=== PATIENT | male | born 1950 | race Caucasian/White ===

== ENCOUNTER 2017-12-15 22:05 | Emergency (ER) | payer MEDICARE, OTHER, SELFPAY ==
[2017-12-15 22:07] VITALS: BP 122/70; PULSE 91; RESP 14; TEMP 37.3; O2SAT 94; BMI 25.7
--- NOTE | 2017-12-15 23:41 | ED.VISSUMM ---
- ER Visit Summary Date of Service: 12/15/17 Chief Complaint: Redness at injection site History of Present Illness: The patient is a 67 M who got a pneumonia shot in his left arm on the . Patient noted redness and warmth at the site tonight. He had subjective fever yesterday as if he might be getting a cold. Redness was not noticed until this evening. Patient has a history of BPH and C. difficile. Physical Examination: Vital signs unremarkable. Temperature here is 99.2. Patient sitting upright in bed no acute distress. He is nontoxic appearing. Head neck examination is unremarkable. Heart is regular rate and rhythm. Lungs sounds are clear. Left upper extremity examination was a 7 x 12 cm area of erythema to the posterior left upper arm. No lymphangitic streaking is noted. No evidence of abscess. Test Results: [] Emergency Department Course and Treatment: My clinical suspicion is that this is localized reaction to the injection as opposed to acute infection. Patient does have history of C. difficile and I am reluctant to cover with antibiotics and my clinical suspicion is low. Hydrocortisone cream will be applied topically in the areas outlined. Patient will follow with his primary care physician tomorrow for a wound check. I spoke with Dr. roberto, on-call for Dr. Hicks. Treatment Plan: [] Disposition: Discharge Impression: Localized reaction to injection This note was generated with [employer] dictation software. It may contain incorrect words, spelling, and punctuation that were not noted in review of the chart prior to signing ED Disposition - Plan for ED Patient: Disposition: Home or Assisted Living Chief Complaint: Allergic Reaction Instructions: ED Allergic Reaction Local Other Referrals: Rosita Hicks DO [Primary Care Provider] - 1 Day
[2017-12-15] MEDS: Hydrocortisone 2.5% Crm 1 APPLIC TOPICAL (23:57)
[2017-12-16 00:02] VITALS: BP 122/70; PULSE 91; RESP 14; O2SAT 94
== END 2017-12-16 00:03 | disposition home or self-care (01) ==
LOC: ED 23:53
PROVIDERS: Emergency Provider Emergency Medicine; Family Provider Internal Medicine; PCP Internal Medicine
DX: T88.1XXA Other complications following immunization, not elsewhere classified, initial encounter (principal); L53.0 Toxic erythema; T50.Z95A Adverse effect of other vaccines and biological substances, initial encounter; N40.0 Benign prostatic hyperplasia without lower urinary tract symptoms; Z79.82 Long term (current) use of aspirin; Z79.899 Other long term (current) drug therapy; Y92.009 Unspecified place in unspecified non-institutional (private) residence as the place of occurrence of the external cause
CPT/HCPCS: 99282

== ENCOUNTER → 2018-04-29 13:58 | Outpatient (CLI) | payer MEDICARE, OTHER, SELFPAY ==
[2018-04-29 15:57] LABS: PSA,Total - Annual Screen 1.62 ng/mL (0.00-4.00)
== END ==
PROVIDERS: Family Provider Internal Medicine; PCP Internal Medicine; Referring Provider Urology; Visit Provider Urology
DX: Z12.5 Encounter for screening for malignant neoplasm of prostate (principal)
CPT/HCPCS: 84153; G0103

== ENCOUNTER → 2019-03-27 09:57 | Outpatient (CLI) | payer MEDICARE, OTHER, SELFPAY ==
--- NOTE | 2019-03-27 10:04 | MRI_ITS ---
STUDY: MRI BRAIN WITH AND WITHOUT CONTRAST (ATTENTION INTERNAL AUDITORY CANALS - I.A.C.''s) REASON FOR EXAM: Male, 68 years old. LEFT TINNITUS HEARING LOSS -- no pain TECHNIQUE: Standardized multiplanar fat and water weighted pulse sequences were obtained. dotarem 17 ml iv was administered for the contrast portion of the examination. COMPARISON: None. FINDINGS: Normal bilateral temporal bones. Normal bilateral internal auditory canals. There is no demonstrated intracanalicular or cisternal vestibular schwannoma (acoustic neuroma). There is no enhancement of the bilateral VIIth or VIIIth cranial nerves. Normal bilateral cochlea, vestibules and semicircular canals. Normal size of the ventricles and extra-axial spaces for the patient''s age. Normal white matter tracts of the supratentorial brain. There is no evidence for recent intracranial ischemia or other cause of cytotoxic edema on diffusion weighted imaging (DWI). Normal bilateral basal ganglia. Normal thalami. Normal flow voids within the major intracranial circulation suggesting patency by spin echo criteria. Normal venous enhancement. There is no enhancing intra-axial or extra-axial abnormality. There is no extra-axial fluid accumulation. Normal sella turcica, pituitary gland, infundibular stalk, optic chiasm and hypothalamus. Normal tectal plate and pineal gland. Normal midbrain, abhijit and medulla. Normal cerebellum. Normal basal cisterns. No demonstrated orbital abnormality, within the constraints of a routine brain study. Normal visualized paranasal sinuses. Normal calvarium and skull base. Normal visualized soft tissue structures. Normal visualized upper cervical spine. MRI/Brain W/WO Contrast IMPRESSION: Normal unenhanced and enhanced MRI of the bilateral internal auditory canals (I.A.C''s). Electronically Signed: Pato Hanna MD at 14:50 EST Tel , Service support ,
[2019-03-27 10:26] LABS: CREATININE FINGERSTICK 0.9 mg/dL (0.70-1.30); EGFR FINGERSTICK > 60.0000 mL/min (>60)
== END ==
PROVIDERS: Family Provider Internal Medicine; PCP Internal Medicine; Referring Provider Otolaryngology; Visit Provider Otolaryngology
DX: H91.92 Unspecified hearing loss, left ear (principal); H93.12 Tinnitus, left ear
CPT/HCPCS: 70553; A9575

== ENCOUNTER → 2019-04-21 11:17 | Outpatient (CLI) | payer MEDICARE, OTHER, SELFPAY ==
[2019-04-21 13:13] LABS: PSA,Total- Diagnostic 2.22 ng/mL (0.0-4.0)
== END ==
PROVIDERS: PCP Internal Medicine; Referring Provider Urology; Visit Provider Urology
DX: N40.1 Benign prostatic hyperplasia with lower urinary tract symptoms (principal)
CPT/HCPCS: 36415; 84153

== ENCOUNTER → 2020-12-13 08:33 | Outpatient (CLI) | payer MEDICARE, OTHER, SELFPAY | PROVIDERS: PCP Internal Medicine; Visit Provider Nurse Practitioner | DX: Z20.822 Contact with and (suspected) exposure to COVID-19 (principal) | CPT/HCPCS: 87635; C9803; U0005; U0003 ==

== ENCOUNTER 2021-05-30 10:51 | Outpatient (CLI) | payer MEDICARE, OTHER, SELFPAY ==
[2021-05-30 11:57] LABS: PSA,Total - Annual Screen 1.84 ng/mL (0.00-4.00)
== END 2021-05-30 23:59 | disposition home or self-care (01) ==
LOC: LAB 10:55
PROVIDERS: PCP Internal Medicine; Referring Provider Urology; Visit Provider Urology
DX: Z12.5 Encounter for screening for malignant neoplasm of prostate (principal)
CPT/HCPCS: 36415; 84153; G0103

== ENCOUNTER 2021-12-19 11:44 | Emergency (ER) | payer OTHER, MEDICARE, SELFPAY ==
[2021-12-19 11:45] VITALS: BP 160/108; PULSE 98; RESP 18; TEMP 36.1; O2SAT 90; BMI 26.5
--- NOTE | 2021-12-19 12:29 | RAD_ITS ---
INDICATION: trauma EXAMINATION/TECHNIQUE: X-RAY - RIGHT HAND XR Fingers Min 2 Views 3 VIEWS COMPARISON: None. FINDINGS: SOFT TISSUES: Soft tissue views tissue prominence visualized surrounding the ankle, subcutaneous soft tissue densities are visualized most prominent along the posterior and lateral aspect of the distal interphalangeal joint. BONES/JOINTS: No acute fracture or subluxation.. Unremarkable alignment. Preservation of the joint space. Degenerative bone changes seen.. No sclerotic or destructive changes observed. RAD/Finger(s) Min 2 Views IMPRESSION: Soft tissue prominence, no underlying osseous abnormality is seen. Electronically Signed: Johnathon Mora MD at 13:10 EDT ,
--- NOTE | 2021-12-19 12:30 | EX.ED.UPPERE ---
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 He notes 2 lacerations. Bleeding was controlled at the scene. He notes some swelling at the interphalangeal joint. Last tetanus was in 2014. He was not wearing any gloves. Tetanus Immunization: 5-10 years PFSH [facility] Medical History (Updated 12/19/21 @ 13:[address] Blu Rene DO) BPH (benign prostatic hyperplasia) C. difficile colitis Home Medications antiarthritic combination no.2 900 mg tablet (glucosamine-chondroitin) 900 mg PO DAILY 11/12/14 [History Last Taken 03/05/15] aspirin 81 mg chewable tablet 81 mg PO DAILY@0800 01/24/15 [History Last Taken 03/05/15] multivitamin with folic acid 400 mcg tablet (Thera) 1 tab PO DAILY 01/24/15 [History Last Taken 03/05/15 08:00] finasteride 5 mg tablet (Proscar) 5 mg PO BID 12/15/17 [History Last Taken Unknown] tamsulosin 0.4 mg capsule (Flomax) 0.4 mg PO DAILY 12/15/17 [History Last Taken Unknown] Allergy/AdvReac Type Severity Reaction Status Date / Time amoxicillin Allergy Rash Verified 12/19/21 11:48 Social History (Updated 12/19/21 @ 12:[address] Blu Rene DO) household members: spouse current occupational status: employed Smoking Status: Never smoker ROS ROS ED Constitutional Constitutional ED: Denies chills or weight loss Eyes Eyes: Denies change in vision or diplopia ENT ENT ED: Denies ear pain, rhinorrhea or sore throat Cardiovascular Cardiovascular: Denies chest pain, orthopnea, palpitations or racing heartbeat Respiratory/Chest Respiratory/Chest: Denies cough, dyspnea or orthopnea Gastrointestinal Gastrointestinal: Denies abdominal pain, diarrhea, nausea or vomiting Genitourinary Genitourinary ED: Denies dysuria, hematuria or urinary frequency Musculoskeletal Musculoskeletal: Reports other Details: See HPI ; Denies arthralgias or myalgias Integumentary Denies abscess or rash Neurologic Neurologic: Denies headache(s) or weakness Psychiatric Psychiatric: Denies anxiety, depression, suicidal ideation or suicidal thoughts Endocrine Endocrinology: Denies polydipsia, polyphagia or polyuria Allergic/Immunologic Allergic/Immunologic ED: Denies mouth swelling, tongue swelling or urticaria EXAM Physical Exam Const Vital Signs: 12/19/21 11:45 Temperature 97 F L Temperature Source Temporal Pulse Rate 98 Respiratory Rate 18 Blood Pressure 160/108 H Blood Pressure Mean 125 Pulse Ox 90 Oxygen Delivery Method Room Air Positive well nourished and well developed General Appearance ED: well developed HEENT Reports normocephalic, head/scalp atraumatic and moist mucous membranes Eyes PERRL and EOMs intact bilaterally Neck no lymphadenopathy, supple and no JVD Resp normal respiratory effort and clear to auscultation bilaterally Cardio regular rate, regular rhythm and no murmurs GI normal to inspection, nondistended, normoactive bowel sounds and non-tender Palpation: soft Back/Spine no CVA tenderness and normal ROM Extremity Extremity Narrative: There is a 2.5 cm irregular laceration over the lateral aspect of the left thumb. There is swelling at the interphalangeal joint but he is able to flex and extend. There is a 1 cm laceration in the webspace between the left thumb and index finger. Neurovascular intact. There is also a superficial abrasion of the left palm. General Extremety ED: Negative for edema General Extremity: Negative for edema Neuro oriented x3 and CN's II-XII intact bilaterally Sensorium / Orientation: alert Motor Exam: strength 5/5 throughout Psych mental status grossly normal Mood & Affect: Negative for depressed or tearful Skin no rashes or lesions noted and no wounds MDM MDM MDM Narrative Medical decision making narrative: My interpretation of the plain films of the thumb is no acute fracture. Wounds were locally anesthetized using 1% lidocaine. There were washed with Shur-Clens and explored. Using 5-0 Ethilon sutures the wounds were closed. Wounds will be dressed by nursing. Follow-up 7 days for suture removal. Discharge Plan Triage Chief Complaint: Laceration ED Provider: Blu Rene Dx/Rx/DC Orders Clinical Impression: Crush injury to finger, Laceration of finger, Abrasion hand Instructions: ED Crush Injury, Hand, ED Laceration, Hand: All Closures Prescriptions: No Action antiarthritic combination no.2 [glucosamine-chondroitin] 900 MG tablet 900 mg PO DAILY Label Comments: arthritis aspirin 81 MG Tab.Chew 81 mg PO DAILY@0800 Label Comments: blood thinner multivitamin with folic acid [Thera] 1 TABLET tablet 1 tab PO DAILY Label Comments: Vitamin tamsulosin [Flomax] 0.4 MG capsule 0.4 mg PO DAILY finasteride [Proscar] 5 MG tablet 5 mg PO BID Primary Care Provider: Rosita Hicks Referrals: Rosita Hicks DO [Primary Care Provider] - 7 Days for suture removal Disposition Disposition: Home, Self Care
[2021-12-19] MEDS: Diphth,Pertuss(Acell),Tet Vac 0.5 ML Vial IM (12:43)
[2021-12-19] MEDS: Lidocaine 1% (20 ml mdv) 20 ML Vial INFILT (13:55)
== END 2021-12-19 14:08 | disposition home or self-care (01) ==
PROVIDERS: Emergency Provider Emergency Medicine; PCP Internal Medicine; Visit Provider Emergency Medicine
DX: S61.012A Laceration without foreign body of left thumb without damage to nail, initial encounter (principal); W23.0XXA Caught, crushed, jammed, or pinched between moving objects, initial encounter; Y99.0 Civilian activity done for income or pay; Z79.82 Long term (current) use of aspirin
CPT/HCPCS: 12001; 73140; 90715; 99283

== ENCOUNTER → 2022-05-29 | Outpatient (CLI) | payer MEDICARE, OTHER, SELFPAY ==
[2022-05-29 11:01] LABS: PSA,Total - Annual Screen 1.75 ng/mL (0.00-4.00)
== END | disposition home or self-care (01) ==
LOC: LAB 09:37
PROVIDERS: PCP Internal Medicine; Referring Provider Urology; Visit Provider Urology
DX: Z12.5 Encounter for screening for malignant neoplasm of prostate (principal)
CPT/HCPCS: 36415; 84153; G0103

== ENCOUNTER → 2022-07-17 | Outpatient (CLI) | payer MEDICARE, OTHER, SELFPAY ==
[2022-07-17 13:06] LABS: Potassium 4.8 mmol/L (3.5-5.1)
== END | disposition home or self-care (01) ==
LOC: LABSPEC 12:44
PROVIDERS: PCP Internal Medicine; Referring Provider Internal Medicine; Visit Provider Internal Medicine
DX: E78.00 Pure hypercholesterolemia, unspecified (principal)
CPT/HCPCS: 84132

== ENCOUNTER 2023-02-13 05:54 | Day surgery (SDC) | payer MEDICARE, OTHER, SELFPAY ==
--- NOTE | 2023-02-04 08:35 | EKG12_ITS ---
Test Reason : PRE OP Blood Pressure : / mmHG Vent. Rate : 076 BPM Atrial Rate : 076 BPM P-R Int : 162 ms QRS Dur : 110 ms QT Int : 384 ms P-R-T Axes : 061 002 071 degrees QTc Int : 432 ms Sinus rhythm with Premature atrial complexes Septal infarct (cited on or before 13-NOV-2014) Abnormal ECG Confirmed by LUCY FONTENOT, DOLLY ([id number]), editor city [place] ([id number]) on 02/11/2023 7:28:56 AM Referred By: Marya Russ Confirmed By:PERI AYALA MD
[2023-02-13 06:28] VITALS: BP 149/94; PULSE 58; RESP 16; TEMP 37.1; O2SAT 100; BMI 25.6
[2023-02-13] MEDS: Lactated Ringers 1,000 ML 15 ML IV ×2 (06:45→08:33)
--- NOTE | 2023-02-13 07:08 | HP.PCM_ITS ---
History and Physical Date of Admission: 02/13/23 Date of Service: 01/21/23 MR#: [id number] Acct: [id number] Name: RADHA MENG Rep #: [id number] : 1950 Provider: Dr. Marya Russ MD Age/Sex: 72/M Location: [facility] Status: Signed Intake Vital Signs 10/18/2307:49 01/21/2309:13 Height 5 ft 10 in 5 ft 10 in Weight: 183 lb 2 oz 183 lb BMI 26.2 26.2 BP 142/90 H 121/71 H Blood Pressure Location Rt brachial Rt brachial Position Sitting Sitting Respiration 18 16 Pulse 69 Pulse Source Monitor Temp 97.2 F L Temp Source Tympanic Pulse Oximetry (%) 96 Intake Visit Reasons: UPDATE H&P FOR UMBILICAL HERNIA Chief Complaint: umbilical hernia [employer] Checker Required: No Is patient in pain?: No Allergies amoxicillin Allergy (Verified 01/21/23 09:14) Rash Medications antiarthritic combination no.2 900 mg tablet (glucosamine-chondroitin) 900 mg PO DAILY 11/12/14 [History Confirmed 01/21/23] aspirin 81 mg chewable tablet 81 mg PO DAILY@0800 01/24/15 [History Confirmed 01/21/23] multivitamin with folic acid 400 mcg tablet (Thera) 1 tab PO DAILY 01/24/15 [History Confirmed 01/21/23] finasteride 5 mg tablet (Proscar) 5 mg PO BID 12/15/17 [History Confirmed 01/21/23] tamsulosin 0.4 mg capsule (Flomax) 0.4 mg PO DAILY 12/15/17 [History Confirmed 01/21/23] doxycycline hyclate 100 mg capsule mg PO 01/21/23 [History Confirmed 01/21/23] PFSH Medical History (Updated 01/22/23 @ 10:[address] Marya Russ MD) BPH (benign prostatic hyperplasia) C. difficile colitis Infected hand Syncope Family History Mother ArthritisMother Heart diseaseFather Heart diseaseMother SeizuresMother CVA (cerebral vascular accident) Social History household members: spouse current occupational status: employed Smoking Status: Never smoker HPI HPI HPI: 72-year-old male presents for update H&P for umbilical hernia repair. Patient was previously seen in office in September. Patient still denies any pain at the site and there may be about 3 years. 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 ROS General General: No weight change, appetite, fatigue, colon cancer or breast cancer HEENT HEENT: No difficulty swallowing, eye injury, eye surgery, swollen glands or hoarseness Endo Endocrine: No thyroid disease, diabetes mellitus, thyroid cancer, Hair loss, heat intolerance or cold intolerance Skin Skin: No rash or changing moles Musc Musculoskeletal: Yes arthritis; No back problems, rheumatoid arthritis, gout or joint pain Cardio Cardiovascular: No murmur, pacemaker, heart disease, atrial fibrillation, high blood pressure, heart attack, heart stent, palpitations, shortness of breat with exertion or chest pain Psych Psychiatric: No depression, anxiety or hearing voices Resp Respiratory: No shortness of breath, No sleep apnea, No cough, No COPD, No asthma, No emphysema and No wheezing Gastro Gastrointestinal: No abdominal pain, No nausea or vomiting, No diarrhea, No constipation, No blood in stool, No acid reflux, Yes hemorrhoids, No ulcers, No gallbladder problem and No black,tarry stools Ajit Hematologic: No blood thinners, No blood disorders, No bleeding, No anemia and No blood clots Neuro Neurologic: No numbness and No tingling Exam Const General: cooperative, healthy appearing, comfortable and no acute distress [facility] Head: normocephalic and atraumatic Neck Neck: supple Resp Effort & Inspection: normal respiratory effort Cardio Rate: regular rate GI Inspection: non-distended Palpation: soft, hernia umbilical (Partially reducible, soft) and nontender Skin General: no rashes or lesions noted Neuro General: CN's II-XI intact bilaterally Extrem General: normal to inspection Psych Mental Status: mental status grossly normal Attitude: cooperative Assessment and Plan Assessment and Plan (1) Incarcerated umbilical hernia: Status: Acute Plan Plan to do an umbilical hernia repair with mesh. Reviewed the procedure with the patient including the risks, including but not limited to infection, bleeding, injury to the small bowel, and recurrence. All questions were answered. Marya Russ M.D. Pager: [phone] [facility] [address] [place] [address], [address] [place] [address] Office: [phone] Coding Level of Care Code Off vis,est,level 3 Diagnoses Incarcerated umbilical hernia K42.0 01/22/23 1022 <Electronically signed by Marya Russ MD> Date Marya Russ MD
[2023-02-13] MEDS: Clindamycin 900 MG/50 ML BAG 75 MG IV (07:25)
--- NOTE | 2023-02-13 08:04 | OP.PCM_ITS ---
Report of Operation Date of Procedure: 02/13/23 Pre-Operative Diagnosis: Incarcerated umbilical hernia Post-Operative Diagnosis: Same Surgery/Procedure Performed:: Incarcerated umbilical hernia repair with mesh Surgeon: Marya Russ integration engineer: Alvaro Barrett Type of Anesthesia: General/Supplemental Anesthesiologist: Uri Brennan Special Medications: Clindamycin 900 mg IV x1 Specimen's removed: None Estimated Blood Loss (mL): < 5 cc Description of Procedure: Patient was brought into the room placed supine on the operating table. Correct patient, procedure, site, positioning, special, was verified prior to procedure. General anesthesia was induced. The abdomen was prepped draped in usual sterile fashion. A curvilinear incision was made below the umbilicus with a 15 blade scalpel. This was deepened with electrocautery. A hemostat was used to go around the stalk of the umbilicus and Metzenbaum scissors was used to carefully divide the hernia sac from the skin of the umbilicus. The fascia around the hernia defect was cleared and the hernia defect measured 1 cm x [address] hernia patch 4.3 cm was selected. This was secured laterally at its tails with 0 Prolene horizontal mattress suture. The hernia defect was closed with a [id number] 0 Prolene. The wound was irrigated with saline. Hemostasis was assured. The skin of the umbilicus was secured to the fascia using 3-0 Vicryl suture interrupted. The incision was closed with 3-0 Vicryl subdermal interrupted sutures and the skin was closed with interrupted 4-0 Monocryl sutures. Steri-Strips and Tegaderm and OpSite were placed over the incision once sterile cotton balls were placed in the umbilicus. Patient was extubated. Patient tolerated procedure well and was taken to the postanesthesia care unit in stable condition. Grafts/Implants Used: Ventralex ST hernia patch 4.3 cm Lot [id number] [id number] Complications none
--- NOTE | 2023-02-13 08:06 | DCINST_ITS ---
Discharge Instructions Diet Discharge Diet: Light diet - advance as tolerated Activity May shower in (days): 5 (Keep umbilical dressing clean dry and intact for 5 days. Okay to tape off with a Ziploc bag to shower. Or lower shower and upper sponge bath.) Lifting Restrictions: no lifting >20 lbs x 2 wks, no strenuous exercise for 4 wks Additional Activity Instructions:: - Dressing / Incision Call your doctor if your incision/area has: Continuous Slow Oozing, Sudden Increased Bleeding, Increased Pain/ Swelling, Increased Redness, Foul Smelling Discharge and Swelling at the incision site Call your doctor if you observe: Fever of 101 or Higher Remove Dressing in: 5 days (After 5 days okay to remove surgical dressing. Place cotton ball or rolled up gauze in bellybutton and retape daily for 2 more days.) Cleanse incision/area with: Do not get Incision Wet (for 5 days) Additional Dressing/Incision Instructions:: Steri-Strips will fall off in 7 to 10 days, if they do not fall off okay to remove after 10 days. Follow Up Care Please Follow Up With: Marya Russ MD When: Call the office for a follow-up appointment 2 weeks; after 5 PM and on the weekends call [phone] with any concerns. Test Results: Test results from this visit will be discussed in further detail at your follow- up appointment, if applicable. Discharge Plan Admission Attending Provider: Marya Russ Primary Care Provider: Rosita Hicks Discharge Orders/Prescriptions Prescriptions: New tramadol 50 mg tablet 50 mg PO Q6H PRN (Reason: pain) 3 Days Qty: 5 0RF Continued glucosamine-chondroitin 900 MG tablet 900 mg PO DAILY Patient Comments: arthritis multivitamin with folic acid [Thera] 1 TABLET tablet 1 tab PO DAILY Patient Comments: Vitamin tamsulosin [Flomax] 0.4 MG capsule 0.4 mg PO QHS finasteride [Proscar] 5 MG tablet 5 mg PO DAILY ascorbic acid (vitamin C) [C-1000] 1,000 mg tablet 1 g PO DAILY Held aspirin 81 MG tablet,chewable 81 mg PO .QOD Hold Instructions: Resume on 02/16/23. Patient Comments: blood thinner WILL QUIT 5 DAYS BEFORE SURGERY Referrals / Follow Up: Rosita Hicks DO [Primary Care Provider] - Disposition Disposition (needs filled in before D/C Order can be placed): Home, Self Care
[2023-02-13] MEDS: Bupivacaine Mpf 0.5% 30 ML VIAL (08:15)
[2023-02-13 08:26] VITALS: BP 130/79; BP 149/94; PULSE 79; RESP 16; TEMP 36.4; O2SAT 98
[2023-02-13 08:30] VITALS: BP 133/81; BP 149/94; PULSE 80; RESP 16; O2SAT 100
[2023-02-13 09:00] VITALS: BP 136/79; BP 149/94; PULSE 72; RESP 16; TEMP 36.4; O2SAT 97
[2023-02-13 10:50] VITALS: BP 149/94; BP 152/97; PULSE 75; RESP 16; TEMP 36.3; O2SAT 100
== END 2023-02-13 10:56 | disposition home or self-care (01) ==
LOC: SDC 05:56 → AC 05:56
PROVIDERS: PCP Internal Medicine; Referring Provider Surgery; Visit Provider Surgery
PROC: (CPT 49592; principal; 2023-02-13 07:15)
DX: K42.0 Umbilical hernia with obstruction, without gangrene (principal); Z79.82 Long term (current) use of aspirin
CPT/HCPCS: 49592; 00830; 93005; J7120; C1781; J2405

== ENCOUNTER → 2023-06-13 | Outpatient (CLI) | payer MEDICARE, OTHER, SELFPAY ==
[2023-06-13 13:38] LABS: PSA,Total - Annual Screen 2.32 ng/mL (0.00-4.00)
== END | disposition home or self-care (01) ==
LOC: LAB 12:14
PROVIDERS: PCP Internal Medicine; Referring Provider Registered Nurse; Visit Provider Registered Nurse
DX: Z12.5 Encounter for screening for malignant neoplasm of prostate (principal)
CPT/HCPCS: 36415; 84153; G0103

== ENCOUNTER → 2024-06-16 | Outpatient (CLI) | payer MEDICARE, OTHER, SELFPAY | END | disposition home or self-care (01) | LOC: MTLAB 10:52 | PROVIDERS: PCP Internal Medicine; Referring Provider Nurse Practitioner; Visit Provider Nurse Practitioner | DX: Z12.5 Encounter for screening for malignant neoplasm of prostate (principal) | CPT/HCPCS: 36415; 84153; G0103 ==

== ENCOUNTER → 2024-07-15 | Outpatient (CLI) | payer MEDICARE, OTHER, SELFPAY ==
--- NOTE | 2024-07-15 14:58 | VDUE_ITS ---
Reason For Study Reason For Study: Right arm pain Right Proximal Right jugular vein is spontaneous, widely patent, phasic, with no intraluminal echogenicity noted. Right subclavian vein is spontaneous, widely patent, phasic, with no intraluminal echogenicity noted. Right Lower Arm Right radial vein is compressible. Right ulnar vein is compressible. Right Arm Right axillary vein is spontaneous, patent, phasic, competent, compressible and demonstrates augmentation. Right brachial vein is compressible. Right cephalic vein is compressible. Right basilic vein is compressible. Procedure This was a unilateral right upper extremity venous doppler examination. A preliminary report was called and/or faxed to [facility]AN[facility]. VL/Venous Duplex US, Unilateral Interpretation Summary Deep veins of the right upper extremity are patent and compressible segmentally . There is no evidence of deep vein thrombosis. Superficial veins of the right upper extremity are patent and compressible segm entally. There is no evidence of superficial vein thrombosis. Ordering Physician: Flavia Jacome Referring Physician: Rosita Hicks M.D. Performed By: Alba Hernandez RVT ???
== END | disposition home or self-care (01) ==
LOC: CVS 14:55
PROVIDERS: PCP Internal Medicine; Referring Provider Nurse Practitioner Family; Visit Provider Nurse Practitioner Family
DX: M79.602 Pain in left arm (principal); M79.89 Other specified soft tissue disorders
CPT/HCPCS: 93971

== ENCOUNTER → 2024-12-07 | Outpatient (CLI) | payer MEDICARE, OTHER, SELFPAY ==
--- NOTE | 2024-12-07 11:46 | US_ITS ---
PROCEDURE: KIDNEY AND BLADDER 12/07/2024 REASON FOR EXAM: COMPLETE ULTRASOUND OF KIDNEY; RIGHT EVAL COMPLEX R RENAL CYST SE TECHNIQUE: Procedure Code: USKI Modality: US Procedure: KIDNEY AND BLADDER COMPARISON: None FINDINGS: Kidneys: Normal renal sizes, parenchymal thicknesses, and echotextures. [place]: No evidence of hydronephrosis. Cysts or Masses: There is a 1.4 cm x 1 cm x 1.2 cm cyst in the right kidney. 2.8 cm cyst in the left kidney. Other: Prostate volume measures 57.7 mL. RIGHT Kidney Size: 10.6 cm x 6.1 cm x 4.6 cm Volume: 155.16 mL Cortical Thickness (if discernible): 16 mm (>6mm is normal) LEFT Kidney Size: 14.7 cm x 6.3 cm x 5.6 cm Volume: 217.83 mL Cortical Thickness (if discernible): 17 mm (>6mm is normal) There is a 1.7 cm x 2 cm x 0.8 cm left intrarenal calculus. US/Kidney and Bladder IMPRESSION: Bilateral renal cysts. 1.7 cm 2 cm 0.8 cm calculus in the left kidney. Reading Location: [id number]
== END | disposition home or self-care (01) ==
LOC: US 11:38
PROVIDERS: PCP Internal Medicine; Referring Provider Internal Medicine; Visit Provider Internal Medicine
DX: N28.1 Cyst of kidney, acquired (principal)
CPT/HCPCS: 76770

== ENCOUNTER → 2025-01-15 | Outpatient (CLI) | payer MEDICARE, OTHER, SELFPAY ==
--- NOTE | 2025-01-15 07:11 | CT_ITS ---
PROCEDURE: ABDOMEN/PELVIS WITHOUT CONT 01/15/2025 REASON FOR EXAM: GROSS HEMATURIA Colon cancer. TECHNIQUE: Procedure Code: CTABDPEL Modality: CT Procedure: ABDOMEN/PELVIS WITHOUT CONT Noncontrast technique limits evaluation of the abdominal and pelvic viscera. Coronal and Sagittal reconstruction series were provided. One or more dose reduction techniques were used (e.g., Automated exposure control, adjustment of the mA and/or kV according to patient size, use of iterative reconstruction technique). RADIATION DOSE SUMMARY: CTDlvol: 8.8 mGy DLP: 396 mGycm COMPARISON: Ultrasound November 2024 FINDINGS: Lung bases: Moderate emphysematous changes. ABDOMEN Liver: Negative. Biliary system: Negative. Negative for intrahepatic or extrahepatic ductal dilatation. Gallbladder: Contains stones. Negative for cholecystitis. Spleen: Negative. Pancreas: Negative. Adrenals: Negative. Kidneys: Bilateral parapelvic cysts. Nonobstructing kidney stones. Greater on the left. Bowel: Mild increased stool throughout the colon. Negative for small or large- bowel obstruction. Appendix: The appendix is not identified. There is no inflammatory process identified in the right lower quadrant to suggest appendicitis. Vasculature: Moderate atherosclerotic vascular calcifications of the abdominal aorta and its branches. Peritoneum / Retroperitoneum: Negative. PELVIS Lymph nodes: Negative for inguinal or iliac adenopathy. Bladder: Urinary bladder negative. Reproductive Organs: Prostate negative. Bones and Soft Tissues: age appropriate appearance off the lumbar spine hips and pelvis. CT/Abdomen/Pelvis without Cont IMPRESSION: Nonobstructing kidney stones. Parapelvic cysts. Negative for acute intra-abdominal or pelvic pathology. Reading Location: [id number]
--- OUTSIDE RECORDS SUMMARY | 2025-01-15 07:16 | XMS RPT_ITS | CCD ---
Author Organization [facility] CliniSyga Care Team Providers Care Monotype Operator Name Role Phone Rosita Capone Unavailable Kole Juan Unavailable Meghan Caro Unavailable Rashad Proctor Unavailable Gravius, Vanita Unavailable Unavailable Messenger, Sandrita Unavailable Unavailable long, dalia Unavailable Unavailable Unavailable Unavailable Rosita Capone Unavailable Kole Juan Unavailable Meghan Caro Unavailable Rashad Proctor Unavailable Gravius, Vanita Unavailable Unavailable Messenger, Sandrita Unavailable Unavailable George Portillo Unavailable Unavailable Unavailable Unavailable Ninoska Law Unavailable Unavailable George Portillo Unavailable Unavailable Sherman Zheng Unavailable Barb Otto Unavailable Unavailable Messenger, Sandrita Unavailable Unavailable Ciesa, Jacki Unavailable George Francis Unavailable Unavailable Slarb, Rach Unavailable Unavailable Alvaro, dalia Unavailable Unavailable Rosita Capone DO Unavailable Kole Juan MD Unavailable Meghan Caro MD Unavailable Dr. Rashad Proctor Unavailable Sherman Zheng MD Unavailable Slarb CLINICAL DIRECTOR, Rach Unavailable Unavailable Messenger RN, Sandrita Unavailable Unavailable Cross Barb MCKEON Unavailable Unavailable Ciesroseann GOODEN, Jacki Unavailable Ivis ANGULO, Kati Unavailable Unavailable Unavailable Unavailable Alyssa CLINICAL DIRECTOR, Lou Unavailable Unavailable Gravius LANDFILL ATTENDANT, Vanita Unavailable Unavailable Liborio DORosita Unavailable Yosef LANDFILL ATTENDANT, Kayela Unavailable Unavailable Liborio DO, Rosita Attending Unavailable Liborio DORosita Referring Unavailable Liborio DO, Rosita Consulting Unavailable Boyd Sánchez Unavailable Dr. Rosita Capone Primary Care Provider [phone] Dr. Mauricio Montgomery Attending Provider Ziggy CLINICAL DIRECTOR, Max Unavailable Unavailable Unavailable Unavailable Marya Russ Unavailable Marco CLINICAL DIRECTOR, NADEGE Unavailable Unavailable Flavia Jacome CNP Unavailable Dr. Rosita Capone Primary Care Provider [phone] Dr. Rosita Capone Referring Provider Dr. Marya Russ Attending Provider Dr. Marya Russ Referring Provider Dr. Marya Russ Other Provider Dr. Rosita Capone Primary Care Provider [phone] Dr. Marya Russ Attending Provider Dr. Marya Russ Referring Provider Dr. Rosita Capone Referring Provider Rosita Capone DO Primary Care Provider Dr. Rosita Capone DO Primary Care Provider Dr. Mauricio Montgomery MD Attending Provider Amanda White Attending Provider Amanda White Referring Provider Ayaz MARTINEZ-CFlavia Attending Provider Ayaz MARTINEZ-CFlavia Referring Provider Deondre FONTENOT, Dr. Grewal Attending Provider LIBORIO TURNER, DR BECKER Primary Care Physician JONATHAN FONTENOT, CELIA Attending Unavailable LIBORIO DO, DR BECKER Primary Care Unavailab mora Brown ZAID, Bridget Tapia Unavailable Unavailable JONATHAN FONTENOT, CELIA Attending Unavailable LIBORIO DO, DR BECKER Primary Care Unavailab Kim FONTENOT, CELIA Admitting Unavailable JONATHAN FONTENOT, CELIA Attending Unavailable VERONICA FONTENOT, HOLLY Christianson Consulting Unavailable LIBORIO DO, DR BECKER Primary Care Unavailab le PALUTSIS DO, TRISTIAN Tapia Consulting Unavail able JONATHAN FONTENOT, CELIA Attending Unavailable LIBORIO DO, DR BECKER Primary Care Unavailab mora CASTILLO MD, CELIA Attending Unavailable LIBORIO DO, DR BECKER Primary Care Unavailab le LIBORIO DO, DR BECKER Primary Care Unavailab le LIBORIO DO, DR BECKER Attending Unavailab mora CASTILLO MD, CELIA Attending Unavailable LIBORIO DO, DR BECKER Primary Care Unavailab mora Castillo MD, Celia Stone Unavailable [phone] ROSITA CAPONE [facility] Unavailab JT Cramer Attending Unavailable SALAMANCABASSAMCATHIE Referring Unavailable LIBORIOROSITA [facility] Unavailab le SALAMANCA, CATHIE Referring Unavailable LIBORIOROSITA [facility] Unavailab le SALAMANCATRISHNA Attending Unavailable SALAMANCATRISHNA Referring Unavailable LIBORIOROSITA [facility] Unavailab le SALAMANCA, CATHIE Referring Unavailable LIBORIOROSITA [facility] Unavailab le SALAMANCA, CATHIE Referring Unavailable LIBORIOROSITA [facility] Unavailab le SALAMANCA, CATHIE Referring Unavailable LIBORIOROSITA [facility] Unavailab le SALAMANCA, CATHIE Referring Unavailable LIBORIOROSITA [facility] Unavailab le LiborioRosita Referring Unavailable Rosita Capone Primary Care Unavailable Rosita Capone Attending Unavailable Rosita Capone Referring Unavailable [facility] Care Unavailable Rosita Capone Attending Unavailable Mauricio Montgomery Attending Unavailable Rosita Capone [facility] Care Unavailable Rosita Capone Primary Care Unavailable Flavia Jacome Referring Unavailable Uri Mendosa Attending Unavailable PetersburgAmanda Attending Unavailable PetersburgAmanda Referring Unavailable Liborio, Rosita Primary Care Unavailable Flavia Jacome Attending Unavailable Flavia Jacome Referring Unavailable Rosita Capone Primary Care Unavailable Liborio TURNER, Dr. Becker Primary Care Physician Dr. Rosita Capone DO Attending Physician [phone] Dr. Rosita Capone DO Referring Provider Allergies Allergy Classification Reported Allergen(s) Allergy Type Date of Onset Reaction(s) Facility (20 sources) Penicillins; Translations: [Penicillins] allergy to substance [facility] Work Phone: Comment on above: Hives (20 sources) Amoxicillin; Translations: [amoxicillin] Drug Allergy 12-20-19 22 Rash, Eruption of skin (disorder) [facility] (5 sources) Adhesive Tape; Translations: [adhesive tape] Allergy to substance 03-18-20 23 Rash [facility] (14 sources) Adhesive Tape-Silicones; Translations: [ADHESIVE TAPE-SILICONES] Drug Allergy 05-22-19 25 Rash [facility] (5 sources) Benzalkonium / Lidocaine; Translations: [benzalkonium chloride-lidocai ne topical] Drug Allergy Eruption of skin (disorder) [facility] (1 source) Amoxicillin Drug Allergy 03-18-20 23 [facility] Repository NEGATED: Highlighted row has been ruled out! (1 source) drug allergy 05-06-19 13 [facility] Work Phone: Medications Current Medications Medication Drug Class(es) Dates Sig (Normalized) Sig (Original) Antiarthritic Combination No.2 (Glucosamine-Chondroit in) 900 MG tablet (8 sources) Start: 11-12-2014 take 1 tablet by mouth once daily Start: 11-12-2014 take 1 tablet by steven th once daily Antiarthritic Combination No.2 (Glucosamine-Chondroitin) 900 MG tablet Active 900 mg PO DAILY November 12, 2014 12:00am Start: 11-12-2014 take 1 tablet by steven th once daily Antiarthritic Combination No.2 (Glucosamine-Chondroitin) 900 MG tablet Active 900 MG PO DAILY November 11, 2014 11:00pm Start: 11-12-2014 take 1 tablet by steven th once daily Antiarthritic Combination No.2 (Glucosamine-Chondroitin) 900 MG tablet Active 900 MG PO DAILY November 12, 2014 12:00am ascorbic acid 1000 mg oral tablet (18 sources) Vitamin C Start: 01-31-2023 take 1 tablet by steven th once daily Start: 01-31-2023 take 1 tablet by mouth once da agusto Ascorbic Acid (Vitamin C) (C-1000) 1,000 mg tablet Active 1 g PO DAILY January 31, 2023 12:00am Start: 01-31-2023 take 1 tablet by mouth once da agusto Ascorbic Acid (Vitamin C) (C-1000) 1,000 mg tablet Active 1 GM PO DAILY January 31, 2023 12:00am Start: 01-31-2023 take 1 tablet by mouth once da agusto Ascorbic Acid (Vitamin C) (C-1000) 1,000 mg tablet Active 1 GM PO DAILY January 30, 2023 11:00pm take 1 tablet by mouth once jodi y ascorbic acid, vitamin C, (VITAMIN C) 500 mg tablet Take 500 mg by mouth once daily. Active chondroitin sulfates / glucosamine (20 sources) Start: 08-05-2024 take 1 tablet by mouth once daily Chondroitin-Glucosamine oral tablet Dose = 1 tab(s), Oral, qDay, 0 Refill(s) Start Date: 08/05/24 Status: Ordered Repeat number: 1 take 1 tablet by mouth once jodi y GLUCOSAMINE CHONDROITIN (PO Tab) 1 QD for 0 days Refills: 0 Ordered: 25-Dec-2007 Sandrita Smith RN Active take 1 tablet by mouth once jodi y GLUCOSAMINE CHONDROITIN (PO Tab) 1 QD for 0 days Refills: 0 Ordered: 25-Dec-2007 Sandrita Smith RN Active take 1 tablet by mouth once jodi y GLUCOSAMINE CHONDROITIN (PO Tab) 1 QD for 0 days Refills: 0 Ordered: 25-Dec-2007 Sandrita Smith LPN Active ferrous sulfate 200 mg oral tablet (16 sources) Start: 08-05-2024 ferrous sulfat e 200 mg (65 mg elemental iron) oral tablet Dose : 200 mg = 1 tab(s), Oral, qDay, # 120 tab(s), 0 Refill(s) Start Date: 08/05/24 Status: Ordered Quantity: 120.0 Unit: tab(s) Repeat number: 1 take 1 tablet by mouth once jodi y ferrous sulfate (IRON, FERROUS SULFATE,) 325 mg (65 mg iron) tablet Take 325 mg by mouth once daily. Active finasteride 5 mg oral tablet (20 sources) 5-alpha Reductase Inhibitor Start: 07-20-2024 Proscar 5 mg oral tablet Dose : 5 mg = 1 tab(s), Oral, qAM, # 30 tab(s), 0 Refill(s) Start Date: 07/20/24 Status: Ordered Quantity: 30.0 Unit: tab(s) Repeat number: 1 Start: 12-15-2017 take 1 tablet by steven th twice daily Finasteride (Proscar) 5 MG tablet Active 5 MG PO TWICE A DAY December 15, 2017 12:00am Start: 01-12-2016 take 1 tablet by steven th once daily fluticasone propionate 0.05 mg/actuat metered dose nasal spray (13 sources) Corticosteroid take 1 spray(s) nasal route once daily as needed fluticasone (FLONASE ALLERGY RELIEF) 50 mcg/actuation nasal spray Use 1 [place] in each nostril once daily as needed. Active glucosamine sulfate 500 mg oral capsule (2 sources) Start: 07-20-2024 glucosamine 500 mg oral capsule Dose : 500 mg = 1 cap(s), Oral, Daily, 0 Refill(s) Start Date: 07/20/24 Status: Ordered Repeat number: 1 glucosamine HCl/chondroitin hall (GLUCOSAMINE-CHONDROI TIN ORAL) (13 sources) take 1 tablet by mouth once daily glucosamine HCl/chondroitin hall (GLUCOSAMINE-CHONDROIT IN ORAL) Take 1 tablet by mouth once daily. Active Iron 100 Plus (4 sources) Start: 07-21-2024 Iron 100 Plus Oral, qDay, 0 Refill(s) Start Date: 07/21/24 Status: Ordered Repeat number: 1 Start: 07-20-2024 Iron 100 Plus Oral, qDay, 0 Refill(s) Start Date: 07/20/24 Status: Ordered Repeat number: 1 lisinopril 10 mg oral tablet (3 sources) Angiotensin Converting Enzyme Inhibitor Start: 08-27-2024 take 1 tablet by mouth once daily lisinopril (ZESTRIL) 10 mg tablet Take 10 mg by mouth once daily. 08/27/2024 Active metroNIDAZOLE 500 mg oral tablet (9 sources) Nitroimidazole Antimicrobial Start: 07-21-2024 End: 07-22-2024 metroNIDAZOLE 500 mg oral tablet Dose : 1,000 mg = 2 tab(s), Oral, TID, Start day before surgery-1st dose noon/2nd dose 1pm /3rd dose 8pm. Follow each dose with glass of water., X 1 day(s), # 6 tab(s), 0 Refill(s), 07/22/24 3:20:00 PM EDT, Pharmacy: [facility] #[id number], 177.8, cm, 07/21/24 14:48:00 EDT, Height, 78, kg, 07/21/24 14:48:00 EDT, Dosing Weight Start Date: 07/21/24 Stop Date: 07/22/24 Status: Ordered Quantity: 6.0 Unit: tab(s) Repeat number: 1 Start: 03-07-2015 End: 03-09-2015 take 1 tablet by mouth every six hours Metronidazole 500 MG tablet Discontinued 500 mg PO EVERY 6 HOURS 40 March 07, 2015 1:00am March 09, 2015 5:52pm multivitamin (20 sources) Start: 04-30-2014 take 1 tablet by steven th once daily Multivitamin Dose = 1 tab(s), Oral, Daily, 0 Refill(s) Start Date: 04/30/14 Status: Ordered Repeat number: 1 MULTIVITAMIN (Or al Liquid) 1 QD for 0 days Refills: 0 Ordered: 08-Jun-2022 Yosef ANGULO, Kayela Active MULTIVITAMIN (Or al Liquid) 1 QD for 0 days Refills: 0 Ordered: 07-Jun-2021 Pattie ANGULO, Vanita Active MULTIVITAMIN (Or al Liquid) 1 QD for 0 days Refills: 0 Ordered: 12-Dec-2020 Alyssa CONTRERASN, Lou Active MULTIVITAMIN (Or al Liquid) 1 QD for 0 days Refills: 0 Ordered: 09-Mar-2020 Fam CONTRERASN, Barb Active MULTIVITAMIN (Or al Liquid) 1 QD for 0 days Refills: 0 Ordered: 18-Feb-2020 Fam CLINICAL DIRECTOR, Barb Active MULTIVITAMIN (Or al Liquid) 1 QD for 0 days Refills: 0 Ordered: 24-Sep-2018 Pattie LANDFILL ATTENDANT, Vanita Active MULTIVITAMIN (Or al Liquid) 1 QD for 0 days Refills: 0 Ordered: 24-Sep-2018 Julioius , Vanita Active MULTIVITAMIN (Or al Liquid) 1 QD for 0 days Refills: 0 Ordered: 09-Jul-2018 George Portillo Active MULTIVITAMIN (Or al Liquid) 1 QD for 0 days Refills: 0 Ordered: 18-Nov-2017 Sandrita Smith LPN Active multivitamin tablet (13 sources) take 1 tablet by mouth once daily multivitamin tablet Take 1 tablet by mouth once daily. Active Multivitamin With Folic Acid (Thera) 1 TABLET tablet (8 sources) Start: 01-24-2015 take 1 tablet by mouth once daily Start: 01-24-2015 take 1 tablet by steven th once daily Multivitamin With Folic Acid (Thera) 1 TABLET tablet Active 1 {tbl} PO DAILY January 24, 2015 12:00am Start: 01-24-2015 take 1 tablet by steven th once daily Multivitamin With Folic Acid (Thera) 1 TABLET tablet Active 1 TABLET PO DAILY January 23, 2015 11:00pm Start: 01-24-2015 take 1 tablet by steven th once daily Multivitamin With Folic Acid (Thera) 1 TABLET tablet Active 1 TABLET PO DAILY January 24, 2015 12:00am mupirocin 0.02 mg/mg topical ointment (1 source) RNA Synthetase Inhibitor Antibacterial Start: 08-05-2024 mupirocin 2% topical ointment Apply 1 rashaun, Topical, BID, Bilateral intranasal application twice daily x 5 days pre-surgery &/or as many days pre-surgery as possible., Apply to: nostril, each, # 22 gram(s), 0 Refill(s), Pharmacy: [facility] #[id number], Ointment, 177, cm, 08/05/24 14:13:00 EDT, Height, 79.2, kg, 08/05/24 14:13:00 EDT, Dosing Weight Start Date: 08/05/24 Status: Ordered Quantity: 22.0 Unit: g Repeat number: 1 neomycin sulfate 500 mg oral tablet (1 source) Aminoglycoside Antibacterial Start: 07-21-2024 End: 07-22-2024 neomycin 500 mg oral tablet Dose : 1,000 mg = 2 tab(s), Oral, TID, Start day before surgery-1st dose noon/2nd dose 1pm /3rd dose 8pm. Follow each dose with glass of water., X 1 day(s), # 6 tab(s), 0 Refill(s), 07/22/24 3:20:00 PM EDT, [facility]acy: [facility] #[id number], 177.8, cm, 07/21/24 14:48:00 EDT, Height, 78, kg, 07/21/24 14:48:00 EDT, Dosing Weight Start Date: 07/21/24 Stop Date: 07/22/24 Status: Ordered Quantity: 6.0 Unit: tab(s) Repeat number: 1 OTC PRODUCT (13 sources) take 1 tablet by mouth once daily OTC PRODUCT Standard Process Prosymbiotic: Take one tablet by mouth once daily. Active oxyCODONE hydrochloride 5 mg oral tablet (1 source) Opioid Agonist Start: 09-01-2024 End: 09-04-2024 oxyCODONE 5 mg oral tablet ( IMMEDIATE release ) Dose : 5 mg = 1 tab(s), Oral, q6h, PRN for pain, X 3 day(s), # 12 tab(s), 0 Refill(s), 09/04/24 11:33:00 AM EDT, Pharmacy: [facility] #[id number], Acute postoperative pain, 177.8, cm, 08/26/24 12:31:00 EDT, Height, 74.3, kg, 08/26/24 12:31:00 EDT, Dosing Weight Start Date: 09/01/24 Stop Date: 09/04/24 Status: Ordered Quantity: 12.0 Unit: tab(s) Repeat number: 1 Indications: Other acute postprocedural pain; SUPREP magnesium sulfate/potassium sulfate/sodium sulfate 1.6 g-3.13 g-17.5 g/177 mL oral liquid (7 sources) Start: 07-21-2024 SUPREP magnesium sulfate/potassium sulfate/sodium sulfate 1.6 g-3.13 g-17.5 g/177 mL oral liquid as directed, Oral, AsDirected, PRN bowel preparation, as directed, instructions given by office, # 354 mL, 0 Refill(s), Pharmacy: [facility] #[id number], 177.8, cm, 07/21/24 14:48:00 EDT, Height, kg, 07/21/24 14:48:00 EDT, Dosing Weight Start Date: 07/21/24 Status: Ordered Quantity: 354.0 Unit: mL Repeat number: 1 Start: 07-21-2024 SUPREP magnesi um sulfate/potassium sulfate/sodium sulfate 1.6 g-3.13 g-17.5 g/177 mL oral liquid as directed, Oral, AsDirected, PRN bowel preparation, as directed, instructions given by office, # 354 mL, 0 Refill(s), Pharmacy: [facility] #[id number], 177.8, cm, 07/21/24 14:48:00 EDT, Height, kg, 07/21/24 14:48:00 EDT, Dosing Weight Start Date: 07/21/24 Status: Ordered Quantity: 354.0 Unit: mL Repeat number: 1 tamsulosin hydrochloride 0.4 mg oral capsule (20 sources) alpha-Adrenergic Galen Start: 04-04-2015 take 1 capsule by mouth at bedtime traMADol hydrochloride 50 mg oral tablet (5 sources) Opioid Agonist Start: 02-13-2023 take 1 tablet by mouth every six hours as needed for pain Vitamin C 500 mg oral tablet (5 sources) Start: 07-20-2024 Vitamin C 500 mg oral tablet Dose : 500 mg = 1 tab(s), Oral, qDay, # 30 tab(s), 0 Refill(s) Start Date: 07/20/24 Status: Ordered Quantity: 30.0 Unit: tab(s) Repeat number: 1 Completed/Discontinued Medications Medication Drug Class(es) Dates Sig (Normalized) Sig (Original) acetaminophen 325 mg oral tablet (20 sources) End: 11-15-2014 take 2 tablets by mouth every six hours as needed TYLENOL, 325MG (Oral Tablet) 2 tabs Q 6 hrs prn for 0 days Refills: 0 Ordered: 15-Nov-2014 Rach Pineda LPN End : 15-Nov-2014 Discontinued 24 hr alfuzosin hydrochloride 10 mg extended release oral tablet (20 sources) alpha-Adrenergic Galen Start: 08-21-2007 End: 12-25-2007 take 1 tablet by mouth once daily UROXATRAL, 10MG (Oral Tablet Extended Release 24 Hour) 1 (one) Tablet ER 24HR Daily for 0 days Quantity: 30 {Tablet_ER_24HR} Refills: 4 Ordered: 21-Aug-2007 Sandrita Smith RN Start : 21-Aug-2007 End : 25-Dec-2007 Inactive aspirin 81 mg delayed release oral tablet (20 sources) Platelet Aggregation Inhibitor, Nonsteroidal Anti-inflammatory Drug Start: 02-27-2017 End: 03-29-2017 take 1 tablet by mouth every other day Aspirin Adult Low Strength 81 MG Oral Tablet Delayed Release 1 (one) Tablet DR QOD for 30 days Quantity: 30 {Tablet} Refills: 0 Ordered: 27-Feb-2017 Kenny BERKLEYAlicia Start : 27-Feb-2017 End : 29-Mar-2017 Inactive Start: 01-24-2015 take 1 tablet by steven th every other day Start: 01-24-2015 take 81 mg by mouth once daily Aspirin Active 81 MG PO DAILY@0800 January 24, 2015 12:00am Comment on above: Valentina Valentina - changed to q od due to abn bruising clarithromycin 500 mg oral tablet (20 sources) Macrolide Antimicrobial Start: 7 End: 7 take 1 tablet by mouth twice daily Biaxin 500 MG Oral Tablet 1 Tablet bid for 0 days Quantity: 20 {Tablet} Refills: 0 Ordered: 27-Feb-2017 Rach Pineda LPN Start : 27-Apr-2016 End : 27-Feb-2017 Inactive Start: 06-29-2011 End: 07-13-2011 take 2 tablets by mouth once daily BIAXIN XL PAC, 500MG (Oral Tablet Extended Release 24 Hour) 2 (two) Tablet ER 24HR daily for 14 days Quantity: 28 {Tablet_ER_24HR} Refills: 0 Ordered: 29-Jun-2011 Kenny Alicia Start : 29-Jun-2011 End : 13-Jul-2011 Inactive Start: 06-29-2011 End: 07-13-2011 take 2 tablets by mouth once daily BIAXIN XL PAC, 500MG (Oral Tablet Extended Release 24 Hour) 2 (two) Tablet ER 24HR daily for 14 days Quantity: 28 {Tablet_ER_24HR} Refills: 0 Ordered: 29-Jun-2011 Lizroseann GOODENAlicia Start : 29-Jun-2011 End : 13-Jul-2011 Inactive daily defense (5 sources) Start: 07-20-2024 daily defense daily defense, 1 cap(s), Oral, qDay, 0 Refill(s), 81.4 Start Date: 07/20/24 Status: Ordered Repeat number: 1 Start: 07-20-2024 daily defense daily defense, 0 Refill(s), 81.4 Start Date: 07/20/24 Status: Ordered Repeat number: 1 doxycycline hyclate 100 mg oral capsule (5 sources) Tetracycline-class Drug Start: 07-20-2024 End: 07-26-2024 doxycycline hyclate 100 mg oral capsule Dose : 100 mg = 1 cap(s), Oral, BID, 0 Refill(s), 81.4 Start Date: 07/20/24 Stop Date: 07/26/24 Status: Ordered Repeat number: 1 Start: 01-14-2023 End: 01-24-2023 take 1 capsule by mouth twice daily doxycycline hyclate 100 mg oral capsule 1 Capsule 2 times per day for 10 days Quantity: 20 {Capsule} Refills: 0 Ordered: 14-Jan-2023 Flavia Jacome CNP Start : 14-Jan-2023 End : 24-Jan-2023 Inactive 0.4 ml enoxaparin sodium 100 mg/ml prefilled syringe (2 sources) Low Molecular Weight Heparin Start: 09-01-2024 End: 09-23-2024 inject 0.4 mL by subcutaneous injection once daily Lovenox 40 mg/0.4 mL injectable solution Dose : 40 mg = 0.4 mL, Subcutaneous, qDay, X 22 day(s), # 8.8 mL, 0 Refill(s), 09/23/24 12:11:00 PM EDT, Pharmacy: [facility] #[id number], 177.8, cm, 08/26/24 12:31:00 EDT, Height, kg, 08/26/24 12:31:00 EDT, Dosing Weight Start Date: 09/01/24 Stop Date: 09/23/24 Status: Ordered Quantity: 8.8 Unit: mL Repeat number: 1 escitalopram 10 mg oral tablet (20 sources) Serotonin Reuptake Inhibitor Start: 11-27-2007 End: 12-25-2007 take 0.5 tablet by mouth once daily LEXAPRO, 10MG (Oral Tablet) 1/2 Tablet Daily for 0 days Refills: 0 Ordered: 27-Nov-2007 Sandrita Smith RN Start : 27-Nov-2007 End : 25-Dec-2007 Inactive gut nicole complex (19 sources) gut nicole comple x Active hydroCHLOROthiazide 25 mg oral tablet (20 sources) Thiazide Diuretic Start: 05-22-2017 End: 05-22-2017 take 1 tablet by mouth once daily HydroCHLOROthiazide 25 MG Oral Tablet 1 (one) Tablet qd for 0 days Quantity: 30 {Tablet} Refills: 1 Ordered: 22-May-2017 Rosita Capone DOon DO Rosita Start : 22-May-2017 End : 22-May-2017 Discontinued hydrocortisone 25 mg/ml topical cream (20 sources) Corticosteroid Hydrocortisone 2 .5 % External Cream appy daily daily (2.5 %) Inactive 10 ml iron sucrose 20 mg/ml injection (5 sources) Parenteral Iron Replacement Start: 06-05-2024 End: 06-05-2024 200 mg, INTRAVENOUS, ONCE, 1 dose, On Sat06/05/24 at 1430, Please conduct a 30 minute post dose observation. Start: 06-03-2024 End: 06-03-2024 200 mg, INTRAVENOUS, ONCE, 1 dose, On Sat06/03/24 at 0930, Please conduct a 30 minute post dose observation. Start: 06-01-2024 End: 06-01-2024 200 mg, INTRAVENOUS, ONCE, 1 dose, On Sat06/01/24 at 0830, Please conduct a 30 minute post dose observation. Start: 05-28-2024 End: 05-28-2024 200 mg, INTRAVENOUS, ONCE, 1 dose, On Sat05/28/24 at 1530, Please conduct a 30 minute post dose observation. Start: 05-26-2024 End: 05-26-2024 200 mg, INTRAVENOUS, ONCE, 1 dose, On Sat05/26/24 at 1330, Please conduct a 30 minute post dose observation. meclizine hydrochloride 25 mg oral tablet (20 sources) Antiemetic Start: 09-03-2022 End: 10-03-2022 take 1 tablet by mouth every eight hours meclizine 25 mg oral tablet 1 (one) tablet every eight hours, as needed for 30 days Quantity: 30 {Tablet} Refills: 0 Ordered: 03-Sep-2022 Max Trinh LPN Start : 03-Sep-2022 End : 03-Oct-2022 Inactive Comments: Medication taken as needed. Start: 09-24-2018 End: 11-20-2018 Meclizine HCl 25 MG Oral Tab let 1 (one) Tablet q6-8hrs prn for diziness for 0 days Quantity: 30 {Tablet} Refills: 0 Ordered: 20-Nov-2018 Ninoska Law Start : 24-Sep-2018 End : 20-Nov-2018 Inactive Start: 06-15-2014 End: 11-15-2014 MECLIZINE HCL, 25MG (Oral Ta blet) 1 (one) Tablet q6-8hrs prn for diziness for 0 days Quantity: 30 {Tablet} Refills: 0 Ordered: 15-Nov-2014 Rach Pineda LPN Start : 15-Jun-2014 End : 15-Nov-2014 Discontinued Comment on above: Medication taken as needed. mometasone furoate 0.05 mg/actuat metered dose nasal spray (20 sources) Corticosteroid Start: 06-16-19 End: 11-16-19 15 NASONEX, 50MCG/ACT (Nasal Suspension) 2 (two) Puff daily for 0 days Quantity: 1 {Bottle} Refills: 0 Ordered: 15-Nov-2014 Rach Pineda LPN Start : 15-Jun-2014 End : 15-Nov-2014 Discontinued ondansetron 4 mg disintegrating oral tablet (8 sources) Serotonin-3 Receptor Antagonist Start: 03-07-20 End: 03-09-20 15 take 1 tablet by mouth every eight hours as needed for nausea Ondansetron 4 MG tablet Discontinued 4 mg PO EVERY 8 HOURS NEEDED as needed for Nausea March 07, 2015 1:00am March 09, 2015 5:53pm oseltamivir 75 mg oral capsule (20 sources) Neuraminidase Inhibitor Start: 05-06-19 13 End: 05-16-19 13 take 1 capsule by mouth once daily TAMIFLU, 75MG (Oral Capsule) 1 Capsule daily for 10 days Quantity: 10 {Capsule} Refills: 0 Ordered: 06-May-2012 CheliAlicia nolasoc Start : 06-May-2012 End : 16-May-2012 Inactive promethazine hydrochloride 25 mg oral tablet (20 sources) Phenothiazine Start: 06-16-19 15 End: 11-16-19 15 take 1 tablet by mouth every eight hours as needed for nausea PROMETHAZINE HCL, 25MG (Oral Tablet) 1 (one) Tablet q8hrs prn for nausea for 0 days Quantity: 30 {Tablet} Refills: 0 Ordered: 15-Nov-2014 Rach Pineda LPN Start : 15-Jun-2014 End : 15-Nov-2014 Discontinued prosymbiotic (5 sources) Start: 07-21-19 25 prosymbiotic prosymbiotic, 1 cap(s), Oral, qDay, 0 Refill(s), 81.4 Start Date: 07/20/24 Status: Ordered Repeat number: 1 Start: 07-20-2024 prosymbiotic p rosymbiotic, 0 Refill(s), 81.4 Start Date: 07/20/24 Status: Ordered Repeat number: 1 Problems Active Problems Problem Classification Problem Date Documented Da te Episodic/Chronic Abdominal hernia (16 sources) Umbilical hernia; Translations: [Umbilical hernia without obstruction and without gangrene] 10-05-2022 Episodic Allergic reactions (20 sources) Allergic reaction; Translations: [Allergic reaction, sequela] 12-16-2017 Episodic Comment on above: pneumonia vaccine-- cant do antihistamine bc of urinary retention , pred but dont like side effect, and not infected right now to jump on antibiotic with h/o c diff Anxiety disorders (20 sources) Anxiety; Translations: [Anxiety] 12-16-2017 Chronic Cancer of colon (4 sources) Malignant tumor of colon; Translations: [Malignant neoplasm of colon, unspecified] Onset: 5 Chronic Conditions associated with dizziness or vertigo (20 sources) Vertigo; Translations: [Benign paroxysmal positional vertigo] Resolved: 3 03-16-2015 Episodic Coronary atherosclerosis and other heart disease (20 sources) Coronary atherosclerosis and other heart disease Crushing injury or internal injury (8 sources) Crushing injury of finger; Translations: [Crushing injury of unspecified finger(s), initial encounter] 12-27-2021 Episodic Deficiency and other anemia (1 source) Iron deficiency anemia; Translations: [Iron deficiency anemia, unspecified] 05-25-2024 Episodic Diseases of white blood cells (20 sources) Leukocytosis; Translations: [Leukocytosis, unspecified type] Resolved: 7 03-13-2017 Chronic Disorders of lipid metabolism (20 sources) Raised low density lipoprotein cholesterol; Translations: [Elevated LDL cholesterol level] 12-13-2020 Chronic Esophageal disorders (20 sources) Gastroesophageal reflux disease; Translations: [GERD (gastroesophageal reflux disease)] Onset: 5 12-16-2017 Chronic Genitourinary symptoms and ill-defined conditions (20 sources) Microscopic hematuria; Translations: [Increased frequency of urination] Resolved: 7 03-13-2017 Episodic Comment on above: urine on 03-21 and c ulture neg Heart valve disorders (20 sources) Mitral valve prolapse; Translations: [Mitral valve prolapse] 12-16-2017 Chronic Comment on above: clinically stable Heart valve disorders (20 sources) Heart murmur; Translations: [Heart murmur] 12-16-2017 Episodic Hyperplasia of prostate (20 sources) Benign prostatic hyperplasia; Translations: [Benign prostatic hypertrophy with outflow obstruction] Onset: 5 12-16-2017 Chronic Immunizations and screening for infectious disease (20 sources) Need for prophylactic vaccination and inoculation against influenza; Translations: [Contact with and (suspected) exposure to other viral communicable diseases] Resolved: 0 12-16-2017 Episodic Comment on above: doing well. Symptoms began Dec 01, 2020 Day #13 Intestinal infection (20 sources) Clostridium difficile diarrhea; Translations: [C. difficile diarrhea] Resolved: 6 07-09-2018 Episodic Comment on above: finished vanc 2days ago Intestinal obstruction without hernia (2 sources) Intestinal obstruction; Translations: [Ileus, unspecified] Onset: 5 Episodic Nausea and vomiting (20 sources) Nausea and vomiting; Translations: [Nausea and/or vomiting] Resolved: 5 03-16-2015 Episodic Open wounds of extremities (8 sources) Laceration of finger; Translations: [Laceration without foreign body of unspecified finger without damage to nail, initial encounter] 12-27-2021 Episodic Osteoarthritis (20 sources) Arthritis; Translations: [Arthritis] 12-16-2017 Chronic Other and unspecified benign neoplasm (20 sources) Benign neoplasm of colon; Translations: [Benign neoplasm of colon] 12-16-2017 Episodic Comment on above: Sessile polyp of jelly cending colon 12-18-07 Other circulatory disease (20 sources) Elevated blood-pressure reading without diagnosis of hypertension; Translations: [Elevated blood pressure (not hypertension)] Resolved: 8 11-18-2017 Episodic Other circulatory disease (16 sources) Elevated blood pressure; Translations: [Elevated blood pressure reading] 07-16-2022 Episodic Comment on above: will send bpd in 1-2 mo and if goood will scan into chart -- if elevate he knows to set up appt to treat Other connective tissue disease (20 sources) Pain in upper limb Episodic Other connective tissue disease (6 sources) Swelling of hand; Translations: [Swelling of left hand] 01-14-2023 Episodic Other diseases of kidney and ureters (1 source) Cyst of kidney, acquired; Translations: [Cyst of kidney, acquired] Onset: 5 Episodic Other ear and sense organ disorders (20 sources) Impacted cerumen; Translations: [Cerumen impaction] Onset: 1 Resolved: 4 01-04-2015 Episodic Other ear and sense organ disorders (20 sources) Tinnitus, bilateral; Translations: [Bilateral tinnitus] 09-24-2018 Episodic Comment on above: ? related to ear wax vs other Other ear and sense organ disorders (20 sources) Impacted cerumen, bilateral; Translations: [Impacted cerumen of bilateral ears] Resolved: 3 09-24-2018 Episodic Other gastrointestinal disorders (20 sources) Other fecal abnormalities; Translations: [Stool DNA-based colorectal cancer screening positive] 02-07-2018 Episodic Other infections (20 sources) H/O: infectious disease; Translations: [History of Clostridium difficile] 12-16-2017 Episodic Comment on above: finished gut recondi tioning in may and feeling Other infections; including parasitic (20 sources) Personal history of other infectious and parasitic diseases; Translations: [History of Clostridium difficile intestinal infection] 11-20-2018 Episodic Other lower respiratory disease (2 sources) Multiple nodules of lung; Translations: [Other nonspecific abnormal finding of lung field] 09-28-2024 Episodic Other lower respiratory disease (1 source) Other nonspecific abnormal finding of lung field; Translations: [Lung nodules] Onset: 5 Episodic Other nervous system disorders (1 source) Postoperative pain ; Translations: [Other acute postprocedural pain] Onset: 5 Episodic Other nervous system disorders (2 sources) Other acute postprocedural pain; Translations: [Other acute postprocedural pain] Onset: 5 Episodic Other non-traumatic joint disorders (20 sources) Knee pain; Translations: [Pain in right knee] Resolved: 3 12-16-2017 Episodic Comment on above: dx partial tear of sanjay rogersus on both knees now -- but did therapy and buying time as long as can do his activities and [id number] years runningdoing therapy and has appt with ortho-- already getting better Other non-traumatic joint disorders (20 sources) Shoulder pain; Translations: [Shoulder pain] Resolved: 9 03-01-2014 Episodic Comment on above: REFER TO ORTHO Other non-traumatic joint disorders (16 sources) Hip pain; Translations: [Chronic pain of right hip] 07-16-2022 Episodic Other nutritional; endocrine; and metabolic disorders (20 sources) Body mass index 25-29 - overweight; Translations: [BMI 26.0-26.9,adult] Resolved: 9 12-16-2017 Chronic Other nutritional; endocrine; and metabolic disorders (14 sources) Raised low density lipoprotein cholesterol; Translations: [Elevated LDL cholesterol level] 12-16-2017 Episodic Other nutritional; endocrine; and metabolic disorders (20 sources) Body mass index 25-29 - overweight; Translations: [BMI 26.0-26.9,adult] Resolved: 9 12-13-2020 Episodic Other nutritional; endocrine; and metabolic disorders (20 sources) Overweight in adulthood with body mass index of 25 or more but less than 30; Translations: [BMI 26.0-26.9,adult] Resolved: 9 06-07-2021 Episodic Other skin disorders (20 sources) Actinic keratosis; Translations: [Actinic keratosis] 12-16-2017 Episodic Other skin disorders (20 sources) Nail deformity; Translations: [Nail deformity] Resolved: 3 12-16-2017 Episodic Comment on above: spray bandaid on monica l Other skin disorders (20 sources) Eruption; Translations: [Rash of hands] Resolved: 6 01-12-2016 Episodic Comment on above: ? related to latex g love or dry skin eczema Other upper respiratory disease (20 sources) Nasal sinus problem; Translations: [Sinus pressure] Resolved: 3 09-24-2018 Episodic Comment on above: use decog for sinus pressure ( h/o c diff so no antibiotic w/o more evidence of infection)- watch bp Other upper respiratory infections (20 sources) Chronic sinusitis, unspecified; Translations: [Bacterial sinusitis] Resolved: 7 02-27-2017 Chronic Other upper respiratory infections (20 sources) Acute sinusitis; Translations: [Sinusitis, acute] Resolved: 5 03-16-2015 Episodic Residual codes; unclassified (20 sources) Non-smoker; Translations: [Nonsmoker] 12-13-2020 Episodic Residual codes; unclassified (20 sources) Body mass index 20-24 - normal; Translations: [BMI 24.0-24.9, adult] Resolved: 3 06-07-2021 Episodic Residual codes; unclassified (4 sources) History of repair of umbilical hernia; Translations: [Other specified postprocedural states] 02-27-2023 Episodic Comment on above: With mesh Residual codes; unclassified (2 sources) Other specified postprocedural states; Translations: [Personal history of surgery to other organs] 02-27-2023 Episodic Skin and subcutaneous tissue infections (20 sources) Cellulitis of arm; Translations: [Cellulitis of upper limb] Resolved: 9 03-01-2014 Episodic Comment on above: resolved Superficial injury; contusion (20 sources) Infected insect bite of upper limb; Translations: [Abrasion of hand] Resolved: 3 05-12-2015 Episodic Syncope (8 sources) Syncope; Translations: [Syncope and collapse] 01-26-2015 Episodic Unclassified (20 sources) Unclassified (20 sources) BMI 26.0-26.9,adult Unclassified (20 sources) Nonsmoker; Translations: [Non-smoker] 12-16-2017 Unclassified (20 sources) Elevated blood pressure (not hypertension) Unclassified (20 sources) Other microscopic hematuria Unclassified (20 sources) Body mass index 25.0-25.9, adult Unclassified (20 sources) BPH associated with nocturia Unclassified (20 sources) SCREENING FOR CANCER OF THE PROSTATE (V76.44) Unclassified (20 sources) Cerumen impaction (380.4) Unclassified (20 sources) Elevated Blood Pressure without diagnosis of Hypertension (796.2) Unclassified (20 sources) Elevated LDL cholesterol level Unclassified (1 source) Cough, unspecified; Translations: [Cough, unspecified] Onset: Past or Other Problems Problem Classification Problem Date Documented Date Episodic/Chronic Conditions associated with dizziness or vertigo (20 sources) Conditions associated with dizziness or vertigo Deficiency and other anemia (20 sources) Iron deficiency anemia secondary to inadequate dietary iron intake; Translations: [Other iron deficiency anemias] Onset: 05-22-2024 05-22-2024 Episodic Deficiency and other anemia (1 source) Other iron deficiency anemias; Translations: [Iron deficiency anemia secondary to inadequate dietary iron intake] Onset: 05-22-2024 Episodic Deficiency and other anemia (1 source) Iron deficiency anemia, unspecified; Translations: [Iron deficiency anemia, unspecified iron deficiency anemia type] Onset: 06-03-2024 Episodic Fracture of upper limb (20 sources) Fracture of clavicle; Translations: [Fracture Of Clavicle] Resolved: 08-19-2008 03-01-2014 Episodic Comment on above: HX of Hemorrhoids (20 sources) Hemorrhoids; Translations: [Hemorrhoids] Resolved: 08-19-2008 01-11-2015 Episodic Influenza (19 sources) Influenza Intestinal infection (2 sources) Enterocolitis due to Clostridium difficile, not specified as recurrent; Translations: [C. difficile diarrhea] Resolved: 05-16-2015 05-16-2015 Comment on above: finished vanc 2days ago Nonspecific chest pain (20 sources) Chest pain; Translations: [Chest pain, unspecified] Resolved: 08-19-2008 03-11-2015 Episodic Comment on above: Rib pain Other connective tissue disease (1 source) Pain in left arm; Translations: [Pain in left arm] Onset: 07-18-2024 Episodic Other ear and sense organ disorders (12 sources) Impacted cerumen of bilateral ears; Translations: [Bilateral impacted cerumen] 11-20-2018 Other non-traumatic joint disorders (12 sources) Pain in right knee; Translations: [Right knee pain] 11-20-2018 Comment on above: dx partial tear of m eniscus on both knees now -- but did therapy and buying time as long as can do his activities and [id number] years runningdoing therapy and has appt with ortho-- already getting better Other screening for suspected conditions (not mental disorders or infectious disease) (20 sources) Stool DNA-based colorectal cancer screening positive; Translations: [Screening status] Onset: 06-22-2024 Resolved: 03-16-2015 11-20-2018 Episodic Comment on above: last scope 03/[address] lopez last scope 03/18- ab normal cologard so thats why did scope see dr gelacio brown one may 2021 last scope 03/18- ab normal cologard-- good scope q [address] gelacio brown one may 2022- dr lopez Pneumonia (14 sources) Pneumonia Unclassified (14 sources) Needs influenza immunization; Translations: [Need for prophylactic vaccination and inoculation against influenza] Resolved: 04-04-2009 01-04-2015 Episodic Unclassified (20 sources) C. difficile diarrhea Unclassified (20 sources) Leukocytosis, unspecified type Unclassified (20 sources) Encounter for screening for malignant neoplasm of prostate (Renamed from Screening for prostate cancer); Translations: [Screening status] 12-16-2017 Comment on above: did ee dr christiano stuart Unclassified (20 sources) Encounter for screening for malignant neoplasm of colon (Renamed from Special screening for malignant neoplasms, colon); Translations: [Screening status] 12-16-2017 Unclassified (20 sources) Annual Medicare Phyiscal WITHOUT abnormal findings (Renamed from Encounter for general adult medical examination without abnormal findings); Translations: [Patient encounter status] 12-16-2017 Unclassified (19 sources) Sinusitis, bacterial Unclassified (20 sources) Annual physical exam; Translations: [Patient encounter status] 12-16-2017 Unclassified (20 sources) History of Clostridium difficile Unclassified (19 sources) Rash of hands Unclassified (19 sources) Nail deformity Unclassified (19 sources) Nausea and/or vomiting Unclassified (19 sources) Allergic reaction, sequela Unclassified (20 sources) SINUSITIS, ACUTE NOS (461.9) Unclassified (19 sources) Positive colorectal cancer screening using Cologuard test Unclassified (20 sources) Screening status; Translations: [Screening for prostate cancer] Resolved: 03-16-2015 03-16-2015 Comment on above: did 1/18see dr christiano stuart last scope 03/[address] lopez Unclassified (20 sources) Patient encounter status; Translations: [Physical exam] Resolved: 08-19-2008 02-18-2015 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 Unclassified (20 sources) PAIN IN SHOULDER Resolved: 04-04-2009 03-01-2014 Comment on above: Probable rotator cuf f Unclassified (19 sources) Insect bite, nonvenomous, of elbow, forearm, and wrist, infected (913.5) Unclassified (19 sources) Work Physical (V70.3) Unclassified (13 sources) Non-smoker; Translations: [Nonsmoker] 09-24-2018 Unclassified (20 sources) BMI 25.0-25.9,adult Unclassified (16 sources) Sinus pressure Unclassified (18 sources) Bilateral impacted cerumen Unclassified (15 sources) Abrasion of left hand, initial encounter Unclassified (15 sources) History of Clostridioides difficile colitis Unclassified (20 sources) Exposure to SARS virus Unclassified (5 sources) BPV (benign positional vertigo), bilateral Unclassified (4 sources) BMI 24.0-24.9, adult Unclassified (4 sources) Encounter for hepatitis C virus screening test for high risk patient Viral infection (18 sources) Disease caused by 2019-nCoV Results Test Name Value Interpretation Reference Range Facility [facility] 025 Kidney and Bladder [facility] Imaging Services [address] [place] [address] [id number] Kidney and Bladder MR#: [id number] Acct: [id number] Name: RADHA MENG Rep #: [id number] : 1950 M 74 From: Jonnathan abdalla MD PCP: Dr. Rosita Capone DO Status: REG CLI Study: Kidney and Bladder Date of Exam: 12/07/24 Exam# [id number] Ordering Dr: Rosita Capone DO PROCEDURE: KIDNEY AND BLADDER 12/07/2024 REASON FOR EXAM: COMPLETE ULTRASOUND OF KIDNEY; RIGHT EVAL COMPLEX R RENAL CYST SE TECHNIQUE: Procedure Code: USKI Modality: US Procedure: KIDNEY AND BLADDER COMPARISON: None FINDINGS: Kidneys: Normal renal sizes, parenchymal thicknesses, and echotextures. [place]: No evidence of hydronephrosis. Cysts or Masses: There is a 1.4 cm x 1 cm x 1.2 cm cyst in the right kidney. 2.8 cm cyst in the left kidney. Other: Prostate volume measures 57.7 mL. RIGHT Kidney Size: 10.6 cm x 6.1 cm x 4.6 cm Volume: 155.16 mL Cortical Thickness (if discernible): 16 mm (>6mm is normal) LEFT Kidney Size: 14.7 cm x 6.3 cm x 5.6 cm Volume: 217.83 mL Cortical Thickness (if discernible): 17 mm (>6mm is normal) There is a 1.7 cm x 2 cm x 0.8 cm left intrarenal calculus. US/Kidney and Bladder IMPRESSION: Bilateral renal cysts. 1.7 cm 2 cm 0.8 cm calculus in the left kidney. Reading Location: [id number] CC: Dr. 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 Here for follow up, feels well post op. Resection occurred 08-26-24, Dr Jonathan Valdes Preop staging negative other than chest CT showed 2 mm nodule pT3N0 G2, negative for LVI, perineural invasion, no ssx obstruction. 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 No role for adjuvant chemotherapy. 2 mm lung nodule. RECOMMENDATION/PLAN: 1. Plan surveillance with serial CEA and hepatic panel, yearly CT CAP 2. [place] term CT chest to follow up on lung nodule. 3. I will see back after labs and chest CT in 4 months or so. Written and verbal health teaching given to patient, patient verbalizes understanding and agrees with treatment plan. PAST MEDICAL HISTORY Diagnosis Date Arthritis BPH (benign prostatic hyperplasia) Colon cancer (HCC) 06/2024 Heart murmur Iron deficiency anemia PAST SURGICAL HISTORY Procedure Laterality Date COLONOSCOPY SCREENING CYST/MOLE REMOVAL left hand middle finger HERNIA REPAIR HX PAST SURGICAL HISTORY OF Cyst removed from left middle finger FAMILY HISTORY Problem Relation Age of Onset Heart Mother Stroke Mother Arthritis Mother Heart Father Social History Tobacco Use Smoking status: Never Smokeless tobacco: Never Vaping Use Vaping status: Never Used Substance Use Topics Alcohol use: Not Currently Drug use: Never ALLERGIES: ALLERGIES Allergen Reactions Adhesive Tape-Silic* Rash Amoxicillin Rash CURRENT OUTPATIENT MEDICATIONS: lisinopril (ZESTRIL) 10 mg tablet Take 10 mg by mouth once daily. tamsulosin (FLOMAX) 0.4 mg Take 0.4 mg by mouth once daily. finasteride (PROSCAR) 5 mg tablet Take 5 mg by mouth once daily. glucosamine HCl/chondroitin hall (GLUCOSAMINE-CHONDROITIN ORAL) Take 1 tablet by mouth once daily. multivitamin tablet Take 1 tablet by mouth once daily. fluticasone (FLONASE ALLERGY RELIEF) 50 mcg/actuation nasal spray Use 1 [place] in each nostril once daily as needed. OTC PRODUCT Standard Process Prosymbiotic: Take one tablet by mouth once daily. ascorbic acid, vitamin C, (VITAMIN C) 500 mg tablet Take 500 mg by mouth once daily. ferrous sulfate (IRON, FERROUS SULFATE,) 325 mg (65 mg iron) tablet Take 325 mg by mouth once daily. aspirin, enteric coated (ASPIRIN, ENTERIC COATED) 81 mg EC tablet Take 81 mg by mouth every other day. REVIEW OF SYSTEMS: GENERAL: No fever, night sweats, weight loss or malaise. All other reviewed and negative other than HPI. PHYSICAL EXAMINATION: VITAL SIGNS: BP 108/74 Pulse 80 Temp (Src) 97.4 (Temporal) Ht 5' 9.5" (1.77m) Wt 163 lb 8 oz (74.2kg) SpO2 98% BMI 23.81 kg/(m2). GENERAL APPEARANCE: Well appearing, in no acute distress, alert and oriented x3, well-hydrated, well nourished. I spent a total of 60 minutes on the date of the service which included preparing to see the patient, [id number] patient care, completing clinical documentation, obtaining and/or reviewing separately obtained history, counseling and educating the patient/family/caregiver, ordering medications, tests, or procedures, communicating with other HCPs (not separately reported), independently interpreting results (not separately reported), and communicating results to the patient/family/caregiver. Review of NCCN guidelines, outside records Electronically Signed: Jt Junior MD September 28, 2024 10:32 AM Allergies As of Date: 09/28/2024 Noted Allergy Reaction ADHESIVE TAPE-SILICONES 05/22/2024 2 - Rash AMOXICILLIN 05/22/2024 2 - Rash Date Reviewed: 09/28/2024 Reviewed by: Christina Napier MA - Fully Assessed Reason for Visit: Consult [173] Cmt: Colon Cancer Primary Visit Diagnosis:Lung nodules [R91.8] Other Visit Diagnosis:Malignant neoplasm of transverse colon (HCC) [C18.4] Order(s):CT CHEST WO IVCON [[id number]] Order #: [id number] FUTURE HEPATIC FUNCTION PNL [SQHFP] Order #: [id number] STANDING CARCINOEMBRYONIC ANTIGEN [SQCEA] Order #: [id number] STANDING Follow-up and Disposition History for Encounter Date Provider Department Center 09/28/2024 [id number] JUNIOR [place] Prescriptions as of 09/28/2024 - lisinopril (ZESTRIL) 10 mg tablet Take 10 mg by mouth once daily. - tamsulosin (FLOMAX) 0.4 mg Take 0. (more content not included)... Normal [facility] 09-15-20[facility] -- RADHA MENG ([id number]) 1950 M Date Time Provider Department 09/15/24 SCOOBY CAVAZOS During your visit today, we recorded the following information about you: Glen Wagner, Anaya 09/15/2024 3:21 PM Signed Spouse called stating patient had cancerous tumor removed from colon and Dr. Castillo was to send reports/results. Please advise on follow up appointment. Aundrea Dey LPN 09/15/2024 4:52 PM Signed Referral received was missing information. Additional records requested. MIKE Singleton Melanie, LPN 09/16/2024 11:29 AM Addendum Records received. Red chart given to PSS to schedule. This patient has been seen once by the CLINICAL REVIEWER for MONA. This is a new diagnosis for colon cancer and needs to see a physician. MIKE Singleton Naomi 09/16/2024 12:43 PM Signed Spoke w pt and this scheduled for 09/[address] Junior, first available. Charlie Douglas Allergies As of Date: 09/15/2024 Noted Allergy Reaction ADHESIVE TAPE-SILICONES 05/22/2024 2 - Rash AMOXICILLIN 05/22/2024 2 - Rash Date Reviewed: 06/05/2024 Reviewed by: Suzy Daily, RN - Fully Assessed Reason for Visit: Appointment [186] Prescriptions as of 09/16/2024 - tamsulosin (FLOMAX) 0.4 mg Take 0.4 mg by mouth once daily. - finasteride (PROSCAR) 5 mg tablet Take 5 mg by mouth once daily. - aspirin, enteric coated (ASPIRIN, ENTERIC COATED) 81 mg EC tablet Take 81 mg by mouth every other day. - glucosamine HCl/chondroitin hall (GLUCOSAMINE-CHONDROITIN ORAL) Take 1 tablet by mouth once daily. - multivitamin tablet Take 1 tablet by mouth once daily. - fluticasone (FLONASE ALLERGY RELIEF) 50 mcg/actuation nasal spray Use 1 [place] in each nostril once daily as needed. - OTC PRODUCT Standard Process Prosymbiotic: Take one tablet by mouth once daily. - ascorbic acid, vitamin C, (VITAMIN C) 500 mg tablet Take 500 mg by mouth once daily. - ferrous sulfate (IRON, FERROUS SULFATE,) 325 mg (65 mg iron) tablet Take 325 mg by mouth once daily. Problem List As Of Date 09/15/2024 Noted Resolved Iron deficiency anemia secondary to inadequate *05/22/2024 Encounter Status:Closed by CHARLIE DOUGLAS on 09/16/24 Normal [facility] .Auto Diffon 08-31-2024 Basophil, Absolute 0.1 10 3/mcL Normal 0.0-0.3 [facility] [facility] Comment on above: Performed By: #### B MP, CBC, ADIFF, ANEU, GFR #### [address] [address] Basophils/100 WBC (Bld) 0.6 % Normal 0.0-2.5 [facility] MAIN Comment on above: Performed By: #### B MP, CBC, ADIFF, ANEU, GFR #### [address] [address] Eosinophil, Absolute 0.8 10 3/mcL High 0.0-0.7 [facility] MAIN Comment on above: Performed By: #### B MP, CBC, ADIFF, ANEU, GFR #### [address] [address] Eosinophils/100 WBC (Bld) 8.1 % High 0.0-6.0 [facility] MAIN Comment on above: Performed By: #### B MP, CBC, ADIFF, ANEU, GFR #### [address] [address] Lymphocyte, Absolute 1.5 10 3/mcL Normal 0.9-4.3 [facility] Comment on above: Performed By: #### B MP, CBC, ADIFF, ANEU, GFR #### [address] [address] Lymphocytes/100 WBC (Bld) 14.8 % Low 20.0-40.0 [facility] MAIN Comment on above: Performed By: #### B MP, CBC, ADIFF, ANEU, GFR #### [address] [address] Monocyte, Absolute 1.2 10 3/mcL Normal 0.1-1.4 [facility] MAIN Comment on above: Performed By: #### B MP, CBC, ADIFF, ANEU, GFR #### [address] [address] Monocytes/100 WBC (Bld) 11.5 % Normal 2.0-13.0 [facility] MAIN Comment on above: Performed By: #### B MP, CBC, ADIFF, ANEU, GFR #### [address] [address] Neutrophils/100 WBC (Bld) 65.0 % Normal 50.0-75.0 [facility] MAIN Comment on above: Performed By: #### B MP, CBC, ADIFF, ANEU, GFR #### [address] [address] .GFRon 08-31-2024 Estimated Glomerular Filtration Rate 89 ml/min/1.73sqm Normal [facility] MAIN Comment on above: Result Comment: Stages of Chronic Kidney Disease (CKD) Stage Description eGFR(ml/min/1.73 sq.m.) CKD 1 Normal kidney function or >=90 normal kindney function with possible kidney damage (ex. Proteinuria) CKD 2 Kidney damage with mild loss 60-89 of kidney function CKD 3a Mild to moderate loss of kidney 45-59 function CKD 3b Moderate to severe loss of 30-44 of kindey function CKD 4 Severe loss of kidney function 15-29 CKD 5 Kidney failure <15 Note: (go live 2024) the eGFR calculation was updated to the 2020 CKD-EPI creatinine equation without a race factor to calculate the eGFR results. Performed By: #### B MP, CBC, ADIFF, ANEU, GFR #### [address] [address] .NEUABSon 08-31-2024 Neutrophil, Absolute 6.5 10 3/mcL Normal 2.3-8.1 [facility] Comment on above: Performed By: #### B MP, CBC, ADIFF, ANEU, GFR #### [address] [address] BMPon 08-31-2024 BUN/Creatinine Ratio 14.3 ratio Normal 10.0-22.0 [facility] MAIN Comment on above: Performed By: #### B MP, CBC, ADIFF, ANEU, GFR #### [address] [address] Calcium [Mass/Vol] 9.3 mg/dL Normal 8.7-10.4 [facility] MAIN Comment on above: Performed By: #### B MP, CBC, ADIFF, ANEU, GFR #### [place] [id number] Chloride [Moles/Vol] 101 mmol/L Normal 98-110 [facility] MAIN Comment on above: Performed By: #### B MP, CBC, ADIFF, ANEU, GFR #### [place] [id number] CO2 [Moles/Vol] 31 mmol/L Normal 22-32 [facility] MAIN Comment on above: Performed By: #### B MP, CBC, ADIFF, ANEU, GFR #### [place] [id number] Creatinine [Mass/Vol] 0.91 mg/dL Normal 0.60-1.40 [facility] MAIN Comment on above: Result Comment: Test ing performed on [employer] analyzer using enzymatic creatinine methodology. Performed By: #### B MP, CBC, ADIFF, ANEU, GFR #### [place] [address] Electrolyte Balance 7.0 mEq/L Normal 4.0-15.0 [facility] MAIN Comment on above: Performed By: #### B MP, CBC, ADIFF, ANEU, GFR #### [place] [id number] Glucose [Mass/Vol] 88 mg/dL Normal 82-115 [facility] MAIN Comment on above: Performed By: #### B MP, CBC, ADIFF, ANEU, GFR #### [place] [phone] Potassium [Moles/Vol] 4.7 mmol/L Normal 3.5-5.0 [facility] MAIN Comment on above: Performed By: #### B MP, CBC, ADIFF, ANEU, GFR #### [address] [address] Sodium [Moles/Vol] 139 mmol/L Normal 136-145 [facility] MAIN Comment on above: Performed By: #### B MP, CBC, ADIFF, ANEU, GFR #### [place] [address] Urea nitrogen [Mass/Vol] 13.0 mg/dL Normal 8.0-22.0 [facility] MAIN Comment on above: Performed By: #### B MP, CBC, ADIFF, ANEU, GFR #### [place] [address] CBCon 08-31-2024 Erythrocyte distribution width (RBC) [Ratio] 15.5 % Normal 11.5-15.5 [facility] MAIN Comment on above: Performed By: #### B MP, CBC, ADIFF, ANEU, GFR #### [place] [address] Hematocrit (Bld) [Volume fraction] 44.4 % Normal 40.0-52.0 [facility] MAIN Comment on above: Performed By: #### B MP, CBC, ADIFF, ANEU, GFR #### [place] [address] Hgb 14.8 G/dL Normal 13.0-17.5 [facility] MAIN Comment on above: Performed By: #### B MP, CBC, ADIFF, ANEU, GFR #### [place] [address] MCH (RBC) [Entitic mass] 27.3 pg Normal 27.0-33.0 [facility] MAIN Comment on above: Performed By: #### B MP, CBC, ADIFF, ANEU, GFR #### [place] [address] MCHC 33.3 G/dL Normal 32.0-36.0 [facility] MAIN Comment on above: Performed By: #### B MP, CBC, ADIFF, ANEU, GFR #### [place] [address] MCV (RBC) [Entitic vol] 82.2 fL Normal 81.0-100.0 [facility] MAIN Comment on above: Performed By: #### B MP, CBC, ADIFF, ANEU, GFR #### [address] [address] Platelet 317 10 3/mcL Normal 150-450 [facility] MAIN Comment on above: Performed By: #### B MP, CBC, ADIFF, ANEU, GFR #### [address] [address] Platelet mean volume (Bld) [Entitic vol] 7.1 fL Normal 6.4-10.5 [facility] MAIN Comment on above: Performed By: #### B MP, CBC, ADIFF, ANEU, GFR #### [address] [address] RBC 5.40 10 6/mcL Normal 4.50-6.00 [facility] MAIN Comment on above: Performed By: #### B MP, CBC, ADIFF, ANEU, GFR #### [address] [address] WBC 10.0 10 3/mcL Normal 4.5-10.8 [facility] MAIN Comment on above: Performed By: #### B MP, CBC, ADIFF, ANEU, GFR #### [address] [address] LABORATORYOrdered By: SYSTEM SYSTEM on 08-31-2024 Basophils (Bld) [#/Vol] 0.1 103/mcL Normal 0.0 - 0.3 10^3/mcL AH Workflow SS Basophils/100 WBC (Bld) 0.6 % Normal 0.0 - 2.5 % Workflow SS Calcium [Mass/Vol] 9.3 mg/dL Normal 8.7 - 10. 4 mg/dL ADM SS Chloride [Moles/Vol] 101 mmol/L Normal 98 - 11 0 mEq/L ADM SS CO2 [Moles/Vol] 31 mmol/L Normal 22 - 32 mEq/L ADM SS Creatinine [Mass/Vol] 0.91 mg/dL Normal 0.60 - 1.40 mg/dL ADM SS Comment on above: Interpretive Data: T esting performed on [employer] analyzer using enzymatic creatinine methodology. Electrolyte Balance 7.0 mEq/L Normal 4.0 - 15 .0 mEq/L ADM SS Eosinophils (Bld) [#/Vol] 0.8 103/mcL High 0.0 - 0.7 10^3/mcL AH Workflow SS Eosinophils/100 WBC (Bld) 8.1 % High 0.0 - 6.0 % AH Workflow SS Erythrocyte distribution width (RBC) [Ratio] 15.5 % Normal 11.5 - 15.5 % AH Workflow SS Estimated Glomerular Filtration Rate 89 ml/min/1.73sqm Invalid Interpretation Code Chemistry S Comment on above: Interpretive Data: Stages of Chronic Kidney Disease (CKD) Stage Description eGFR(ml/min/1.73 sq.m.) CKD 1 Normal kidney function or >=90 normal kindney function with possible kidney damage (ex. Proteinuria) CKD 2 Kidney damage with mild loss 60-89 of kidney function CKD 3a Mild to moderate loss of kidney 45-59 function CKD 3b Moderate to severe loss of 30-44 of kindey function CKD 4 Severe loss of kidney function 15-29 CKD 5 Kidney failure <15 Note: (go live 2024) the eGFR calculation was updated to the 2020 CKD-EPI creatinine equation without a race factor to calculate the eGFR results. Glucose [Mass/Vol] 88 mg/dL Normal 82 - 115 mg/dL ADM SS Hematocrit (Bld) [Volume fraction] 44.4 % Normal 40.0 - 52.0 % AH Workflow SS Hemoglobin (Bld) [Mass/Vol] 14.8 G/dL Normal 13.0 - 17.5 G/dL AH Workflow SS Lymphocytes (Bld) [#/Vol] 1.5 103/mcL Normal 0.9 - 4.3 10^3/mcL Workflow SS Lymphocytes/100 WBC (Bld) 14.8 % Low 20.0 - 40.0 % AH Workflow SS MCH (RBC) [Entitic mass] 27.3 pg Normal 27.0 - 33.0 pg AH Workflow SS MCHC 33.3 G/dL Normal 32.0 - 36.0 G/dL AH Workflow SS MCV (RBC) [Entitic vol] 82.2 fL Normal 81.0 - 100.0 fL AH Workflow SS Monocytes (Bld) [#/Vol] 1.2 103/mcL Normal 0.1 - 1.4 10^3/mcL AH Workflow SS Monocytes/100 WBC (Bld) 11.5 % Normal 2.0 - 13.0 % AH Workflow SS Neutrophils (Bld) [#/Vol] 6.5 103/mcL Normal 2.3 - 8.1 10^3/mcL Workflow SS Neutrophils/100 WBC (Bld) 65.0 % Normal 50.0 - 75.0 % AH Workflow SS Platelet mean volume (Bld) [Entitic vol] 7.1 fL Normal 6.4 - 10.5 fL Workflow SS Platelets (Bld) [#/Vol] 317 103/mcL Normal 150 - 450 10^3/mcL AH Workflow SS Potassium [Moles/Vol] 4.7 mmol/L Normal 3.5 - 5.0 mEq/L ADM SS RBC (Bld) [#/Vol] 5.40 106/mcL Normal 4.50 - 6.00 10^6/mcL Workflow SS Sodium [Moles/Vol] 139 mmol/L Normal 136 - 145 mEq/L ADM SS Urea nitrogen [Mass/Vol] 13.0 mg/dL Normal 8.0 - 22.0 mg/dL ADM SS Urea nitrogen/Creatinine [Mass ratio] 14.3 ratio Normal 10.0 - 22.0 ratio ADM SS WBC (Bld) [#/Vol] 10.0 103/mcL Normal 4.5 - 10.8 10^3/mcL Workflow SS .Auto Diffon 08-30-2024 Basophil, Absolute 0.1 10 3/mcL Normal 0.0-0.3 [facility] MAIN Comment on above: Performed By: #### B MP, CBC, ADIFF, ANEU, GFR #### [address] [address] Basophils/100 WBC (Bld) 0.5 % Normal 0.0-2.5 [facility] MAIN Comment on above: Performed By: #### B MP, CBC, ADIFF, ANEU, GFR #### [address] [address] Eosinophil, Absolute 0.5 10 3/mcL Normal 0.0-0.7 [facility] MAIN Comment on above: Performed By: #### B MP, CBC, ADIFF, ANEU, GFR #### [address] [address] Eosinophils/100 WBC (Bld) 4.6 % Normal 0.0-6.0 [facility] MAIN Comment on above: Performed By: #### B MP, CBC, ADIFF, ANEU, GFR #### [address] [address] Lymphocyte, Absolute 1.3 10 3/mcL Normal 0.9-4.3 [facility] MAIN Comment on above: Performed By: #### B MP, CBC, ADIFF, ANEU, GFR #### [address] [address] Lymphocytes/100 WBC (Bld) 11.8 % Low 20.0-40.0 [facility] MAIN Comment on above: Performed By: #### B MP, CBC, ADIFF, ANEU, GFR #### [address] [address] Monocyte, Absolute 1.3 10 3/mcL Normal 0.1-1.4 [facility] MAIN Comment on above: Performed By: #### B MP, CBC, ADIFF, ANEU, GFR #### [address] [address] Monocytes/100 WBC (Bld) 11.3 % Normal 2.0-13.0 [facility] MAIN Comment on above: Performed By: #### B MP, CBC, ADIFF, ANEU, GFR #### [address] [address] Neutrophils/100 WBC (Bld) 71.8 % Normal 50.0-75.0 [facility] MAIN Comment on above: Performed By: #### B MP, CBC, ADIFF, ANEU, GFR #### [address] [address] .GFRon 08-30-2024 Estimated Glomerular Filtration Rate 91 ml/min/1.73sqm [facility] MAIN Comment on above: Result Comment: Stages of Chronic Kidney Disease (CKD) Stage Description eGFR(ml/min/1.73 sq.m.) CKD 1 Normal kidney function or >=90 normal kindney function with possible kidney damage (ex. Proteinuria) CKD 2 Kidney damage with mild loss 60-89 of kidney function CKD 3a Mild to moderate loss of kidney 45-59 function CKD 3b Moderate to severe loss of 30-44 of kindey function CKD 4 Severe loss of kidney function 15-29 CKD 5 Kidney failure <15 Note: (go live 2024) the eGFR calculation was updated to the 2020 CKD-EPI creatinine equation without a race factor to calculate the eGFR results. Performed By: #### B MP, CBC, ADIFF, ANEU, GFR #### [address] [address] .Morphon 08-30-2024 Platelet Estimate Normal Normal [facility] MAIN Comment on above: Performed By: #### B MP, CBC, ADIFF, ANEU, GFR #### [place] [address] RBC morphology finding Nom (Bld) Normal Normal [facility] MAIN Comment on above: Performed By: #### B MP, CBC, ADIFF, ANEU, GFR #### [place] [address] .NEUABSon 08-30-2024 Neutrophil, Absolute 8.2 10 3/mcL High 2.3-8.1 [facility] MAIN Comment on above: Performed By: #### B MP, CBC, ADIFF, ANEU, GFR #### [place] [address] BMPon 08-30-2024 BUN/Creatinine Ratio 19.5 ratio Normal 10.0-22.0 [facility] MAIN Comment on above: Performed By: #### B MP, CBC, ADIFF, ANEU, GFR #### [place] [address] Calcium [Mass/Vol] 9.5 mg/dL Normal 8.7-10.4 [facility] MAIN Comment on above: Performed By: #### B MP, CBC, ADIFF, ANEU, GFR #### [place] [address] Chloride [Moles/Vol] 102 mmol/L Normal 98-110 [facility] MAIN Comment on above: Performed By: #### B MP, CBC, ADIFF, ANEU, GFR #### [place] [address] CO2 [Moles/Vol] 28 mmol/L Normal 22-32 [facility] MAIN Comment on above: Performed By: #### B MP, CBC, ADIFF, ANEU, GFR #### [address] [address] Creatinine [Mass/Vol] 0.87 mg/dL Normal 0.60-1.40 [facility] MAIN Comment on above: Result Comment: Test ing performed on [employer] analyzer using enzymatic creatinine methodology. Performed By: #### B MP, CBC, ADIFF, ANEU, GFR #### [place] [id number] Electrolyte Balance 7.0 mEq/L Normal 4.0-15.0 [facility] MAIN Comment on above: Performed By: #### B MP, CBC, ADIFF, ANEU, GFR #### [address] [address] Glucose [Mass/Vol] 105 mg/dL Normal 82-115 [facility] MAIN Comment on above: Performed By: #### B MP, CBC, ADIFF, ANEU, GFR #### [place] [id number] Potassium [Moles/Vol] 3.8 mmol/L Normal 3.5-5.0 [facility] MAIN Comment on above: Performed By: #### B MP, CBC, ADIFF, ANEU, GFR #### [place] [id number] Sodium [Moles/Vol] 137 mmol/L Normal 136-145 [facility] MAIN Comment on above: Performed By: #### B MP, CBC, ADIFF, ANEU, GFR #### [address] [address] Urea nitrogen [Mass/Vol] 17.0 mg/dL Normal 8.0-22.0 [facility] MAIN Comment on above: Performed By: #### B MP, CBC, ADIFF, ANEU, GFR #### [address] [address] CBCon 08-30-2024 Erythrocyte distribution width (RBC) [Ratio] 15.9 % High 11.5-15.5 [facility] MAIN Comment on above: Performed By: #### B MP, CBC, ADIFF, ANEU, GFR #### [place] [address] Hematocrit (Bld) [Volume fraction] 43.8 % Normal 40.0-52.0 [facility] MAIN Comment on above: Performed By: #### B MP, CBC, ADIFF, ANEU, GFR #### [place] [address] Hgb 14.6 G/dL Normal 13.0-17.5 [facility] MAIN Comment on above: Performed By: #### B MP, CBC, ADIFF, ANEU, GFR #### [place] [address] MCH (RBC) [Entitic mass] 27.4 pg Normal 27.0-33.0 [facility] MAIN Comment on above: Performed By: #### B MP, CBC, ADIFF, ANEU, GFR #### [place] [address] MCHC 33.4 G/dL Normal 32.0-36.0 [facility] MAIN Comment on above: Performed By: #### B MP, CBC, ADIFF, ANEU, GFR #### [place] [address] MCV (RBC) [Entitic vol] 82.2 fL Normal 81.0-100.0 [facility] MAIN Comment on above: Performed By: #### B MP, CBC, ADIFF, ANEU, GFR #### [place] [address] Platelet 317 10 3/mcL Normal 150-450 [facility] MAIN Comment on above: Performed By: #### B MP, CBC, ADIFF, ANEU, GFR #### [place] [address] Platelet mean volume (Bld) [Entitic vol] 7.1 fL Normal 6.4-10.5 [facility] MAIN Comment on above: Performed By: #### B MP, CBC, ADIFF, ANEU, GFR #### [place] [address] RBC 5.33 10 6/mcL Normal 4.50-6.00 [facility] MAIN Comment on above: Performed By: #### B MP, CBC, ADIFF, ANEU, GFR #### [facility] [address] [place] [address] WBC 11.4 10 3/mcL High 4.5-10.8 [facility] MAIN Comment on above: Performed By: #### B MP, CBC, ADIFF, ANEU, GFR #### [facility] [address] [place] [address] LABORATORYOrdered By: Alba Dey on 08-30-2024 Glucose [Mass/Vol] 158 mg/dL High 82 - 115 mg/dL [facility] LABORATORYOrdered By: SYSTEM SYSTEM on 08-30-2024 Basophils (Bld) [#/Vol] 0.1 103/mcL Normal 0.0 - 0.3 10^3/mcL Workflow SS Basophils/100 WBC (Bld) 0.5 % Normal 0.0 - 2.5 % Workflow SS Calcium [Mass/Vol] 9.5 mg/dL Normal 8.7 - 10. 4 mg/dL ADM SS Chloride [Moles/Vol] 102 mmol/L Normal 98 - 11 0 mEq/L ADM SS CO2 [Moles/Vol] 28 mmol/L Normal 22 - 32 mEq/L ADM SS Creatinine [Mass/Vol] 0.87 mg/dL Normal 0.60 - 1.40 mg/dL ADM SS Comment on above: Interpretive Data: T esting performed on [employer] analyzer using enzymatic creatinine methodology. Electrolyte Balance 7.0 mEq/L Normal 4.0 - 15 .0 mEq/L ADM SS Eosinophils (Bld) [#/Vol] 0.5 103/mcL Normal 0.0 - 0.7 10^3/mcL Workflow SS Eosinophils/100 WBC (Bld) 4.6 % Normal 0.0 - 6.0 % Workflow SS Erythrocyte distribution width (RBC) [Ratio] 15.9 % High 11.5 - 15.5 % Workflow SS Estimated Glomerular Filtration Rate 91 ml/min/1.73sqm Invalid Interpretation Code Chemistry S Comment on above: Interpretive Data: Stages of Chronic Kidney Disease (CKD) Stage Description eGFR(ml/min/1.73 sq.m.) CKD 1 Normal kidney function or >=90 normal kindney function with possible kidney damage (ex. Proteinuria) CKD 2 Kidney damage with mild loss 60-89 of kidney function CKD 3a Mild to moderate loss of kidney 45-59 function CKD 3b Moderate to severe loss of 30-44 of kindey function CKD 4 Severe loss of kidney function 15-29 CKD 5 Kidney failure <15 Note: (go live 2024) the eGFR calculation was updated to the 2020 CKD-EPI creatinine equation without a race factor to calculate the eGFR results. Glucose [Mass/Vol] 105 mg/dL Normal 82 - 115 mg/dL AH ADM SS Hematocrit (Bld) [Volume fraction] 43.8 % Normal 40.0 - 52.0 % AH Workflow SS Hemoglobin (Bld) [Mass/Vol] 14.6 G/dL Normal 13.0 - 17.5 G/dL AH Workflow SS Lymphocytes (Bld) [#/Vol] 1.3 103/mcL Normal 0.9 - 4.3 10^3/mcL AH Workflow SS Lymphocytes/100 WBC (Bld) 11.8 % Low 20.0 - 40.0 % AH Workflow SS MCH (RBC) [Entitic mass] 27.4 pg Normal 27.0 - 33.0 pg AH Workflow SS MCHC 33.4 G/dL Normal 32.0 - 36.0 G/dL AH Workflow SS MCV (RBC) [Entitic vol] 82.2 fL Normal 81.0 - 100.0 fL AH Workflow SS Monocytes (Bld) [#/Vol] 1.3 103/mcL Normal 0.1 - 1.4 10^3/mcL AH Workflow SS Monocytes/100 WBC (Bld) 11.3 % Normal 2.0 - 13.0 % AH Workflow SS Neutrophils (Bld) [#/Vol] 8.2 103/mcL High 2.3 - 8.1 10^3/mcL AH Workflow SS Neutrophils/100 WBC (Bld) 71.8 % Normal 50.0 - 75.0 % AH Workflow SS Platelet mean volume (Bld) [Entitic vol] 7.1 fL Normal 6.4 - 10.5 fL AH Workflow SS Platelets (Bld) [#/Vol] 317 103/mcL Normal 150 - 450 10^3/mcL AH Workflow SS Platelets LM Ql (Bld) Normal *NA* (08/30/24 6:41 AM) Invalid Interpretation Code AH Workflow SS Potassium [Moles/Vol] 3.8 mmol/L Normal 3.5 - 5.0 mEq/L ADM SS RBC (Bld) [#/Vol] 5.33 106/mcL Normal 4.50 - 6.00 10^6/mcL Workflow SS RBC morphology finding Nom (Bld) Normal *NA* (08/30/24 6:41 AM) Invalid Interpretation Code Workflow SS Sodium [Moles/Vol] 137 mmol/L Normal 136 - 145 mEq/L ADM SS Urea nitrogen [Mass/Vol] 17.0 mg/dL Normal 8.0 - 22.0 mg/dL ADM SS Urea nitrogen/Creatinine [Mass ratio] 19.5 ratio Normal 10.0 - 22.0 ratio ADM SS WBC (Bld) [#/Vol] 11.4 103/mcL High 4.5 - 10.8 10^3/mcL Workflow SS .Auto Diffon 08-29-2024 Basophil, Absolute 0.0 10 3/mcL Normal 0.0-0.3 [facility] MAIN Comment on above: Performed By: #### B MP, CBC, ADIFF, ANEU, GFR #### [address] [address] Basophils/100 WBC (Bld) 0.1 % Normal 0.0-2.5 [facility] MAIN Comment on above: Performed By: #### B MP, CBC, ADIFF, ANEU, GFR #### [address] [address] Eosinophil, Absolute 0.0 10 3/mcL Normal 0.0-0.7 [facility] MAIN Comment on above: Performed By: #### B MP, CBC, ADIFF, ANEU, GFR #### [address] [address] Eosinophils/100 WBC (Bld) 0.2 % Normal 0.0-6.0 [facility] MAIN Comment on above: Performed By: #### B MP, CBC, ADIFF, ANEU, GFR #### [address] [address] Lymphocyte, Absolute 0.7 10 3/mcL Low 0.9-4.3 [facility] MAIN Comment on above: Performed By: #### B MP, CBC, ADIFF, ANEU, GFR #### [address] [address] Lymphocytes/100 WBC (Bld) 5.7 % Low 20.0-40.0 [facility] MAIN Comment on above: Performed By: #### B MP, CBC, ADIFF, ANEU, GFR #### [place] [id number] [address] [place] [address] Monocyte, Absolute 1.0 10 3/mcL Normal 0.1-1.4 [facility] MAIN Comment on above: Performed By: #### B MP, CBC, ADIFF, ANEU, GFR #### [address] [address] Monocytes/100 WBC (Bld) 8.3 % Normal 2.0-13.0 [facility] MAIN Comment on above: Performed By: #### B MP, CBC, ADIFF, ANEU, GFR #### [address] [address] Neutrophils/100 WBC (Bld) 85.7 % High 50.0-75.0 [facility] MAIN Comment on above: Performed By: #### B MP, CBC, ADIFF, ANEU, GFR #### [address] [address] .GFRon 08-29-2024 Estimated Glomerular Filtration Rate 91 ml/min/1.73sqm Normal [facility] MAIN Comment on above: Result Comment: Stages of Chronic Kidney Disease (CKD) Stage Description eGFR(ml/min/1.73 sq.m.) CKD 1 Normal kidney function or >=90 normal kindney function with possible kidney damage (ex. Proteinuria) CKD 2 Kidney damage with mild loss 60-89 of kidney function CKD 3a Mild to moderate loss of kidney 45-59 function CKD 3b Moderate to severe loss of 30-44 of kindey function CKD 4 Severe loss of kidney function 15-29 CKD 5 Kidney failure <15 Note: (go live 2024) the eGFR calculation was updated to the 2020 CKD-EPI creatinine equation without a race factor to calculate the eGFR results. Performed By: #### B MP, CBC, ADIFF, ANEU, GFR #### [address] [address] .NEUABSon 08-29-2024 Neutrophil, Absolute 10.6 10 3/mcL High 2.3-8.1 A [facility] MAIN Comment on above: Performed By: #### B MP, CBC, ADIFF, ANEU, GFR #### [address] [address] BMPon 08-29-2024 BUN/Creatinine Ratio 14.9 ratio Normal 10.0-22.0 [facility] MAIN Comment on above: Performed By: #### B MP, CBC, ADIFF, ANEU, GFR #### [place] [id number] Calcium [Mass/Vol] 10.1 mg/dL Normal 8.7-10.4 [facility] MAIN Comment on above: Performed By: #### B MP, CBC, ADIFF, ANEU, GFR #### [place] [id number] Chloride [Moles/Vol] 103 mmol/L Normal 98-110 [facility] MAIN Comment on above: Performed By: #### B MP, CBC, ADIFF, ANEU, GFR #### [place] [id number] CO2 [Moles/Vol] 24 mmol/L Normal 22-32 [facility] MAIN Comment on above: Performed By: #### B MP, CBC, ADIFF, ANEU, GFR #### [place] [phone] Creatinine [Mass/Vol] 0.87 mg/dL Normal 0.60-1.40 [facility] MAIN Comment on above: Result Comment: Test ing performed on [employer] analyzer using enzymatic creatinine methodology. Performed By: #### B MP, CBC, ADIFF, ANEU, GFR #### [place] [id number] Electrolyte Balance 11.0 mEq/L Normal 4.0-15.0 [facility] MAIN Comment on above: Performed By: #### B MP, CBC, ADIFF, ANEU, GFR #### [place] [id number] Glucose [Mass/Vol] 117 mg/dL High 82-115 [facility] MAIN Comment on above: Performed By: #### B MP, CBC, ADIFF, ANEU, GFR #### [place] [phone] Potassium [Moles/Vol] 4.2 mmol/L Normal 3.5-5.0 [facility] MAIN Comment on above: Performed By: #### B MP, CBC, ADIFF, ANEU, GFR #### [place] [address] Sodium [Moles/Vol] 138 mmol/L Normal 136-145 [facility] Comment on above: Performed By: #### B MP, CBC, ADIFF, ANEU, GFR #### [place] [address] Urea nitrogen [Mass/Vol] 13.0 mg/dL Normal 8.0-22.0 [facility] Comment on above: Performed By: #### B MP, CBC, ADIFF, ANEU, GFR #### [place] [address] [facility]Con 08-29-2024 Erythrocyte distribution width (RBC) [Ratio] 15.9 % High 11.5-15.5 [facility] Comment on above: Performed By: #### B MP, CBC, ADIFF, ANEU, GFR #### [place] [address] Hematocrit (Bld) [Volume fraction] 45.7 % Normal 40.0-52.0 [facility] Comment on above: Performed By: #### B MP, CBC, ADIFF, ANEU, GFR #### [place] [address] Hgb 15.1 G/dL Normal 13.0-17.5 [facility] Comment on above: Performed By: #### B MP, CBC, ADIFF, ANEU, GFR #### [place] [address] MCH (RBC) [Entitic mass] 27.7 pg Normal 27.0-33.0 [facility] Comment on above: Performed By: #### B MP, CBC, ADIFF, ANEU, GFR #### [place] [id number] MCHC 33.1 G/dL Normal 32.0-36.0 [facility] Comment on above: Performed By: #### B MP, CBC, ADIFF, ANEU, GFR #### [place] [address] MCV (RBC) [Entitic vol] 83.6 fL Normal 81.0-100.0 [facility] Comment on above: Performed By: #### B MP, CBC, ADIFF, ANEU, GFR #### [place] [address] Platelet 284 10 3/mcL Normal 150-450 [facility] Comment on above: Performed By: #### B MP, CBC, ADIFF, ANEU, GFR #### [place] [address] Platelet mean volume (Bld) [Entitic vol] 7.6 fL Normal 6.4-10.5 [facility] Comment on above: Performed By: #### B MP, CBC, ADIFF, ANEU, GFR #### [place] [address] RBC 5.47 10 6/mcL Normal 4.50-6.00 [facility] Comment on above: Performed By: #### B MP, CBC, ADIFF, ANEU, GFR #### [place] [address] WBC 12.4 10 3/mcL High 4.5-10.8 [facility] Comment on above: Performed By: #### B MP, CBC, ADIFF, ANEU, GFR #### [place] [address] LABORATORYOrdered By: SYSTEM SYSTEM on 08-29-2024 Basophils (Bld) [#/Vol] 0.0 103/mcL Normal 0.0 - 0.3 10^3/mcL AH Workflow SS Basophils/100 WBC (Bld) 0.1 % Normal 0.0 - 2.5 % AH Workflow SS Calcium [Mass/Vol] 10.1 mg/dL Normal 8.7 - 10. 4 mg/dL AH ADM SS Chloride [Moles/Vol] 103 mmol/L Normal 98 - 11 0 mEq/L AH ADM SS CO2 [Moles/Vol] 24 mmol/L Normal 22 - 32 mEq/L ADM SS Creatinine [Mass/Vol] 0.87 mg/dL Normal 0.60 - 1.40 mg/dL ADM SS Comment on above: Interpretive Data: T esting performed on [employer] analyzer using enzymatic creatinine methodology. Electrolyte Balance 11.0 mEq/L Normal 4.0 - 15 .0 mEq/L ADM SS Eosinophils (Bld) [#/Vol] 0.0 103/mcL Normal 0.0 - 0.7 10^3/mcL Workflow SS Eosinophils/100 WBC (Bld) 0.2 % Normal 0.0 - 6.0 % Workflow SS Erythrocyte distribution width (RBC) [Ratio] 15.9 % High 11.5 - 15.5 % Workflow SS Estimated Glomerular Filtration Rate 91 ml/min/1.73sqm Invalid Interpretation Code Chemistry S Comment on above: Interpretive Data: Stages of Chronic Kidney Disease (CKD) Stage Description eGFR(ml/min/1.73 sq.m.) CKD 1 Normal kidney function or >=90 normal kindney function with possible kidney damage (ex. Proteinuria) CKD 2 Kidney damage with mild loss 60-89 of kidney function CKD 3a Mild to moderate loss of kidney 45-59 function CKD 3b Moderate to severe loss of 30-44 of kindey function CKD 4 Severe loss of kidney function 15-29 CKD 5 Kidney failure <15 Note: (go live 2024) the eGFR calculation was updated to the 2020 CKD-EPI creatinine equation without a race factor to calculate the eGFR results. Glucose [Mass/Vol] 117 mg/dL High 82 - 115 mg/dL ADM SS Hematocrit (Bld) [Volume fraction] 45.7 % Normal 40.0 - 52.0 % Workflow SS Hemoglobin (Bld) [Mass/Vol] 15.1 G/dL Normal 13.0 - 17.5 G/dL Workflow SS Lymphocytes (Bld) [#/Vol] 0.7 103/mcL Low 0.9 - 4.3 10^3/mcL Workflow SS Lymphocytes/100 WBC (Bld) 5.7 % Low 20.0 - 40.0 % Workflow SS MCH (RBC) [Entitic mass] 27.7 pg Normal 27.0 - 33.0 pg Workflow SS MCHC 33.1 G/dL Normal 32.0 - 36.0 G/dL AH Workflow SS MCV (RBC) [Entitic vol] 83.6 fL Normal 81.0 - 100.0 fL AH Workflow SS Monocytes (Bld) [#/Vol] 1.0 103/mcL Normal 0.1 - 1.4 10^3/mcL AH Workflow SS Monocytes/100 WBC (Bld) 8.3 % Normal 2.0 - 13.0 % AH Workflow SS Neutrophils (Bld) [#/Vol] 10.6 103/mcL High 2.3 - 8.1 10^3/mcL AH Workflow SS Neutrophils/100 WBC (Bld) 85.7 % High 50.0 - 75.0 % AH Workflow SS Platelet mean volume (Bld) [Entitic vol] 7.6 fL Normal 6.4 - 10.5 fL AH Workflow SS Platelets (Bld) [#/Vol] 284 103/mcL Normal 150 - 450 10^3/mcL AH Workflow SS Potassium [Moles/Vol] 4.2 mmol/L Normal 3.5 - 5.0 mEq/L ADM SS RBC (Bld) [#/Vol] 5.47 106/mcL Normal 4.50 - 6.00 10^6/mcL AH Workflow SS Sodium [Moles/Vol] 138 mmol/L Normal 136 - 145 mEq/L AH ADM SS Urea nitrogen [Mass/Vol] 13.0 mg/dL Normal 8.0 - 22.0 mg/dL AH ADM SS Urea nitrogen/Creatinine [Mass ratio] 14.9 ratio Normal 10.0 - 22.0 ratio AH ADM SS WBC (Bld) [#/Vol] 12.4 103/mcL High 4.5 - 10.8 10^3/mcL Workflow SS Final Surgical Pathology Rep [facility] 08-28-2024 Final Surgical Pathology Report . Pathology Reports Accession: Collected Date/Time: Received Date/Time: Pathologist: [id number] 08/26/2024 10:07 EDT 08/26/2024 10:58 EDT BLU TRAVIS MD Final Surgical Pathology Report DIAGNOSIS: RIGHT COLON AND PROXIMAL TRANSVERSE COLON: - INVASIVE MODERATELY DIFFERENTIATED ADENOCARCINOMA, COLONIC TYPE, EXTENDING THROUGH THE MUSCULAR WALL INTO SUBSEROSAL CONNECTIVE TISSUE. MARGINS ARE NEGATIVE. 20 REGIONAL NODES ARE NEGATIVE FOR TUMOR COLON AND RECTUM: Resection SPECIMEN PROCEDURE: Right hemicolectomy MACROSCOPIC EVALUATION OF MESORECTUM: Not applicable TUMOR TUMOR SITE: TRANSVERSE COLON HISTOLOGIC TYPE: Adenocarcinoma HISTOLOGIC GRADE: G2, moderately differentiated TUMOR SIZE: GREATEST DIMENSION (CENTIMETERS) - 2.6 cm MULTIPLE PRIMARY SITES: Not applicable TUMOR EXTENT: Invades through muscularis propria into the pericolonic or perirectal tissue SUB-MUCOSAL INVASION: Not applicable MACROSCOPIC TUMOR PERFORATION: Not identified LYMPHATIC AND / OR VASCULAR INVASION: Not identified PERINEURAL INVASION: Not identified TREATMENT EFFECT: No known presurgical therapy MARGINS MARGIN STATUS FOR INVASIVE CARCINOMA: All margins negative for invasive carcinoma DISTANCE FROM INVASIVE CARCINOMA TO RADIAL (CIRCUMFERENTIAL) MARGIN: Not applicable MARGIN STATUS FOR NON-INVASIVE TUMOR: All margins negative for high-grade dysplasia / intramucosal carcinoma and low-grade dysplasia REGIONAL LYMPH NODES REGIONAL LYMPH NODE STATUS: All regional lymph nodes negative for tumor NUMBER OF LYMPH NODES EXAMINED: 20 TUMOR DEPOSITS: Not identified DISTANT METASTASIS DISTANT SITE(S) INVOLVED: Not applicable pTNM CLASSIFICATION (AJCC 8th Edition) Reporting of pT, pN, and (when applicable) pM categories is based on information available to the pathologist at the time the report is issued. As per the AJCC (Chapter 1, 8th Ed.) it is the managing physician's responsibility to establish the final pathologic stage based upon all pertinent information, including but potentially not limited to this pathology report. MODIFIED CLASSIFICATION: Not applicable PT CATEGORY: pT3 T SUFFIX: Not applicable PN CATEGORY: pN0 PM CATEGORY: Not applicable - pM cannot be determined from the submitted specimen(s) COMMENT(S): MMR testing performed by outside lab, [employer], their number [id number]. Pending at the time of that report PORCELAIN TURNER TUMOR BLOCK(S): A5 CLINICAL INFORMATION: Procedure: LAPAROSCOPIC RIGHT COLECTOMY Preoperative diagnosis: COLON CANCER Postoperative diagnosis: COLON CANCER SPECIMEN: A RIGHT COLON AND PROXIMAL TRANSVERSE COLON Pathology Reports Accession: Collected Date/Time: Received Date/Time: Pathologist: [id number] 08/26/2024 10:07 EDT 08/26/2024 10:58 EDT BLU TRAVIS MD GROSS DESCRIPTION: All parts labelled with patient name and [id number] Received in formalin labelled "right colon and proximal transverse colon" is a right hemicolectomy with terminal ileum (4 x 2 cm), cecum, ascending colon and proximal transverse colon (30 x 2.5 -5 cm) and appendix (5 x 0.5 cm). The serosal surface is pink-hemorrhagic with multiple thin adhesions as well as an area of black tattoo inking on the proximal transverse colon. Blue ink is applied to the serosal surface at the area of black tattoo ink and black ink is applied to the mesenteric margin. The specimen is opened at both stapled ends to reveal in the proximal transverse colon is a wesley-pink centrally ulcerated polypoid mass with heaped up borders measuring 2.6 x 2.5 x 0.6 cm. The tumor mass is located 25.5 cm to the proximal staple line margin, 5 cm to the distal staple line margin, 0.5 cm to the blue inked serosal surface and 4 cm to the black inked mesenteric margin. Sectioning of the polypoid tumor reveals tumor extension beyond the muscle layer into the surrounding pericolonic adipose tissue (A6). The terminal ileum mucosa, cecum and ascending colon mucosa are wesley-pink unremarkably folded with no identified polyps or masses. The pericolonic adipose tissue was removed from the specimen and placed into dissect aid solution. The tissue is palpated and dissected to reveal multiple lymph nodes which are submitted. RS-20 Cassette Summary: A1 - Proximal staple line margin A2 - Distal staple line margin A3 - Appendix A4 - Black inked mesenteric margin A5-A11 -Entire polypoid tumor mass (A11 -closest blue inked serosa) A12 - Transverse mucosa A13 - Terminal ileum mucosa A14 - Cecum mucosa A15 - Ascending colon mucosa A16 - 5 possible lymph nodes A17 - 5 possible lymph nodes A18 - 5 possible lymph nodes A19 - 5 possible lymph nodes A20 - 5 possible lymph nodes Maren Silva, Pathologists' Curriculum Specialist (ASCP) Performed by MAREN SILVA MICROSCOPIC DESCRIPTION: The microscopic examination is performed, except in the case of Gross Only. Verified by Pathology Report verified by [facility] (more content not included)... Normal [facility] Final Surgical Pathology Report Event Display: SP Gross All parts labelled with patient name and [id number] Received in formalin labelled "right colon and proximal transverse colon" is a right hemicolectomy with terminal ileum (4 x 2 cm), cecum, ascending colon and proximal transverse colon (30 x 2.5 5 cm) and appendix (5 x 0.5 cm). The serosal surface is pink-hemorrhagic with multiple thin adhesions as well as an area of black tattoo inking on the proximal transverse colon. Blue ink is applied to the serosal surface at the area of black tattoo ink and black ink is applied to the mesenteric margin. The specimen is opened at both stapled ends to reveal in the proximal transverse colon is a wesley-pink centrally ulcerated polypoid mass with heaped up borders measuring 2.6 x 2.5 x 0.6 cm. The tumor mass is located 25.5 cm to the proximal staple line margin, 5 cm to the distal staple line margin, 0.5 cm to the blue inked serosal surface and 4 cm to the black inked mesenteric margin. Sectioning of the polypoid tumor reveals tumor extension beyond the muscle layer into the surrounding pericolonic adipose tissue (A6). The terminal ileum mucosa, cecum and ascending colon mucosa are wesley-pink unremarkably folded with no identified polyps or masses. The pericolonic adipose tissue was removed from the specimen and placed into dissect aid solution. The tissue is palpated and dissected to reveal multiple lymph nodes which are submitted. RS-20 Cassette Summary: A1 - Proximal staple line margin A2 - Distal staple line margin A3 - Appendix A4 - Black inked mesenteric margin A5-A11 -Entire polypoid tumor mass (A11 closest blue inked serosa) A12 - Transverse mucosa A13 - Terminal ileum mucosa A14 - Cecum mucosa A15 - Ascending colon mucosa A16 - 5 possible lymph nodes A17 - 5 possible lymph nodes A18 - 5 possible lymph nodes A19 - 5 possible lymph nodes A20 - 5 possible lymph nodes Maren Silva, Pathologists' Curriculum Specialist (ASCP) Performed by BLU BLANK MD:VERIFY; Authored Date: [facility] Final Surgical Pathology Report Event Display: SP Signature Pathology Report verified by [facility] BLU TRAVIS Sign out Date: 08/28/2024 13:55 Performing Lab: [facility], [address] [place] [address] Pathology Dept BLU TRAVIS MD:VERIFY; Authored Date: [facility] Final Surgical Pathology Report Event Display: SP Specimen ARIGHT COLON AND PROXIMAL TRANSVERSE COLON BLU TRAVIS MD:VERIFY; Authored Date: [id number] [facility] Final Surgical Pathology Report Event Display: SP Dx RIGHT COLON AND PROXIMAL TRANSVERSE COLON: - INVASIVE MODERATELY DIFFERENTIATED ADENOCARCINOMA, COLONIC TYPE, EXTENDING THROUGH THE MUSCULAR WALL INTO SUBSEROSAL CONNECTIVE TISSUE. MARGINS ARE NEGATIVE. 20 REGIONAL NODES ARE NEGATIVE FOR TUMOR COLON AND RECTUM: Resection SPECIMEN PROCEDURE: Right hemicolectomy MACROSCOPIC EVALUATION OF MESORECTUM: Not applicable TUMOR TUMOR SITE: TRANSVERSE COLON HISTOLOGIC TYPE: Adenocarcinoma HISTOLOGIC GRADE: G2, moderately differentiated TUMOR SIZE: GREATEST DIMENSION (CENTIMETERS) - 2.6 cm MULTIPLE PRIMARY SITES: Not applicable TUMOR EXTENT: Invades through muscularis propria into the pericolonic or perirectal tissue SUB-MUCOSAL INVASION: Not applicable MACROSCOPIC TUMOR PERFORATION: Not identified LYMPHATIC AND / OR VASCULAR INVASION: Not identified PERINEURAL INVASION: Not identified TREATMENT EFFECT: No known presurgical therapy MARGINS MARGIN STATUS FOR INVASIVE CARCINOMA: All margins negative for invasive carcinoma DISTANCE FROM INVASIVE CARCINOMA TO RADIAL (CIRCUMFERENTIAL) MARGIN: Not applicable MARGIN STATUS FOR NON-INVASIVE TUMOR: All margins negative for high-grade dysplasia / intramucosal carcinoma and low-grade dysplasia REGIONAL LYMPH NODES REGIONAL LYMPH NODE STATUS: All regional lymph nodes negative for tumor NUMBER OF LYMPH NODES EXAMINED: 20 TUMOR DEPOSITS: Not identified DISTANT METASTASIS DISTANT SITE(S) INVOLVED: Not applicable pTNM CLASSIFICATION (AJCC 8th Edition) Reporting of pT, pN, and (when applicable) pM categories is based on information available to the pathologist at the time the report is issued. As per the AJCC (Chapter 1, 8th Ed.) it is the managing physician's responsibility to establish the final pathologic stage based upon all pertinent information, including but potentially not limited to this pathology report. MODIFIED CLASSIFICATION: Not applicable PT CATEGORY: pT3 T SUFFIX: Not applicable PN CATEGORY: pN0 PM CATEGORY: Not applicable - pM cannot be determined from the submitted specimen(s) COMMENT(S): MMR testing performed by outside lab, [employer], their number [id number]. Pending at the time of that report PORCELAIN TURNER TUMOR BLOCK(S): A5 BLU TRAVIS MD:VERIFY; Authored Date: [id number] [facility] Final Surgical Pathology Report Event Display: SP Disclaimer If ancillary studies were utilized, the following Laboratory Developed Test (LDT) disclaimer will apply: Under CLIA requirements, [facility] Pathology Laboratory is qualified to perform high complexity testing. For all ancillary stains, positive and negative controls stain appropriately. Performance characteristics of immunohistochemical and chromogenic in-situ hybridization tests have been determined by [facility] Pathology Laboratory. These tests are used for clinical purposes, They should not be regarded as investigational or for research. BLU TRAVIS MD:VERIFY; Authored Date: [facility] Final Surgical Pathology Report Event Display: SP Micro The microscopic examination is performed, except in the case of Gross Only. BLU TRAVIS MD:VERIFY; Authored Date: [id number] [facility] .Auto Diffon 08-27-2024 Basophil, Absolute 0.0 10 3/mcL Normal 0.0-0.3 [facility] Comment on above: Performed By: #### B MP, CBC, ADIFF, ANEU, GFR #### [address] [address] Basophils/100 WBC (Bld) 0.1 % Normal 0.0-2.5 [facility] Comment on above: Performed By: #### B MP, CBC, ADIFF, ANEU, GFR #### [address] [address] Eosinophil, Absolute 0.0 10 3/mcL Normal 0.0-0.7 [facility] Comment on above: Performed By: #### B MP, CBC, ADIFF, ANEU, GFR #### [address] [address] Eosinophils/100 WBC (Bld) 0.1 % Normal 0.0-6.0 [facility] Comment on above: Performed By: #### B MP, CBC, ADIFF, ANEU, GFR #### [address] [address] Lymphocyte, Absolute 1.4 10 3/mcL Normal 0.9-4.3 [facility] Comment on above: Performed By: #### B MP, CBC, ADIFF, ANEU, GFR #### [address] [address] Lymphocytes/100 WBC (Bld) 14.2 % Low 20.0-40.0 [facility] Comment on above: Performed By: #### B MP, CBC, ADIFF, ANEU, GFR #### [address] [address] Monocyte, Absolute 1.3 10 3/mcL Normal 0.1-1.4 [facility] Comment on above: Performed By: #### B MP, CBC, ADIFF, ANEU, GFR #### [address] [address] Monocytes/100 WBC (Bld) 12.8 % Normal 2.0-13.0 [facility] Comment on above: Performed By: #### B MP, CBC, ADIFF, ANEU, GFR #### [address] [address] Neutrophils/100 WBC (Bld) 72.8 % Normal 50.0-75.0 [facility] Comment on above: Performed By: #### B MP, CBC, ADIFF, ANEU, GFR #### [address] [address] .GFRon 08-27-2024 Estimated Glomerular Filtration Rate 80 ml/min/1.73sqm Normal [facility] Comment on above: Result Comment: Stages of Chronic Kidney Disease (CKD) Stage Description eGFR(ml/min/1.73 sq.m.) CKD 1 Normal kidney function or >=90 normal kindney function with possible kidney damage (ex. Proteinuria) CKD 2 Kidney damage with mild loss 60-89 of kidney function CKD 3a Mild to moderate loss of kidney 45-59 function CKD 3b Moderate to severe loss of 30-44 of kindey function CKD 4 Severe loss of kidney function 15-29 CKD 5 Kidney failure <15 Note: (go live 2024) the eGFR calculation was updated to the 2020 CKD-EPI creatinine equation without a race factor to calculate the eGFR results. Performed By: #### B MP, CBC, ADIFF, ANEU, GFR #### [address] [address] .Morphon 08-27-2024 Anisocytosis Ql (Bld) 1+ Normal [facility] Comment on above: Performed By: #### B MP, CBC, ADIFF, ANEU, GFR #### [place] [address] Platelet Estimate Normal Normal [facility] Comment on above: Performed By: #### B MP, CBC, ADIFF, ANEU, GFR #### [address] [address] .NEUABSon 08-27-2024 Neutrophil, Absolute 7.3 10 3/mcL Normal 2.3-8.1 [facility] Comment on above: Performed By: #### B MP, CBC, ADIFF, ANEU, GFR #### [place] [id number] BMPon 08-27-2024 BUN/Creatinine Ratio 13.1 ratio Normal 10.0-22.0 [facility] Comment on above: Performed By: #### B MP, CBC, ADIFF, ANEU, GFR #### [address] [address] Calcium [Mass/Vol] 9.9 mg/dL Normal 8.7-10.4 [facility] Comment on above: Performed By: #### B MP, CBC, ADIFF, ANEU, GFR #### [place] [address] Chloride [Moles/Vol] 105 mmol/L Normal 98-110 [facility] Comment on above: Performed By: #### B MP, CBC, ADIFF, ANEU, GFR #### [address] [address] CO2 [Moles/Vol] 26 mmol/L Normal 22-32 [facility] Comment on above: Performed By: #### B MP, CBC, ADIFF, ANEU, GFR #### [place] [id number] Creatinine [Mass/Vol] 0.99 mg/dL Normal 0.60-1.40 [facility] Comment on above: Result Comment: Test ing performed on [employer] analyzer using enzymatic creatinine methodology. Performed By: #### B MP, CBC, ADIFF, ANEU, GFR #### [address] [address] Electrolyte Balance 8.0 mEq/L Normal 4.0-15.0 [facility] Comment on above: Performed By: #### B MP, CBC, ADIFF, ANEU, GFR #### [address] [address] Glucose [Mass/Vol] 114 mg/dL Normal 82-115 [facility] Comment on above: Performed By: #### B MP, CBC, ADIFF, ANEU, GFR #### [place] [id number] Potassium [Moles/Vol] 3.9 mmol/L Normal 3.5-5.0 [facility] Comment on above: Performed By: #### B MP, CBC, ADIFF, ANEU, GFR #### [place] [id number] Sodium [Moles/Vol] 139 mmol/L Normal 136-145 [facility] Comment on above: Performed By: #### B MP, CBC, ADIFF, ANEU, GFR #### [place] [id number] Urea nitrogen [Mass/Vol] 13.0 mg/dL Normal 8.0-22.0 [facility] Comment on above: Performed By: #### B MP, CBC, ADIFF, ANEU, GFR #### [address] [address] CBC 08-27-2024 Erythrocyte distribution width (RBC) [Ratio] 17.1 % High 11.5-15.5 [facility] Comment on above: Performed By: #### B MP, CBC, ADIFF, ANEU, GFR #### [place] [id number] Hematocrit (Bld) [Volume fraction] 40.7 % Normal 40.0-52.0 [facility] Comment on above: Performed By: #### B MP, CBC, ADIFF, ANEU, GFR #### [place] [id number] Hgb 13.9 G/dL Normal 13.0-17.5 [facility] Comment on above: Performed By: #### B MP, CBC, ADIFF, ANEU, GFR #### [place] [id number] MCH (RBC) [Entitic mass] 28.1 pg Normal 27.0-33.0 [facility] Comment on above: Performed By: #### B MP, CBC, ADIFF, ANEU, GFR #### [place] [address] MCHC 34.1 G/dL Normal 32.0-36.0 [facility] Comment on above: Performed By: #### B MP, CBC, ADIFF, ANEU, GFR #### [place] [address] MCV (RBC) [Entitic vol] 82.5 fL Normal 81.0-100.0 [facility] Comment on above: Performed By: #### B MP, CBC, ADIFF, ANEU, GFR #### [place] [address] Platelet 316 10 3/mcL Normal 150-450 [facility] Comment on above: Performed By: #### B MP, CBC, ADIFF, ANEU, GFR #### [place] [address] Platelet mean volume (Bld) [Entitic vol] 6.8 fL Normal 6.4-10.5 [facility] Comment on above: Performed By: #### B MP, CBC, ADIFF, ANEU, GFR #### [place] [address] RBC 4.94 10 6/mcL Normal 4.50-6.00 [facility] Comment on above: Performed By: #### B MP, CBC, ADIFF, ANEU, GFR #### [place] [id number] WBC 10.0 10 3/mcL Normal 4.5-10.8 [facility] Comment on above: Performed By: #### B MP, CBC, ADIFF, ANEU, GFR #### [place] [id number] LABORATORYOrdered By: SYSTEM SYSTEM on 08-27-2024 Anisocytosis Ql (Bld) 1+ *NA* (08/27/24 5:18 AM) Invalid Interpretation Code Workflow SS Platelets LM Ql (Bld) Normal *NA* (08/27/24 5:18 AM) Invalid Interpretation Code AH Workflow SS HHon 08-26-2024 Hematocrit (Bld) [Volume fraction] 40.9 % Normal 40.0-52.0 [facility] Comment on above: Performed By: #### H H #### [facility] [address] [place] [address] Hgb 13.6 G/dL Normal 13.0-17.5 [facility] Comment on above: Performed By: #### H H #### [facility] [address] [place] [address] LABORATORYOrdered By: Millie Lester on 08-26-2024 Blood Glucose Testing Reason Routine (08/26/24 5:41 AM) [facility] Glucose [Mass/Vol] 126 mg/dL High 82 - 115 mg/dL [facility] US ANESTHESIA BLOCKon 2024 US ANESTHESIA BLOCK ORIGINAL Images acquired, not reported on this accession number. Normal [facility] NM MYOCARDIAL SPECT STRESS/R ESTon 08-21-2024 NM MYOCARDIAL SPECT STRESS/REST ORIGINAL NM MYOCARDIAL SPECT STRESS/REST CLINICAL STATEMENT: Left bundle branch block, unspecified TECHNIQUE: Lexiscan dose:0.4 mg Radiopharmaceutical (stress): Tc-99m Sestamibi Dose:33.8 mCi Radiopharmaceutical (rest): Tc-99m Sestamibi Dose:11.2 mCi SPECT acquisition and processing Reconstruction and reorientation of SPECT images into short axis, vertical and horizontal long axis planes Quantitative LVEF assessment COMPARISON:None REPORT: Overall, image quality is good. Rotating planar images show no significant patient motion. SPECT perfusion images during rest and stress show relatively homogenous radiotracer uptake. No defects to suggest ischemia or infarction. SSS is 0. GATED SPECT images show normal LV size and function. LVEF calculated at 49% and 52%. IMPRESSION: 1. No evidence for ischemia. 2. No evidence for infarction. 3. Low-normal/mildly reduced LV systolic function. 4. No previous for comparison. Interpreted By: Dillan Puentes Preliminary Report By: iDllan Puentes Electronically Signed By: Dillan Puentes Dictated Date: 08/21/2024 9:27:24 AM Prelim Date: 08/21/2024 9:27:24 AM Sign Date: 08/21/2024 9:31:17 AM Ordering Provider:Rosita Capone [facility] .GFRon 08-05-2024 Estimated Glomerular Filtration Rate 75 ml/min/1.73sqm [facility] Comment on above: Result Comment: Stages of Chronic Kidney Disease (CKD) Stage Description eGFR(ml/min/1.73 sq.m.) CKD 1 Normal kidney function or >=90 normal kindney function with possible kidney damage (ex. Proteinuria) CKD 2 Kidney damage with mild loss 60-89 of kidney function CKD 3a Mild to moderate loss of kidney 45-59 function CKD 3b Moderate to severe loss of 30-44 of kindey function CKD 4 Severe loss of kidney function 15-29 CKD 5 Kidney failure <15 Note: (go live 2024) the eGFR calculation was updated to the 2020 CKD-EPI creatinine equation without a race factor to calculate the eGFR results. Performed By: #### Gary CARLIN BMP #### [address] [address] [facility] 08-05-2024 BUN/Creatinine Ratio 19.0 ratio Normal 10.0-22.0 [facility] Comment on above: Performed By: #### Gary CARLIN, BMP #### [address] [address] Calcium [Mass/Vol] 9.5 mg/dL Normal 8.7-10.4 [facility] Comment on above: Performed By: #### Gary , BMP #### [address] [address] Chloride [Moles/Vol] 108 mmol/L Normal 98-110 [facility] Comment on above: Performed By: #### Gary CARLIN, BMP #### [address] [address] CO2 [Moles/Vol] 29 mmol/L Normal 22-32 [facility] Comment on above: Performed By: #### G , BMP #### [address] [address] Creatinine [Mass/Vol] 1.05 mg/dL Normal 0.60-1.40 [facility] Comment on above: Result Comment: Test ing performed on [employer] analyzer using enzymatic creatinine methodology. Performed By: #### G , BMP #### [place] [phone] Electrolyte Balance 2.0 mEq/L Low 4.0-15.0 [facility] Comment on above: Performed By: #### Gary CARLIN, BMP #### [place] [phone] Glucose [Mass/Vol] 80 mg/dL Low 82-115 [facility] Comment on above: Performed By: #### Gary CARLIN, BMP #### [place] [phone] Potassium [Moles/Vol] 4.7 mmol/L Normal 3.5-5.0 [facility] Comment on above: Performed By: #### G , BMP #### [place] [phone] Sodium [Moles/Vol] 139 mmol/L Normal 136-145 [facility] Comment on above: Performed By: #### Gary CARLIN, BMP #### [place] [phone] Urea nitrogen [Mass/Vol] 20.0 mg/dL Normal 8.0-22.0 [facility] Comment on above: Performed By: #### G , BMP #### [address] [address] CBC W Auto Differential pane l (Bld)on 08-05-2024 Basophils (Bld) [#/Vol] 0.07 10*3/uL Normal <0.11 [facility] Comment on above: Order Comment: Speci men Type: BLOOD SPECIMEN Ordering Facility: [facility] Address: [address] [place] [address] Performed By: #### 5 7021-8 #### [facility] CLIA [id number] [address] [place] [address] [place] Basophils/100 WBC (Bld) 1.2 % Normal [facility] Comment on above: Order Comment: Speci men Type: BLOOD SPECIMEN Ordering Facility: [facility] Address: [address] [place] [address] Performed By: #### 5 7021-8 #### [facility] CLIA [id number] [address] [place] [address] [place] Differential cell count method Nom (Bld) Auto Normal [facility] Comment on above: Order Comment: Speci men Type: BLOOD SPECIMEN Ordering Facility: [facility] Address: [address] [place] [address] Performed By: #### 5 7021-8 #### [facility] CLIA [id number] [address] [place] [address] [place] Eosinophils (Bld) [#/Vol] 0.35 10*3/uL Normal <0.46 [facility] Comment on above: Order Comment: Speci men Type: BLOOD SPECIMEN Ordering Facility: [facility] Address: [address] [place] [address] Performed By: #### 5 7021-8 #### [facility] CLIA [id number] [address] [place] [address] [place] Eosinophils/100 WBC (Bld) 5.9 % Normal [facility] Comment on above: Order Comment: Speci men Type: BLOOD SPECIMEN Ordering Facility: [facility] Address: [address] [place] [address] Performed By: #### 5 7021-8 #### [facility] CLIA [id number] [address] [place] [address] [place] Erythrocyte distribution width (RBC) [Ratio] 20.2 % High 11.5-15.0 [facility] Comment on above: Order Comment: Speci men Type: BLOOD SPECIMEN Ordering Facility: [facility] Address: [address] [place] [address] Performed By: #### 5 7021-8 #### [facility] CLIA [id number] [address] [place] [address] [place] Hematocrit (Bld) [Volume fraction] 43.1 % Normal 39.0-51.0 [facility] Comment on above: Order Comment: Speci men Type: BLOOD SPECIMEN Ordering Facility: [facility] Address: [address] [place] [address] Performed By: #### 5 7021-8 #### [facility] CLIA [id number] [address] [place] [address] [place] Hemoglobin (Bld) [Mass/Vol] 13.6 g/dL Normal 13.0-17.0 [facility] Comment on above: Order Comment: Speci men Type: BLOOD SPECIMEN Ordering Facility: [facility] Address: [address] [place] [address] Performed By: #### 5 7021-8 #### [facility] CLIA [id number] [address] [place] [address] [place] Immature granulocytes (Bld) [#/Vol] 0.03 10*3/uL Normal <0.10 [facility] Comment on above: Order Comment: Speci men Type: BLOOD SPECIMEN Ordering Facility: [facility] Address: [address] [place] [address] Performed By: #### 5 7021-8 #### [facility] CLIA [id number] [address] [place] [address] [place] Immature granulocytes/100 WBC (Bld) 0.5 % Normal [facility] Comment on above: Order Comment: Speci men Type: BLOOD SPECIMEN Ordering Facility: [facility] Address: [address] [place] [address] Performed By: #### 5 7021-8 #### [facility] CLIA [id number] [address] [place] [address] [place] Lymphocytes (Bld) [#/Vol] 1.45 10*3/uL Normal 1.00-4.00 [facility] Comment on above: Order Comment: Speci men Type: BLOOD SPECIMEN Ordering Facility: [facility] Address: [address] [place] [address] Performed By: #### 5 7021-8 #### [facility] CLIA [id number] [address] [place] [address] [place] Lymphocytes/100 WBC (Bld) 24.3 % Normal [facility] Comment on above: Order Comment: Speci men Type: BLOOD SPECIMEN Ordering Facility: [facility] Address: [address] [place] [address] Performed By: #### 5 7021-8 #### [facility] CLIA [id number] [address] [place] [address] [place] MCH (RBC) [Entitic mass] 25.8 pg Low 26.0-34.0 [facility] Comment on above: Order Comment: Speci men Type: BLOOD SPECIMEN Ordering Facility: [facility] Address: [address] [place] [address] Performed By: #### 5 7021-8 #### [facility] CLIA [id number] [address] [place] [address] [place] MCHC (RBC) [Mass/Vol] 31.6 g/dL Normal 30.5-36.0 [facility] Comment on above: Order Comment: Speci men Type: BLOOD SPECIMEN Ordering Facility: [facility] Address: [address] [place] [address] Performed By: #### 5 7021-8 #### [facility] CLIA [id number] [address] [place] [address] [place] MCV (RBC) [Entitic vol] 81.6 fL Normal 80.0-100.0 [facility] Comment on above: Order Comment: Speci men Type: BLOOD SPECIMEN Ordering Facility: [facility] Address: [address] [place] [address] Performed By: #### 5 7021-8 #### [facility] CLIA [id number] [address] [place] [address] [place] Monocytes (Bld) [#/Vol] 0.77 10*3/uL Normal <0.87 [facility] Comment on above: Order Comment: Speci men Type: BLOOD SPECIMEN Ordering Facility: [facility] Address: [address] [place] [address] Performed By: #### 5 7021-8 #### [facility] CLIA [id number] [address] [place] [address] [place] Monocytes/100 WBC (Bld) 12.9 % Normal [facility] Comment on above: Order Comment: Speci men Type: BLOOD SPECIMEN Ordering Facility: [facility] Address: [address] [place] [address] Performed By: #### 5 7021-8 #### [facility] CLIA [id number] [address] [place] [address] [place] Neutrophils (Bld) [#/Vol] 3.29 10*3/uL Normal 1.45-7.50 [facility] Comment on above: Order Comment: Speci men Type: BLOOD SPECIMEN Ordering Facility: [facility] Address: [address] [place] [address] Performed By: #### 5 7021-8 #### [facility] CLIA [id number] [address] [place] [address] [place] Neutrophils/100 WBC (Bld) 55.2 % Normal [facility] Comment on above: Order Comment: Speci men Type: BLOOD SPECIMEN Ordering Facility: [facility] Address: [address] [place] [address] Performed By: #### 5 7021-8 #### [facility] CLIA [id number] [address] [place] [address] [place] Nucleated RBC (Bld) [#/Vol] 10*3/uL Normal <0.01 [facility] Comment on above: Order Comment: Speci men Type: BLOOD SPECIMEN Ordering Facility: [facility] Address: [address] [place] [address] Performed By: #### 5 7021-8 #### [facility] CLIA [id number] [address] [place] [address] [place] Nucleated RBC/100 WBC (Bld) [Ratio] 0.0 /100 WBC Normal [facility] Comment on above: Order Comment: Speci men Type: BLOOD SPECIMEN Ordering Facility: [facility] Address: [address] [place] [address] Performed By: #### 5 7021-8 #### [facility] CLIA [id number] [address] [place] [address] [place] Platelet mean volume (Bld) [Entitic vol] 8.6 fL Low 9.0-12.7 [facility] Comment on above: Order Comment: Speci men Type: BLOOD SPECIMEN Ordering Facility: [facility] Address: [address] [place] [address] Performed By: #### 5 7021-8 #### [facility] CLIA [id number] [address] [place] [address] [place] Platelets (Bld) [#/Vol] 295 10*3/uL Normal 150-400 [facility] Comment on above: Order Comment: Speci men Type: BLOOD SPECIMEN Ordering Facility: [facility] Address: [address] [place] [address] Performed By: #### 5 7021-8 #### [facility] CLIA [id number] [address] [place] [address] [place] RBC (Bld) [#/Vol] 5.28 10*6/uL Normal 4.20-6.00 [facility] Comment on above: Order Comment: Speci men Type: BLOOD SPECIMEN Ordering Facility: [facility] Address: [address] [place] [address] Performed By: #### 5 7021-8 #### [facility] CLIA [id number] [address] [place] [address] [place] WBC (Bld) [#/Vol] 5.96 10*3/uL Normal 3.70-11.00 [facility] Comment on above: Order Comment: Speci men Type: BLOOD SPECIMEN Ordering Facility: [facility] Address: [address] [place] [address] Performed By: #### 5 7021-8 #### [facility] CLIA [id number] [address] [place] [address] [place] Ferritin SerPl-mCncon 2024 Ferritin [Mass/Vol] 68.2 ng/mL Normal 30.3-565.7 [facility] Comment on above: Order Comment: Speci men Type: BLOOD SPECIMEN Ordering Facility: [facility] Address: [address] [place] [address] Performed By: #### 2 276-4, 98441-6 #### [facility] CLIA [id number] [address] [place] [address] [place] Iron and Iron binding capaci ty panelon 08-05-2024 Iron [Mass/Vol] 36 ug/dL Low 41-186 [facility] Comment on above: Order Comment: Speci men Type: BLOOD SPECIMEN Ordering Facility: [facility] Address: [address] [place] [address] Performed By: #### 2 276-4, 95426-0 #### [facility] CLIA [id number] [address] [place] [address] STATES [facility] Iron binding capacity [Mass/Vol] 299 ug/dL Normal 232-386 [facility] Comment on above: Order Comment: Speci men Type: BLOOD SPECIMEN Ordering Facility: [facility] Address: [address] [place] [address] Performed By: #### 2 276-4, 74865-3 #### [facility] CLIA [id number] [address] [place] [address] [place] OF [facility] Iron/TIBC [Molar ratio] 12.0 % Low 15.0-57.0 [facility] Comment on above: Order Comment: Isatu men Type: BLOOD SPECIMEN Ordering Facility: [facility] Address: [address] [place] [address] Performed By: #### 2 276-4, 98987-3 #### [facility] CLIA [id number] [address] [place] [address] OF [facility] LABORATORYOrdered By: SYSTEM SYSTEM on 08-05-2024 Calcium [Mass/Vol] 9.5 mg/dL Normal 8.7 - 10. 4 mg/dL ADM SS Chloride [Moles/Vol] 108 mmol/L Normal 98 - 11 0 mEq/L AH ADM SS CO2 [Moles/Vol] 29 mmol/L Normal 22 - 32 mEq/L ADM SS Creatinine [Mass/Vol] 1.05 mg/dL Normal 0.60 - 1.40 mg/dL ADM SS Comment on above: Interpretive Data: T esting performed on [employer] analyzer using enzymatic creatinine methodology. Electrolyte Balance 2.0 mEq/L Low 4.0 - 15 .0 mEq/L AH ADM SS Estimated Glomerular Filtration Rate 75 ml/min/1.73sqm Invalid Interpretation Code Chemistry S Comment on above: Interpretive Data: Stages of Chronic Kidney Disease (CKD) Stage Description eGFR(ml/min/1.73 sq.m.) CKD 1 Normal kidney function or >=90 normal kindney function with possible kidney damage (ex. Proteinuria) CKD 2 Kidney damage with mild loss 60-89 of kidney function CKD 3a Mild to moderate loss of kidney 45-59 function CKD 3b Moderate to severe loss of 30-44 of kindey function CKD 4 Severe loss of kidney function 15-29 CKD 5 Kidney failure <15 Note: (go live 2024) the eGFR calculation was updated to the 2020 CKD-EPI creatinine equation without a race factor to calculate the eGFR results. Glucose [Mass/Vol] 80 mg/dL Low 82 - 115 mg/dL AH ADM SS Potassium [Moles/Vol] 4.7 mmol/L Normal 3.5 - 5.0 mEq/L AH ADM SS Sodium [Moles/Vol] 139 mmol/L Normal 136 - 145 mEq/L AH ADM SS Urea nitrogen [Mass/Vol] 20.0 mg/dL Normal 8.0 - 22.0 mg/dL AH ADM SS Urea nitrogen/Creatinine [Mass ratio] 19.0 ratio Normal 10.0 - 22.0 ratio AH ADM SS CNPNon 08-03-2024 CNPN Telephone (SHARON) -- RADHA MENG ([id number]) 1950 M Date Time Provider Department 08/03/24 CATHIE SALAMANCA During your visit today, we recorded the following information about you: Anaya Keene 08/03/2024 1:05 PM Signed Spouse called stating that patient had contacted surgeon to remove part of his colon due to test results. His surgery is scheduled for 07/27. Patient is having lab for provider outside of [facility] tomorrow or 08/05. Spouse is asking if 08/05 lab and 08/13 office visit are needed for now or wait until after surgery. Please advise. Aundrea Dey LPN 08/03/2024 2:35 PM Addendum I called and spoke with Dr. Proctor's office, patient had colonoscopy on 07/09/2024. They will send colonoscopy and path report. They referred him to Dr. Moi Corea. I will request the last OV note as well. Aundrea Dey LPN OV note requested from Dr. Moi Corea. MIKE Singleton Brianna 08/07/2024 3:11 PM Signed Called pts spouse to review labs. Overall Hgb has improved. Iron is sufficient. 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 They are seeing a colorectal surgeon at [facility] with plans for surgery on 08/26. Per patients spouse, thus far CT C/A/P have been clear. Needs a stress test prior to surgery. If needed they would like to see Dr Cavazos. Discussed OK to cancel follow up OV with me scheduled for next week. MONA likely caused by colon ca. Reviewed may require addition iron following surgery but ok to follow up after. Advised to call with any questions or concerns. Cathie Salamanca APRN.Anaya Laguna 08/07/2024 3:24 PM Signed OV canceled Aundrea Dey LPN 08/07/2024 3:52 PM Signed Patient saw colorectal surgeon at [facility] instead of doc listed below. Aundrea Dey LPN Allergies As of Date: 08/03/2024 Noted Allergy Reaction ADHESIVE TAPE-SILICONES 05/22/2024 2 - Rash AMOXICILLIN 05/22/2024 2 - Rash Date Reviewed: 06/05/2024 Reviewed by: Suzy Daily, RN - Fully Assessed Reason for Visit: Patient Update [1234] Prescriptions as of 08/07/2024 - tamsulosin (FLOMAX) 0.4 mg Take 0.4 mg by mouth once daily. - finasteride (PROSCAR) 5 mg tablet Take 5 mg by mouth once daily. - aspirin, enteric coated (ASPIRIN, ENTERIC COATED) 81 mg EC tablet Take 81 mg by mouth every other day. - glucosamine HCl/chondroitin hall (GLUCOSAMINE-CHONDROITIN ORAL) Take 1 tablet by mouth once daily. - multivitamin tablet Take 1 tablet by mouth once daily. - fluticasone (FLONASE ALLERGY RELIEF) 50 mcg/actuation nasal spray Use 1 [place] in each nostril once daily as needed. - OTC PRODUCT Standard Process Prosymbiotic: Take one tablet by mouth once daily. - ascorbic acid, vitamin C, (VITAMIN C) 500 mg tablet Take 500 mg by mouth once daily. - ferrous sulfate (IRON, FERROUS SULFATE,) 325 mg (65 mg iron) tablet Take 325 mg by mouth once daily. Problem List As Of Date 08/03/2024 Noted Resolved Iron deficiency anemia secondary to inadequate *05/22/2024 Encounter Status:Closed by DEONDRE AUNDREA on 08/07/24 Normal [facility] CT THORAX W/ CONTRASTon 05-0 CT THORAX W/ CONTRAST ORIGINAL EXAMINATION: CT OF THE CHEST WITH CONTRAST 07/29/2024 11:56 am TECHNIQUE: CT of the chest was performed with the administration of intravenous contrast. Multiplanar reformatted images are provided for review. Automated exposure control, iterative reconstruction, and/or weight based adjustment of the mA/kV was utilized to reduce the radiation dose to as low as reasonably achievable. COMPARISON: None. HISTORY: ORDERING SYSTEM PROVIDED HISTORY: Reason for Exam: colon cancer; ruleout mets FINDINGS: Recist 1.1: POTENTIAL TARGET TUMOR LESIONS (maximum 5 lesions, maximum 2 per organ, longest dimension in axial plane reported, >10 mm, reproducible lesions): None. POTENTIAL TARGET LYMPH NODES (>15 mm short axis, maximum 2): None. NONTARGET LESIONS (Definite tumor lesions, lymph nodes 10-14 mm short axis, immeasurable lesions such as lymphangitic involvement, ascites, pleural effusions, etc.): None. Same day CT abdomen and pelvis is reported separately. Mediastinum: There are no pathologically enlarged mediastinal or hilar lymph nodes. The heart size is normal. The aorta and main pulmonary artery are normal in caliber. There is no pericardial effusion. Lungs/pleura: There is no pleural effusion, pneumothorax, or focal consolidation. Mild bibasilar dependent atelectasis. A 2 mm nodule is seen in the right upper lobe on image 25 of series 3. No other nodule or mass is seen.. Soft Tissues/Bones: Mild multilevel degenerative changes of the spine are noted. No acute osseous abnormality is seen. No aggressive osseous lesion is visualized. There are no pathologically enlarged axillary or supraclavicular lymph nodes. IMPRESSION: A 2 mm right upper lobe nodule is seen. Attention on follow-up given history of cancer. No other nodule or mass is visualized within thorax. I have personally reviewed the images of this examination and agree with the resident's findings and interpretation. Interpreted by: Heladio Roberts MD Preliminary Report By: Keagan Werner Electronically signed By Heladio Roberts MD Dictated Date: 07/31/2024 9:42:51 AM Prelim Date: 07/31/2024 9:53:50 AM Sign Date: 07/31/2024 9:53:50 AM Ordering Provider: CELIA Alarcon [facility] CT ABDOMEN/PELVIS W/CONTRAST on 07-29-2024 CT ABDOMEN/PELVIS W/CONTRAST ORIGINAL EXAMINATION: CT OF THE ABDOMEN AND PELVIS WITH CONTRAST07/29/2024 11:55 am TECHNIQUE: CT of the abdomen and pelvis was performed with the administration of intravenous contrast. Multiplanar reformatted images are provided for review. Automated exposure control, iterative reconstruction, and/or weight based adjustment of the mA/kV was utilized to reduce the radiation dose to as low as reasonably achievable. COMPARISON: None HISTORY: ORDERING SYSTEM PROVIDED HISTORY: Reason for Exam: colon cancer; ruleout mets FINDINGS: Recist 1.1: POTENTIAL TARGET TUMOR LESIONS (maximum 5 lesions, maximum 2 per organ, longest dimension in axial plane reported, >10 mm, reproducible lesions): None. POTENTIAL TARGET LYMPH NODES (>15 mm short axis, maximum 2): None. NONTARGET LESIONS (Definite tumor lesions, lymph nodes 10-14 mm short axis, immeasurable lesions such as lymphangitic involvement, ascites, pleural effusions, etc.): None. Same day CT chest is reported separately. The included lung bases are clear. There is no visible pleural or pericardial effusion. The heart is normal in size. The liver, spleen, adrenal glands, and pancreas are within normal limits. No filling defects seen in the gallbladder. The kidneys enhance symmetrically. A punctate stone is seen in the interpolar region of the right kidney. A 1.3 cm right renal cyst is present. There are bilateral parapelvic cysts. There are multiple left parapelvic cysts with the largest measuring 3.9 cm.. A cystic lesion at the inferior pole right kidney is 22 Hounsfield units and 11 mm. A 5 cm nonobstructive stone is seen in the interpolar region of the left kidney. There is also an adjacent nonobstructive punctate stone. The large and small bowel demonstrate no obstruction. There is a short segment of bowel wall thickening within the proximal/mid transverse colon. There are mild adjacent infiltrative changes. This may relate to the area of recently diagnosed colon cancer. No free intraperitoneal fluid or gas is identified. The aorta is normal in caliber. There is mild atherosclerosis of the larger arteries. There is no lymphadenopathy. No filling defects seen in the urinary bladder. The prostate is enlarged. There is no fracture or aggressive osseous lesion. Degenerative changes are present in the spine and hips. There are nonspecific sclerotic foci within the left iliac and right pubic bones. There are bilateral fat containing inguinal hernias. IMPRESSION: There is a short segment of wall thickening within the proximal/mid transverse colon. This may relate to the area of recently diagnosed colon cancer or focal muscular contraction. No other evidence for metastatic disease within the abdomen. Nonobstructive bilateral nephrolithiasis. Mildly complex right renal cyst. Ultrasound correlation advised Other chronic findings as described above. I have personally reviewed the images of this examination and agree with the resident's findings and interpretation. Interpreted by: Andi Franklin MD Preliminary Report By: Keagan Werner Electronically signed By Andi Franklin MD Dictated Date: 07/29/2024 1:07:31 PM Prelim Date: 07/29/2024 2:51:26 PM Sign Date: 07/29/2024 2:51:26 PM Ordering Provider: CELIA Alarcon [facility] Venous duplex ultrasound rep ortOrdered By: Uri Mendosa on 07-16-2024 US Vein [facility] [address] [place] [address] Venous Duplex US, Unilateral 07/15/24 1501 MR#: [id number] Acct: [id number] Name: RADHA MENG Rep #:[id number] : 1950 74 From: Uri Vaca Attending Dr: Flavia Jacome NP-C Status: REG CLI Ordering Dr: Flavia Jacome CLINICAL REVIEWERJulio CC Date: 07/15/24 Location: [facility] Sex: M C Admitted: Reason For Study Reason For Study: Right arm pain Right Proximal Right jugular vein is spontaneous, widely patent, phasic, with no intraluminal echogenicity noted. Right subclavian vein is spontaneous, widely patent, phasic, with no intraluminal echogenicity noted. Right Lower Arm Right radial vein is compressible. Right ulnar vein is compressible. Right Arm Right axillary vein is spontaneous, patent, phasic, competent, compressible and demonstrates augmentation. Right brachial vein is compressible. Right cephalic vein is compressible. Right basilic vein is compressible. Procedure This was a unilateral right upper extremity venous doppler examination. A preliminary report was called and/or faxed to [facility]. VL/Venous Duplex US, Unilateral Interpretation Summary Deep veins of the right upper extremity are patent and compressible segmentally.There is no evidence of deep vein thrombosis. Superficial veins of the right upper extremity are patent and compressible segmentally. There is no evidence of superficial vein thrombosis. Ordering Physician: Flavia Jacome Referring Physician: Rosita Capone M.D. Performed By: Alba Hernandez RVT ??? 07/16/241657 Date _ Uri Mendosa MD CC: CLINICAL REVIEWER-C Flavia Jacome; Dr. Rosita Capone, DO ~ Date Dictated: 07/15/24 1501 Date Transcribed: 07/16/241657 Psych Coordinator: Signed [facility] Work Phone: Venous Duplex US, Unilateral on 07-15-2024 Venous Duplex US, Unilateral [facility] [address] [place] [address] Venous Duplex US, Unilateral 07/15/24 1501 MR#: [id number] Acct: [id number] Name: RADHA MENG Rep #: [id number] : 1950 74 From: Uri Mendosa MD Attending Dr: SKY Frye Status: REG CLI Ordering Dr: Flavia Jacome Date: 07/15/24 Location: CVS Sex: M C Admitted: Reason For Study Reason For Study: Right arm pain Right Proximal Right jugular vein is spontaneous, widely patent, phasic, with no intraluminal echogenicity noted. Right subclavian vein is spontaneous, widely patent, phasic, with no intraluminal echogenicity noted. Right Lower Arm Right radial vein is compressible. Right ulnar vein is compressible. Right Arm Right axillary vein is spontaneous, patent, phasic, competent, compressible and demonstrates augmentation. Right brachial vein is compressible. Right cephalic vein is compressible. Right basilic vein is compressible. Procedure This was a unilateral right upper extremity venous doppler examination. A preliminary report was called and/or faxed to [facility] SWANSON. VL/Venous Duplex US, Unilateral Interpretation Summary Deep veins of the right upper extremity are patent and compressible segmentally. There is no evidence of deep vein thrombosis. Superficial veins of the right upper extremity are patent and compressible segmentally. There is no evidence of superficial vein thrombosis. Ordering Physician: Flavia Jacome Referring Physician: Rosita Capone M.D. Performed By: Alba Hernandez RVT ??? 07/16/241657 Date Uri Mendosa MD CC: CLINICAL REVIEWER-C Flavia Jacome; Dr. Rosita Capone DO Date Dictated: 07/15/24 1501 Date Transcribed: 07/16/241657 Psych Coordinator: [facility] Telephone (Symtext) -- RADHA MENG ([id number]) 1950 M Date Time Provider Department 07/14/24 CATHIE SALAMANCA During your visit today, we recorded the following information about you: Anaya Keene 07/14/2024 9:47 AM Signed Spouse called asking if there was to be any follow ups from Iron infusion for patient. Unable to find anything in AVS. Please advise. Cathie Salamanca 07/14/2024 10:16 AM Signed Yes please! CBC, iron studies, ferritin (ordered) 8 - 12 weeks out from last IV iron dose so around first week of July with OV about a week after. Orders signed. Could someone please obtain records from Dr Proctor's office prior to appt with me please? Thank you! Lizabeth Adrian LPN 07/14/2024 10:[address] Proctor's note. Please assist in scheduling below per MIKE Stringer APRN, Naomi 07/14/2024 10:50 AM Signed Spoke w pt and he is scheduled for lab and follow up. Charlie Douglas Allergies As of Date: 07/14/2024 Noted Allergy Reaction ADHESIVE TAPE-SILICONES 05/22/2024 2 - Rash AMOXICILLIN 05/22/2024 2 - Rash Date Reviewed: 06/05/2024 Reviewed by: Suzy Daily, RN - Fully Assessed Reason for Visit: Patient Question [5614] Primary Visit Diagnosis:Iron deficiency anemia secondary to inadequate dietary iron intake [D50.8] Order(s):COMPLETE BLOOD COUNT AND DIFFERENTIAL [SQCBCDIF] Order #: [id number] FUTURE FERRITIN [SQFERR] Order #: [id number] FUTURE IRON AND TIBC [SQIRON] Order #: [id number] FUTURE Prescriptions as of 07/14/2024 - tamsulosin (FLOMAX) 0.4 mg Take 0.4 mg by mouth once daily. - finasteride (PROSCAR) 5 mg tablet Take 5 mg by mouth once daily. - aspirin, enteric coated (ASPIRIN, ENTERIC COATED) 81 mg EC tablet Take 81 mg by mouth every other day. - glucosamine HCl/chondroitin hall (GLUCOSAMINE-CHONDROITIN ORAL) Take 1 tablet by mouth once daily. - multivitamin tablet Take 1 tablet by mouth once daily. - fluticasone (FLONASE ALLERGY RELIEF) 50 mcg/actuation nasal spray Use 1 [place] in each nostril once daily as needed. - OTC PRODUCT Standard Process Prosymbiotic: Take one tablet by mouth once daily. - ascorbic acid, vitamin C, (VITAMIN C) 500 mg tablet Take 500 mg by mouth once daily. - ferrous sulfate (IRON, FERROUS SULFATE,) 325 mg (65 mg iron) tablet Take 325 mg by mouth once daily. Problem List As Of Date 07/14/2024 Noted Resolved Iron deficiency anemia secondary to inadequate *05/22/2024 Encounter Status:Closed by CHARLIE DOUGLAS on 07/14/24 Normal [facility] PSA, total screeningOrdered By: Amanda White on 06-16-2024 Prostate Specific Antigen Screen 1.40 ng/mL 0.02-4.00 [facility] Comment on above: This test was perfor med using the [employer] tPSA method. Measured values of a patient sample can vary depending on the testing procedure used. PSA values determined on patient samples by different testing procedures cannot be used interchangeably. If there is a change in PSA assays while monitoring therapy, sequential testing should be performed to confirm baseline values. PSA,Total - Annual Screenon 06-16-2024 PSA,TOT SCREEN 1.40 ng/mL Normal 0.02-4.00 [facility] Comment on above: Result Comment: This test was performed using the [employer] tPSA method. Measured values of a patient??sample can vary depending on the testing procedure used. PSA values determined on patient samples by different testing procedures cannot be used interchangeably. If there is a change in PSA assays while monitoring therapy, sequential testing should be performed to confirm baseline values. Performed By: #### L 501.9910 #### [facility] [address] [place], [address] CBC W Ordered Manual Differe ntial panel (Bld)on 06-03-2024 Basophils (Bld) [#/Vol] 0.06 10*3/uL Normal <0.11 [facility] Comment on above: Order Comment: Speci men Type: BLOOD SPECIMEN Ordering Facility: [facility] Address: [address] [place] [address] Performed By: #### 5 7782-5 #### [facility] CLIA [id number] [address] [place] [address] [place] [facility] CLIA [id number] [address] [place] [address] [place] #### STFREV #### [facility] CLIA [id number] [address] [place] [address] [place] Basophils/100 WBC (Bld) 1.1 % Normal [facility] Comment on above: Order Comment: Speci men Type: BLOOD SPECIMEN Ordering Facility: [facility] Address: [address] [place] [address] Performed By: #### 5 7782-5 #### [facility] CLIA [id number] [address] [place] [address] [place] [facility] CLIA [id number] [address] [place] [address] [place] #### STFREV #### [facility] CLIA [id number] [address] [place] [address] [place] Differential cell count method Nom (Bld) Auto Normal [facility] Comment on above: Order Comment: Speci men Type: BLOOD SPECIMEN Ordering Facility: [facility] Address: [address] [place] [address] Performed By: #### 5 7782-5 #### [facility] CLIA [id number] [address] [place] [address] [place] [facility] CLIA [id number] [facility] [place] [id number] [place] #### STFREV #### [facility] CLIA [id number] [address] [place], [place] [address] [place] Eosinophils (Bld) [#/Vol] 0.28 10*3/uL Normal <0.46 [facility] Comment on above: Order Comment: Speci men Type: BLOOD SPECIMEN Ordering Facility: [facility] Address: [address] [place] [address] Performed By: #### 5 7782-5 #### [facility] CLIA [id number] [address] [place] [address] [place] [facility] CLIA [id number] [address] [place] [address] [place] #### STFREV #### [facility] CLIA [id number] [address] [place], [place] [address] [place] Eosinophils/100 WBC (Bld) 5.0 % Normal [facility] Comment on above: Order Comment: Speci men Type: BLOOD SPECIMEN Ordering Facility: [facility] Address: [address] [place], [place] [address] Performed By: #### 5 7782-5 #### [facility] CLIA [id number] [address] [place] [address] [place] [facility] CLIA [id number] [address] [place] [address] [place] #### STFREV #### [facility] CLIA [id number] [address] [place], [place] [address] [place] Erythrocyte distribution width (RBC) [Ratio] 30.4 % High 11.5-15.0 [facility] Comment on above: Order Comment: Speci men Type: BLOOD SPECIMEN Ordering Facility: [facility] Address: [address] [place], [place] [address] Performed By: #### 5 7782-5 #### [facility] CLIA [id number] [address] [place] [address] [place] [facility] CLIA [id number] [address] [place] [address] [place] #### STFREV #### [facility] CLIA [id number] [facility] [place] [id number] [place] Hematocrit (Bld) [Volume fraction] 35.2 % Low 39.0-51.0 [facility] Comment on above: Order Comment: Speci men Type: BLOOD SPECIMEN Ordering Facility: [facility] Address: [address] [place] [address] Performed By: #### 5 7782-5 #### [facility] CLIA [id number] [address] [place] [address] [place] [facility] CLIA [id number] [address] [place] [address] [place] #### STFREV #### [facility] CLIA [id number] [address] [place], [place] [address] [place] Hemoglobin (Bld) [Mass/Vol] 9.6 g/dL Low 13.0-17.0 [facility] Comment on above: Order Comment: Speci men Type: BLOOD SPECIMEN Ordering Facility: [facility] Address: [address] [place], [place] [address] Performed By: #### 5 7782-5 #### [facility] CLIA [id number] [address] [place] [address] [place] [facility] CLIA [id number] [address] [place] [address] [place] #### STFREV #### [facility] CLIA [id number] [address] [place] [address] [place] Immature granulocytes (Bld) [#/Vol] 0.03 10*3/uL Normal <0.10 [facility] Comment on above: Order Comment: Speci men Type: BLOOD SPECIMEN Ordering Facility: [facility] Address: [address] [place] [address] Performed By: #### 5 7782-5 #### [facility] CLIA [id number] [address] [place] [address] [place] [facility] CLIA [id number] [address] [place] [address] [place] #### STFREV #### [facility] CLIA [id number] [address] [place] [address] [place] Immature granulocytes/100 WBC (Bld) 0.5 % Normal [facility] Comment on above: Order Comment: Speci men Type: BLOOD SPECIMEN Ordering Facility: [facility] Address: [address] [place] [address] Performed By: #### 5 7782-5 #### [facility] CLIA [id number] [address] [place] [address] [place] [facility] CLIA [id number] [address] [place] [address] [place] #### STFREV #### [facility] CLIA [id number] [address] [place] [address] [place] Lymphocytes (Bld) [#/Vol] 1.21 10*3/uL Normal 1.00-4.00 [facility] Comment on above: Order Comment: Speci men Type: BLOOD SPECIMEN Ordering Facility: [facility] Address: [address] [place] [address] Performed By: #### 5 7782-5 #### [facility] CLIA [id number] [address] [place] [address] [place] [facility] CLIA [id number] [address] [place] [address] [place] #### STFREV #### [facility] CLIA [id number] [address] [place] [address] [place] Lymphocytes/100 WBC (Bld) 21.5 % Normal [facility] Comment on above: Order Comment: Speci men Type: BLOOD SPECIMEN Ordering Facility: [facility] Address: [address] [place] [address] Performed By: #### 5 7782-5 #### [facility] CLIA [id number] [address] [place] [address] [place] [facility] CLIA [id number] [address] [place] [address] [place] #### STFREV #### [facility] CLIA [id number] [address] [place] [address] [place] MCH (RBC) [Entitic mass] 19.1 pg Low 26.0-34.0 [facility] Comment on above: Order Comment: Speci men Type: BLOOD SPECIMEN Ordering Facility: [facility] Address: [address] [place] [address] Performed By: #### 5 7782-5 #### [facility] CLIA [id number] [address] [place] [address] [place] [facility] CLIA [id number] [address] [place] [address] [place] #### STFREV #### [facility] CLIA [id number] [address] [place] [address] [place] MCHC (RBC) [Mass/Vol] 27.3 g/dL Low 30.5-36.0 [facility] Comment on above: Order Comment: Speci men Type: BLOOD SPECIMEN Ordering Facility: [facility] Address: [address] [place] [address] Performed By: #### 5 7782-5 #### [facility] CLIA [id number] [address] [place] [address] [place] [facility] CLIA [id number] [address] [place] [address] [place] #### STFREV #### [facility] CLIA [id number] [address] [place] [address] [place] MCV (RBC) [Entitic vol] 70.1 fL Low 80.0-100.0 [facility] Comment on above: Order Comment: Speci men Type: BLOOD SPECIMEN Ordering Facility: [facility] Address: [address] [place] [address] Performed By: #### 5 7782-5 #### [facility] CLIA [id number] [address] [place] [address] [place] [facility] CLIA [id number] [address] [place] [address] [place] #### STFREV #### [facility] CLIA [id number] [address] [place] [address] [place] Monocytes (Bld) [#/Vol] 0.69 10*3/uL Normal <0.87 [facility] Comment on above: Order Comment: Speci men Type: BLOOD SPECIMEN Ordering Facility: [facility] Address: [address] [place] [address] Performed By: #### 5 7782-5 #### [facility] CLIA [id number] [address] [place] [address] [place] [facility] CLIA [id number] [address] [place] [address] [place] #### STFREV #### [facility] CLIA [id number] [address] [place] [address] [place] Monocytes/100 WBC (Bld) 12.3 % Normal [facility] Comment on above: Order Comment: Speci men Type: BLOOD SPECIMEN Ordering Facility: [facility] Address: [address] [place] [address] Performed By: #### 5 7782-5 #### [facility] CLIA [id number] [address] [place] [address] [place] [facility] CLIA [id number] [address] [place] [address] [place] #### STFREV #### [facility] CLIA [id number] [address] [place] [address] [place] Neutrophils (Bld) [#/Vol] 3.36 10*3/uL Normal 1.45-7.50 [facility] Comment on above: Order Comment: Speci men Type: BLOOD SPECIMEN Ordering Facility: [facility] Address: [address] [place] [address] Performed By: #### 5 7782-5 #### [facility] CLIA [id number] [address] [place] [address] [place] [facility] CLIA [id number] [address] [place] [address] [place] #### STFREV #### [facility] CLIA [id number] [address] [place], [place] [address] [place] Neutrophils/100 WBC (Bld) 59.6 % Normal [facility] Comment on above: Order Comment: Speci men Type: BLOOD SPECIMEN Ordering Facility: [facility] Address: [address] [place] [id number] Performed By: #### 5 7782-5 #### [facility] CLIA [id number] [address] [place] [address] [place] [facility] CLIA [id number] [address] [place] [address] [place] #### STFREV #### [facility] CLIA [id number] [address] [place], [place] [address] [place] Nucleated RBC (Bld) [#/Vol] 10*3/uL Normal <0.01 [facility] Comment on above: Order Comment: Speci men Type: BLOOD SPECIMEN Ordering Facility: [facility] Address: [address] [place] [address] Performed By: #### 5 7782-5 #### [facility] CLIA [id number] [address] [place] [address] [place] [facility] CLIA [id number] [address] [place] [address] [place] #### STFREV #### [facility] CLIA [id number] [address] [place], [place] [address] [place] Nucleated RBC/100 WBC (Bld) [Ratio] 0.0 /100 WBC Normal [facility] Comment on above: Order Comment: Speci men Type: BLOOD SPECIMEN Ordering Facility: [facility] Address: [address] [place] [id number] Performed By: #### 5 7782-5 #### [facility] CLIA [id number] [address] [place] [address] [place] [facility] CLIA [id number] [address] [place] [address] [place] #### STFREV #### [facility] CLIA [id number] [address] [place] [address] [place] Platelet mean volume (Bld) [Entitic vol] 8.4 fL Low 9.0-12.7 [facility] Comment on above: Order Comment: Speci men Type: BLOOD SPECIMEN Ordering Facility: [facility] Address: [address] [place] [address] Performed By: #### 5 7782-5 #### [facility] CLIA [id number] [address] [place] [address] [place] [facility] CLIA [id number] [address] [place] [address] [place] #### STFREV #### [facility] CLIA [id number] [address] [place] [address] [place] Platelets (Bld) [#/Vol] 357 10*3/uL Normal 150-400 [facility] Comment on above: Order Comment: Speci men Type: BLOOD SPECIMEN Ordering Facility: [facility] Address: [address] [place] [address] Performed By: #### 5 7782-5 #### [facility] CLIA [id number] [address] [place] [address] [place] [facility] CLIA [id number] [address] [place] [address] [place] #### STFREV #### [facility] CLIA [id number] [address] [place] [address] [place] RBC (Bld) [#/Vol] 5.02 10*6/uL Normal 4.20-6.00 [facility] Comment on above: Order Comment: Speci men Type: BLOOD SPECIMEN Ordering Facility: [facility] Address: [address] [place] [address] Performed By: #### 5 7782-5 #### [facility] CLIA [id number] [address] [place] [address] [place] [facility] CLIA [id number] [address] [place], [place] [address] [place] #### STFREV #### [facility] CLIA [id number] [address] [place], [place] [address] [place] WBC (Bld) [#/Vol] 5.63 10*3/uL Normal 3.70-11.00 [facility] Comment on above: Order Comment: Speci men Type: BLOOD SPECIMEN Ordering Facility: [facility] Address: [address] [place] [address] Performed By: #### 5 7782-5 #### [facility] CLIA [id number] [address] [place] [address] [place] [facility] CLIA [id number] [address] [place] [address] [place] #### STFREV #### [facility] CLIA [id number] [address] [place] [address] [place] PATHOLOGIST INTERPRETATION C BC/DIFFon 06-03-2024 Supervisor [place] review Julian (Unsp spec) [Interp] No review performed. Normal [facility] Comment on above: Order Comment: Speci men Type: BLOOD SPECIMEN Ordering Facility: [facility] Address: [address] [place], [place] [address] Performed By: #### 5 7782-5 #### [facility] CLIA [id number] [address] [place] [address] [place] [facility] CLIA [id number] [address] [place], [place] [address] [place] #### STFREV #### [facility] CLIA [id number] [address] [place] [address] STAFF REVIEW, CBCDIF The Pathologist Interpretation on this sample was cancelled because the hematology analyzer did not flag any parameters as requiring manual review. If there is a specific clinical concern for which you would like a pathologist to review the blood smear, please call Lab Client Services within 28 days. Normal [facility] Comment on above: Order Comment: Speci men Type: BLOOD SPECIMEN Ordering Facility: [facility] Address: [address] [place] [address] Performed By: #### 5 7782-5 #### [facility] CLIA [id number] [address] [place] [facility] CLIA [id number] [address] [place] [address] [place] #### STFREV #### [facility] CLIA [id number] [address] [place] [address] OF [place] CNPNon 06-02-2024 CNPN Telephone (SAHRON) -- RADHA MENG ([id number]) 1950 Date Time Provider Department 06/02/24 CHARLOTTE ZUNIGA During your visit today, we recorded the following information about you: Charlotte Zuniga LISW 06/02/2024 9:48 AM Signed Pt noted on [facility] 1st time treatment report. Pt has a non-oncology regimen. No social work follow up indicated. YVROSE Sharif-S Allergies As of Date: 06/02/2024 Noted Allergy Reaction ADHESIVE TAPE-SILICONES 05/22/2024 2 - Rash AMOXICILLIN 05/22/2024 2 - Rash Date Reviewed: 06/01/2024 Reviewed by: Lilly Balderas RN - Fully Assessed Reason for Visit: Social Work Services [507] Prescriptions as of 06/02/2024 - tamsulosin (FLOMAX) 0.4 mg Take 0.4 mg by mouth once daily. - finasteride (PROSCAR) 5 mg tablet Take 5 mg by mouth once daily. - aspirin, enteric coated (ASPIRIN, ENTERIC COATED) 81 mg EC tablet Take 81 mg by mouth every other day. - glucosamine HCl/chondroitin hall (GLUCOSAMINE-CHONDROITIN ORAL) Take 1 tablet by mouth once daily. - multivitamin tablet Take 1 tablet by mouth once daily. - fluticasone (FLONASE ALLERGY RELIEF) 50 mcg/actuation nasal spray Use 1 [place] in each nostril once daily as needed. - OTC PRODUCT Standard Process Prosymbiotic: Take one tablet by mouth once daily. - ascorbic acid, vitamin C, (VITAMIN C) 500 mg tablet Take 500 mg by mouth once daily. - ferrous sulfate (IRON, FERROUS SULFATE,) 325 mg (65 mg iron) tablet Take 325 mg by mouth once daily. Problem List As Of Date 06/02/2024 Noted Resolved Iron deficiency anemia secondary to inadequate *05/22/2024 Encounter Status:Closed by CHARLOTTE ZUNIGA on 06/02/24 [facility] CNOVSPon 05-22-2024 CNOVS Visit (SP) Office (H EMAWS) -- RADHA MENG ([id number]) 1950 M Date Time Provider Department 05/22/24 10:30 AM CATHIE SALAMANCA During your visit today, we recorded the following information about you: Temperature Pulse Blood pressure Weight 97 degrees 78/minute 147/78 82.6 kg Height 1.778 m Cathie Salamanca 05/25/2024 3:02 PM Signed New Patient Note Radha Meng 1950 Encounter date: 05/22/2024 HPI: Radha Meng is a 74 year old male presenting as a new referral from his PCP, Rosita Capone for anemia. Mr. Meng presents today with his spouse. He reports feeling well overall. Denies recent illnesses. No fevers, chills or NS. Reports worsening fatigue over the last year or so. No lumps, bumps or nodules. No unintentional weight loss. Was an avid runner >10 miles but started to feel more fatigued and ROBLES on runs over the last year. Has cut back but still running about a mile a day. Legs and low back have been achy, fatigued getting worse. RLS. No neuropathy. Denies abd pains. No changes in bowel habits. No GERD. Denies any over s/s of bleeding. No hematuria or hematochezia. Appetite is good. No PICA or ice cravings. Has seen Dr Proctor, was due for 5 year f/u may be a year early. Positive cologuard in 2018. He has already contacted Dr Carrington's office to schedule follow up. UTD on health maintenance. Work up from PCP reflects significant MONA. Ferritin 7 on 05/07/2024 (Results scanned in) No monoclonal proteins in serum or urine, Normal serum light chains. TSH, LDH, B12 and folate WNL. 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 Taking tums usually once a week or so no other OTCs or supplements. Not on anticoagulation. Current Outpatient Medications Medication Sig Dispense Refill tamsulosin (FLOMAX) 0.4 mg Take 0.4 mg by mouth once daily. finasteride (PROSCAR) 5 mg tablet Take 5 mg by mouth once daily. aspirin, enteric coated (ASPIRIN, ENTERIC COATED) 81 mg EC tablet Take 81 mg by mouth every other day. glucosamine HCl/chondroitin hall (GLUCOSAMINE-CHONDROITIN ORAL) Take 1 tablet by mouth once daily. multivitamin tablet Take 1 tablet by mouth once daily. fluticasone (FLONASE ALLERGY RELIEF) 50 mcg/actuation nasal spray Use 1 [place] in each nostril once daily as needed. OTC PRODUCT Standard Process Prosymbiotic: Take one tablet by mouth once daily. ascorbic acid, vitamin C, (VITAMIN C) 500 mg tablet Take 500 mg by mouth once daily. ferrous sulfate (IRON, FERROUS SULFATE,) 325 mg (65 mg iron) tablet Take 325 mg by mouth once daily. No current facility-administered medications for this visit. ALLERGIES Allergen Reactions Adhesive Tape-Silic* Rash Amoxicillin Rash FAMILY HISTORY Problem Relation Age of Onset Heart Mother Stroke Mother Arthritis Mother Heart Father Social History Tobacco Use Smoking status: Never Smokeless tobacco: Never Review of Systems: Negative except as noted in HPI reviewed 05/22/2024 Physical Exam: BP 147/78 Pulse 78 Temp (Src) 97 (Temporal) Ht 5' 10" (1.78m) Wt 182 lb (82.6kg) SpO2 100% BMI 26.11 kg/(m2). General: Age-appropriate well developed. Appears well. Younger than stated age. HEENT: Normocephalic, no sclera icterus, external ears normal, oral cavity clear. Neck: Supple, no JVD. Chest: Clear bilaterally, no wheezes, not labored. Heart: Normal S1 and S2, no abnormal sounds Abdomen: Soft, nontender, nondistended, bowel sounds present, no organomegaly or mass, no rigidity. Extremities: No cyanosis, clubbing, gross deformities Neurological: Cranial nerves II through XII are intact bilaterally, no focal deficits. Skin: Warm and dry with no rashes or ulcerations. Nodes: No palpable adenopathy in the cervical, supraclavicular, infraclavicular, or axillary regions. Hematologic: no bruising or petechiae. Psychiatric: Alert and oriented x3. Emotional well-being assessment was performed. Pt denies depression, distress, and or problems with coping or adjustment. Assessment and Plan: Mr. Meng is a pleasant 74 year old gentleman presenting as a new consult for MONA Anemia, Microcytic - Mr. Meng is an active 74 yr old gentleman presenting with microcytic anemia - reviewed potential causes and treatments for anemia including but not limted to chronic blood loss, kidney/liver dysfunction, malabsorption, bone marrow disorders, etc - labs on 05/07/2024 Hgb 7.7 , MCV 62, Pts 458 - overall stable from month prior - (more content not included)... Normal [facility] Chest PA and Lateralon 04-30 Chest PA and Lateral [facility] Imaging Services [address] [place] [address] Chest PA and Lateral MR#: [id number] Acct: [id number] Name: RADHA MENG Rep #: [id number] : 1950 M 74 From: [place] PCP: Dr. Rosita Capone DO Status: DEP AMB Study: Chest PA and Lateral Date of Exam: 04/30/24 Exam# [id number] Ordering Dr: Rosita Capone DO PROCEDURE: CHEST PA AND LATERAL REASON FOR EXAM: Cough. 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 TECHNIQUE: Four view PA and lateral chest. COMPARISON: None. FINDINGS: The heart size is normal. The mediastinal contour is unremarkable. The lungs are clear. The bones are unremarkable, for age. RAD/Chest PA and Lateral IMPRESSION: No evidence of acute cardiopulmonary disease. Reading Location: [address] CC: Dr. Rosita Capone DO Psych Coordinator: Signed Normal [facility] No Panel InformationOrdered By: MICHELLE Banks on 06-13-2023 Prostate Specific Antigen Screen 2.32 ng/mL 0.00-4.00 [facility] Comment on above: This test was perfor med using the TPSA assay method for the[employer] chemistry system. Values obtained with differentassay methods cannot be used interchangably.When changing PSA assays in the course of monitoring apatient, additional sequential testing should be carriedout to confirm baseline values. Basophil percentageOrdered B y: Dr. Capone on 07-17-2022 Potassium [Moles/Vol] 4.8 mmol/L 3.5-5.1 [facility] CBC W/AUTO DIFF WBC ([id number])O rdered By: Emt I/99 on 07-16-2022 Basophils (Bld) [#/Vol] 0.1 10*3/uL Normal 0.0-0.2 [facility]; [facility] Work Phone: Comment on above: PATIENT WAS FASTINGP ERFORMED BY: AUDREY [facility] Dtbbsj6917 [address] RoadDublin [place] [id number] Basophils/100 WBC (Bld) 1 % Normal [facility]; [facility] Work Phone: Comment on above: PATIENT WAS FASTINGP ERFORMED BY: CB [facility] Nleykb4754 [address] RoadDublin [place] [id number] Eosinophils (Bld) [#/Vol] 0.2 10*3/uL Normal 0.0-0.4 [facility]; [facility] Work Phone: Comment on above: PATIENT WAS FASTINGP ERFORMED BY: [facility] Kprsts7723 [address] RoadDublin [place] [id number] Eosinophils/100 WBC (Bld) 3 % Normal [facility]; [facility] Work Phone: Comment on above: PATIENT WAS FASTINGP ERFORMED BY: [facility] Ytgstc7533 [address] RoadCone Health Med[facility] Pointin [place] [id number] Erythrocyte distribution width (RBC) [Ratio] 12.3 % Normal 11.6-15.4 [facility]; [facility] Work Phone: Comment on above: PATIENT WAS FASTINGP ERFORMED BY: [facility] Iuxoub2807 [address] RoadDublin [place] [id number] Hematocrit (Bld) [Volume fraction] 42.9 % Normal 37.5-51.0 [facility]; [facility] Work Phone: Comment on above: PATIENT WAS FASTINGP ERFORMED BY: [facility] Zenjye7855 [address] RoadDublin [place] [id number] Hemoglobin (Bld) [Mass/Vol] 14.1 g/dL Normal 13.0-17.7 [facility]; [facility] Work Phone: Comment on above: PATIENT WAS FASTINGP ERFORMED BY: CB [facility] Ffetfa3337 [address] RoadDublin [place] [id number] Immature granulocytes (Bld) [#/Vol] 0.0 10*3/uL Normal 0.0-0.1 [facility]; [facility] Work Phone: Comment on above: PATIENT WAS FASTINGP ERFORMED BY: AUDREY Nona Fskwgm9286 [address] RoadDublin [place] [id number] Immature granulocytes/100 WBC (Bld) 1 % Normal [facility]; [facility] Work Phone: Comment on above: PATIENT WAS FASTINGP ERFORMED BY: LabAdam Ville [id number] Johnson RoadCone Health Medcenter [facility] Pointin [place] [id number] Lymphocytes (Bld) [#/Vol] 1.5 10*3/uL Normal 0.7-3.1 [facility]; [facility] Work Phone: Comment on above: PATIENT WAS FASTINGP ERFORMED BY: AUDREY [facility] Krgnti9713 [address] RoadCone Health Med[facility] [place]in [place] [id number] Lymphocytes/100 WBC (Bld) 24 % Normal [facility]; [facility] Work Phone: Comment on above: PATIENT WAS FASTINGP ERFORMED BY: [place] [id number] [facility] [id number] MCH (RBC) [Entitic mass] 27.5 pg Normal 26.6-33.0 [facility]; [facility] Work Phone: Comment on above: PATIENT WAS FASTINGP ERFORMED BY: [place] [id number] [facility]in [place] [id number] MCHC (RBC) [Mass/Vol] 32.9 g/dL Normal 31.5-35.7 [facility]; [facility] Work Phone: Comment on above: PATIENT WAS FASTINGP ERFORMED BY: LabC.S. [facility] [facility] HealthD[facility] [place] [id number] MCV (RBC) [Entitic vol] 84 fL Normal 79-97 [facility]; [facility] Work Phone: Comment on above: PATIENT WAS FASTINGP ERFORMED BY: LabAdam Ville [id number] [address] [facility] HealthD[facility] [place] [id number] Monocytes (Bld) [#/Vol] 0.7 10*3/uL Normal 0.1-0.9 [facility]; [facility] Work Phone: Comment on above: PATIENT WAS FASTINGP ERFORMED BY: AUDREY Labcomadeline FuCpsfxs6589 [address] RoadDublin [place] [id number] Monocytes/100 WBC (Bld) 11 % Normal [facility]; [facility] Work Phone: Comment on above: PATIENT WAS FASTINGP ERFORMED BY: [facility] Fpbyfm1068 [address] RoadDublin [place] [id number] Neutrophils (Bld) [#/Vol] 3.9 10*3/uL Normal 1.4-7.0 [facility]; [facility] Work Phone: Comment on above: PATIENT WAS FASTINGP ERFORMED BY: AUDREY [facility] Dnlrod5784 [address] RoadDublin [place] [id number] Neutrophils/100 WBC (Bld) 60 % Normal [facility]; [facility] Work Phone: Comment on above: PATIENT WAS FASTINGP ERFORMED BY: [facility] Yjzrsx6682 [address] RoadDublin [place] [id number] Platelets (Bld) [#/Vol] 339 10*3/uL Normal 150-450 [facility]; [facility] Work Phone: Comment on above: PATIENT WAS FASTINGP ERFORMED BY: [facility] Ylmqia8692 [address] Roadblin [place] [id number] RBC (Bld) [#/Vol] 5.12 10*6/uL Normal 4.14-5.80 Compr ehensive [facility]; [facility] Work Phone: Comment on above: PATIENT WAS FASTINGP ERFORMED BY: [facility] Txqpss8023 [address] RoadDublin [place] [id number] WBC (Bld) [#/Vol] 6.3 10*3/uL Normal 3.4-10.8 Compre hensive [facility]; [facility] Work Phone: Comment on above: PATIENT WAS FASTINGP ERFORMED BY: AUDREY Labzacarias RazaYnaktj4609 [address] RoadDublin [place] [id number] LIPID PANEL ([id number])Ordered B y: Emt I/99 on 07-16-2022 Cholesterol [Mass/Vol] 196 mg/dL Normal 100-199 [facility]; [facility] Work Phone: Comment on above: PATIENT WAS FASTINGP ERFORMED BY: AUDREY Labzacarias RazaCgrrca0239 [address] Roadblin [place] [id number] Cholesterol in HDL [Mass/Vol] 46 mg/dL Normal [facility]; [facility] Work Phone: Comment on above: PATIENT WAS FASTINGP ERFORMED BY: AUDREY Labzacarias RazaAhfhuq0954 [address] City Hospitalblin [place] [id number] Triglyceride [Mass/Vol] 121 mg/dL Normal 0-149 [facility]; [facility] Work Phone: Comment on above: PATIENT WAS FASTINGP ERFORMED BY: AUDREY Razalin6[address] [facility] [id number] LIPID PANEL (18729) 22 mg/dL Normal 5-40 Compr ehensive [facility]; [facility] Work Phone: Comment on above: PATIENT WAS FASTINGP ERFORMED BY: AUDREY Labzacarias RazaPaxume2244 [address] [facility] HealthD[facility] [place] [id number] LIPID PANEL (71548) 128 mg/dL Abnormal 0-99 Compr ensive [facility]; [facility] Work Phone: Comment on above: PATIENT WAS FASTINGP ERFORMED BY: AUDREY Labzacarias Cenggx13[address] [facility]in [place] [id number] LIPID PANEL (03379) 2.8 {ratio} Normal 0.0-3.6 Comp [facility]; [facility] Work Phone: Comment on above: LDL/HDL Ratio Men Wo men 1/2 Avg.Risk 1.0 1.5 Avg.Risk 3.6 3.2 2X Avg.Risk 6.2 5.0 3X Avg.Risk 8.0 6.1 PATIENT WAS FASTINGP ERFORMED BY: AUDREY Labcomadeline Dpimdv6[address] [facility] [id number] METABOLIC PANEL, COMPREHENSI VE (28994)Ordered By: Emt I/99 on 07-16-2022 Albumin [Mass/Vol] 4.6 g/dL Normal 3.7-4.7 [facility]; [facility] Work Phone: Comment on above: PATIENT WAS FASTINGP ERFORMED BY: [facility] Mwhyms5850 [address] [facility]in [place] [id number] Albumin/Globulin [Mass ratio] 1.9 {ratio} Normal 1.2-2.2 [facility]; [facility] Work Phone: Comment on above: PATIENT WAS FASTINGP ERFORMED BY: CB [facility] Zslnie7015 [address] [facility] [id number] ALP [Catalytic activity/Vol] 94 U/L Normal 44-121 [facility]; [facility] Work Phone: Comment on above: PATIENT WAS FASTINGP ERFORMED BY: [facility] Yjiftn0896 [address] [facility] [id number] ALT [Catalytic activity/Vol] 27 U/L Normal 0-44 [facility]; [facility] Work Phone: Comment on above: PATIENT WAS FASTINGP ERFORMED BY: [facility] Lrnnzt6716 [address] [facility] [id number] AST [Catalytic activity/Vol] 26 U/L Normal 0-40 [facility]; [facility] Work Phone: Comment on above: PATIENT WAS FASTINGP ERFORMED BY: [facility] Yzkyok4742 [address] [facility] [id number] Bilirubin [Mass/Vol] 0.6 mg/dL Normal 0.0-1.2 [facility]; [facility] Work Phone: Comment on above: PATIENT WAS FASTINGP ERFORMED BY: [facility] Qxudax9777 [address] [facility] [id number] Calcium [Mass/Vol] 9.8 mg/dL Normal 8.6-10.2 [facility]; [facility] Work Phone: Comment on above: PATIENT WAS FASTINGP ERFORMED BY: AUDREY [facility] Trviri1651 [address] RoadDublin [place] [id number] Chloride [Moles/Vol] 104 mmol/L Normal 96-106 Comp rehensive [facility] Medicine; [facility] Work Phone: Comment on above: PATIENT WAS FASTINGP ERFORMED BY: CB [facility] Ophzpu7853 [address] RoadDublin [place] [id number] CO2 [Moles/Vol] 22 mmol/L Normal 20-29 Comprehen [facility]; [facility] Work Phone: Comment on above: PATIENT WAS FASTINGP ERFORMED BY: AUDREY [facility] Ntkljk3110 [address] RoadDublin [place] [id number] Creatinine [Mass/Vol] 1.03 mg/dL Normal 0.76-1.27 [facility]; [facility] Work Phone: Comment on above: PATIENT WAS FASTINGP ERFORMED BY: AUDREY [facility] Fcgevx6777 [address] RoadDublin [place] [id number] GFR/1.73 sq M.predicted among non-blacks MDRD (S/P/Bld) [Vol rate/Area] 78 mL/min/{1.73_m2} Normal Comprehensiv e [facility]; [facility] Work Phone: Comment on above: PATIENT WAS FASTINGP ERFORMED BY: AUDREY [facility] Urwlrf1447 [address] RoadDuin [place] [id number] Globulin (S) [Mass/Vol] 2.4 g/dL Normal 1.5-4.5 [facility]; [facility] Work Phone: Comment on above: PATIENT WAS FASTINGP ERFORMED BY: CB [facility] Qtkyov3506 [address] RoadDublin [place] [id number] Glucose [Mass/Vol] 93 mg/dL Normal 70-99 Compre [facility]; [facility] Work Phone: Comment on above: PATIENT WAS FASTINGP ERFORMED BY: CB [facility] Rrlumm5465 [address] RoadDublin [place] [id number] Potassium [Moles/Vol] 5.4 mmol/L Abnormal 3.5-5.2 [facility]; [facility] Work Phone: Comment on above: PATIENT WAS FASTINGP ERFORMED BY: CB [facility] Keackr9279 [address] RoadDublin [place] [id number] Protein [Mass/Vol] 7.0 g/dL Normal 6.0-8.5 [facility]; [facility] Work Phone: Comment on above: PATIENT WAS FASTINGP ERFORMED BY: CB [facility] Voizip6773 [address] RoadDublin [place] [id number] Sodium [Moles/Vol] 139 mmol/L Normal 134-144 [facility]; [facility] Work Phone: Comment on above: PATIENT WAS FASTINGP ERFORMED BY: CB [facility] Cdoobf2934 [address] RoadDublin [place] [id number] Urea nitrogen [Mass/Vol] 24 mg/dL Normal 8-27 [facility]; [facility] Work Phone: Comment on above: PATIENT WAS FASTINGP ERFORMED BY: CB [facility] Okfhur7272 [address] RoadDublin [place] [id number] Urea nitrogen/Creatinine [Mass ratio] 23 mg/mg Normal 10-24 [facility]; [facility] Work Phone: Comment on above: PATIENT WAS FASTINGP ERFORMED BY: CB [facility] Gdfebg6646 [address] RoadDublin [place] [id number] TSH ([id number])Ordered By: Marvin m Statistical Methods Professor on 07-16-2022 TSH Qn 2.110 {uIU/mL} Normal 0.450-4.50 0 [facility]; [facility] Work Phone: Comment on above: PATIENT WAS FASTINGP ERFORMED BY: CB [facility] Wzoanl7225 [address] RoadDublin [place] [id number] No Panel InformationOrdered By: Dr. Lopez on 05-29-2022 Prostate Specific Antigen Screen 1.75 ng/mL 0.00-4.00 [facility] Comment on above: This test was perfor med using the TPSA assay method for theWingu chemistry system. Values obtained with differentassay methods cannot be used interchangably.When changing PSA assays in the course of monitoring apatient, additional sequential testing should be carriedout to confirm baseline values. HEPATITIS C ANTIBODY ([id number]) Ordered By: Emt I/99 on 06-07-2021 HCV Ab Signal/Cutoff IA [Rel units/Vol] {ratio} Normal 0.0-0.9 [facility]; [facility] Work Phone: Comment on above: Negative: < 0.8 Inde terminate: 0.8 - 0.9 Positive: > 0.9 . The CDC recommends that a positive HCV antibody result be followed up with a HCV Nucleic Acid Amplification test (806548). PATIENT NOT FASTINGP ERFORMED BY: I[address]os[address] [place] [id number] PSA (PROSTATE SPECIFIC ANTIG EN) (V76.44)Ordered By: Emt I/99 on 03-10-2020 Prostate specific Ag [Mass/Vol] 1.9 ng/mL Normal 0.0-4.0 [facility]; [facility] Work Phone: Comment on above: [employer] ECLIA methodol ogy. .According to the [place] [employer], Serum PSA shoulddecrease and remain at undetectable levels after radicalprostatectomy. The AUA defines biochemical recurrence as an initialPSA value 0.2 ng/mL or greater followed by a subsequent confirmatoryPSA value 0.2 ng/mL or greater.Values obtained with different assay methods or kits cannot be usedinterchangeably. Results cannot be interpreted as absolute evidenceof the presence or absence of malignant disease. send results to dr eyal polo; PATIENT NOT FASTINGPERFORMED BY: [facility] Deimfo3372 [facility] [id number] 2018 Novel Coronavirus (COVI D-19), FARIBA (35887)Ordered By: Emt I/99 on 02-22-20202018 Novel Coronavirus (COVID-19), FARIBA (20771) Not Detected Normal [facility]; [facility] Work Phone: Comment on above: This nucleic acid am plification test was developed and its performancecharacteristics determined by [employer]. Nucleic acidamplification tests include PCR and TMA. This test has not been FDAcleared or approved. This test has been authorized by FDA under anEmergency Use Authorization (EUA). This test is only authorized forthe duration of time the declaration that circumstances existjustifying the authorization of the emergency use of in vitrodiagnostic tests for detection of SARS-CoV-2 virus and/or diagnosisof COVID-19 infection under section 564(b)(1) of the Act, 21 U.S.C.360bbb-3(b) (1), unless the authorization is terminated or revokedsooner.When diagnostic testing is negative, the possibility of a falsenegative result should be considered in the context of a patient'srecent exposures and the presence of clinical signs and symptomsconsistent with COVID-19. An individual without symptoms of COVID-19and who is not shedding SARS-CoV-2 virus would expect to have anegative (not detected) result in this assay. PATIENT NOT FASTINGP ERFORMED BY: [place] [employer] Dxamcdgjor6319 [employer] PharmaceuticalsSol[place] [id number] 2019 Novel Coronavirus (COVID-19), FARIBA (43816) Not detected Normal [facility]; [facility] Work Phone: Comment on above: This nucleic acid am plification test was developed and its performancecharacteristics determined by [employer]. Nucleic acidamplification tests include PCR and TMA. This test has not been FDAcleared or approved. This test has been authorized by FDA under anEmergency Use Authorization (EUA). This test is only authorized forthe duration of time the declaration that circumstances existjustifying the authorization of the emergency use of in vitrodiagnostic tests for detection of SARS-CoV-2 virus and/or diagnosisof COVID-19 infection under section 564(b)(1) of the Act, 21 U.S.C.360bbb-3(b) (1), unless the authorization is terminated or revokedsooner.When diagnostic testing is negative, the possibility of a falsenegative result should be considered in the context of a patient'srecent exposures and the presence of clinical signs and symptomsconsistent with COVID-19. An individual without symptoms of COVID-19and who is not shedding SARS-CoV-2 virus would expect to have anegative (not detected) result in this assay. PATIENT NOT FASTINGP ERFORMED BY: TOMMY Maria [facility] Zphebpladz8498 [address] [place] [id number] PSA,Total - Annual ScreenOrd ered By: Emt I/99 on 04-29-2018 Prostate specific Ag [Mass/Vol] 1.62 ng/mL Normal 0.00-4.00 [facility] Work Phone: Comment on above: This test was perfor med using the TPSA assay method for [employer] chemistry system. Values obtained with differentassay methods cannot be used interchangably.When changing PSA assays in the course of monitoring apatient, additional sequential testing should be carriedout to confirm baseline values. [facility] Jvuj[address] [place], [place], [address]01 CBC W/AUTO DIFF WBC ([id number])O rdered By: Emt I/99 on 12-13-2017 Basophils (Bld) [#/Vol] 0.0 {x10E3/uL} Normal 0.0-0.2 [facility] Work Phone: Comment on above: PATIENT WAS FASTINGP ERFORMED BY: [employer] [id number] BY: [employer] [id number] Basophils (Bld) [#/Vol] 0.0 10*3/uL Normal 0.0-0.2 [facility]; [facility] Work Phone: Comment on above: PATIENT WAS FASTINGP ERFORMED BY: [employer] [id number] BY: [address] [id number] Basophils Auto #/vol (Bld) 0.0 {x10E3/uL} Normal 0.0-0.2 [facility] Work Phone: Basophils/100 WBC (Bld) 1 % Normal [facility] Work Phone: Comment on above: PATIENT WAS FASTINGP ERFORMED BY: twidox[address] [id number] BY: OmnitureShore Memorial HospitalObmcox1879 [facility] [id number] Basophils/100 WBC Auto (Bld) 1 % Normal [facility] Work Phone: Eosinophils (Bld) [#/Vol] 0.2 {x10E3/uL} Normal 0.0-0.4 [facility] Work Phone: Comment on above: PATIENT WAS FASTINGP ERFORMED BY: handsomexcutive [address] [id number] BY: MediSapienslin6370 [facility] [id number] Eosinophils (Bld) [#/Vol] 0.2 10*3/uL Normal 0.0-0.4 [facility]; [facility] Work Phone: Comment on above: PATIENT WAS FASTINGP ERFORMED BY: handsomexcutive [address] [id number] BY: [place]itureSh[place] 8230070 [facility] [id number] Eosinophils Auto #/vol (Bld) 0.2 {x10E3/uL} Normal 0.0-0.4 [facility] Work Phone: Eosinophils/100 WBC (Bld) 3 % Normal [facility] Work Phone: Comment on above: PATIENT WAS FASTINGP ERFORMED BY: handsomexcutive [address] [id number] BY: OmnitureSh[place] 8230070 [facility] [id number] Eosinophils/100 WBC Auto (Bld) 3 % Normal [facility] Work Phone: Erythrocyte distribution width (RBC) [Ratio] 13.3 % Normal 12.3-15.4 [facility] Work Phone: Comment on above: PATIENT WAS FASTINGP ERFORMED BY: Omniture[address] [id number] BY: AUDREY [facility] CenterJCDShawn Ville 8230070 [facility] [id number] Erythrocyte distribution width Auto Ratio (RBC) 13.3 % Normal 12.3-15.4 [facility] Work Phone: Hematocrit (Bld) [Volume fraction] 48.5 % Normal 37.5-51.0 [facility] Work Phone: Comment on above: PATIENT WAS FASTINGP ERFORMED BY: Omniture[address] [id number] BY: AUDREY [place]itureSh[place] 8230070 [facility] [id number] Hematocrit Auto Volume Fraction (Bld) 48.5 % Normal 37.5-51.0 [facility] Work Phone: Hemoglobin mass conc (Bld) 16.9 g/dL Normal 13.0-17.7 [facility] Work Phone: Comment on above: PATIENT WAS FASTINGP ERFORMED BY: Omniture[address] [id number] BY: [facility] HospitalJCDShawn Ville 8230070 [facility] [id number] Immature granulocytes #/vol (Bld) 0.0 {x10E3/uL} Normal 0.0-0.1 [facility] Work Phone: Comment on above: PATIENT WAS FASTINGP ERFORMED BY: Omniture[address] [id number] BY: [place]itureSh[place] 8230070 [facility] [id number] Immature granulocytes (Bld) [#/Vol] 0.0 10*3/uL Normal 0.0-0.1 [facility]; [facility] Work Phone: Comment on above: PATIENT WAS FASTINGP ERFORMED BY: Omniture[address] [id number] BY: [facility] HospitalCoShore Memorial HospitalRdpfsl2204 Johnson RoadCone Health Med[facility] [place] [id number] Immature granulocytes/100 WBC (Bld) 0 % Normal [facility] Work Phone: Comment on above: PATIENT WAS FASTINGP ERFORMED BY: [address] [id number] BY: LabDanielle V[place] [id number] Johnson RoadCone Health Med[facility] [place] [id number] Lymphocytes (Bld) [#/Vol] 1.0 {x10E3/uL} Normal 0.7-3.1 [facility] Work Phone: Comment on above: PATIENT WAS FASTINGP ERFORMED BY: [address] [id number] BY: [place] [id number] Johnson RoadFormerly [facility] [id number] Lymphocytes (Bld) [#/Vol] 1.0 10*3/uL Normal 0.7-3.1 [facility]; [facility] Work Phone: Comment on above: PATIENT WAS FASTINGP ERFORMED BY: [address] [id number] BY: [place] 3453470 [address] [facility] [id number] Lymphocytes Auto #/vol (Bld) 1.0 {x10E3/uL} Normal 0.7-3.1 [facility] Work Phone: Lymphocytes/100 WBC (Bld) 16 % Normal [facility] Work Phone: Comment on above: PATIENT WAS FASTINGP ERFORMED BY: [address] [id number] BY: [place] 3453470 [facility] [id number] Lymphocytes/100 WBC Auto (Bld) 16 % Normal [facility] Work Phone: MCH (RBC) [Entitic mass] 30.5 pg Normal 26.6-33.0 [facility] Work Phone: Comment on above: PATIENT WAS FASTINGP ERFORMED BY: handsomexcutive [address] [id number] BY: MediSapienslin6370 [facility] [id number] MCH Auto Entitic mass (RBC) 30.5 pg Normal 26.6-33.0 [facility] Work Phone: MCHC (RBC) [Mass/Vol] 34.8 g/dL Normal 31.5-35.7 [facility] Work Phone: Comment on above: PATIENT WAS FASTINGP ERFORMED BY: Prestadero[address] [id number] BY: OrderBorderlin6370 [facility] [id number] MCHC Auto mass conc (RBC) 34.8 g/dL Normal 31.5-35.7 [facility] Work Phone: MCV (RBC) [Entitic vol] 88 fL Normal 79-97 [facility] Work Phone: Comment on above: PATIENT WAS FASTINGP ERFORMED BY: handsomexcutive [address] [id number] BY: OmnitureShore Memorial HospitalFsqstn9747 [facility] [id number] MCV Auto Entitic volume (RBC) 88 fL Normal 79-97 [facility] Work Phone: Monocytes (Bld) [#/Vol] 1.0 {x10E3/uL} Abnormal 0.1-0.9 [facility] Work Phone: Comment on above: PATIENT WAS FASTINGP ERFORMED BY: handsomexcutive [address] [id number] BY: [place]iture[place] 8230070 [facility] [id number] Monocytes (Bld) [#/Vol] 1.0 10*3/uL Abnormal 0.1-0.9 [facility]; [facility] Work Phone: Comment on above: PATIENT WAS FASTINGP ERFORMED BY: Omniture[address] [id number] BY: AUDREY OmnitureShore Memorial HospitalErbmpq7394 [address] [facility] [id number] Monocytes Auto #/vol (Bld) 1.0 {x10E3/uL} Abnormal 0.1-0.9 [facility] Work Phone: Monocytes/100 WBC (Bld) 15 % Normal [facility] Work Phone: Comment on above: PATIENT WAS FASTINGP ERFORMED BY: handsomexcutive [address] [id number] BY: [place]iture[place] 8230070 [facility] [id number] Monocytes/100 WBC Auto (Bld) 15 % Normal [facility] Work Phone: Neutrophils (Bld) [#/Vol] 4.3 {x10E3/uL} Normal 1.4-7.0 [facility] Work Phone: Comment on above: PATIENT WAS FASTINGP ERFORMED BY: Omniture[address] [id number] BY: OmnitureShore Memorial HospitalFgigru8508 [facility] [id number] Neutrophils (Bld) [#/Vol] 4.3 10*3/uL Normal 1.4-7.0 [facility]; [facility] Work Phone: Comment on above: PATIENT WAS FASTINGP ERFORMED BY: [facility] [address] [id number] BY: [place]iture[place] 8230070 [facility] [id number] Neutrophils Auto #/vol (Bld) 4.3 {x10E3/uL} Normal 1.4-7.0 [facility] Work Phone: Neutrophils/100 WBC (Bld) 65 % Normal [facility] Work Phone: Comment on above: PATIENT WAS FASTINGP ERFORMED BY: Omniture[address] [id number] BY: LabCo Kobwey5292 [address] [facility] Hospitalin [place] [id number] Neutrophils/100 WBC Auto (Bld) 65 % Normal [facility] Work Phone: Platelets (Bld) [#/Vol] 225 {x10E3/uL} Normal 150-379 [facility] Work Phone: Comment on above: PATIENT WAS FASTINGP ERFORMED BY: Omniturerp Jfaawfcfcb[address] [id number] BY: AUDREY Lab[facility] Bzobao8814 [address] [facility] Hospitalin [place] [id number] Platelets (Bld) [#/Vol] 225 10*3/uL Normal 150-379 [facility]; [facility] Work Phone: Comment on above: PATIENT WAS FASTINGP ERFORMED BY: [employer] [id number] BY: AUDREY LabJCD Ccvtbf9000 [address] [facility] [id number] Platelets Auto #/vol (Bld) 225 {x10E3/uL} Normal 150-379 [facility] Work Phone: RBC (Bld) [#/Vol] 5.54 {x10E6/uL} Normal 4.14-5.80 [facility] Internal Medicine Work Phone: Comment on above: PATIENT WAS FASTINGP ERFORMED BY: Omniture[address] [id number] BY: LabJCD Hrgrmm7743 [address] [facility] Hospitalin [place] [id number] RBC (Bld) [#/Vol] 5.54 10*6/uL Normal 4.14-5.80 [facility] Internal [facility]; [facility] Work Phone: Comment on above: PATIENT WAS FASTINGP ERFORMED BY: Omniture[address] [id number] BY: Ahaali6370 [facility] [id number] RBC Auto #/vol (Bld) 5.54 {x10E6/uL} Normal 4.14-5.80 [facility] Work Phone: WBC (Bld) [#/Vol] 6.5 {x10E3/uL} Normal 3.4-10.8 [facility] Internal Medicine Work Phone: Comment on above: PATIENT WAS FASTINGP ERFORMED BY: Prest[address] [id number] BY: [employer]70 [facility] [id number] WBC (Bld) [#/Vol] 6.5 10*3/uL Normal 3.4-10.8 [facility] Medicine; [facility] Work Phone: Comment on above: PATIENT WAS FASTINGP ERFORMED BY: [address] [id number] BY: [employer]70 [facility] [id number] WBC Auto #/vol (Bld) 6.5 {x10E3/uL} Normal 3.4-10.8 [facility] Work Phone: LIPOPROTEIN, BLD, BY NMR ([phone])Ordered By: Emt I/99 on 12-13-2017 Cholesterol in HDL mass conc 46 mg/dL Normal [facility] Work Phone: Comment on above: PATIENT WAS FASTINGP ERFORMED BY: handsomexcutive [address] [id number] BY: [place] BaySh[place] 8230070 [facility] [id number] Cholesterol in LDL mass conc 125 mg/dL Abnormal 0-99 [facility] Work Phone: Comment on above: . Optimal < 100 Abov e optimal 100 - 129 Borderline 130 - 159 High 160 - 189 Very high > 189 .LDL-C is inaccurate if patient is non-fasting. PATIENT WAS FASTINGP ERFORMED BY: Prest[address] [id number] BY: [employer]70 Jag.agNovant Health Row[facility] [id number] Cholesterol mass conc 191 mg/dL Normal 100-199 [facility] Work Phone: Comment on above: PATIENT WAS FASTINGP ERFORMED BY: [address] [id number] BY: [employer]70 [address] NaymitNovant Health Rowan Medical Center [id number] Lipoprotein.alpha molar conc 34.1 umol/L Normal [facility] Work Phone: Comment on above: PATIENT WAS FASTINGP ERFORMED BY: [address] [id number] BY: Carezone.comNovant Health Rowan Medical Center [id number] Lipoprotein.beta.sub particle Entitic length 20.4 nm Normal [facility] Work Phone: Comment on above: INTERPRETATIVE INFORMATION PARTICLE CONCENTRATION AND SIZE <--Lower CVD Risk Higher CVD Risk--> LDL AND HDL PARTICLES Percentile in Reference Population HDL-P (total) High 75th 50th 25th Low >34.9 34.9 30.5 26.7 <26.7 . Small LDL-P Low 25th 50th 75th High <117 117 527 839 >839 . LDL Size <-Large (Pattern A)-> <-Small (Pattern B)-> 23.0 20.6 20.5 19.0 Small LDL-P and LDL Size are associated with CVD risk, but not afterLDL-P is taken into account. .These assays were developed and their performance characteristicsdetermined by [employer]. These assays have not been cleared by [employer] Food and Drug Administration. The clinical utility of theselaboratory values have not been fully established. PATIENT WAS FASTINGP ERFORMED BY: Omniture[address] [id number] BY: Omniture Efxvlv0811 [facility] [id number] Lipoprotein.beta.sub particle molar conc 1704 nmol/L Abnormal Comprehensiv e Internal Medicine Work Phone: Comment on above: Low < 1000 Moderate 1000 - 1299 Borderline-High 1300 - 1599 High 1600 - 2000 Very High > 2000 PATIENT WAS FASTINGP ERFORMED BY: Omniture[address] [id number] BY: Omniture Wbdqvp4889 [facility] [id number] Lipoprotein.beta.sub particle.small molar conc 795 nmol/L Abnormal [facility] Work Phone: Comment on above: PATIENT WAS FASTINGP ERFORMED BY: Omniture[address] [id number] BY: Omniture Hrkkec5637 [facility] [id number] Triglyceride mass conc 102 mg/dL Normal 0-149 [facility] Work Phone: Comment on above: PATIENT WAS FASTINGP ERFORMED BY: AMEE[address] [id number] BY: OmnitureShore Memorial HospitalWjykfb9771 [facility] [id number] METABOLIC PANEL, COMPREHENSI VE ([id number])Ordered By: Emt I/99 on 12-13-2017 Albumin mass conc 4.7 g/dL Normal 3.6-4.8 Compreh ensive Internal Medicine Work Phone: Comment on above: PATIENT WAS FASTINGP ERFORMED BY: Omniture[address] [id number] BY: AUDREY [facility] Axzsre8920 Johnson RoadDublin [place] [id number] Albumin/Globulin mass ratio 2.0 {ratio} Normal 1.2-2.2 [facility] Work Phone: Comment on above: PATIENT WAS FASTINGP ERFORMED BY: [address] [id number] BY: [facility] Fvhljh3234 Johnson RoadDublin [place] [id number] ALP [Catalytic activity/Vol] 89 U/L Normal 39-117 [facility]; [facility] Work Phone: Comment on above: PATIENT WAS FASTINGP ERFORMED BY: Lab[address] [id number] BY: AUDREY [facility] Spheit8727 Johnson RoadDublin [place] [id number] ALP enzyme act/vol 89 [iU]/L Normal 39-117 [facility] Internal Medicine Work Phone: Comment on above: PATIENT WAS FASTINGP ERFORMED BY: [address] [id number] BY: LabFreeman [facility] Institute Ssfjhb6643 [address] RoadDublin [place] [id number] ALT [Catalytic activity/Vol] 23 U/L Normal 0-44 [facility]; [facility] Internal Medicine Work Phone: Comment on above: PATIENT WAS FASTINGP ERFORMED BY: Lab[address] [id number] BY: [facility] Cqkcok5334 [address] RoadDublin [place] [id number] ALT enzyme act/vol 23 [iU]/L Normal 0-44 [facility] Internal Medicine Work Phone: Comment on above: PATIENT WAS FASTINGP ERFORMED BY: Lab[address] [id number] BY: [facility] Zixswg0659 [address] RoadDublin [place] [id number] AST [Catalytic activity/Vol] 26 U/L Normal 0-40 [facility]; [facility] Work Phone: Comment on above: PATIENT WAS FASTINGP ERFORMED BY: Lab[address] [id number] BY: AUDREY [facility] Bdtpnk0664 [address] RoadDublin [place] [id number] AST enzyme act/vol 26 [iU]/L Normal 0-40 Compre hensive Internal Medicine Work Phone: Comment on above: PATIENT WAS FASTINGP ERFORMED BY: Lab[address] [id number] BY: AUDREY [facility] Luspaj4198 Johnson RoadCone Health Med[facility] [place]in [place] [id number] Bilirubin mass conc 1.0 mg/dL Normal 0.0-1.2 Compr ehensive Internal Medicine Work Phone: Comment on above: PATIENT WAS FASTINGP ERFORMED BY: Lab[address] [id number] BY: AUDREY [facility] Ijsvui3666 Johnson RoadDuin [place] [id number] Calcium mass conc 9.8 mg/dL Normal 8.6-10.2 Compreh ensive Internal Medicine Work Phone: Comment on above: PATIENT WAS FASTINGP ERFORMED BY: [address] [id number] BY: [facility] Hwmcjr3521 Johnson RoadDuin [place] [id number] Chloride molar conc 101 mmol/L Normal 96-106 Compr ehensive Internal Medicine Work Phone: Comment on above: PATIENT WAS FASTINGP ERFORMED BY: Lab[address] [id number] BY: [facility] Xbgpai0325 Johnson RoadDublin [place] [id number] CO2 molar conc 20 mmol/L Normal 20-29 Comprehens champ Internal Medicine Work Phone: Comment on above: PATIENT WAS FASTINGP ERFORMED BY: LabCo[address] [id number] BY: [facility] Qqcxgi5595 [facility]in [place] [id number] Creatinine mass conc 1.08 mg/dL Normal 0.76-1.27 Comp rehensive Internal Medicine Work Phone: Comment on above: PATIENT WAS FASTINGP ERFORMED BY: LabCo[address] [id number] BY: [facility] Zoqsak5965 [address] [facility] [id number] GFR/1.73 sq M predicted among blacks CKD-EPI vol rate/area (S/P/Bld) 82 mL/min/1.73 Normal Comprehensiv e Internal Medicine Work Phone: Comment on above: PATIENT WAS FASTINGP ERFORMED BY: Lab[address] [id number] BY: [facility] Ysdpht1145 [facility] [id number] GFR/1.73 sq M predicted among non-blacks CKD-EPI vol rate/area (S/P/Bld) 71 mL/min/1.73 Normal [facility] Work Phone: Comment on above: PATIENT WAS FASTINGP ERFORMED BY: Lab[address] [id number] BY: [facility] Dcvdbh4783 [facility] [id number] Globulin (S) [Mass/Vol] 2.3 g/dL Normal 1.5-4.5 [facility] Work Phone: Comment on above: PATIENT WAS FASTINGP ERFORMED BY: Lab[address] [id number] BY: [facility] Ukzdqm6046 [facility] [id number] Globulin Calculated mass conc (S) 2.3 g/dL Normal 1.5-4.5 [facility] Work Phone: Glucose mass conc 98 mg/dL Normal 65-99 Compreh ensive Internal Medicine Work Phone: Comment on above: PATIENT WAS FASTINGP ERFORMED BY: FLORES [facility] [address] [id number] BY: AUDREY [facility] Wzrrhz9425 [address] RoadDublin [place] [id number] Potassium molar conc 4.6 mmol/L Normal 3.5-5.2 Comp rehensive Internal Medicine Work Phone: Comment on above: PATIENT WAS FASTINGP ERFORMED BY: FLORES [facility] [address] [id number] BY: AUDREY [facility] Csobus6370 [address] RoadCone Health Med[facility] [place]in [place] [id number] Protein mass conc 7.0 g/dL Normal 6.0-8.5 Compreh ensive Internal Medicine Work Phone: Comment on above: PATIENT WAS FASTINGP ERFORMED BY: FLORES [facility] [address] [id number] BY: AUDREY [facility] Dyfnfx2151 [address] RoadCone Health Medcenter [facility] Pointin [place] [id number] Sodium molar conc 140 mmol/L Normal 134-144 Compreh ensive Internal Medicine Work Phone: Comment on above: PATIENT WAS FASTINGP ERFORMED BY: FLORES [facility] [address] [id number] BY: AUDREY [facility] Lhowxz9594 [address] RoadCone Health Medcenter High Pointin [place] [id number] Urea nitrogen mass conc 15 mg/dL Normal 8-27 [facility] Work Phone: Comment on above: PATIENT WAS FASTINGP ERFORMED BY: [facility] [address] [id number] BY: AUDREY [facility] Qdiexv4224 [address] RoadDublin [place] [id number] Urea nitrogen/Creatinine mass ratio 14 mg/mg Normal 10-24 [facility] Work Phone: Comment on above: PATIENT WAS FASTINGP ERFORMED BY: LabCo[address] [id number] BY: AUDREY [facility] Tjqqbb4043 [facility] [id number] MICROALBUMINOrdered By: Syst em Statistical Methods Professor on 12-13-2017 Albumin DL <= 20 mg/L mass conc (U) 9.0 ug/mL Normal [facility] Work Phone: Comment on above: PATIENT WAS FASTINGP ERFORMED BY: Lab[address] [id number] BY: AUDREY LabCoShore Memorial HospitalUmwbhe3853 [facility] [id number] Albumin/Creatinine mass ratio (U) 6.4 {mg/g_creat} Normal 0.0-30.0 [facility] Work Phone: Comment on above: PATIENT WAS FASTINGP ERFORMED BY: [address] [id number] BY: AUDREY [facility]6370 [facility] [id number] Creatinine mass conc (U) 140.0 mg/dL Normal [facility] Work Phone: Comment on above: PATIENT WAS FASTINGP ERFORMED BY: Lab[address] [id number] BY: AUDREY LabCoShore Memorial HospitalZocgab4791 [facility] [id number] Microscopic ExaminationOrder ed By: Emt I/99 on 12-13-2017 Bacteria LM.HPF #/area (Urine sed) Few Normal [facility] Work Phone: Comment on above: PATIENT WAS FASTINGP ERFORMED BY: AMEE[address] [id number] BY: LabFreeman Cancer Institute Vrjpyu9248 [facility] [id number] Epithelial cells LM.HPF #/area (Urine sed) None seen Normal 0 - 10 [facility] Work Phone: Comment on above: PATIENT WAS FASTINGP ERFORMED BY: Lab[address] [id number] BY: [facility] Lpakpm3156 [address] RoadDublin [place] [id number] Mucus LM Ql (Urine sed) Present Normal [facility] Work Phone: Mucus Ql (Urine sed) Present Normal Comp rehensive Internal Medicine Work Phone: Comment on above: PATIENT WAS FASTINGP ERFORMED BY: LabCo[address] [id number] BY: [facility] Ifqlin2408 [address] RoadDublin [place] [id number] RBC LM.HPF #/area (Urine sed) None seen Normal 0 - 2 [facility] Work Phone: Comment on above: PATIENT WAS FASTINGP ERFORMED BY: Lab[address] [id number] BY: [facility] Timnuq4565 [address] RoadDublin [place] [id number] WBC LM.HPF #/area (Urine sed) 0-5 Normal 0 - 5 [facility] Work Phone: Comment on above: PATIENT WAS FASTINGP ERFORMED BY: Lab[address] [id number] BY: [facility] Qsqhvg9467 [address] RoadDublin [place] [id number] TSH ([id number])Ordered By: Syste m Statistical Methods Professor on 12-13-2017 Thyrotropin Qn 2.050 {uIU/mL} Normal 0.450-4.50 0 [facility] Work Phone: Comment on above: PATIENT WAS FASTINGP ERFORMED BY: Lab[address] [id number] BY: [facility] Qfyztp1476 [address] RoadDublin [place] [id number] URINALYSIS, W/ MICRO ([id number]) Ordered By: Emt I/99 on 12-13-2017 Appearance Nom (U) Clear Normal Compre hensive Internal Medicine Work Phone: Comment on above: PATIENT WAS FASTINGP ERFORMED BY: LabCo[address] [id number] BY: AUDREY [facility] Qkvdsu6173 [address] RoadDublin [place] [id number] Bilirubin Ql (U) Negative Normal Comprehe nsive Internal Medicine Work Phone: Comment on above: PATIENT WAS FASTINGP ERFORMED BY: Lab[address] [id number] BY: AUDREY [facility] Ccvjwj3411 [address] RoadDublin [place] [id number] Bilirubin Ql (U) Negative Normal Comprehe nsive Internal Medicine; [facility] Work Phone: Comment on above: PATIENT WAS FASTINGP ERFORMED BY: Lab[address] [id number] BY: AUDREY [facility] Pvccfe9252 [address] RoadDublin [place] [id number] Color Nom (U) Yellow Normal Comprehensi ve Internal Medicine Work Phone: Comment on above: PATIENT WAS FASTINGP ERFORMED BY: [address] [id number] BY: AUDREY [facility] Sweynb6551 [address] RoadDublin [place] [id number] Glucose Ql (U) Negative Normal Comprehens champ Internal Medicine Work Phone: Comment on above: PATIENT WAS FASTINGP ERFORMED BY: Lab[address] [id number] BY: AUDREY [facility] Vdrjjz0782 [address] RoadDublin [place] [id number] Glucose Ql (U) Negative Normal Comprehens champ Internal Medicine; [facility] Work Phone: Comment on above: PATIENT WAS FASTINGP ERFORMED BY: Lab[address] [id number] BY: AUDREY [facility] Yhsaqd0142 [address] RoadDublin [place] [id number] Hemoglobin Ql (U) Negative Normal Compreh [facility] Work Phone: Comment on above: PATIENT WAS FASTINGP ERFORMED BY: [facility] Aftfsundqp69[address] [id number] BY: AUDREY [facility] Zguorb1788 Johnson RoadDublin [place] [id number] Hemoglobin Ql (U) Negative Normal Compreh ensive [facility]; [facility] Work Phone: Comment on above: PATIENT WAS FASTINGP ERFORMED BY: [facility] Uyxmszcmrs8460[address] [id number] BY: AUDREY [facility] Mbneye7706 Johnson RoadDublin [place] [id number] Hemoglobin Test strip Ql (U) Negative Normal [facility] Work Phone: Ketones Ql (U) Negative Normal Comprehens champ [facility] Medicine Work Phone: Comment on above: PATIENT WAS FASTINGP ERFORMED BY: [facility] Mfxqdbudfb6237[address] [id number] BY: AUDREY [facility] Drzhfg4632 [address] RoadDublin [place] [id number] Ketones Ql (U) Negative Normal Comprehens [facility]; [facility] Work Phone: Comment on above: PATIENT WAS FASTINGP ERFORMED BY: [facility] [address] [id number] BY: AUDREY [facility] Hnvlvr9974 Johnson RoadDublin [place] [id number] Leukocyte esterase Test strip Ql (U) Negative Normal [facility] Work Phone: Comment on above: PATIENT WAS FASTINGP ERFORMED BY: [facility] Yjbldzfkxq2197[address] [id number] BY: CB [facility] Gkzego5221 [address] RoadDublin [place] [id number] Leukocyte esterase Test strip Ql (U) Negative Normal [facility]; [facility] Work Phone: Comment on above: PATIENT WAS FASTINGP ERFORMED BY: [facility] Aedkrtschh050[address] [id number] BY: AUDREY [facility] Eqbbcv0602 [address] RoadDublin [place] [id number] Microscopic observation LM Nom (Urine sed) MICRON Normal [facility] Work Phone: Comment on above: Microscopic follows if indicated. PATIENT WAS FASTINGP ERFORMED BY: [address] [id number] BY: AUDREY [facility] Cwneqz3603 [address] RoadDublin [place] [id number] Microscopic observation LM Nom (Urine sed) See below: Normal [facility] Work Phone: Comment on above: Microscopic was paresh cated and was performed. PATIENT WAS FASTINGP ERFORMED BY: [address] [id number] BY: AUDREY [facility] Mxrvsf2345 [address] RoadDublin [place] [id number] Nitrite Ql (U) Negative Normal Comprehens [facility] Work Phone: Comment on above: PATIENT WAS FASTINGP ERFORMED BY: [address] [id number] BY: AUDREY [facility] Kddrpa5795 [address] RoadDublin [place] [id number] Nitrite Ql (U) Negative Normal Comprehens [facility]; [facility] Work Phone: Comment on above: PATIENT WAS FASTINGP ERFORMED BY: [address] [id number] BY: [facility] Lqphni8017 [address] RoadDublin [place] [id number] Nitrite Test strip Ql (U) Negative Normal [facility] Work Phone: pH (U) 5.0 [pH] Normal 5.0-7.5 [facility] Work Phone: Comment on above: PATIENT WAS FASTINGP ERFORMED BY: [address] [id number] BY: [facility] Aefkvj7241 [address]os[address] RoadDublin [place] [id number] pH Test strip (U) 5.0 [pH] Normal 5.0-7.5 Compreh ensive Internal Medicine Work Phone: Protein Ql (U) Negative Normal Comprehens champ [facility] Work Phone: Comment on above: PATIENT WAS FASTINGP ERFORMED BY: [address] [id number] BY: [facility] Nvgocs8636 [address] RoadDublin [place] [id number] Protein Ql (U) Negative Normal Comprehens [facility]; [facility] Work Phone: Comment on above: PATIENT WAS FASTINGP ERFORMED BY: [address] [id number] BY: AUDREY [facility] Dupese2176 [address] RoadDublin [place] [id number] Protein Test strip Ql (U) Negative Normal [facility] Work Phone: Specific gravity Relative Density (U) 1.017 1 Normal 1.005-1.03 0 [facility] Work Phone: Comment on above: PATIENT WAS FASTINGP ERFORMED BY: [address] [id number] BY: AUDREY [facility] Lbxrth0073 [address] RoadDublin [place] [id number] Urobilinogen (U) [Mass/Vol] 0.2 mg/dL Normal 0.2-1.0 [facility]; [facility] Work Phone: Comment on above: PATIENT WAS FASTINGP ERFORMED BY: [address] [id number] BY: LabJCD Ghzutl2726 [address] RoadDublin [place] [id number] Urobilinogen Test strip mass conc (U) 0.2 mg/dL Normal 0.2-1.0 Comprehensiv e Internal Medicine Work Phone: Comment on above: PATIENT WAS FASTINGP ERFORMED BY: LabCoE[place] [address] [facility] [id number] BY: [facility]6370 [facility] [id number] PSA,Total- DiagnosticOrdered By: Emt I/99 on 04-08-2017 PSA, DIAGNOSTIC 1.85 ng/mL Normal 0.0-4.0 Brittanie [facility] Internal Medicine Work Phone: Comment on above: This test was perfor med using the TPSA assay method for theDimension chemistry system. Values obtained with differentassay methods cannot be used interchangably.When changing PSA assays in the course of monitoring apatient, additional sequential testing should be carriedout to confirm baseline values. PSA,Total- Diagnostic 1.85 ng/mL Normal 0.0-4.0 [facility] Work Phone: Comment on above: This test was perfor med using the TPSA assay method for theDimension chemistry system. Values obtained with differentassay methods cannot be used interchangably.When changing PSA assays in the course of monitoring apatient, additional sequential testing should be carriedout to confirm baseline values. [facility] Zjrxeprpds8421 [facility]. [place], [place], [address] ; Selina CBC W/AUTO DIFF WBC ([id number])O rdered By: Emt I/99 on 03-01-2017 Basophils (Bld) [#/Vol] 0.0 {x10E3/uL} Normal 0.0-0.2 [facility] Work Phone: Comment on above: PATIENT WAS FASTINGP ERFORMED BY: LabCoShore Memorial HospitalSqtlrc9146 [facility] [id number] Basophils (Bld) [#/Vol] 0.0 10*3/uL Normal 0.0-0.2 [facility]; [facility] Work Phone: Comment on above: PATIENT WAS FASTINGP ERFORMED BY: [facility]6370 [facility] [id number] Basophils Auto #/vol (Bld) 0.0 {x10E3/uL} Normal 0.0-0.2 [facility] Work Phone: Basophils/100 WBC (Bld) 1 % Normal [facility] Work Phone: Comment on above: PATIENT WAS FASTINGP ERFORMED BY: AUDREY [place] 6453870 [facility] [id number] Basophils/100 WBC Auto (Bld) 1 % Normal [facility] Work Phone: Eosinophils (Bld) [#/Vol] 0.1 {x10E3/uL} Normal 0.0-0.4 [facility] Work Phone: Comment on above: PATIENT WAS FASTINGP ERFORMED BY: AUDREY LabDanielle [place] 5461570 [facility] [id number] Eosinophils (Bld) [#/Vol] 0.1 10*3/uL Normal 0.0-0.4 [facility]; [facility] Work Phone: Comment on above: PATIENT WAS FASTINGP ERFORMED BY: AUDREY [place] 6453870 [facility] [id number] Eosinophils Auto #/vol (Bld) 0.1 {x10E3/uL} Normal 0.0-0.4 [facility] Work Phone: Eosinophils/100 WBC (Bld) 2 % Normal [facility] Work Phone: Comment on above: PATIENT WAS FASTINGP ERFORMED BY: [place] 3453470 [facility] [id number] Eosinophils/100 WBC Auto (Bld) 2 % Normal [facility] Work Phone: Erythrocyte distribution width (RBC) [Ratio] 13.3 % Normal 12.3-15.4 [facility] Work Phone: Comment on above: PATIENT WAS FASTINGP ERFORMED BY: [place] 3453470 [facility] [id number] Erythrocyte distribution width Auto Ratio (RBC) 13.3 % Normal 12.3-15.4 [facility] Work Phone: Hematocrit (Bld) [Volume fraction] 45.9 % Normal 37.5-51.0 [facility] Work Phone: Comment on above: PATIENT WAS FASTINGP ERFORMED BY: AUDREY [facility] Fjkkny7471 [address] [facility]in [place] [id number] Hematocrit Auto Volume Fraction (Bld) 45.9 % Normal 37.5-51.0 [facility] Work Phone: Hemoglobin mass conc (Bld) 16.2 g/dL Normal 12.6-17.7 [facility] Work Phone: Comment on above: Effective March 04, 2017 the reference interval for Hemoglobin MALES only will be changing to: Males 13-15 years: 12.6 - 17.7 Males >15 years: 13.0 - 17.7 PATIENT WAS FASTINGP ERFORMED BY: AUDREY LabCoShore Memorial HospitalKhbyzc7731 [facility] [id number] Immature granulocytes #/vol (Bld) 0.0 {x10E3/uL} Normal 0.0-0.1 [facility] Work Phone: Comment on above: PATIENT WAS FASTINGP ERFORMED BY: AUDREY [facility] Jzoyfw1375 [address] [facility] [id number] Immature granulocytes (Bld) [#/Vol] 0.0 10*3/uL Normal 0.0-0.1 [facility]; [facility] Work Phone: Comment on above: PATIENT WAS FASTINGP ERFORMED BY: [facility] Uqmhfv5362 [address] [facility]in [place] [id number] Immature granulocytes/100 WBC (Bld) 0 % Normal [facility] Work Phone: Comment on above: PATIENT WAS FASTINGP ERFORMED BY: [facility] Jktjax3186 [address] [facility]in [place] [id number] Lymphocytes (Bld) [#/Vol] 1.7 {x10E3/uL} Normal 0.7-3.1 [facility] Work Phone: Comment on above: PATIENT WAS FASTINGP ERFORMED BY: [facility] Sqikfo3433 [address] [facility]in [place] [id number] Lymphocytes (Bld) [#/Vol] 1.7 10*3/uL Normal 0.7-3.1 [facility]; [facility] Work Phone: Comment on above: PATIENT WAS FASTINGP ERFORMED BY: AUDREY [facility]6370 [facility] [id number] Lymphocytes Auto #/vol (Bld) 1.7 {x10E3/uL} Normal 0.7-3.1 [facility] Work Phone: Lymphocytes/100 WBC (Bld) 29 % Normal [facility] Work Phone: Comment on above: PATIENT WAS FASTINGP ERFORMED BY: [place] 3453470 [facility] [id number] Lymphocytes/100 WBC Auto (Bld) 29 % Normal [facility] Work Phone: MCH (RBC) [Entitic mass] 30.1 pg Normal 26.6-33.0 [facility] Work Phone: Comment on above: PATIENT WAS FASTINGP ERFORMED BY: [place] 3453470 [facility] [id number] MCH Auto Entitic mass (RBC) 30.1 pg Normal 26.6-33.0 [facility] Work Phone: MCHC (RBC) [Mass/Vol] 35.3 g/dL Normal 31.5-35.7 [facility] Work Phone: Comment on above: PATIENT WAS FASTINGP ERFORMED BY: [place] 3453470 [facility] [id number] MCHC Auto mass conc (RBC) 35.3 g/dL Normal 31.5-35.7 [facility] Work Phone: MCV (RBC) [Entitic vol] 85 fL Normal 79-97 [facility] Work Phone: Comment on above: PATIENT WAS FASTINGP ERFORMED BY: [place] 3453470 [facility] [id number] MCV Auto Entitic volume (RBC) 85 fL Normal 79-97 [facility] Work Phone: Monocytes (Bld) [#/Vol] 0.6 {x10E3/uL} Normal 0.1-0.9 [facility] Work Phone: Comment on above: PATIENT WAS FASTINGP ERFORMED BY: [facility] [facility]in [place] [id number] Monocytes (Bld) [#/Vol] 0.6 10*3/uL Normal 0.1-0.9 [facility]; [facility] Work Phone: Comment on above: PATIENT WAS FASTINGP ERFORMED BY: [place] 3453470 [facility] [id number] Monocytes Auto #/vol (Bld) 0.6 {x10E3/uL} Normal 0.1-0.9 [facility] Work Phone: Monocytes/100 WBC (Bld) 10 % Normal [facility] Work Phone: Comment on above: PATIENT WAS FASTINGP ERFORMED BY: [place] 3453470 [facility] [id number] Monocytes/100 WBC Auto (Bld) 10 % Normal [facility] Work Phone: Neutrophils (Bld) [#/Vol] 3.3 {x10E3/uL} Normal 1.4-7.0 [facility] Work Phone: Comment on above: PATIENT WAS FASTINGP ERFORMED BY: [place] 3453470 [facility] [id number] Neutrophils (Bld) [#/Vol] 3.3 10*3/uL Normal 1.4-7.0 [facility]; [facility] Work Phone: Comment on above: PATIENT WAS FASTINGP ERFORMED BY: [place] 3453470 [facility] [id number] Neutrophils Auto #/vol (Bld) 3.3 {x10E3/uL} Normal 1.4-7.0 [facility] Work Phone: Neutrophils/100 WBC (Bld) 58 % Normal [facility] Work Phone: Comment on above: PATIENT WAS FASTINGP ERFORMED BY: CB [facility] Ncsjen7643 [address] RoadDublin [place] [id number] Neutrophils/100 WBC Auto (Bld) 58 % Normal [facility] Work Phone: Platelets (Bld) [#/Vol] 262 {x10E3/uL} Normal 150-379 [facility] Work Phone: Comment on above: PATIENT WAS FASTINGP ERFORMED BY: CB [facility] Kbjfkx1781 [address] RoadDublin [place] [id number] Platelets (Bld) [#/Vol] 262 10*3/uL Normal 150-379 [facility]; [facility] Work Phone: Comment on above: PATIENT WAS FASTINGP ERFORMED BY: CB [facility] Jcvxau1915 [address] RoadDublin [place] [id number] Platelets Auto #/vol (Bld) 262 {x10E3/uL} Normal 150-379 [facility] Work Phone: RBC (Bld) [#/Vol] 5.38 {x10E6/uL} Normal 4.14-5.80 [facility] Internal Medicine Work Phone: Comment on above: PATIENT WAS FASTINGP ERFORMED BY: [facility] Xyysqu6400 [address] RoadDublin [place] [id number] RBC (Bld) [#/Vol] 5.38 10*6/uL Normal 4.14-5.80 [facility] Internal Medicine; [facility] Work Phone: Comment on above: PATIENT WAS FASTINGP ERFORMED BY: CB [facility] Xappno3668 [address] RoadDublin [place] [id number] RBC Auto #/vol (Bld) 5.38 {x10E6/uL} Normal 4.14-5.80 [facility] Internal Medicine Work Phone: WBC (Bld) [#/Vol] 5.8 {x10E3/uL} Normal 3.4-10.8 [facility] Internal Medicine Work Phone: Comment on above: PATIENT WAS FASTINGP ERFORMED BY: AUDREY LabZacarias RazaJwlcih8024 [address] [facility]in [place] [id number] WBC (Bld) [#/Vol] 5.8 10*3/uL Normal 3.4-10.8 [facility] Internal Medicine; [facility] Work Phone: Comment on above: PATIENT WAS FASTINGP ERFORMED BY: AUDREY LabZacarias RazaRahesc0420 [facility] [id number] WBC Auto #/vol (Bld) 5.8 {x10E3/uL} Normal 3.4-10.8 [facility] Work Phone: LIPID PANEL ([id number])Ordered B y: Emt I/99 on 03-01-2017 Cholesterol in HDL mass conc 49 mg/dL Normal [facility] Work Phone: Comment on above: PATIENT WAS FASTINGP ERFORMED BY: AUDREY Razalin6370 [facility] [id number] Cholesterol in LDL mass conc 124 mg/dL Abnormal 0-99 [facility] Work Phone: Comment on above: PATIENT WAS FASTINGP ERFORMED BY: AUDREY LabZacarias RazaIvzfqj3127 [facility] [id number] Cholesterol in LDL/Cholesterol in HDL mass ratio 2.5 {ratio_units} Normal 0.0-3.6 [facility] Work Phone: Comment on above: LDL/HDL Ratio Men Wo men 1/2 Avg.Risk 1.0 1.5 Avg.Risk 3.6 3.2 2X Avg.Risk 6.2 5.0 3X Avg.Risk 8.0 6.1 PATIENT WAS FASTINGP ERFORMED BY: AUDREY LabComadeline Lyfzac9904 [facility]bl[facility] [place] [id number] Cholesterol in VLDL mass conc 16 mg/dL Normal 5-40 [facility] Work Phone: Comment on above: PATIENT WAS FASTINGP ERFORMED BY: AUDREY LabZacarias RazaLsneyg3723 [address] [facility]in [place] [id number] Cholesterol mass conc 189 mg/dL Normal 100-199 [facility] Work Phone: Comment on above: PATIENT WAS FASTINGP ERFORMED BY: AUDREY [facility] Hilmrz9863 [address] RoadDublin [place] [id number] Triglyceride mass conc 82 mg/dL Normal 0-149 [facility] Work Phone: Comment on above: PATIENT WAS FASTINGP ERFORMED BY: CB [facility] Ppxiqj1314 [address] RoadDublin [place] [id number] METABOLIC PANEL, COMPREHENSI VE ([id number])Ordered By: Emt I/99 on 03-01-2017 Albumin mass conc 4.6 g/dL Normal 3.6-4.8 Compreh ensive Internal Medicine Work Phone: Comment on above: PATIENT WAS FASTINGP ERFORMED BY: [facility] Cydgdm1373 [address] RoadDublin [place] [id number] Albumin/Globulin mass ratio 2.2 {ratio} Normal 1.2-2.2 [facility] Work Phone: Comment on above: PATIENT WAS FASTINGP ERFORMED BY: [facility] Aqueuh0602 [address] Roadblin [place] [id number] ALP [Catalytic activity/Vol] 77 U/L Normal 39-117 [facility]; [facility] Work Phone: Comment on above: PATIENT WAS FASTINGP ERFORMED BY: [facility] Rbynqe4750 [address] RoadDublin [place] [id number] ALP enzyme act/vol 77 [iU]/L Normal 39-117 [facility] Internal Medicine Work Phone: Comment on above: PATIENT WAS FASTINGP ERFORMED BY: [facility] Csfzkq3414 [address] RoadDublin [place] [id number] ALT [Catalytic activity/Vol] 20 U/L Normal 0-44 [facility]; [facility] Work Phone: Comment on above: PATIENT WAS FASTINGP ERFORMED BY: CB [facility] Stbxgv4325 [address] RoadDublin [place] [id number] ALT enzyme act/vol 20 [iU]/L Normal 0-44 [facility] Internal Medicine Work Phone: Comment on above: PATIENT WAS FASTINGP ERFORMED BY: AUDREY LabComadeline RazaZcdohm5122 [address] RoadDublin [place] [id number] AST [Catalytic activity/Vol] 20 U/L Normal 0-40 [facility]; [facility] Work Phone: Comment on above: PATIENT WAS FASTINGP ERFORMED BY: AUDREY LabZacarias RazaWknsex4959 [address] RoadDublin [place] [id number] AST enzyme act/vol 20 [iU]/L Normal 0-40 Compre hensive Internal Medicine Work Phone: Comment on above: PATIENT WAS FASTINGP ERFORMED BY: AUDREY LabComadeline RazaKxehvt9306 [address] RoadDublin [place] [id number] Bilirubin mass conc 1.2 mg/dL Normal 0.0-1.2 Compr ensive Internal Medicine Work Phone: Comment on above: PATIENT WAS FASTINGP ERFORMED BY: AUDREY Fu6370 [address] RoadDublin [place] [id number] Calcium mass conc 9.8 mg/dL Normal 8.6-10.2 Compreh ensive Internal Medicine Work Phone: Comment on above: PATIENT WAS FASTINGP ERFORMED BY: AUDREY Fu6370 [address] RoadDublin [place] [id number] Chloride molar conc 101 mmol/L Normal 96-106 Compr ensive Internal Medicine Work Phone: Comment on above: PATIENT WAS FASTINGP ERFORMED BY: AUDREY LabZacarias RazaCbukhj1534 [address] RoadDublin [place] [id number] CO2 molar conc 23 mmol/L Normal 18-29 Comprehens champ Internal Medicine Work Phone: Comment on above: PATIENT WAS FASTINGP ERFORMED BY: AUDREY LabComadeline Ddrbvl5993 [address] RoadDublin [place] [id number] Creatinine mass conc 1.10 mg/dL Normal 0.76-1.27 Comp [facility] Work Phone: Comment on above: PATIENT WAS FASTINGP ERFORMED BY: AUDREY LabZacarias RazaFjqrzd1718 [address] RoadDublin [place] [id number] GFR/1.73 sq M predicted among blacks CKD-EPI vol rate/area (S/P/Bld) 81 mL/min/1.73 Normal Comprehensiv e Internal Medicine Work Phone: Comment on above: PATIENT WAS FASTINGP ERFORMED BY: CB [facility] Dylerf6641 [address] RoadDublin [place] [id number] GFR/1.73 sq M predicted among non-blacks CKD-EPI vol rate/area (S/P/Bld) 70 mL/min/1.73 Normal [facility] Work Phone: Comment on above: PATIENT WAS FASTINGP ERFORMED BY: CB [facility] Xkqmng3054 [address] RoadDublin [place] [id number] Globulin (S) [Mass/Vol] 2.1 g/dL Normal 1.5-4.5 [facility] Work Phone: Comment on above: PATIENT WAS FASTINGP ERFORMED BY: CB [facility] Bnwerv7510 [address] RoadC[facility] Health Med[facility] High Pointin [place] [id number] Globulin Calculated mass conc (S) 2.1 g/dL Normal 1.5-4.5 [facility] Work Phone: Glucose mass conc 88 mg/dL Normal 65-99 Compreh ensive Internal Medicine Work Phone: Comment on above: PATIENT WAS FASTINGP ERFORMED BY: CB [facility] Htzqge1609 [address] [facility]in [place] [id number] Potassium molar conc 4.7 mmol/L Normal 3.5-5.2 Comp rehensive Internal Medicine Work Phone: Comment on above: PATIENT WAS FASTINGP ERFORMED BY: CB [facility] Gobpjd1483 [address] [facility]in [place] [id number] Protein mass conc 6.7 g/dL Normal 6.0-8.5 Compreh ensive Internal Medicine Work Phone: Comment on above: PATIENT WAS FASTINGP ERFORMED BY: CB [facility] Djlfii2391 [facility] Hospitalblin [place] [id number] Sodium molar conc 140 mmol/L Normal 134-144 Compreh ensive Internal Medicine Work Phone: Comment on above: PATIENT WAS FASTINGP ERFORMED BY: AUDREY Razalin6370 [facility] Hospitalbl[facility] [place] [id number] Urea nitrogen mass conc 20 mg/dL Normal 8-27 [facility] Work Phone: Comment on above: PATIENT WAS FASTINGP ERFORMED BY: AUDREY Fu6370 [address] [facility]in [place] [id number] Urea nitrogen/Creatinine mass ratio 18 mg/mg Normal 10-24 [facility] Work Phone: Comment on above: PATIENT WAS FASTINGP ERFORMED BY: AUDREY Razalin6370 [address] [facility]in [place] [id number] MICROALBUMINOrdered By: Syst em Statistical Methods Professor on 03-01-2017 Albumin DL <= 20 mg/L mass conc (U) 17.3 ug/mL Normal [facility] Work Phone: Comment on above: PATIENT WAS FASTINGP ERFORMED BY: AUDREY Fu6370 [address] [facility] [id number] Albumin/Creatinine mass ratio (U) 7.6 {mg/g_creat} Normal 0.0-30.0 [facility] Work Phone: Comment on above: PATIENT WAS FASTINGP ERFORMED BY: AUDREY Razalin6370 [facility] [place] [id number] Creatinine mass conc (U) 228.3 mg/dL Normal [facility] Work Phone: Comment on above: PATIENT WAS FASTINGP ERFORMED BY: AUDREY Razalin[address] [facility]in [place] [id number] Microscopic ExaminationOrder ed By: Emt I/99 on 03-01-2017 Bacteria LM.HPF #/area (Urine sed) None seen Normal [facility] Work Phone: Comment on above: PATIENT WAS FASTINGP ERFORMED BY: AUDREY Razalin6370 [facility] Hospitalbl[facility] [place] [id number] Casts LM Nom (Urine sed) Hyaline casts Normal [facility] Work Phone: Comment on above: PATIENT WAS FASTINGP ERFORMED BY: CB [facility] Sbdfkr7278 [address] RoadDublin [place] [id number] Casts LM Ql (Urine sed) Present Abnormal [facility] Work Phone: Comment on above: PATIENT WAS FASTINGP ERFORMED BY: AUDREY [facility] Drqtao5923 [address] RoadDublin [place] [id number] Epithelial cells LM.HPF #/area (Urine sed) 0-10 Normal 0 - 10 [facility] Work Phone: Comment on above: PATIENT WAS FASTINGP ERFORMED BY: AUDREY [facility] Ccufix8249 [address] RoadDublin [place] [id number] Mucus LM Ql (Urine sed) Present Normal [facility] Work Phone: Mucus Ql (Urine sed) Present Normal Comp rehensive Internal Medicine Work Phone: Comment on above: PATIENT WAS FASTINGP ERFORMED BY: AUDREY LabComadeline RazaMfgvxz3857 [address] RoadDublin [place] [id number] RBC LM.HPF #/area (Urine sed) 0-2 Normal 0 - 2 [facility] Work Phone: Comment on above: PATIENT WAS FASTINGP ERFORMED BY: AUDREY [facility] Fiymbi8431 [address] RoadDublin [place] [id number] WBC LM.HPF #/area (Urine sed) 0-5 Normal 0 - 5 [facility] Work Phone: Comment on above: PATIENT WAS FASTINGP ERFORMED BY: AUDREY [facility] Wburdd8766 Johnson RoadDublin [place] [id number] URINALYSIS, W/ MICRO ([id number]) Ordered By: Emt I/99 on 03-01-2017 Appearance Nom (U) Clear Normal Compre hensive Internal Medicine Work Phone: Comment on above: PATIENT WAS FASTINGP ERFORMED BY: AUDREY [facility] Mgayfn5269 [address] RoadDublin [place] [id number] Bilirubin Ql (U) Negative Normal Comprehe nsive Internal Medicine Work Phone: Comment on above: PATIENT WAS FASTINGP ERFORMED BY: AUDREY [facility] Uakscw1264 [address] RoadDublin [place] [id number] Bilirubin Ql (U) Negative Normal Comprehe nsive Internal Medicine; [facility] Work Phone: Comment on above: PATIENT WAS FASTINGP ERFORMED BY: AUDREY Fu6370 [address] RoadDublin [place] [id number] Color Nom (U) Yellow Normal Comprehensi ve Internal Medicine Work Phone: Comment on above: PATIENT WAS FASTINGP ERFORMED BY: AUDREY Portillo70 [address] RoadDublin [place] [id number] Glucose Ql (U) Negative Normal Comprehens champ Internal Medicine Work Phone: Comment on above: PATIENT WAS FASTINGP ERFORMED BY: AUDREY Bourne Johnson RoadDublin [place] [id number] Glucose Ql (U) Negative Normal Comprehens champ [facility]; [facility] Work Phone: Comment on above: PATIENT WAS FASTINGP ERFORMED BY: AUDREY Bourne [address] RoadDublin [place] [id number] Hemoglobin Ql (U) Negative Normal Compreh ensive Internal Medicine Work Phone: Comment on above: PATIENT WAS FASTINGP ERFORMED BY: AUDREY Portillo70 [address] RoadDublin [place] [id number] Hemoglobin Ql (U) Negative Normal Compreh ensive Internal Medicine; [facility] Work Phone: Comment on above: PATIENT WAS FASTINGP ERFORMED BY: AUDREY Bourne Johnson RoadDublin [place] [id number] Hemoglobin Test strip Ql (U) Negative Normal [facility] Work Phone: Ketones Ql (U) Trace Abnormal Comprehens champ Internal Medicine Work Phone: Comment on above: PATIENT WAS FASTINGP ERFORMED BY: AUDREY Fu6370 [address] RoadDublin [place] [id number] Leukocyte esterase Test strip Ql (U) Negative Normal [facility] Work Phone: Comment on above: PATIENT WAS FASTINGP ERFORMED BY: AUDREY Portillo70 [address] RoadDublin [place] [id number] Leukocyte esterase Test strip Ql (U) Negative Normal [facility]; [facility] Work Phone: Comment on above: PATIENT WAS FASTINGP ERFORMED BY: AUDREY Fu6[address] [facility] [id number] Microscopic observation LM Nom (Urine sed) See below: Normal [facility] Work Phone: Comment on above: Microscopic was paresh cated and was performed. PATIENT WAS FASTINGP ERFORMED BY: AUDREY Razalin6370 [address] [facility] [id number] Microscopic observation LM Nom (Urine sed) MICRON Normal [facility] Work Phone: Comment on above: Microscopic follows if indicated. PATIENT WAS FASTINGP ERFORMED BY: AUDREY Razalin6[address] [facility] [id number] Nitrite Ql (U) Negative Normal Comprehens champ Internal Medicine Work Phone: Comment on above: PATIENT WAS FASTINGP ERFORMED BY: AUDREY Fu6[address] [facility] [id number] Nitrite Ql (U) Negative Normal Comprehens champ [facility] Medicine; [facility] Work Phone: Comment on above: PATIENT WAS FASTINGP ERFORMED BY: AUDREY Fu6370 [facility] [id number] Nitrite Test strip Ql (U) Negative Normal [facility] Work Phone: pH (U) 5.0 [pH] Normal 5.0-7.5 [facility] Work Phone: Comment on above: PATIENT WAS FASTINGP ERFORMED BY: AUDREY LabZacarias RazaOilrfm7793 [address] [facility] [id number] pH Test strip (U) 5.0 [pH] Normal 5.0-7.5 Compreh ensive Internal Medicine Work Phone: Protein Ql (U) Negative Normal Comprehens champ Internal Medicine Work Phone: Comment on above: PATIENT WAS FASTINGP ERFORMED BY: AUDREY Razalin6370 [facility] [id number] Protein Ql (U) Negative Normal Comprehens champ Internal Medicine; [facility] Work Phone: Comment on above: PATIENT WAS FASTINGP ERFORMED BY: [facility] Nicvyh9318 [facility] [id number] Protein Test strip Ql (U) Negative Normal [facility] Work Phone: Specific gravity Relative Density (U) 1.026 1 Normal 1.005-1.03 0 [facility] Work Phone: Comment on above: PATIENT WAS FASTINGP ERFORMED BY: [facility] Wvlrnv3473 [facility] [id number] Urobilinogen (U) [Mass/Vol] 0.2 mg/dL Normal 0.2-1.0 [facility]; [facility] Work Phone: Comment on above: PATIENT WAS FASTINGP ERFORMED BY: [facility] Bjkmhk4198 [facility] [id number] Urobilinogen Test strip mass conc (U) 0.2 mg/dL Normal 0.2-1.0 Comprehensiv e Internal Medicine Work Phone: Comment on above: PATIENT WAS FASTINGP ERFORMED BY: [facility] Vhgrlh0205 [facility] [id number] PSA,Total - Annual ScreenOrd ered By: Emt I/99 on 08-28-2016 Prostate specific Ag mass conc 1.81 ng/mL Normal 0.00-4.00 [facility] Work Phone: Comment on above: This test was perfor med using the TPSA assay method for theWingu chemistry system. Values obtained with differentassay methods cannot be used interchangably.When changing PSA assays in the course of monitoring apatient, additional sequential testing should be carriedout to confirm baseline values. [facility] Zxwympjeib[address] [place], [place], [id number] Fecal Occult Blood , Office ([id number])Ordered By: Adan Gamble on 01-26-2016 Hemoglobin.gastroint estinal Ql (St) Negative Normal [facility] Work Phone: Hemoglobin.gastroint estinal Ql (Stl) Negative Normal [facility]; [facility] Work Phone: PSA,Total- DiagnosticOrdered By: Emt I/99 on 05-23-2015 PSA, DIAGNOSTIC 3.72 ng/mL Normal 0.0-4.0 Brittanie [facility] Internal Medicine Work Phone: Comment on above: This test was perfor med using the TPSA assay method for theDimension chemistry system. Values obtained with differentassay methods cannot be used interchangably.When changing PSA assays in the course of monitoring apatient, additional sequential testing should be carriedout to confirm baseline values. PSA,Total- Diagnostic 3.72 ng/mL Normal 0.0-4.0 [facility] Work Phone: Comment on above: This test was perfor med using the TPSA assay method for theDimension chemistry system. Values obtained with differentassay methods cannot be used interchangably.When changing PSA assays in the course of monitoring apatient, additional sequential testing should be carriedout to confirm baseline values. [facility] Moutnalymb1483 [facility]. [place], [place], [address] PSA, TOTAL - DIAGNOSTIC ([phone])Ordered By: Emt I/99 on 03-23-2015 Prostate specific Ag mass conc 4.4 ng/mL Abnormal 0.0-4.0 [facility] Work Phone: Comment on above: Mike ECLIA methodol ogy. .According to the [employer], Serum PSA shoulddecrease and remain at undetectable levels after radicalprostatectomy. The AUA defines biochemical recurrence as an initialPSA value 0.2 ng/mL or greater followed by a subsequent confirmatoryPSA value 0.2 ng/mL or greater.Values obtained with different assay methods or kits cannot be usedinterchangeably. Results cannot be interpreted as absolute evidenceof the presence or absence of malignant disease. PATIENT NOT FASTINGP ERFORMED BY: LabCoShore Memorial HospitalQnpwhv9862 [facility] [id number] Information: [id number] C-DIFFICILE, STOOL (78509)Or dered By: Emt I/99 on 03-21-2015 C. difficile toxin A+B IA Ql (St) Negative Normal [facility] Work Phone: Comment on above: PATIENT NOT FASTINGP ERFORMED BY: LabCoShore Memorial HospitalTumpte1898 [facility] [id number] Information: [id number] C. difficile toxin A+B IA Ql (Stl) Negative Normal [facility]; [facility] Work Phone: Comment on above: PATIENT NOT FASTINGP ERFORMED BY: Lab[address] [id number] Information: [id number] CBC WITH MANUAL DIFF (62261) Ordered By: Emt I/99 on 03-21-2015 Basophils (Bld) [#/Vol] 0.1 {x10E3/uL} Normal 0.0-0.2 [facility] Work Phone: Comment on above: PATIENT NOT FASTINGP ERFORMED BY: LabDanielle Ville [id number] [facility] [id number] Information: [id number] Basophils (Bld) [#/Vol] 0.1 10*3/uL Normal 0.0-0.2 [facility]; [facility] Work Phone: Comment on above: PATIENT NOT FASTINGP ERFORMED BY: LabDanielle V[place] 5461570 [facility] [id number] Information: [id number],[id number] Basophils Auto #/vol (Bld) 0.1 {x10E3/uL} Normal 0.0-0.2 [facility] Work Phone: Basophils/100 WBC (Bld) 1 % Normal [facility] Work Phone: Comment on above: PATIENT NOT FASTINGP ERFORMED BY: LabCoShawn Ville 8230070 [facility] [id number] Information: [id number] Basophils/100 WBC Auto (Bld) 1 % Normal [facility] Work Phone: Eosinophils (Bld) [#/Vol] 0.2 {x10E3/uL} Normal 0.0-0.4 [facility] Work Phone: Comment on above: PATIENT NOT FASTINGP ERFORMED BY: AUDREY Razalin6370 [facility] [id number] Information: 120396,[id number] Eosinophils (Bld) [#/Vol] 0.2 10*3/uL Normal 0.0-0.4 [facility]; [facility] Work Phone: Comment on above: PATIENT NOT FASTINGP ERFORMED BY: [place] 3453470 [facility] [id number] Information: 188146,[id number] Eosinophils Auto #/vol (Bld) 0.2 {x10E3/uL} Normal 0.0-0.4 [facility] Work Phone: Eosinophils/100 WBC (Bld) 2 % Normal [facility] Work Phone: Comment on above: PATIENT NOT FASTINGP ERFORMED BY: [place] 3453470 [facility] [id number] Information: [id number] Eosinophils/100 WBC Auto (Bld) 2 % Normal [facility] Work Phone: Erythrocyte distribution width (RBC) [Ratio] 13.7 % Normal 12.3-15.4 [facility] Work Phone: Comment on above: PATIENT NOT FASTINGP ERFORMED BY: [address] [id number] Information: [id number] Erythrocyte distribution width Auto Ratio (RBC) 13.7 % Normal 12.3-15.4 [facility] Work Phone: Hematocrit (Bld) [Volume fraction] 47.0 % Normal 37.5-51.0 [facility] Work Phone: Comment on above: PATIENT NOT FASTINGP ERFORMED BY: [address] [id number] Information: [id number] Hematocrit Auto Volume Fraction (Bld) 47.0 % Normal 37.5-51.0 [facility] Work Phone: Hemoglobin mass conc (Bld) 16.2 g/dL Normal 12.6-17.7 [facility] Work Phone: Comment on above: PATIENT NOT FASTINGP ERFORMED BY: [address] [id number] Information: [id number] Immature granulocytes #/vol (Bld) 0.0 {x10E3/uL} Normal 0.0-0.1 [facility] Work Phone: Comment on above: PATIENT NOT FASTINGP ERFORMED BY: [address] [id number] Information: [id number] Immature granulocytes (Bld) [#/Vol] 0.0 10*3/uL Normal 0.0-0.1 [facility]; [facility] Work Phone: Comment on above: PATIENT NOT FASTINGP ERFORMED BY: [address] [id number] Information: [id number] Immature granulocytes/100 WBC (Bld) 0 % Normal [facility] Work Phone: Comment on above: PATIENT NOT FASTINGP ERFORMED BY: [address] [id number] Information: 484174,[id number] Lymphocytes (Bld) [#/Vol] 2.0 {x10E3/uL} Normal 0.7-3.1 [facility] Work Phone: Comment on above: PATIENT NOT FASTINGP ERFORMED BY: [address] [id number] Information: [id number] Lymphocytes (Bld) [#/Vol] 2.0 10*3/uL Normal 0.7-3.1 [facility]; [facility] Work Phone: Comment on above: PATIENT NOT FASTINGP ERFORMED BY: AUDREY [facility]joFre[facility] Institute Spxrjc5897 [facility] [id number] Information: [id number],[id number] Lymphocytes Auto #/vol (Bld) 2.0 {x10E3/uL} Normal 0.7-3.1 [facility] Work Phone: Lymphocytes/100 WBC (Bld) 20 % Normal [facility] Work Phone: Comment on above: PATIENT NOT FASTINGP ERFORMED BY: AUDREY [place] 6453870 [facility] [id number] Information: [id number] Lymphocytes/100 WBC Auto (Bld) 20 % Normal [facility] Work Phone: MCH (RBC) [Entitic mass] 29.6 pg Normal 26.6-33.0 [facility] Work Phone: Comment on above: PATIENT NOT FASTINGP ERFORMED BY: AUDREY [place] 6453870 [facility] [id number] Information: [id number] MCH Auto Entitic mass (RBC) 29.6 pg Normal 26.6-33.0 [facility] Work Phone: MCHC (RBC) [Mass/Vol] 34.5 g/dL Normal 31.5-35.7 [facility] Work Phone: Comment on above: PATIENT NOT FASTINGP ERFORMED BY: [place] 3453470 [facility] [id number] Information: 355331,[id number] MCHC Auto mass conc (RBC) 34.5 g/dL Normal 31.5-35.7 [facility] Work Phone: MCV (RBC) [Entitic vol] 86 fL Normal 79-97 [facility] Work Phone: Comment on above: PATIENT NOT FASTINGP ERFORMED BY: [address] [id number] Information: [id number] MCV Auto Entitic volume (RBC) 86 fL Normal 79-97 [facility] Work Phone: Monocytes (Bld) [#/Vol] 0.7 {x10E3/uL} Normal 0.1-0.9 [facility] Work Phone: Comment on above: PATIENT NOT FASTINGP ERFORMED BY: [address] [id number] Information: [id number] Monocytes (Bld) [#/Vol] 0.7 10*3/uL Normal 0.1-0.9 [facility]; [facility] Work Phone: Comment on above: PATIENT NOT FASTINGP ERFORMED BY: [address] [id number] Information: 328574,[id number] Monocytes Auto #/vol (Bld) 0.7 {x10E3/uL} Normal 0.1-0.9 [facility] Work Phone: Monocytes/100 WBC (Bld) 7 % Normal [facility] Work Phone: Comment on above: PATIENT NOT FASTINGP ERFORMED BY: [place] 3453470 [facility] [id number] Information: [id number] Monocytes/100 WBC Auto (Bld) 7 % Normal [facility] Work Phone: Neutrophils (Bld) [#/Vol] 7.1 {x10E3/uL} Abnormal 1.4-7.0 [facility] Work Phone: Comment on above: PATIENT NOT FASTINGP ERFORMED BY: [address] [id number] Information: [id number] Neutrophils (Bld) [#/Vol] 7.1 10*3/uL Abnormal 1.4-7.0 [facility]; [facility] Work Phone: Comment on above: PATIENT NOT FASTINGP ERFORMED BY: AUDREY DhillonFreeman Cancer Institute Upmihn7144 [facility] [id number] Information: [id number],[id number] Neutrophils Auto #/vol (Bld) 7.1 {x10E3/uL} Abnormal 1.4-7.0 [facility] Work Phone: Neutrophils/100 WBC (Bld) 70 % Normal [facility] Work Phone: Comment on above: PATIENT NOT FASTINGP ERFORMED BY: [place] 3453470 [facility] [id number] Information: [id number] Neutrophils/100 WBC Auto (Bld) 70 % Normal [facility] Work Phone: Platelets (Bld) [#/Vol] 411 {x10E3/uL} Abnormal 150-379 [facility] Work Phone: Comment on above: PATIENT NOT FASTINGP ERFORMED BY: [facility] Yvmqwy8002 [facility] [id number] Information: [id number] Platelets (Bld) [#/Vol] 411 10*3/uL Abnormal 150-379 [facility]; [facility] Work Phone: Comment on above: PATIENT NOT FASTINGP ERFORMED BY: AUDREY [place] 6453870 [facility] [id number] Information: [id number] Platelets Auto #/vol (Bld) 411 {x10E3/uL} Abnormal 150-379 [facility] Work Phone: RBC (Bld) [#/Vol] 5.48 {x10E6/uL} Normal 4.14-5.80 [facility] Internal Medicine Work Phone: Comment on above: PATIENT NOT FASTINGP ERFORMED BY: AUDREY [place] 6453870 [facility] [id number] Information: [id number] RBC (Bld) [#/Vol] 5.48 10*6/uL Normal 4.14-5.80 [facility] Internal Medicine; [facility] Work Phone: Comment on above: PATIENT NOT FASTINGP ERFORMED BY: AUDREY Corwin Portillo70 [facility] [id number] Information: [id number] RBC Auto #/vol (Bld) 5.48 {x10E6/uL} Normal 4.14-5.80 [facility] Work Phone: WBC (Bld) [#/Vol] 10.1 {x10E3/uL} Normal 3.4-10.8 [facility] Internal Medicine Work Phone: Comment on above: PATIENT NOT FASTINGP ERFORMED BY: AUDREY Nonamadeline Xycfmk8931 [facility] [id number] Information: [id number] WBC (Bld) [#/Vol] 10.1 10*3/uL Normal 3.4-10.8 [facility] Internal Medicine; [facility] Internal Medicine Work Phone: Comment on above: PATIENT NOT FASTINGP ERFORMED BY: AUDREY Nona Czgmla7506 [facility] [id number] Information: [id number] WBC Auto #/vol (Bld) 10.1 {x10E3/uL} Normal 3.4-10.8 [facility] Internal Medicine Work Phone: URINALYSIS (12654)Ordered By : Emt I/99 on 03-21-2015 Appearance Nom (U) Clear Normal [facility] Internal Medicine Work Phone: Comment on above: PATIENT NOT FASTINGP ERFORMED BY: AUDREY [facility] Ralpjn5830 [facility] [id number] Information: [id number] Bilirubin Ql (U) Negative Normal Comprehe [facility] Internal Medicine Work Phone: Comment on above: PATIENT NOT FASTINGP ERFORMED BY: AUDREY [facility] Finjwl1395 [facility] [id number] Information: [id number] Bilirubin Ql (U) Negative Normal Comprehe nsive Internal Medicine; [facility] Work Phone: Comment on above: PATIENT NOT FASTINGP ERFORMED BY: AUDREY Corwin Fu6370 [address] Roadblin [place] [id number] Information: [id number] Color Nom (U) Yellow Normal Comprehensi ve Internal Medicine Work Phone: Comment on above: PATIENT NOT FASTINGP ERFORMED BY: AUDREY Razalin6370 [address] RoadSedgwick [place] [id number] Information: [id number] Glucose Ql (U) Negative Normal Comprehens champ Internal Medicine Work Phone: Comment on above: PATIENT NOT FASTINGP ERFORMED BY: AUDREY Nona Mucafa8179 Johnson RoadSedgwick [place] [id number] Information: [id number] Glucose Ql (U) Negative Normal Comprehens champ Internal Medicine; [facility] Work Phone: Comment on above: PATIENT NOT FASTINGP ERFORMED BY: AUDREY Nona Olttxo2352 Johnson RoadFormerly [facility] [id number] Information: [id number] Hemoglobin Ql (U) Negative Normal Compreh ensive Internal Medicine Work Phone: Comment on above: PATIENT NOT FASTINGP ERFORMED BY: AUDREY Nona Ugwtss9147 [address] RoadFormerly [facility] [id number] Information: [id number] Hemoglobin Ql (U) Negative Normal Compreh ensive Internal Medicine; [facility] Work Phone: Comment on above: PATIENT NOT FASTINGP ERFORMED BY: AUDREY AlejoDanielle V[place] [id number] [address] RoadC[facility] Med[facility] Pointin [place] [id number] Information: [id number] Hemoglobin Test strip Ql (U) Negative Normal [facility] Work Phone: Ketones Ql (U) Negative Normal Comprehens champ Internal Medicine Work Phone: Comment on above: PATIENT NOT FASTINGP ERFORMED BY: AUDREY [facility] Eraczg1530 [address] RoadDuin [place] [id number] Information: [id number] Ketones Ql (U) Negative Normal Comprehens champ [facility] Medicine; [facility] Work Phone: Comment on above: PATIENT NOT FASTINGP ERFORMED BY: AUDREY Corwin Fu6370 [address] RoadDublin [place] [id number] Information: [id number] Leukocyte esterase Test strip Ql (U) Negative Normal [facility] Work Phone: Comment on above: PATIENT NOT FASTINGP ERFORMED BY: AUDREY [facility] Ajdisl0595 [address] RoadDublin [place] [id number] Information: [id number] Leukocyte esterase Test strip Ql (U) Negative Normal [facility]; [facility] Work Phone: Comment on above: PATIENT NOT FASTINGP ERFORMED BY: AUDREY LabComadeline RazaKdezes4684 [address] [facility] Hospitalin [place] [id number] Information: [id number] Microscopic observation LM Nom (Urine sed) MICNIP Normal [facility] Work Phone: Comment on above: Microscopic not paresh cated and not performed. PATIENT NOT FASTINGP ERFORMED BY: AUDREY LabComadeline RazaZweoju1605 [address] [facility] [id number] Information: I50060 Nitrite Ql (U) Negative Normal Comprehens champ Internal Medicine Work Phone: Comment on above: PATIENT NOT FASTINGP ERFORMED BY: AUDREY LabComadeline RazaMsptsh5174 [address] [facility] [id number] Information: [id number] Nitrite Ql (U) Negative Normal Comprehens champ [facility]; [facility] Work Phone: Comment on above: PATIENT NOT FASTINGP ERFORMED BY: AUDREY [facility] Ewclym4084 Johnson RoadCone Health Medcenter [place] Pointin [place] [id number] Information: [id number] Nitrite Test strip Ql (U) Negative Normal [facility] Work Phone: pH (U) 5.5 [pH] Normal 5.0-7.5 [facility] Work Phone: Comment on above: PATIENT NOT FASTINGP ERFORMED BY: AUDREY [facility] Pcimcg6121 [address] [facility] [place] [id number] Information: [id number] pH Test strip (U) 5.5 [pH] Normal 5.0-7.5 Compreh ensive Internal Medicine Work Phone: Protein Ql (U) Negative Normal Comprehens champ Internal Medicine Work Phone: Comment on above: PATIENT NOT FASTINGP ERFORMED BY: AUDREY Clemons Eegats2380 [facility] [id number] Information: [id number] Protein Ql (U) Negative Normal Comprehens champ [facility] Medicine; [facility] Work Phone: Comment on above: PATIENT NOT FASTINGP ERFORMED BY: AUDREY Clemons Lzeigh2187 [facility] [id number] Information: [id number] Protein Test strip Ql (U) Negative Normal [facility] Work Phone: Specific gravity Relative Density (U) 1.022 1 Normal 1.005-1.03 0 [facility] Work Phone: Comment on above: PATIENT NOT FASTINGP ERFORMED BY: [facility]joAscension [facility] Hospital6370 [facility] [id number] Information: [id number] Urobilinogen (U) [Mass/Vol] 0.2 mg/dL Normal 0.2-1.0 [facility]; [facility] Work Phone: Comment on above: PATIENT NOT FASTINGP ERFORMED BY: AlejoFreeman Cancer Institute Lskaxd1135 [facility] [id number] Information: [id number] Urobilinogen Test strip mass conc (U) 0.2 mg/dL Normal 0.2-1.0 Comprehensiv e Internal Medicine Work Phone: Comment on above: PATIENT NOT FASTINGP ERFORMED BY: AUDREY Clemons Auasss7228 [facility] [id number] Information: [id number] URINE TURNER C[place]URE[place] ([id number])Ordered By: Emt I/99 on 03-21-2015 Bacteria identified Cx Nom (U) [id number] Normal [facility] Work Phone: Comment on above: No growth in 36 - 48 hours. PATIENT NOT FASTINGP ERFORMED BY: AUDREY DhillonDanielle [place] [id number] [facility] [id number] Bacteria identified Cx Nom (U) Final report Normal [facility] Work Phone: Comment on above: PATIENT NOT FASTINGP ERFORMED BY: [address] [id number] CBC W/AUTO DIFF WBC ([id number])O rdered By: Emt I/99 on 03-14-2015 Basophils (Bld) [#/Vol] 0.1 {x10E3/uL} Normal 0.0-0.2 [facility] Work Phone: Comment on above: PATIENT NOT FASTINGP ERFORMED BY: [address] [id number] Information: [id number], NURSE DRAW Basophils (Bld) [#/Vol] 0.1 10*3/uL Normal 0.0-0.2 [facility]; [facility] Work Phone: Comment on above: PATIENT NOT FASTINGP ERFORMED BY: Alejo[address] [id number] Information: [id number], NURSE DRAW Basophils Auto #/vol (Bld) 0.1 {x10E3/uL} Normal 0.0-0.2 [facility] Work Phone: Basophils/100 WBC (Bld) 1 % Normal [facility] Work Phone: Comment on above: PATIENT NOT FASTINGP ERFORMED BY: [facility]6370 [facility] [id number] Information: [id number], NURSE DRAW Basophils/100 WBC Auto (Bld) 1 % Normal [facility] Work Phone: Eosinophils (Bld) [#/Vol] 0.2 {x10E3/uL} Normal 0.0-0.4 [facility] Work Phone: Comment on above: PATIENT NOT FASTINGP ERFORMED BY: A[place]Y DhillonCoShawn [place] [id number] [facility] [id number] Information: [id number], NURSE DRAW Eosinophils (Bld) [#/Vol] 0.2 10*3/uL Normal 0.0-0.4 [facility]; [facility] Work Phone: Comment on above: PATIENT NOT FASTINGP ERFORMED BY: AUDREY Dhillon[address] [id number] Information: [id number], NURSE DRAW Eosinophils Auto #/vol (Bld) 0.2 {x10E3/uL} Normal 0.0-0.4 [facility] Work Phone: Eosinophils/100 WBC (Bld) 2 % Normal [facility] Work Phone: Comment on above: PATIENT NOT FASTINGP ERFORMED BY: [address] [id number] Information: [id number], NURSE DRAW Eosinophils/100 WBC Auto (Bld) 2 % Normal [facility] Work Phone: Erythrocyte distribution width (RBC) [Ratio] 13.5 % Normal 12.3-15.4 [facility] Work Phone: Comment on above: PATIENT NOT FASTINGP ERFORMED BY: AUDREY Dhillon[address] [id number] Information: [id number], NURSE DRAW Erythrocyte distribution width Auto Ratio (RBC) 13.5 % Normal 12.3-15.4 [facility] Work Phone: Hematocrit (Bld) [Volume fraction] 45.1 % Normal 37.5-51.0 [facility] Work Phone: Comment on above: PATIENT NOT FASTINGP ERFORMED BY: AUDREY [address] [id number] Information: [id number], NURSE DRAW Hematocrit Auto Volume Fraction (Bld) 45.1 % Normal 37.5-51.0 [facility] Work Phone: Hemoglobin mass conc (Bld) 16.3 g/dL Normal 12.6-17.7 [facility] Work Phone: Comment on above: PATIENT NOT FASTINGP ERFORMED BY: AUDREY Fu6370 [facility] [id number] Information: [id number], NURSE DRAW Immature granulocytes #/vol (Bld) 0.0 {x10E3/uL} Normal 0.0-0.1 [facility] Work Phone: Comment on above: PATIENT NOT FASTINGP ERFORMED BY: [address] [id number] Information: [id number], NURSE DRAW Immature granulocytes (Bld) [#/Vol] 0.0 10*3/uL Normal 0.0-0.1 [facility]; [facility] Work Phone: Comment on above: PATIENT NOT FASTINGP ERFORMED BY: AUDREY Dhillon[address] [id number] Information: [id number], NURSE DRAW Immature granulocytes/100 WBC (Bld) 0 % Normal [facility] Work Phone: Comment on above: PATIENT NOT FASTINGP ERFORMED BY: AUDREY Clemons [address] [id number] Information: [id number], NURSE DRAW Lymphocytes (Bld) [#/Vol] 1.6 {x10E3/uL} Normal 0.7-3.1 [facility] Work Phone: Comment on above: PATIENT NOT FASTINGP ERFORMED BY: [address] [id number] Information: [id number], NURSE DRAW Lymphocytes (Bld) [#/Vol] 1.6 10*3/uL Normal 0.7-3.1 [facility]; [facility] Work Phone: Comment on above: PATIENT NOT FASTINGP ERFORMED BY: AUDREY [address] [id number] Information: [id number], NURSE DRAW Lymphocytes Auto #/vol (Bld) 1.6 {x10E3/uL} Normal 0.7-3.1 [facility] Work Phone: Lymphocytes/100 WBC (Bld) 13 % Normal [facility] Work Phone: Comment on above: PATIENT NOT FASTINGP ERFORMED BY: [address] [id number] Information: [id number], NURSE DRAW Lymphocytes/100 WBC Auto (Bld) 13 % Normal [facility] Work Phone: MCH (RBC) [Entitic mass] 30.5 pg Normal 26.6-33.0 [facility] Work Phone: Comment on above: PATIENT NOT FASTINGP ERFORMED BY: AUDREY [address] [id number] Information: [id number], NURSE DRAW MCH Auto Entitic mass (RBC) 30.5 pg Normal 26.6-33.0 [facility] Work Phone: MCHC (RBC) [Mass/Vol] 36.1 g/dL Abnormal 31.5-35.7 [facility] Work Phone: Comment on above: PATIENT NOT FASTINGP ERFORMED BY: [address] [id number] Information: [id number], NURSE DRAW MCHC Auto mass conc (RBC) 36.1 g/dL Abnormal 31.5-35.7 [facility] Work Phone: MCV (RBC) [Entitic vol] 85 fL Normal 79-97 [facility] Work Phone: Comment on above: PATIENT NOT FASTINGP ERFORMED BY: [address] [id number] Information: [id number], NURSE DRAW MCV Auto Entitic volume (RBC) 85 fL Normal 79-97 [facility] Work Phone: Monocytes (Bld) [#/Vol] 1.1 {x10E3/uL} Abnormal 0.1-0.9 [facility] Work Phone: Comment on above: PATIENT NOT FASTINGP ERFORMED BY: [place] [id number] [facility] [id number] Information: [id number], NURSE DRAW Monocytes (Bld) [#/Vol] 1.1 10*3/uL Abnormal 0.1-0.9 [facility]; [facility] Work Phone: Comment on above: PATIENT NOT FASTINGP ERFORMED BY: [address] [id number] Information: [id number], NURSE DRAW Monocytes Auto #/vol (Bld) 1.1 {x10E3/uL} Abnormal 0.1-0.9 [facility] Work Phone: Monocytes/100 WBC (Bld) 9 % Normal [facility] Work Phone: Comment on above: PATIENT NOT FASTINGP ERFORMED BY: [address] [id number] Information: [id number], NURSE DRAW Monocytes/100 WBC Auto (Bld) 9 % Normal [facility] Work Phone: Neutrophils (Bld) [#/Vol] 8.7 {x10E3/uL} Abnormal 1.4-7.0 [facility] Work Phone: Comment on above: PATIENT NOT FASTINGP ERFORMED BY: [address] [id number] Information: [id number], NURSE DRAW Neutrophils (Bld) [#/Vol] 8.7 10*3/uL Abnormal 1.4-7.0 [facility]; [facility] Work Phone: Comment on above: PATIENT NOT FASTINGP ERFORMED BY: [address] [id number] Information: [id number], NURSE DRAW Neutrophils Auto #/vol (Bld) 8.7 {x10E3/uL} Abnormal 1.4-7.0 [facility] Work Phone: Neutrophils/100 WBC (Bld) 72 % Normal [facility] Work Phone: Comment on above: PATIENT NOT FASTINGP ERFORMED BY: AUDREY Bourne [facility] [id number] Information: [id number], NURSE DRAW Neutrophils/100 WBC Auto (Bld) 72 % Normal [facility] Work Phone: Platelets (Bld) [#/Vol] 408 {x10E3/uL} Abnormal 150-379 [facility] Work Phone: Comment on above: PATIENT NOT FASTINGP ERFORMED BY: [facility] Xcrtph[address] [id number] Information: [id number], NURSE DRAW Platelets (Bld) [#/Vol] 408 10*3/uL Abnormal 150-379 [facility] Internal [facility]; [facility] Work Phone: Comment on above: PATIENT NOT FASTINGP ERFORMED BY: [address] [id number] Information: [id number], NURSE DRAW Platelets Auto #/vol (Bld) 408 {x10E3/uL} Abnormal 150-379 [facility] Work Phone: RBC (Bld) [#/Vol] 5.34 {x10E6/uL} Normal 4.14-5.80 [facility] Internal Medicine Work Phone: Comment on above: PATIENT NOT FASTINGP ERFORMED BY: [place] [id number] [facility] [id number] Information: [id number], NURSE DRAW RBC (Bld) [#/Vol] 5.34 10*6/uL Normal 4.14-5.80 [facility] Internal Medicine; [facility] Internal Medicine Work Phone: Comment on above: PATIENT NOT FASTINGP ERFORMED BY: [address] [id number] Information: [id number], NURSE DRAW RBC Auto #/vol (Bld) 5.34 {x10E6/uL} Normal 4.14-5.80 [facility] Work Phone: WBC (Bld) [#/Vol] 12.1 {x10E3/uL} Abnormal 3.4-10.8 [facility] Internal Medicine Work Phone: Comment on above: PATIENT NOT FASTINGP ERFORMED BY: [facility] Dzybfg2268 [facility] [id number] Information: [id number], NURSE DRAW WBC (Bld) [#/Vol] 12.1 10*3/uL Abnormal 3.4-10.8 [facility]; [facility] Work Phone: Comment on above: PATIENT NOT FASTINGP ERFORMED BY: [facility] HospitalLojqou6859 [facility] [id number] Information: [id number], NURSE DRAW WBC Auto #/vol (Bld) 12.1 {x10E3/uL} Abnormal 3.4-10.8 [facility] Work Phone: Basic Metabolic Profile (BMP )Ordered By: Emt I/99 on 03-08-2015 Basic metabolic 2000 panel 75 mL/min Normal [facility] Work Phone: Comment on above: Non- GFR Calc [facility] [address] [place], [place], [id number] Basic metabolic 2000 panel 5.7 {RATIO} Abnormal 10-20 [facility] Work Phone: Comment on above: [facility] [address] [place], [place], [id number] Basic metabolic 2000 panel 1.06 mg/dL Normal 0.70-1.30 [facility] Work Phone: Comment on above: The validity of the calculated GFR AND GFRAA in patients over70 years has not been determined. Clinical correlation isessential. [facility] [address] [place], [place], [id number] Basic metabolic 2000 panel 91 mL/min Normal [facility] Work Phone: Comment on above: GFR Calc [facility] [address] [place], [place], [address] Basic metabolic 2000 panel 135 mmol/L Abnormal 136-145 [facility] Work Phone: Comment on above: [facility] [address] [place], [place], [address] Basic metabolic 2000 panel 8.7 mg/dL Normal 8.5-10.1 [facility] Work Phone: Comment on above: [facility] [address] [place], [place], [address] Basic metabolic 2000 panel 103 mmol/L Normal 98-107 [facility] Work Phone: Comment on above: [facility] [address] [place], [place], [address] Basic metabolic 2000 panel 3.6 mmol/L Normal 3.5-5.1 [facility] Work Phone: Comment on above: [facility] [address] [place], [place], [address] Basic metabolic 2000 panel 73.65 ml/min Normal [facility] Work Phone: Comment on above: [facility] [address] [place], [address] Basic metabolic 2000 panel 112 mg/dL Abnormal 70-110 [facility] Work Phone: Comment on above: Fasting Glucose resu lt from 110 to <126 mg/dLsuggests IMPAIRED HOMEOSTASIS per A.D.A. criteria. [facility] [address] [place], [place], [id number] Basic metabolic 2000 panel 22.0 mmol/L Normal 21.0-32.0 [facility] Work Phone: Comment on above: [facility] [address] [place], [place], [id number] Basic metabolic 2000 panel 10 1 Normal 5-15 [facility] Work Phone: Comment on above: [facility] [address] [place], [place], [id number] Basic metabolic 2000 panel 6 mg/dL Abnormal 7-18 [facility] Work Phone: Comment on above: [facility] [address] [place], [place], [id number] CBC W/Diff, AutomatedOrdered By: Emt I/99 on 03-08-2015 Absolute Lymph 1.63 {X10_3/ul} Normal 0.83-4.51 Compr ehensive [facility] Medicine Work Phone: Absolute Neut 18.8 {X10_3/uL} Abnormal 2.0-7.7 [facility] Work Phone: Comment on above: [place] [address] [place], [address] Basophils/100 WBC (Bld) 0.1 % Normal 0-1 [facility] Work Phone: Comment on above: [facility] [address] [place], [address] Basophils/100 WBC Auto (Bld) 0.1 % Normal 0-1 [facility] Work Phone: Eosinophils/100 WBC (Bld) 0.3 % Normal 0-5 [facility] Work Phone: Comment on above: [facility] [address] [place], [address] Eosinophils/100 WBC Auto (Bld) 0.3 % Normal 0-5 [facility] Work Phone: Erythrocyte distribution width (RBC) [Ratio] 13.0 % Normal 11.6-14.6 [facility] Work Phone: Comment on above: [facility] [address] [place], [address] Erythrocyte distribution width Auto Ratio (RBC) 13.0 % Normal 11.6-14.6 [facility] Work Phone: Hematocrit (Bld) [Volume fraction] 47.4 % Normal 40-54 [facility] Work Phone: Comment on above: [facility] [address] [place], [address] Hematocrit Auto Volume Fraction (Bld) 47.4 % Normal 40-54 [facility] Work Phone: Hemoglobin mass conc (Bld) 16.9 g/dL Abnormal 13.0-16.5 [facility] Work Phone: Comment on above: [place] [address] [place], [address] IM GRAN % 0.400 % Normal 0.0-0.9 [facility] Work Phone: Comment on above: IG% - Immature Granu locytes (promyelocytes, myelocytes andmetamyelocytes) > 1% indicates that a LEFT SHIFT is Present. [place] [address] [place], [address] Lymphocytes (Bld) [#/Vol] 1.63 {X10_3/ul} Normal 0.83-4.51 [facility] Work Phone: Comment on above: [place] [address] [place], [address] Lymphocytes/100 WBC (Bld) 7.1 % Abnormal 19-41 [facility] Work Phone: Comment on above: [facility] [address] [place], [address] Lymphocytes/100 WBC Auto (Bld) 7.1 % Abnormal 19-41 [facility] Work Phone: MCH (RBC) [Entitic mass] 30.5 pg Normal 27.0-32.0 [facility] Work Phone: Comment on above: [facility] [address] [place], [address] MCH Auto Entitic mass (RBC) 30.5 pg Normal 27.0-32.0 [facility] Work Phone: MCHC (RBC) [Mass/Vol] 35.7 {g/gl} Normal 32-36 [facility] Work Phone: Comment on above: [facility] [address] [place], [address] MCHC Auto mass conc (RBC) 35.7 {g/gl} Normal 32-36 [facility] Work Phone: MCV (RBC) [Entitic vol] 85.6 fL Normal 80-94 [facility] Work Phone: Comment on above: [facility] [address] [place], [address] MCV Auto Entitic volume (RBC) 85.6 fL Normal 80-94 [facility] Work Phone: Monocytes/100 WBC Auto (Bld) 10.2 % Abnormal 0-10 [facility] Work Phone: Comment on above: [facility] [address] [place], [address] Neutrophils/100 WBC (Bld) 81.9 % Abnormal 47-70 [facility] Work Phone: Comment on above: [facility] [address] [place], [address] Neutrophils/100 WBC Auto (Bld) 81.9 % Abnormal 47-70 [facility] Work Phone: PATH REV May foll Normal [facility] Work Phone: Platelet mean volume (Bld) [Entitic vol] 9.1 fL Normal 6.2-12.0 Comprehensiv e Internal Medicine Work Phone: Comment on above: [facility] [address] [place], [place], [id number] Platelet mean volume Auto Entitic volume (Bld) 9.1 fL Normal 6.2-12.0 [facility] Internal Medicine Work Phone: Platelets (Bld) [#/Vol] 277 10*3/uL Normal 150-450 [facility] Internal Medicine Work Phone: Comment on above: [facility] [address] [place], [address] Platelets Auto #/vol (Bld) 277 10*3/uL Normal 150-450 [facility] Internal Medicine Work Phone: RBC (Bld) [#/Vol] 5.54 {M/mm3} Normal 4.6-6.2 [facility] Internal Medicine Work Phone: Comment on above: [place] [address] [place], [address] RBC Auto #/vol (Bld) 5.54 {M/mm3} Normal 4.6-6.2 [facility] Internal Medicine Work Phone: RDW SD 40.8 fL Normal 35.1-43.9 [facility] Internal Medicine Work Phone: Comment on above: [place] [address] [place], [address] SMEAR COMMENT SCANNED Normal Comprehensi Internal Medicine Work Phone: Comment on above: MONOCYTOSIS NOTED WBC (Bld) [#/Vol] 23.0 10*3/uL Abnormal 4.4-11.0 [facility] Internal Medicine Work Phone: Comment on above: [facility] [address] [place], [address] WBC Auto #/vol (Bld) 23.0 10*3/uL Abnormal 4.4-11.0 [facility] Internal Medicine Work Phone: CBC W/Diff, Automated SCANNED Normal [facility] Internal Medicine Work Phone: Comment on above: MONOCYTOSIS NOTED [facility] [address] [place], [place], [address] CBC W/Diff, Automated May foll Normal [facility] Work Phone: Comment on above: [facility] [address] [place], [place], [id number] Basic Metabolic Profile (BMP )Ordered By: Emt I/99 on 03-07-2015 Basic metabolic 2000 panel 9.6 {RATIO} Abnormal 10-20 [facility] Work Phone: Comment on above: [facility] [address] [place], [place], [address] Basic metabolic 2000 panel 9.4 mg/dL Normal 8.5-10.1 [facility] Work Phone: Comment on above: [facility] [address] [place], [place], [id number] Basic metabolic 2000 panel 136 mmol/L Normal 136-145 [facility] Work Phone: Comment on above: [facility] [address] [place], [place], [address] Basic metabolic 2000 panel 4.0 mmol/L Normal 3.5-5.1 [facility] Work Phone: Comment on above: [facility] [address] [place], [place], [address] Basic metabolic 2000 panel 102 mmol/L Normal 98-107 [facility] Work Phone: Comment on above: [facility] [address] [place], [place], [address] Basic metabolic 2000 panel 12 mg/dL Normal 7-18 [facility] Work Phone: Comment on above: [facility] [address] [place], [place], [address] Basic metabolic 2000 panel 119 mg/dL Abnormal 70-110 [facility] Work Phone: Comment on above: Fasting Glucose resu lt from 110 to <126 mg/dLsuggests IMPAIRED HOMEOSTASIS per A.D.A. criteria. [facility] [address] [place], [place], [id number] Basic metabolic 2000 panel 75 mL/min Normal [facility] Work Phone: Comment on above: GFR Calc [facility] [address] [place], [place], [address] Basic metabolic 2000 panel 1.25 mg/dL Normal 0.70-1.30 [facility] Work Phone: Comment on above: The validity of the calculated GFR AND GFRAA in patients over70 years has not been determined. Clinical correlation isessential. [facility] [address] [place], [place], [address] Basic metabolic 2000 panel 62 mL/min Normal [facility] Work Phone: Comment on above: Non- GFR Calc [facility] [address] [place], [place], [address] Basic metabolic 2000 panel 26.0 mmol/L Normal 21.0-32.0 [facility] Work Phone: Comment on above: [facility] [address] [place], [place], [address] Basic metabolic 2000 panel 8 1 Normal 5-15 [facility] Work Phone: Comment on above: [facility] [address] [place], [place], [address] Basic metabolic 2000 panel 62.46 ml/min Normal [facility] Work Phone: Comment on above: [facility] [address] [place], [place], [address] Urinalysis, CompleteOrdered By: Emt I/99 on 03-07-2015 RBC (U) [#/Vol] 0 SEEN Normal 0-5 Comprehen sive Internal Medicine Work Phone: Comment on above: Order Date: 03/07/15 How was Urine Obtained? [facility] [address] [place], [address] RBC Test strip #/vol (U) 0 SEEN Normal 0-5 [facility] Work Phone: Urinalysis complete panel - Urine Negative Normal [facility] Work Phone: Comment on above: Order Date: 03/07/15 How was Urine Obtained? [facility] [address] [place], [address] Urinalysis complete panel - Urine 0 SEEN Normal 0-5 [facility] Work Phone: Comment on above: Order Date: 03/07/15 How was Urine Obtained? [facility] [address] [place], [address] Urinalysis complete panel - Urine 0-5 SEEN Normal 0-5 [facility] Work Phone: Comment on above: Order Date: 03/07/15 How was Urine Obtained? [facility] [address] [place], [address] Urinalysis complete panel - Urine Normal Normal [facility] Work Phone: Comment on above: Order Date: 03/07/15 How was Urine Obtained? [facility] [address] [place], [address] Urinalysis complete panel - Urine Clear Normal [facility] Work Phone: Comment on above: Order Date: 03/07/15 How was Urine Obtained? [facility] [address] [place], [address] Urinalysis complete panel - Urine 6.0 1 Normal 5.0 - 8.0 [facility] Work Phone: Comment on above: Order Date: 03/07/15 How was Urine Obtained? [facility] [address] [place], [address] Urinalysis complete panel - Urine 1.010 1 Normal 1.002-1.03 0 [facility] Work Phone: Comment on above: Order Date: 03/07/15 How was Urine Obtained? CLEAN [facility] [address] [place], [address] Urinalysis complete panel - Urine Yellow Normal [facility] Work Phone: Comment on above: Order Date: 03/07/15 How was Urine Obtained? [facility] [address] [place], [address] MISCELLANEOUS SPECIMENOrdere d By: Emt I/99 on 01-26-2015 MISCELLANEOUS SPECIMEN See Note Normal [facility] Work Phone: Comment on above: Patient: THA MENG : 1950 (64/M) Acct Num: [id number] Phys: Kelly Laguerre DO Unit Num: [id number] [place] [facility] [place] [id number] Received: 01/27/15809 [place] [facility] [place] TISSUES: GROSS DESCRIPTION Received is one container labeled with the patient name and designated "nail andcyst left middle finger ". The specimen consists of a wesley-white nail measuring 2 x 1 x 0.1 cm. Also present in the container is a detached piece of soft tissue measuring 0.5 x 0.5 x 0.1 cm. The entire specimen is submitted in two cassettes as follows: 1 - smaller piece of tissue, 2 - nail. 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 MICROSCOPIC DIAGNOSIS Nail and cyst left middle finger, excision: A piece of skin, suggestive of benign cyst. Nail - no pathologic diagnosis. Special stain for fungi is negative for organisms; matched control is appropriate. TANA:brandon 01/28/15 Signed Omar Pierre 01/31/15 [facility] [address] [place], [address] CBC, Platelets & Auto Diff ( [id number])Ordered By: Emt I/99 on 11-15-2014 Basophils (Bld) [#/Vol] 0.0 {x10E3/uL} Normal 0.0-0.2 [facility] Work Phone: Comment on above: PATIENT NOT FASTINGP ERFORMED BY: [facility]Y [facility] Lakido0559 [facility] [id number] Information: [id number] Basophils (Bld) [#/Vol] 0.0 10*3/uL Normal 0.0-0.2 [facility]; [facility] Work Phone: Comment on above: PATIENT NOT FASTINGP ERFORMED BY: [facility] Ihcsbb3854 [facility] [id number] Information: [id number] Basophils Auto #/vol (Bld) 0.0 {x10E3/uL} Normal 0.0-0.2 [facility] Work Phone: Basophils/100 WBC (Bld) 0 % Normal [facility] Work Phone: Comment on above: PATIENT NOT FASTINGP ERFORMED BY: [place] 3453470 [facility] [id number] Information: [id number] Basophils/100 WBC Auto (Bld) 0 % Normal [facility] Work Phone: Eosinophils (Bld) [#/Vol] 0.1 {x10E3/uL} Normal 0.0-0.4 [facility] Work Phone: Comment on above: PATIENT NOT FASTINGP ERFORMED BY: [place] 3453470 [facility] [id number] Information: [id number] Eosinophils (Bld) [#/Vol] 0.1 10*3/uL Normal 0.0-0.4 [facility]; [facility] Work Phone: Comment on above: PATIENT NOT FASTINGP ERFORMED BY: [place] 3453470 [facility] [id number] Information: [id number] Eosinophils Auto #/vol (Bld) 0.1 {x10E3/uL} Normal 0.0-0.4 [facility] Work Phone: Eosinophils/100 WBC (Bld) 1 % Normal [facility] Work Phone: Comment on above: PATIENT NOT FASTINGP ERFORMED BY: [place] 3453470 [facility] [id number] Information: [id number] Eosinophils/100 WBC Auto (Bld) 1 % Normal [facility] Work Phone: Erythrocyte distribution width (RBC) [Ratio] 13.3 % Normal 12.3-15.4 [facility] Work Phone: Comment on above: PATIENT NOT FASTINGP ERFORMED BY: [address] [id number] Information: [id number] Erythrocyte distribution width Auto Ratio (RBC) 13.3 % Normal 12.3-15.4 [facility] Work Phone: Hematocrit (Bld) [Volume fraction] 46.5 % Normal 37.5-51.0 [facility] Work Phone: Comment on above: PATIENT NOT FASTINGP ERFORMED BY: [address] [id number] Information: [id number] Hematocrit Auto Volume Fraction (Bld) 46.5 % Normal 37.5-51.0 [facility] Work Phone: Hemoglobin mass conc (Bld) 16.2 g/dL Normal 12.6-17.7 [facility] Work Phone: Comment on above: PATIENT NOT FASTINGP ERFORMED BY: AUDREY Clemons Ocwzpf1501 [facility] [id number] Information: [id number] Immature granulocytes #/vol (Bld) 0.0 {x10E3/uL} Normal 0.0-0.1 [facility] Work Phone: Comment on above: PATIENT NOT FASTINGP ERFORMED BY: Nona Aolaip[address] [id number] Information: [id number] Immature granulocytes (Bld) [#/Vol] 0.0 10*3/uL Normal 0.0-0.1 [facility]; [facility] Work Phone: Comment on above: PATIENT NOT FASTINGP ERFORMED BY: [facility] Adpbty[address] [id number] Information: [id number] Immature granulocytes/100 WBC (Bld) 0 % Normal [facility] Work Phone: Comment on above: PATIENT NOT FASTINGP ERFORMED BY: [facility] Eygjqm[address] [id number] Information: [id number] Lymphocytes (Bld) [#/Vol] 2.0 {x10E3/uL} Normal 0.7-3.1 [facility] Work Phone: Comment on above: PATIENT NOT FASTINGP ERFORMED BY: [address] [id number] Information: [id number] Lymphocytes (Bld) [#/Vol] 2.0 10*3/uL Normal 0.7-3.1 [facility]; [facility] Work Phone: Comment on above: PATIENT NOT FASTINGP ERFORMED BY: AUDREY [place]hillonDanielle [place] 5461570 [facility] [id number] Information: [id number] Lymphocytes Auto #/vol (Bld) 2.0 {x10E3/uL} Normal 0.7-3.1 [facility] Work Phone: Lymphocytes/100 WBC (Bld) 29 % Normal [facility] Work Phone: Comment on above: PATIENT NOT FASTINGP ERFORMED BY: AUDREY [place] 6453870 [facility] [id number] Information: [id number] Lymphocytes/100 WBC Auto (Bld) 29 % Normal [facility] Work Phone: MCH (RBC) [Entitic mass] 30.4 pg Normal 26.6-33.0 [facility] Work Phone: Comment on above: PATIENT NOT FASTINGP ERFORMED BY: AUDREY [facility] Tnoonx[address] [id number] Information: [id number] MCH Auto Entitic mass (RBC) 30.4 pg Normal 26.6-33.0 [facility] Work Phone: MCHC (RBC) [Mass/Vol] 34.8 g/dL Normal 31.5-35.7 [facility] Work Phone: Comment on above: PATIENT NOT FASTINGP ERFORMED BY: AUDREY [address] [id number] Information: [id number] MCHC Auto mass conc (RBC) 34.8 g/dL Normal 31.5-35.7 [facility] Work Phone: MCV (RBC) [Entitic vol] 87 fL Normal 79-97 [facility] Work Phone: Comment on above: PATIENT NOT FASTINGP ERFORMED BY: [place] 3453470 [facility] [id number] Information: [id number] MCV Auto Entitic volume (RBC) 87 fL Normal 79-97 [facility] Work Phone: Monocytes (Bld) [#/Vol] 0.5 {x10E3/uL} Normal 0.1-0.9 [facility] Work Phone: Comment on above: PATIENT NOT FASTINGP ERFORMED BY: AUDREY Razalin6370 [facility] [id number] Information: [id number] Monocytes (Bld) [#/Vol] 0.5 10*3/uL Normal 0.1-0.9 [facility]; [facility] Work Phone: Comment on above: PATIENT NOT FASTINGP ERFORMED BY: AUDREY Razalin6370 [facility] [id number] Information: [id number] Monocytes Auto #/vol (Bld) 0.5 {x10E3/uL} Normal 0.1-0.9 [facility] Work Phone: Monocytes/100 WBC (Bld) 8 % Normal [facility] Work Phone: Comment on above: PATIENT NOT FASTINGP ERFORMED BY: AUDREY Clemons [address] [id number] Information: [id number] Monocytes/100 WBC Auto (Bld) 8 % Normal [facility] Work Phone: Neutrophils (Bld) [#/Vol] 4.1 {x10E3/uL} Normal 1.4-7.0 [facility] Work Phone: Comment on above: PATIENT NOT FASTINGP ERFORMED BY: AUDREY ClemonsSh[place] 8230070 [facility] [id number] Information: [id number] Neutrophils (Bld) [#/Vol] 4.1 10*3/uL Normal 1.4-7.0 [facility]; [facility] Work Phone: Comment on above: PATIENT NOT FASTINGP ERFORMED BY: AUDREY Clemons Lhfohi5922 [facility] [id number] Information: [id number] Neutrophils Auto #/vol (Bld) 4.1 {x10E3/uL} Normal 1.4-7.0 [facility] Work Phone: Neutrophils/100 WBC (Bld) 62 % Normal [facility] Work Phone: Comment on above: PATIENT NOT FASTINGP ERFORMED BY: AUDREY [place] [facility] [id number] Information: [id number] Neutrophils/100 WBC Auto (Bld) 62 % Normal [facility] Work Phone: Platelets (Bld) [#/Vol] 263 {x10E3/uL} Normal 150-379 [facility] Work Phone: Comment on above: PATIENT NOT FASTINGP ERFORMED BY: AUDREY Fu6370 [facility] [id number] Information: [id number] Platelets (Bld) [#/Vol] 263 10*3/uL Normal 150-379 [facility] Internal Medicine; [facility] Work Phone: Comment on above: PATIENT NOT FASTINGP ERFORMED BY: AUDREY Razalin6370 [facility] [id number] Information: [id number] Platelets Auto #/vol (Bld) 263 {x10E3/uL} Normal 150-379 [facility] Work Phone: RBC (Bld) [#/Vol] 5.33 {x10E6/uL} Normal 4.14-5.80 [facility] Internal Medicine Work Phone: Comment on above: PATIENT NOT FASTINGP ERFORMED BY: AUDREY Clemons Vvfumx2469 [facility] [id number] Information: [id number] RBC (Bld) [#/Vol] 5.33 10*6/uL Normal 4.14-5.80 [facility] Internal Medicine; [facility] Work Phone: Comment on above: PATIENT NOT FASTINGP ERFORMED BY: AUDREY [facility] Jjrchg2023 [facility] [id number] Information: [id number] RBC Auto #/vol (Bld) 5.33 {x10E6/uL} Normal 4.14-5.80 [facility] Work Phone: WBC (Bld) [#/Vol] 6.7 {x10E3/uL} Normal 3.4-10.8 Com prehensive [facility] Medicine Work Phone: Comment on above: PATIENT NOT FASTINGP ERFORMED BY: AUDREY [facility] Exbdmr9118 [facility] [place] [id number] Information: [id number] WBC (Bld) [#/Vol] 6.7 10*3/uL Normal 3.4-10.8 Compre hensive Internal Medicine; [facility] Work Phone: Comment on above: PATIENT NOT FASTINGP ERFORMED BY: AUDREY [facility] Rteygv2397 [facility] [id number] Information: [id number] WBC Auto #/vol (Bld) 6.7 {x10E3/uL} Normal 3.4-10.8 [facility] Work Phone: Renal function Panel ([id number]) Ordered By: Emt I/99 on 11-15-2014 Albumin mass conc 4.5 g/dL Normal 3.6-4.8 Compreh ensive Internal Medicine Work Phone: Comment on above: PATIENT NOT FASTINGP ERFORMED BY: AUDREY [facility] Zxytcy6536 [facility] [id number] Calcium mass conc 10.0 mg/dL Normal 8.6-10.2 Compreh ensive [facility] Medicine Work Phone: Comment on above: PATIENT NOT FASTINGP ERFORMED BY: CB [facility] Qxiwgl8700 [facility] [id number] Chloride molar conc 99 mmol/L Normal 97-108 Compr ehensive Internal Medicine Work Phone: Comment on above: PATIENT NOT FASTINGP ERFORMED BY: AUDREY [facility] Hjdcmt6653 [facility] [place] [id number] CO2 molar conc 25 mmol/L Normal 18-29 Comprehens champ [facility] Medicine Work Phone: Comment on above: PATIENT NOT FASTINGP ERFORMED BY: AUDREY Fu6370 [facility] [place] [id number] Creatinine mass conc 0.98 mg/dL Normal 0.76-1.27 Comp rehensive Internal Medicine Work Phone: Comment on above: PATIENT NOT FASTINGP ERFORMED BY: AUDREY [facility] Xfxnzs1687 [facility] [place] [id number] GFR/1.73 sq M predicted among blacks CKD-EPI vol rate/area (S/P/Bld) 94 mL/min/1.73 Normal Comprehensiv e [facility] Work Phone: Comment on above: PATIENT NOT FASTINGP ERFORMED BY: AUDREY Fu6370 [facility] [id number] GFR/1.73 sq M predicted among non-blacks CKD-EPI vol rate/area (S/P/Bld) 82 mL/min/1.73 Normal [facility] Work Phone: Comment on above: PATIENT NOT FASTINGP ERFORMED BY: AUDREY DhillonCo Qyobsq7946 [facility] [id number] Glucose mass conc 63 mg/dL Abnormal 65-99 [facility]pre[facility] Work Phone: Comment on above: This serum sample wa s in contactwith the red cells when received.This may adversely affect serumChemistries. PATIENT NOT FASTINGP ERFORMED BY: AUDREY [facility] Dpogde8224 [facility] [id number] Phosphate mass conc 4.1 mg/dL Normal 2.5-4.5 Compr ensive [facility] Medicine Work Phone: Comment on above: PATIENT NOT FASTINGP ERFORMED BY: AUDREY [facility] Jpmgjo3895 [facility] [id number] Potassium molar conc 5.1 mmol/L Normal 3.5-5.2 Comp [facility] Work Phone: Comment on above: PATIENT NOT FASTINGP ERFORMED BY: AUDREY [facility] Bekysv6809 [facility] [id number] Sodium molar conc 141 mmol/L Normal 134-144 Compreh ensive Internal Medicine Work Phone: Comment on above: PATIENT NOT FASTINGP ERFORMED BY: [facility] Atbyzg4538 [facility] [id number] Urea nitrogen mass conc 15 mg/dL Normal 8-27 [facility] Work Phone: Comment on above: PATIENT NOT FASTINGP ERFORMED BY: [facility] Zxewrt4772 [facility] [id number] Urea nitrogen/Creatinine mass ratio 15 mg/mg Normal 10-22 [facility] Work Phone: Comment on above: PATIENT NOT FASTINGP ERFORMED BY: [facility] Twpaac6645 [facility] [id number] Basic Metabolic Profile (BMP )Ordered By: Emt I/99 on 11-12-2014 Basic metabolic 2000 panel 42 mL/min Abnormal [facility] Work Phone: Comment on above: Serial Specimen #1, #2 or #3? 1'TROP' Serial specimen #1, #2, #3, or #4: 1Test performed at:[facility] [address] [place] [address] Basic metabolic 2000 panel 9 1 Normal 5-15 [facility] Work Phone: Comment on above: Serial Specimen #1, #2 or #3? 1'TROP' Serial specimen #1, #2, #3, or #4: 1Test performed at:[facility] [address] [facility] [place] [address] Basic metabolic 2000 panel 24.0 mmol/L Normal 21.0-32.0 [facility] Work Phone: Comment on above: Serial Specimen #1, #2 or #3? 1'TROP' Serial specimen #1, #2, #3, or #4: 1Test performed at:[facility] [address] [place] [address] Basic metabolic 2000 panel 106 mmol/L Normal 98-107 [facility] Work Phone: Comment on above: Serial Specimen #1, #2 or #3? 1'TROP' Serial specimen #1, #2, #3, or #4: 1Test performed at:[facility] [address] [place] [address] Basic metabolic 2000 panel 3.9 mmol/L Normal 3.5-5.1 [facility] Work Phone: Comment on above: Serial Specimen #1, #2 or #3? 1'TROP' Serial specimen #1, #2, #3, or #4: 1Test performed at:[facility] [address] [place] [address] Basic metabolic 2000 panel 139 mmol/L Normal 136-145 [facility] Work Phone: Comment on above: Serial Specimen #1, #2 or #3? 1'TROP' Serial specimen #1, #2, #3, or #4: 1Test performed at:[facility] [address] [place] [address] Basic metabolic 2000 panel 106 mg/dL Normal 70-110 [facility] Work Phone: Comment on above: Serial Specimen #1, #2 or #3? 1'TROP' Serial specimen #1, #2, #3, or #4: 1Test performed at:[facility] [address] [place] [address] Basic metabolic 2000 panel 29 mg/dL Abnormal 7-18 [facility] Work Phone: Comment on above: Serial Specimen #1, #2 or #3? 1'TROP' Serial specimen #1, #2, #3, or #4: 1Test performed at:[facility] [address] [place] [address] Basic metabolic 2000 panel 2.03 mg/dL Abnormal 0.70-1.30 [facility] Work Phone: Comment on above: Please note revised CREATININE reference range faozdqtfs18/22/2015. Serial Specimen #1, #2 or #3? 1'TROP' Serial specimen #1, #2, #3, or #4: 1Test performed at:[facility] [address] [place] [address] Basic metabolic 2000 panel 35 mL/min Abnormal [facility] Work Phone: Comment on above: Serial Specimen #1, #2 or #3? 1'TROP' Serial specimen #1, #2, #3, or #4: 1Test performed at:[facility] [address] [place] [address] Basic metabolic 2000 panel 9.6 mg/dL Normal 8.5-10.1 [facility] Work Phone: Comment on above: Serial Specimen #1, #2 or #3? 1'TROP' Serial specimen #1, #2, #3, or #4: 1Test performed at:[facility] [address] [place] [address] Basic metabolic 2000 panel 14.3 {RATIO} Normal 10-20 [facility] Work Phone: Comment on above: Serial Specimen #1, #2 or #3? 1'TROP' Serial specimen #1, #2, #3, or #4: 1Test performed at:[facility] [address] [place] [address] Basic metabolic 2000 panel 38.46 ml/min Normal [facility] Work Phone: Comment on above: Serial Specimen #1, #2 or #3? 1'TROP' Serial specimen #1, #2, #3, or #4: 1Test performed at:[facility] [address] [place] [address] CBC W/Diff, AutomatedOrdered By: Emt I/99 on 11-12-2014 Absolute Lymph 2.07 {X10_3/ul} Normal 0.83-4.51 Compr ehensive Internal Medicine Work Phone: Absolute Neut 9.5 {X10_3/uL} Abnormal 2.0-7.7 Compreh ensive Internal Medicine Work Phone: Comment on above: Test performed at:[facility] [address] [place] [address] Basophils/100 WBC (Bld) 0.2 % Normal 0-1 [facility] Work Phone: Comment on above: Test performed at:[facility] [address] [place] [address] Basophils/100 WBC Auto (Bld) 0.2 % Normal 0-1 [facility] Work Phone: Eosinophils/100 WBC (Bld) 0.5 % Normal 0-5 [facility] Work Phone: Comment on above: Test performed at:[facility] [address] [place] [address] Eosinophils/100 WBC Auto (Bld) 0.5 % Normal 0-5 [facility] Work Phone: Erythrocyte distribution width (RBC) [Ratio] 12.6 % Normal 11.6-14.6 [facility] Work Phone: Comment on above: Test performed at:[facility] [address] [place] [address] Erythrocyte distribution width Auto Ratio (RBC) 12.6 % Normal 11.6-14.6 [facility] Work Phone: Hematocrit (Bld) [Volume fraction] 48.5 % Normal 40-54 [facility] Work Phone: Comment on above: Test performed at:[facility] [address] [place] [address] Hematocrit Auto Volume Fraction (Bld) 48.5 % Normal 40-54 [facility] Work Phone: Hemoglobin mass conc (Bld) 16.9 g/dL Abnormal 13.0-16.5 [facility] Work Phone: Comment on above: Test performed at:[facility] [address] [place] [address] IM GRAN % 0.300 % Normal 0.0-0.9 [facility] Work Phone: Comment on above: IG% - Immature Granu locytes (promyelocytes, myelocytes andmetamyelocytes) > 1% indicates that a LEFT SHIFT is Present. Test performed at:[facility] [address] [place] [address] Lymphocytes (Bld) [#/Vol] 2.07 {X10_3/ul} Normal 0.83-4.51 [facility] Work Phone: Comment on above: Test performed at:[facility] [address] [place] [address] Lymphocytes/100 WBC (Bld) 15.8 % Abnormal 19-41 [facility] Work Phone: Comment on above: Test performed at:[facility] [address] [place] [address] Lymphocytes/100 WBC Auto (Bld) 15.8 % Abnormal 19-41 [facility] Work Phone: MCH (RBC) [Entitic mass] 30.5 pg Normal 27.0-32.0 [facility] Work Phone: Comment on above: Test performed at:[facility] [address] [place] [address] MCH Auto Entitic mass (RBC) 30.5 pg Normal 27.0-32.0 [facility] Work Phone: MCHC (RBC) [Mass/Vol] 34.8 {g/gl} Normal 32-36 [facility] Work Phone: Comment on above: Test performed at:[facility] [address] [place] [address] MCHC Auto mass conc (RBC) 34.8 {g/gl} Normal 32-36 [facility] Work Phone: MCV (RBC) [Entitic vol] 87.4 fL Normal 80-94 [facility] Work Phone: Comment on above: Test performed at:[facility] [address] [place] [address] MCV Auto Entitic volume (RBC) 87.4 fL Normal 80-94 [facility] Work Phone: Monocytes/100 WBC Auto (Bld) 10.2 % Abnormal 0-10 [facility] Work Phone: Comment on above: Test performed at:[facility] [address]af[address] [place] [address] Neutrophils/100 WBC (Bld) 73.0 % Abnormal 47-70 [facility] Work Phone: Comment on above: Test performed at:[facility] [address] [place] [address] Neutrophils/100 WBC Auto (Bld) 73.0 % Abnormal 47-70 [facility] Work Phone: Platelet mean volume (Bld) [Entitic vol] 9.3 fL Normal 6.2-12.0 Comprehensiv e Internal Medicine Work Phone: Comment on above: Test performed at:[facility] [address] [place] [address] Platelet mean volume Auto Entitic volume (Bld) 9.3 fL Normal 6.2-12.0 [facility] Work Phone: Platelets (Bld) [#/Vol] 243 10*3/uL Normal 150-450 [facility] Work Phone: Comment on above: Test performed at:[facility] [address] [place] [address] Platelets Auto #/vol (Bld) 243 10*3/uL Normal 150-450 [facility] Work Phone: RBC (Bld) [#/Vol] 5.55 {M/mm3} Normal 4.6-6.2 Compr [facility] Internal Medicine Work Phone: Comment on above: Test performed at:[facility] [address] [place] [address] RBC Auto #/vol (Bld) 5.55 {M/mm3} Normal 4.6-6.2 [facility] Internal Medicine Work Phone: RDW SD 40.7 fL Normal 35.1-43.9 [facility] Work Phone: Comment on above: Test performed at:[facility] [address] [place] [address] WBC (Bld) [#/Vol] 13.1 10*3/uL Abnormal 4.4-11.0 [facility] Internal Medicine Work Phone: Comment on above: Test performed at:[facility] [address] [place] [address] WBC Auto #/vol (Bld) 13.1 10*3/uL Abnormal 4.4-11.0 [facility] Internal Medicine Work Phone: CK-MB Quantitative and Index Ordered By: Emt I/99 on 11-12-2014 CK.MB [Mass/Vol] 2.0 ng/mL Normal 0.0-5.0 [facility] Internal Medicine Work Phone: Comment on above: CK-MB and RI Interpr etation MB Relative Index Non-AMI 5 5 > 4 Serial Specimen #1, #2 or #3? 1'TROP' Serial specimen #1, #2, #3, or #4: 1Test performed at:[facility] [address] [place] [address] CPK TOTAL 162 U/L Normal 39-308 [facility] Work Phone: CPKMB 2.0 ng/mL Normal 0.0-5.0 [facility] Work Phone: Comment on above: CK-MB and RI Interpr etation MB Relative Index Non-AMI 5 5 > 4 CK-MB Quantitative and Index 162 U/L Normal 39-308 [facility] Work Phone: Comment on above: Serial Specimen #1, #2 or #3? 1'TROP' Serial specimen #1, #2, #3, or #4: 1Test performed at:[facility] [address] [facility] [place] [address] Troponin-IOrdered By: Emt I/99 on 11-12-2014 Troponin I.cardiac mass conc ng/mL Normal [facility] Work Phone: Comment on above: TROPONIN-I EXPECTED VALUES <0.05 NEGATIVE 0.06 - 0.59 AT RISK OF [place] > OR = 0.60 SUGGEST [place] Serial Specimen #1, #2 or #3? 1'TROP' Serial specimen #1, #2, #3, or #4: 1Test performed at:[facility] [address] [place], [place] [id number] LIPID PANEL ([id number])Ordered B y: Emt I/99 on 03-01-2014 Cholesterol in HDL mass conc 48 mg/dL Normal [facility] Work Phone: Comment on above: According to ATP-III Guidelines, HDL-C >59 mg/dL is considered anegative risk factor for CHD. PATIENT WAS FASTINGP ERFORMED BY: AUDREY [employer] [facility] [id number] Information: [id number] Cholesterol in LDL mass conc 134 mg/dL Abnormal 0-99 [facility] Work Phone: Comment on above: PATIENT WAS FASTINGP ERFORMED BY: [employer]70 [facility] [id number] Information: [id number] Cholesterol in LDL/Cholesterol in HDL mass ratio 2.8 {ratio_units} Normal 0.0-3.6 [facility] Work Phone: Comment on above: LDL/HDL Ratio Men Wo men 1/2 Avg.Risk 1.0 1.5 Avg.Risk 3.6 3.2 2X Avg.Risk 6.2 5.0 3X Avg.Risk 8.0 6.1 PATIENT WAS FASTINGP ERFORMED BY: [employer]70 [facility] [id number] Information: [id number] Cholesterol in VLDL mass conc 14 mg/dL Normal 5-40 [facility] Work Phone: Comment on above: PATIENT WAS FASTINGP ERFORMED BY: [facility] Kcwdei2842 [facility] [id number] Information: [id number] Cholesterol mass conc 196 mg/dL Normal 100-199 [facility] Work Phone: Comment on above: PATIENT WAS FASTINGP ERFORMED BY: [facility]6370 [facility] [id number] Information: [id number] Triglyceride mass conc 69 mg/dL Normal 0-149 [facility] Work Phone: Comment on above: PATIENT WAS FASTINGP ERFORMED BY: [facility] Wpfvek4534 [facility] [id number] Information: [id number] PSA (PROSTATE SPECIFIC ANTIG EN) (V76.44)Ordered By: Emt I/99 on 03-01-2014 Prostate specific Ag mass conc 3.3 ng/mL Normal 0.0-4.0 [facility] Work Phone: Comment on above: [employer] ECLIA methodol ogy. .According to the [place] [employer], Serum PSA shoulddecrease and remain at undetectable levels after radicalprostatectomy. The AUA defines biochemical recurrence as an initialPSA value 0.2 ng/mL or greater followed by a subsequent confirmatoryPSA value 0.2 ng/mL or greater.Values obtained with different assay methods or kits cannot be usedinterchangeably. Results cannot be interpreted as absolute evidenceof the presence or absence of malignant disease. PATIENT WAS FASTINGP ERFORMED BY: [facility]6370 [facility] [id number] LIPID PANEL ([id number])Ordered B y: Emt I/99 on 04-12-2010 Cholesterol in HDL mass conc 46 mg/dL Normal [facility] Work Phone: Comment on above: According to ATP-III Guidelines, HDL-C >59 mg/dL is considered anegative risk factor for CHD. PATIENT WAS FASTINGP ERFORMED BY: [employer] Rnsnru5455 [facility] [id number] Information: [id number] Cholesterol in LDL mass conc 128 mg/dL Abnormal 0-99 [facility] Work Phone: Comment on above: PATIENT WAS FASTINGP ERFORMED BY: [employer] Jrfwki5442 [facility] [id number] Information: [id number] Cholesterol in LDL/Cholesterol in HDL mass ratio 2.8 {ratio_units} Normal 0.0-3.6 [facility] Work Phone: Comment on above: PATIENT WAS FASTINGP ERFORMED BY: LabCoShore Memorial HospitalYjqsvi2097 [facility] [id number] Information: [id number] Cholesterol in VLDL mass conc 11 mg/dL Normal 5-40 [facility] Work Phone: Comment on above: PATIENT WAS FASTINGP ERFORMED BY: [facility] Yrkprs7824 [facility] [id number] Information: [id number] Cholesterol mass conc 185 mg/dL Normal 100-199 [facility] Work Phone: Comment on above: PATIENT WAS FASTINGP ERFORMED BY: [facility] Gqvyno4658 [facility] [id number] Information: [id number] Triglyceride mass conc 54 mg/dL Normal 0-149 [facility] Work Phone: Comment on above: PATIENT WAS FASTINGP ERFORMED BY: [facility] Cmfbih4380 [facility] [id number] Information: [id number] PSA (PROSTATE SPECIFIC ANTIG EN) (V76.44)Ordered By: Emt I/99 on 04-12-2010 Prostate specific Ag mass conc 2.5 ng/mL Normal 0.0-4.0 [facility] Work Phone: Comment on above: Mike ECLIA methodol ogy. .According to the [place] [employer], Serum PSA shoulddecrease and remain at undetectable levels after radicalprostatectomy. The AUA defines biochemical recurrence as an initialPSA value 0.2 ng/mL or greater followed by a subsequent confirmatoryPSA value 0.2 ng/mL or greater.Values obtained with different assay methods or kits cannot be usedinterchangeably. Results cannot be interpreted as absolute evidenceof the presence or absence of malignant disease. PATIENT WAS FASTINGP ERFORMED BY: [employer] Yedkdy[address] [place] [id number] Calcium, SerumOrdered By: [employer] stem Statistical Methods Professor on 05-06-2009 Calcium mass conc 10.0 mg/dL Normal 8.7-10.2 Compreh ensive Internal Medicine Work Phone: Comment on above: PERFORMED BY: [employer] [id number] Lipid Panel With LDL/HDL Rat ioOrdered By: Emt I/99 on 05-06-2009 Cholesterol in HDL mass conc 49 mg/dL Normal [facility] Work Phone: Comment on above: According to ATP-III Guidelines, HDL-C >59 mg/dL is considered anegative risk factor for CHD. PERFORMED BY: [employer] [place] [id number] Cholesterol in LDL mass conc 118 mg/dL Abnormal 0-99 [facility] Work Phone: Comment on above: PERFORMED BY: [employer] [place] [id number] Cholesterol in LDL/Cholesterol in HDL mass ratio 2.4 {ratio_units} Normal 0.0-3.6 [facility] Work Phone: Comment on above: PERFORMED BY: [employer] [place] [id number] Cholesterol in VLDL mass conc 14 mg/dL Normal 5-40 [facility] Work Phone: Comment on above: PERFORMED BY: [employer] [place] [id number] Cholesterol mass conc 181 mg/dL Normal 100-199 [facility] Work Phone: Comment on above: PERFORMED BY: [employer] Zacarias Mzjjgu0574 [facility] [id number] Triglyceride mass conc 70 mg/dL Normal 0-149 [facility] Work Phone: Comment on above: PERFORMED BY: [employer] Zacarias Ketzop9239 [facility] [id number] CBC WITH MANUAL DIFF ([id number]) Ordered By: Emt I/99 on 04-04-2009 Basophils (Bld) [#/Vol] 0.0 {x10E3/uL} Normal 0.0-0.2 [facility] Work Phone: Comment on above: PATIENT WAS FASTINGP ERFORMED BY: [employer]6370 [facility] [id number] Information: [id number] Basophils (Bld) [#/Vol] 0.0 10*3/uL Normal 0.0-0.2 [facility]; [facility] Work Phone: Comment on above: PATIENT WAS FASTINGP ERFORMED BY: [employer] Nvsefi2403 [facility] [id number] Information: [id number] Basophils Auto #/vol (Bld) 0.0 {x10E3/uL} Normal 0.0-0.2 [facility] Work Phone: Basophils/100 WBC (Bld) 0 % Normal 0-3 [facility] Work Phone: Comment on above: PATIENT WAS FASTINGP ERFORMED BY: [employer] Ulohon4541 [facility] [id number] Information: [id number] Basophils/100 WBC Auto (Bld) 0 % Normal 0-3 [facility] Work Phone: Eosinophils (Bld) [#/Vol] 0.1 {x10E3/uL} Normal 0.0-0.4 [facility] Work Phone: Comment on above: PATIENT WAS FASTINGP ERFORMED BY: CB [facility]6370 [facility] [id number] Information: [id number] Eosinophils (Bld) [#/Vol] 0.1 10*3/uL Normal 0.0-0.4 [facility]; [facility] Work Phone: Comment on above: PATIENT WAS FASTINGP ERFORMED BY: [place] 3453470 [facility] [id number] Information: [id number] Eosinophils Auto #/vol (Bld) 0.1 {x10E3/uL} Normal 0.0-0.4 [facility] Work Phone: Eosinophils/100 WBC (Bld) 1 % Normal 0-7 [facility] Work Phone: Comment on above: PATIENT WAS FASTINGP ERFORMED BY: [place] 3453470 [facility] [id number] Information: [id number] Eosinophils/100 WBC Auto (Bld) 1 % Normal 0-7 [facility] Work Phone: Erythrocyte distribution width (RBC) [Ratio] 13.9 % Normal 11.7-15.0 [facility] Work Phone: Comment on above: PATIENT WAS FASTINGP ERFORMED BY: [place] 3453470 [facility] [id number] Information: [id number] Erythrocyte distribution width Auto Ratio (RBC) 13.9 % Normal 11.7-15.0 [facility] Work Phone: Hematocrit (Bld) [Volume fraction] 47.5 % Normal 36.0-50.0 [facility] Work Phone: Comment on above: PATIENT WAS FASTINGP ERFORMED BY: [place] 3453470 [facility] [id number] Information: [id number] Hematocrit Auto Volume Fraction (Bld) 47.5 % Normal 36.0-50.0 [facility] Work Phone: Hemoglobin mass conc (Bld) 16.2 g/dL Normal 12.5-17.0 [facility] Work Phone: Comment on above: PATIENT WAS FASTINGP ERFORMED BY: AUDREY [place] 6453870 [facility] [id number] Information: [id number] Lymphocytes (Bld) [#/Vol] 1.4 {x10E3/uL} Normal 0.7-4.5 [facility] Work Phone: Comment on above: PATIENT WAS FASTINGP ERFORMED BY: [place] 3453470 [facility] [id number] Information: [id number] Lymphocytes (Bld) [#/Vol] 1.4 10*3/uL Normal 0.7-4.5 [facility]; [facility] Work Phone: Comment on above: PATIENT WAS FASTINGP ERFORMED BY: [address] [id number] Information: [id number] Lymphocytes Auto #/vol (Bld) 1.4 {x10E3/uL} Normal 0.7-4.5 [facility] Work Phone: Lymphocytes/100 WBC (Bld) 22 % Normal 14-46 [facility] Work Phone: Comment on above: PATIENT WAS FASTINGP ERFORMED BY: [place] 3453470 [facility] [id number] Information: [id number] Lymphocytes/100 WBC Auto (Bld) 22 % Normal 14-46 [facility] Work Phone: MCH (RBC) [Entitic mass] 30.8 pg Normal 27.0-34.0 [facility] Work Phone: Comment on above: PATIENT WAS FASTINGP ERFORMED BY: [facility]6370 [facility] [id number] Information: [id number] MCH Auto Entitic mass (RBC) 30.8 pg Normal 27.0-34.0 [facility] Work Phone: MCHC (RBC) [Mass/Vol] 34.2 g/dL Normal 32.0-36.0 [facility] Work Phone: Comment on above: PATIENT WAS FASTINGP ERFORMED BY: [address] [id number] Information: [id number] MCHC Auto mass conc (RBC) 34.2 g/dL Normal 32.0-36.0 [facility] Work Phone: MCV (RBC) [Entitic vol] 90 fL Normal 80-98 [facility] Work Phone: Comment on above: PATIENT WAS FASTINGP ERFORMED BY: [place] 3453470 [facility] [id number] Information: [id number] MCV Auto Entitic volume (RBC) 90 fL Normal 80-98 [facility] Work Phone: Monocytes (Bld) [#/Vol] 0.6 {x10E3/uL} Normal 0.1-1.0 [facility] Work Phone: Comment on above: PATIENT WAS FASTINGP ERFORMED BY: [place] 3453470 [facility] [id number] Information: [id number] Monocytes (Bld) [#/Vol] 0.6 10*3/uL Normal 0.1-1.0 [facility]; [facility] Work Phone: Comment on above: PATIENT WAS FASTINGP ERFORMED BY: [facility]6370 [facility] [id number] Information: [id number] Monocytes Auto #/vol (Bld) 0.6 {x10E3/uL} Normal 0.1-1.0 [facility] Work Phone: Monocytes/100 WBC (Bld) 9 % Normal 4-13 [facility] Work Phone: Comment on above: PATIENT WAS FASTINGP ERFORMED BY: [facility]6370 [facility] [id number] Information: [id number] Monocytes/100 WBC Auto (Bld) 9 % Normal 4-13 [facility] Work Phone: Neutrophils (Bld) [#/Vol] 4.3 {x10E3/uL} Normal 1.8-7.8 [facility] Work Phone: Comment on above: PATIENT WAS FASTINGP ERFORMED BY: [place] 3453470 [facility] [id number] Information: [id number] Neutrophils (Bld) [#/Vol] 4.3 10*3/uL Normal 1.8-7.8 [facility]; [facility] Work Phone: Comment on above: PATIENT WAS FASTINGP ERFORMED BY: [place] 3453470 [facility] [id number] Information: [id number] Neutrophils Auto #/vol (Bld) 4.3 {x10E3/uL} Normal 1.8-7.8 [facility] Work Phone: Neutrophils/100 WBC (Bld) 68 % Normal 40-74 [facility] Work Phone: Comment on above: PATIENT WAS FASTINGP ERFORMED BY: [facility]6370 [facility] [id number] Information: [id number] Neutrophils/100 WBC Auto (Bld) 68 % Normal 40-74 [facility] Work Phone: Platelets (Bld) [#/Vol] 257 {x10E3/uL} Normal 140-415 [facility] Work Phone: Comment on above: PATIENT WAS FASTINGP ERFORMED BY: [facility]6370 [facility] [id number] Information: [id number] Platelets (Bld) [#/Vol] 257 10*3/uL Normal 140-415 [facility]; [facility] Work Phone: Comment on above: PATIENT WAS FASTINGP ERFORMED BY: AUDREY Fu6370 [facility] [id number] Information: [id number] Platelets Auto #/vol (Bld) 257 {x10E3/uL} Normal 140-415 [facility] Work Phone: RBC (Bld) [#/Vol] 5.26 {x10E6/uL} Normal 4.10-5.60 [facility] Internal Medicine Work Phone: Comment on above: PATIENT WAS FASTINGP ERFORMED BY: AUDREY Razalin6370 [facility] [id number] Information: [id number] RBC (Bld) [#/Vol] 5.26 10*6/uL Normal 4.10-5.60 [facility] Internal Medicine; [facility] Work Phone: Comment on above: PATIENT WAS FASTINGP ERFORMED BY: AUDREY Razalin6370 [facility] [id number] Information: [id number] RBC Auto #/vol (Bld) 5.26 {x10E6/uL} Normal 4.10-5.60 [facility] Internal Medicine Work Phone: WBC (Bld) [#/Vol] 6.3 {x10E3/uL} Normal 4.0-10.5 [facility] Internal Medicine Work Phone: Comment on above: PATIENT WAS FASTINGP ERFORMED BY: AUDREY Razalin6370 [facility] [id number] Information: [id number] WBC (Bld) [#/Vol] 6.3 10*3/uL Normal 4.0-10.5 [facility] Internal Medicine; [facility] Work Phone: Comment on above: PATIENT WAS FASTINGP ERFORMED BY: AUDREY [employer] Zrwuis2656 [facility] [id number] Information: [id number] WBC Auto #/vol (Bld) 6.3 {x10E3/uL} Normal 4.0-10.5 [facility] Work Phone: LIPID PANEL ([id number])Ordered B y: Emt I/99 on 04-04-2009 Cholesterol in HDL mass conc 47 mg/dL Normal [facility] Work Phone: Comment on above: According to ATP-III Guidelines, HDL-C >59 mg/dL is considered anegative risk factor for CHD. PATIENT WAS FASTINGP ERFORMED BY: CB [facility] Qlcxqu4307 [address] RoadDublin [place] [id number] Cholesterol in LDL mass conc 128 mg/dL Abnormal 0-99 [facility] Work Phone: Comment on above: PATIENT WAS FASTINGP ERFORMED BY: CB [facility] Chwefu1992 [address] [place] [id number] Cholesterol in LDL/Cholesterol in HDL mass ratio 2.7 {ratio_units} Normal 0.0-3.6 [facility] Work Phone: Comment on above: PATIENT WAS FASTINGP ERFORMED BY: CB [facility] Nzwqdi6879 [address] RoadDublin [place] [id number] Cholesterol in VLDL mass conc 17 mg/dL Normal 5-40 [facility] Work Phone: Comment on above: PATIENT WAS FASTINGP ERFORMED BY: CB [facility] Ggzjfa5611 [address] RoadDublin [place] [id number] Cholesterol mass conc 192 mg/dL Normal 100-199 [facility] Work Phone: Comment on above: PATIENT WAS FASTINGP ERFORMED BY: CB [facility] Ouvcnk1462 [address] RoadDublin [place] [id number] Triglyceride mass conc 83 mg/dL Normal 0-149 [facility] Work Phone: Comment on above: PATIENT WAS FASTINGP ERFORMED BY: CB [facility] Swvdyl9798 [address] RoadDublin [place] [id number] METABOLIC PANEL, COMPREHENSI VE ([id number])Ordered By: Emt I/99 on 04-04-2009 Albumin mass conc 4.8 g/dL Normal 3.5-5.5 [facility] Internal Medicine Work Phone: Comment on above: PATIENT WAS FASTINGP ERFORMED BY: AUDREY [facility] Bzyuae7494 [address] RoadDublin [place] [id number] Albumin/Globulin mass ratio 2.1 {ratio} Normal 1.1-2.5 [facility] Internal Medicine Work Phone: Comment on above: PATIENT WAS FASTINGP ERFORMED BY: CB [facility] Paecje7925 [address] RoadDublin [place] [id number] ALP [Catalytic activity/Vol] 67 U/L Normal 25-150 [facility]; [facility] Internal Medicine Work Phone: Comment on above: PATIENT WAS FASTINGP ERFORMED BY: CB [facility] Hsxwmx0394 [address] RoadDublin [place] [id number] ALP enzyme act/vol 67 [iU]/L Normal 25-150 [facility] Internal Medicine Work Phone: Comment on above: PATIENT WAS FASTINGP ERFORMED BY: [facility] Hxqhsr5344 [address] RoadDublin [place] [id number] ALT [Catalytic activity/Vol] 36 U/L Normal 0-55 [facility] Internal Medicine; [facility] Internal Medicine Work Phone: Comment on above: PATIENT WAS FASTINGP ERFORMED BY: [facility] Amdorm4523 [address] RoadD[address] [place] [id number] ALT enzyme act/vol 36 [iU]/L Normal 0-55 [facility] Internal Medicine Work Phone: Comment on above: PATIENT WAS FASTINGP ERFORMED BY: CB [facility] Uszahk8772 [address] RoadD[address] [place] [id number] AST [Catalytic activity/Vol] 37 U/L Normal 0-40 [facility] Internal Medicine; [facility] Internal Medicine Work Phone: Comment on above: PATIENT WAS FASTINGP ERFORMED BY: CB [facility] Wjgxln3866 [address] RoadDublin [place] [id number] AST enzyme act/vol 37 [iU]/L Normal 0-40 [facility] Internal Medicine Work Phone: Comment on above: PATIENT WAS FASTINGP ERFORMED BY: AUDREY [facility] Upjdoh6188 [address] RoadDublin [place] [id number] Bilirubin mass conc 1.2 mg/dL Normal 0.1-1.2 Compr ensive Internal Medicine Work Phone: Comment on above: PATIENT WAS FASTINGP ERFORMED BY: AUDREY [facility] Dnwcco0535 [address] Roadblin [place] [id number] Calcium mass conc 10.5 mg/dL Abnormal 8.7-10.2 Compreh ensive Internal Medicine Work Phone: Comment on above: Please note refere nce interval change PATIENT WAS FASTINGP ERFORMED BY: AUDREY [facility] Mztewf0402 [address] [facility] [id number] Chloride molar conc 102 mmol/L Normal 97-108 Compr ensive Internal Medicine Work Phone: Comment on above: PATIENT WAS FASTINGP ERFORMED BY: AUDREY [facility] Lxymvt2153 [address] [facility] [id number] CO2 molar conc 25 mmol/L Normal 20-32 [facility] Internal Medicine Work Phone: Comment on above: PATIENT WAS FASTINGP ERFORMED BY: AUDREY [facility] Enivmt8652 [address] [facility]in [place] [id number] Creatinine mass conc 1.06 mg/dL Normal 0.76-1.27 Comp [facility] Work Phone: Comment on above: PATIENT WAS FASTINGP ERFORMED BY: CB [facility] Ivjstn7538 [address] [facility] [id number] GFR/1.73 sq M predicted among blacks MDRD vol rate/area (S/P/Bld) mL/min/{1.73_m2} Normal Comprehensi ve Internal Medicine Work Phone: Comment on above: Note: Persistent red uction for 3 months or more in an eGFR<60 mL/min/1.73 m2 defines CKD. Patients with eGFR values>/=60 mL/min/1.73 m2 may also have CKD if evidence of persistentproteinuria is present. Additional information may be found [email or web address]. PATIENT WAS FASTINGP ERFORMED BY: [facility]6[address] [facility] Hospitalin [place] [id number] GFR/1.73 sq M.predicted MDRD (S/P/Bld) [Vol rate/Area] mL/min/{1.73_m2} Normal [facility] Work Phone: Comment on above: PATIENT WAS FASTINGP ERFORMED BY: [facility]6[address] RoadFormerly [facility] [id number] GFR/1.73 sq M.predicted MDRD vol rate/area mL/min/{1.73_m2} Normal [facility] Work Phone: Comment on above: PATIENT WAS FASTINGP ERFORMED BY: [facility]6[address] [facility] [id number] Globulin (S) [Mass/Vol] 2.3 g/dL Normal 1.5-4.5 [facility] Work Phone: Comment on above: PATIENT WAS FASTINGP ERFORMED BY: [facility]6[address] [facility] [id number] Globulin Calculated mass conc (S) 2.3 g/dL Normal 1.5-4.5 [facility] Work Phone: Glucose mass conc 87 mg/dL Normal 65-99 Compreh ensive Internal Medicine Work Phone: Comment on above: PATIENT WAS FASTINGP ERFORMED BY: [facility]6370 [facility] [id number] Potassium molar conc 4.7 mmol/L Normal 3.5-5.2 Comp rehensive Internal Medicine Work Phone: Comment on above: PATIENT WAS FASTINGP ERFORMED BY: [facility] Qsmuns9730 [address] [facility] [id number] Protein mass conc 7.1 g/dL Normal 6.0-8.5 Compreh ensive Internal Medicine Work Phone: Comment on above: PATIENT WAS FASTINGP ERFORMED BY: [facility] Jgesxg2093 [address] [facility] [id number] Sodium molar conc 138 mmol/L Normal 135-145 Compreh ensive Internal Medicine Work Phone: Comment on above: PATIENT WAS FASTINGP ERFORMED BY: [facility] [facility] [id number] Urea nitrogen mass conc 19 mg/dL Normal 5-26 [facility] Work Phone: Comment on above: PATIENT WAS FASTINGP ERFORMED BY: [facility] [id number] Urea nitrogen/Creatinine mass ratio 18 mg/mg Normal 8-27 [facility] Work Phone: Comment on above: PATIENT WAS FASTINGP ERFORMED BY: [facility] [id number] PSA (PROSTATE SPECIFIC ANTIG EN) (V76.44)Ordered By: Emt I/99 on 04-04-2009 Prostate specific Ag mass conc 2.7 ng/mL Normal 0.0-4.0 [facility] Work Phone: Comment on above: [employer] ECLIA methodol ogy..According to the [place] [employer], Serum PSA shoulddecrease and remain at undetectable levels after radicalprostatectomy. The AUA defines biochemical recurrence as an initialPSA value 0.2 ng/mL or greater followed by a subsequent confirmatoryPSA value 0.2 ng/mL or greater.Values obtained with different assay methods or kits cannot be usedinterchangeably. Results cannot be interpreted as absolute evidenceof the presence or absence of malignant disease. PATIENT WAS FASTINGP ERFORMED BY: [facility] [id number] Anaerobic and Aerobic Cultur eOrdered By: Emt I/99 on 11-27-2007 Bacteria identified Aer cx Nom (Unsp spec) Final report Normal [facility] Work Phone: Comment on above: Clinical Information : SRC:RA PERFORMED BY: [facility] [facility] [id number] Bacteria identified Anaer cx Nom (Unsp spec) Final report Normal [facility] Work Phone: Comment on above: Clinical Information : SRC:RA PERFORMED BY: AUDREY [facility] [id number] [place] [id number] Bacteria identified Cx Nom (Unsp spec) Alpha streptococcus Normal Comprehen [facility] Internal [facility] Work Phone: Comment on above: Recovered from broth only. Clinical Information : SRC:RA PERFORMED BY: [facility] [id number] [place] [id number] Bacteria identified Cx Nom (Unsp spec) [id number] Normal [facility] Work Phone: Comment on above: No anaerobic growth in 72 hours. Clinical Information : SRC:RA PERFORMED BY: [facility] [id number] [address] [facility] [id number] LIPID PANEL ([id number])Ordered B y: Rosita Capone on 08-21-2007 Cholesterol in HDL mass conc 47 mg/dL Normal 40-59 [facility] Work Phone: Comment on above: PATIENT WAS FASTINGC linical Information: ADD [id number] ADD [id number] PERFORMED BY: [facility] [id number] [address] ebindleFormerly [facility] [id number] Cholesterol in LDL mass conc 132 mg/dL Abnormal 0-99 [facility] Work Phone: Comment on above: PATIENT WAS FASTINGC linical Information: ADD [id number] ADD [id number] PERFORMED BY: [facility] [address] ebindleFormerly [facility] [id number] Cholesterol in LDL/Cholesterol in HDL mass ratio SPRCS Normal [facility] Work Phone: Comment on above: If initial LDL-nicole sterol result is >100 mg/dL, assess forrisk factors. PATIENT WAS FASTINGC linical Information: ADD [id number] ADD [id number] PERFORMED BY: [facility] [id number] [address] ebindleFormerly [facility] [id number] Cholesterol in LDL/Cholesterol in HDL mass ratio 2.8 {ratio_units} Normal 0.0-3.6 [facility] Work Phone: Comment on above: PATIENT WAS FASTINGC linical Information: ADD [id number] ADD [id number] PERFORMED BY: [facility] [employer] [facility] [id number] Cholesterol in VLDL mass conc 22 mg/dL Normal 5-40 [facility] Work Phone: Comment on above: PATIENT WAS FASTINGC linical Information: ADD [id number] ADD [id number] PERFORMED BY: [facility] [id number] [facility] [id number] Cholesterol mass conc 201 mg/dL Abnormal 100-199 [facility] Work Phone: Comment on above: PATIENT WAS FASTINGC linical Information: ADD [id number] ADD [id number] PERFORMED BY: [facility] [id number] [facility] [id number] Triglyceride mass conc 112 mg/dL Normal 0-149 [facility] Work Phone: Comment on above: PATIENT WAS FASTINGC linical Information: ADD [id number] ADD [id number] [facility]FORMED [facility]: [facility] [id number] PSA (PROSTATE SPECIFIC ANTIG EN) (V76.44)Ordered By: Rosita Capone on 08-21-2007 Prostate specific Ag mass conc 2.2 ng/mL Normal 0.0-4.0 [facility] Work Phone: Comment on above: [employer] (formerly [employer]) ICMA methodology. .EFFECTIVE September 01, 2007, PSA will be changing to the Mike ECLIA methodology. Rebaselining will be offered for 90 days using panel [id number]. The second result, provided by the [employer] ICMA methodology will be provided at no charge. PATIENT WAS FASTINGP ERFORMED BY: [facility] [id number] [facility] [id number] LIPIDOrdered By: Janine sullivan on 09-12-2006 Cholesterol in HDL mass conc 43 mg/dL Normal [facility] Work Phone: Comment on above: Reference Range HDL <40 mg/dL Low HDL Cholesterol HDL >or= 60 mg/dL High HDL Cholesterol Cholesterol in LDL mass conc 123 mg/dL Normal 0-130 [facility] Work Phone: Cholesterol in VLDL mass conc 18 mg/dL Normal 5-40 [facility] Work Phone: Cholesterol mass conc 184 mg/dL Normal [facility] Work Phone: Comment on above: <200 mg/dL Desirable 200-240 mg/dL Borderline >240 mg/dL High Risk Triglyceride mass conc 88 mg/dL Normal [facility] Work Phone: Comment on above: Serum Triglycerides Reference Interval Normal <150 mg/dL Borderline high 150 - 199 mg/dL High 200 - 499 mg/dL Very High > or = 500 mg/dL PSA,TOT SCREENOrdered By: Sy stem Statistical Methods Professor on 09-12-2006 Prostate specific Ag mass conc 1.84 ng/mL Normal 0.00-4.00 [facility] Work Phone: Comment on above: This test was perfor med using the TPSA method for theBusiness e via [place] chemistry system.Values obtained with different assay methods cannot be usedinterchangably.When changing PSA assays in the course of monitoring apatient, additionaly sequential testing should be carriedout to confirm baseline values. Vital Signs Date Time Vital Sign Value Performing Clinician Facility 09-28-2024 10:23-0400 Body height 176.5 cm Jt Junior MD Work Phone: [facility] 09-28-2024 10:23-0400 Body mass index (BMI) [Ratio] 23.8 kg/m2 Jt Junior MD Work Phone: [facility] 09-28-2024 10:23-0400 Body temperature 97.39 [degF] Jt Junior MD Work Phone: [facility] 09-28-2024 10:23-0400 Body weight 74.16 kg Jt Junior MD Work Phone: [facility] 09-28-2024 10:23-0400 Diastolic blood pressure 74 mm[Hg] Jt Junior MD Work Phone: [facility] 09-28-2024 10:23-0400 Heart rate 80 /min Jt Junior MD Work Phone: [facility] 09-28-2024 10:23-0400 SaO2% (BldA) [Mass fraction] 98 % Jt Junior MD Work Phone: [facility] 09-28-2024 10:230400 Systolic blood pressure 108 mm[Hg] Jt Junior MD Work Phone: [facility] 08-05-2024 14:13-0400 Blood Pressure Cuff Size CELIA CASTILLO MD [facility] 08-05-2024 14:13-0400 Blood Pressure Location CELIA CASTILLO MD [facility] 08-05-2024 14:13-0400 Blood Pressure Method CELIA CASTILLO MD [facility] 08-05-2024 14:13-0400 Body height 177 cm CELIA CASTILLO MD [facility] 08-05-2024 14:13-0400 Body temperature 98.06 [degF] CELIA CASTILLO MD [facility] 08-05-2024 14:13-0400 Body weight 79.2 kg CELIA CASTILLO MD [facility] 08-05-2024 14:13-0400 Body weight 25.28 kg/m2 CELIA CASTILLO MD [facility] 08-05-2024 14:13-0400 Diastolic Blood Pressure Non-Invasive 89 mm[Hg] CELIA CASTILLO MD [facility] 08-05-2024 14:13-0400 Heart rate 77 /min CELIA CASTILLO MD [facility] 08-05-2024 14:13-0400 Systolic Blood Pressure Non-Invasive 148 mm[Hg] CELIA CASTILLO MD [facility] 06-05-2024 14:00-0500 Body temperature 97.59 [degF] Treatment Wstr Work Phone: [facility] 06-05-2024 14:00-0500 Diastolic blood pressure 88 mm[Hg] Treatment Wstr Work Phone: [facility] 06-05-2024 14:00-0500 Heart rate 87 /min Treatment Wstr Work Phone: [facility] 06-05-2024 14:00-0500 Systolic blood pressure 155 mm[Hg] Treatment Wstr Work Phone: [facility] 06-03-2024 09:07-0500 Body temperature 98.2 [degF] Treatment Wstr Work Phone: [facility] 06-03-2024 09:07-0500 Diastolic blood pressure 80 mm[Hg] Treatment Wstr Work Phone: [facility] 06-03-2024 09:07-0500 Heart rate 71 /min Treatment Wstr Work Phone: [facility] 06-03-2024 09:07-0500 SaO2% (BldA) [Mass fraction] 99 % Treatment Wstr Work Phone: [facility] 06-03-2024 09:07-0500 Systolic blood pressure 131 mm[Hg] Treatment Wstr Work Phone: [facility] 06-01-2024 08:46-0500 Diastolic blood pressure 82 mm[Hg] Treatment Wstr Work Phone: [facility] 06-01-2024 08:46-0500 Heart rate 67 /min Treatment Wstr Work Phone: [facility] 06-01-2024 08:46-0500 Systolic blood pressure 150 mm[Hg] Treatment Wstr Work Phone: [facility] 06-01-2024 08:21-0500 Body temperature 98.1 [degF] Treatment Wstr Work Phone: [facility] 06-01-2024 08:21-0500 Respiratory rate 18 /min Treatment Wstr Work Phone: [facility] 06-01-2024 08:21-0500 SaO2% (BldA) [Mass fraction] 100 % Treatment Wstr Work Phone: [facility] 05-28-2024 15:02-0500 Body temperature 98.8 [degF] Treatment Wstr Work Phone: [facility] 05-28-2024 15:02-0500 Diastolic blood pressure 85 mm[Hg] Treatment Wstr Work Phone: [facility] 05-28-2024 15:02-0500 Heart rate 79 /min Treatment Wstr Work Phone: [facility] 05-28-2024 15:02-0500 SaO2% (BldA) [Mass fraction] 99 % Treatment Wstr Work Phone: [facility] 05-28-2024 15:02-0500 Systolic blood pressure 162 mm[Hg] Treatment Wstr Work Phone: [facility] 05-26-2024 13:41-0500 Body temperature 98.2 [degF] Treatment Wstr Work Phone: [facility] 05-26-2024 13:41-0500 Diastolic blood pressure 92 mm[Hg] Treatment Wstr Work Phone: [facility] 05-26-2024 13:41-0500 Heart rate 72 /min Treatment Wstr Work Phone: [facility] 05-26-2024 13:41-0500 Respiratory rate 22 /min Treatment Wstr Work Phone: [facility] 05-26-2024 13:41-0500 SaO2% (BldA) [Mass fraction] 100 % Treatment Wstr Work Phone: [facility] 05-26-2024 13:41-0500 Systolic blood pressure 151 mm[Hg] Treatment Wstr Work Phone: [facility] 05-22-2024 10:39-0500 Body height 177.8 cm Cathie Salamanca Work Phone: [facility] 05-22-2024 10:39-0500 Body mass index (BMI) [Ratio] 26.11 kg/m2 Cathie Salamanca Work Phone: [facility] 05-22-2024 10:39-0500 Body temperature 97 [degF] Cathie Salamanca Work Phone: [facility] 05-22-2024 10:39-0500 Body weight 82.56 kg Cathie Salamanca Work Phone: [facility] 05-22-2024 10:39-0500 Diastolic blood pressure 78 mm[Hg] Cathie Salamanca Work Phone: [facility] 05-22-2024 10:39-0500 Heart rate 78 /min Cathie Salamanca Work Phone: [facility] 05-22-2024 10:39-0500 SaO2% (BldA) [Mass fraction] 100 % Cathie Salamanca Work Phone: [facility] 05-22-2024 10:39-0500 Systolic blood pressure 147 mm[Hg] Cathie Salamanca Work Phone: [facility] 04-30-2024 13:04-0500 Body height 177.[address] Rosita Capone DO Work Phone: [facility] 02-13-2023 10:50-0500 Body temperature 97.3 [degF] Dr. Rosita Capone Work Phone: [facility] 02-13-2023 10:50-0500 Diastolic blood pressure 97 mm[Hg] Dr. Rosita Capone Work Phone: [facility] 02-13-2023 10:50-0500 Heart rate 75 /min Dr. Rosita Capone Work Phone: [facility] 02-13-2023 10:50-0500 Respiratory rate 16 /min Dr. Rosita Capone Work Phone: [facility] 02-13-2023 10:50-0500 SaO2% (BldA) [Mass fraction] 100 % Dr. Rosita Capone Work Phone: [facility] 02-13-2023 10:50-0500 Systolic blood pressure 152 mm[Hg] Dr. Rosita Capone Work Phone: [facility] 02-13-2023 06:28-0500 Body height 177.[address] Rosita Capone Work Phone: [facility] 02-13-2023 06:28-0500 Body mass index (BMI) [Ratio] 25.6 kg/m2 Dr. Rosita Capone Work Phone: [facility] 02-13-2023 06:28-0500 Body weight [address] Rosita Capone Work Phone: [facility] 01-21-2023 09:13-0400 Body mass index (BMI) [Ratio] 26.2 kg/m2 Dr. Rosita Capone Work Phone: [facility] 01-21-2023 09:13-0400 Body weight [address] Rosita Capone Work Phone: [facility] 01-21-2023 09:13-0400 Diastolic blood pressure 71 mm[Hg] Dr. Rosita Capone Work Phone: [facility] 01-21-2023 09:13-0400 Respiratory rate 16 /min Dr. Rosita Capone Work Phone: [facility] 01-21-2023 09:13-0400 Systolic blood pressure 121 mm[Hg] Dr. Rosita Capone Work Phone: [facility] 01-14-2023 10:52-0400 Body height 179.07 cm NADEGE Lara LPN [facility]; [facility] Work Phone: 01-14-2023 10:52-0400 Body mass index (BMI) [Ratio] 25.89 kg/m2 NADEGE Lara LPN [facility]; [facility] Work Phone: 01-14-2023 10:52-0400 Body surface area Derived from formula 2.02 m2 NADEGE Lara LPN [facility]; [facility] Work Phone: 01-14-2023 10:52-0400 Body temperature 97.9 [degF] NADEGE Lara MIKE [facility]; [facility] Work Phone: Comment on above: Method: Temporal 01-14-2023 10:52-0400 Body weight 83.01 kg NADEGE Lara MIKE [facility]; [facility] Work Phone: 01-14-2023 10:52-0400 Diastolic blood pressure 78 mm[Hg] NADEGE Lara CLINICAL DIRECTOR [facility]; [facility] Work Phone: Comment on above: Patient Position: Sitting; Cuff Location : Left Arm; Cuff Size: Standard 01-14-2023 10:52-0400 Heart rate 78 /min NADEGE Lara MIKE [facility]; [facility] Work Phone: Comment on above: Pattern: Regular 01-14-2023 10:52-0400 Respiratory rate 18 /min NADEGE Marco MCKEON [facility]; [facility] Work Phone: Comment on above: Pattern: Unlabored 01-14-2023 10:52-0400 SaO2% (BldA) [Mass fraction] 99 % NADEGE Lara CLINICAL DIRECTOR [facility]; [facility] Work Phone: Comment on above: Room air 01-14-2023 10:52-0400 Systolic blood pressure 126 mm[Hg] NADEGE Lara MIKE [facility]; [facility] Work Phone: Comment on above: Patient Position: Sitting; Cuff Location : Left Arm; Cuff Size: Standard 10-17-2022 08:49-0400 Body mass index (BMI) [Ratio] 26.2 kg/m2 Dr. Rosita Capone Work Phone: [facility] 10-17-2022 08:49-0400 Body temperature 97.2 [degF] Dr. Rosita Capone Work Phone: [facility] 10-17-2022 08:49-0400 Body weight 83.[address] Rosita Capone Work Phone: [facility] 10-17-2022 08:49-0400 Diastolic blood pressure 90 mm[Hg] Dr. Rosita Capone Work Phone: [facility] 10-17-2022 08:49-0400 Heart rate 69 /min Dr. Rosita Capone Work Phone: [facility] 10-17-2022 08:49-0400 Respiratory rate 18 /min Dr. Rosita Capone Work Phone: [facility] 10-17-2022 08:49-0400 SaO2% (BldA) [Mass fraction] 96 % Dr. Rosita Capone Work Phone: [facility] 10-17-2022 08:49-0400 Systolic blood pressure 142 mm[Hg] Dr. Rosita Capone Work Phone: [facility] 10-05-2022 11:01-0400 Body height 179.07 cm [facility]; [facility] Work Phone: 10-05-2022 11:01-0400 Body mass index (BMI) [Ratio] 25.52 kg/m2 [facility]; [facility] Work Phone: 10-05-2022 11:01-0400 Body surface area Derived from formula 2.01 m2 [facility]; [facility] Work Phone: 10-05-2022 11:01-0400 Body temperature 97.1 [degF] [facility]; [facility] Work Phone: 10-05-2022 11:01-0400 Body weight 81.82 kg [facility]; [facility] Work Phone: 10-05-2022 11:01-0400 Diastolic blood pressure 80 mm[Hg] [facility]; [facility] Work Phone: Comment on above: Patient Position: Sitting; Cuff Location : Left Arm; Cuff Size: Standard 10-05-2022 11:01-0400 Heart rate 69 /min Max Petersyor [facility]; [facility] Work Phone: Comment on above: Pattern: Regular 10-05-2022 11:01-0400 SaO2% (BldA) [Mass fraction] 97 % Max Petersyor [facility]; [facility] Work Phone: Comment on above: Room air 10-05-2022 11:01-0400 Systolic blood pressure 134 mm[Hg] Max Trinh [facility]; [facility] Work Phone: Comment on above: Patient Position: Sitting; Cuff Location : Left Arm; Cuff Size: Standard 07-16-2022 09:52-0400 Body height 179.07 cm Lou Shah CLINICAL DIRECTOR [facility]; [facility] Work Phone: 07-16-2022 09:52-0400 Body mass index (BMI) [Ratio] 25.66 kg/m2 Louneeru Shah [facility]; [facility] Work Phone: 07-16-2022 09:52-0400 Body surface area Derived from formula 2.01 m2 Lou Richmondman CLINICAL DIRECTOR [facility]; [facility] Work Phone: 07-16-2022 09:52-0400 Body temperature 98.1 [degF] Louneeru Richmondman [facility]; [facility] Work Phone: 07-16-2022 09:52-0400 Body weight 82.27 kg Louneeru Shah [facility]; [facility] Work Phone: 07-16-2022 09:52-0400 Diastolic blood pressure 90 mm[Hg] Louneeru Shah [facility]; [facility] Work Phone: Comment on above: Patient Position: Sitting; Cuff Location : Left Arm; Cuff Size: Standard 07-16-2022 09:52-0400 Heart rate 81 /min Lou Alyssa [facility]; [facility] Work Phone: Comment on above: Pattern: Regular 07-16-2022 09:52-0400 Respiratory rate 16 /min Lou Shah [facility]; [facility] Work Phone: Comment on above: Pattern: Unlabored 07-16-2022 09:52-0400 SaO2% (BldA) [Mass fraction] 99 % Lou Shah [facility]; [facility] Work Phone: Comment on above: Room air 07-16-2022 09:52-0400 Systolic blood pressure 140 mm[Hg] Lou Shah [facility]; [facility] Work Phone: Comment on above: Patient Position: Sitting; Cuff Location : Left Arm; Cuff Size: Standard 06-08-2022 09:28-0500 Body height 179.07 cm [facility]; [facility] Work Phone: 06-08-2022 09:28-0500 Body mass index (BMI) [Ratio] 26.2 kg/m2 [facility]; [facility] Work Phone: 06-08-2022 09:28-0500 Body surface area Derived from formula 2.03 m2 [facility]; [facility] Work Phone: 06-08-2022 09:28-0500 Body temperature 96.9 [degF] [facility]; [facility] Work Phone: 06-08-2022 09:28-0500 Body weight 84.03 kg [facility]; [facility] Work Phone: 06-08-2022 09:28-0500 Diastolic blood pressure 80 mm[Hg] [facility]; [facility] Work Phone: Comment on above: Patient Position: Sitting; Cuff Location : Left Arm; Cuff Size: Standard 06-08-2022 09:28-0500 Heart rate 63 /min [facility]; [facility] Work Phone: Comment on above: Pattern: Regular 06-08-2022 09:28-0500 Respiratory rate 16 /min Nubia Navas [facility]; [facility] Work Phone: Comment on above: Pattern: Unlabored 06-08-2022 09:28-0500 SaO2% (BldA) [Mass fraction] 98 % [facility]; [facility] Work Phone: Comment on above: Room air 06-08-2022 09:28-0500 Systolic blood pressure 140 mm[Hg] Nubia Navas [facility]; [facility] Work Phone: Comment on above: Patient Position: Sitting; Cuff Location : Left Arm; Cuff Size: Standard 12-19-2021 11:45-0400 Body height 177.8 cm [facility] Work Phone: 12-19-2021 11:45-0400 Body mass index (BMI) [Ratio] 26.5 kg/m2 [facility] Work Phone: 12-19-2021 11:45-0400 Body temperature 97 [degF] [facility] Work Phone: 12-19-2021 11:45-0400 Body weight 83.91 kg [facility] Work Phone: 12-19-2021 11:45-0400 Diastolic blood pressure 108 mm[Hg] [facility] Work Phone: 12-19-2021 11:45-0400 Heart rate 98 /min [facility] Work Phone: 12-19-2021 11:45-0400 Respiratory rate 18 /min [facility] Work Phone: 12-19-2021 11:45-0400 SaO2% (BldA) [Mass fraction] 90 % [facility] Work Phone: 12-19-2021 11:45-0400 Systolic blood pressure 160 mm[Hg] [facility] Work Phone: 06-07-2021 11:18-0500 Body height 179.07 cm Vanita Blankenship [facility]; [facility] Work Phone: 06-07-2021 11:18-0500 Body mass index (BMI) [Ratio] 24.9 kg/m2 Vanita Blankenship CMA [facility]; [facility] Work Phone: 06-07-2021 11:18-0500 Body surface area Derived from formula 1.99 m2 Vanita Blankenship [facility]; [facility] Work Phone: 06-07-2021 11:18-0500 Body temperature 97.3 [degF] Vanita Blankenship [employer]ANDFILL ATTENDANT [facility]; [facility] Work Phone: Comment on above: Method: Infrared 06-07-2021 11:18-0500 Body weight 79.83 kg Vanita Blankenship [facility]; [facility] Work Phone: 06-07-2021 11:18-0500 Diastolic blood pressure 84 mm[Hg] Vanita Blankenship CMA [facility]; [facility] Work Phone: Comment on above: Patient Position: Sitting; Cuff Location : Left Arm; Cuff Size: Standard 06-07-2021 11:18-0500 Heart rate 84 /min Vanita Blankenship [employer]ANDFILL ATTENDANT [facility]; [facility] Work Phone: Comment on above: Pattern: Regular 06-07-2021 11:18-0500 Respiratory rate 18 /min Vanita Blankenship [facility]; [facility] Work Phone: Comment on above: Pattern: Unlabored 06-07-2021 11:18-0500 SaO2% (BldA) [Mass fraction] 98 % Vanita Blankenship [facility]; [facility] Work Phone: Comment on above: Room air 06-07-2021 11:18-0500 Systolic blood pressure 138 mm[Hg] Vanita Blankenship [facility]; [facility] Work Phone: Comment on above: Patient Position: Sitting; Cuff Location : Left Arm; Cuff Size: Standard 12-13-2020 09:43-0400 Body height 179.07 cm Rach Slarb CLINICAL DIRECTOR [facility]; [facility] Work Phone: Comment on above: pt reported 12-13-2020 09:43-0400 Body mass index (BMI) [Ratio] 24.9 kg/m2 Rach Slarb CLINICAL DIRECTOR [facility]; [facility] Work Phone: Comment on above: pt reported 12-13-2020 09:43-0400 Body surface area Derived from formula 1.99 m2 Rach Slarb CLINICAL DIRECTOR [facility]; [facility] Work Phone: Comment on above: pt reported 12-13-2020 09:43-0400 Body temperature 98 [degF] Rach Slarb CLINICAL DIRECTOR [facility]; [facility] Work Phone: Comment on above: pt reported 12-13-2020 09:43-0400 Body weight 79.83 kg Rach Slarb CLINICAL DIRECTOR [facility]; [facility] Work Phone: Comment on above: pt reported 12-12-2020 11:52-0400 Body height 179.07 cm Lou Alyssa CLINICAL DIRECTOR [facility]; [facility] Work Phone: 12-12-2020 11:52-0400 Body mass index (BMI) [Ratio] 24.9 kg/m2 Lou Alyssa CLINICAL DIRECTOR [facility]; [facility] Work Phone: 12-12-2020 11:52-0400 Body surface area Derived from formula 1.99 m2 Lou Alyssa CLINICAL DIRECTOR [facility]; [facility] Work Phone: 12-12-2020 11:52-0400 Body temperature 98 [degF] Lou Alyssa CLINICAL DIRECTOR [facility]; [facility] Work Phone: Comment on above: Method: Temporal 12-12-2020 11:52-0400 Body weight 79.83 kg Lou Alyssa CLINICAL DIRECTOR [facility]; [facility] Work Phone: 12-12-2020 11:52-0400 SaO2% (BldA) [Mass fraction] 98 % Lou Shah LPN [facility]; [facility] Work Phone: Comment on above: Room air 03-09-2020 09:49-0500 BMI (Body Mass Index) 24.9 kg/m2 Rosita Capone DO Work Phone: [facility]; [facility] Work Phone: 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 03-09-2020 09:49-0500 BMI (Body Mass Index) 26.17 kg/m2 Rosita Capone [facility]; [facility] Work Phone: 03-09-2020 09:49-0500 Body Temperature 98.1 [degF] Rosita Capone DO Work Phone: [facility]; [facility] Work Phone: Comment on above: Method: Oral 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 03-09-2020 09:49-0500 Body weight 79.83 kg Rosita Capone DO Work Phone: [facility]; [facility] Work Phone: 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 03-09-2020 09:49-0500 Body weight 83.92 kg Rosita Capone [facility]; [facility] Work Phone: 03-09-2020 09:49-0500 BP Diastolic 72 mm[Hg] Rosita Capone DO Work Phone: [facility]; [facility] Work Phone: Comment on above: Patient Position: 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 03-09-2020 09:49-0500 BP Systolic 126 mm[Hg] Rosita Capone DO Work Phone: [facility]; [facility] Work Phone: Comment on above: Patient Position: 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 03-09-2020 09:49-0500 BSA (Body Surface Area) 1.99 m2 Rosita Liborio DO Work Phone: [facility]; [facility] Work Phone: 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 03-09-2020 09:49-0500 BSA (Body Surface Area) 2.03 m2 Rosita Capone [facility]; [facility] Work Phone: 03-09-2020 09:49-0500 Height 179.07 cm Rosita Capone DO Work Phone: [facility]; [facility] Work Phone: 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 03-09-2020 09:49-0500 Pulse (Heart Rate) 66 /min Rosita Capone DO Work Phone: [facility]; [facility] Work Phone: Comment on above: Pattern: Regular 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 03-09-2020 09:49-0500 Respiratory Rate 16 /min Rosita Capone DO Work Phone: [facility]; [facility] Work Phone: Comment on above: Pattern: Unlabored 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 02-18-2020 07:37-0500 BMI (Body Mass Index) 26.17 kg/m2 [facility] Work Phone: 02-18-2020 07:37-0500 Body weight 83.92 kg [facility] Work Phone: 02-18-2020 07:37-0500 BSA (Body Surface Area) 2.03 m2 [facility] Work Phone: 02-18-2020 07:37-0500 Height 179.07 cm [facility] Work Phone: 03-06-2019 14:17-0500 BMI (Body Mass Index) 26.17 kg/m2 Jovita Calix RN [facility] Work Phone: Comment on above: home range 102-124/60-82 03-06-2019 14:17-0500 Body Temperature 97.6 [degF] Jovita Calix RN [facility] Work Phone: Comment on above: Method: Temporal home range 102-124/6 0-82 03-06-2019 14:17-0500 Body weight 83.92 kg Jovita Calix RN [facility] Work Phone: Comment on above: home range 102-124/60-82 03-06-2019 14:17-0500 BP Diastolic 87 mm[Hg] Jovita Calix RN [facility] Work Phone: Comment on above: Patient Position: Sitting; Cuff Location : Left Arm; Cuff Size: Standard home range 102-124/6 0-82 03-06-2019 14:17-0500 BP Systolic 152 mm[Hg] Jovita Calix RN [facility] Work Phone: Comment on above: Patient Position: Sitting; Cuff Location : Left Arm; Cuff Size: Standard home range 102-124/6 0-82 03-06-2019 14:17-0500 BSA (Body Surface Area) 2.03 m2 Jovita Calix RN [facility] Work Phone: Comment on above: home range 102-124/60-82 03-06-2019 14:17-0500 Height 179.07 cm Jovita Calix RN [facility] Work Phone: Comment on above: home range 102-124/60-82 03-06-2019 14:17-0500 Pulse (Heart Rate) 69 /min Jovita Calix RN [facility] Work Phone: Comment on above: Pattern: Regular home range 102-124/6 0-82 03-06-2019 14:17-0500 Pulse Oximetry 97 % Rosita Capone [facility] Work Phone: Comment on above: Room air home range 102-124/6 0-82 03-06-2019 14:17-0500 Respiratory Rate 16 /min Jovita Calix RN [facility] Work Phone: Comment on above: Pattern: Unlabored home range 102-124/6 0-82 03-06-2019 14:17-0500 SaO2% (BldA) [Mass fraction] 97 % Jovita Calix RN [facility]; [facility] Work Phone: Comment on above: Room air home range 102-124/6 0-82 11-20-2018 14:46-0400 BMI (Body Mass Index) 25.32 kg/m2 [facility] Work Phone: 11-20-2018 14:46-0400 Body weight 81.19 kg [facility] Work Phone: 11-20-2018 14:46-0400 BP Diastolic 86 mm[Hg] [facility] Work Phone: Comment on above: Patient Position: Sitting; Cuff Location : Left Arm; Cuff Size: Standard 11-20-2018 14:46-0400 BP Systolic 124 mm[Hg] [facility] Work Phone: Comment on above: Patient Position: Sitting; Cuff Location : Left Arm; Cuff Size: Standard 11-20-2018 14:46-0400 BSA (Body Surface Area) 2 m2 [facility] Work Phone: 11-20-2018 14:46-0400 Height 179.07 cm [facility] Work Phone: 11-20-2018 14:46-0400 Pulse (Heart Rate) 72 /min [facility] Work Phone: Comment on above: Pattern: Regular 11-20-2018 14:46-0400 Pulse Oximetry 98 % Rosita Hensleyon [facility] Work Phone: Comment on above: Room air 11-20-2018 14:46-0400 Respiratory Rate 16 /min [facility] Work Phone: Comment on above: Pattern: Unlabored 11-20-2018 14:46-0400 SaO2% (BldA) [Mass fraction] 98 % [facility]; [facility] Work Phone: Comment on above: Room air 09-24-2018 08:15-0400 BMI (Body Mass Index) 25.32 kg/m2 Vanita Blankenship [facility] Work Phone: 09-24-2018 08:15-0400 Body Temperature 97.5 [degF] Vanita Blankenship CMA [facility] Work Phone: Comment on above: Method: Rectal 09-24-2018 08:15-0400 Body weight 81.19 kg Vanita Blankenship [facility] Work Phone: 09-24-2018 08:15-0400 BP Diastolic 92 mm[Hg] Vanita Blankenship [facility] Work Phone: Comment on above: Patient Position: Sitting; Cuff Location : Left Arm; Cuff Size: Standard 09-24-2018 08:15-0400 BP Systolic 142 mm[Hg] Vanita Blankenship [facility] Work Phone: Comment on above: Patient Position: Sitting; Cuff Location : Left Arm; Cuff Size: Standard 09-24-2018 08:15-0400 BSA (Body Surface Area) 2 m2 Vanita Blankenship [facility] Work Phone: 09-24-2018 08:15-0400 Height 179.07 cm Vanita Blankenship [facility] Work Phone: 09-24-2018 08:15-0400 Pulse (Heart Rate) 66 /min Vanita Blankenship [facility] Work Phone: Comment on above: Pattern: Regular 09-24-2018 08:15-0400 Pulse Oximetry 97 % Rosita Liborio [facility] Work Phone: Comment on above: Room air 09-24-2018 08:15-0400 Respiratory Rate 18 /min Vanita Blankenship [facility] Work Phone: Comment on above: Pattern: Unlabored 09-24-2018 08:15-0400 SaO2% (BldA) [Mass fraction] 97 % Vanita Blankenship [facility]; [facility] Work Phone: Comment on above: Room air 09-24-2018 08:15-0400 Weight 81.19 kg Rosita Capone [facility] Work Phone: 07-09-2018 09:03-0400 BMI (Body Mass Index) 25.18 kg/m2 George Francis LPN [facility] Work Phone: 07-09-2018 09:03-0400 Body Temperature 98 [degF] George Francis LPN [facility] Work Phone: Comment on above: Method: Temporal 07-09-2018 09:03-0400 Body weight 80.74 kg George Francis LPN [facility] Work Phone: 07-09-2018 09:03-0400 BP Diastolic 70 mm[Hg] George Francis LPN [facility] Work Phone: Comment on above: Patient Position: Sitting; Cuff Location : Left Arm; Cuff Size: Standard 07-09-2018 09:03-0400 BP Systolic 128 mm[Hg] George Francis LPN [facility] Work Phone: Comment on above: Patient Position: Sitting; Cuff Location : Left Arm; Cuff Size: Standard 07-09-2018 09:03-0400 BSA (Body Surface Area) 2 m2 George Francis LPN [facility] Work Phone: 07-09-2018 09:03-0400 Height 179.07 cm George Francis LPN [facility] Work Phone: 07-09-2018 09:03-0400 Pulse (Heart Rate) 51 /min George Francis LPN [facility] Work Phone: Comment on above: Pattern: Regular 07-09-2018 09:03-0400 Pulse Oximetry 98 % Rosita Capone [facility] Work Phone: Comment on above: Room air 07-09-2018 09:03-0400 Respiratory Rate 16 /min George Francis LPN [facility] Work Phone: Comment on above: Pattern: Unlabored 07-09-2018 09:03-0400 SaO2% (BldA) [Mass fraction] 98 % George Francis LPN [facility]; [facility] Work Phone: Comment on above: Room air 07-09-2018 09:03-0400 Weight 80.74 kg Rosita Capone [facility] Work Phone: 12-16-2017 15:04-0400 BMI (Body Mass Index) 25.18 kg/m2 Vanita Blankenship CMA [facility] Work Phone: 12-16-2017 15:04-0400 Body Temperature 98 [degF] Vanita Blankenship [facility] Work Phone: Comment on above: Method: Temporal 12-16-2017 15:04-0400 Body weight 80.74 kg Vanita Blankenship [facility] Work Phone: 12-16-2017 15:04-0400 BP Diastolic 80 mm[Hg] Vanita Blankenship [facility] Work Phone: Comment on above: Patient Position: Sitting; Cuff Location : Left Arm; Cuff Size: Standard 12-16-2017 15:04-0400 BP Systolic 114 mm[Hg] Vanita Blankenship [facility] Work Phone: Comment on above: Patient Position: Sitting; Cuff Location : Left Arm; Cuff Size: Standard 12-16-2017 15:04-0400 BSA (Body Surface Area) 2 m2 Vanita Blankenship [facility] Work Phone: 12-16-2017 15:04-0400 Height 179.07 cm Vanita Blankenship [facility] Work Phone: 12-16-2017 15:04-0400 Pulse (Heart Rate) 69 /min Vanita Blankenship [facility] Work Phone: Comment on above: Pattern: Regular 12-16-2017 15:04-0400 Pulse Oximetry 98 % Rosita Capone [facility] Work Phone: Comment on above: Room air 12-16-2017 15:04-0400 Respiratory Rate 16 /min Vanita Blankenship [facility] Work Phone: Comment on above: Pattern: Unlabored 12-16-2017 15:04-0400 SaO2% (BldA) [Mass fraction] 98 % Vanita Pattie [facility]; [facility] Work Phone: Comment on above: Room air 12-16-2017 15:04-0400 Weight 80.74 kg Rosita Capone [facility] Work Phone: 12-13-2017 07:21-0400 BMI (Body Mass Index) 25.34 kg/m2 Sandrita Smith RN [facility] Work Phone: Comment on above: [facility] 12-13-2017 07:21-0400 Body Temperature 97.9 [degF] Sandrita Smith RN [facility] Work Phone: Comment on above: Method: Temporal [facility] 12-13-2017 07:21-0400 Body weight 81.25 kg Sandrita Smith RN [facility] Work Phone: Comment on above: [facility] 12-13-2017 07:21-0400 BP Diastolic 82 mm[Hg] Sandrtia Smith RN [facility] Work Phone: Comment on above: Patient Position: Sitting; Cuff Location : Left Arm; Cuff Size: Large [facility] nd [facility] a [facility] 12-13-2017 07:21-0400 BP Systolic 120 mm[Hg] Sandrita Smith RN [facility] Work Phone: Comment on above: Patient Position: Sitting; Cuff Location : Left Arm; Cuff Size: Large [facility] 12-13-2017 07:21-0400 BSA (Body Surface Area) 2 m2 Sandrita Smith RN [facility] Work Phone: Comment on above: [facility] glaucoma [facility] 12-13-2017 07:21-0400 Height 179.07 cm Sandrita Smith RN [facility] Work Phone: Comment on above: [facility] 12-13-2017 07:21-0400 Pulse (Heart Rate) 78 /min Sandrita Smith RN [facility] Work Phone: Comment on above: Pattern: Regular [facility] 12-13-2017 07:21-0400 Pulse Oximetry 98 % Rosita Hensleyon [facility] Work Phone: Comment on above: Room air [facility] 12-13-2017 07:21-0400 Respiratory Rate 18 /min Sandrita Smith RN [facility] Work Phone: Comment on above: Pattern: Unlabored [facility] had a [facility] 12-13-2017 07:21-0400 SaO2% (BldA) [Mass fraction] 98 % Sandrita Smith RN [facility]; [facility] Work Phone: Comment on above: Room air [facility] nd had a [facility] 12-13-2017 07:21-0400 Weight 81.25 kg Rosita Capone [facility] Work Phone: Comment on above: [facility] and [facility] glaucoma [facility] 11-18-2017 14:08-0400 BMI (Body Mass Index) 25.64 kg/m2 Sandrita Smith RN [facility] Work Phone: 11-18-2017 14:08-0400 Body weight 82.22 kg Sandrita Smith RN [facility] Work Phone: 11-18-2017 14:08-0400 BP Diastolic 80 mm[Hg] Sandrita Smith RN [facility] Work Phone: Comment on above: Patient Position: Sitting; Cuff Location : Left Arm; Cuff Size: Standard 11-18-2017 14:08-0400 BP Systolic 122 mm[Hg] Sandrita Smith RN [facility] Work Phone: Comment on above: Patient Position: Sitting; Cuff Location : Left Arm; Cuff Size: Standard 11-18-2017 14:08-0400 BSA (Body Surface Area) 2.01 m2 Sandrita Smith RN [facility] Work Phone: 11-18-2017 14:08-0400 Height 179.07 cm Sandrita Smith RN [facility] Work Phone: 11-18-2017 14:08-0400 Pulse (Heart Rate) 74 /min Sandrita Smith RN [facility] Work Phone: Comment on above: Pattern: Regular 11-18-2017 14:08-0400 Pulse Oximetry 97 % Rosita Liborio [facility] Work Phone: Comment on above: Room air 11-18-2017 14:08-0400 Respiratory Rate 18 /min Sandrita Smith RN [facility] Work Phone: Comment on above: Pattern: Unlabored 11-18-2017 14:08-0400 SaO2% (BldA) [Mass fraction] 97 % Sandrita Smith RN [facility]; [facility] Work Phone: Comment on above: Room air 11-18-2017 14:08-0400 Weight 82.22 kg Rosita Capone [facility] Work Phone: 05-22-2017 10:29-0500 BMI (Body Mass Index) 25.6 kg/m2 Jovita Calix RN [facility] Work Phone: 05-22-2017 10:29-0500 Body Temperature 96.8 [degF] Jovita Calix RN [facility] Work Phone: Comment on above: Method: Oral 05-22-2017 10:29-0500 Body weight 82.1 kg Jovita Calix RN [facility] Work Phone: 05-22-2017 10:29-0500 BP Diastolic 78 mm[Hg] Jovita Calix RN [facility] Work Phone: Comment on above: Patient Position: Sitting; Cuff Location : Left Arm; Cuff Size: Standard 05-22-2017 10:29-0500 BP Systolic 124 mm[Hg] Jovita Calix RN [facility] Work Phone: Comment on above: Patient Position: Sitting; Cuff Location : Left Arm; Cuff Size: Standard 05-22-2017 10:29-0500 BSA (Body Surface Area) 2.01 m2 Jovita L Long RN [facility] Work Phone: 05-22-2017 10:29-0500 Height 179.07 cm Jovita Calix RN [facility] Work Phone: 05-22-2017 10:29-0500 Pulse (Heart Rate) 16 /min Jovita Calix RN [facility] Work Phone: Comment on above: Pattern: Regular 05-22-2017 10:29-0500 Respiratory Rate 16 /min Jovita Calix RN [facility] Work Phone: Comment on above: Pattern: Unlabored 05-22-2017 10:29-0500 Weight 82.1 kg Rosita Capone [facility] Work Phone: 03-13-2017 11:04-0500 BMI (Body Mass Index) 26.05 kg/m2 Sandrita Smith RN [facility] Work Phone: 03-13-2017 11:04-0500 Body weight 83.52 kg Sandrita Smith RN [facility] Work Phone: 03-13-2017 11:04-0500 BP Diastolic 98 mm[Hg] Sandrita Smith RN [facility] Work Phone: Comment on above: Patient Position: Sitting; Cuff Location : Left Arm; Cuff Size: Standard 03-13-2017 11:04-0500 BP Systolic 158 mm[Hg] Sandrita Smith RN [facility] Work Phone: Comment on above: Patient Position: Sitting; Cuff Location : Left Arm; Cuff Size: Standard 03-13-2017 11:04-0500 BSA (Body Surface Area) 2.03 m2 Sandrita Smith RN [facility] Work Phone: 03-13-2017 11:04-0500 Height 179.07 cm Sandrita Smith RN [facility] Work Phone: 03-13-2017 11:04-0500 Pulse (Heart Rate) 74 /min Sandrita Smith RN [facility] Work Phone: Comment on above: Pattern: Regular 03-13-2017 11:04-0500 Pulse Oximetry 98 % Rosita Hensleyon [facility] Work Phone: Comment on above: Room air 03-13-2017 11:04-0500 Respiratory Rate 18 /min Sandrita Smith RN [facility] Work Phone: Comment on above: Pattern: Unlabored 03-13-2017 11:04-0500 SaO2% (BldA) [Mass fraction] 98 % Sandrita Smith RN [facility]; [facility] Work Phone: Comment on above: Room air 03-13-2017 11:04-0500 Weight 83.52 kg Rosita Capone [facility] Work Phone: 03-01-2017 08:53-0500 BMI (Body Mass Index) 25.89 kg/m2 Sandrita Smith RN [facility] Work Phone: 03-01-2017 08:53-0500 Body weight 83.01 kg Sandrita Smith RN [facility] Work Phone: 03-01-2017 08:53-0500 BP Diastolic 98 mm[Hg] Sandrita Smith RN [facility] Work Phone: Comment on above: Patient Position: Sitting; Cuff Location : Left Arm; Cuff Size: Large 03-01-2017 08:53-0500 BP Systolic 158 mm[Hg] Sandrita Smith RN [facility] Work Phone: Comment on above: Patient Position: Sitting; Cuff Location : Left Arm; Cuff Size: Large 03-01-2017 08:53-0500 BSA (Body Surface Area) 2.02 m2 Sandrita Simth RN [facility] Work Phone: 03-01-2017 08:53-0500 Height 179.07 cm Sandrita Smith RN [facility] Work Phone: 03-01-2017 08:53-0500 Pulse (Heart Rate) 69 /min Sandrita Smith RN [facility] Work Phone: Comment on above: Pattern: Regular 03-01-2017 08:53-0500 Pulse Oximetry 99 % Rosita Capone [facility] Work Phone: Comment on above: Room air 03-01-2017 08:53-0500 Respiratory Rate 18 /min Sandrita Smith RN [facility] Work Phone: Comment on above: Pattern: Unlabored 03-01-2017 08:53-0500 SaO2% (BldA) [Mass fraction] 99 % Sandrita Smith RN [facility]; [facility] Work Phone: Comment on above: Room air 03-01-2017 08:53-0500 Weight 83.01 kg Rosita Liborio [facility] Work Phone: 02-27-2017 10:00-0500 BMI (Body Mass Index) 26.17 kg/m2 Rach Slarb CLINICAL DIRECTOR [facility] Work Phone: 02-27-2017 10:00-0500 Body Temperature 97.2 [degF] Rach Slarb CLINICAL DIRECTOR [facility] Work Phone: 02-27-2017 10:00-0500 Body weight 83.92 kg Rach Slarb CLINICAL DIRECTOR [facility] Work Phone: 02-27-2017 10:00-0500 BP Diastolic 84 mm[Hg] Rach Slarb CLINICAL DIRECTOR [facility] Work Phone: Comment on above: Patient Position: Sitting; Cuff Location : Left Arm; Cuff Size: Standard 02-27-2017 10:00-0500 BP Systolic 132 mm[Hg] Rach Slarb CLINICAL DIRECTOR [facility] Work Phone: Comment on above: Patient Position: Sitting; Cuff Location : Left Arm; Cuff Size: Standard 02-27-2017 10:00-0500 BSA (Body Surface Area) 2.03 m2 Rach Slarb CLINICAL DIRECTOR [facility] Work Phone: 02-27-2017 10:00-0500 Height 179.07 cm Rach Slarb CLINICAL DIRECTOR [facility] Work Phone: 02-27-2017 10:00-0500 Pulse (Heart Rate) 73 /min Rach Slarb CLINICAL DIRECTOR [facility] Work Phone: Comment on above: Pattern: Regular 02-27-2017 10:00-0500 Pulse Oximetry 98 % Rosita Capone [facility] Work Phone: Comment on above: Room air 02-27-2017 10:00-0500 Respiratory Rate 18 /min Rach Pineda [facility] Work Phone: Comment on above: Pattern: Unlabored 02-27-2017 10:00-0500 SaO2% (BldA) [Mass fraction] 98 % Rach Pineda CLINICAL DIRECTOR [facility]; [facility] Work Phone: Comment on above: Room air 02-27-2017 10:00-0500 Weight 83.92 kg Rosita Capone [facility] Work Phone: 04-27-2016 14:06-0500 BMI (Body Mass Index) 25.6 kg/m2 Sandrita Smith RN [facility] Work Phone: 04-27-2016 14:06-0500 Body Temperature 98.2 [degF] Sandrita Smith RN [facility] Work Phone: Comment on above: Method: Temporal 04-27-2016 14:06-0500 Body weight 82.1 kg Sandrita Smtih RN [facility] Work Phone: 04-27-2016 14:06-0500 BP Diastolic 86 mm[Hg] Sandrita Smith RN [facility] Work Phone: Comment on above: Patient Position: Sitting; Cuff Location : Left Arm; Cuff Size: Standard 04-27-2016 14:06-0500 BP Systolic 140 mm[Hg] Sandrita Smith RN [facility] Work Phone: Comment on above: Patient Position: Sitting; Cuff Location : Left Arm; Cuff Size: Standard 04-27-2016 14:06-0500 BSA (Body Surface Area) 2.01 m2 Sandrita Smith RN [facility] Work Phone: 04-27-2016 14:06-0500 Height 179.07 cm Sandrita Smith RN [facility] Work Phone: 04-27-2016 14:06-0500 Pulse (Heart Rate) 79 /min Sandrita Smith RN [facility] Work Phone: Comment on above: Pattern: Regular 04-27-2016 14:06-0500 Pulse Oximetry 98 % Rosita Hensleyon [facility] Work Phone: Comment on above: Room air 04-27-2016 14:06-0500 Respiratory Rate 18 /min Sandrita Smith RN [facility] Work Phone: Comment on above: Pattern: Unlabored 04-27-2016 14:06-0500 SaO2% (BldA) [Mass fraction] 98 % Sandrita Smith RN [facility]; [facility] Work Phone: Comment on above: Room air 04-27-2016 14:06-0500 Weight 82.1 kg Rosita Capone [facility] Work Phone: 01-12-2016 10:25-0400 BMI (Body Mass Index) 25.6 kg/m2 Rosita Liborio DO Work Phone: [facility] Work Phone: 01-12-2016 10:25-0400 Body weight 82.1 kg Rosita Liborio DO Work Phone: [facility] Work Phone: 01-12-2016 10:25-0400 BP Diastolic 80 mm[Hg] Rosita Liborio DO Work Phone: [facility] Work Phone: Comment on above: Patient Position: Sitting; Cuff Location : Left Arm; Cuff Size: Large 01-12-2016 10:25-0400 BP Systolic 122 mm[Hg] Rosita Liborio DO Work Phone: [facility] Work Phone: Comment on above: Patient Position: Sitting; Cuff Location : Left Arm; Cuff Size: Large 01-12-2016 10:25-0400 BSA (Body Surface Area) 2.01 m2 Rosita Liborio DO Work Phone: [facility] Work Phone: 01-12-2016 10:25-0400 Height 179.07 cm Rosita Liborio DO Work Phone: [facility] Work Phone: 01-12-2016 10:25-0400 Pulse (Heart Rate) 64 /min Rosita Capone DO Work Phone: [facility] Work Phone: Comment on above: Pattern: Regular 01-12-2016 10:25-0400 Pulse Oximetry 99 % Rosita Capone [facility] Work Phone: Comment on above: Room air 01-12-2016 10:25-0400 Respiratory Rate 18 /min Rosita Capone DO Work Phone: [facility] Work Phone: Comment on above: Pattern: Unlabored 01-12-2016 10:25-0400 SaO2% (BldA) [Mass fraction] 99 % Rosita Capone DO Work Phone: [facility]; [facility] Work Phone: Comment on above: Room air 01-12-2016 10:25-0400 Weight 82.1 kg Rosita Capone [facility] Work Phone: 05-16-2015 13:29-0500 BMI (Body Mass Index) 26.03 kg/m2 Sandrita Smith RN [facility] Work Phone: 05-16-2015 13:29-0500 Body weight 83.46 kg Sandrita Smith RN [facility] Work Phone: 05-16-2015 13:29-0500 BP Diastolic 90 mm[Hg] Sandrita Smith RN [facility] Work Phone: Comment on above: Patient Position: Sitting; Cuff Location : Left Arm; Cuff Size: Large 05-16-2015 13:29-0500 BP Systolic 138 mm[Hg] Sandrita Smith RN [facility] Work Phone: Comment on above: Patient Position: Sitting; Cuff Location : Left Arm; Cuff Size: Large 05-16-2015 13:29-0500 BSA (Body Surface Area) 2.03 m2 Sandrita Smith RN [facility] Work Phone: 05-16-2015 13:29-0500 Height 179.07 cm Sandrita Smith RN [facility] Work Phone: 05-16-2015 13:29-0500 Pulse (Heart Rate) 68 /min Sandrita Smith RN [facility] Work Phone: Comment on above: Pattern: Regular 05-16-2015 13:29-0500 Pulse Oximetry 98 % Rosita Capone [facility] Work Phone: Comment on above: Room air 05-16-2015 13:29-0500 Respiratory Rate 18 /min Sandrita Smith RN [facility] Work Phone: Comment on above: Pattern: Unlabored 05-16-2015 13:29-0500 SaO2% (BldA) [Mass fraction] 98 % Sandrita Smith RN [facility]; [facility] Work Phone: Comment on above: Room air 05-16-2015 13:29-0500 Weight 83.46 kg Rosita Capone [facility] Work Phone: 04-04-2015 15:06-0500 BMI (Body Mass Index) 25.48 kg/m2 Sandrita Smith RN [facility] Work Phone: 04-04-2015 15:06-0500 Body Temperature 97.6 [degF] Sandrita Smith RN [facility] Work Phone: Comment on above: Method: Temporal 04-04-2015 15:06-0500 Body weight 81.7 kg Sandrita Smith RN [facility] Work Phone: 04-04-2015 15:06-0500 BP Diastolic 78 mm[Hg] Sandrita Smith RN [facility] Work Phone: Comment on above: Patient Position: Sitting; Cuff Location : Left Arm; Cuff Size: Large 04-04-2015 15:06-0500 BP Systolic 122 mm[Hg] Sandrita Smith RN [facility] Work Phone: Comment on above: Patient Position: Sitting; Cuff Location : Left Arm; Cuff Size: Large 04-04-2015 15:06-0500 BSA (Body Surface Area) 2.01 m2 Sandrita Smith RN [facility] Work Phone: 04-04-2015 15:06-0500 Height 179.07 cm Sandrita Smith RN [facility] Work Phone: 04-04-2015 15:06-0500 Pulse (Heart Rate) 61 /min Sandrita Smith RN [facility] Work Phone: Comment on above: Pattern: Regular 04-04-2015 15:06-0500 Pulse Oximetry 98 % Rosita Capone [facility] Work Phone: Comment on above: Room air 04-04-2015 15:06-0500 Respiratory Rate 18 /min Sandrita Smith RN [facility] Work Phone: Comment on above: Pattern: Unlabored 04-04-2015 15:06-0500 SaO2% (BldA) [Mass fraction] 98 % Sandrita Smith RN [facility]; [facility] Work Phone: Comment on above: Room air 04-04-2015 15:06-0500 Weight 81.7 kg Rosita Capone [facility] Work Phone: 03-23-2015 10:43-0500 BMI (Body Mass Index) 24.93 kg/m2 Rach Slarb CLINICAL DIRECTOR [facility] Work Phone: 03-23-2015 10:43-0500 Body Temperature 98.2 [degF] Rach Slarb CLINICAL DIRECTOR [facility] Work Phone: 03-23-2015 10:43-0500 Body weight 79.95 kg Rach Slarb CLINICAL DIRECTOR [facility] Work Phone: 03-23-2015 10:43-0500 BP Diastolic 82 mm[Hg] Rach Slarb CLINICAL DIRECTOR [facility] Work Phone: Comment on above: Patient Position: Sitting; Cuff Location : Left Arm; Cuff Size: Standard 03-23-2015 10:43-0500 BP Systolic 118 mm[Hg] Rach Slarb CLINICAL DIRECTOR [facility] Work Phone: Comment on above: Patient Position: Sitting; Cuff Location : Left Arm; Cuff Size: Standard 03-23-2015 10:43-0500 BSA (Body Surface Area) 1.99 m2 Rach Slarb CLINICAL DIRECTOR [facility] Work Phone: 03-23-2015 10:43-0500 Height 179.07 cm Rach Slarb MI[facility] Work Phone: 03-23-2015 10:43-0500 Pulse (Heart Rate) 91 /min Rach Pineda CLINICAL DIRECTOR [facility] Work Phone: Comment on above: Pattern: Regular 03-23-2015 10:43-0500 Pulse Oximetry 98 % Rosita Capone [facility] Work Phone: Comment on above: Room air 03-23-2015 10:43-0500 Respiratory Rate 18 /min Rach Pineda MI[facility] Work Phone: Comment on above: Pattern: Unlabored 03-23-2015 10:43-0500 SaO2% (BldA) [Mass fraction] 98 % Rach Slatk [facility]; [facility] Work Phone: Comment on above: Room air 03-23-2015 10:43-0500 Weight 79.95 kg Rosita Hensleyon [facility] Work Phone: 03-14-2015 11:44-0500 BMI (Body Mass Index) 25.34 kg/m2 Sandrita Smith RN [facility] Work Phone: 03-14-2015 11:44-0500 Body weight 81.25 kg Sandrita Smith RN [facility] Work Phone: 03-14-2015 11:44-0500 BP Diastolic 84 mm[Hg] Sandrita Smith RN [facility] Work Phone: Comment on above: Patient Position: Sitting; Cuff Location : Left Arm; Cuff Size: Standard 03-14-2015 11:44-0500 BP Systolic 122 mm[Hg] Sandrita Smith RN [facility] Work Phone: Comment on above: Patient Position: Sitting; Cuff Location : Left Arm; Cuff Size: Standard 03-14-2015 11:44-0500 BSA (Body Surface Area) 2 m2 Sandrita Smith RN [facility] Work Phone: 03-14-2015 11:44-0500 Height 179.07 cm Sandrita Smith RN [facility] Work Phone: 03-14-2015 11:44-0500 Pulse (Heart Rate) 76 /min Sandrita Smith RN [facility] Work Phone: Comment on above: Pattern: Regular 03-14-2015 11:44-0500 Pulse Oximetry 98 % Rosita Capone [facility] Work Phone: Comment on above: Room air 03-14-2015 11:44-0500 Respiratory Rate 16 /min Sandrita Smith RN [facility] Work Phone: Comment on above: Pattern: Unlabored 03-14-2015 11:44-0500 SaO2% (BldA) [Mass fraction] 98 % Sandrita Smith RN [facility]; [facility] Work Phone: Comment on above: Room air 03-14-2015 11:44-0500 Weight 81.25 kg Rosita Capone [facility] Work Phone: 11-15-2014 14:04-0400 BMI (Body Mass Index) 25.46 kg/m2 Rach Slarb CLINICAL DIRECTOR [facility] Work Phone: 11-15-2014 14:04-0400 Body Temperature 98.2 [degF] Rach Slarb CLINICAL DIRECTOR [facility] Work Phone: 11-15-2014 14:04-0400 Body weight 81.65 kg Rach Slarb CLINICAL DIRECTOR [facility] Work Phone: 11-15-2014 14:04-0400 BP Diastolic 80 mm[Hg] Rach Slarb CLINICAL DIRECTOR [facility] Work Phone: Comment on above: Patient Position: Sitting; Cuff Location : Left Arm; Cuff Size: Standard 11-15-2014 14:04-0400 BP Systolic 116 mm[Hg] Rach Slarb CLINICAL DIRECTOR [facility] Work Phone: Comment on above: Patient Position: Sitting; Cuff Location : Left Arm; Cuff Size: Standard 11-15-2014 14:04-0400 BSA (Body Surface Area) 2.01 m2 Rach Slarb CLINICAL DIRECTOR [facility] Work Phone: 11-15-2014 14:04-0400 Height 179.07 cm Rach Slarb CLINICAL DIRECTOR [facility] Work Phone: 11-15-2014 14:04-0400 Pulse (Heart Rate) 71 /min Rach Pineda LPN [facility] Work Phone: Comment on above: Pattern: Regular 11-15-2014 14:04-0400 Pulse Oximetry 98 % Rosita Capone [facility] Work Phone: Comment on above: Room air 11-15-2014 14:04-0400 Respiratory Rate 16 /min Rach Pineda LPN [facility] Work Phone: Comment on above: Pattern: Unlabored 11-15-2014 14:04-0400 SaO2% (BldA) [Mass fraction] 98 % Rach Pineda LPN [facility]; [facility] Work Phone: Comment on above: Room air 11-15-2014 14:04-0400 Weight 81.65 kg Rosita Capone [facility] Work Phone: 06-15-2014 11:44-0400 BMI (Body Mass Index) 25.4 kg/m2 Rosita Capone [facility] Work Phone: 06-15-2014 11:44-0400 Body Temperature 97.9 [degF] Rosita Capone [facility] Work Phone: Comment on above: Method: Oral 06-15-2014 11:44-0400 Body weight 81.45 kg Rosita Capone [facility] Work Phone: 06-15-2014 11:44-0400 BP Diastolic 90 mm[Hg] Rosita Capone [facility] Work Phone: Comment on above: Patient Position: Sitting; Cuff Location : Left Arm; Cuff Size: Standard 06-15-2014 11:44-0400 BP Systolic 148 mm[Hg] Rosita Capone [facility] Work Phone: Comment on above: Patient Position: Sitting; Cuff Location : Left Arm; Cuff Size: Standard 06-15-2014 11:44-0400 BSA (Body Surface Area) 2 m2 Rosita Capone [facility] Work Phone: 06-15-2014 11:44-0400 Height 179.07 cm Rosita Capone [facility] Work Phone: 06-15-2014 11:44-0400 Pulse (Heart Rate) 64 /min Rosita Capone [facility] Work Phone: Comment on above: Pattern: Regular 06-15-2014 11:44-0400 Pulse Oximetry 98 % Rosita Capone [facility] Work Phone: Comment on above: Room air 06-15-2014 11:44-0400 SaO2% (BldA) [Mass fraction] 98 % Rosita Capone DO Work Phone: [facility]; [facility] Work Phone: Comment on above: Room air 06-15-2014 11:44-0400 Weight 81.45 kg Rosita Capone [facility] Work Phone: 03-01-2014 08:12-0500 BMI (Body Mass Index) 25.4 kg/m2 Sandrita Smith RN [facility] Work Phone: 03-01-2014 08:12-0500 Body weight 81.45 kg Sandrita Smith RN [facility] Work Phone: 03-01-2014 08:12-0500 BP Diastolic 84 mm[Hg] Sandrita Smith RN [facility] Work Phone: Comment on above: Patient Position: Sitting; Cuff Location : Left Arm; Cuff Size: Standard 03-01-2014 08:12-0500 BP Systolic 160 mm[Hg] Sandrita Smith RN [facility] Work Phone: Comment on above: Patient Position: Sitting; Cuff Location : Left Arm; Cuff Size: Standard 03-01-2014 08:12-0500 BSA (Body Surface Area) 2 m2 Sandrita Smith RN [facility] Work Phone: 03-01-2014 08:12-0500 Height 179.07 cm Sandrita Smith RN [facility] Work Phone: 03-01-2014 08:12-0500 Pulse (Heart Rate) 113 /min Sandrita Smith RN [facility] Work Phone: Comment on above: Pattern: Regular 03-01-2014 08:12-0500 Pulse Oximetry 98 % Rosita Capone [facility] Work Phone: Comment on above: Room air 03-01-2014 08:12-0500 Respiratory Rate 18 /min Sandrita Smith RN [facility] Work Phone: Comment on above: Pattern: Unlabored 03-01-2014 08:12-0500 SaO2% (BldA) [Mass fraction] 98 % Sandrita Smith RN [facility]; [facility] Work Phone: Comment on above: Room air 03-01-2014 08:12-0500 Weight 81.45 kg Rosita Capone [facility] Work Phone: 05-06-2012 10:08-0500 BMI (Body Mass Index) 25.5 kg/m2 Rosita Capone [facility] Work Phone: 05-06-2012 10:08-0500 Body Temperature 98.9 [degF] Rosita Capone [facility] Work Phone: Comment on above: Method: Oral 05-06-2012 10:08-0500 Body weight 81.76 kg Rosita Capone [facility] Work Phone: 05-06-2012 10:08-0500 BP Diastolic 78 mm[Hg] Rosita Capone [facility] Work Phone: Comment on above: Patient Position: Sitting; Cuff Location : Left Arm; Cuff Size: Standard 05-06-2012 10:08-0500 BP Systolic 132 mm[Hg] Rosita Capone [facility] Work Phone: Comment on above: Patient Position: Sitting; Cuff Location : Left Arm; Cuff Size: Standard 05-06-2012 10:08-0500 BSA (Body Surface Area) 2.01 m2 Rosita Capone [facility] Work Phone: 05-06-2012 10:08-0500 Height 179.07 cm Rosita Capone [facility] Work Phone: 05-06-2012 10:08-0500 Pulse (Heart Rate) 78 /min Rosita Capone [facility] Work Phone: Comment on above: Pattern: Regular 05-06-2012 10:08-0500 Respiratory Rate 18 /min Rosita Capone [facility] Work Phone: 05-06-2012 10:08-0500 Weight 81.76 kg Rosita Capone [facility] Work Phone: 06-29-2011 11:00-0400 BMI (Body Mass Index) 25.5 kg/m2 Rosita Capone [facility] Work Phone: 06-29-2011 11:00-0400 Body Temperature 99.4 [degF] Rosita Capone [facility] Work Phone: Comment on above: Method: Oral 06-29-2011 11:00-0400 Body weight 81.76 kg Rosiat Capone [facility] Work Phone: 06-29-2011 11:00-0400 BP Diastolic 78 mm[Hg] Rosita Capone [facility] Work Phone: Comment on above: Patient Position: Sitting; Cuff Location : Left Arm; Cuff Size: Standard 06-29-2011 11:00-0400 BP Systolic 132 mm[Hg] Rosita Capone [facility] Work Phone: Comment on above: Patient Position: Sitting; Cuff Location : Left Arm; Cuff Size: Standard 06-29-2011 11:00-0400 BSA (Body Surface Area) 2.01 m2 Rosita Capone [facility] Work Phone: 06-29-2011 11:00-0400 Height 179.07 cm Rosita Capone [facility] Work Phone: 06-29-2011 11:00-0400 Pulse (Heart Rate) 74 /min Rosita Capone [facility] Work Phone: Comment on above: Pattern: Regular 06-29-2011 11:00-0400 Pulse Oximetry 98 % Rosita Capone [facility] Work Phone: Comment on above: Room air 06-29-2011 11:00-0400 SaO2% (BldA) [Mass fraction] 98 % Rosita Capone DO Work Phone: [facility]; [facility] Work Phone: Comment on above: Room air 06-29-2011 11:00-0400 Weight 81.76 kg Rosita Capone [facility] Work Phone: 07-07-2010 11:36-0400 BMI (Body Mass Index) 25.5 kg/m2 Sandrita Smith RN [facility] Work Phone: 07-07-2010 11:36-0400 Body weight 81.76 kg Sandrita Smith RN [facility] Work Phone: 07-07-2010 11:36-0400 BP Diastolic 80 mm[Hg] Sandrita Smith RN [facility] Work Phone: Comment on above: Patient Position: Sitting; Cuff Location : Left Arm; Cuff Size: Large 07-07-2010 11:36-0400 BP Systolic 118 mm[Hg] Sandrita Smith RN [facility] Work Phone: Comment on above: Patient Position: Sitting; Cuff Location : Left Arm; Cuff Size: Large 07-07-2010 11:36-0400 BSA (Body Surface Area) 2.01 m2 Sandrita Smith RN [facility] Work Phone: 07-07-2010 11:36-0400 Height 179.07 cm Sandrita Smith RN [facility] Work Phone: 07-07-2010 11:36-0400 Pulse (Heart Rate) 64 /min Sandrita Smith RN [facility] Work Phone: Comment on above: Pattern: Regular 07-07-2010 11:36-0400 Respiratory Rate 20 /min Sandrita Smith RN [facility] Work Phone: Comment on above: Pattern: Unlabored 07-07-2010 11:36-0400 Weight 81.76 kg Rosita Capone [facility] Work Phone: 04-12-2010 08:59-0500 BMI (Body Mass Index) 25.5 kg/m2 Sandrita Smith RN [facility] Work Phone: 04-12-2010 08:59-0500 Body weight 81.76 kg Sandrita Smith RN [facility] Work Phone: 04-12-2010 08:59-0500 BP Diastolic 80 mm[Hg] Sandrita Smith RN [facility] Work Phone: Comment on above: Patient Position: Sitting; Cuff Location : Left Arm; Cuff Size: Large 04-12-2010 08:59-0500 BP Systolic 132 mm[Hg] Sandrita Smith RN [facility] Work Phone: Comment on above: Patient Position: Sitting; Cuff Location : Left Arm; Cuff Size: Large 04-12-2010 08:59-0500 BSA (Body Surface Area) 2.01 m2 Sandrita Smith RN [facility] Work Phone: 04-12-2010 08:59-0500 Height 179.07 cm Sandrita Smith RN [facility] Work Phone: 04-12-2010 08:59-0500 Pulse (Heart Rate) 60 /min Sandrita Smith RN [facility] Work Phone: Comment on above: Pattern: Regular 04-12-2010 08:59-0500 Respiratory Rate 20 /min Sandrita Smith RN [facility] Work Phone: Comment on above: Pattern: Unlabored 04-12-2010 08:59-0500 Weight 81.76 kg Rosita Capone [facility] Work Phone: 04-04-2009 10:48-0500 Body weight 82.19 kg Sandrita Smith RN [facility] Work Phone: 04-04-2009 10:48-0500 BP Diastolic 80 mm[Hg] Sandrita Smith RN [facility] Work Phone: Comment on above: Patient Position: Sitting; Cuff Location : Left Arm; Cuff Size: Large 04-04-2009 10:48-0500 BP Systolic 124 mm[Hg] Sandrita Smith RN [facility] Work Phone: Comment on above: Patient Position: Sitting; Cuff Location : Left Arm; Cuff Size: Large 04-04-2009 10:48-0500 Pulse (Heart Rate) 64 /min Sandrita Smith RN [facility] Work Phone: Comment on above: Pattern: Regular 04-04-2009 10:48-0500 Respiratory Rate 20 /min Sandrita Smith RN [facility] Work Phone: Comment on above: Pattern: Unlabored 04-04-2009 10:48-0500 Weight 82.19 kg Rosita Capone [facility] Work Phone: 12-25-2007 07:19-0400 BMI (Body Mass Index) 24.52 kg/m2 Sandrita Smith RN [facility] Work Phone: 12-25-2007 07:19-0400 Body weight 78.61 kg Sandrita Smith RN [facility] Work Phone: 12-25-2007 07:19-0400 BP Diastolic 82 mm[Hg] Sandrita Smith RN [facility] Work Phone: Comment on above: Patient Position: Sitting; Cuff Location : Left Arm; Cuff Size: Standard 12-25-2007 07:19-0400 BP Systolic 122 mm[Hg] Sandrita Smith RN [facility] Work Phone: Comment on above: Patient Position: Sitting; Cuff Location : Left Arm; Cuff Size: Standard 12-25-2007 07:19-0400 BSA (Body Surface Area) 1.97 m2 Sandrita Smith RN [facility] Work Phone: 12-25-2007 07:19-0400 Head Circumference 0 cm Rosita Capone [facility] Work Phone: 12-25-2007 07:19-0400 Head Occipital-frontal circumference 0 cm Sandrita Smith RN [facility]; [facility] Work Phone: 12-25-2007 07:19-0400 Height 179.07 cm Sandrita Smith RN [facility] Work Phone: 12-25-2007 07:19-0400 Pulse (Heart Rate) 60 /min Sandrita Smith RN [facility] Work Phone: Comment on above: Pattern: Regular 12-25-2007 07:19-0400 Respiratory Rate 16 /min Sandrita Smith RN [facility] Work Phone: Comment on above: Pattern: Unlabored 12-25-2007 07:19-0400 Weight 78.61 kg Rosita Capone [facility] Work Phone: 11-27-2007 07:47-0400 BMI (Body Mass Index) 25.63 kg/m2 Sandrita Smith RN [facility] Work Phone: 11-27-2007 07:47-0400 Body weight 82.19 kg Sandrita Smith RN [facility] Work Phone: 11-27-2007 07:47-0400 BP Diastolic 78 mm[Hg] Sandrita Smith RN [facility] Work Phone: Comment on above: Patient Position: Sitting; Cuff Location : Right Arm; Cuff Size: Standard 11-27-2007 07:47-0400 BP Systolic 142 mm[Hg] Sandrita Smith RN [facility] Work Phone: Comment on above: Patient Position: Sitting; Cuff Location : Right Arm; Cuff Size: Standard 11-27-2007 07:47-0400 BSA (Body Surface Area) 2.01 m2 Sandrita Smith RN [facility] Work Phone: 11-27-2007 07:47-0400 Head Circumference 0 cm Rosita Capone [facility] Work Phone: 11-27-2007 07:47-0400 Head Occipital-frontal circumference 0 cm Sandrita Smith RN [facility]; [facility] Work Phone: 11-27-2007 07:47-0400 Height 179.07 cm Sandrita Smith RN [facility] Work Phone: 11-27-2007 07:47-0400 Pulse (Heart Rate) 64 /min Sandrita Smith RN [facility] Work Phone: Comment on above: Pattern: Regular 11-27-2007 07:47-0400 Respiratory Rate 16 /min Sandrita Smith RN [facility] Work Phone: Comment on above: Pattern: Unlabored 11-27-2007 07:47-0400 Weight 82.19 kg Rosita Capone [facility] Work Phone: 09-18-2007 09:18-0400 BMI (Body Mass Index) 25.63 kg/m2 Sandrita Smith RN [facility] Work Phone: 09-18-2007 09:18-0400 Body weight 82.19 kg Sandrita Smith RN [facility] Work Phone: 09-18-2007 09:18-0400 BP Diastolic 78 mm[Hg] Sandrita Smith RN [facility] Work Phone: Comment on above: Patient Position: Sitting; Cuff Location : Right Arm; Cuff Size: Standard 09-18-2007 09:18-0400 BP Systolic 122 mm[Hg] Sandrita Smith RN [facility] Work Phone: Comment on above: Patient Position: Sitting; Cuff Location : Right Arm; Cuff Size: Standard 09-18-2007 09:18-0400 BSA (Body Surface Area) 2.01 m2 Sandrita Smith RN [facility] Work Phone: 09-18-2007 09:18-0400 Head Circumference 0 cm Rosita Capone [facility] Work Phone: 09-18-2007 09:18-0400 Head Occipital-frontal circumference 0 cm Sandrita Smith RN [facility] Work Phone: 09-18-2007 09:18-0400 Height 179.07 cm Sandrita Smith RN [facility] Work Phone: 09-18-2007 09:18-0400 Pulse (Heart Rate) 88 /min Sandrita Smith RN [facility] Work Phone: Comment on above: Pattern: Regular 09-18-2007 09:18-0400 Respiratory Rate 20 /min Sandrita Smith RN [facility] Work Phone: Comment on above: Pattern: Unlabored 09-18-2007 09:18-0400 Weight 82.19 kg Rosita Capone [facility] Work Phone: 08-21-2007 09:04-0400 BMI (Body Mass Index) 25.63 kg/m2 Sandrita Smith RN [facility] Work Phone: 08-21-2007 09:04-0400 Body weight 82.19 kg Sandrita Smith RN [facility] Work Phone: 08-21-2007 09:04-0400 BP Diastolic 86 mm[Hg] Sandrita Smith RN [facility] Work Phone: Comment on above: Patient Position: Sitting; Cuff Location : Left Arm; Cuff Size: Standard 08-21-2007 09:04-0400 BP Systolic 120 mm[Hg] Sandrita Smith RN [facility] Work Phone: Comment on above: Patient Position: Sitting; Cuff Location : Left Arm; Cuff Size: Standard 08-21-2007 09:04-0400 BSA (Body Surface Area) 2.01 m2 Sandrita Smith RN [facility] Work Phone: 08-21-2007 09:04-0400 Head Circumference 0 cm Rosita Capone [facility] Work Phone: 08-21-2007 09:04-0400 Head Occipital-frontal circumference 0 cm Sandrita Smith RN [facility]; [facility] Work Phone: 08-21-2007 09:04-0400 Height 179.07 cm Sandrita Smith RN [facility] Work Phone: 08-21-2007 09:04-0400 Pulse (Heart Rate) 16 /min Sandrita Smith RN [facility] Work Phone: Comment on above: Pattern: Regular 08-21-2007 09:04-0400 Respiratory Rate 72 /min Sandrita Smith RN [facility] Work Phone: Comment on above: Pattern: Unlabored 08-21-2007 09:04-0400 Weight 82.19 kg Rosita Liborio [facility] Work Phone: 08-01-2006 09:03-0400 BMI (Body Mass Index) 25.7 kg/m2 Indu Culp RN [facility] Work Phone: 08-01-2006 09:03-0400 Body Temperature 97.8 [degF] Indu Culp RN [facility] Work Phone: Comment on above: Method: Oral 08-01-2006 09:03-0400 Body weight 83.01 kg Indu Culp RN [facility] Work Phone: 08-01-2006 09:03-0400 BP Diastolic 76 mm[Hg] Indu Culp RN [facility] Work Phone: Comment on above: Patient Position: Sitting; Cuff Location : Left Arm; Cuff Size: Standard 08-01-2006 09:03-0400 BP Systolic 130 mm[Hg] Indu Culp RN [facility] Work Phone: Comment on above: Patient Position: Sitting; Cuff Location : Left Arm; Cuff Size: Standard 08-01-2006 09:03-0400 BSA (Body Surface Area) 2.03 m2 Indu Culp RN [facility] Work Phone: 08-01-2006 09:03-0400 Head Circumference 0 cm Rosita Capone [facility] Work Phone: 08-01-2006 09:03-0400 Head Occipital-frontal circumference 0 cm Indu Culp RN [facility]; [facility] Work Phone: 08-01-2006 09:03-0400 Height 179.71 cm Indu Culp RN [facility] Work Phone: 08-01-2006 09:03-0400 Pulse (Heart Rate) 68 /min Indu Culp RN [facility] Work Phone: Comment on above: Pattern: Regular 08-01-2006 09:03-0400 Respiratory Rate 16 /min Indu Culp RN [facility] Work Phone: Comment on above: Pattern: Unlabored 08-01-2006 09:03-0400 Weight 83.01 kg Rosita Capone [facility] Work Phone: Encounters Encounter Date Encounter Type Care Provider Facility Start: 12-07-2024 End: 12-07-[address] Rosita Capone DO Work Phone: -Ultrasound [facility] Start: 12-07-2024 End: 12-07-[address] Rosita Capone DO -Ultrasound [facility] Work Phone: Start: 12-07-2024 End: 12-07-2024 ambulatory Rosita Capone Facility:[facility] Start: 09-28-2024 End: 09-28-2024 Patient encounter procedure Jt Junior MD Work Phone: Hematology/Oncology Start: 09-28-2024 End: 09-28-2024 ambulatory Jt Junior MD Work Phone: Hematology/Oncology Comment on above: Lung nodules (Primar y Dx); Malignant neoplasm of transverse colon (HCC) Start: 09-15-2024 End: 09-16-2024 Telephone encounter Scooby Cavazos DO Work Phone: Hematology/Oncology Comment on above: Appointment Start: 09-15-2024 End: 09-15-2024 ambulatory CELIA CASTILLO MD Facility:A Start: 09-15-2024 End: 09-15-2024 Patient encounter [facility] [employer] Start: 08-26-2024 End: 09-01-2024 Evaluation and management of inpatient CELIA CASTILLO MD [facility] [employer] Start: 08-25-2024 ambulatory Rosita Capone Facilit y:[facility] Start: 08-20-2024 End: 08-20-[address] ROSITA CAPONE DO Facility:[facility] Start: 08-14-2024 Encounter for preprocedural cardiovascular examination Rositadave Capone [facility] Start: 08-05-2024 End: 08-05-2024 Admission to establishment CELIA CASTILLO MD [facility] [employer] Start: 08-05-2024 End: 08-05-2024 ambulatory CELIA CASTILLO MD Facility:A Start: 08-05-2024 End: 08-05-2024 ambulatory CATHIE SALAMANCA Facility:[facility] Start: 08-03-2024 End: 08-07-2024 Telephone encounter Cathie Salamanca Work Phone: Hematology/Oncology Comment on above: Patient Update Start: 07-29-2024 End: 07-29-2024 ambulatory CELIA CASTILLO MD [facility] Start: 07-29-2024 End: 07-29-2024 Patient encounter procedure CELIA CASTILLO MD [facility] Start: 07-21-2024 ambulatory CELIA CASTILLO MD Facilit y:A Start: 07-21-2024 End: 07-21-2024 ambulatory CELIA CASTILLO MD Facility:A Start: 07-21-2024 End: 07-21-2024 Patient encounter procedure CELIA CASTILLO MD [facility] Start: 07-15-2024 Non-patient / Non-visit Dr. Uri nixon MD -[facility] Start: 07-15-2024 End: 07-15-[address] Rosita Capone DO Work Phone: [facility] Work Phone: Start: 07-15-2024 End: 07-15-2024 Patient encounter procedure Flvaia Jacome CLINICAL REVIEWER-C -Cardiovascular Services Work Phone: Start: 07-15-2024 End: 07-15-2024 ambulatory Flavia Jacome Facility:[facility] Start: 07-14-2024 End: 07-14-2024 Telephone encounter Cathie Salamanca Work Phone: Hematology/Oncology Comment on above: Patient Question Start: 06-16-2024 End: 06-16-[address] Rosita Capone DO Work Phone: [facility] Work Phone: Start: 06-16-2024 End: 06-16-2024 [facility] Start: 06-16-2024 End: 06-16-2024 ambulatory Amanda [place] Facility:[facility] Start: 06-05-2024 End: 06-05-2024 ambulatory Treatment Rm 14 Ajit [facility] [employer] Work Phone: Hematology/Oncology Comment on above: Iron deficiency anem ia secondary to inadequate dietary iron intake (Primary Dx) Start: 06-03-2024 End: 06-03-2024 ambulatory Treatment Rm 15 Ajit [facility] [employer] Work Phone: Hematology/Oncology Comment on above: Iron deficiency anem ia secondary to inadequate dietary iron intake (Primary Dx) Start: 06-02-2024 End: 06-02-2024 Telephone encounter Charlotte FRANCES Hematology/Oncology Comment on above: Social Work Services Start: 06-01-2024 End: 06-01-2024 ambulatory Treatment Rm 15 Ajit [facility] [employer] Work Phone: Hematology/Oncology Comment on above: Iron deficiency anem ia secondary to inadequate dietary iron intake (Primary Dx) Start: 05-28-2024 End: 05-28-2024 ambulatory Treatment Rm 15 Ajit [facility] [employer] Work Phone: Hematology/Oncology Comment on above: Iron deficiency anem ia secondary to inadequate dietary iron intake (Primary Dx) Start: 05-26-2024 End: 05-26-2024 ambulatory Treatment Rm 14 Ajit [facility] [employer] Work Phone: Hematology/Oncology Comment on above: Iron deficiency anem ia secondary to inadequate dietary iron intake (Primary Dx) Start: 05-25-2024 End: 05-25-2024 Orders Only Cathie Salamanca Work Phone: Hematology/Oncology Comment on above: Iron deficiency anem ia, unspecified iron deficiency anemia type (Primary Dx) Start: 05-22-2024 End: 07-14-2024 ambulatory Cathie Salamanca Work Phone: Hematology/Oncology Comment on above: Iron deficiency anem ia secondary to inadequate dietary iron intake (Primary Dx) Start: 05-22-2024 End: 05-22-2024 Patient encounter procedure Cathie Salamanca Work Phone: Hematology/Oncology Start: 04-30-2024 End: 04-30-[address] Mauricio Montgomery MD -[facility] Start: 04-30-2024 End: 04-30-2024 ambulatory Mauricio Montgomery Facility:[facility] Start: 06-13-2023 End: 06-13-[address] Rosita Capone Work Phone: [facility] Work Phone: Start: 06-13-2023 End: 06-13-[address] Rosita Capone Work Phone: [facility]-Laboratory Work Phone: Start: 03-18-2023 End: 03-18-[address] Rosita Capone Work Phone: [facility] Work Phone: Start: 02-27-2023 End: 02-27-[address] Rosita Capone Work Phone: [facility] Work Phone: Start: 02-13-2023 Non-patient / Non-visit Dr. Sina Capone Work Phone: [facility] Start: 02-13-2023 End: 02-13-2023 Admission to same day surgery center Dr. Rosita Capone Work Phone: [facility]Surgical Day Care Start: 02-13-2023 End: 02-13-[address] Rosita Capone Work Phone: [facility] Work Phone: Start: 01-21-2023 End: 01-21-[address] Rosita Capone Work Phone: [facility] Work Phone: Start: 01-14-2023 End: 01-21-2023 Office outpatient visit 15 minutes Rosita Capone DO Work Phone: [facility] Start: 10-17-2022 End: 10-17-[address] Rosita Capone Work Phone: [facility] Work Phone: Start: 10-05-2022 End: 10-05-2022 Office outpatient visit 15 minutes Rosita Capone DO Work Phone: [facility] Start: 09-03-2022 End: 09-03-2022 Phone Encounter Rosita Capone DO Work Phone: [facility] Start: 07-17-2022 End: 07-17-[address] Rosita Capone Work Phone: [facility] Work Phone: Start: 07-17-2022 End: 07-17-[address] Rosita Capone Work Phone: [facility]-Laboratory, Specimen Start: 07-17-2022 Review Rosita delcid DO Work Phone: [facility] Start: 07-16-2022 End: 07-16-[address] Rosita Capone Work Phone: [facility] Start: 07-16-2022 End: 07-16-2022 Office outpatient visit 25 minutes Rosita Capone DO Work Phone: [facility] Start: 06-15-2022 ambulatory Rosita Capone DO [facility] Start: 06-08-2022 End: 06-08-2022 Patient encounter procedure Rosita Capone DO Work Phone: [facility] Start: 05-29-2022 End: 05-29-2022 ambulatory [facility] Work Phone: Start: 05-29-2022 End: 05-29-2022 Patient encounter procedure [facility]-Laboratory Start: 12-19-2021 End: 12-19-2021 Emergency department patient visit [facility]-Emergency Department Start: 06-07-2021 End: 06-07-2021 Patient encounter procedure Rosita Liborio DO Work Phone: [facility]; [facility] Work Phone: Start: 06-07-2021 End: 06-07-2021 Periodic preventive med est patient 65yrs& older Rosita Hensleyon DO Work Phone: [facility] Start: 01-23-2021 End: 01-23-2021 Office outpatient visit 5 minutes Rosita Liborio DO Work Phone: [facility] Start: 12-13-2020 End: 12-13-2020 Office outpatient visit 10 minutes Rosita Liborio DO Work Phone: [facility] Start: 12-12-2020 End: 12-12-2020 Office outpatient visit 15 minutes Rosita Liborio DO Work Phone: [facility] Start: 03-09-2020 End: 03-09-2020 Patient encounter procedure Rosita Liborio DO Work Phone: [facility] Start: 03-09-2020 End: 03-09-2020 Periodic preventive med est patient 65yrs& older Rosita Liborio [facility] Start: 03-09-2020 Review Rosita Hensleyon [facility] Start: 02-22-2020 End: 02-22-2020 Office outpatient visit 5 minutes Rosita Capone [facility] Start: 02-18-2020 End: 02-18-2020 Office outpatient visit 10 minutes Rosita Capone [facility] Start: 03-06-2019 End: 03-06-2019 Office outpatient visit 10 minutes Rosita Liborio [facility] Start: 11-20-2018 End: 11-20-2018 Office outpatient visit 10 minutes Rositadave Capone [facility] Start: 09-24-2018 End: 09-24-2018 Office outpatient visit 15 minutes Rosita Capone [facility] Start: 07-09-2018 End: 07-10-2018 Office outpatient visit 15 minutes Rositadave Capone [facility] Start: 07-09-2018 Review Rosita Hensleyon [facility] Start: 02-07-2018 End: 02-07-2018 Phone Encounter Rosita Talbot [employer] [facility] Start: 12-16-2017 End: 12-16-2017 Office outpatient visit 10 minutes Rosita Capone [facility] Start: 12-13-2017 End: 12-13-2017 Patient encounter procedure Rosita Capone DO Work Phone: [facility] Start: 12-13-2017 End: 12-13-2017 Periodic preventive med est patient 65yrs& older Rosita Talbot [facility] Start: 11-18-2017 End: 11-18-2017 Office outpatient visit 25 minutes Rosita Talbot [facility] Start: 05-22-2017 End: 05-22-2017 Office outpatient visit 15 minutes Rosita Capone [facility] Start: 04-16-2017 End: 04-16-2017 Annotation/Addendum Rosita Talbot [employer] [facility] Start: 03-13-2017 End: 03-13-2017 Office outpatient visit 15 minutes Rosita Capone [facility] Start: 03-01-2017 End: 03-01-2017 Office outpatient visit 15 minutes Rosita Capone [facility] Start: 02-27-2017 End: 02-27-2017 Office outpatient visit 15 minutes Rosita Talbot [facility] Start: 04-27-2016 End: 04-27-2016 Office outpatient visit 15 minutes Rosita Talbot [facility] Start: 01-26-2016 End: 01-26-2016 Patient encounter Rosita Liborio [facility] [employer] [facility] Start: 01-12-2016 End: 01-12-2016 Patient encounter procedure Rosita Capone DO Work Phone: [facility] Start: 01-12-2016 End: 01-12-2016 Periodic preventive med est patient 40-64yrs Rosita Talbot [facility] Start: 05-16-2015 End: 05-16-2015 Office outpatient visit 15 minutes Rosita Talbot [facility] Start: 04-04-2015 End: 04-04-2015 Office outpatient visit 25 minutes Rosita Talbot [facility] Start: 03-23-2015 End: 03-23-2015 Office outpatient visit 15 minutes Rosita Talbot [facility] Start: 03-21-2015 End: 03-21-2015 Lab Order Rosita Talbot [employer] [facility] Start: 03-14-2015 End: 03-14-2015 Office outpatient visit 25 minutes Rosita Capone [facility] Start: 11-15-2014 End: 11-15-2014 Office outpatient visit 15 minutes Rositadave Capone [facility] Start: 06-15-2014 End: 06-15-2014 Office outpatient visit 15 minutes Rosita Capone [facility] Start: 03-01-2014 End: 03-01-2014 Patient encounter procedure Rosita Capone DO Work Phone: [facility] Start: 03-01-2014 End: 03-01-2014 Periodic preventive med est patient 40-64yrs Rosita Hensleyon [facility] Start: 05-06-2012 End: 05-06-2012 Office outpatient visit 15 minutes Rosita Liborio [facility] Start: 06-29-2011 End: 06-29-2011 Office outpatient visit 15 minutes Rosita Capone [facility] Start: 07-07-2010 End: 07-07-2010 Patient encounter Rositadave Hensleyon [facility] Start: 04-12-2010 End: 04-12-2010 Patient encounter Rosita Capone [facility] Start: 04-04-2009 End: 04-04-2009 Patient encounter Rosita Capone [facility] Start: 01-10-2009 End: 01-10-2009 Office outpatient visit 10 minutes Rositadave Hensleyon [facility] Start: 12-25-2007 End: 12-25-2007 Office outpatient visit 10 minutes Rositadave Capone [facility] Start: 12-22-2007 End: 12-22-2007 Historical Summary Rosita Capone [facility] Start: 11-27-2007 End: 11-27-2007 Patient encounter Rosita Capone [facility] Start: 09-18-2007 End: 09-18-2007 Patient encounter Rosita Capone [facility] Start: 08-21-2007 End: 08-21-2007 Patient encounter Rosita Capone [facility] Start: 08-01-2006 End: 08-01-2006 Office outpatient visit 25 minutes Rositadave Hensleyon [facility] Start: 08-01-2006 End: 08-01-2006 Patient encounter status Rosita Capone DO Work Phone: [facility] Start: 07-30-2006 End: 07-30-2006 Historical Summary Rosita Capone [facility] Patient encounter procedure Rach Pineda CLINICAL DIRECTOR [facility]; [facility] Work Phone: Patient encounter procedure Rosita Capone DO Work Phone: [facility]; [facility] Work Phone: Patient encounter procedure Nubia Navas [facility]; [facility] Work Phone: Patient encounter procedure Max Trinh CLINICAL DIRECTOR [facility]; [facility] Work Phone: Patient encounter procedure NADEGE Lara CLINICAL DIRECTOR [facility]; [facility] Work Phone: End: 08-19-2008 Physical examination Karena Joycelyn [facility]; [facility] Work Phone: 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 Rosita Capone DO Work Phone: Start: 08-26-2024 Excision of colon CELIA CASTILLO MD Comment on above: Laparoscopic extended right colectomy Laparoscopic mobilization of splenic flexure ICG angiography Start: 07-09-2024 Colonoscopy CELIA CASTILLO MD Start: 04-30-2024 X-ray of chest, PA and lateral views Dr. Rosita Capone DO Work Phone: Start: 02-13-[address] Rosita Hensley on Work Phone: Start: 02-13-2023 Hernia repair CELIA CASTILLO MD Comment on above: umbilical Start: 01-21-2023 End: 01-22-2023 Surgery Visit Report Procedure Note: See Note; NOTES: [facility] [address] [place], [place] [address]. [address] [place] [address] OFFICE VISIT Date of Service: 01/21/23 MR#: [id number] Acct: [id number] Name: RADHA MENG Rep #: [id number] : 1950 Provider: Dr. 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 Is patient in pain?: No Allergies amoxicillin Allergy (Verified 01/21/23 09:14) Rash Medications antiarthritic combination no.2 900 mg tablet (glucosamine-chondroitin) 900 mg PO DAILY 11/12/14 [History Confirmed 01/21/23] aspirin 81 mg chewable tablet 81 mg PO DAILY@0800 01/24/15 [History Confirmed 01/21/23] multivitamin with folic acid 400 mcg tablet (Thera) 1 tab PO DAILY 01/24/15 [History Confirmed 01/21/23] finasteride 5 mg tablet (Proscar) 5 mg PO BID 12/15/17 [History Confirmed 01/21/23] tamsulosin 0.4 mg capsule (Flomax) 0.4 mg PO DAILY 12/15/17 [History Confirmed 01/21/23] doxycycline hyclate 100 mg capsule mg PO 01/21/23 [History Confirmed 01/21/23] PFSH Medical History (Updated 01/22/23 @ 10:[address] Marya Russ MD) BPH (benign prostatic hyperplasia) C. difficile colitis Infected hand Syncope Family History Mother Arthritis Mother Heart disease Father Heart disease Mother Seizures Mother CVA (cerebral vascular accident) Social History household members: spouse current occupational status: employed Smoking Status: Never smoker HPI HPI HPI: 72-year-old male presents for update H P for umbilical hernia repair. Patient was previously seen in office in September. Patient still denies any pain at the site and there may be about 3 years. 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 ROS General General: No weight change, appetite, fatigue, colon cancer or breast cancer HEENT HEENT: No difficulty swallowing, eye injury, eye surgery, swollen glands or hoarseness Endo Endocrine: No thyroid disease, diabetes mellitus, thyroid cancer, Hair loss, heat intolerance or cold intolerance Skin Skin: No rash or changing moles Musc Musculoskeletal: Yes arthritis; No back problems, rheumatoid arthritis, gout or joint pain Cardio Cardiovascular: No murmur, pacemaker, heart disease, atrial fibrillation, high blood pressure, heart attack, heart stent, palpitations, shortness of breat with exertion or chest pain Psych Psychiatric: No depression, anxiety or hearing voices Resp Respiratory: No shortness of breath, No sleep apnea, No cough, No COPD, No asthma, No emphysema and No wheezing Gastro Gastrointestinal: No abdominal pain, No nausea or vomiting, No diarrhea, No constipation, No blood in stool, No acid reflux, Yes hemorrhoids, No ulcers, No gallbladder problem and No black,tarry stools Ajit Hematologic: No blood thinners, No blood disorders, No bleeding, No anemia and No blood clots Neuro Neurologic: No numbness and No tingling Exam Const General: cooperative, healthy appearing, comfortable and no acute distress HENMT Head: normocephalic and atraumatic Neck Neck: supple Resp Effort Inspection: normal respiratory effort Cardio Rate: regular rate GI Inspection: non-distended Palpation: soft, hernia umbilical (Partially reducible, soft) and nontender Skin General: no rashes or lesions noted Neuro General: CN's II-XI intact bilaterally Extrem General: normal to inspection Psych Mental Status: mental status grossly normal Attitude: cooperative Assessment and Plan Assessment and Plan (1) Incarcerated umbilical hernia: Status: Acute Plan Plan to do an umbilical hernia repair with mesh. Reviewed the procedure with the patient including the risks, including but not limited to infection, bleeding, injury to the small bowel, and recurrence. All questions were answered. Marya Russ M.D. Pager: [phone] [facility] [address] [place], [place] [address], [address] [place] [address] Office: [phone] Coding Level of Care Code Off vis,est,level 3 Diagnoses Incarcerated umbilical hernia K42.0 01/22/23 1022 <Electronically signed by Marya Russ MD> Date Marya Russ MD Cosigner Signature: Date (if applicable) CC: Rosita Capone DO Work Phone: Start: 10-17-2022 End: 10-18-2022 Surgery Visit Report Procedure Note: See Note; NOTES: [facility] [address] [place] [address]. [address] [place] [address] OFFICE VISIT Date of Service: 10/17/22 MR#: [id number] Acct: [id number] Name: RADHA MENG Rep #: [id number] : 1950 Provider: Dr. Marya muniz MD Age/Sex: 72/M Location: [facility] Status: Signed Intake Vital Signs 12/19/21 11:45 10/17/22 08:49 Height 5 ft 10 in 5 ft 10 in Weight: 185 lb 183 lb 2 oz BMI 26.5 26.2 BP 160/108 H 142/90 H Blood Pressure Location Rt brachial Position Sitting Respiration 18 18 Pulse 98 69 Pulse Source Monitor Temp 97 F L 97.2 F L Temp Source Temporal Tympanic Pulse Oximetry (%) 90 96 Intake Visit Reasons: Umbilical Hernia Chief Complaint: umbilical hernia Allergies amoxicillin Allergy (Verified 10/17/22 08:53) Rash Medications antiarthritic combination no.2 900 mg tablet (glucosamine-chondroitin) 900 mg PO DAILY 11/12/14 [History Confirmed 10/17/22] aspirin 81 mg chewable tablet 81 mg PO DAILY@0800 01/24/15 [History Confirmed 10/17/22] multivitamin with folic acid 400 mcg tablet (Thera) 1 tab PO DAILY 01/24/15 [History Confirmed 10/17/22] finasteride 5 mg tablet (Proscar) 5 mg PO BID 12/15/17 [History Confirmed 10/17/22] tamsulosin 0.4 mg capsule (Flomax) 0.4 mg PO DAILY 12/15/17 [History Confirmed 10/17/22] PFSH Medical History BPH (benign prostatic hyperplasia) C. difficile colitis Family History (Updated 10/17/22 @ 08:49 by Aundrea Awan) Mother Arthritis Mother Heart disease Father Heart disease Mother Seizures Mother CVA (cerebral vascular accident) Social History household members: spouse current occupational status: employed Smoking Status: Never smoker HPI HPI HPI: 72-year-old male presents due to umbilical hernia. Patient states that his and his PCP told him he had it. Patient denies any pain at the site. Patient's states its been there for about 3 years. 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 ROS General General: No weight change, appetite, fatigue, colon cancer or breast cancer HEENT HEENT: No difficulty swallowing, eye injury, eye surgery, swollen glands or hoarseness Endo Endocrine: No thyroid disease, diabetes mellitus, thyroid cancer, Hair loss, heat intolerance or cold intolerance Skin Skin: No rash or changing moles Musc Musculoskeletal: Yes arthritis; No back problems, rheumatoid arthritis, gout or joint pain Cardio Cardiovascular: No murmur, pacemaker, heart disease, atrial fibrillation, high blood pressure, heart attack, heart stent, palpitations, shortness of breat with exertion or chest pain Psych Psychiatric: No depression, anxiety or hearing voices Resp Respiratory: No shortness of breath, No sleep apnea, No cough, No COPD, No asthma, No emphysema and No wheezing Gastro Gastrointestinal: No abdominal pain, No nausea or vomiting, No diarrhea, No constipation, No blood in stool, No acid reflux, Yes hemorrhoids, No ulcers, No gallbladder problem and No black,tarry stools Ajit Hematologic: No blood thinners, No blood disorders, No bleeding, No anemia and No blood clots Neuro Neurologic: No numbness and No tingling Exam Const General: cooperative, healthy appearing, comfortable and no acute distress HENMT Head: normocephalic and atraumatic Neck Neck: supple Resp Effort Inspection: normal respiratory effort Cardio Rate: regular rate GI Inspection: non-distended Palpation: soft, hernia umbilical (Partially reducible, soft) and nontender Skin General: no rashes or lesions noted Neuro General: CN's II-XI intact bilaterally Extrem General: normal to inspection Psych Mental Status: mental status grossly normal Attitude: cooperative Assessment and Plan Assessment and Plan (1) Umbilical hernia: Status: Acute Plan Patient not been having any pain at the site discussed that if he does have more pain may want it done sooner as currently he is thinking maybe late January or March as I would work better with his job. Plan to do an umbilical hernia repair with mesh. Reviewed the procedure with the patient including the risks, including but not limited to infection, bleeding, injury to the small bowel, and recurrence. All questions were answered. Cautioned the patient that if he has N/V, ABD distention, increased umbilical pain or changes of the skin over the hernia he needs to go to the ER. Marya Russ M.D. Pager: [phone] [facility] [address] [place] [address], [address] [place] [address] Office: [phone] Coding Level of Care Code Off vis,new,level 3 Diagnoses Umbilical hernia K42.9 10/18/22 0912 <Electronically signed by Marya Russ MD> Date Marya Russ MD Cosigner Signature: Date (if applicable) CC: Dr. Rosita Capone, DO Rosita Capone DO Work Phone: Start: 07-16-2022 End: 07-16-2022 HIP, UNI W/ Pelvis 2-3 Views Procedure Note: See Note; NOTES: [facility] [address] [place] [address] HIP, UNI W/ Pelvis 2-3 Views MR#: [id number] Acct: [id number] Name: RADHA MENG Rep #: [id number] : 1950 M 72 From: Tera Loco MD PCP: Dr. Rosita Capone DO Status: DEP AMB Study: HIP, UNI W/ Pelvis 2-3 Views Date of Exam: Exam# [id number] Ordering Dr: Rosita Capone DO STUDY: X-RAY - PELVIS AND RIGHT HIP REASON FOR EXAM: Male, 72 years old. Pain. TECHNIQUE: 3 views of the pelvis and hip. COMPARISON: None. FINDINGS: There is a non-specific bowel gas pattern. Normal visualized soft tissue structures. Osteopenia. Mild arthrosis of both sacroiliac joints. Normal bilateral superior and inferior pubic rami. Mild arthrosis of the symphysis pubis. Normal bilateral ischial tuberosities. Lumbosacral spondylosis with levoscoliosis. Mild arthrosis of both hips. RAD/HIP, UNI W/ Pelvis 2-3 Views IMPRESSION: Osteopenia with osteoarthrosis of the sacroiliac joints, symphysis pubis and both hips. Incidentally noted is lower lumbosacral spondylosis with levoscoliosis. Electronically Signed: Tera Loco, at 10:49 EDT , CC: Dr. Rosita Capone DO Psych Coordinator: Signed Rosita Capone DO Work Phone: Start: 07-16-2022 Plain x-ray of pelvis and lower extremity Dr. Rosita Capone Work Phone: Start: 12-19-2021 End: 12-29-2021 Emergency Department Summary Procedure Note: See Note; NOTES: [facility] Medical Records Department [address] [place] [address] Emergency Department Summary 12/19/21 MR#: [id number] Acct: [id number] Name: RADHA MENG Rep #: [id number] : 1950 71 From: Blu Rene DO PCP: Dr. Rosita Capone DO Status:DEP ER Location: ED HPI History of Present Illness Chief Complaint: Laceration Narrative Narrative: Very pleasant 71-year-old male was working at the [employer] in the [place] when he sustained a crush injury to the left thumb when the owen of a car came down.. He notes 2 lacerations. Bleeding was controlled at the scene. He notes some swelling at the interphalangeal joint. Last tetanus was in 2014. He was not wearing any gloves. Tetanus Immunization: 5-10 years [facility] Medical History (Updated 12/19/21 @ 13:[address] Blu Rene DO) BPH (benign prostatic hyperplasia) C. difficile colitis Home Medications antiarthritic combination no.2 900 mg tablet (glucosamine-chondroitin) 900 mg PO DAILY 11/12/14 [History Last Taken 03/05/15] aspirin 81 mg chewable tablet 81 mg PO DAILY@0800 01/24/15 [History Last Taken 03/05/15] multivitamin with folic acid 400 mcg tablet (Thera) 1 tab PO DAILY 01/24/15 [History Last Taken 03/05/15 08:00] finasteride 5 mg tablet (Proscar) 5 mg PO BID 12/15/17 [History Last Taken Unknown] tamsulosin 0.4 mg capsule (Flomax) 0.4 mg PO DAILY 12/15/17 [History Last Taken Unknown] Allergy/AdvReac Type Severity Reaction Status Date / Time amoxicillin Allergy Rash Verified 12/19/21 11:48 Social History (Updated 12/19/21 @ 12:[address] Blu Rene DO) household members: spouse current occupational status: employed Smoking Status: Never smoker ROS ROS ED Constitutional Constitutional ED: Denies chills or weight loss Eyes Eyes: Denies change in vision or diplopia ENT ENT ED: Denies ear pain, rhinorrhea or sore throat Cardiovascular Cardiovascular: Denies chest pain, orthopnea, palpitations or racing heartbeat Respiratory/Chest Respiratory/Chest: Denies cough, dyspnea or orthopnea Gastrointestinal Gastrointestinal: Denies abdominal pain, diarrhea, nausea or vomiting Genitourinary Genitourinary ED: Denies dysuria, hematuria or urinary frequency Musculoskeletal Musculoskeletal: Reports other Details: See HPI ; Denies arthralgias or myalgias Integumentary Denies abscess or rash Neurologic Neurologic: Denies headache(s) or weakness Psychiatric Psychiatric: Denies anxiety, depression, suicidal ideation or suicidal thoughts Endocrine Endocrinology: Denies polydipsia, polyphagia or polyuria Allergic/Immunologic Allergic/Immunologic ED: Denies mouth swelling, tongue swelling or urticaria EXAM Physical Exam Const Vital Signs: 12/19/21 11:45 Temperature 97 F L Temperature Source Temporal Pulse Rate 98 Respiratory Rate 18 Blood Pressure 160/108 H Blood Pressure Mean 125 Pulse Ox 90 Oxygen Delivery Method Room Air Positive well nourished and well developed General Appearance ED: well developed HEENT Reports normocephalic, head/scalp atraumatic and moist mucous membranes Eyes PERRL and EOMs intact bilaterally Neck no lymphadenopathy, supple and no JVD Resp normal respiratory effort and clear to auscultation bilaterally Cardio regular rate, regular rhythm and no murmurs GI normal to inspection, nondistended, normoactive bowel sounds and non-tender Palpation: soft Back/Spine no CVA tenderness and normal ROM Extremity Extremity Narrative: There is a 2.5 cm irregular laceration over the lateral aspect of the left thumb. There is swelling at the interphalangeal joint but he is able to flex and extend. There is a 1 cm laceration in the webspace between the left thumb and index finger. Neurovascular intact. There is also a superficial abrasion of the left palm. General Extremety ED: Negative for edema General Extremity: Negative for edema Neuro oriented x3 and CN's II-XII intact bilaterally Sensorium / Orientation: alert Motor Exam: strength 5/5 throughout Psych mental status grossly normal Mood Affect: Negative for depressed or tearful Skin no rashes or lesions noted and no wounds MDM MDM MDM Narrative Medical decision making narrative: My interpretation of the plain films of the thumb is no acute fracture. Wounds were locally anesthetized using 1% lidocaine. There were washed with Shur-Clens and explored. Using 5-0 Ethilon sutures the wounds were closed. Wounds will be dressed by nursing. Follow-up 7 days for suture removal. Discharge Plan Triage Chief Complaint: Laceration ED Provider: Blu Rene Dx/Rx/DC Orders Clinical Impression: Crush injury to finger, Laceration of finger, Abrasion hand Instructions: ED Crush Injury, Hand, ED Laceration, Hand: All Closures Prescriptions: No Action antiarthritic combination no.2 [glucosamine-chondroitin] 900 MG tablet 900 mg PO DAILY Label Comments: arthritis aspirin 81 MG Tab.Chew 81 mg PO DAILY@0800 Label Comments: blood thinner multivitamin with folic acid [Thera] 1 TABLET tablet 1 tab PO DAILY Label Comments: Vitamin tamsulosin [Flomax] 0.4 MG capsule 0.4 mg PO DAILY finasteride [Proscar] 5 MG tablet 5 mg PO BID Primary Care Provider: Rosita Capone Referrals: Rosita Capone DO [Primary Care Provider] - 7 Days for suture removal Disposition Disposition: Home, Self Care What to do if you have Problems For any increased pain, shortness of breath, bleeding, nausea or vomiting, chest pain, or any unexpected problems, contact your Primary Care Provider. Call [facility] ([phone]) or report to the closest Emergency Room. Call 911 if necessary. 12/19/21 1610 <Electronically signed by Blu Rene DO> Cosigner Signature (if applicable): CC: Dr. Rosita Capone DO Signed Rosita Capone DO Work Phone: Start: 12-19-2021 Diagnostic radiography of finger Start: 12-19-2021 End: 12-19-2021 Finger(s) Min 2 Views Procedure Note: See Note; NOTES: [facility] Services [address] [place] [address] Finger(s) Min 2 Views MR#: [id number] Acct: [id number] Name: RADHA MENG Rep #: [id number] : 1950 M 71 From: Johnathon Mora MD PCP: Dr. Rosita Capone DO Status: REG ER Study: Finger(s) Min 2 Views Date of Exam: 12/19/21 Exam# [id number] Ordering Dr: Blu Rene DO INDICATION: trauma EXAMINATION/TECHNIQUE: X-RAY - RIGHT HAND XR Fingers Min 2 Views 3 VIEWS COMPARISON: None. FINDINGS: SOFT TISSUES: Soft tissue views tissue prominence visualized surrounding the ankle, subcutaneous soft tissue densities are visualized most prominent along the posterior and lateral aspect of the distal interphalangeal joint. BONES/JOINTS: No acute fracture or subluxation.. Unremarkable alignment. Preservation of the joint space. Degenerative bone changes seen.. No sclerotic or destructive changes observed. RAD/Finger(s) Min 2 Views IMPRESSION: Soft tissue prominence, no underlying osseous abnormality is seen. Electronically Signed: Johnathon Mora MD at 13:10 EDT Reading Location ID and State: [facility] / [place] Tel , Service support , CC: Dr. Blu Rene DO; Dr. Rosita Capone DO Psych Coordinator: Signed Rosita Capone DO Work Phone: Start: 03-27-2019 End: 03-27-2019 Brain W/WO Contrast Comments: See Note; NOTES: [facility] [address] [place] [address] Brain W/WO Contrast MR#: [id number] Acct: [id number] Name: RADHA MENG Rep #: [id number] : 1950 68 From: Pato Hanna MD PCP: Rosita Capone DO Status: REG CLI Study: Brain W/WO Contrast Date of Exam: 03/27/19 Exam# [id number] Ordering Dr: Ellis Zheng MD STUDY: MRI BRAIN WITH AND WITHOUT CONTRAST (ATTENTION INTERNAL AUDITORY CANALS - I.A.C.''s) REASON FOR EXAM: Male, 68 years old. LEFT TINNITUS HEARING LOSS -- no pain TECHNIQUE: Standardized multiplanar fat and water weighted pulse sequences were obtained. dotarem 17 ml iv was administered for the contrast portion of the examination. COMPARISON: None. FINDINGS: Normal bilateral temporal bones. Normal bilateral internal auditory canals. There is no demonstrated intracanalicular or cisternal vestibular schwannoma ("acoustic neuroma"). There is no enhancement of the bilateral VIIth or VIIIth cranial nerves. Normal bilateral cochlea, vestibules and semicircular canals. Normal size of the ventricles and extra-axial spaces for the patient''s age. Normal white matter tracts of the supratentorial brain. There is no evidence for recent intracranial ischemia or other cause of cytotoxic edema on diffusion weighted imaging (DWI). Normal bilateral basal ganglia. Normal thalami. Normal flow voids within the major intracranial circulation suggesting patency by spin echo criteria. Normal venous enhancement. There is no enhancing intra-axial or extra-axial abnormality. There is no extra-axial fluid accumulation. Normal sella turcica, pituitary gland, infundibular stalk, optic chiasm and hypothalamus. Normal tectal plate and pineal gland. Normal midbrain, abhijit and medulla. Normal cerebellum. Normal basal cisterns. No demonstrated orbital abnormality, within the constraints of a routine brain study. Normal visualized paranasal sinuses. Normal calvarium and skull base. Normal visualized soft tissue structures. Normal visualized upper cervical spine. MRI/Brain W/WO Contrast IMPRESSION: Normal unenhanced and enhanced MRI of the bilateral internal auditory canals (I.A.C''s). Electronically Signed: Pato Hanna MD at 14:50 EST Tel , Service support , CC: Sherman Zheng MD; Rosita Capone DO Psych Coordinator: Signed Sherman Zheng Work Phone: Start: 12-16-2017 End: 12-16-2017 Emergency Department Summary Comments: See Note; NOTES: [facility] Medical Records Department [address] [place] [address] Emergency Department Summary 12/15/17 2341 MR#: [id number] Acct: [id number] Name: RADHA MENG Rep #: [id number] : 1950 67 From: Tori Saunders MD PCP: Rosita Capone DO Status: DEP ER - ER Visit Summary Date of Service: 12/15/17 Chief Complaint: Redness at injection site History of Present Illness: The patient is a 67 M who got a pneumonia shot in his left arm on the . Patient noted redness and warmth at the site tonight. He had subjective fever yesterday as if he might be getting a cold. Redness was not noticed until this evening. Patient has a history of BPH and C. difficile. Physical Examination: Vital signs unremarkable. Temperature here is 99.2. Patient sitting upright in bed no acute distress. He is nontoxic appearing. Head neck examination is unremarkable. Heart is regular rate and rhythm. Lungs sounds are clear. Left upper extremity examination was a 7 x 12 cm area of erythema to the posterior left upper arm. No lymphangitic streaking is noted. No evidence of abscess. Test Results: [] Emergency Department Course and Treatment: My clinical suspicion is that this is localized reaction to the injection as opposed to acute infection. Patient does have history of C. difficile and I am reluctant to cover with antibiotics and my clinical suspicion is low. Hydrocortisone cream will be applied topically in the areas outlined. Patient will follow with his primary care physician tomorrow for a wound check. I spoke with Dr. roberto, on-call for Dr. Capone. Treatment Plan: [] Disposition: Discharge Impression: Localized reaction to injection This note was generated with [employer] dictation software. It may contain incorrect words, spelling, and punctuation that were not noted in review of the chart prior to signing ED Disposition - Plan for ED Patient: Disposition: Home or Assisted Living Chief Complaint: Allergic Reaction Instructions: ED Allergic Reaction Local Other Referrals: Rosita Capone DO [Primary Care Provider] - 1 Day What to do if you have Problems For any increased pain, shortness of breath, bleeding, nausea or vomiting, chest pain, or any unexpected problems, contact your Primary Care Provider. Call [facility] ([phone]) or report to the closest Emergency Room. Call 911 if necessary. 12/16/17 2599 <Electronically signed by Tori Saunders MD> Date Tori Saunders MD Cosigner Signature (If Indicated): Date CC: Rosita Hill Start: 12-15-2017 End: 12-15-2017 Discharge Instruction Comments: See Note; NOTES: [facility] Medical Records Department [address] [facility] [place] [address] Discharge Instruction 12/15/172341 MR#: [id number] Acct: [id number] Name: ULIYVESRADHA Rep #: [id number] : 1950 67 From: Tori Saunders MD PCP: Rosita Capone DO Status: PRE ER ED Disposition - Plan for ED Patient: Disposition: Home or Assisted Living Chief Complaint: Allergic Reaction Instructions: ED Allergic Reaction Local Other Referrals: Rosita Capone DO [Primary Care Provider] - 1 Day What to do if you have Problems For any increased pain, shortness of breath, bleeding, nausea or vomiting, chest pain, or any unexpected problems, contact your Primary Care Provider. Call [facility] ([phone]) or report to the closest Emergency Room. Call 911 if necessary. 12/15/17 234 <Electronically signed by Tori Saunders MD> Date Tori Saunders MD Cosigner Signature (If Indicated): Date CC: Rosita Hill Start: 04-05-2017 End: 04-05-2017 PT D/C Summary (1) Comments: See Note; NOTES: [facility] [address] [place] [address] Fax REHABILITATION SERVICES DISCHARGE SUMMARY MR#: [id number] Acct: [id number] Name: RADHA MENG Rep #: [id number] : 1950 67 From: Heladio Gagnon PT, Cert. T, OCS Referring Dr.: Alicia Cox CLINICAL REVIEWER Status: REG RCR Insurance: MEDICARE PART A B [facility] HP - PT D/C Summary It has been my pleasure to treat RADHA MENG under orders from Alicia Cox, for the diagnosis of right knee pain for a total of 8 visit(s). Discharge Date: 04/03/17 Please see the following information for a summary of their discharge status. - Subjective Subjective: Doing good..no pain Havent ran - Pain Right Knee Pain Intensity (Out of 10): 0 - Overall Improvement % Improvement: 100 - Objective Objective/Function: POSTURE: mild foward posture. GAIT: normal amy. MMT: 5/5 hip/knee. AROM: 0-130 degrees. STAIRS: alternating no rail 12 step. -SQUATTING - Goals Goal 1:: Independant with HEP Goal Progress: Goal Met Goal 2:: Patient to decrease knee pain by 70% or greater to improve function stairs walking and running. Goal Progress: Goal Met Goal 3:: Patient increase AROM knee flexion symmtrical right to left to improve function. Goal Progress: Goal Met Goal 4:: Patient increase strength of hip 4/5 to improve function with ADL'S and squatting Goal Progress: Goal Met Goal 5:: Patient be able to perform squatting,kneeling,running and stairs with no limitations Goal Progress: Goal Met - Plan Plan: D/C TO HEP - D/C Information Discharge Comments: HEP If there are questions or concerns regarding this patient's physical therapy, please feel free to call me at [phone]. Thank you for the referral of this patient. Sincerely, Heladio Gagnon PT, <Electronically signed by Cert. TYRESE Schneider PT, OCS> 04/05/17 0828 CC: Alicia Cox NP CHERIE Signed Rosita Capone Start: 03-04-2017 End: 03-04-2017 Inital Evaluation (1) - PT Comments: See Note; NOTES: [facility] [address] [address] [place] [address] Fax REHABILITATION SERVICES INITIAL EVALUATION MR#: [id number] Acct: [id number] Name: RADHA MENG Rep #: [id number] : 1950 66 From: Cert. TYRESE Schneider PT, OCS Referring Dr.: Alicia Cox NP Status: REG RCR Insurance: MEDICARE PART A B [facility] Patient's Visit Information RADHA MENG is a 66 year old M referred to Physical Therapy by Alicia Cox with a diagnosis of right knee pain. Date of Evaluation: 03/01/17 Physical Therapist: Heladio Gagnon PT, - Visit Plan Frequency: 2x /Week Duration: 4 Weeks Plan: ROM.FLEXABLITY,PRE'S QUAD/HAMS /HIP BIKE - Subjective Subjective: This 66 y/o male presents to physical therapy with right knee pain.Patient on Saturday was running 2 miles ,he heard a pop in his right knee. Patient seen DR Juan for ortho consult.Patient had x-rays -.Intiallly,running,kneelin g,squatting,stairs made symtoms worse. Overall pain is some better. Denies parathesia/tingling.Pain doesnt affect sleeping. Pain is okay with standing and general walking and basic ADLS'. SOCIAL: . 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 HOBBIES: running - Pain Right Knee Pain Intensity (Out of 10): 1 - Objective POSTURE: mild foward posture. GAIT: normal amy. STAIRS: reciprocal alternating no rail. NEURO: intact. Proprioception: NORMAl. AROM: L-0-135 ,R -0-120 supine knee flexion. MMT: quads/hams 4/5 ,hip flexors /abd 4-/5 akle 5/5 - Special Tests R Knee Erin - Meniscus: Positive R Knee Apley - Meniscus: Negative R Knee Valgus - MCL: Negative R Knee Varus - LCL: Negative R Knee Patellar Apprehension - PFS: Negative R Knee Patellar Grind - PFS: Negative R Knee Medial Patellar Plica - Plica Syndrome: Negative Comments: + hyperflexion - Goals Goal 1:: Independant with HEP Goal Time Frame: 2-4 Weeks Goal 2:: Patient to decrease knee pain by 70% or greater to improve function stairs walking and running. Goal Time Frame: 2-4 Weeks Goal 3:: Patient increase AROM knee flexion symmtrical right to left to improve function. Goal Time Frame: 2-4 Weeks Goal 4:: Patient increase strength of hip 4/5 to improve function with ADL'S and squatting Goal Time Frame: 2-4 Weeks Goal 5:: Patient be able to perform squatting,kneeling,running and stairs with no limitations Goal Time Frame: 2-4 Weeks - Rehabilitation Potential Physical Therapy Diagnosis: This patient heard a pop in right knee possible menisus but improve ,most limited with ROM with pain impairs function thus benifit from skilled PT Rehabilitation Potential: Good - Anticipated Interventions Patient/Client Instruction: Educate patient on: Condition, Plan of Care For the Purpose of:: To decrease pain, To increase ROM, To improve muscle performance and motor function, To improve ability to perform ADL's, To increase tolerance to activity/condition/position , To improve performance and independence with ADL's, To improve ability of physical actions for home/community/work/leisure , To improve health of tissue, To decrease soft tissue restriction, To increase flexibility/ROM, To improve ability to perform tasks related to life management Therapeutic Exercise to Include: Strength training, Endurance training, Balance training, Flexibilty training, Active ROM Comment: HP/KNEE For the Purpose of:: To decrease pain, To increase ROM, To improve muscle performance and motor function, To improve performance and independence with ADL's, To improve ability of physical actions for home/community/work/leisure , To decrease soft tissue restriction, To increase flexibility/ROM, To improve ability to perform tasks related to life management IF ES: Yes Cryotherapy (ice pack, ice massage): Yes Thermo therapy (hot pack): Yes Ultrasound (thermal/non thermal): Yes For the Purpose of:: To decrease pain, To improve nutrient delivery to tissue, To increase oxygenation perfusion, To improve health of tissue, To decrease soft tissue restriction Thank you for the opportunity to evaluate your patient. For Medicare and Medicare HMO plans, please review the plan of care and approve it. It will need to be FAXED BACK to us at [phone] for Medicare purposes. Please let me know if there are questions or concerns regarding this plan of care. Physician Signature: Date: <Electronically signed by Heladio Gagnon PT, Cert. T, OCS> 03/04/17 1553 CC: Alicia Cox NP CHERIE Signed For Medicare only, by signing this I certify the plan of care. _ Physicians Signature Date Rosita Capone Start: 02-27-2017 End: 02-28-2017 Knee 4 or More Views Comments: See Note; NOTES: [facility] Imaging Services [address] [place] [address] Knee 4 or More Views MR#: [id number] Acct: [id number] Name: RADHA MENG Rep #: [id number] : 1950 M 66 From: Krishna Hartley PCP: Alicia Cox Status: REG CLI Study: Knee 4 or More Views Date of Exam: 02/27/17 Exam# [id number] Ordering Dr: Alicia Cox STUDY: X-RAY - RIGHT KNEE REASON FOR EXAM: Male, 66 years old. Dumas pop in knee while walking. Difficult to bend. TECHNIQUE: 3 view(s) of the knee. COMPARISON: None. FINDINGS: Normal visualized distal femur. Normal visualized proximal tibia and fibula. Normal proximal tibiofibular articulation. Normal medial femorotibial compartment. Normal lateral femorotibial compartment. Normal patellofemoral articulation. Small joint effusion. RAD/Knee 4 or More Views IMPRESSION: Joint effusion, no fracture identified. Electronically Signed: Krishna Hartley MD at 11:03 EST , Service support , CC: Alicia Cox Psych Coordinator: Signed Alicia Cox Work Phone: Start: 07-19-2015 End: 07-19-2015 Hand Min 3 Views Comments: See Note; NOTES: [facility] Imaging Services [address] [place] [id number] [place] 4d Hand Min 3 Views MR#: [id number] Acct: [id number] Name: RADHA MENG Rep #: [id number] : 1950 M 65 From: Duane Jones MD PCP: Rosita Capone DO Status: REG CLI Study: Hand Min 3 Views Date of Exam: 07/19/15 Exam# [id number] Ordering Dr: Kelly Laguerre DO STUDY: X-RAY - LEFT HAND REASON FOR EXAM: Male, 65 years old. Cyst in the distal tip of the middle finger TECHNIQUE: 3 view(s) of the hand. COMPARISON: Right x-rays of the left hand 12-31-14. FINDINGS: Normal visualized carpal bones. There are degenerative changes of triscaphe joint. There is degenerative arthrosis of the carpometacarpal (CMC) articulation of the thumb. Normal second through fifth carpometacarpal joints. Normal metacarpi. Normal metacarpophalangeal (MCP) joints. Normal visualized phalanges and interphalangeal joints. The soft tissue structures are unremarkable. IMPRESSION: No significant changes since the last examination. 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 [place] [address] Fax REHABILITATION SERVICES DISCHARGE SUMMARY MR#: [id number] Acct: [id number] Name: RADHA MENG Rep #: [id number] : 1950 64 From: Ninoska Musa Referring DrRobbie: Kelly Laguerre DO Status: REG RCR Eval Date: Discharge Date: DATE OF SERVICE: Radha's initial occupational therapy evaluation occurred on February 08, 2015. He was referred by Dr. Laguerre with a diagnosis of status post left third digit cyst and nail removal. The patient was seen in our outpatient occupational therapy clinic for a total of 7 visits to address left middle finger pain, left middle finger edema, decreased left middle finger range of motion, decreased left hand strength and decreased independence with ADLs, IADLs and leisure/work activities. Treatment methods included pain and edema control, orthotic fabrication, active and passive range of motion exercises and stretch, scar management/desensitization and progressive resistive exercises. Modalities such as moist heat were utilized. A home exercise program was designed to enhance functional abilities. Radha progressed well in his therapy sessions. He achieved MCP flexion 90 degrees, PIP flexion 100 degrees, DIP flexion 65 degrees, left park police strength 105 pounds. On March 02, 2015 the patient stated at his last visit that he was to see Dr. Laguerre in 1 week. He was advised to contact us if he needed additional therapy. His then came in couple of days later stating that the patient was ill and will not be attending therapy sessions. Therefore, he will be discharged from occupational therapy. Ninoska Musa, OTR/L T: CLARISA JOB: [id number] <Electronically signed by Ninoska Musa > 03/23/15 1548 CC: Signed Rosita Capone Start: 03-23-2015 End: 03-23-2015 Kidney and Bladder Comments: See Note; NOTES: [facility] Imaging Services [address] [place] [id number] [place] 4d Kidney and Bladder MR#: [id number] Acct: [id number] Name: RADHA MENG Rep #: [id number] : 1950 M 64 From: Clemente Dobson DO PCP: Rosita Capnoe DO Status: REG CLI Study: Kidney and Bladder Date of Exam: 03/23/15 Exam# [id number] Ordering Dr: Alicia Cox STUDY: RENAL ULTRASOUND - COMPLETE REASON FOR EXAM: Male, 64 years old. BPH. Nocturia. TECHNIQUE: Ultrasound evaluation of the kidneys was performed with real-time and static south-scale imaging. COMPARISON: CT the abdomen pelvis, March 07, 2015. FINDINGS: RIGHT KIDNEY: Normal location of the right kidney, which is normal in size. The right kidney measures 10.4 cm. There is a normal cortex of the right kidney. The renal cortex measures 1.3 cm. Again seen are parapelvic cysts. There are multiple focal areas of echogenicity throughout the right kidney thought to be vascular as no calcifications are seen on the CT. Small cyst in the lower pole cortex noted on CT is not appreciated. There is no right hydronephrosis. DISTAL RIGHT URETER: There is non-visualization of the distal right ureter. There is no demonstrated right ureterovesical junction calculus. There is a visualized right ureteral jet. LEFT KIDNEY: Normal location of the left kidney, which is normal in size. The left kidney measures 10.5 cm. There is a normal cortex of the left kidney. The renal cortex measures 1.5 cm. There are multiple parapelvic renal cysts. There are no left renal calculi. There is no left hydronephrosis. DISTAL LEFT URETER: There is non-visualization of the distal left ureter. There is no demonstrated left ureterovesical junction calculus. There is a visualized left ureteral jet. BLADDER: The distended urinary bladder has a volume of 39 ml. The empty urinary bladder has a volume of ml. There is a normal wall thickness of the distended urinary bladder. There is no demonstrated mass within the urinary bladder. There are no demonstrated bladder calculi. The prostate is enlarged with a volume of 44 mL. IMPRESSION: 1. Bilateral parapelvic renal cysts. 2. Enlarged prostate. Electronically Signed: Clemente Dobson DO at 21:05 EST Tel [phone], Service support [phone], CC: Alicia Cox; Harrison Lopez MD; Rosita Capone DO Psych Coordinator: Signed Alicia Cox Work Phone: Start: 03-08-2015 End: 03-08-2015 Emergency Department Summary Comments: See Note; NOTES: [facility] Medical Records Department [address] [place] [address] Emergency Department Summary MR#: [id number] Acct: [id number] Name: RADHA MENG Rep #: [id number] : 1950 64 From: Tori Saunders MD PCP: Rosita Capone DO Status: [facility] ER DATE OF SERVICE: 03/08/2015 CHIEF COMPLAINT: Diarrhea. FOFANA HISTORY: The patient is a 64-year-old gentleman who has had diarrhea for now 13 days. He was seen in the ER yesterday and diagnosed with C. difficile colitis. He was feeling well and went to try home therapy. He was discharged with Flagyl. The patient states he continues to have diarrhea every 1-2 hours. He feels more dehydrated and having abdominal cramps. He has had some subjective fevers at home since his discharge. PHYSICAL EXAMINATION: VITAL SIGNS: Blood pressure is 138/106, temperature 99.4, heart rate 107, respiratory rate is 14, pulse ox 96% on room air. GENERAL: The patient is sitting upright in bed. He is slightly tachycardic. LUNGS: Clear. ABDOMEN: Soft with no focal tenderness on exam. He has hypoactive bowel sounds. HOSPITAL COURSE: The patient was given IV fluids, morphine and Zofran. CBC today reveals a white count of 23; this is elevated from 18 yesterday. Hemoglobin is 16.9; it is concentrated to 18 yesterday. Chemistry studies are unremarkable. The patient will be admitted for further hydration and continued treatment. DISPOSITION: Admit. IMPRESSION: Clostridium difficile colitis. Tori Saunders MD T: NTS JOB: [id number] 03/08/15 2257 <Electronically signed by Tori Saunders MD> Date Tori Saunders MD Cosigner Signature (If Indicated): Date CC: Rosita Capone DO Date Dictated: 03/08/152245 Date Transcribed: 03/08/152245 Psych Coordinator: Signed Rosita Capone Start: 03-08-2015 End: 03-08-2015 Emergency Department Summary Comments: See Note; NOTES: [facility] Medical Records Department [address] [place] [address] Emergency Department Summary MR#: [id number] Acct: [id number] Name: ULIYVESRADHA Rep #: [id number] : 1950 64 From: Tori Saunders MD PCP: Rosita Capone DO Status: [facility] DATE OF SERVICE: 03/07/2015 CHIEF COMPLAINT: Abdominal pain and diarrhea. FOFANA HISTORY: The patient is a 64-year-old gentleman with a 12-day history of diarrhea over the weekend that has now been ongoing roughly every hour to half hour. He has not had any blood associated with it. He had 1 episode of vomiting and 1 episode of dry heave starting yesterday. PHYSICAL EXAMINATION: VITAL SIGNS: Unremarkable. He is afebrile at 98.9. GENERAL: The patient is sitting upright in bed. He appears that he does not feel well, but he is not toxic appearing. HEART: Regular. LUNGS: Clear. ABDOMEN: Soft with mild diffuse tenderness. No guarding or rebound. He has hypoactive bowel sounds. HOSPITAL COURSE: The patient was given morphine, Zofran and fluids. CBC reveals a white count of 18.3, hemoglobin is concentrated at 18. Chemistry studies are normal. Urine is negative. CT abdomen and pelvis with p.o. and IV contrast shows diffuse colitis worse along the right colon with increased markings in the surrounding peritoneal fat. Test results were discussed. The patient had just been given a stool sample. He was given a dose of IV Cipro and Flagyl while we are awaiting stool. Initial results, this returns positive for fecalith and his C. diff test does return positive. At this point, the patient is tolerating p.o. He wishes to try to go home if at all possible. We will treat him with oral Flagyl. If he develops fever or vomiting or he cannot tolerate the medication, he is to come back for inpatient treatment. I did speak with Dr. Capone, his PCP and update her. DISPOSITION: Discharge. IMPRESSION: Clostridium difficile colitis. Tori Saunders MD T: NTS JOB: [id number] 03/08/15 1528 <Electronically signed by Tori Saunders MD> Date Tori Saunders MD Cosigner Signature (If Indicated): Date CC: Rosita Capone DO Date Dictated: 03/07/151540 Date Transcribed: 03/07/151540 Psych Coordinator: Signed Rosita Capone Start: 03-07-2015 End: 03-07-2015 Discharge Instruction Comments: See Note; NOTES: [facility] Medical Records Department [address] [place] [address] Discharge Instruction 03/07/15 1608 MR#: [id number] Acct: [id number] Name: RADHA MENG Rep #: [id number] : 1950 64 From: Tori Saunders MD PCP: Rosita Capone DO Status: REG ER ED Disposition - Plan for ED Patient: Disposition: Home or Assisted Living Chief Complaint: Diarrhea Instructions: Clostridium difficile Infection Prescriptions: Ondansetron [Zofran Odt] 4 mg PO Q8H PRN PRN #10 tablet PRN Reason: Nausea Metronidazole [Flagyl] 500 mg PO Q6H #40 tablet Referrals: Rosita Capone DO [Primary Care Provider] - 1 Week What to do if you have Problems For any increased pain, shortness of breath, bleeding, nausea or vomiting, chest pain, or any unexpected problems, contact your doctor. Call [facility] ([phone]) or report to the closest Emergency Room. Call 911 if necessary. 03/07/15 1609 <Electronically signed by Tori Saunders MD> Date Tori Saunders MD Cosigner Signature (If Indicated): Date CC: Rosita Hill Start: 03-07-2015 End: 03-07-2015 Abdomen/Pelvis WITH Contrast Comments: See Note; NOTES: [facility] Imaging Services [address] [place] [address] Verdana 4d Abdomen/Pelvis WITH Contrast MR#: [id number] Acct: [id number] Name: RADHA MENG Rep #: [id number] : 1950 M 64 From: Jonnathan Castillo MD PCP: Rosita Capone DO Status: [facility] Study: Abdomen/Pelvis WITH Contrast Date of Exam: 03/07/15 Exam# [id number] Ordering Dr: Tori Saunders MD STUDY: CT ABDOMEN AND PELVIS WITH CONTRAST REASON FOR EXAM: Male, 64 years old. 10 day history of diarrhea and abdominal cramping. Elevated white count as well as elevated hemoglobin. RADIATION DOSAGE (If Supplied By Facility): CTDIvol = ( 14.40 ) mGy, DLP = ( 1510.19 ) mGycm TECHNIQUE: Transaxial images were obtained from the dome of the diaphragm to the symphysis pubis with oral contrast. 100mL ml of Isovue 300 contrast was administered. Sagittal and coronal images were reconstructed. Delayed imaging was obtained as well. COMPARISON: None. FINDINGS: The visualized lung bases are unremarkable. The visualized portions of the heart are within normal limits. Normal liver. Normal gallbladder and extrahepatic biliary system. Normal spleen. Normal pancreas. Normal bilateral adrenal glands. Small parapelvic cysts. Small cyst is seen in the lower pole calyx. Multiple left parapelvic cysts. There is a small hiatal hernia. Normal small intestine. There is diffuse circumferential thickening of the colonic wall worse in the ascending colon up to the region of the splenic flexure. Increased markings are seen in the surrounding peritoneal fat. Diffuse colitis should be ruled out. The appendix is visualized and appears normal. There is scattered atherosclerotic calcification of the abdominal aorta, without a demonstrated aneurysm. Normal inferior vena cava. Normal retroperitoneum. Normal urinary bladder. Prostatic enlargement with indentation at the bladder base. The prostate measures 4.5 cm x 5 cm. There is a small umbilical hernia containing fat. There are diffuse degenerative changes of the visualized lumbar spine. Levoscoliosis. IMPRESSION: Findings in keeping with diffuse colitis worse involvement of the right hemicolon with the increased markings in the surrounding peritoneal fat. Electronically Signed: Jonnathan Castillo MD at 11:41 EST Tel [phone], Service support [phone], CC: Tori Saunders MD; Rosita Capone DO Psych Coordinator: Signed Rosita Capone Start: 02-10-2015 End: 02-10-2015 Initial Evaluation - OT Comments: See Note; NOTES: [facility] Occupational Therapy [facility] [address] [place], [place] [address] Fax REHABILITATION SERVICES INITIAL EVALUATION MR#: [id number] Acct: [id number] Name: RADHA MENG Rep #: [id number] : 1950 64 From: Ninoska Musa Referring DrRobbie: Kelly Laguerre DO Status: REG R Insurance: [facility] Date: DATE OF SERVICE: SUBJECTIVE: This 64-year-old male was seen for his initial occupational therapy evaluation on February 08, 2015. He was referred by Dr. Laguerre with a diagnosis of status post left third digit cyst and nail removal. The patient states about 2 months ago, he developed a cyst that split his left middle finger nail. He proceeded to Dr. Laguerre in which surgery was performed on January 26, 2015. Stitches are recently removed and Steri-Strips are in place. The patient is also wearing a gauze bandage around the site for protection. The patient is taking Aleve as needed to manage his pain. He was prescribed Vicodin and took it one time right after surgery. The patient has a past medical history of arthritis. He has a followup appointment in 1 month on March 08, [address] Laguerre. ADLS: The patient states he is having difficulty in performing his functional activities. He states he is not using his left hand very much. He is unable to park police the steering wheel or turn a doorknob. 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 PAIN: The patient reports at rest his pain is a 1-2/10 level and with active range of motion (especially when bumped) a 7-8/10 pain in his left middle finger, particularly on the nail bed. OBSERVATION: The patient is demonstrating with a newly healing incision site. It is intact with Steri-Strips in place. No sign of infection. There is edema in the left middle finger. OBJECTIVE: Right middle MCP flexion 85 degrees, left 75 degrees. Right middle PIP flexion 100 degrees, left 65 degrees. Right middle DIP flexion 75 degrees, left deferred. LAMINA SEARCHER STRENGTH: Right 103 pounds, left 43 pounds. Lateral pinch right 14 pounds, left 11 pounds. Tripod pinch right 11 pounds, left deferred. EDEMA MEASUREMENTS: Right middle PIP 6.9 cm, left 7.5 cm. FINE MOTOR: The patient is right-hand dominant. SENSATION: The patient reports numbness at the tip of the left middle finger. PROBLEMS: 1. Left middle finger pain. 2. Left middle finger edema. 3. Decreased left middle finger range of motion. 4. Decreased left hand strength. 5. Decreased independence with ADLs, IADLs and leisure/work activities. ASSESSMENT: The patient presents with a need for outpatient occupational therapy services due to the above-mentioned problems. He presents with good rehabilitation potential following compliance with attending therapy sessions and performing a home program. GOALS: 1. The patient will demonstrate with an increase in left middle finger range of motion equal to right to park police the steering wheel by discharge. 2. The patient will demonstrate a decrease in left middle finger edema by at least 0.5 cm to form a composite fist to turn a doorknob by discharge. 3. The patient will demonstrate with an increase in left park police strength to 60 pounds, left lateral pinch to 14 pounds, left tripod pinch to 11 pounds, to lift boxes at work by discharge. 4. The patient will report pain no greater than 0-1/10 during functional activities while utilizing his protective orthotic by discharge. 5. The patient will report complete independence in performing his ADLs, IADLs and leisure/work activities by discharge. PLAN: I plan to see this patient approximately 2-3 times a week for 4-6 weeks. Treatment methods will include, but not be limited to, pain and edema control, orthotic fabrication, active and passive range of motion exercises and stretch, scar management/desensitization and progressive resistive exercises. Modalities such as paraffin, ultrasound, moist heat and cold will be utilized. A home exercise program will be designed to enhance functional abilities. Ninoska Musa, OTR/L T: NTS JOB: [id number] <Electronically signed by Ninoska Musa > 02/10/15 1229 CC: Signed For Medicare only, by signing this I certify the plan of care. _ Physicians Signature Date Rosita Capone Start: 02-08-2015 End: 02-08-2015 Operative Report Comments: See Note; NOTES: [facility] Medical Records Department [address] [place] [address] Operative Report 01/26/15 1616 MR#: [id number] Acct: [id number] Name: RADHA MENG Rep #: [id number] : 1950 64 From: Kelly Laguerre DO PCP: Rosita Capone DO Status: [facility] [place] [facility] [place] Date of Procedure: 01/26/15 Pre-Operative Diagnosis: left third finger mucoid cyst/ nail derangement Post-Operative Diagnosis: same Surgery/Procedure Performed:: left third nail removal, mucoid cyst excision, regional anesthesia injection Type of Anesthesia:: Block,Regional Specimen's removed: cyst Estimated Blood Loss: minimal Fluids Replaced: none Description of Procedure: Preoperative note Patient well-known to me in clinic. Patient has a left 3rd finger nail derangements and a mucoid cyst at the base of his nail. Risks benefits and alternative surgery were discussed with patient. Risks including but not limited to blood loss, blood clot, infection, neurovascular injury, failure procedure, loss of life or loss of limb. Patient is aware would like proceed with left 3rd finger nail removal and cyst excision. Operative note Patient seen and examined preoperative holding area. Left 3rd finger was marked. Patient was brought to the operating room placed supine on the operating room table. Please note that prior to coming into the operating room he did receive by mouth antibiotics. We then performed a local block of his left 3rd digit. The patient underwent asceptic digital block using 8cc 1% lidocaine split 1/2 into each radial and ulnar side digital nerve at base of 3rd finger proximal phalanx. After 10 minutes he report complete numbness in finger. We confirmed that he had no feeling in his left 3rd finger. His left hand was then prepped and draped in usual sterile fashion. We marked out a the incision starting from the sides of his nails going down to the level of his DIP joint with an extension into a Y configuration in case we had to address the joint. Timeout was performed. We then placed a turnicot around his left 3rd finger. We used a 15 blade to cut through the skin down to level of subcutaneous layer. We used the knife to gently elevate the skin off of the subcutaneous layer, we were able to visualize a mucoid cyst. We then were able to remove the nail in its entirety. This was sent to pathology. We then gently excised the cyst in its entirely and sent that to pathology as well. We then ablated the stalk. The incision was irrigated with copious amounts of sterile saline. The incision was closed with interrupted 4-0 nylon sutures and sterile dressings were applied. Tourniquet was removed for total working time of 23 minutes. The patient tolerated the procedure well and there were no complications. Postoperative note Maintain dressing until seen in clinic Call with concerns Pain prescription in chart This note was generated with [employer] dictation software. It may contain incorrect words, spelling, and punctuation that were not noted in checking the note before signing. 02/08/15 0913 <Electronically signed by Kelly Laguerre DO> Date Kelly Laguerre DO CC: Kelly Laguerre DO; Rosita Capone DO Signed Rosita Capone Start: 01-26-2015 End: 01-26-2015 Discharge Instruction Comments: See Note; NOTES: [facility] Medical Records Department [address] [place] [address] Instructions for Home/Discharge Instructions 01/26/15 1616 MR#: [id number] Acct: [id number] Name: RADHA MENG Rep #: [id number] : 1950 64 From: Kelly Laguerre DO PCP: Rosita Capone DO Status[place] [facility] [place] Diet: No Restrictions - leave dressing on until seen in clinic Discharge Activity: May Not Drive May shower in (days): 1 Ice area for (Minutes): 20 - Every hour while awake. Weight Bearing Status: Weight bearing as stephanie Keep extremity elevated above heart level: Operative Extremity Call your doctor if your incision/area has: Continuous Slow Oozing, Sudden Increased Bleeding, Increased Pain/ Swelling, Increased Redness, Foul Smelling Discharge Call your doctor if you observe: Fever of 101 or Higher, Coldness, Increased Pain, Numbness or Tingling, Change in Color, Calf discomfort Allergies/Adverse Reactions: Allergies amoxicillin Allergy (Verified 11/12/14 17:53) Rash Medications to take at Discharge Antiarthritic Combination No.2 [Glucosamine-Chondroitin] 900 mg PO DAILY 11/12/14 Aspirin [Aspirin, Baby] 81 mg PO DAILY@0800 01/24/15 Multivitamins,Therapeutic [Multivitamin] 1 tablet PO DAILY 01/24/15 Hydrocodone/Acetaminophen [Vicodin 5-300 mg Tablet] 1 - 2 tablet PO Q6H PRN PRN #60 tablet The following prescriptions were given: Hydrocodone/Acetaminophen [Vicodin 5-300 mg Tablet] 1 - 2 tablet PO Q6H PRN PRN #60 tablet PRN Reason: Pain Please Follow Up With: Kelly Laguerre - [phone] 01/26/15 1616 <Electronically signed by Kelly Laguerre DO> Date Kelly Laguerre DO CC: Rosita Hill Start: 12-31-2014 End: 01-01-2015 Hand Min 3 Views Comments: See Note; NOTES: [facility] Imaging Services [address] [place] [address] [place] [address] Radiology Report MR#: [id number] Acct: [id number] Name: RADHA MENG Rep #: [id number] : 1950 M 64 From: Jeffrey Lynne MD PCP: Rosita Capone DO Status: REG CLI Study: Hand Min 3 Views Date of Exam: 12/31/14 Exam# [id number] Ordering Dr: Kelly Laguerre DO STUDY: X-RAY - LEFT HAND REASON FOR EXAM: Male, 64 years old. Fingernail torn off TECHNIQUE: 3 view(s) of the hand. COMPARISON: None. FINDINGS: There is osteoarthritis at the basal joint of the thumb, first MCP joint and first IP joint. There is no fracture. There is no osseous erosion. There is no periosteal reaction. There is no soft tissue calcification. 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 Electronically Signed: Jeffrey Lynne MD at 10:15 EDT Tel , Service support [phone], CC: Kelly Laguerre DO; Rosita Capone DO Psych Coordinator: Signed Rosita Capone Start: 05-03-2014 COLNOSCOPY CELIA CASTILLO MD Start: 12-30-2007 Colonoscopic polypectomy Colonoscopic polypectomy CELIA CASTILLO MD Start: 04-01-2007 Colonoscopy CELIA CASTILLO MD Comment on above: POLYP, TUBULAR ADENOMA Biopsy of lesion of skin CELIA CASTILLO MD Colonoscopy Vanita Blankenship Comment on above: 2001 & 12-18-07 sessile polyp of descendi ng colon Colonoscopy Vanita Blankenship Comment on above: 2001 & 12-18-07 sessile polyp of descendi ng colon Colonoscopy Ninoska Law Comment on above: 2001 & 12-18-07 sessile polyp of descendi ng colon Colonoscopy George Portillo Comment on above: 2001 & 12-18-07 sessile polyp of descendi ng colon Colonoscopy Barb Otto Comment on above: 200112-18-07 sessile polyp of descendi ng colon Excision CELIA CASTILLO MD Excision CELIA CASTILLO MD Comment on above: cyst on middle left hand Past history of procedure Barb Otto Comment on above: 2001 & 12-18-07 sessile polyp of descendi ng colon Past history of procedure Rach Pineda CLINICAL DIRECTOR Comment on above: 2001 & 12-18-07 sessile polyp of descendi ng colon Past history of procedure Lou Shah CLINICAL DIRECTOR Comment on above: 2001 & 12-18-07 sessile polyp of descendi ng colon Past history of procedure Nubia Navas LANDFILL ATTENDANT Comment on above: 2001 & 12-18-07 sessile polyp of descendi ng colon Past history of procedure Nubia Navas LANDFILL ATTENDANT Comment on above: 2001 & 12-18-07 sessile polyp of descendi ng colon Past history of procedure Max Trinh CLINICAL DIRECTOR Comment on above: 2001 & 12-18-07 sessile polyp of descendi ng colon Past history of procedure NADEGE Lara CLINICAL DIRECTOR Comment on above: 2001 & 12-18-07 sessile polyp of descendi ng colon Plan of Treatment Date Care Activity Detail Author Start: 12-20-2031 Urine microalbumin profile DTaP,Tdap,Td Vaccine (2 - Td or Tdap) [facility] Start: 2026 RSV Vaccine (1 - 1-dose 75+ series) RSV Vaccine (1 - 1-dose 75+ series) [facility] Start: 02-01-2025 End: 02-01-2025 ambulatory 02/01/2025 9:10 AM EST Visit (SP) Office Hematology/Oncology [address] [place] [address] Jt Junior MD [address] [place] [address] 4MO OV/CT & LABS 01/25* Hematology/Oncology Comment on above: 4MO OV/CT & LABS 01/25* Start: 01-25-2025 End: 01-25-2025 Patient encounter procedure 01/25/2025 9:00 AM EDT Appointment Cat Scan [address] [place] [address] Dx: Lung nodules [R91.8] Cat Scan Comment on above: Dx: Lung nodules [R91.8] Start: 01-25-2025 End: 01-25-2025 ambulatory 01/25/2025 8:45 AM EDT Results Only Alyssa Rosales [facility] [address] [place] [address] HEPATIC PANEL [facility] Comment on above: HEPATIC PANEL Start: 11-30-2024 Influenza vaccination Influenza Vaccine (Season Ended) [facility] Start: 09-28-2024 End: 09-28-2024 ambulatory 09/28/2024 10:40 AM EDT Visit (SP) Office Hematology/Oncology [address] [place] [address] Jt Junior MD [address] [place] [address] CLINICAL REVIEWER/COLON CANCER/REFERRED BY CELIA CASTILLO/FIRST AVAILABLE* Hematology/Oncology Comment on above: CLINICAL REVIEWER/COLON CANCER/REFERRED BY CELIA CASTILLO /FIRST AVAILABLE* Start: 08-13-2024 End: 08-13-2024 ambulatory 08/13/2024 9:30 AM EDT Visit (SP) Office Hematology/Oncology [address] [place] [address] Cathie Salamanca [address] [place] [address] OV*LABS 08/05 Hematology/Oncology Comment on above: OV*LABS 08/05 Start: 08-11-2024 End: 11-10-2024 CBC W Auto Differential panel - Blood COMPLETE BLOOD COUNT AND DIFFERENTIAL Lab STAT Iron deficiency anemia secondary to inadequate dietary iron intake Expected: 08/11/2024 (Approximate), Expires: 11/10/2024 [facility] Work Phone: Comment on above: Expected: 08/11/2024 (Approximate), Expi res: 11/10/2024 Start: 08-11-2024 End: 11-10-2024 Ferritin [Mass/volume] in Serum or Plasma FERRITIN Lab Routine Iron deficiency anemia secondary to inadequate dietary iron intake Expected: 08/11/2024 (Approximate), Expires: 11/10/2024 [facility] Comment on above: Expected: 08/11/2024 (Approximate), Expi res: 11/10/2024 Start: 08-11-2024 End: 11-10-2024 Iron and Iron binding capacity panel - Serum or Plasma IRON AND TIBC Lab Routine Iron deficiency anemia secondary to inadequate dietary iron intake Expected: 08/11/2024 (Approximate), Expires: 11/10/2024 [facility] Comment on above: Expected: 08/11/2024 (Approximate), Expi res: 11/10/2024 Start: 08-05-2024 End: 08-05-2024 ambulatory 08/05/2024 10:00 AM EDT Results Only Alyssa Rosales [facility] [address] [place] [address] CBC/FERRATIN/IRON STUDIES* Monumenthaley Dalywn [facility] Comment on above: CBC/FERRATIN/IRON STUDIES* Start: 06-05-2024 End: 06-05-2024 ambulatory 06/05/2024 2:30 PM EST Infusion Center Hematology/Oncology [address] [place] [address] 2ND FLOOR Hematology/Oncology Comment on above: 2ND FLOOR Start: 06-03-2024 End: 06-03-2024 ambulatory 06/03/2024 9:30 AM EST Infusion Center Hematology/Oncology [address] [place] [address] 2ND FLOOR Hematology/Oncology Comment on above: 2ND FLOOR Start: 06-01-2024 End: 08-31-2024 CBC W Ordered Manual Differential panel - Blood PATHOLOGIST INTERPRETATION WITH CBC AND DIFF Lab Routine Iron deficiency anemia, unspecified iron deficiency anemia type Expected: 06/01/2024 (Approximate), Expires: 08/31/2024 [facility] Work Phone: Comment on above: Expected: 06/01/2024 (Approximate), Expi res: 08/31/2024 Start: 06-01-2024 End: 06-01-2024 ambulatory 06/01/2024 8:30 AM [facility] Infusion Center Hematology/Oncology [address] [place] [address] CBC 3rd IRON INFUSION Hematology/Oncology Comment on above: CBC 3rd IRON INFUSION Start: 05-29-2024 End: 08-28-2024 CBC W Auto Differential panel - Blood COMPLETE BLOOD COUNT AND DIFFERENTIAL Lab STAT Iron deficiency anemia secondary to inadequate dietary iron intake Expected: 05/29/2024 (Approximate), Expires: 08/28/2024 [facility] Work Phone: Comment on above: Expected: 05/29/2024 (Approximate), Expi res: 08/28/2024 Start: 05-28-2024 End: 05-28-2024 ambulatory 05/28/2024 3:00 PM [facility] Infusion Center Hematology/Oncology [address] [place] [address] 2ND FLOOR Hematology/Oncology Comment on above: 2ND FLOOR Start: 05-26-2024 End: 05-26-2024 ambulatory 05/26/2024 1:30 PM [facility] Infusion Center Hematology/Oncology [address] [place] [address] 2ND FLOOR Hematology/Oncology Comment on above: 2ND FLOOR Start: 04-01-2024 Advance Directive Discussion Advance Directive Discussion [facility] Start: 12-01-2023 Covid-19 Vaccine ( season) Covid-19 Vaccine () [facility] Start: 12-01-2023 Influenza vaccination Influenza Vaccine (#1) [facility] Start: 02-13-2023 Patient discharge [facility] Start: 01-21-2023 Provider Instructions for Treatment Follow up in 1 week [facility] Work Phone: Start: 01-14-2023 Procedure Education Eprescribed prescriptions (G8553) [facility] Work Phone: Start: 10-05-2022 Procedure Education Eprescribed prescriptions (G8553) [facility] Work Phone: Start: 10-05-2022 Provider Instructions for Treatment Continue Current Prescription(s) [facility] Work Phone: Start: 07-17-2022 Potassium serum plasma/whole blood POTASSIUM SERUM (60213) [facility] Work Phone: Start: 07-16-2022 Procedure Education Eprescribed prescriptions (G8553) [facility] Work Phone: Start: 07-16-2022 Provider Instructions for Treatment [facility] Work Phone: Start: 07-16-2022 Assay of thyroid stimulating hormone tsh TSH (57722) [facility] Work Phone: Start: 07-16-2022 Comprehensive metabolic panel METABOLIC PANEL, COMPREHENSIVE (42352) [facility] Work Phone: Start: 07-16-2022 Blood count complete auto&auto difrntl wbc CBC W/AUTO DIFF WBC (36293) [facility] Work Phone: Start: 07-16-2022 Lipid panel LIPID PANEL (40008) [facility] Work Phone: Start: 06-08-2022 Procedure Education Eprescribed prescriptions (G8553) [facility] Work Phone: Start: 06-08-2022 Provider Instructions for Treatment [facility] Work Phone: Start: 06-07-2021 Procedure Education Eprescribed prescriptions (G8553) [facility] Work Phone: Start: 06-07-2021 Provider Instructions for Treatment [facility] Work Phone: Start: 06-07-2021 Hepatitis c antibody HEPATITIS C ANTIBODY (91930) [facility] Work Phone: Start: 01-29-2021 Screening for malignant neoplasm of colon [facility] Start: 12-13-2020 Procedure Education Eprescribed prescriptions (G8553) [facility] Work Phone: Start: 12-13-2020 Provider Instructions for Treatment Reviewed Lab [facility] Work Phone: Start: 12-12-2020 Procedure Education Eprescribed prescriptions (G8553) [facility] Work Phone: Start: 12-12-2020 Provider Instructions for Treatment Follow up tomorrow, 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 [facility] Work Phone: Start: 12-12-2020 [place] influenza 2019 Novel Coronavirus (COVID-19), FARIBA (59083) [facility] Work Phone: Comment on above: to get Pcr Start: 03-09-2020 Procedure Education Eprescribed prescriptions (G8553) [facility] Work Phone: Start: 03-09-2020 Provider Instructions for Treatment [facility] Work Phone: Start: 03-09-2020 Assay of prostate specific antigen total PSA (PROSTATE SPECIFIC ANTIGEN) (V76.44) [facility] Work Phone: Comment on above: send results to dr lopez Start: 02-22-2020 [place] influenza 2019 Novel Coronavirus (COVID-19), FARIBA (24272) [facility] Work Phone: Start: 02-18-2020 [place] influenza 2019 Novel Coronavirus (COVID-19), FARIBA (33136) [facility] Work Phone: Start: 02-18-2020 Procedure Education Eprescribed prescriptions (G8553) [facility] Work Phone: Start: 03-06-2019 Procedure Education Eprescribed prescriptions (G8553) [facility] Work Phone: Start: 11-20-2018 Procedure Education Eprescribed prescriptions (G8553) [facility] Work Phone: Start: 09-24-2018 Procedure Education Eprescribed prescriptions (G8553) [facility] Work Phone: Start: 09-24-2018 Provider Instructions for Treatment BP MONITORING - SELF [facility] Work Phone: Start: 07-10-2018 Provider Instructions for Treatment Follow up if no improvement or if symptoms worsen [facility] Work Phone: Start: 07-09-2018 Procedure Education Eprescribed prescriptions (G8553) [facility] Work Phone: Start: 12-16-2017 Provider Instructions for Treatment Reviewed Literature Teacher Letter [facility] Work Phone: Start: 12-13-2017 Provider Instructions for Treatment [facility] Work Phone: Start: 12-13-2017 Oncology colorectal screening charisse 10 dna markrs Cologuard - Strool Based DNA Test, CRC SCREEN (34740) [facility] Work Phone: Start: 11-18-2017 Provider Instructions for Treatment [facility] Work Phone: Start: 05-22-2017 Procedure Education Eprescribed prescriptions (G8553) [facility] Work Phone: Start: 05-22-2017 Provider Instructions for Treatment BP MONITORING - SELF [facility] Work Phone: Start: 03-13-2017 Provider Instructions for Treatment [facility] Work Phone: Start: 03-01-2017 Provider Instructions for Treatment [facility] Work Phone: Start: 03-01-2017 Urinalysis qual/semiquant except immunoassays URINALYSIS (31318) [facility] Work Phone: Start: 02-27-2017 Procedure Education Eprescribed prescriptions (G8553) [facility] Work Phone: Start: 02-27-2017 Provider Instructions for Treatment Follow up in 2 weeks [facility] Work Phone: Start: 04-27-2016 Procedure Education Eprescribed prescriptions (G8553) [facility] Work Phone: Start: 04-27-2016 Provider Instructions for Treatment [facility] Work Phone: Start: 04-01-2016 Medicare Annual Wellness Visit Medicare Annual Wellness Visit [facility] Start: 01-12-2016 Provider Instructions for Treatment [facility] Work Phone: Start: 01-12-2016 Blood occult fecal hgb deter ia qual feces 1-3 FECAL OCCULT- Tubes sent home (66617) [facility] Work Phone: Start: 05-16-2015 Provider Instructions for Treatment [facility] Work Phone: Start: 03-14-2015 Provider Instructions for Treatment [facility] Work Phone: Start: 06-15-2014 Provider Instructions for Treatment Follow up if no improvement or if symptoms worsen [facility] Work Phone: Start: 03-01-2014 Provider Instructions for Treatment [facility] Work Phone: Start: 06-29-2011 Provider Instructions for Treatment Follow up if no improvement or if symptoms worsen [facility] Work Phone: Start: 07-07-2010 Provider Instructions for Treatment [facility] Work Phone: Start: 04-12-2010 Provider Instructions for Treatment GERD Education [facility] Work Phone: Start: 04-04-2009 Provider Instructions for Treatment GERD Education [facility] Work Phone: Start: 12-25-2007 Provider Instructions for Treatment Reviewed Lab [facility] Work Phone: Start: 11-27-2007 Provider Instructions for Treatment [facility] Work Phone: Start: 11-27-2007 Cul bact xcpt urine blood/stool aerobic isol TURNER CULTURE-OTHER (92103) [facility] Work Phone: Start: 09-18-2007 Provider Instructions for Treatment [facility] Work Phone: Start: 08-21-2007 Provider Instructions for Treatment [facility] Work Phone: Start: 08-01-2006 Provider Instructions for Treatment GERD Education [facility] Work Phone: Start: 08-01-2006 Lipid panel LIPID PANEL (51537) [facility] Work Phone: Start: 08-01-2006 Urnls dip stick/tablet rgnt auto w/o microscopy URINALYSIS W/O MICRO (37006) [facility] Work Phone: Comment on above: NORMAL DONE AT [facility] Start: 08-01-2006 Assay of prostate specific antigen total PSA (PROSTATE SPECIFIC ANTIGEN) (93688) [facility] Work Phone: Comment on above: AFTER August Start: 08-01-2006 Protein mass conc PSA (PROSTATE SPECIFIC ANTIGEN) (91839) [facility] Work Phone: Comment on above: AFTER August Start: 2001 Pneumococcal Vaccine: 50+ (1 of 1 - PCV) Pneumococcal Vaccine: 50+ (1 of 1 - PCV) [facility] Start: 1996 Diabetes Screening Diabetes Screening [facility] Start: 1996 Screening for malignant neoplasm of colon [facility] Start: 1986 Lipid panel Lipid Screening [facility] Start: 1969 Anxiety Screening Anxiety Screening [facility] Start: 1969 Depression Screening Depression Screening [facility] Start: 1969 Hepatitis C screening Hepatitis C Screening [facility] End: 09-28-2025 Carcinoembryonic Ag [Mass/volume] in Serum or Plasma CARCINOEMBRYONIC ANTIGEN Lab Routine Lung nodules Malignant neoplasm of transverse colon (HCC) Every 4 months for 3 Occurrences starting 09/28/2024 until 09/28/2025 [facility] Comment on above: Every 4 months for 3 Occurrences startin g 09/28/2024 until 09/28/2025 End: 10-28-2025 CT Chest WO contrast CT CHEST WO IVCON Radiology Routine Lung nodules 1 Occurrences starting 09/28/2024 until 10/28/2025 [facility] Work Phone: Comment on above: 1 Occurrences starting 09/28/2024 until 10/28/2025 End: 09-28-2025 Hepatic function 2000 panel - Serum or Plasma HEPATIC FUNCTION PNL Lab Routine Lung nodules Malignant neoplasm of transverse colon (HCC) Every 4 months for 3 Occurrences starting 09/28/2024 until 09/28/2025 [facility] Comment on above: Every 4 months for 3 Occurrences startin g 09/28/2024 until 09/28/2025 Patient Education ED Crush Injur y, Hand ED Laceration, Hand: All Closures [facility] Work Phone: [facility] referral [facility] Work Phone: [facility] Work Phone: [facility] Work Phone: [facility] Work Phone: [facility] Work Phone: [facility] Work Phone: [facility] Work Phone: [facility] Work Phone: [facility] Work Phone: [facility] Work Phone[facility] Work Phone[facility] Work Phone: [facility] Work Phone: [facility] Work Phone: [facility] Work Phone: [facility] Work Phone: [facility] Work Phone: [facility]; [facility] Work Phone: Immunizations Immunization Date Immunization Notes Care Provider [facility] 12-19-2021 tetanus toxoid, reduced diphtheria toxoid, and acellular pertussis vaccine, adsorbed [facility] 03-02-2021 SARS-CoV-2 (COVID-19 ) mRNA-5310 vaccine CELIA CASTILLO MD [facility] Comment on above: Result Comment: 2024: [id number] 03-01-2021 COVID-Moderna (50 MCG/0.25 ML) Rosita Capone DO Work Phone: [facility]; [facility] Work Phone: 09-21-2020 zoster vaccine recombinant CELIA CASTILLO MD [facility] 09-21-2020 zoster vaccine, live Kathlee n Liborio DO Work Phone: [facility]; [facility] Work Phone: 04-27-2020 SARS-CoV-2 (COVID-19 ) mRNA-1273 vaccine CELIA CASTILLO MD [facility] 04-01-2020 COVID-Moderna (50 MCG/0.25 ML) Rosita Capone DO Work Phone: [facility] Medicine; [facility] Internal Medicine Work Phone: 03-30-2020 SARS-CoV-2 (COVID-19 ) mRNA-1273 vaccine CELIA CASTILLO MD [facility] 03-10-2020 zoster vaccine recombinant CELIA CASTILLO MD [facility] 03-10-2020 zoster vaccine, live Kathlee n Liborio DO Work Phone: [facility] Work Phone: 03-01-2020 COVID-Moderna (50 MCG/0.25 ML) Rosita Capone DO Work Phone: [facility]; [facility] Work Phone: 01-05-2015 influenza, injectabl e, quadrivalent, preservative free Dr. Rosita Capone Work Phone: [facility] 01-05-2015 influenza, seasonal, injectable [facility] 04-01-2014 tetanus and diphther ia toxoids, adsorbed, preservative free, for adult use (5 Lf of tetanus toxoid and 2 Lf of diphtheria toxoid) Rosita Capone DO Work Phone: [facility]; [facility] Work Phone: 04-01-2014 tetanus toxoid, reduced diphtheria toxoid, and acellular pertussis vaccine, adsorbed Rosita Capone [facility] Work Phone: 01-29-2009 influenza virus vaccine, unspecified formulation Cathie Salamanca Work Phone: [facility] 01-10-2009 influenza, seasonal, injectable Rosita Capone [facility] Work Phone: Comment on above: Lot #[id number] Site-left deltoidDose0.5mlgiven by Tera Hutchinson LPN 06-30-2003 tetanus and diphther ia toxoids, adsorbed, preservative free, for adult use (5 Lf of tetanus toxoid and 2 Lf of diphtheria toxoid) Rosita Capone DO Work Phone: [facility]; [facility] Work Phone: Payers Date Payer Category Payer Unknown 2024 Self-pay [id number] 2021 Medicare [id number] 2021 Unknown [id number] 01 2016 Private Health Insurance [id number] 2016 Unknown [id number] 2016 Medicare [id number] 2016 Unknown [id number] 2016 Medicare [id number] 2014 Unknown [id number] 2008 Unknown [id number] 2005 Unknown [id number] 2004 Unknown [id number] 1950 Unknown [id number] 1950 Unknown [id number] 1950 Unknown [id number] 1950 Unknown [id number] 1950 Unknown [id number] 1950 Unknown [id number] 1950 Unknown [id number] 1950 Unknown [id number] Private Health Insurance [id number] Unknown [facility] [id number] Unknown [id number] Unknown [id number] Unknown [id number] Unknown [id number] Unknown [id number] Unknown [id number] Social History Date Type Detail Facility Start: 05-22-2024 End: 09-28-2024 Alcohol Use [facility] Medicine Work Phone: Comment on above: Occasional alcohol u se 1- 1/2 QD 3-5 days a week, 25 to 60 mins. Remarried, heterosex ual Distribution Start: 12-19-2021 End: 01-31-2023 Tobacco smoking status NHIS Unknown if ever smoked [facility] Start: 1950 Sex Assigned At Male [facility] Start: 11-13-2014 None [facility] Start: 11-13-2014 Non-smoker [facility] Start: 04-30-2024 End: 05-22-2024 Tobacco smoking status NHIS Never smoked tobacco [facility] Start: 05-22-2024 Tobacco use and exposure Smokeless tobacco non-user [facility] Start: 05-22-2024 End: 09-28-2024 Tobacco use panel [facility] Start: 1950 Sex assigned at Not on file [facility] Start: 04-19-2014 End: 06-22-2024 Sex Male (finding) [facility] Start: 09-28-2024 Alcoholic beverage intake Ex-drinker (finding) [facility] Medical Equipment Procedure Code Equipment Code Equipment Origin al Text Equipment Identifier Dates Repair, hernia, umbilical, using mesh ([id number]) Extra-gynaecologic al surgical mesh, composite-polymer [id number] FDA Start: 02-13-2023 Goals Date Patient Goal Desired Activity /State Functional Status Date Assessment Result Facility 08-05-2024 Functional Status Sensory Defici ts [facility] 12-13-2017 LP-IR Score LP-IR Score 49 [facility] Work Phone: Comment on above: INSULIN RESISTANCE Sanjay MONTES <--Insulin Sensitive Insulin Resistant--> Percentile in Reference PopulationInsulin Resistance ScoreLP-IR Score Low 25th 50th 75th High <27 27 45 63 >63LP-IR Score is inaccurate if patient is non-fasting. .The LP-IR score is a laboratory developed index that has beenassociated with insulin resistance and diabetes risk and should beused as one component of a physician's clinical assessment. TheLP-IR score listed above has not been cleared by the [place] Food andDrug Administration. PATIENT WAS FASTINGP ERFORMED BY: BN [facility] [id number] [facility] [id number] BY: CB [facility] [id number] [facility] [id number] Mental Status Date Assessment Result Facility 02-13-2023 Cognitive function Voice/Name [facility] Work Phone: Clinical Notes 02-13-2023 to 12-07-2024 Jt Junior MD - 09/28/2024 10:30 AM EDTTelephone Encounter - Christine Douglasomi - 09/16/2024 12:41 PM ED[facility]ele[facility] 09/16/2024 12:41 PM EDT Note Date & Type Note Facility 12-07-2024 Radiology Diagnostic study note [facility] Imaging Services [address] [place], [place] [address] Kidney and Bladder MR#: [id number] Acct: [id number] Name: RADHA MENG Rep #: [id number] : 1950 M 74 From: Cr Castillo MD PCP: Dr. Rosita Capone DO Status: RE G CLI Study:Kidney and Bladder Date of Exam: 0 12/07/24 Exam# [id number] Ordering Dr: Zaid Capone DO PROCEDURE: KIDNEY AND BLADDER 12/07/2024 REASON FOR EXAM: COMPLETE ULTRASOUND OF KIDNEY; RIGHT EVAL COMPLEX R RENAL CYST SE TECHNIQUE: Procedure Code: USKI Modality: US Procedure: KIDNEY AND BLADDER COMPARISON: None FINDINGS: Kidneys: Normal renal sizes, parenchymal thicknesses, and echotextures. [place]: No evidence of hydronephrosis. Cysts or Masses: There is a 1.4 cm x 1 cm x 1.2 cm cyst in the right kidney. 2.8 cm cyst in the left kidney. Other: Prostate volume measures 57.7 mL. RIGHT Kidney Size: 10.6 cm x 6.1 cm x 4.6 cm Volume: 155.16 mL Cortical Thickness (if discernible): 16 mm (>6mm is normal) LEFT Kidney Size: 14.7 cm x 6.3 cm x 5.6 cm Volume: 217.83 mL Cortical Thickness (if discernible): 17 mm (>6mm is normal) There is a 1.7 cm x 2 cm x 0.8 cm left intrarenal calculus. US/Kidney and Bladder IMPRESSION: Bilateral renal cysts. 1.7 cm 2 cm 0.8 cm calculus in the left kidney. Reading Location: [id number] CC: Dr. Rosita Capone, DO ~ Psych Coordinator: Signed [facility] 09-28-2024 Note HNO ID: [id number] Author: JT JUNIOR MD Service: ? Author Type: Physician Type: Progress Notes Filed: 09/28/2024 11:03 Note Text: HISTORY OF PRESENT ILLNESS: Radha Meng is a 74 year old male here several months ago with MONA, referred to GI, found a transverse colon cancer. Here for follow up, feels well post op. Resection occurred 08-26-24, Dr Jonathan Valdes Preop staging negative other than chest CT showed 2 mm nodule pT3N0 G2, negative for LVI, perineural invasion, no ssx obstruction. 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 No role for adjuvant chemotherapy. 2 mm lung nodule. RECOMMENDATION/PLAN: 1. Plan surveillance with serial CEA and hepatic panel, yearly CT CAP 2. [place] term CT chest to follow up on lung nodule. 3. I will see back after labs and chest CT in 4 months or so. Written and verbal health teaching given to patient, patient verbalizes understanding and agrees with treatment plan. PAST MEDICAL HISTORY Diagnosis Date Arthritis BPH (benign prostatic hyperplasia) Colon cancer (HCC) 06/2024 Heart murmur Iron deficiency anemia PAST SURGICAL HISTORY Procedure Laterality Date COLONOSCOPY SCREENING CYST/MOLE REMOVAL left hand middle finger HERNIA REPAIR HX PAST SURGICAL HISTORY OF Cyst removed from left middle finger FAMILY HISTORY Problem Relation Age of Onset Heart Mother Stroke Mother Arthritis Mother Heart Father Social History Tobacco Use Smoking status: Never Smokeless tobacco: Never Vaping Use Vaping status: Never Used Substance Use Topics Alcohol use: Not Currently Drug use: Never ALLERGIES: ALLERGIES Allergen Reactions Adhesive Tape-Silic* Rash Amoxicillin Rash CURRENT OUTPATIENT MEDICATIONS: lisinopril (ZESTRIL) 10 mg tablet Take 10 mg by mouth once daily. tamsulosin (FLOMAX) 0.4 mg Take 0.4 mg by mouth once daily. finasteride (PROSCAR) 5 mg tablet Take 5 mg by mouth once daily. glucosamine HCl/chondroitin hall (GLUCOSAMINE-CHONDROITIN ORAL) Take 1 tablet by mouth once daily. multivitamin tablet Take 1 tablet by mouth once daily. fluticasone (FLONASE ALLERGY RELIEF) 50 mcg/actuation nasal spray Use 1 [place] in each nostril once daily as needed. OTC PRODUCT Standard Process Prosymbiotic: Take one tablet by mouth once daily. ascorbic acid, vitamin C, (VITAMIN C) 500 mg tablet Take 500 mg by mouth once daily. ferrous sulfate (IRON, FERROUS SULFATE,) 325 mg (65 mg iron) tablet Take 325 mg by mouth once daily. aspirin, enteric coated (ASPIRIN, ENTERIC COATED) 81 mg EC tablet Take 81 mg by mouth every other day. REVIEW OF SYSTEMS: GENERAL: No fever, night sweats, weight loss or malaise. All other reviewed and negative other than HPI. PHYSICAL EXAMINATION: VITAL SIGNS: BP 108/74 Pulse 80 Temp (Src) 97.4 (Temporal) Ht 5' 9.5" (1.77m) Wt 163 lb 8 oz (74.2kg) SpO2 98% BMI 23.81 kg/(m2). GENERAL APPEARANCE: Well appearing, in no acute distress, alert and oriented x3, well-hydrated, well nourished. I spent a total of 60 minutes on the date of the service which included preparing to see the patient, [id number] patient care, completing clinical documentation, obtaining and/or reviewing separately obtained history, counseling and educating the patient/family/caregiver, ordering medications, tests, or procedures, communicating with other HCPs (not separately reported), independently interpreting results (not separately reported), and communicating results to the patient/family/caregiver. Review of NCCN guidelines, outside records Electronically Signed: Jt Junior MD September 28, 2024 10:32 AM [facility] 09-28-2024 History of Present illness Narrative HISTORY OF PRESENT ILLNESS: Radha Meng is a 74 year old male here several months ago with MONA, referred to GI, found a transverse colon cancer. Here for follow up, feels well post op. Resection occurred 08-26-24, Dr Jonathan Valdes Preop staging negative other than chest CT showed 2 mm nodule pT3N0 G2, negative for LVI, perineural invasion, no ssx obstruction. 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 No role for adjuvant chemotherapy. 2 mm lung nodule. RECOMMENDATION/PLAN: 1. Plan surveillance with serial CEA and hepatic panel, yearly CT CAP 2. [place] term CT chest to follow up on lung nodule. 3. I will see back after labs and chest CT in 4 months or so. Written and verbal health teaching given to patient, patient verbalizes understanding and agrees with treatment plan. PAST MEDICAL HISTORY Diagnosis Date Arthritis BPH (benign prostatic hyperplasia) Colon cancer (HCC) 06/2024 Heart murmur Iron deficiency anemia PAST SURGICAL HISTORY Procedure Laterality Date COLONOSCOPY SCREENING CYST/MOLE REMOVAL left hand middle finger HERNIA REPAIR HX PAST SURGICAL HISTORY OF Cyst removed from left middle finger FAMILY HISTORY Problem Relation Age of Onset Heart Mother Stroke Mother Arthritis Mother Heart Father Social History Tobacco Use Smoking status: Never Smokeless tobacco: Never Vaping Use Vaping status: Never Used Substance Use Topics Alcohol use: Not Currently Drug use: Never ALLERGIES: ALLERGIES Allergen Reactions Adhesive Tape-Silic* Rash Amoxicillin Rash CURRENT OUTPATIENT MEDICATIONS: lisinopril (ZESTRIL) 10 mg tablet Take 10 mg by mouth once daily. tamsulosin (FLOMAX) 0.4 mg Take 0.4 mg by mouth once daily. finasteride (PROSCAR) 5 mg tablet Take 5 mg by mouth once daily. glucosamine HCl/chondroitin hall (GLUCOSAMINE-CHONDROITIN ORAL) Take 1 tablet by mouth once daily. multivitamin tablet Take 1 tablet by mouth once daily. fluticasone (FLONASE ALLERGY RELIEF) 50 mcg/actuation nasal spray Use 1 [place] in each nostril once daily as needed. OTC PRODUCT Standard Process Prosymbiotic: Take one tablet by mouth once daily. ascorbic acid, vitamin C, (VITAMIN C) 500 mg tablet Take 500 mg by mouth once daily. ferrous sulfate (IRON, FERROUS SULFATE,) 325 mg (65 mg iron) tablet Take 325 mg by mouth once daily. aspirin, enteric coated (ASPIRIN, ENTERIC COATED) 81 mg EC tablet Take 81 mg by mouth every other day. REVIEW OF SYSTEMS: GENERAL: No fever, night sweats, weight loss or malaise. All other reviewed and negative other than HPI. PHYSICAL EXAMINATION: VITAL SIGNS: BP 108/74 Pulse 80 Temp (Src) 97.4 (Temporal) Ht 5' 9.5" (1.77m) Wt 163 lb 8 oz (74.2kg) SpO2 98% BMI 23.81 kg/(m^2). GENERAL APPEARANCE: Well appearing, in no acute distress, alert and oriented x3, well-hydrated, well nourished. I spent a total of 60 minutes on the date of the service which included preparing to see the patient, [id number] patient care, completing clinical documentation, obtaining and/or reviewing separately obtained history, counseling and educating the patient/family/caregiver, ordering medications, tests, or procedures, communicating with other HCPs (not separately reported), independently interpreting results (not separately reported), and communicating results to the patient/family/caregiver. Review of NCCN guidelines, outside records Electronically Signed: Jt Junior MD September 28, 2024 10:32 AM documented in this encounter [facility] 09-16-2024 Telephone encounter Note Spoke w pt and this scheduled for 09/[address] Junior, first available. Charlie Douglas [facility] 09-16-2024 Miscellaneous Notes Spoke w pt and this scheduled for 09/[address] Junior, first available. Charlie Douglas Records received. Red chart given to PSS to schedule. This patient has been seen once by the CLINICAL REVIEWER for MONA. This is a new diagnosis for colon cancer and needs to see a physician. Aundrea Dey LPN Referral received was missing information. Additional records requested. Aundrea Dey LPN Spouse called stating patient had cancerous tumor removed from colon and Dr. Castillo was to send reports/results. Please advise on follow up appointment. documented in this encounter [facility] 09-16-2024 Telephone encounter Note Records received. Red chart given to PSS to schedule. This patient has been seen once by the CLINICAL REVIEWER for MONA. This is a new diagnosis for colon cancer and needs to see a physician. Aundrea Dey LPN [facility] 09-15-2024 Telephone encounter Note Referral received was missing information. Additional records requested. Aundrea Dey LPN [facility] 09-15-2024 Telephone encounter Note Spouse called stating patient had cancerous tumor removed from colon and Dr. Castillo was to send reports/results. Please advise on follow up appointment. [facility] Work Phone: 09-01-2024 Hospital Discharge instructions Patient Education 09/01/2024 12:08:55 Subcutaneous Injection Instructions Using a Prefilled Syringe Subcutaneous Injection Instructions Using a Prefilled Syringe A subcutaneous injection is a shot of medicine that is given into the layer of fat and tissue between skin and muscle. The injection is given with a single-use syringe that is already filled with medicine (prefilled syringe). Read the medicine guide or package insert that came with the syringe. Follow directions from the guide about how to prepare and give the injection. This is important because the directions may be different for each medicine. Use only the syringe, needle, and medicine that your health care provider prescribes. Use each prefilled syringe and needle only one time. Supplies needed: Prefilled syringe with needle. Use the needle length and size (gauge) that your health care provider or pharmacist gives to you. Alcohol wipes. Bandage. A container for syringe disposal. This may be a puncture-proof sharps container or a hard-sided plastic container that has a secure lid, such as an empty laundry detergent bottle. How to choose a site for injection Follow instructions from your health care provider about where to give an injection. Do not inject in the same spot each time. There are five main areas that can be used for injecting. These areas include: Abdomen. Avoid the area that is within 2 inches (5 cm) of your navel (umbilicus). Front of thigh. Upper, outer side of thigh. Upper, outer side of arm. Upper, outer part of buttock. How to give an injection using a prefilled syringe 1.Wash your hands with soap and water. If soap and water are not available, use hand extrusion supervisor. 2.Use an alcohol wipe to clean the site where you will be injecting the needle. Let the site air-dry. 3.Remove the plastic cover from the needle on the syringe. Do not let the needle touch anything. 4.Hold the syringe with the needle pointing up. Check the syringe for any remaining air bubbles. If there are air bubbles, flick the syringe with your finger until the air bubbles rise to the top. Then, gently push on the plunger until you can see a drop of medicine appear at the tip of the needle. This will clear any remaining air bubbles from the syringe. 5.Hold the syringe in your writing hand like a pencil. 6.Use your other hand to pinch and hold about an inch (2.5 cm) of skin. Do not directly touch the cleaned part of the skin. 7.Insert the entire needle straight into the fold of skin. The needle should be at a 90-degree angle (perpendicular) to the skin. Push the needle all the way against the skin. The needle may need to be injected at a 45-degree angle in thin adults or children who have a small amount of body fat. 8.After the needle is completely inserted into the skin, release the skin that you are pinching. Continue to hold the syringe with your writing hand. 9.Use your thumb or index finger of your writing hand to push the plunger all the way into the syringe to inject the medicine. 10.Pull the needle straight out of the skin. 11.Press and hold the alcohol wipe over the injection site until bleeding stops. Do not rub the area. 12.Cover the injection site with a bandage, if needed. How to safely throw away the supplies If you are using a syringe that does not have a safety system for shielding the needle after injection: Do not recap the needle. Place the syringe and needle in the disposal container. If your syringe has a safety system for shielding the needle after injection: Firmly push down on the plunger after you complete the injection. The protective sleeve will automatically cover the needle, and you will hear a click. The click means that the needle is safely covered. Follow the disposal regulations for the area where you live. Do not use any syringe or needle more than one time. Contact a health care provider if: You have difficulty giving the injection. You think that the injection was not given correctly. You have difficulty with any of the supplies. The medicine causes side effects. Rashes develop on the skin. A fever develops. The condition that is being treated gets worse. Get help right away if: Any of these symptoms develop after the injection is given: Difficulty breathing. Chest pain. A rash over most or all of the body. Swelling of the lips or tongue. Difficulty swallowing. Summary A subcutaneous injection is a shot of medicine that is given into the layer of fat and tissue between skin and muscle. Read the medicine guide or package insert that came with the syringe. Follow directions from the guide about how to prepare and give the injection. Follow instructions from your health care provider about where to give an injection. Contact a health care provider if you cannot give an injection, you think you gave it incorrectly, or you develop any side effects of the medicine. Get help right away if any of these develop after an injection: difficulty breathing, chest pain, rash on the body, swelling of the lips or tongue, or difficulty swallowing. This information is not intended to replace advice given to you by your health care provider. Make sure you discuss any questions you have with your health care provider. Document Released: 11/29/2011 Document Revised: 07/09/2019 Document Reviewed: 12/17/2018 [employer] Patient Education 2019 [employer]. 09/01/2024 11:44:35 Laparoscopic Colectomy, Care After Laparoscopic Colectomy, Care After This sheet gives you information about how to care for yourself after your procedure. Your health care provider may also give you more specific instructions. If you have problems or questions, contact your health care provider. What can I expect after the procedure? After your procedure, it is common to have the following: Pain in your abdomen, especially in the incision areas. You will be given medicine to control the pain. Tiredness. This is a normal part of the recovery process. Your energy level will return to normal over the next several weeks. Changes in your bowel movements, such as constipation or needing to go more often. Talk with your health care provider about how to manage this. Follow these instructions at home: Medicines Take qxer-ycp-wrytmgb and prescription medicines only as told by your health care provider. Do not drive or use heavy machinery while taking prescription pain medicine. Do not drink alcohol while taking prescription pain medicine. If you were prescribed an antibiotic medicine, use it as told by your health care provider. Do not stop using the antibiotic even if you start to feel better. Incision care Follow instructions from your health care provider about how to take care of your incision areas. Make sure you: ?Keep your incisions clean and dry. ?Wash your hands with soap and water before and after applying medicine to the areas, and before and after changing your bandage (dressing). If soap and water are not available, use hand extrusion supervisor. ?Change your dressing as told by your health care provider. ?Leave stitches (sutures), skin glue, or adhesive strips in place. These skin closures may need to stay in place for 2 weeks or longer. If adhesive strip edges start to loosen and curl up, you may trim the loose edges. Do not remove adhesive strips completely unless your health care provider tells you to do that. Do not wear tight clothing over the incisions. Tight clothing may rub and irritate the incision areas, which may cause the incisions to open. Do not take baths, swim, or use a hot tub until your health care provider approves. Ask your health care provider if you can take showers. You may only be allowed to take sponge baths for bathing. Check your incision area every day for signs of infection. Check for: ?More redness, swelling, or pain. ?More fluid or blood. ?Warmth. ?Pus or a bad smell. Activity Avoid lifting anything that is heavier than 10 lb (4.5 kg) for 2 weeks or until your health care provider says it is okay. You may resume normal activities as told by your health care provider. Ask your health care provider what activities are safe for you. Take rest breaks during the day as needed. Eating and drinking Follow instructions from your health care provider about what you can eat after surgery. To prevent or treat constipation while you are taking prescription pain medicine, your health care provider may recommend that you: ?Drink enough fluid to keep your urine clear or pale yellow. ?Take ljea-wzf-yjhfiqy or prescription medicines. ?Eat foods that are high in fiber, such as fresh fruits and vegetables, whole grains, and beans. ?Limit foods that are high in fat and processed sugars, such as fried and sweet foods. General instructions Ask your health care provider when you will need an appointment to get your sutures or lisa removed. Keep all follow-up visits as told by your health care provider. This is important. Contact a health care provider if: You have more redness, swelling, or pain around your incisions. You have more fluid or blood coming from the incisions. Your incisions feel warm to the touch. You have pus or a bad smell coming from your incisions or your dressing. You have a fever. You have an incision that breaks open (edges not staying together) after sutures or lisa have been removed. Get help right away if: You develop a rash. You have chest pain or difficulty breathing. You have pain or swelling in your legs. You feel light-headed or you faint. Your abdomen swells (becomes distended). You have nausea or vomiting. You have blood in your stool (feces). This information is not intended to replace advice given to you by your health care provider. Make sure you discuss any questions you have with your health care provider. Document Released: 10/05/2005 Document Revised: 12/05/2018 Document Reviewed: 12/17/2016 [employer] Patient Education 2020 [employer]. Follow Up Care 07/21/2024 15:44:01 With:ROSITA CAPONE Address: [address] [place] [address]- When:5 to 7 days Comments:Please call the office to schedule a hospital follow up appointment. With:CELIA CASTILLO MD, Surgery Address: [address] [place] [address]- [phone] When:09/15/2024 13:45:00 Comments:FOLLOW UP [facility] 09-01-2024 Discharge summary Date of Service 09/01/2024 Discharge Diagnosis Extended right colectomy secondary to colon mass Hospital Course This is a split shared visit for myself and Dr. Castillo. This patient is 74-year-old male who was admitted on 08/26/2024 for surgical intervention. Patient underwent a laparoscopic extended right colectomy, mobilization of splenic flexure due to colon cancer. He was then sent to the floor for recovery. Patient was monitored closely throughout hospitalization. He remained hemodynamically stable and afebrile. At time of discharge, patient had no evidence of leukocytosis, WBCs 10.0, Hgb 14.8, BMP unremarkable. All laparoscopic incisions remained intact and well-approximated. Patient's diet was slowly progressed due to bloating, patient was able to tolerate a soft diet prior to discharge. He tolerated this without any nausea or vomiting. He was passing flatus and was moving his bowels. His abdomen remains soft, nondistended, bowel sounds are present. He was passing flatus and was having loose bowel movements. Patient was able to ambulate in the room and in the hallways without difficulties. Pain was controlled with minimal pain medication. All discharge instructions were reviewed with patient prior to discharge, questions were answered. Patient verbalized understanding and was in agreement with plan of care. Discharged home in stable condition. He will follow-up with Dr. Kenney as an outpatient in 2 weeks. I have reviewed the [place] Automated Rx Reporting System (OARRS) report for this patient for refill pattern and other prescriber involvement as part of the appropriate surveillance for the provision of acute and chronic controlled medications. The report was requested and reviewed on the date of this entry, and was considered in the prescribing process. Allergies amoxicillin (Mild) Rash Band-Aid Antiseptic Rash Procedures Laparoscopic extended right colectomy, mobilization of splenic flexure Consults No qualifying data available. Imaging Results and Diagnostics US Anesthesia Block Result Date: August 26, 2024 Verified By: CLINICAL STATEMENT: IMPRESSION: Subjective Patient seen sitting up in the chair eating breakfast, no complaints. Physical Exam Vitals and Measurements T: 36.5 C (Oral) TMIN: 36.4 C (Oral) TMAX: 36.7 C (Oral) HR: 81 RR: 18 BP: 143/92 SpO2: 95% Weight Dosing Weight: 74.3 kg (08/26/24) Dosing Weight: 74.3 kg (08/26/24) General: Awake and alert and in no apparent distress. Able to answer questions and speak in full sentences. Sitting upright in the chair at bedside. HEENT: Mucous membranes moist and pink. Sclerae anicteric. PERRLA. Heart: Regular rate and rhythm. S1-S2 are present. Lungs: Chest rise symmetrical. Respirations unlabored. Clear to auscultation bilaterally. Abdomen: Soft and nontender. Nondistended. No guarding or rigidity. Bowel sounds 4 quadrants. All laparoscopic sites intact and well-approximated, no drainage, no bleeding, no signs of infection. Extremities: Freely moving. Skin: Normal color for ethnicity. No pallor or diaphoresis. No jaundice. Psychiatric: Calm and cooperative. Pending Labs and Studies WBC: 10 10^3/mcL (08/31/24 05:38:00) RBC: 5.4 10^6/mcL (08/31/24 05:38:00) Hgb: 14.8 G/dL (08/31/24 05:38:00) Hct: 44.4 % (08/31/24 05:38:00) MCV: 82.2 fL (08/31/24 05:38:00) MCH: 27.3 pg (08/31/24 05:38:00) MCHC: 33.3 G/dL (08/31/24 05:38:00) RDW: 15.5 % (08/31/24 05:38:00) Platelet: 317 10^3/mcL (08/31/24 05:38:00) MPV: 7.1 fL (08/31/24 05:38:00) Neutrophil %: 65 % (08/31/24 05:38:00) Lymphocyte %: 14.8 % Low (08/31/24 05:38:00) Monocyte %: 11.5 % (08/31/24 05:38:00) Eosinophil %: 8.1 % High (08/31/24 05:38:00) Basophil %: 0.6 % (08/31/24 05:38:00) Neutrophil, Absolute: 6.5 10^3/mcL (08/31/24 05:38:00) Lymphocyte, Absolute: 1.5 10^3/mcL (08/31/24 05:38:00) Monocyte, Absolute: 1.2 10^3/mcL (08/31/24 05:38:00) Eosinophil, Absolute: 0.8 10^3/mcL High (08/31/24 05:38:00) Basophil, Absolute: 0.1 10^3/mcL (08/31/24 05:38:00) RBC Morph: Normal (08/30/24 06:41:00) Platelet Estimate: Adequate (08/30/24 06:41:00) Anisocytosis: 1+ (08/27/24 05:18:00) Glucose Level: 88 mg/dL (08/31/24 05:38:00) Sodium Level: 139 mEq/L (08/31/24 05:38:00) Potassium Level: 4.7 mEq/L (08/31/24 05:38:00) Chloride: 101 mEq/L (08/31/24 05:38:00) CO2: 31 mEq/L (08/31/24 05:38:00) Electrolyte Balance: 7 mEq/L (08/31/24 05:38:00) BUN: 13 mg/dL (08/31/24 05:38:00) Creatinine Lvl (s): 0.91 mg/dL (08/31/24 05:38:00) Estimated Glomerular Filtration Rate: 89 ml/min/1.73sqm (08/31/24 05:38:00) BUN/Creatinine Ratio: 14.3 ratio (08/31/24 05:38:00) Calcium Lvl: 9.3 mg/dL (08/31/24 05:38:00) Blood Glucose, Capillary: 158 mg/dL High (08/30/24 12:16:00) Blood Glucose Testing Reason: Routine (08/26/24 05:41:00) Code Status Code Status - Ordered -- 08/27/24 9:35:00 EDT, Full Code, Constant Order Admission Date 08/26/2024 Discharge Date 09/01/2024 Patient Instructions Postoperative Activity/Wound Care Recommendations: No lifting or pushing objects greater than 10 pounds and no strenuous activity. Walking, using the stairs, and riding in a car are acceptable forms of activity and are encouraged in the postoperative period. Incentive spirometry use and deep breathing/coughing exercises are also encouraged after discharge to prevent respiratory complications such as pneumonia and blood clots. No driving while taking narcotic pain medication. You may shower. No tub bathing or soaking your incisions, and no pool/hot tub use until cleared by your surgeon. Wash your incisions daily with a mild soap and water and pat dry. Postoperative Medication Recommendations/Education: It is recommended that you alternate between 650-1000 mg of Tylenol and 400-600 mg Motrin (Advil or Ibuprofen) every 6 hours as needed to optimize pain control after surgery. A temporary prescription for a narcotic pain medication has been provided to you postoperatively and should only be used for breakthrough pain as narcotics increase the risk for constipation, dependency, overdose, and respiratory depression. Constipation after surgery is a very common concern for patients after discharge from the hospital. Patients are encouraged to take over the counter stool softeners (such as Colace) and over the counter laxatives (Miralax) as needed for constipation. Additional medications that can be taken for postoperative constipation include milk of magnesia, Metamucil, and Senokot. Medications Unchanged ascorbic acid (Vitamin C 500 mg oral tablet)1 tab(s) by mouth once a day. chondroitin-glucosamine (Chondroitin-Glucosamine oral tablet)1 tab(s) by mouth once a day. ferrous sulfate (ferrous sulfate 200 mg (65 mg elemental iron) oral tablet)1 tab(s) by mouth once a day. finasteride (Proscar 5 mg oral tablet)1 tab(s) by mouth once a day (in the morning). lisinopril (lisinopril 10 mg oral tablet)1 tab(s) by mouth once a day. Refills: 0. magnesium sulfate/potassium sulfate/sodium sulfate (SUPREP magnesium sulfate/potassium sulfate/sodium sulfate 1.6 g-3.13 g-17.5 g/177 mL oral liquid)as directed by mouth As Directed as needed bowel preparation. as directed, instructions given by office. Refills: 0. Misc Medication (daily defense)1 cap by mouth once a day. Misc Medication (prosymbiotic)1 cap by mouth once a day. multivitamin (Multivitamin)1 tab(s) by mouth every day. oxyCODONE (oxyCODONE 5 mg oral tablet ( IMMEDIATE release ))1 tab(s) by mouth every 6 hours as needed Pain, scale 4-6 for 5 Days. Refills: 0. tamsulosin (Flomax 0.4 mg oral capsule)1 cap by mouth once a day (in the evening). Discontinued mupirocin topical (mupirocin 2% topical ointment)1 application Topical two (2) times a day. Bilateral intranasal application twice daily x 5 days pre-surgery &/or as many days pre-surgery as possible.. Refills: 0. Follow Up Follow Up with ROSITA CAPONE DO When:Within 5 to 7 days Where:[address] [place] [address]- Additional Information: Please call the office to schedule a hospital follow up appointment. Follow Up with CELIA CASTILLO MD, Surgery When:09/15/2024 01:45 PM EDT Where:[address] [facility] [place] [address]- [phone] Additional Information: FOLLOW UP Follow Up Appointments No qualifying data available. Follow Up Labs/Studies Discharge Labs No Follow-up Labs Discharge Studies No Follow-up Studies Discharge Diet No qualifying data available. Discharge Activity No qualifying data available. Condition on Discharge Stable Discharge Disposition Home Information Provided To Patient and Time Spent 20 minutes Digitally Signed by MONICO MORENO on 09/01/2024 09:42 AM [facility] 09-01-2024 Note Discharge Instructions Thank you for allowing [facility] to assist you with your healthcare needs. The following is important discharge information regarding your hospital visit. Your Care Team ROSITA CAPONE DO Your Diagnosis Acute postoperative pain Post-op pain What to do next Instructions From Your Doctor Postoperative Activity/Wound Care Recommendations: No lifting or pushing objects greater than 10 pounds and no strenuous activity. Walking, using the stairs, and riding in a car are acceptable forms of activity and are encouraged in the postoperative period. Incentive spirometry use and deep breathing/coughing exercises are also encouraged after discharge to prevent respiratory complications such as pneumonia and blood clots. No driving while taking narcotic pain medication. You may shower. No tub bathing or soaking your incisions, and no pool/hot tub use until cleared by your surgeon. Wash your incisions daily with a mild soap and water and pat dry. Postoperative Medication Recommendations/Education: It is recommended that you alternate between 650-1000 mg of Tylenol and 400-600 mg Motrin (Advil or Ibuprofen) every 6 hours as needed to optimize pain control after surgery. A temporary prescription for a narcotic pain medication has been provided to you postoperatively and should only be used for breakthrough pain as narcotics increase the risk for constipation, dependency, overdose, and respiratory depression. Constipation after surgery is a very common concern for patients after discharge from the hospital. Patients are encouraged to take over the counter stool softeners (such as Colace) and over the counter laxatives (Miralax) as needed for constipation. Additional medications that can be taken for postoperative constipation include milk of magnesia, Metamucil, and Senokot. Scheduled Follow-Up Appointments Appointment Type When With Where Contact Information StatusGS OV Post Op 09/15/2024 01:45 PM EDT CELIA CASTILLO MD [facility] Surgery Confirmed Follow Up Appointments Follow Up with ROSITA CAPONE DO When:Within 5 to 7 days Where:[address] [place] [address]- Additional Information: Please call the office to schedule a hospital follow up appointment. Follow Up with CELIA CASTILLO MD, Surgery When:09/15/2024 01:45 PM EDT Where:[address] [facility] [place] [address]- [phone] Additional Information: FOLLOW UP The Following Activity and Diet Have Been Ordered for You Discharge Activity - Ordered -- Lifting Restricted less than 10 pounds, No lifting anything greater than 10 pounds x4 weeks and no strenuous activity. No driving while taking narcotic pain medication and for a minimum of 5 days., 09/01/24 11:32:00 EDT Discharge Diet - Ordered -- 09/01/24 11:32:00 EDT The Following Equipment Has Been Ordered for You Discharge Home Equipment Discharge Wound Care - Ordered -- Leave incision sites open to air. Allow surgical glue to fall off on its own. Shower only; no tub bathing or swimming pool use until seen in follow up., 09/01/24 11:32:00 EDT The Following Treatments Have Been Ordered for You Discharge Labs No qualifying data available. Discharge Radiology No qualifying data available. Other Therapies No qualifying data available. Post Acute Orders No qualifying data available. Someone Will Contact You Regarding These Home Health Referrals No home referrals have been ordered for you. No one will call you. Allergies amoxicillin (Mild) Rash Band-Aid Antiseptic Rash Medications Please ask your primary doctor or pharmacist before taking any other medication not listed, including over the counter drugs, herbal medications, vitamins and or supplements as they may interact with your home medications. What How Much When Why Instructions Last Dose New oxyCODONE (oxyCODONE 5 mg oral tablet ( IMMEDIATE release )) 1 tab(s) by mouth Every 6 hours as needed for for pain Acute postoperative pain Duration: 3 Days Pickup at [facility] #[id number] Unchanged ascorbic acid (Vitamin C 500 mg oral tablet) 1 tab(s) by mouth Once a day Unchanged chondroitin-glucosamine (Chondroitin-Glucosamine oral tablet) 1 tab(s) by mouth Once a day Unchanged ferrous sulfate (ferrous sulfate 200 mg (65 mg elemental iron) oral tablet) 1 tab(s) by mouth Once a day Unchanged finasteride (Proscar 5 mg oral tablet) 1 tab(s) by mouth Once a day (in the morning) Unchanged lisinopril (lisinopril 10 mg oral tablet) 1 tab(s) by mouth Once a day Pickup at [facility] #[id number] Unchanged magnesium sulfate/ potassium sulfate/ sodium sulfate (SUPREP magnesium sulfate/ potassium sulfate/ sodium sulfate 1.6 g-3.13 g-17.5 g/ 177 mL oral liquid) as directed by mouth As Directed as needed for bowel preparation as directed, instructions given by office Unchanged Misc Medication (daily defense) 1 cap by mouth Once a day Unchanged Misc Medication (prosymbiotic) 1 cap by mouth Once a day Unchanged multivitamin (Multivitamin) 1 tab(s) by mouth Every day Unchanged tamsulosin (Flomax 0.4 mg oral capsule) 1 cap by mouth Once a day (in the evening) Pharmacy Information [facility] #[id number]: [address] [place], [place] [phone] What How Much When Comments Stop Taking mupirocin topical (mupirocin 2% topical ointment) 1 application Topical Two (2) times a day Bilateral intranasal application twice daily x 5 days pre-surgery &/ or as many days pre-surgery as possible. Please take this list to your next doctor s visit. Bring all medications you take, including over the counter medications, herbals and other supplements with you to your doctor s visit. Patients and families are reminded to discard old lists and to update any records with all medication providers or retail pharmacies. Medication Leaflets oxycodone (ox i KOE done) Oxaydo, OxyCONTIN, Roxicodone, RoxyBond, Xtampza ER What is the most important information I should know about oxycodone? MISUSE OF OPIOID MEDICINE CAN CAUSE ADDICTION, OVERDOSE, OR . Fatal side effects may occur if you also drink alcohol or use other drugs that cause drowsiness or slow breathing. Using opioid medicine during may cause life-threatening withdrawal symptoms in the . What is oxycodone? Oxycodone is an opioid pain medication used to treat moderate to severe pain. Oxycodone is usually given after other treatments did not work or were not tolerated. Extended-release oxycodone is for tujuvf-cca-rnxuo treatment of severe and chronic pain that requires longer treatment. This medicine is not for use on an as-needed basis. Oxycodone may also be used for purposes not listed in this medication guide. What should I discuss with my healthcare provider before taking oxycodone? You should not use oxycodone if you are allergic to it, or if you have severe asthma, breathing problems or a stomach or bowel obstruction (including paralytic ileus). Tell your doctor if you have ever had: other breathing problems, sleep apnea (breathing that stops during sleep); a head injury, brain tumor, high pressure inside the skull, or seizures, drug or alcohol addiction, or mental illness; if you have used an MAO inhibitor in the past 14 days, such as isocarboxazid, linezolid, methylene blue injection, phenelzine, or tranylcypromine; urination problems, problems with your gallbladder, pancreas, thyroid, or adrenal gland; or liver or kidney disease. Most forms of oxycodone are not approved for use in people under 18 years old. The extended-release tablets should not be given to a child younger than 11 years old. Tell your doctor if you also use stimulant medicine, opioid medicine, herbal products, or medicine for depression, mental illness, Parkinson's disease, migraine headaches, serious infections, or prevention of nausea and vomiting. An interaction with oxycodone could cause a serious condition called serotonin syndrome. May harm an unborn baby. Tell your doctor if you are or plan to become . If you use oxycodone during , your baby could be born with life-threatening withdrawal symptoms, and may need medical treatment for several weeks. Do not breastfeed. Oxycodone in breast milk can cause life-threatening side effects in a nursing baby. Long-term oxycodone may affect fertility in men or women. could be harder to achieve while either parent is using this medicine. How should I take oxycodone? Follow the directions on your prescription label and read all medication guides or instruction sheets. Never use oxycodone in larger amounts, or for longer than prescribed. Tell your doctor if you feel an increased urge to use more of this medicine. Never share opioid medicine with another person, especially someone with a history of drug addiction. MISUSE CAN CAUSE ADDICTION, OVERDOSE, OR . Keep the medicine where others cannot get to it. Selling or giving away this medicine is against the law. Never crush a pill or use the liquid to inhale the mixture or inject it into your vein. This could result in . Your dose needs may change if you switch to a different brand, strength, or form of this medicine. Avoid medication errors by using exactly as directed on the label, or as prescribed by your doctor. Stop taking all other hdadct-czz-mxvxw opioid pain medicines when you start taking extended-release oxycodone. Swallow the extended-release forms whole to avoid exposure to a potentially fatal overdose. Do not crush, chew, break, open, or dissolve. Take the extended-release capsules with food. Read and carefully follow the instructions for use on how to prepare and take this medicine if you cannot swallow extended release capsules whole or you use a feeding tube. Ask your doctor or pharmacist if you don't understand these instructions. Measure liquid medicine with the supplied measuring device (not a kitchen spoon). You may be given other medications to help prevent or treat certain side effects. You may have withdrawal symptoms if you stop using oxycodone suddenly. Ask your doctor before stopping the medicine. Store at room temperature away from moisture and heat. Keep your medicine in a place where no one can use it improperly. Do not keep leftover medicine. Just one dose can cause in someone using it accidentally or improperly. Ask your pharmacist about a drug take-back program, or flush the unused medicine down the toilet. What happens if I miss a dose? Since oxycodone is used for pain, you are not likely to miss a dose. Skip any missed dose if it is almost time for your next dose. Do not use two doses at one time. What happens if I overdose? Seek emergency medical attention or call the Poison Help line at . An overdose can be fatal, especially in a child or person using opioid medicine without a prescription. Your doctor may recommend you get naloxone (a medicine to reverse an opioid overdose) and keep it with you at all times. A person caring for you can give the naloxone if you stop breathing or don't wake up. Your caregiver must still get emergency medical help and may need to perform CPR (cardiopulmonary resuscitation) on you while waiting for help to arrive. Anyone can buy naloxone from a pharmacy or local health department. Make sure any person caring for you knows where you keep naloxone and how to use it. What should I avoid while taking oxycodone? Do not drink alcohol or any products that contain alcohol. Dangerous side effects or could occur. Avoid driving or hazardous activity until you know how this medicine will affect you. Dizziness or drowsiness can causing falls, accidents, or severe injuries. Also avoid getting up too fast from a sitting or lying position, or you may feel dizzy. What are the possible side effects of oxycodone? Get emergency medical help if you have signs of an allergic reaction: hives, difficult breathing, swelling of your face, lips, tongue, or throat. Opioid medicine can slow or stop your breathing, and may occur, especially if you drink alcohol or use other drugs that cause drowsiness or slow breathing. A person caring for you should give naloxone and/or seek emergency medical attention if you have slow breathing with long pauses, blue colored lips, or if you are hard to wake up. Call your doctor at once if you have: slow heart rate, weak pulse, fainting, slow breathing (breathing may stop); chest pain, fast or pounding heartbeats; a seizure, extreme drowsiness; or decreased adrenal gland hormones--nausea, vomiting, stomach pain, loss of appetite, feeling tired or light-headed, muscle or joint pain, skin discoloration, craving salty foods. Serious breathing problems may be more likely in older adults and in those who are debilitated or have wasting syndrome or chronic breathing disorders. Seek medical attention right away if you have symptoms of serotonin syndrome, such as: agitation, hallucinations, fever, sweating, shivering, fast heart rate, muscle stiffness, twitching, loss of coordination, nausea, vomiting, or diarrhea. Common side effects may include: sleep problems (insomnia), itching; drowsiness, headache, dizziness, tiredness; or constipation, stomach pain, nausea, vomiting. This is not a complete list of side effects and others may occur. Call your doctor for medical advice about side effects. You may report side effects to FDA at 3-706-RKS-0763. What other drugs will affect oxycodone? You may have a fatal oxycodone overdose if you start or stop using certain medicines. Tell your doctor about all your medications. Tell your doctor about all your medications especially if you use medicine to treat HIV, antibiotic, antifungal medication, or seizure medication. Many other drugs can be dangerous when used with opioid medicine. Tell your doctor if you also use: medicine for allergies, asthma, blood pressure, motion sickness, irritable bowel, or overactive bladder; other opioid medicines, a benzodiazepine sedative like Valium, Klonopin, or Xanax; sleep medicine, muscle relaxers, or other drugs that make you drowsy; or drugs that affect serotonin, such as antidepressants, stimulants, or medicine for migraines or Parkinson's disease. This list is not complete and many other drugs may affect oxycodone. This includes prescription and zrbr-pet-nmxfzca medicines, vitamins, and herbal products. Not all possible drug interactions are listed here. Where can I get more information? Your doctor or pharmacist can provide more information about oxycodone. Remember, keep this and all other medicines out of the reach of children, never share your medicines with others, and use this medication only for the indication prescribed. Every effort has been made to ensure that the information provided by [employer]. ('[employer]') is accurate, up-to-date, and complete, but no guarantee is made to that effect. Drug information contained herein may be time sensitive. [employer] information has been compiled for use by healthcare practitioners and consumers in the [place] and therefore [employer] does not warrant that uses outside of the [place] are appropriate, unless specifically indicated otherwise. [employer] drug information does not endorse drugs, diagnose patients or recommend therapy. [employer] drug information is an informational resource designed to assist licensed healthcare practitioners in caring for their patients and/or to serve consumers viewing this service as a supplement to, and not a substitute for, the expertise, skill, knowledge and judgment of healthcare practitioners. The absence of a warning for a given drug or drug combination in no way should be construed to indicate that the drug or drug combination is safe, effective or appropriate for any given patient. [employer] does not assume any responsibility for any aspect of healthcare administered with the aid of information [employer] provides. The information contained herein is not intended to cover all possible uses, directions, precautions, warnings, drug interactions, allergic reactions, or adverse effects. If you have questions about the drugs you are taking, check with your doctor, nurse or pharmacist. Copyright 0998-0764 [employer]. Version: 17.. Revision Date: 04/23/2023. Education Materials Laparoscopic Colectomy, Care After This sheet gives you information about how to care for yourself after your procedure. Your health care provider may also give you more specific instructions. If you have problems or questions, contact your health care provider. What can I expect after the procedure? After your procedure, it is common to have the following: Pain in your abdomen, especially in the incision areas. You will be given medicine to control the pain. Tiredness. This is a normal part of the recovery process. Your energy level will return to normal over the next several weeks. Changes in your bowel movements, such as constipation or needing to go more often. Talk with your health care provider about how to manage this. Follow these instructions at home: Medicines Take kual-aed-doflfwg and prescription medicines only as told by your health care provider. Do not drive or use heavy machinery while taking prescription pain medicine. Do not drink alcohol while taking prescription pain medicine. If you were prescribed an antibiotic medicine, use it as told by your health care provider. Do not stop using the antibiotic even if you start to feel better. Incision care Follow instructions from your health care provider about how to take care of your incision areas. Make sure you: ? Keep your incisions clean and dry. ? Wash your hands with soap and water before and after applying medicine to the areas, and before and after changing your bandage (dressing). If soap and water are not available, use hand extrusion supervisor. ? Change your dressing as told by your health care provider. ? Leave stitches (sutures), skin glue, or adhesive strips in place. These skin closures may need to stay in place for 2 weeks or longer. If adhesive strip edges start to loosen and curl up, you may trim the loose edges. Do not remove adhesive strips completely unless your health care provider tells you to do that. Do not wear tight clothing over the incisions. Tight clothing may rub and irritate the incision areas, which may cause the incisions to open. Do not take baths, swim, or use a hot tub until your health care provider approves. Ask your health care provider if you can take showers. You may only be allowed to take sponge baths for bathing. Check your incision area every day for signs of infection. Check for: ? More redness, swelling, or pain. ? More fluid or blood. ? Warmth. ? Pus or a bad smell. Activity Avoid lifting anything that is heavier than 10 lb (4.5 kg) for 2 weeks or until your health care provider says it is okay. You may resume normal activities as told by your health care provider. Ask your health care provider what activities are safe for you. Take rest breaks during the day as needed. Eating and drinking Follow instructions from your health care provider about what you can eat after surgery. To prevent or treat constipation while you are taking prescription pain medicine, your health care provider may recommend that you: ? Drink enough fluid to keep your urine clear or pale yellow. ? Take uwdl-iwi-ganhfte or prescription medicines. ? Eat foods that are high in fiber, such as fresh fruits and vegetables, whole grains, and beans. ? Limit foods that are high in fat and processed sugars, such as fried and sweet foods. General instructions Ask your health care provider when you will need an appointment to get your sutures or lisa removed. Keep all follow-up visits as told by your health care provider. This is important. Contact a health care provider if: You have more redness, swelling, or pain around your incisions. You have more fluid or blood coming from the incisions. Your incisions feel warm to the touch. You have pus or a bad smell coming from your incisions or your dressing. You have a fever. You have an incision that breaks open (edges not staying together) after sutures or lisa have been removed. Get help right away if: You develop a rash. You have chest pain or difficulty breathing. You have pain or swelling in your legs. You feel light-headed or you faint. Your abdomen swells (becomes distended). You have nausea or vomiting. You have blood in your stool (feces). This information is not intended to replace advice given to you by your health care provider. Make sure you discuss any questions you have with your health care provider. Document Released: 10/05/2005 Document Revised: 12/05/2018 Document Reviewed: 12/17/2016 [employer] Patient Education 2020 [employer] Additional Information VACCINATE! IT SAVES LIVES! Members of the community who have not yet received the COVID-19 vaccine and would like to receive it can visit one of [facility] vaccine clinics. There are many vaccine clinic locations within the [facility]. For locations and available times, please visit [email or web address].[place] .[email or web address] It is important to note that some COVID mobile vaccine clinics are held outdoors and may be canceled in rainy or stormy conditions. To learn more about pediatric vaccinations (ages 5-11), we invite you to visit the [facility] webpage. [email or web address] [email or web address]-Gwvot-[email or web address]-Frequently -[email or web address]-Questions.html To learn more about the COVID-19 vaccine, we invite you to visit the CDC website for a list of frequently asked questions.https://www.cdc.gov/coron avirus/2019-ncov/vaccines/faq.html [facility] Patient Portal Access Instructions: Stay connected with your healthcare team and access your personal medical information anytime with the [facility] Patient Portal. Please follow the directions below to create your [facility] account: 1.Access the email account you provided upon registration to the hospital/physician office.2.Look for an invitation email from [facility].3.Open the email and access the invitation link: Accept Invitation to [facility].4.Fill in the required granados to create your account. To access your account, visit [email or web address]. Click the blue button labeled "Access Patient Portal" and then log in with the username and password that you created in the steps above. You will be able to view your test results, lab results, a summary of your visits, upcoming appointments and more. There is also a convenient messaging option where you can send secure messages to your provider. In addition, you will have the ability to download any documents or summaries to your computer and/or send the information securely to a physician. Remember that your healthcare information is confidential, so carefully consider who you will allow to register on the [facility] Patient Portal for access to your information. You can also access the [facility] Patient Portal on the [facility] rashaun. Simply click on "Patient Portal" and then log into your account. If you would like to receive a full copy of your medical records, please contact the [facility] Medical Records Department by calling [phone], Saturday through Saturday between 8 a.m. and 4:30 p.m. HOW TO SAFELY DISPOSE OF PRESCRIPTION MEDICATIONS Please use one of the following methods to safely dispose of your unused medications. 1.Use a drug disposal kit: the drug disposal pouch allows you to safely discard your old and unused drugs. Ask your nurse to give you one when you are discharged.2.Visit a local take-back location: Many local pharmacies and police departments have programs that collect old and unwanted prescription drugs. Call your local pharmacy or go to http://bit.[employer]/4Z3Th7t to find one close to you.3.Make use of household items: Use cat litter or old coffee grounds to dispose medications if other options are not available. Mix your drugs with these household products, seal them in an airtight container and throw it into the garbage. Call [facility]: [phone] to be sure your drugs can be disposed of in this way. Some medicines may require a different approach.4.Never flush your medications down the toilet. IF YOU HAVE BEEN PRESCRIBED AN OPIOID FOR PAIN If you have been prescribed an opioid (such as hydrocodone, oxycodone or morphine), it is critical to understand the possible side effects and risks of opioid pain medications. Even when taken as directed, opioids can have several side effects including: Tolerance, meaning you might need to take more of a medication for the same pain relief. Nausea, vomiting and/or constipation. Sleepiness, dizziness, dry mouth, confusion, depression or itching. Physical dependence, meaning you have withdrawal symptoms when a medication is stopped, can develop within a few days. KNOW YOUR RESPONSIBILITIES It is important to know exactly how much and how often to take the opioid pain medications you are prescribed. Never take opioids in higher amounts or more often than prescribed. Do not combine opioids with alcohol or other drugs that cause drowsiness, such as benzodiazepines, also known as benzos, including diazepam and alprazolam, muscle relaxants or sleep aids. Never sell or share prescription opioids. This is illegal. Store opioids in a secure place and out of reach of others (including children, family, friends and visitors). The last page of this document has been signed and retained as a CHART COPY. Signatures Patient Education Materials Laparoscopic Colectomy, Care After Medication Leaflets oxycodone My discharge plan and instructions have been reviewed and explained to me and IYUSRA DICK E understand my current condition and have read and understand these discharge instructions. I have received a written copy of the plan/instructions. If I have questions, I am aware that I should contact my doctor. 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 Castillo. This patient is 74-year-old male who was admitted on 08/26/2024 for surgical intervention. Patient underwent a laparoscopic extended right colectomy, mobilization of splenic flexure due to colon cancer. He was then sent to the floor for recovery. Patient was monitored closely throughout hospitalization. He remained hemodynamically stable and afebrile. At time of discharge, patient had no evidence of leukocytosis, WBCs 10.0, Hgb 14.8, BMP unremarkable. All laparoscopic incisions remained intact and well-approximated. Patient's diet was slowly progressed due to bloating, patient was able to tolerate a soft diet prior to discharge. He tolerated this without any nausea or vomiting. He was passing flatus and was moving his bowels. His abdomen remains soft, nondistended, bowel sounds are present. He was passing flatus and was having loose bowel movements. Patient was able to ambulate in the room and in the hallways without difficulties. Pain was controlled with minimal pain medication. All discharge instructions were reviewed with patient prior to discharge, questions were answered. Patient verbalized understanding and was in agreement with plan of care. Discharged home in stable condition. He will follow-up with Dr. Kenney as an outpatient in 2 weeks. I have reviewed the [place] Automated Rx Reporting System (OARRS) report for this patient for refill pattern and other prescriber involvement as part of the appropriate surveillance for the provision of acute and chronic controlled medications. The report was requested and reviewed on the date of this entry, and was considered in the prescribing process. Allergies amoxicillin (Mild) Rash Band-Aid Antiseptic Rash Procedures Laparoscopic extended right colectomy, mobilization of splenic flexure Consults No qualifying data available. Imaging Results and Diagnostics US Anesthesia Block Result Date: August 26, 2024 Verified By: CLINICAL STATEMENT: IMPRESSION: Subjective Patient seen sitting up in the chair eating breakfast, no complaints. Physical Exam Vitals and Measurements T: 36.5 C (Oral) TMIN: 36.4 C (Oral) TMAX: 36.7 C (Oral) HR: 81 RR: 18 BP: 143/92 SpO2: 95% Weight Dosing Weight: 74.3 kg (08/26/24) Dosing Weight: 74.3 kg (08/26/24) General: Awake and alert and in no apparent distress. Able to answer questions and speak in full sentences. Sitting upright in the chair at bedside. HEENT: Mucous membranes moist and pink. Sclerae anicteric. PERRLA. Heart: Regular rate and rhythm. S1-S2 are present. Lungs: Chest rise symmetrical. Respirations unlabored. Clear to auscultation bilaterally. Abdomen: Soft and nontender. Nondistended. No guarding or rigidity. Bowel sounds 4 quadrants. All laparoscopic sites intact and well-approximated, no drainage, no bleeding, no signs of infection. Extremities: Freely moving. Skin: Normal color for ethnicity. No pallor or diaphoresis. No jaundice. Psychiatric: Calm and cooperative. Pending Labs and Studies WBC: 10 10^3/mcL (08/31/24 05:38:00) RBC: 5.4 10^6/mcL (08/31/24 05:38:00) Hgb: 14.8 G/dL (08/31/24 05:38:00) Hct: 44.4 % (08/31/24 05:38:00) MCV: 82.2 fL (08/31/24 05:38:00) MCH: 27.3 pg (08/31/24 05:38:00) MCHC: 33.3 G/dL (08/31/24 05:38:00) RDW: 15.5 % (08/31/24 05:38:00) Platelet: 317 10^3/mcL (08/31/24 05:38:00) MPV: 7.1 fL (08/31/24 05:38:00) Neutrophil %: 65 % (08/31/24 05:38:00) Lymphocyte %: 14.8 % Low (08/31/24 05:38:00) Monocyte %: 11.5 % (08/31/24 05:38:00) Eosinophil %: 8.1 % High (08/31/24 05:38:00) Basophil %: 0.6 % (06/02/25 05:38:00) Neutrophil, Absolute: 6.5 10^3/mcL (08/31/24 05:38:00) Lymphocyte, Absolute: 1.5 10^3/mcL (08/31/24 05:38:00) Monocyte, Absolute: 1.2 10^3/mcL (08/31/24 05:38:00) Eosinophil, Absolute: 0.8 10^3/mcL High (08/31/24 05:38:00) Basophil, Absolute: 0.1 10^3/mcL (08/31/24 05:38:00) RBC Morph: Normal (08/30/24 06:41:00) Platelet Estimate: Adequate (08/30/24 06:41:00) Anisocytosis: 1+ (08/27/24 05:18:00) Glucose Level: 88 mg/dL (08/31/24 05:38:00) Sodium Level: 139 mEq/L (08/31/24 05:38:00) Potassium Level: 4.7 mEq/L (08/31/24 05:38:00) Chloride: 101 mEq/L (08/31/24 05:38:00) CO2: 31 mEq/L (08/31/24 05:38:00) Electrolyte Balance: 7 mEq/L (08/31/24 05:38:00) BUN: 13 mg/dL (08/31/24 05:38:00) Creatinine Lvl (s): 0.91 mg/dL (08/31/24 05:38:00) Estimated Glomerular Filtration Rate: 89 ml/min/1.73sqm (08/31/24 05:38:00) BUN/Creatinine Ratio: 14.3 ratio (08/31/24 05:38:00) Calcium Lvl: 9.3 mg/dL (08/31/24 05:38:00) Blood Glucose, Capillary: 158 mg/dL High (08/30/24 12:16:00) Blood Glucose Testing Reason: Routine (08/26/24 05:41:00) Code Status Code Status - Ordered -- 08/27/24 9:35:00 EDT, Full Code, Constant Order Admission Date 08/26/2024 Discharge Date 09/01/2024 Patient Instructions Postoperative Activity/Wound Care Recommendations: No lifting or pushing objects greater than 10 pounds and no strenuous activity. Walking, using the stairs, and riding in a car are acceptable forms of activity and are encouraged in the postoperative period. Incentive spirometry use and deep breathing/coughing exercises are also encouraged after discharge to prevent respiratory complications such as pneumonia and blood clots. No driving while taking narcotic pain medication. You may shower. No tub bathing or soaking your incisions, and no pool/hot tub use until cleared by your surgeon. Wash your incisions daily with a mild soap and water and pat dry. Postoperative Medication Recommendations/Education: It is recommended that you alternate between 650-1000 mg of Tylenol and 400-600 mg Motrin (Advil or Ibuprofen) every 6 hours as needed to optimize pain control after surgery. A temporary prescription for a narcotic pain medication has been provided to you postoperatively and should only be used for breakthrough pain as narcotics increase the risk for constipation, dependency, overdose, and respiratory depression. Constipation after surgery is a very common concern for patients after discharge from the hospital. Patients are encouraged to take over the counter stool softeners (such as Colace) and over the counter laxatives (Miralax) as needed for constipation. Additional medications that can be taken for postoperative constipation include milk of magnesia, Metamucil, and Senokot. Medications Unchanged ascorbic acid (Vitamin C 500 mg oral tablet)1 tab(s) by mouth once a day. chondroitin-glucosamine (Chondroitin-Glucosamine oral tablet)1 tab(s) by mouth once a day. ferrous sulfate (ferrous sulfate 200 mg (65 mg elemental iron) oral tablet)1 tab(s) by mouth once a day. finasteride (Proscar 5 mg oral tablet)1 tab(s) by mouth once a day (in the morning). lisinopril (lisinopril 10 mg oral tablet)1 tab(s) by mouth once a day. Refills: 0. magnesium sulfate/potassium sulfate/sodium sulfate (SUPREP magnesium sulfate/potassium sulfate/sodium sulfate 1.6 g-3.13 g-17.5 g/177 mL oral liquid)as directed by mouth As Directed as needed bowel preparation. as directed, instructions given by office. Refills: 0. Misc Medication (daily defense)1 cap by mouth once a day. Misc Medication (prosymbiotic)1 cap by mouth once a day. multivitamin (Multivitamin)1 tab(s) by mouth every day. oxyCODONE (oxyCODONE 5 mg oral tablet ( IMMEDIATE release ))1 tab(s) by mouth every 6 hours as needed Pain, scale 4-6 for 5 Days. Refills: 0. tamsulosin (Flomax 0.4 mg oral capsule)1 cap by mouth once a day (in the evening). Discontinued mupirocin topical (mupirocin 2% topical ointment)1 application Topical two (2) times a day. Bilateral intranasal application twice daily x 5 days pre-surgery &/or as many days pre-surgery as possible.. Refills: 0. Follow Up Follow Up with ROSITA CAPONE DO When:Within 5 to 7 days Where:[address] [place] [address]- Additional Information: Please call the office to schedule a hospital follow up appointment. Follow Up with CELIA CASTILLO MD, Surgery When:09/15/2024 01:45 PM EDT Where:[address] [facility] [address] [place] [address]- [phone] Additional Information: FOLLOW UP Follow Up Appointments No qualifying data available. Follow Up Labs/Studies Discharge Labs No Follow-up Labs Discharge Studies No Follow-up Studies Discharge Diet No qualifying data available. Discharge Activity No qualifying data available. Condition on Discharge Stable Discharge Disposition Home Information Provided To Patient and Time Spent 20 minutes Digitally Signed by MONICO MORENO on 09/01/2024 09:42 AM [facility] 08-31-2024 Nurse Progress note student's documentation was reviewed, and all medications were verified prior to administration. Digitally Signed by MARIAH Cortes on 08/31/2024 05:27 PM [facility] 08-31-2024 Surgery Hospital Progress note Date of Service 08/31/2024 Chief Complaint Abdominal distention Subjective Patient sitting up comfortably in chair this morning. Denies any nausea or vomiting overnight. Tolerating clear liquids currently. States he has had multiple bowel movements but denies passing much flatus. Continues to feel bloated. Objective Vitals and Measurements T: 36.4 C (Oral) TMIN: 36.4 C (Oral) TMAX: 36.9 C (Oral) HR: 82 RR: 16 BP: 138/90 SpO2: 93% Intake and Output 7AM Yesterday to 7AM Today Intake and Output (Last 24 hours) Intake Oral Intake 520.00 Administration Information 1800.00 Output Urine Voided 1100.00 Emesis 200.00 Stool Count 2.00 Total Summary Total Intake 2320.00 Total Output 1300.00 Fluid Balance 1020.00 Physical Exam General -alert and oriented x4, answers questions appropriately. In no acute distress. HEENT -normocephalic. Cardiovascular -S1-S2, regular rate and rhythm. Respiratory -easy unlabored respirations. Chest rise symmetrical. Abdomen/GI -soft, mild incisional tenderness, abdominal incisions well-approximated with surgical glue in place, mild surrounding ecchymosis, bowel sounds present. Nondistended. Musculoskeletal -ORDOÑEZ x4. Psychiatric -calm and cooperative. Skin -normal for ethnicity. Weight Dosing Weight: 74.3 kg (08/26/24) Dosing Weight: 74.3 kg (08/26/24) Medications Medications (15) Active Scheduled: (8) acetaminophen 500 mg Tablet 1,000 mg 2 tab(s), Oral, q6h alvimopan 12 mg capsule 12 mg 1 cap(s), Oral, BID enoxaparin 40 mg/ 0.4mL syringe 40 mg 0.4 mL, Subcutaneous, qDay finasteride 5 mg tablet 5 mg 1 tab(s), Oral, qAM lidocaine 1% (MPF) 2 mL vial pf 2.5 mg 0.25 mL, Intradermal, prep pharm lisinopril 10 mg tablet 10 mg 1 tab(s), Oral, qDay pantoprazole 40 mg VIAL 40 mg, IV Push, BIDAC tamsulosin 0.4 mg Capsule 0.4 mg 1 cap(s), Oral, qPM Continuous: (1) Lactated Ringers 1,000 mL 1,000 mL, Intravenous, 75 mL/hr PRN: (6) ondansetron 2 mg/ 1 mL 2 mL INJ 4 mg 2 mL, IV Push, q4h ondansetron 4 mg tablet 4 mg 1 tab(s), Oral, q6h oxyCODONE 10 mg Tab (Immediate Release) 10 mg 1 tab(s), Oral, q4h oxycodone 5 mg tablet (immediate release) 5 mg 1 tab(s), Oral, q4h prochlorperazine 10 mg/2 mL vial 5 mg 1 mL, IV Push, q6h promethazine 25 mg Tablet 25 mg 1 tab(s), Oral, q6h Lab Results 08/31 05:38 WBC: 10.0 Hgb: 14.8 Hct: 44.4 Platelet: 317 Neutrophil %: 65.0 Glucose Level: 88 Sodium Level: 139 Potassium Level: 4.7 BUN: 13.0 Creatinine Lvl (s): 0.91 08/30 06:41 WBC: 11.4 H Hgb: 14.6 Hct: 43.8 Platelet: 317 Neutrophil %: 71.8 Glucose Level: 105 Sodium Level: 137 Potassium Level: 3.8 BUN: 17.0 Creatinine Lvl (s): 0.87 EKG No qualifying data available. Assessment/Plan Post-op pain 74-year-old male who is postoperative day #5 status post laparoscopic extended right colectomy secondary to colon mass. Now with postoperative adynamic ileus related to recent surgery, immobility and narcotics usage. Patient is feeling somewhat better this morning. Has had 2 bowel movements over the past 24 hours semiformed. He continues to feel bloated but denies any further emesis. Tolerating clear liquids. He remains hemodynamically stable and afebrile. White count normal at 10 with a stable hemoglobin of 14. Recent electrolytes reviewed. DOROETO reviewed. Plan: -Will advance to a soft diet this morning. -Continue to encourage mobilization with incentive spirometer use. -Anticipate discharge home once distention improves and he is tolerating a diet. -Plan of care reviewed with patient and family at bedside. He verbalized understanding. Case discussed with Dr. Castillo, see addendum to follow. Digitally Signed by GALI VALDES on 08/31/2024 09:53 AM [facility] 08-31-2024 [facility] Hospital Progress note Date of Service 08/31/2024 Chief Complaint Abdominal distention Subjective Patient sitting up comfortably in chair this morning. Denies any nausea or vomiting overnight. Tolerating clear liquids currently. States he has had multiple bowel movements but denies passing much flatus. Continues to feel bloated. Objective Vitals and Measurements T: 36.4 C (Oral) TMIN: 36.4 C (Oral) TMAX: 36.9 C (Oral) HR: 82 RR: 16 BP: 138/90 SpO2: 93% Intake and Output 7AM Yesterday to 7AM Today Intake and Output (Last 24 hours) Intake Oral Intake 520.00 Administration Information 1800.00 Output Urine Voided 1100.00 Emesis 200.00 Stool Count 2.00 Total Summary Total Intake 2320.00 Total Output 1300.00 Fluid Balance 1020.00 Physical Exam General -alert and oriented x4, answers questions appropriately. In no acute distress. HEENT -normocephalic. Cardiovascular -S1-S2, regular rate and rhythm. Respiratory -easy unlabored respirations. Chest rise symmetrical. Abdomen/GI -soft, mild incisional tenderness, abdominal incisions well-approximated with surgical glue in place, mild surrounding ecchymosis, bowel sounds present. Nondistended. Musculoskeletal -ORDOÑEZ x4. Psychiatric -calm and cooperative. Skin -normal for ethnicity. Weight Dosing Weight: 74.3 kg (08/26/24) Dosing Weight: 74.3 kg (08/26/24) Medications Medications (15) Active Scheduled: (8) acetaminophen 500 mg Tablet 1,000 mg 2 tab(s), Oral, q6h alvimopan 12 mg capsule 12 mg 1 cap(s), Oral, BID enoxaparin 40 mg/ 0.4mL syringe 40 mg 0.4 mL, Subcutaneous, qDay finasteride 5 mg tablet 5 mg 1 tab(s), Oral, qAM lidocaine 1% (MPF) 2 mL vial pf 2.5 mg 0.25 mL, Intradermal, prep pharm lisinopril 10 mg tablet 10 mg 1 tab(s), Oral, qDay pantoprazole 40 mg VIAL 40 mg, IV Push, BIDAC tamsulosin 0.4 mg Capsule 0.4 mg 1 cap(s), Oral, qPM Continuous: (1) Lactated Ringers 1,000 mL 1,000 mL, Intravenous, 75 mL/hr PRN: (6) ondansetron 2 mg/ 1 mL 2 mL INJ 4 mg 2 mL, IV Push, q4h ondansetron 4 mg tablet 4 mg 1 tab(s), Oral, q6h oxyCODONE 10 mg Tab (Immediate Release) 10 mg 1 tab(s), Oral, q4h oxycodone 5 mg tablet (immediate release) 5 mg 1 tab(s), Oral, q4h prochlorperazine 10 mg/2 mL vial 5 mg 1 mL, IV Push, q6h promethazine 25 mg Tablet 25 mg 1 tab(s), Oral, q6h Lab Results 08/31 05:38 WBC: 10.0 Hgb: 14.8 Hct: 44.4 Platelet: 317 Neutrophil %: 65.0 Glucose Level: 88 Sodium Level: 139 Potassium Level: 4.7 BUN: 13.0 Creatinine Lvl (s): 0.91 08/30 06:41 WBC: 11.4 H Hgb: 14.6 Hct: 43.8 Platelet: 317 Neutrophil %: 71.8 Glucose Level: 105 Sodium Level: 137 Potassium Level: 3.8 BUN: 17.0 Creatinine Lvl (s): 0.87 EKG No qualifying data available. Assessment/Plan Post-op pain 74-year-old male who is postoperative day #5 status post laparoscopic extended right colectomy secondary to colon mass. Now with postoperative adynamic ileus related to recent surgery, immobility and narcotics usage. Patient is feeling somewhat better this morning. Has had 2 bowel movements over the past 24 hours semiformed. He continues to feel bloated but denies any further emesis. Tolerating clear liquids. He remains hemodynamically stable and afebrile. White count normal at 10 with a stable hemoglobin of 14. Recent electrolytes reviewed. DOROTEO reviewed. Plan: -Will advance to a soft diet this morning. -Continue to encourage mobilization with incentive spirometer use. -Anticipate discharge home once distention improves and he is tolerating a diet. -Plan of care reviewed with patient and family at bedside. He verbalized understanding. Case discussed with Dr. Castillo, see addendum to follow. Digitally Signed by GALI VALDES on 08/31/2024 09:53 AM [facility] 08-30-2024 [facility] Hospital Progress note Date of Service 08/30/2024 Chief Complaint Postoperative Emesis x1 Subjective Patient seen resting supine in bed this morning. He reported 1 episode of emesis over the last 24 hours. He continues to complain of abdominal bloating. He denied nausea this morning. His appetite is poor. He is passing flatus and has moved his bowels over the last 24 hours. Objective Vitals and Measurements T: 36.6 C (Oral) TMIN: 36.4 C (Oral) TMAX: 36.8 C (Oral) HR: 88 (Monitored) RR: 18 BP: 158/95 SpO2: 94% Intake and Output 7AM Yesterday to 7AM Today Intake and Output (Last 24 hours) Intake Oral Intake 1070.00 Administration Information 920.00 Output Urine Voided 750.00 Emesis 150.00 Stool Count 1.00 Urine Count 1.00 Total Summary Total Intake 1990.00 Total Output 900.00 Fluid Balance 1090.00 Physical Exam General: Awake, alert and oriented x4. In no apparent distress. Able to answer questions appropriately and speak in full sentences. Supine in bed. HEENT: Sclera anicteric. Heart: S1 and S2 present. Lungs: Chest rise symmetrical. Respirations unlabored. Abdomen: Rounded/distended and nontender with palpation. Laparoscopic incision sites approximated with surgical glue. Extremities: Freely moving. Psychiatric: Calm and cooperative. Weight Dosing Weight: 74.3 kg (08/26/24) Dosing Weight: 74.3 kg (08/26/24) Medications Medications (14) Active Scheduled: (7) acetaminophen 500 mg Tablet 1,000 mg 2 tab(s), Oral, q6h alvimopan 12 mg capsule 12 mg 1 cap(s), Oral, BID enoxaparin 40 mg/ 0.4mL syringe 40 mg 0.4 mL, Subcutaneous, qDay finasteride 5 mg tablet 5 mg 1 tab(s), Oral, qAM lidocaine 1% (MPF) 2 mL vial pf 2.5 mg 0.25 mL, Intradermal, prep pharm lisinopril 10 mg tablet 10 mg 1 tab(s), Oral, qDay tamsulosin 0.4 mg Capsule 0.4 mg 1 cap(s), Oral, qPM Continuous: (1) Lactated Ringers 1,000 mL 1,000 mL, Intravenous, 75 mL/hr PRN: (6) ondansetron 2 mg/ 1 mL 2 mL INJ 4 mg 2 mL, IV Push, q4h ondansetron 4 mg tablet 4 mg 1 tab(s), Oral, q6h oxyCODONE 10 mg Tab (Immediate Release) 10 mg 1 tab(s), Oral, q4h oxycodone 5 mg tablet (immediate release) 5 mg 1 tab(s), Oral, q4h prochlorperazine 10 mg/2 mL vial 5 mg 1 mL, IV Push, q6h promethazine 25 mg Tablet 25 mg 1 tab(s), Oral, q6h Lab Results 08/30 06:41 WBC: 11.4 H Hgb: 14.6 Hct: 43.8 Platelet: 317 Glucose Level: 105 Sodium Level: 137 Potassium Level: 3.8 BUN: 17.0 Creatinine Lvl (s): 0.87 08/29 04:03 WBC: 12.4 H Hgb: 15.1 Hct: 45.7 Platelet: 284 Neutrophil %: 85.7 H Glucose Level: 117 H Sodium Level: 138 Potassium Level: 4.2 BUN: 13.0 Creatinine Lvl (s): 0.87 EKG No qualifying data available. Assessment/Plan Post-op pain This patient is a 74-year-old male who is postoperative day #4 following a laparoscopic extended right colectomy with mobilization of the splenic flexure and ICG angiography secondary to colon cancer. On examination this morning, he was seen resting supine in bed. He did not appear toxic or in any acute distress. He reported 1 episode of emesis over the last 24 hours. He continues to complain of abdominal distention. He denied current nausea and vomiting. He has been passing flatus and has moved his bowels over the last 24 hours. His abdomen was distended but nontender. Incision sites were approximated with surgical glue. Morning laboratory data, vital signs and I/O have been reviewed. His leukocytosis is downward trending this morning. Electrolytes were within normal limits. Plan: 1. Downgrade patient to a clear liquid diet 2. Continue IV fluid hydration 3. As needed antiemetics 4. Continue to encourage mobilization in the room/going up to the chair for all meals 5. Encouraged hourly incentive spirometry use and coughing and deep breathing exercises 6. Discussed with the patient that we will continue to monitor his GI function and abdominal exams The case has been discussed with Dr. Amor. Please see his addendum for further details. Digitally Signed by GIOVANY HERZOG on 08/30/2024 09:47 AM [facility] 08-30-2024 Surgery Hospital Progress note Date of Service 08/30/2024 Chief Complaint Postoperative Emesis x1 Subjective Patient seen resting supine in bed this morning. He reported 1 episode of emesis over the last 24 hours. He continues to complain of abdominal bloating. He denied nausea this morning. His appetite is poor. He is passing flatus and has moved his bowels over the last 24 hours. Objective Vitals and Measurements T: 36.6 C (Oral) TMIN: 36.4 C (Oral) TMAX: 36.8 C (Oral) HR: 88 (Monitored) RR: 18 BP: 158/95 SpO2: 94% Intake and Output 7AM Yesterday to 7AM Today Intake and Output (Last 24 hours) Intake Oral Intake 1070.00 Administration Information 920.00 Output Urine Voided 750.00 Emesis 150.00 Stool Count 1.00 Urine Count 1.00 Total Summary Total Intake 1990.00 Total Output 900.00 Fluid Balance 1090.00 Physical Exam General: Awake, alert and oriented x4. In no apparent distress. Able to answer questions appropriately and speak in full sentences. Supine in bed. HEENT: Sclera anicteric. Heart: S1 and S2 present. Lungs: Chest rise symmetrical. Respirations unlabored. Abdomen: Rounded/distended and nontender with palpation. Laparoscopic incision sites approximated with surgical glue. Extremities: Freely moving. Psychiatric: Calm and cooperative. Weight Dosing Weight: 74.3 kg (08/26/24) Dosing Weight: 74.3 kg (08/26/24) Medications Medications (14) Active Scheduled: (7) acetaminophen 500 mg Tablet 1,000 mg 2 tab(s), Oral, q6h alvimopan 12 mg capsule 12 mg 1 cap(s), Oral, BID enoxaparin 40 mg/ 0.4mL syringe 40 mg 0.4 mL, Subcutaneous, qDay finasteride 5 mg tablet 5 mg 1 tab(s), Oral, qAM lidocaine 1% (MPF) 2 mL vial pf 2.5 mg 0.25 mL, Intradermal, prep pharm lisinopril 10 mg tablet 10 mg 1 tab(s), Oral, qDay tamsulosin 0.4 mg Capsule 0.4 mg 1 cap(s), Oral, qPM Continuous: (1) Lactated Ringers 1,000 mL 1,000 mL, Intravenous, 75 mL/hr PRN: (6) ondansetron 2 mg/ 1 mL 2 mL INJ 4 mg 2 mL, IV Push, q4h ondansetron 4 mg tablet 4 mg 1 tab(s), Oral, q6h oxyCODONE 10 mg Tab (Immediate Release) 10 mg 1 tab(s), Oral, q4h oxycodone 5 mg tablet (immediate release) 5 mg 1 tab(s), Oral, q4h prochlorperazine 10 mg/2 mL vial 5 mg 1 mL, IV Push, q6h promethazine 25 mg Tablet 25 mg 1 tab(s), Oral, q6h Lab Results 08/30 06:41 WBC: 11.4 H Hgb: 14.6 Hct: 43.8 Platelet: 317 Glucose Level: 105 Sodium Level: 137 Potassium Level: 3.8 BUN: 17.0 Creatinine Lvl (s): 0.87 08/29 04:03 WBC: 12.4 H Hgb: 15.1 Hct: 45.7 Platelet: 284 Neutrophil %: 85.7 H Glucose Level: 117 H Sodium Level: 138 Potassium Level: 4.2 BUN: 13.0 Creatinine Lvl (s): 0.87 EKG No qualifying data available. Assessment/Plan Post-op pain This patient is a 74-year-old male who is postoperative day #4 following a laparoscopic extended right colectomy with mobilization of the splenic flexure and ICG angiography secondary to colon cancer. On examination this morning, he was seen resting supine in bed. He did not appear toxic or in any acute distress. He reported 1 episode of emesis over the last 24 hours. He continues to complain of abdominal distention. He denied current nausea and vomiting. He has been passing flatus and has moved his bowels over the last 24 hours. His abdomen was distended but nontender. Incision sites were approximated with surgical glue. Morning laboratory data, vital signs and I/O have been reviewed. His leukocytosis is downward trending this morning. Electrolytes were within normal limits. Plan: 1. Downgrade patient to a clear liquid diet 2. Continue IV fluid hydration 3. As needed antiemetics 4. Continue to encourage mobilization in the room/going up to the chair for all meals 5. Encouraged hourly incentive spirometry use and coughing and deep breathing exercises 6. Discussed with the patient that we will continue to monitor his GI function and abdominal exams The case has been discussed with Dr. Amor. Please see his addendum for further details. Digitally Signed by GIOVANY HERZOG on 08/30/2024 09:47 AM [facility] 08-29-2024 Surgery Hospital Progress note Date of Service 08/29/2024 Chief Complaint Postoperative Nausea and vomiting Subjective Patient seen resting supine in bed earlier this morning with his present at the bedside. He had multiple episodes of emesis over the last 24 hours and stated that his last episode was at 4 AM. Despite the episodes of emesis, he stated that he felt much better this morning than he has compared to yesterday and throughout the night. He has intermittently had liquid bowel movements and he has passed minimal flatus. Objective Vitals and Measurements T: 36.6 C (Oral) TMIN: 36.4 C (Oral) TMAX: 37.0 C (Oral) HR: 103 RR: 16 BP: 103/71 SpO2: 96% Intake and Output 7AM Yesterday to 7AM Today Intake and Output (Last 24 hours) Intake Administration Information 480.00 Oral Intake 840.00 Output Urine Voided 650.00 Emesis 380.00 Stool Count 1.00 Urine Count 2.00 Total Summary Total Intake 1320.00 Total Output 1030.00 Fluid Balance 290.00 Physical Exam General: Awake, alert and oriented x4. In no apparent distress. Able to answer questions appropriately and speak in full sentences. Supine in bed. HEENT: Sclera anicteric. Heart: S1 and S2 present. Lungs: Chest rise symmetrical. Respirations unlabored. Abdomen: Soft slightly rounded and minimally tender. No rigidity or guarding noted. Laparoscopic incision sites approximated with surgical glue. Extremities: Freely moving. Psychiatric: Calm and cooperative. Weight Dosing Weight: 74.3 kg (08/26/24) Dosing Weight: 74.3 kg (08/26/24) Medications Medications (14) Active Scheduled: (7) acetaminophen 500 mg Tablet 1,000 mg 2 tab(s), Oral, q6h alvimopan 12 mg capsule 12 mg 1 cap(s), Oral, BID enoxaparin 40 mg/ 0.4mL syringe 40 mg 0.4 mL, Subcutaneous, qDay finasteride 5 mg tablet 5 mg 1 tab(s), Oral, qAM lidocaine 1% (MPF) 2 mL vial pf 2.5 mg 0.25 mL, Intradermal, prep pharm lisinopril 10 mg tablet 10 mg 1 tab(s), Oral, qDay tamsulosin 0.4 mg Capsule 0.4 mg 1 cap(s), Oral, qPM Continuous: (1) Lactated Ringers 1,000 mL 1,000 mL, Intravenous, 75 mL/hr PRN: (6) ondansetron 2 mg/ 1 mL 2 mL INJ 4 mg 2 mL, IV Push, q4h ondansetron 4 mg tablet 4 mg 1 tab(s), Oral, q6h oxyCODONE 10 mg Tab (Immediate Release) 10 mg 1 tab(s), Oral, q4h oxycodone 5 mg tablet (immediate release) 5 mg 1 tab(s), Oral, q4h prochlorperazine 10 mg/2 mL vial 5 mg 1 mL, IV Push, q6h promethazine 25 mg Tablet 25 mg 1 tab(s), Oral, q6h Lab Results 08/29 04:03 WBC: 12.4 H Hgb: 15.1 Hct: 45.7 Platelet: 284 Neutrophil %: 85.7 H Glucose Level: 117 H Sodium Level: 138 Potassium Level: 4.2 BUN: 13.0 Creatinine Lvl (s): 0.87 EKG No qualifying data available. Assessment/Plan Post-op pain This patient is a 74-year-old male who is postoperative day #3 following a laparoscopic extended right colectomy with mobilization of the splenic flexure and ICG angiography secondary to colon cancer. Over the last 24 hours, he has had multiple episodes of emesis. He has intermittently been having liquid bowel movements. He has passed minimal flatus. His laparoscopic incision sites were approximated with surgical glue. Abdomen was slightly rounded but soft. He was minimally tender with palpation. He stated that he has started to feel much better since approximately 4 AM this morning after getting a dose of Compazine. Morning laboratory data, vital signs and I/O have been reviewed. His white blood cell count was noted to be 12.4 this morning. Electrolytes were within normal limits. Plan: 1. Continue IV fluid hydration while monitoring patient's nausea 2. Diet as tolerated; he was cautioned to go slow with oral intake 3. As needed pain medication/antiemetics 4. Continue to monitor abdominal exam/GI function 5. Leukocytosis this morning is likely reactive from patient's multiple episodes of vomiting. There is no active signs of infection. 6. Repeat labs tomorrow morning 7. Continue to encourage mobilization in the room/hallway, up to the chair for all meals, and hourly incentive spirometry use 8. DVT prophylaxis with subcutaneous Lovenox The case has been discussed with Dr. Amor. Please see his addendum for further details. Digitally Signed by GIOVANY HERZOG on 08/29/2024 12:34 PM [facility] 08-29-2024 Surgery Hospital Progress note Date of Service 08/29/2024 Chief Complaint Postoperative Nausea and vomiting Subjective Patient seen resting supine in bed earlier this morning with his present at the bedside. He had multiple episodes of emesis over the last 24 hours and stated that his last episode was at 4 AM. Despite the episodes of emesis, he stated that he felt much better this morning than he has compared to yesterday and throughout the night. He has intermittently had liquid bowel movements and he has passed minimal flatus. Objective Vitals and Measurements T: 36.6 C (Oral) TMIN: 36.4 C (Oral) TMAX: 37.0 C (Oral) HR: 103 RR: 16 BP: 103/71 SpO2: 96% Intake and Output 7AM Yesterday to 7AM Today Intake and Output (Last 24 hours) Intake Administration Information 480.00 Oral Intake 840.00 Output Urine Voided 650.00 Emesis 380.00 Stool Count 1.00 Urine Count 2.00 Total Summary Total Intake 1320.00 Total Output 1030.00 Fluid Balance 290.00 Physical Exam General: Awake, alert and oriented x4. In no apparent distress. Able to answer questions appropriately and speak in full sentences. Supine in bed. HEENT: Sclera anicteric. Heart: S1 and S2 present. Lungs: Chest rise symmetrical. Respirations unlabored. Abdomen: Soft slightly rounded and minimally tender. No rigidity or guarding noted. Laparoscopic incision sites approximated with surgical glue. Extremities: Freely moving. Psychiatric: Calm and cooperative. Weight Dosing Weight: 74.3 kg (08/26/24) Dosing Weight: 74.3 kg (08/26/24) Medications Medications (14) Active Scheduled: (7) acetaminophen 500 mg Tablet 1,000 mg 2 tab(s), Oral, q6h alvimopan 12 mg capsule 12 mg 1 cap(s), Oral, BID enoxaparin 40 mg/ 0.4mL syringe 40 mg 0.4 mL, Subcutaneous, qDay finasteride 5 mg tablet 5 mg 1 tab(s), Oral, qAM lidocaine 1% (MPF) 2 mL vial pf 2.5 mg 0.25 mL, Intradermal, prep pharm lisinopril 10 mg tablet 10 mg 1 tab(s), Oral, qDay tamsulosin 0.4 mg Capsule 0.4 mg 1 cap(s), Oral, qPM Continuous: (1) Lactated Ringers 1,000 mL 1,000 mL, Intravenous, 75 mL/hr PRN: (6) ondansetron 2 mg/ 1 mL 2 mL INJ 4 mg 2 mL, IV Push, q4h ondansetron 4 mg tablet 4 mg 1 tab(s), Oral, q6h oxyCODONE 10 mg Tab (Immediate Release) 10 mg 1 tab(s), Oral, q4h oxycodone 5 mg tablet (immediate release) 5 mg 1 tab(s), Oral, q4h prochlorperazine 10 mg/2 mL vial 5 mg 1 mL, IV Push, q6h promethazine 25 mg Tablet 25 mg 1 tab(s), Oral, q6h Lab Results 08/29 04:03 WBC: 12.4 H Hgb: 15.1 Hct: 45.7 Platelet: 284 Neutrophil %: 85.7 H Glucose Level: 117 H Sodium Level: 138 Potassium Level: 4.2 BUN: 13.0 Creatinine Lvl (s): 0.87 EKG No qualifying data available. Assessment/Plan Post-op pain This patient is a 74-year-old male who is postoperative day #3 following a laparoscopic extended right colectomy with mobilization of the splenic flexure and ICG angiography secondary to colon cancer. Over the last 24 hours, he has had multiple episodes of emesis. He has intermittently been having liquid bowel movements. He has passed minimal flatus. His laparoscopic incision sites were approximated with surgical glue. Abdomen was slightly rounded but soft. He was minimally tender with palpation. He stated that he has started to feel much better since approximately 4 AM this morning after getting a dose of Compazine. Morning laboratory data, vital signs and I/O have been reviewed. His white blood cell count was noted to be 12.4 this morning. Electrolytes were within normal limits. Plan: 1. Continue IV fluid hydration while monitoring patient's nausea 2. Diet as tolerated; he was cautioned to go slow with oral intake 3. As needed pain medication/antiemetics 4. Continue to monitor abdominal exam/GI function 5. Leukocytosis this morning is likely reactive from patient's multiple episodes of vomiting. There is no active signs of infection. 6. Repeat labs tomorrow morning 7. Continue to encourage mobilization in the room/hallway, up to the chair for all meals, and hourly incentive spirometry use 8. DVT prophylaxis with subcutaneous Lovenox The case has been discussed with Dr. Amor. Please see his addendum for further details. Digitally Signed by GIOVANY HERZOG on 08/29/2024 12:34 PM [facility] 08-28-2024 Note Event Display: SP Cl in Info Procedure: LAPAROSCOPIC RIGHT COLECTOMY Preoperative diagnosis: COLON CANCER Postoperative diagnosis: COLON CANCER BLU TRAVIS MD:VERIFY; Authored Date: [facility] 08-27-2024 Anesthesiology Consult note Patient: RADHA MENG Age: 74 years Sex: Male : 1950 Associated Diagnoses: None Author: HOLLY MARTIN MD History of Present Illness Mr. Meng is POD #2 s/p laparoscopic right colectomy with Dr. Castillo. His past medical history includes Anxiety, arthritis, BPH, colon cancer, GERD (patient denies), iron deficiency anemia, kidney stone, mitral valve prolapse, palpitations, tinnitus, vertigo. Bilateral QL blocks by APS Review of Systems Ear/Nose/Mouth/Throat: Negative except as documented in history of present illness. Respiratory: Negative except as documented in history of present illness. Cardiovascular: Negative except as documented in history of present illness. Gastrointestinal: Negative except as documented in history of present illness. Genitourinary: Negative except as documented in history of present illness. Endocrine: Negative except as documented in history of present illness. Musculoskeletal: Negative except as documented in history of present illness. Integumentary: Negative except as documented in history of present illness. Neurologic: Negative except as documented in history of present illness. Health Status Allergies: Allergies (2) ActiveSeverityReaction amoxicillinMildRash Band-Aid AntisepticRash Current medications: (Selected) Inpatient Medications Ordered Entere mg, 1 cap(s), Oral, BID LR 1,000 mL: 20 mL/hr, Intravenous Phenergan: 25 mg, 1 tab(s), Oral, q6h, PRN: Nausea/Vomiting Zofran: 4 mg, 1 tab(s), Oral, q6h, PRN: Nausea/Vomiting Zofran: 4 mg, 2 mL, IV Push, q4h, PRN: Nausea/Vomiting acetaminophen: 1,000 mg, 2 tab(s), Oral, q6h enoxaparin: 40 mg, 0.4 mL, Subcutaneous, qDay lidocaine 1% preservative-free injectable solution: 2.5 mg, 0.25 mL, Intradermal, prep pharm nalbuphine: 5 mg, 0.5 mL, IV Push, q2h, PRN: Itching naloxone: 0.1 mg, 0.25 mL, IV Push, AsDirected, PRN: Control symptoms oxyCODONE 10 mg oral tablet ( IMMEDIATE release ): 10 mg, 1 tab(s), Oral, q4h, PRN: Pain, scale 7-10 oxyCODONE 5 mg oral tablet ( IMMEDIATE release ): 5 mg, 1 tab(s), Oral, q4h, PRN: Pain, scale 4-6 prochlorperazine: 5 mg, 1 mL, IV Push, q6h, PRN: Nausea/Vomiting scopolamine (Transderm-Scop Patch REMOVAL): 1 EA, Miscellaneous, Once Prescriptions Prescribed SUPREP magnesium sulfate/potassium sulfate/sodium sulfate 1.6 g-3.13 g-17.5 g/177 mL oral liquid...: as directed, Oral, AsDirected, as directed, instructions given by office, PRN: bowel preparation, 354 mL, 0 Refill(s) oxyCODONE 5 mg oral tablet ( IMMEDIATE release ): 5 mg, 1 tab(s), Oral, q6hr, for 5 day(s), PRN: Pain, scale 4-6, 18 tab(s), 0 Refill(s) Documented Medications Documented Chondroitin-Glucosamine oral tablet: 1 tab(s), Oral, qDay, 0 Refill(s) Flomax 0.4 mg oral capsule: 0.4 mg, 1 cap(s), Oral, qPM, 30 cap(s), 0 Refill(s) Multivitamin: 1 tab(s), Oral, Daily Proscar 5 mg oral tablet: 5 mg, 1 tab(s), Oral, qAM, 30 tab(s), 0 Refill(s) Vitamin C 500 mg oral tablet: 500 mg, 1 tab(s), Oral, qDay, 30 tab(s), 0 Refill(s) daily defense: 1 cap(s), Oral, qDay, 0 Refill(s) ferrous sulfate 200 mg (65 mg elemental iron) oral tablet: 200 mg, 1 tab(s), Oral, qDay, 120 tab(s), 0 Refill(s) prosymbiotic: 1 cap(s), Oral, qDay, 0 Refill(s), Medications (14) Active Scheduled: (5) acetaminophen 500 mg Tablet 1,000 mg 2 tab(s), Oral, q6h alvimopan 12 mg capsule 12 mg 1 cap(s), Oral, BID enoxaparin 40 mg/ 0.4mL syringe 40 mg 0.4 mL, Subcutaneous, qDay lidocaine 1% (MPF) 2 mL vial pf 2.5 mg 0.25 mL, Intradermal, prep pharm Transderm-Scop patch REMOVAL 1 EA, Miscellaneous, Once Continuous: (1) Lactated Ringers 1,000 mL 1,000 mL, Intravenous, 20 mL/hr PRN: (8) nalbuphine 10 mg/mL (1 mL) Solution 5 mg 0.5 mL, IV Push, q2h naloxone 0.4 mg/mL (1mL) vial 0.1 mg 0.25 mL, IV Push, AsDirected ondansetron 2 mg/ 1 mL 2 mL INJ 4 mg 2 mL, IV Push, q4h ondansetron 4 mg tablet 4 mg 1 tab(s), Oral, q6h oxyCODONE 10 mg Tab (Immediate Release) 10 mg 1 tab(s), Oral, q4h oxycodone 5 mg tablet (immediate release) 5 mg 1 tab(s), Oral, q4h prochlorperazine 10 mg/2 mL vial 5 mg 1 mL, IV Push, q6h promethazine 25 mg Tablet 25 mg 1 tab(s), Oral, q6h Problem list: Medical BPH (benign prostatic hyperplasia) / SNOMED CT [id number] 2 / Confirmed Colonoscopic polypectomy / SNOMED CT [id number] / Confirmed GERD (gastroesophageal reflux disease) / SNOMED CT [id number] 0 / Confirmed Mitral valve prolapse / SNOMED CT [id number] / Confirmed Histories Social History: Social & Psychosocial Habits Alcohol 08/26/2024 Use: Current Frequency: 1-2 times per year Substance Abuse 08/26/2024 Use: Never Tobacco 08/26/2024 Tobacco Use: Never (less than 100 in l Home/Environment 08/26/2024 Living situation: Home/Independent Safe place to go: Yes Domestic Concerns None Lives In Multilevel home Physical Examination VS/Measurements: Vital Signs (last 24 hrs) Last Charted Temp Oral36.8 DegC (AUGUST 27 08:21) Heart Rate [id number] bpm (AUGUST 26 12:29) SBPH 158 mmHg (AUGUST 27 08:21) DBPH 90 mmHg (AUGUST 27 08:21) BMI23.5 (AUGUST 26 12:31) . General: Alert and oriented, No acute distress. Respiratory: Respirations are non-labored, Symmetrical chest wall expansion. Cardiovascular: Normal rate, Regular rhythm. Integumentary: Nerve block site clean and dry with no evidence of bleeding or infection. Neurologic: Alert, Oriented, No focal deficits. Review / Management Results review: Labs (Last four charted values) WBC 10.0(AUGUST 27) Hgb 13.9(AUGUST 27)13.6(AUGUST 26) Hct 40.7(AUGUST 27)40.9(AUGUST 26) Plt 316(AUGUST 27) Na 139(AUGUST 27) K 3.9(AUGUST 27) CO2 26(AUGUST 27) Cl 105(AUGUST 27) Cr 0.99(AUGUST 27) BUN 13.0(AUGUST 27) Glucose 114(AUGUST 27) Ca 9.9(AUGUST 27) , Labs and imaging personally reviewed. Documentation reviewed: Current records. Assessment and Plan Doing well with pain control. Please call us if needed. Digitally Signed by HOLLY MARTIN MD on 08/27/2024 10:44 AM [facility] 08-27-2024 Progress note Date of Service 08/27/2024 Chief Complaint Postoperative Subjective No overnight concerns. Patient resting in bed. He does report some generalized abdominal discomfort and bloating. He is tolerating a regular diet, however reports sluggish appetite. Vital signs are stable. Objective Vitals and Measurements T: 36.8 C (Oral) TMIN: 36.02 C TMAX: 37.2 C (Oral) HR: 70 RR: 18 BP: 158/90 SpO2: 96% HT: 177.8 cm HT: 177.8 cm WT: 74.3 kg WT: 74.3 kg BMI: 23.5 BMI: 23.5 Intake and Output 7AM Yesterday to 7AM Today Intake and Output (Last 24 hours) Intake Oral Intake 420.00 Administration Information 1720.00 Output Urine Voided 2430.00 Intra-Op EBL 25.00 Intra-Op Urine Catheter 200.00 Stool Count 0.00 Total Summary Total Intake 2140.00 Total Output 2655.00 Fluid Balance -515.00 Physical Exam General: He is awake and alert. No acute distress skin: Warm and dry Lungs/chest: Respirations easy Abdomen: Soft, nondistended. Mild pain with palpation near incision sites. Incision sites without surrounding redness. Bowel sounds present. : Voiding Weight Dosing Weight: 74.3 kg (08/26/24) Dosing Weight: 74.3 kg (08/26/24) Medications Medications (15) Active Scheduled: (6) acetaminophen 500 mg Tablet 1,000 mg 2 tab(s), Oral, q6h alvimopan 12 mg capsule 12 mg 1 cap(s), Oral, BID enoxaparin 40 mg/ 0.4mL syringe 40 mg 0.4 mL, Subcutaneous, qDay lidocaine 1% (MPF) 2 mL vial pf 2.5 mg 0.25 mL, Intradermal, prep pharm metronidazole PMX 500 mg 100 mL, IV Piggyback, q8h Transderm-Scop patch REMOVAL 1 EA, Miscellaneous, Once Continuous: (1) Lactated Ringers 1,000 mL 1,000 mL, Intravenous, 20 mL/hr PRN: (8) nalbuphine 10 mg/mL (1 mL) Solution 5 mg 0.5 mL, IV Push, q2h naloxone 0.4 mg/mL (1mL) vial 0.1 mg 0.25 mL, IV Push, AsDirected ondansetron 2 mg/ 1 mL 2 mL INJ 4 mg 2 mL, IV Push, q4h ondansetron 4 mg tablet 4 mg 1 tab(s), Oral, q6h oxyCODONE 10 mg Tab (Immediate Release) 10 mg 1 tab(s), Oral, q4h oxycodone 5 mg tablet (immediate release) 5 mg 1 tab(s), Oral, q4h prochlorperazine 10 mg/2 mL vial 5 mg 1 mL, IV Push, q6h promethazine 25 mg Tablet 25 mg 1 tab(s), Oral, q6h Lab Results 08/27 05:18 WBC: 10.0 Hgb: 13.9 Hct: 40.7 Platelet: 316 Neutrophil %: 72.8 Glucose Level: 114 Sodium Level: 139 Potassium Level: 3.9 BUN: 13.0 Creatinine Lvl (s): 0.99 08/26 08:19 Hgb: 13.6 Hct: 40.9 EKG No qualifying data available. Assessment/Plan This is a 74-year-old male who is postoperative day #1 following a laparoscopic extended right colectomy secondary to CT evidence of lesion in the proximal mid transverse colon. Patient is doing fairly well postoperatively. He is tolerating a regular diet. He does report some abdominal discomfort and bloating. He has not yet had a bowel movement. Labs as noted in the EMR. White blood cell count 10.0 Plan: 1. Encourage ambulation up in spencer several times a day 2. Hourly incentive spirometry 3. Nutrition, on regular diet 4. Postoperative pain control 5. Anticipate discharge possibly later today Discussed with Dr. Castillo, addendum to follow Digitally Signed by KATELIN PARRY on 08/27/2024 08:41 AM [facility] 08-27-2024 Progress note Date of Service 08/27/2024 Chief Complaint Postoperative Subjective No overnight concerns. Patient resting in bed. He does report some generalized abdominal discomfort and bloating. He is tolerating a regular diet, however reports sluggish appetite. Vital signs are stable. Objective Vitals and Measurements T: 36.8 C (Oral) TMIN: 36.02 C TMAX: 37.2 C (Oral) HR: 70 RR: 18 BP: 158/90 SpO2: 96% HT: 177.8 cm HT: 177.8 cm WT: 74.3 kg WT: 74.3 kg BMI: 23.5 BMI: 23.5 Intake and Output 7AM Yesterday to 7AM Today Intake and Output (Last 24 hours) Intake Oral Intake 420.00 Administration Information 1720.00 Output Urine Voided 2430.00 Intra-Op EBL 25.00 Intra-Op Urine Catheter 200.00 Stool Count 0.00 Total Summary Total Intake 2140.00 Total Output 2655.00 Fluid Balance -515.00 Physical Exam General: He is awake and alert. No acute distress skin: Warm and dry Lungs/chest: Respirations easy Abdomen: Soft, nondistended. Mild pain with palpation near incision sites. Incision sites without surrounding redness. Bowel sounds present. : Voiding Weight Dosing Weight: 74.3 kg (08/26/24) Dosing Weight: 74.3 kg (08/26/24) Medications Medications (15) Active Scheduled: (6) acetaminophen 500 mg Tablet 1,000 mg 2 tab(s), Oral, q6h alvimopan 12 mg capsule 12 mg 1 cap(s), Oral, BID enoxaparin 40 mg/ 0.4mL syringe 40 mg 0.4 mL, Subcutaneous, qDay lidocaine 1% (MPF) 2 mL vial pf 2.5 mg 0.25 mL, Intradermal, prep pharm metronidazole PMX 500 mg 100 mL, IV Piggyback, q8h Transderm-Scop patch REMOVAL 1 EA, Miscellaneous, Once Continuous: (1) Lactated Ringers 1,000 mL 1,000 mL, Intravenous, 20 mL/hr PRN: (8) nalbuphine 10 mg/mL (1 mL) Solution 5 mg 0.5 mL, IV Push, q2h naloxone 0.4 mg/mL (1mL) vial 0.1 mg 0.25 mL, IV Push, AsDirected ondansetron 2 mg/ 1 mL 2 mL INJ 4 mg 2 mL, IV Push, q4h ondansetron 4 mg tablet 4 mg 1 tab(s), Oral, q6h oxyCODONE 10 mg Tab (Immediate Release) 10 mg 1 tab(s), Oral, q4h oxycodone 5 mg tablet (immediate release) 5 mg 1 tab(s), Oral, q4h prochlorperazine 10 mg/2 mL vial 5 mg 1 mL, IV Push, q6h promethazine 25 mg Tablet 25 mg 1 tab(s), Oral, q6h Lab Results 08/27 05:18 WBC: 10.0 Hgb: 13.9 Hct: 40.7 Platelet: 316 Neutrophil %: 72.8 Glucose Level: 114 Sodium Level: 139 Potassium Level: 3.9 BUN: 13.0 Creatinine Lvl (s): 0.99 08/26 08:19 Hgb: 13.6 Hct: 40.9 EKG No qualifying data available. Assessment/Plan This is a 74-year-old male who is postoperative day #1 following a laparoscopic extended right colectomy secondary to CT evidence of lesion in the proximal mid transverse colon. Patient is doing fairly well postoperatively. He is tolerating a regular diet. He does report some abdominal discomfort and bloating. He has not yet had a bowel movement. Labs as noted in the EMR. White blood cell count 10.0 Plan: 1. Encourage ambulation up in spencer several times a day 2. Hourly incentive spirometry 3. Nutrition, on regular diet 4. Postoperative pain control 5. Anticipate discharge possibly later today Discussed with Dr. Castillo, addendum to follow Digitally Signed by KATELIN PARRY on 08/27/2024 08:41 AM [facility] 08-26-2024 Pastoral care Progress note Pastoral Care Note Entered On: 08/26/2024 17:40 EDT Performed On: 08/26/2024 16:17 EDT by Raleigh Toledo Pastoral Eliane Type of Pastoral Visit : Initial visit Spiritual Care Visit Initiated by : Consult/Referral Spiritual Care Reason for Visit : General Pastoral Care Referral From : Patient, Family Spiritual Assessment : Faithful, Coping well with illness, Grateful/Thankful, Spiritually Strong Spiritual Care Emotional Assessment : Thoughtful/Reflective, Tearful Spiritual Care Intervention : Active listening, Words of Encouragement, Validation of Feelings, Facilitate Life Review, Supportive presence, Prayer with Patient/Family, Conversation, Care to Family Spiritual Outcomes : Spiritual Resources Stirred, Expresses Gratitude, Expresses Flakita Spiritual Plan of Care : Visit as Requested Pastoral Care Comments : Good visit supporting the patient and his . Used actvie listening, flakita and life review. They appreciated the visit and said many people are praying for them and said yes when I offered to pray with them. They talked about their judaism across from their home they attend and he is coverer. Talked about the waiting game and we also explored how our every heart beat is in God's hands. They so appreciated the support and my card to come back as needed. Number Present During Pastoral Visit : 1 Pastoral Care Visit Length : 20 minute(s) Raleigh Toledo - 08/26/2024 17:37 EDT Digitally Signed by Raleigh Toledo on 08/26/2024 05:37 PM [facility] 08-26-2024 Evaluation + Plan note Extrac ugo from: Title:History and Physical Author:CELIA CASTILLO MD Date:08/26/24 Orders: clindamycin, 900 mg= 50 mL, IV Piggyback, PREOP pharm heparin(heparin 5000 units/mL injection), 5000 unit(s)= 1 mL, Subcutaneous, PREOP pharm indocyanine green, 7.5 mg= 3 mL, IV Push, PREOP pharm lidocaine(lidocaine 1% preservative-free injectable solution), 2.5 mg= 0.25 mL, Intradermal, prep pharm metroNIDAZOLE, 500 mg= 100 mL, IV Piggyback, q8h scopolamine (Transderm-Scop Patch REMOVAL), 1 EA, Miscellaneous, Once Admit to Inpatient, 08/26/24 5:00:00 EDT, Level of Care: Regular floor, Reason for Admission: See History & Physical, Expected Length of Stay: More Than Two Midnights, Diagnosis: colon cancer, Constant Order Antiembolism Stocking Application Knee High, 08/26/24 5:00:00 EDT, q4h, Bilateral Blood Glucose Call Parameter, 08/26/24 5:00:00 EDT, Call Anesthesia if blood glucose is >180 mg/dL or <60mg/dL, Constant order Blood Glucose Monitoring POC, 08/26/24 5:00:00 EDT, Once, Stop Date 08/26/24 5:00:00 EDT, in Same Day Surgery Blood Glucose Monitoring POC(Blood Sugar, Fingerstick), 08/26/24 5:00:00 EDT, Once, Stop Date 08/26/24 5:00:00 EDT Chlorhexadine bath(CHG Bath), 08/26/24 5:00:00 EDT, Once, night before surgery Chlorhexadine bath(CHG Bath), 08/26/24 5:00:00 EDT, Once, CHG wipe, Day of Surgery Consult to Acute Pain Services, 08/26/24 5:00:00 EDT, SHERMAN HENRY MD, Routine, follow medically, Acute post operative/post traumatic pain Forced Air Warming [place] Application (PACU), 08/26/24 5:00:00 EDT, Apply in Surgery Receiving IV Catheter Insertion/Care, 08/26/24 5:00:00 EDT, IV Care: q4h, Rotate when clinically indicated & q7day drsg change IV Catheter Insertion/Care, 08/26/24 5:00:00 EDT, IV Care: q4h, Rotate when clinically indicated & q7day drsg change Nutritional Supplement Order(Supplement Order - Dietary), 08/26/24 5:00:00 EDT, Ensure Clear, 1 serving, Daily, 5, day(s), Pre-Surgery Clear Nutrition Drink 8 ounces Prn Adapter, 08/26/24 5:00:00 EDT Prn Adapter, 08/26/24 5:00:00 EDT Sequential Compression Device Application(SCD Application), 08/26/24 5:00:00 EDT, Knee high, q4h, bilateral Skin Prep/Scrub, 08/26/24 5:00:00 EDT, Once Vital Signs, 08/26/24 5:00:00 EDT, 08/26/24 5:00:00 EDT 74 yo M with colon cancer. On CT lesion appears to be proximal mid transverse colon. Plan for laparoscopic extended right colectomy today. Future Appointments Appointment Date:09/15/2024 01:45:00 PM Scheduled Provider:CELIA CASTILLO MD Location:[facility] S[facility] Appointment Type:GS OV Post Op [facility] 05-28-2025 Note* Exam Date Time Procedure Performing Provider Status 08/26/24 1:45 PM US Anesthesia Block Auth (Verified) [id number] ORIGINAL Images acquired, not reported on this accession number. [id number] Anesthesiology Consult note Patient: RADHA MENG Age: 74 years Sex: Male : 1950 Associated Diagnoses: None Author: HOLLY MARTIN MD Postoperative Information Post Operative Info: Post op day: Post Anesthesia Care Unit. Patient location: PACU. Assessment Postanesthesia assessment Vitals: Vital signs from flowsheet : Vital Signs 08/26/2024 12:06 EDT Systolic Blood Pressure Non-Invasive 141 mmHg HI Diastolic Blood Pressure Non-Invasive 86 mmHg Mean Arterial Pressure (NBP) 103 mmHg 08/26/2024 12:06 EDT Heart Rate Monitored 82 bpm 08/26/2024 12:06 EDT Temperature Temporal Artery 36.9 DegC Respiratory Rate 16 br/min 08/26/2024 11:36 EDT Systolic Blood Pressure Non-Invasive 141 mmHg HI Diastolic Blood Pressure Non-Invasive 81 mmHg Mean Arterial Pressure (NBP) 98 mmHg 08/26/2024 11:36 EDT Heart Rate Monitored 68 bpm 08/26/2024 11:36 EDT Respiratory Rate 16 br/min 08/26/2024 11:21 EDT Systolic Blood Pressure Non-Invasive 140 mmHg Diastolic Blood Pressure Non-Invasive 80 mmHg Mean Arterial Pressure (NBP) 97 mmHg 08/26/2024 11:21 EDT Heart Rate Monitored 69 bpm 08/26/2024 11:21 EDT Respiratory Rate 18 br/min 08/26/2024 11:07 EDT Heart Rate Monitored 84 bpm 08/26/2024 11:07 EDT Systolic Blood Pressure Non-Invasive 128 mmHg Diastolic Blood Pressure Non-Invasive 77 mmHg Mean Arterial Pressure (NBP) 90 mmHg 08/26/2024 11:07 EDT Respiratory Rate 18 br/min 08/26/2024 10:52 EDT Heart Rate Monitored 73 bpm 08/26/2024 10:52 EDT Systolic Blood Pressure Non-Invasive 119 mmHg Diastolic Blood Pressure Non-Invasive 72 mmHg Mean Arterial Pressure (NBP) 84 mmHg 08/26/2024 10:52 EDT Respiratory Rate 18 br/min 08/26/2024 10:49 EDT Heart Rate Monitored 72 bpm 08/26/2024 10:49 EDT Respiratory Rate 18 br/min 08/26/2024 10:45 EDT Heart Rate Monitored 81 bpm 08/26/2024 10:45 EDT Respiratory Rate 18 br/min 08/26/2024 10:37 EDT Systolic Blood Pressure Non-Invasive 120 mmHg Diastolic Blood Pressure Non-Invasive 70 mmHg Mean Arterial Pressure (NBP) 85 mmHg 08/26/2024 10:37 EDT Heart Rate Monitored 70 bpm Respiratory Rate 18 br/min 08/26/2024 10:21 EDT Temperature Temporal Artery 36.6 DegC Heart Rate Monitored 70 bpm Respiratory Rate 18 br/min Systolic Blood Pressure Non-Invasive 121 mmHg Diastolic Blood Pressure Non-Invasive 72 mmHg Mean Arterial Pressure (NBP) 87 mmHg 08/26/2024 10:17 EDT Systolic Blood Pressure Non-Invasive 131 mmHg mmHg Diastolic Blood Pressure Non-Invasive 81 mmHg mmHg 08/26/2024 10:15 EDT Heart Rate Monitored 73 bpm bpm Respiratory Rate - Anes 21 br/min br/min 08/26/2024 10:13 EDT Systolic Blood Pressure Non-Invasive 132 mmHg mmHg Diastolic Blood Pressure Non-Invasive 79 mmHg mmHg 08/26/2024 10:10 EDT Heart Rate Monitored 76 bpm bpm Respiratory Rate - Anes 13 br/min br/min Systolic Blood Pressure Non-Invasive 116 mmHg mmHg Diastolic Blood Pressure Non-Invasive 75 mmHg mmHg 08/26/2024 10:07 EDT Systolic Blood Pressure Non-Invasive 101 mmHg mmHg Diastolic Blood Pressure Non-Invasive 68 mmHg mmHg 08/26/2024 10:05 EDT Temperature (Route Not Specified) 36.49 DegC DegC Heart Rate Monitored 72 bpm bpm Respiratory Rate - Anes 12 br/min br/min 08/26/2024 10:04 EDT Systolic Blood Pressure Non-Invasive 111 mmHg mmHg Diastolic Blood Pressure Non-Invasive 72 mmHg mmHg 08/26/2024 10:01 EDT Systolic Blood Pressure Non-Invasive 111 mmHg mmHg Diastolic Blood Pressure Non-Invasive 74 mmHg mmHg 08/26/2024 10:00 EDT Temperature (Route Not Specified) 36.48 DegC DegC Heart Rate Monitored 72 bpm bpm Respiratory Rate - Anes 12 br/min br/min 08/26/2024 9:58 EDT Systolic Blood Pressure Non-Invasive 115 mmHg mmHg Diastolic Blood Pressure Non-Invasive 73 mmHg mmHg 08/26/2024 9:55 EDT Temperature (Route Not Specified) 36.48 DegC DegC Heart Rate Monitored 70 bpm bpm Respiratory Rate - Anes 12 br/min br/min Systolic Blood Pressure Non-Invasive 121 mmHg mmHg Diastolic Blood Pressure Non-Invasive 78 mmHg mmHg 08/26/2024 9:52 EDT Systolic Blood Pressure Non-Invasive 112 mmHg mmHg Diastolic Blood Pressure Non-Invasive 69 mmHg mmHg 08/26/2024 9:50 EDT Temperature (Route Not Specified) 36.47 DegC DegC Heart Rate Monitored 65 bpm bpm Respiratory Rate - Anes 12 br/min br/min 08/26/2024 9:49 EDT Systolic Blood Pressure Non-Invasive 116 mmHg mmHg Diastolic Blood Pressure Non-Invasive 70 mmHg mmHg 08/26/2024 9:46 EDT Systolic Blood Pressure Non-Invasive 96 mmHg mmHg Diastolic Blood Pressure Non-Invasive 65 mmHg mmHg 08/26/2024 9:45 EDT Temperature (Route Not Specified) 36.45 DegC DegC Heart Rate Monitored 69 bpm bpm Respiratory Rate - Anes 12 br/min br/min 08/26/2024 9:43 EDT Systolic Blood Pressure Non-Invasive 105 mmHg mmHg Diastolic Blood Pressure Non-Invasive 67 mmHg mmHg 08/26/2024 9:40 EDT Temperature (Route Not Specified) 36.42 DegC DegC Heart Rate Monitored 69 bpm bpm Respiratory Rate - Anes 12 br/min br/min Systolic Blood Pressure Non-Invasive 112 mmHg mmHg Diastolic Blood Pressure Non-Invasive 72 mmHg mmHg 08/26/2024 9:37 EDT Systolic Blood Pressure Non-Invasive 113 mmHg mmHg Diastolic Blood Pressure Non-Invasive 73 mmHg mmHg 08/26/2024 9:35 EDT Temperature (Route Not Specified) 36.38 DegC DegC Heart Rate Monitored 72 bpm bpm Respiratory Rate - Anes 12 br/min br/min 08/26/2024 9:34 EDT Systolic Blood Pressure Non-Invasive 104 mmHg mmHg Diastolic Blood Pressure Non-Invasive 75 mmHg mmHg 08/26/2024 9:31 EDT Systolic Blood Pressure Non-Invasive 111 mmHg mmHg Diastolic Blood Pressure Non-Invasive 79 mmHg mmHg 08/26/2024 9:30 EDT Temperature (Route Not Specified) 36.33 DegC DegC Heart Rate Monitored 70 bpm bpm Respiratory Rate - Anes 12 br/min br/min 08/26/2024 9:28 EDT Systolic Blood Pressure Non-Invasive 109 mmHg mmHg Diastolic Blood Pressure Non-Invasive 74 mmHg mmHg 08/26/2024 9:25 EDT Temperature (Route Not Specified) 36.27 DegC DegC Heart Rate Monitored 70 bpm bpm Respiratory Rate - Anes 12 br/min br/min Systolic Blood Pressure Non-Invasive 117 mmHg mmHg Diastolic Blood Pressure Non-Invasive 78 mmHg mmHg 08/26/2024 9:22 EDT Systolic Blood Pressure Non-Invasive 126 mmHg mmHg Diastolic Blood Pressure Non-Invasive 82 mmHg mmHg 08/26/2024 9:20 EDT Temperature (Route Not Specified) 36.22 DegC DegC Heart Rate Monitored 70 bpm bpm Respiratory Rate - Anes 12 br/min br/min 08/26/2024 9:19 EDT Systolic Blood Pressure Non-Invasive 133 mmHg mmHg Diastolic Blood Pressure Non-Invasive 84 mmHg mmHg 08/26/2024 9:16 EDT Systolic Blood Pressure Non-Invasive 141 mmHg mmHg Diastolic Blood Pressure Non-Invasive 91 mmHg mmHg 08/26/2024 9:15 EDT Temperature (Route Not Specified) 36.17 DegC DegC Heart Rate Monitored 65 bpm bpm Respiratory Rate - Anes 11 br/min br/min 08/26/2024 9:13 EDT Systolic Blood Pressure Non-Invasive 102 mmHg mmHg Diastolic Blood Pressure Non-Invasive 73 mmHg mmHg 08/26/2024 9:10 EDT Temperature (Route Not Specified) 36.12 DegC DegC Heart Rate Monitored 83 bpm bpm Respiratory Rate - Anes 12 br/min br/min Systolic Blood Pressure Non-Invasive 129 mmHg mmHg Diastolic Blood Pressure Non-Invasive 88 mmHg mmHg 08/26/2024 9:07 EDT Systolic Blood Pressure Non-Invasive 118 mmHg mmHg Diastolic Blood Pressure Non-Invasive 76 mmHg mmHg 08/26/2024 9:05 EDT Temperature (Route Not Specified) 36.09 DegC DegC Heart Rate Monitored 68 bpm bpm Respiratory Rate - Anes 12 br/min br/min 08/26/2024 9:04 EDT Systolic Blood Pressure Non-Invasive 128 mmHg mmHg Diastolic Blood Pressure Non-Invasive 79 mmHg mmHg 08/26/2024 9:01 EDT Systolic Blood Pressure Non-Invasive 133 mmHg mmHg Diastolic Blood Pressure Non-Invasive 82 mmHg mmHg 08/26/2024 9:00 EDT Temperature (Route Not Specified) 36.06 DegC DegC Heart Rate Monitored 67 bpm bpm Respiratory Rate - Anes 12 br/min br/min 08/26/2024 8:58 EDT Systolic Blood Pressure Non-Invasive 127 mmHg mmHg Diastolic Blood Pressure Non-Invasive 86 mmHg mmHg 08/26/2024 8:55 EDT Temperature (Route Not Specified) 36.06 DegC DegC Heart Rate Monitored 67 bpm bpm Respiratory Rate - Anes 12 br/min br/min Systolic Blood Pressure Non-Invasive 101 mmHg mmHg Diastolic Blood Pressure Non-Invasive 69 mmHg mmHg 08/26/2024 8:52 EDT Systolic Blood Pressure Non-Invasive 84 mmHg mmHg Diastolic Blood Pressure Non-Invasive 61 mmHg mmHg 08/26/2024 8:50 EDT Temperature (Route Not Specified) 36.02 DegC DegC Heart Rate Monitored 60 bpm bpm Respiratory Rate - Anes 12 br/min br/min 08/26/2024 8:49 EDT Systolic Blood Pressure Non-Invasive 103 mmHg mmHg Diastolic Blood Pressure Non-Invasive 73 mmHg mmHg 08/26/2024 8:46 EDT Systolic Blood Pressure Non-Invasive 101 mmHg mmHg Diastolic Blood Pressure Non-Invasive 70 mmHg mmHg 08/26/2024 8:45 EDT Temperature (Route Not Specified) 36.1 DegC DegC Heart Rate Monitored 60 bpm bpm Respiratory Rate - Anes 12 br/min br/min 08/26/2024 8:43 EDT Systolic Blood Pressure Non-Invasive 104 mmHg mmHg Diastolic Blood Pressure Non-Invasive 74 mmHg mmHg 08/26/2024 8:40 EDT Temperature (Route Not Specified) 36.16 DegC DegC Heart Rate Monitored 59 bpm bpm Respiratory Rate - Anes 10 br/min br/min Systolic Blood Pressure Non-Invasive 97 mmHg mmHg Diastolic Blood Pressure Non-Invasive 69 mmHg mmHg 08/26/2024 8:37 EDT Systolic Blood Pressure Non-Invasive 112 mmHg mmHg Diastolic Blood Pressure Non-Invasive 83 mmHg mmHg 08/26/2024 8:35 EDT Temperature (Route Not Specified) 36.17 DegC DegC Heart Rate Monitored 93 bpm bpm Respiratory Rate - Anes 10 br/min br/min 08/26/2024 8:34 EDT Systolic Blood Pressure Non-Invasive 122 mmHg mmHg Diastolic Blood Pressure Non-Invasive 91 mmHg mmHg 08/26/2024 8:31 EDT Systolic Blood Pressure Non-Invasive 101 mmHg mmHg Diastolic Blood Pressure Non-Invasive 73 mmHg mmHg 08/26/2024 8:30 EDT Temperature (Route Not Specified) 36.13 DegC DegC Heart Rate Monitored 68 bpm bpm Respiratory Rate - Anes 10 br/min br/min 08/26/2024 8:28 EDT Systolic Blood Pressure Non-Invasive 99 mmHg mmHg Diastolic Blood Pressure Non-Invasive 69 mmHg mmHg 08/26/2024 8:25 EDT Temperature (Route Not Specified) 35.99 DegC DegC Heart Rate Monitored 68 bpm bpm Respiratory Rate - Anes 10 br/min br/min Systolic Blood Pressure Non-Invasive 121 mmHg mmHg Diastolic Blood Pressure Non-Invasive 82 mmHg mmHg 08/26/2024 8:22 EDT Systolic Blood Pressure Non-Invasive 75 mmHg mmHg Diastolic Blood Pressure Non-Invasive 60 mmHg mmHg 08/26/2024 8:20 EDT Temperature (Route Not Specified) 35.81 DegC DegC Heart Rate Monitored 84 bpm bpm Respiratory Rate - Anes 10 br/min br/min 08/26/2024 8:19 EDT Systolic Blood Pressure Non-Invasive 80 mmHg mmHg Diastolic Blood Pressure Non-Invasive 57 mmHg mmHg 08/26/2024 8:15 EDT Heart Rate Monitored 88 bpm bpm Respiratory Rate - Anes 10 br/min br/min 08/26/2024 8:14 EDT Systolic Blood Pressure Non-Invasive 100 mmHg mmHg Diastolic Blood Pressure Non-Invasive 76 mmHg mmHg 08/26/2024 8:12 EDT Respiratory Rate - Anes 12 br/min br/min 08/26/2024 8:11 EDT Respiratory Rate - Anes 14 br/min br/min Systolic Blood Pressure Non-Invasive 113 mmHg mmHg Diastolic Blood Pressure Non-Invasive 70 mmHg mmHg 08/26/2024 8:10 EDT Heart Rate Monitored 67 bpm bpm Respiratory Rate - Anes 16 br/min br/min (Modified) 08/26/2024 8:09 EDT Respiratory Rate - Anes 16 br/min br/min Systolic Blood Pressure Non-Invasive 126 mmHg mmHg Diastolic Blood Pressure Non-Invasive 88 mmHg mmHg 08/26/2024 8:08 EDT Respiratory Rate - Anes 16 br/min br/min 08/26/2024 8:07 EDT Respiratory Rate - Anes 16 br/min br/min 08/26/2024 7:47 EDT Heart Rate Monitored 61 bpm Systolic Blood Pressure Non-Invasive 120 mmHg Diastolic Blood Pressure Non-Invasive 77 mmHg Mean Arterial Pressure (NBP) 91 mmHg 08/26/2024 7:32 EDT Heart Rate Monitored 64 bpm Systolic Blood Pressure Non-Invasive 132 mmHg Diastolic Blood Pressure Non-Invasive 84 mmHg Mean Arterial Pressure (NBP) 99 mmHg 08/26/2024 7:23 EDT Heart Rate Monitored 72 bpm Systolic Blood Pressure Non-Invasive 118 mmHg Diastolic Blood Pressure Non-Invasive 76 mmHg Mean Arterial Pressure (NBP) 89 mmHg 08/26/2024 7:18 EDT Heart Rate Monitored 63 bpm Systolic Blood Pressure Non-Invasive 131 mmHg Diastolic Blood Pressure Non-Invasive 81 mmHg Mean Arterial Pressure (NBP) 96 mmHg 08/26/2024 7:12 EDT Heart Rate Monitored 69 bpm Systolic Blood Pressure Non-Invasive 150 mmHg HI Diastolic Blood Pressure Non-Invasive 98 mmHg HI Mean Arterial Pressure (NBP) 114 mmHg 08/26/2024 6:57 EDT Heart Rate Monitored 68 bpm Systolic Blood Pressure Non-Invasive 149 mmHg HI Diastolic Blood Pressure Non-Invasive 93 mmHg HI Mean Arterial Pressure (NBP) 109 mmHg 08/26/2024 5:41 EDT Temperature Temporal Artery 36.0 DegC Apical Heart Rate 76 bpm Respiratory Rate 16 br/min Systolic Blood Pressure Non-Invasive 138 mmHg Diastolic Blood Pressure Non-Invasive 87 mmHg . Mental status: at preoperative baseline. Respiratory function: respirations are non-labored, Stable. Respiratory support: none. CV function: Stable. Cardiovascular support: none. Pain: Satisfactory. Nausea status: Satisfactory. Postoperative hydration status: within normal limits. Notes: Patient is sufficiently recovered from anesthesia to participate in the evaluation. No follow-up care needed. No complications post-anesthesia.. Digitally Signed by HOLLY MARTIN MD on 08/26/2024 12:27 PM [id number] Anesthesiology Consult note Patient: RADHA MENG Age: 74 years Sex: Male : 1950 Associated Diagnoses: None Author: HOLLY MARTIN MD Visit Information Location: Regional Block Area. Reason: Postoperative Pain Management, Surgeon Request. Timing: Preoperative. Start Time: (In Room) Start (728). Stop Time: (Out of Room) Stop (734). Time Out Performed: Refer to [facility] Time Out Form, Patient was confirmed by two patient identifiers, The procedure and laterality were verified. Monitored During Procedure: BP, Oxygen Saturation, OTHER (Heart rate). Vitals Signs Assessed Immediately Prior to Regional Placement/Sedation: No Change in Plan. Level of Sedation: Responsive, Sedated. Oxygen Therapy: O2 applied prior to procedure. Procedure Procedure Type: Main Nerve Block QL. Position Type: Left Lateral, Right Lateral. Laterality Bilateral. Needle Type: Echogenic. Size: 21 G. Length: 4". Ultrasound Exam Dynamic Guidance Use Throughout. OTHER (Image saved to patient's EMR). Parathesia Location: None. Prep Type: Cholorprep, Skin Prep Allowed to Dry. Sterile Barrier Type: Hand Hygiene, Sterile Drape, gloves, mask, and hat. Patient Condition Tolerated Well/No Complications. Note (Aspiration after every 5mL injected with negative blood return, medication injected slowly without high pressure, vital signs unchanged with injection of local anesthetic). Review / Management Vital signs remain stable throughout procedure, see nursing documentation for vital signs Intravenous Medications: Administered: Intravenous Medications - See MAR. Nerve block Medications: See MAR for medications administered for nerve block Professional Services Provider: Anesthesiologist. Digitally Signed by HOLLY MARTIN MD on 08/26/2024 08:04 AM [id number] History and physical note Date of Service 08/26/24 History of Present Illness 74 yo M with colon cancer. CT shows small pulm nodule but no obvious gross signs of metastasis. Review of Systems Negative Physical Exam Vitals and Measurements T: 36.0 C (Temporal Artery) HR: 76 (Apical) RR: 16 BP: 138/87 SpO2: 99% HT: 177.8 cm WT: 74.3 kg Weight Dosing Weight: 74.3 kg (08/26/24) General: Patient is awake and alert in bed. In no apparent distress. Able to speak in full sentences. HEENT: PERRLA. Sclerae anicteric. Mucous membranes moist and pink. Cardiovascular: Regular rate. Lungs: Chest is symmetrical. Respirations unlabored. Abdomen: Not distended. Soft. Not tender. Skin: Normal color for ethnicity. No pallor or diaphoresis. No jaundice. Psychiatric: Calm and cooperative. Lab Results No 36 Hour Lab Data Assessment/Plan Orders: clindamycin, 900 mg= 50 mL, IV Piggyback, PREOP pharm heparin(heparin 5000 units/mL injection), 5000 unit(s)= 1 mL, Subcutaneous, PREOP pharm indocyanine green, 7.5 mg= 3 mL, IV Push, PREOP pharm lidocaine(lidocaine 1% preservative-free injectable solution), 2.5 mg= 0.25 mL, Intradermal, prep pharm metroNIDAZOLE, 500 mg= 100 mL, IV Piggyback, q8h scopolamine (Transderm-Scop Patch REMOVAL), 1 EA, Miscellaneous, Once Admit to Inpatient, 08/26/24 5:00:00 EDT, Level of Care: Regular floor, Reason for Admission: See History & Physical, Expected Length of Stay: More Than Two Midnights, Diagnosis: colon cancer, Constant Order Antiembolism Stocking Application Knee High, 08/26/24 5:00:00 EDT, q4h, Bilateral Blood Glucose Call Parameter, 08/26/24 5:00:00 EDT, Call Anesthesia if blood glucose is >180 mg/dL or <60mg/dL, Constant order Blood Glucose Monitoring POC, 08/26/24 5:00:00 EDT, Once, Stop Date 08/26/24 5:00:00 EDT, in Same Day Surgery Blood Glucose Monitoring POC(Blood Sugar, Fingerstick), 08/26/24 5:00:00 EDT, Once, Stop Date 08/26/24 5:00:00 EDT Chlorhexadine bath(CHG Bath), 08/26/24 5:00:00 EDT, Once, night before surgery Chlorhexadine bath(CHG Bath), 08/26/24 5:00:00 EDT, Once, CHG wipe, Day of Surgery Consult to Acute Pain Services, 08/26/24 5:00:00 EDT, SHERMAN HENRY MD, Routine, follow medically, Acute post operative/post traumatic pain Forced [employer] [place] Application (PACU), 08/26/24 5:00:00 EDT, Apply in Surgery Receiving IV Catheter Insertion/Care, 08/26/24 5:00:00 EDT, IV Care: q4h, Rotate when clinically indicated & q7day drsg change IV Catheter Insertion/Care, 08/26/24 5:00:00 EDT, IV Care: q4h, Rotate when clinically indicated & q7day drsg change Nutritional Supplement Order(Supplement Order - Dietary), 08/26/24 5:00:00 EDT, Ensure Clear, 1 serving, Daily, 5, day(s), Pre-Surgery Clear Nutrition Drink 8 ounces Prn Adapter, 08/26/24 5:00:00 EDT Prn Adapter, 08/26/24 5:00:00 EDT Sequential Compression Device Application(SCD Application), 08/26/24 5:00:00 EDT, Knee high, q4h, bilateral Skin Prep/Scrub, 08/26/24 5:00:00 EDT, Once Vital Signs, 08/26/24 5:00:00 EDT, 08/26/24 5:00:00 EDT 74 yo M with colon cancer. On CT lesion appears to be proximal mid transverse colon. Plan for laparoscopic extended right colectomy today. Problem List/Past Medical History Ongoing BPH (benign prostatic hyperplasia) Colonoscopic polypectomy GERD (gastroesophageal reflux disease) Mitral valve prolapse Procedure/Surgical History Colonoscopy: 07/09/24 Hernia repair: 02/13/23 Colonoscopy: 2007 Excision of cyst under finger nail Biopsy of lesion of skin Medications Home Medications (10) Active Chondroitin-Glucosamine oral tablet 1 tab(s), Oral, qDay daily defense 1 cap(s), Oral, qDay ferrous sulfate 200 mg (65 mg elemental iron) oral tablet 200 mg = 1 tab(s), Oral, qDay Flomax 0.4 mg oral capsule 0.4 mg = 1 cap(s), Oral, qPM Multivitamin 1 tab(s), Oral, Daily mupirocin 2% topical ointment 1 rashaun, Topical, BID Proscar 5 mg oral tablet 5 mg = 1 tab(s), Oral, qAM prosymbiotic 1 cap(s), Oral, qDay SUPREP magnesium sulfate/potassium sulfate/sodium sulfate 1.6 g-3.13 g-17.5 g/177 mL oral liquid asdirected, PRN, Oral, AsDirected Vitamin C 500 mg oral tablet 500 mg = 1 tab(s), Oral, qDay Allergies amoxicillin (Mild) Rash Band-Aid Antiseptic Rash Social History Smoking Status - 05/03/2014 Never smoker Alcohol Use: Current. Frequency: 1-2 times per year., 07/20/2024 Home/Environment Living situation: Home/Independent. Safe place to go: Yes. Domestic Concerns: None. Lives In: Multilevel home., 08/05/2024 Substance Abuse Use: Never., 07/20/2024 Tobacco Nicotine Use: Never (less than 100 in lifetime)., 07/20/2024 Family History Atrial fibrillation: Mother. Cirrhosis of liver: Father. Heart disease: Father. Seizure: Mother. Health Status Family Member(s) Brother: History is negative Immunizations SARS-CoV-2 (COVID-19) mRNA-1273 vaccine: 0.25 unknown unit (03/02/21) SARS-CoV-2 (COVID-19) mRNA-1273 vaccine: 0.5 unknown unit (04/27/20) SARS-CoV-2 (COVID-19) mRNA-1273 vaccine: 0.5 unknown unit (03/30/20) tetanus-diphtheria toxoids: 0 unknown unit (04/01/14) tetanus-diphtheria toxoids: 0 unknown unit (06/30/03) tetanus/diphth/pertuss (Tdap) adult/adol: 0.5 unknown unit (12/19/21) zoster vaccine, inactivated: 1 unknown unit (09/21/20) zoster vaccine, inactivated: 1 unknown unit (03/10/20) Code Status No qualifying data available. Digitally Signed by CELIA CASTILLO MD on 08/26/2024 06:28 AM [id number] Telephone encounter Note* Telephone Encounter - Aundrea Dey LPN - 08/07/2024 3:51 PM EDT Patient saw colorectal surgeon at [facility] instead of doc listed below. Aundrea Dey LPN [facility]05-09-2025 Miscellaneous Notes* Telephone Encounter - Aundrea Dey LPN - 08/07/2024 3:51 PM EDT Patient saw colorectal surgeon at [facility] instead of doc listed below. Aundrea Dey LPN * Telephone Encounter - Anaya Keene - 08/07/2024 3:24 PM EDT OV canceled * Telephone Encounter - Cathie Salamanca - 08/07/2024 2:44 PM EDT Called pts spouse to review labs. Overall Hgb has improved. Iron is sufficient. She reports that "He feels the best that he has sinceSeptember, he is currently out mowing the lawn" Path from colonoscopy with mod differentiated adeno, MMR pending. They are seeing a colorectal surgeon at [facility] with plans for surgery on 08/26. Per patients spouse, thus far CT C/A/P have been clear. Needs a stress test prior to surgery. If needed they would like to see Dr Cavazos. Discussed OK to cancel follow up OV with me scheduled for next week. MONA likely caused by colon ca.Reviewed may require addition iron following surgery but ok to follow up after. Advised to call with any questions or concerns. Cathie Salamanca APRN.ASSESSMENT SPECIALIST * Telephone Encounter - Aundrea Dey LPN - 08/03/2024 2:27 PM EDT I called and spoke with Dr. Proctor's office, patient had colonoscopy on 07/09/2024. They will send colonoscopy and path report. They referred him to Dr. Moi Corea. I will request the last OV noteas well. Aundrea Dey LPN OV note requested from Dr. Moi Corea. Aundrea Dey LPN * Telephone Encounter - Anaya Keene - 08/03/2024 1:03 PM EDT Spouse called stating that patient had contacted surgeon to remove part of his colon due to test results. His surgery is scheduled for 07/27. Patient is having lab for provider outside of [facility] tomorrowor 08/05. Spouse is asking if 08/05 lab and 08/13 office visit are needed for now or wait until after surgery. Please advise. [facility] Telephone encounter Note * Telephone Encounter - Anaya Keene - 08/07/2024 3:24 PM EDT OV canceled [facility] Work Phone: [phone]) 466-875105-09-2025 Telephone encounter Note* Telephone Encounter - Cathie Salamanca - 08/07/2024 2:44 PM EDT Called pts spouse to review labs. Overall Hgb has improved. Iron is sufficient. She reports that "He feels the best that he has sinceSeptember, he is currently out mowing the lawn" Path from colonoscopy with mod differentiated adeno, MMR pending. They are seeing a colorectal surgeon at [facility] with plans for surgery on 08/26. Per patients spouse, thus far CT C/A/P have been clear. Needs a stress test prior to surgery. If needed they would like to see Dr Cavazos. Discussed OK to cancel follow up OV with me scheduled for next week. MONA likely caused by colon ca.Reviewed may require addition iron following surgery but ok to follow up after. Advised to call with any questions or concerns. Cathie Salamanca APRN.ASSESSMENT SPECIALIST [facility]05-05-2025 Telephone encounter Note* Telephone Encounter - Aundrea Dey LPN - 08/03/2024 2:27 PM EDT I called and spoke with Dr. Proctor's office, patient had colonoscopy on 07/09/2024. They will send colonoscopy and path report. They referred him to Dr. Moi Corea. I will request the last OV noteas well. Aundrea Dey LPN OV note requested from Dr. Moi Corea. Aundrea Dey LPN [facility]05-05-2025 Telephone encounter Note* Telephone Encounter - Anaya Keene - 08/03/2024 1:03 PM EDT Spouse called stating that patient had contacted surgeon to remove part of his colon due to test results. His surgery is scheduled for 07/27. Patient is having lab for provider outside of [facility] tomorrowor 08/05. Spouse is asking if 08/05 lab and 08/13 office visit are needed for now or wait until after surgery. Please advise. [facility]04-30-2025 Note* Exam Date Time Procedure Performing Provider Status 07/29/24 9:[address] Abdomen/Pelvis w/Contrast ANDI FRANKLIN MD; Auth (Verified) [id number] ORIGINAL EXAMINATION: CT OF THE ABDOMEN AND PELVIS WITH CONTRAST07/29/2024 11:55 am TECHNIQUE: CT of the abdomen and pelvis was performed with the administration of intravenous contrast. Multiplanar reformatted images are provided for review. Automated exposure control, iterative reconstruction, and/or weight based adjustment of the mA/kV was utilized to reduce the radiation dose to as low as reasonably achievable. COMPARISON: None HISTORY: ORDERING SYSTEM PROVIDED HISTORY: Reason for Exam: colon cancer; ruleout mets FINDINGS: Recist 1.1: POTENTIAL TARGET TUMOR LESIONS (maximum 5 lesions, maximum 2 per organ, longest dimension in axial plane reported, >10 mm, reproducible lesions): None. POTENTIAL TARGET LYMPH NODES (>15 mm short axis, maximum 2): None. NONTARGET LESIONS (Definite tumor lesions, lymph nodes 10-14 mm short axis, immeasurable lesions such as lymphangitic involvement, ascites, pleural effusions, etc.): None. Same day CT chest is reported separately. The included lung bases are clear. There is no visible pleural or pericardial effusion. The heart is normal in size. The liver, spleen, adrenal glands, and pancreas are within normal limits. No filling defects seen in the gallbladder. The kidneys enhance symmetrically. A punctate stone is seen in the interpolar region of the right kidney. A 1.3 cm right renal cyst is present. There are bilateral parapelvic cysts. There are multiple left parapelvic cysts with the largest measuring 3.9 cm.. A cystic lesion at the inferior pole right kidney is 22 Hounsfield units and 11 mm. A 5 cm nonobstructive stone is seen in the interpolar region of the left kidney. There is also an adjacent nonobstructive punctate stone. The large and small bowel demonstrate no obstruction. There is a short segment of bowel wall thickening within the proximal/mid transverse colon. There are mild adjacent infiltrative changes. This may relate to the area of recently diagnosed colon cancer. No free intraperitoneal fluid or gas is identified. The aorta is normal in caliber. There is mild atherosclerosis of the larger arteries. There is no lymphadenopathy. No filling defects seen in the urinary bladder. The prostate is enlarged. There is no fracture or aggressive osseous lesion. Degenerative changes are present in the spine and hips. There are nonspecific sclerotic foci within the left iliac and right pubic bones. There are bilateral fat containing inguinal hernias. IMPRESSION: There is a short segment of wall thickening within the proximal/mid transverse colon. This may relate to the area of recently diagnosed colon cancer or focal muscular contraction. No other evidence for metastatic disease within the abdomen. Nonobstructive bilateral nephrolithiasis. Mildly complex right renal cyst. Ultrasound correlation advised Other chronic findings as described above. I have personally reviewed the images of this examination and agree with the resident's findings and interpretation. Interpreted by: Andi Franklin MD Preliminary Report By: Keagan Werner Electronically signed By Andi Franklin MD Dictated Date: 07/29/2024 1:07:31 PM Prelim Date: 07/29/2024 2:51:26 PM Sign Date: 07/29/2024 2:51:26 PM Ordering Provider: CELIA CASTILLO [facility]04-22-2025 Evaluation + Plan note Future Appointments Future Scheduled Tests Radiology* CT Thorax w/ Contrast 07/21/24 * CT Abdomen and Pelvis w/ contrast 07/21/24 [facility] 04-15-2025 Telephone encounter Note* Telephone Encounter - Charlie Douglas - 07/14/2024 10:48 AM EDT Spoke w pt and he is scheduled for lab and follow up. Charlie Douglas [facility]04-15-2025 Miscellaneous Notes* Telephone Encounter - Charlie Douglas - 07/14/2024 10:48 AM EDT Spoke w pt and he is scheduled for lab and follow up. Charlie Douglas * Telephone Encounter - Lizabeth Marie LPN - 07/14/2024 10:[address] Proctor's note. Please assist in scheduling below per Cathie Marie LPN * Telephone Encounter - Cathie Salamanca - 07/14/2024 10:11 AM EDT Yes please! CBC, iron studies, ferritin (ordered) 8 - 12 weeks out from last IV iron dose so aroundfirst week of July with OV about a week after. Orders signed. Could someone please obtain records from Dr Proctor's office prior to appt with me please? Thank you! Cathie * Telephone Encounter - Anaya Keene - 07/14/2024 9:46 AM EDT Spouse called asking if there was to be any follow ups from Iron infusion for patient. Unable to find anything in AVS. Please advise. [facility]04[facility] Telephone encounter Note * Telephone Encounter - Lziabeth Marie LPN - 07/14/2024 10:[address] Proctor's note. Please assist in scheduling below per Cathie Marie LPN [facility]04-15-2025 Telephone encounter Note* Telephone Encounter - Cathie Salamanca - 07/14/2024 10:11 AM EDT Yes please! CBC, iron studies, ferritin (ordered) 8 - 12 weeks out from last IV iron dose so aroundfir week of July with OV about a week after. Orders signed. Could someone please obtain records from Dr Proctor's office prior to appt with me please? Thank you! Cathie [facility]04-15-2025 Telephone encounter Note* Telephone Encounter - Anaya Keene - 07/14/2024 9:46 AM EDT Spouse called asking if there was to be any follow ups from Iron infusion for patient. Unable to find anything in AVS. Please advise. [facility] Work Phone: [phone] Telephone encounter Note* Telephone Encounter - Charlotte Zuniga LISW - 06/02/2024 9:48 AM EST Pt noted on [facility] 1st time treatment report. Pt has a non-oncology regimen. No social work followup indicated. ELICEO Sharif [facility]03-04-2025 Miscellaneous Notes* Telephone Encounter - Charlotte Zuniga LISW - 06/02/2024 9:48 AM EST Pt noted on [facility] 1st time treatment report. Pt has a non-oncology regimen. No social work followup indicated. YVROSE Sharif-S documented in this [facility]02-[facility]-2025 History of Present illness Narrative* Cathie Salamanca - 05/22/2024 10:30 AM EST New Patient Note Radha Meng 1950 Encounter date: 05/22/2024 HPI: Radha Megn is a 74 year old male presenting as a new referral from his PCP, Rosita Caponefor anemia. Mr. eMng presents today with his spouse. He reports feeling well overall. Denies recent illnesses. No fevers, chills or NS. Reports worsening fatigue over the last year or so. No lumps, bumps or nodules. No unintentional weight loss. Was an avid runner >10 miles but started to feel more fatigued and ROBLES on runs over the last year. Has cut back but still running about a mile a day. Legs and low back have been achy, fatigued getting worse. RLS. No neuropathy. Denies abd pains. No changes in bowel habits. No GERD. Denies any over s/s of bleeding. No hematuria or hematochezia. Appetite is good. No PICA or ice cravings. Has seen Dr Proctor, was due for 5 year f/u may be a year early. Positive cologuard in 2018. He has already contacted Dr Carrington's office to schedule follow up. UTD on health maintenance. Work up from PCP reflects significant MONA. Ferritin 7 on 05/07/2024 (Results scanned in) No monoclonal proteins in serum or urine, Normal serum light chains. TSH, LDH, B12 and folate WNL. 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 Taking tums usually once a week or so no other OTCs or supplements. Not on anticoagulation. Current Outpatient Medications Medication Sig Dispense Refill tamsulosin (FLOMAX) 0.4 mg Take 0.4 mg by mouth once daily. finasteride (PROSCAR) 5 mg tablet Take 5 mg by mouth once daily. aspirin, enteric coated (ASPIRIN, ENTERIC COATED) 81 mg EC tablet Take 81 mg by mouth every other day. glucosamine HCl/chondroitin hall (GLUCOSAMINE-CHONDROITIN ORAL) Take 1 tablet by mouth once daily. multivitamin tablet Take 1 tablet by mouth once daily. fluticasone (FLONASE ALLERGY RELIEF) 50 mcg/actuation nasal spray Use 1 [place] in each nostril once daily as needed. OTC PRODUCT Standard Process Prosymbiotic: Take one tablet by mouth once daily. ascorbic acid, vitamin C, (VITAMIN C) 500 mg tablet Take 500 mg by mouth once daily. ferrous sulfate (IRON, FERROUS SULFATE,) 325 mg (65 mg iron) tablet Take 325 mg by mouth once daily. No current facility-administered medications for this visit. ALLERGIES Allergen Reactions Adhesive Tape-Silic* Rash Amoxicillin Rash FAMILY HISTORY Problem Relation Age of Onset Heart Mother Stroke Mother Arthritis Mother Heart Father Social History Tobacco Use Smoking status: Never Smokeless tobacco: Never Review of Systems: Negative except as noted in HPI reviewed 05/22/2024 Physical Exam: BP 147/78 Pulse 78 Temp (Src) 97 (Temporal) Ht 5' 10" (1.78m) Wt 182 lb (82.6kg) SpO2 100% BMI 26.11 kg/(m^2). General: Age-appropriate well developed. Appears well. Younger than stated age. HEENT: Normocephalic, no sclera icterus, external ears normal, oral cavity clear. Neck: Supple, no JVD. Chest: Clear bilaterally, no wheezes, not labored. Heart: Normal S1 and S2, no abnormal sounds Abdomen: Soft, nontender, nondistended, bowel sounds present, no organomegaly or mass, no rigidity. Extremities: No cyanosis, clubbing, gross deformities Neurological: Cranial nerves II through XII are intact bilaterally, no focal deficits. Skin: Warm and dry with no rashes or ulcerations. Nodes: No palpable adenopathy in the cervical, supraclavicular, infraclavicular, or axillary regions. Hematologic: no bruising or petechiae. Psychiatric: Alert and oriented x3. Emotional well-being assessment was performed. Pt denies depression, distress, and or problems with coping or adjustment. Assessment and Plan: Mr. Meng is a pleasant 74 year old gentleman presenting as a new consult for MONA Anemia, Microcytic - Mr. Meng is an active 74 yr old gentleman presenting with microcytic anemia - reviewed potential causes and treatments for anemia including but not limted to chronic blood loss, kidney/liver dysfunction, malabsorption, bone marrow disorders, etc - labs on 05/07/2024 Hgb 7.7 , MCV 62, Pts 458 - overall stable from month prior - PCP workup neg for monoclonal protein, TSH, LDH, hapto, b12, MMA, folate all WNL. Jess neg. - reviewed stepwise approach to work up as we know that iron is severely low would ultimately correct iron first. - Ferritin 7, Tsat 4, TIBC 354 - has started PO iron as of last week, tolerating well thus far, some constipation - discussed with hgb 7.7 and ferritin under 30 would recommend IV iron replacement - plan for IV iron sucrose 200 mg x5 - recheck CBC in about a week prior to an IV iron dose to ensure stability. - encouraged GI workup - pt has already reached out to Dr. Proctor's office to schedule Advised to call with any questions or concerns in the meantime. Cathie Salamanca APRN.ASSESSMENT SPECIALIST I spent a total of 60 minutes on the date of the service which included preparing to see the patient, [id number] patient care, completing clinical documentation, obtaining and/or reviewing separately obtained history, and counseling and educating the patient/family/caregiver. Portions of this note including HPI, ROS, impression/plan may have been copied forward as to provide important historical information essential in contributing to medical decision making. Documentation has been reviewed and edited as necessary to support clinical decision making for today's visit and to reflect my own independent evaluation of this patient. [facility] NoteHNO ID: [id number] Author: CATHIE SALAMANCA, ? Service: ? Author Type: Nurse Practitioner Type: Progress Notes Filed: 05/25/2024 15:02 Note Text: New Patient Note Radha Meng 1950 Encounter date: 05/22/2024 HPI: Radah Meng is a 74 year old male presenting as a new referral from his PCP, Rosita Capone for anemia. Mr. Meng presents today with his spouse. He reports feeling well overall. Denies recent illnesses. No fevers, chills or NS. Reports worsening fatigue over the last year or so. No lumps, bumps or nodules. No unintentional weight loss. Was an avid runner >10 miles but started to feel more fatigued and ROBLES on runs over the last year. Has cut back but still running about a mile a day. Legs and low back have been achy, fatigued getting worse. RLS. No neuropathy. Denies abd pains. No changes in bowel habits. No GERD. Denies any over s/s of bleeding. No hematuria or hematochezia. Appetite is good. No PICA or ice cravings. Has seen Dr Proctor, was due for 5 year f/u may be a year early. Positive cologuard in 2018. He has already contacted Dr Carrington's office to schedule follow up. UTD on health maintenance. Work up from PCP reflects significant MONA. Ferritin 7 on 05/07/2024 (Results scanned in) No monoclonal proteins in serum or urine, Normal serum light chains. TSH, LDH, B12 and folate WNL. 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 Taking tums usually once a week or so no other OTCs or supplements. Not on anticoagulation. Current Outpatient Medications Medication Sig Dispense Refill tamsulosin (FLOMAX) 0.4 mg Take 0.4 mg by mouth once daily. finasteride (PROSCAR) 5 mg tablet Take 5 mg by mouth once daily. aspirin, enteric coated (ASPIRIN, ENTERIC COATED) 81 mg EC tablet Take 81 mg by mouth every other day. glucosamine HCl/chondroitin hall (GLUCOSAMINE-CHONDROITIN ORAL) Take 1 tablet by mouth once daily. multivitamin tablet Take 1 tablet by mouth once daily. fluticasone (FLONASE ALLERGY RELIEF) 50 mcg/actuation nasal spray Use 1 [place] in each nostril once daily as needed. OTC PRODUCT Standard Process Prosymbiotic: Take one tablet by mouth once daily. ascorbic acid, vitamin C, (VITAMIN C) 500 mg tablet Take 500 mg by mouth once daily. ferrous sulfate (IRON, FERROUS SULFATE,) 325 mg (65 mg iron) tablet Take 325 mg by mouth once daily. No current facility-administered medications for this visit. ALLERGIES Allergen Reactions Adhesive Tape-Silic* Rash Amoxicillin Rash FAMILY HISTORY Problem Relation Age of Onset Heart Mother Stroke Mother Arthritis Mother Heart Father Social History Tobacco Use Smoking status: Never Smokeless tobacco: Never Review of Systems: Negative except as noted in HPI reviewed 05/22/2024 Physical Exam: BP 147/78 Pulse 78 Temp (Src) 97 (Temporal) Ht 5' 10" (1.78m) Wt 182 lb (82.6kg) SpO2 100% BMI 26.11 kg/(m2). General: Age-appropriate well developed. Appears well. Younger than stated age. HEENT: Normocephalic, no sclera icterus, external ears normal, oral cavity clear. Neck: Supple, no JVD. Chest: Clear bilaterally, no wheezes, not labored. Heart: Normal S1 and S2, no abnormal sounds Abdomen: Soft, nontender, nondistended, bowel sounds present, no organomegaly or mass, no rigidity. Extremities: No cyanosis, clubbing, gross deformities Neurological: Cranial nerves II through XII are intact bilaterally, no focal deficits. Skin: Warm and dry with no rashes or ulcerations. Nodes: No palpable adenopathy in the cervical, supraclavicular, infraclavicular, or axillary regions. Hematologic: no bruising or petechiae. Psychiatric: Alert and oriented x3. Emotional well-being assessment was performed. Pt denies depression, distress, and or problems with coping or adjustment. Assessment and Plan: Mr. Meng is a pleasant 74 year old gentleman presenting as a new consult for MONA Anemia, Microcytic - Mr. Meng is an active 74 yr old gentleman presenting with microcytic anemia - reviewed potential causes and treatments for anemia including but not limted to chronic blood loss, kidney/liver dysfunction, malabsorption, bone marrow disorders, etc - labs on 05/07/2024 Hgb 7.7 , MCV 62, Pts 458 - overall stable from month prior - PCP workup neg for monoclonal protein, TSH, LDH, hapto, b12, MMA, folate all WNL. Jess neg. - reviewed stepwise approach to work up as we know that iron is severely low would ultimately correct iron first. - Ferritin 7, Tsat 4, TIBC 354 - has started PO iron as of last week, (more content not included)...[facility]11-15-2023 Discharge summary Author Marya Russ [facility] February 13, 2023 8:07am Note Date/Time February 13, 2023 8:07am [facility] Medical Records Department [address] [place] [address] Instructions for Home/Discharge Instructions 02/13/23805 MR#: [id number] Acct: [id number] Name: RADHA MENG Rep #:[id number] : 1950 72 From: Marya Russ MD PCP: Dr. Rosita Capone, DO [place] [place]charge Instructions Diet Discharge Diet: Light diet - advance as tolerated Activity May shower in (days): 5 (Keep umbilical dressing clean dry and intact for 5 days. Okay to tape off with a Ziploc bag to shower. Or lower shower and upper sponge bath.) Lifting Restrictions: no lifting >20 lbs x 2 wks, no strenuous exercise for 4 wks Additional Activity Instructions:: - Dressing / Incision Call your doctor if your incision/area has: Continuous Slow Oozing, Sudden Increased Bleeding, Increased Pain/ Swelling, Increased Redness, Foul Smelling Discharge and Swelling at the incision site Call your doctor if you observe: Fever of 101 or Higher Remove Dressing in: 5 days (After 5 days okay to remove surgical dressing. Place cotton ball or rolled up gauze in bellybutton and retape daily for 2 more days.) Cleanse incision/area with: Do not get Incision Wet (for 5 days) Additional Dressing/Incision Instructions:: Steri-Strips will fall off in 7 to 10 days, if they do not fall off okay to remove after 10 days. Follow Up Care Please Follow Up With: Marya Russ MD When: Call the office for a follow-up appointment 2 weeks; after 5 PM and on call [phone] with any concerns. Test Results: Test results from this visit will be discussed in further detail at your follow- up appointment, if applicable. Discharge Plan Admission Attending Provider: Marya Russ Primary Care Provider: Rosita Capone Discharge Orders/Prescriptions Prescriptions: New tramadol 50 mg tablet 50 mg PO Q6H PRN (Reason: pain) 3 Days Qty: 5 0RF Continued glucosamine-chondroitin 900 MG tablet 900 mg PO DAILY Patient Comments: arthritis multivitamin with folic acid [Thera] 1 TABLET tablet 1 tab PO DAILY Patient Comments: Vitamin tamsulosin [Flomax] 0.4 MG capsule 0.4 mg PO QHS finasteride [Proscar] 5 MG tablet 5 mg PO DAILY ascorbic acid (vitamin C) [C-1000] 1,000 mg tablet 1 g PO DAILY Held aspirin 81 MG tablet,chewable 81 mg PO .QOD Hold Instructions: Resume on 02/16/23. Patient Comments: blood thinner WILL QUIT 5 DAYS BEFORE SURGERY Referrals / Follow Up: Rosita Capone DO [Primary Care Provider] - Disposition Disposition (needs filled in before D/C Order can be placed): Home, Self Care 02/13/23 0807<Electronically signed by Marya Russ MD>Marya Russ MD CC: Dr. Rosita Capone DO ~ Signed [facility] Work Phone: [phone]) 223-680911-15-2023 History and physical note [facility] February 13, 2023 7:09am Note Date/Time February 13, 2023 7:09am [facility] Medical Records Department [address] [place] [id number] History & Physical Exam 02/13/23 0708 MR#: [id number] Acct: [id number] Name: RADHA MENG Rep #:[id number] : 1950 72 From: Marya Russ MD PCP: Dr. Rosita Capone DO Status:[facility] Location: [place] [address] History and Physical Date of Admission: 02/13/23 Date of Service: 01/21/23 MR#: [id number] Acct: [id number] Name: RADHA MENG Rep #: [id number] : 1950 Provider: Dr. 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 Is patient in pain?: No Allergies amoxicillin Allergy (Verified 01/21/23 09:14) Rash Medications antiarthritic combination no.2 900 mg tablet (glucosamine-chondroitin) 900 mg PODAILY 11/12/14 [History Confirmed 01/21/23] aspirin 81 mg chewable tablet 81 mg PO DAILY@0800 01/24/15 [History Confirmed 01/21/23] multivitamin with folic acid 400 mcg tablet (Thera) 1 tab PO DAILY 01/24/15 [History Confirmed 01/21/23] finasteride 5 mg tablet (Proscar) 5 mg PO BID 12/15/17 [History Confirmed 01/21/23] tamsulosin 0.4 mg capsule (Flomax) 0.4 mg PO DAILY 12/15/17 [History Confirmed 01/21/23] doxycycline hyclate 100 mg capsule mg PO 01/21/23 [History Confirmed 01/21/23] PFSH Medical History (Updated 01/22/23 @ 10:[address] Marya Russ MD) BPH (benign prostatic hyperplasia) C. difficile colitis Infected hand Syncope Family History Mother ArthritisMother Heart diseaseFather Heart diseaseMother SeizuresMother CVA (cerebral vascular accident) Social History household members: spouse current occupational status: employed Smoking Status: Never smoker HPI HPI HPI: 72-year-old male presents for update H&P for umbilical hernia repair. Patient was previously seen in office in September. Patient still denies any pain at the site and there may be about 3 years. 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 ROS General General: No weight change, appetite, fatigue, colon cancer or breast cancer HEENT HEENT: No difficulty swallowing, eye injury, eye surgery, swollen glands or hoarseness Endo Endocrine: No thyroid disease, diabetes mellitus, thyroid cancer, Hair loss, heat intolerance or cold intolerance Skin Skin: No rash or changing moles Musc Musculoskeletal: Yes arthritis; No back problems, rheumatoid arthritis, gout or joint pain Cardio Cardiovascular: No murmur, pacemaker, heart disease, atrial fibrillation, high blood pressure, heart attack, heart stent, palpitations, shortness of breat withexertion or chest pain Psych Psychiatric: No depression, anxiety or hearing voices Resp Respiratory: No shortness of breath, No sleep apnea, No cough, No COPD, No asthma, No emphysema and No wheezing Gastro Gastrointestinal: No abdominal pain, No nausea or vomiting, No diarrhea, No constipation, No blood in stool, No acid reflux, Yes hemorrhoids, No ulcers, No gallbladder problem and No black,tarry stools Ajit Hematologic: No blood thinners, No blood disorders, No bleeding, No anemia and No blood clots Neuro Neurologic: No numbness and No tingling Exam Const General: cooperative, healthy appearing, comfortable and no acute distress [facility] Head: normocephalic and atraumatic Neck Neck: supple Resp Effort & Inspection: normal respiratory effort Cardio Rate: regular rate GI Inspection: non-distended Palpation: soft, hernia umbilical (Partially reducible, soft) and nontender Skin General: no rashes or lesions noted Neuro General: CN's II-XI intact bilaterally Extrem General: normal to inspection Psych Mental Status: mental status grossly normal Attitude: cooperative Assessment and Plan Assessment and Plan (1) Incarcerated umbilical hernia: Status: Acute Plan Plan to do an umbilical hernia repair with mesh. Reviewed the procedure with thepatient including the risks, including but not limited to infection, bleeding, injury to the small bowel, and recurrence. All questions were answered. Marya Russ M.D. Pager: [phone] [facility] [address] [place] [address], [address] [place] [address] Office: [phone] Coding Level of Care Code Off vis,est,level 3 Diagnoses Incarcerated umbilical hernia K42.0 01/22/23 1022 <Electronically signed by Marya Russ MD> Date Marya Russ MD 02/13/23 0709 <Electronically signed by Marya Russ MD> Cosigner Signature (if applicable): CC: Dr. Rosita Capone DO; Dr. Marya Russ MD~ Signed ADDENDUM by Dr. Marya Russ MD on 02/13/23 at 0709 Addendum I have examined the patient and the H&P has been reviewed. There are no clinicalchanges since date of exam. 02/13/23708<Electronically signed by Marya Russ MD> Cosigner Signature (if applicable): cc: Dr. Rosita Capone DO; Dr. Marya Russ MD ~* Signed [facility] Work Phone: Evaluation + Plan note Future Appointments [facility] Evaluation noteNo assessment information available [facility] Work Phone: evaluueavl note* Diagnosis Onset Date Resolution Status Incarcerated umbilical hernia acute [facility] Work Phone: Evaluation note* Diagnosis Onset Date Resolution Status History of umbilical hernia repair acute History of umbilical hernia repair acute [facility] Work Phone: Evaluation note* Diagnosis Iron deficiency anemia secondary to inadequate dietary iron intake- Primary documented in this encounter [facility] note* Diagnosis Iron deficiency anemia, unspecified iron deficiency anemia type- Primary documented in this encounter [facility] note* Diagnosis Iron deficiency anemia secondary to inadequate dietary iron intake- Primary documented in this encounter [facility] note* Diagnosis Iron deficiency anemia secondary to inadequate dietary iron intake- Primary documented in this encounter [facility] note* Diagnosis Iron deficiency anemia secondary to inadequate dietary iron intake- Primary documented in this encounter [facility] note* Diagnosis Iron deficiency anemia secondary to inadequate dietary iron intake- [facility] Diagnosis Iron deficiency anemia secondary to inadequate dietary iron intake- Primary [facility]* Diagnosis Iron deficiency anemia secondary to inadequate dietary iron intake- Primary documented in this encounter [facility] note* Diagnosis Lung nodules- Primary Other nonspecific abnormal finding of lung field Malignant neoplasm of transverse colon (HCC) Malignant neoplasm of transverse colon documented in this encounter [facility] course Narrative No data available for this section [facility] Discharge instructions No data available for this section [facility] Instructions* Name Dates Details Patient Instructions Indication:Nonsmoker Start:13-Dec-2020 Instruction Type:Provider Instructions for Treatment How to Access Health Informa tion Online using Patient Portal and [employer] Apps Indication:Nonsmoker Start:13-Dec-2020 Instruction Type:Patient Education Patient Instructions Indication:BMI 26.0-26.9,adult Start:12-Dec-2020 Instruction Type:Provider Instructions for Treatment How to Access Health Informa tion Online using Patient Portal and [employer] Apps Indication:BMI 26.0-26.9,adult Start:12-Dec-2020 Instruction Type:Patient Education How to Access Health Informa tion Online using Patient Portal and [employer] Apps Indication:Nonsmoker Start:09-Mar-2020 Instruction Type:Patient Education Patient Instructions Indication:Nonsmoker Start:09-Mar-2020 Instruction Type:Provider Instructions for Treatment How to access health informa tion online Indication:Nonsmoker Start:18-Feb-2020 Instruction Type:Patient Education How to access health informa tion online - Detail Indication:Nonsmoker Start:18-Feb-2020 Instruction Type:Patient Education Patient Instructions Indication:Nonsmoker Start:18-Feb-2020 Instruction Type:Provider Instructions for Treatment How to access health informa tion online Indication:Nonsmoker Start:06-Mar-2019 Instruction Type:Patient Education How to access health informa tion online - Detail Indication:Nonsmoker Start:06-Mar-2019 Instruction Type:Patient Education Patient Instructions Indication:Nonsmoker Start:06-Mar-2019 Instruction Type:Provider Instructions for Treatment How to access health informa tion online Indication:Nonsmoker Start:20-Nov-2018 Instruction Type:Patient Education How to access health informa tion online - Detail Indication:Nonsmoker Start:20-Nov-2018 Instruction Type:Patient Education Patient Instructions Indication:Nonsmoker Start:20-Nov-2018 Instruction Type:Provider Instructions for Treatment How to access health informa tion online Indication:Nonsmoker Start:24-Sep-2018 Instruction Type:Patient Education How to access health informa tion online - Detail Indication:Nonsmoker Start:24-Sep-2018 Instruction Type:Patient Education Patient Instructions Indication:Nonsmoker Start:24-Sep-2018 Instruction Type:Provider Instructions for Treatment How to access health informa tion online Indication:Nonsmoker Start:09-Jul-2018 Instruction Type:Patient Education How to access health informa tion online - Detail Indication:Nonsmoker Start:09-Jul-2018 Instruction Type:Patient Education Patient Instructions Indication:Nonsmoker Start:09-Jul-2018 Instruction Type:Provider Instructions for Treatment How to access health informa tion online Indication:Nonsmoker Start:16-Dec-2017 Instruction Type:Patient Education How to access health informa tion online - Detail Indication:Nonsmoker Start:16-Dec-2017 Instruction Type:Patient Education Patient Instructions Indication:Nonsmoker Start:16-Dec-2017 Instruction Type:Provider Instructions for Treatment How to access health informa tion online Indication:Nonsmoker Start:13-Dec-2017 Instruction Type:Patient Education How to access health informa tion online - Detail Indication:Nonsmoker Start:13-Dec-2017 Instruction Type:Patient Education Patient Instructions Indication:Nonsmoker Start:13-Dec-2017 Instruction Type:Provider Instructions for Treatment How to access health informa tion online Indication:Nonsmoker Start:18-Nov-2017 Instruction Type:Patient Education How to access health informa tion online - Detail Indication:Nonsmoker Start:18-Nov-2017 Instruction Type:Patient Education Patient Instructions Indication:Nonsmoker Start:18-Nov-2017 Instruction Type:Provider Instructions for Treatment How to access health informa tion online Indication:BMI 26.0-26.9,adult Start:22-May-2017 Instruction Type:Patient Education How to access health informa tion online - Detail Indication:BMI 26.0-26.9,adult Start:22-May-2017 Instruction Type:Patient Education Patient Instructions Indication:BMI 26.0-26.9,adult Start:22-May-2017 Instruction Type:Provider Instructions for Treatment How to access health informa tion online Indication:Nonsmoker Start:13-Mar-2017 Instruction Type:Patient Education How to access health informa tion online - Detail Indication:Nonsmoker Start:13-Mar-2017 Instruction Type:Patient Education Patient Instructions Indication:Nonsmoker Start:13-Mar-2017 Instruction Type:Provider Instructions for Treatment How to access health informa tion online Indication:Body mass index 25.0-25.9, adult Start:01-Mar-2017 Instruction Type:Patient Education How to access health informa tion online - Detail Indication:Body mass index 25.0-25.9, adult Start:01-Mar-2017 Instruction Type:Patient Education Patient Instructions Indication:Body mass index 25.0-25.9, adult Start:01-Mar-2017 Instruction Type:Provider Instructions for Treatment How to access health informa tion online Indication:Right knee pain Start:27-Feb-2017 Instruction Type:Patient Education How to access health informa tion online - Detail Indication:Right knee pain Start:27-Feb-2017 Instruction Type:Patient Education Patient Instructions Indication:Right knee pain Start:27-Feb-2017 Instruction Type:Provider Instructions for Treatment How to access health informa tion online Indication:Nonsmoker Start:27-Apr-2016 Instruction Type:Patient Education How to access health informa tion online - Detail Indication:Nonsmoker Start:27-Apr-2016 Instruction Type:Patient Education Patient Instructions Indication:Nonsmoker Start:27-Apr-2016 Instruction Type:Provider Instructions for Treatment How to access health informa tion online Indication:History of Clostridium difficile Start:04-Apr-2015 Instruction Type:Patient Education How to access health informa tion online - Detail Indication:History of Clostridium difficile Start:04-Apr-2015 Instruction Type:Patient Education Patient Instructions Indication:History of Clostridium difficile Start:04-Apr-2015 Instruction Type:Provider Instructions for Treatment Patient Instructions Indication:C. difficile diarrhea Start:14-Mar-2015 Instruction Type:Provider Instructions for Treatment How to access health informa tion online Indication:C. difficile diarrhea Start:14-Mar-2015 Instruction Type:Patient Education How to access health informa tion online - Detail Indication:C. difficile diarrhea Start:14-Mar-2015 Instruction Type:Patient Education [facility] Work Phone: Instructions* Name Dates Details Patient Instructions Indication:BMI 24.0-24.9, adult Start:07-Jun-2021 Instruction Type:Provider Instructions for Treatment How to Access Health Informa tion Online using Patient Portal and [employer] Apps Indication:BMI 24.0-24.9, adult Start:07-Jun-2021 Instruction Type:Patient Education Patient Instructions Indication:Nonsmoker Start:13-Dec-2020 Instruction Type:Provider Instructions for Treatment How to Access Health Informa tion Online using Patient Portal and [employer]rd [employer] Apps Indication:Nonsmoker Start:13-Dec-2020 Instruction Type:Patient Education Patient Instructions Indication:BMI 26.0-26.9,adult Start:12-Dec-2020 Instruction Type:Provider Instructions for Treatment How to Access Health Informa tion Online using Patient Portal and [employer]rd [employer] Apps Indication:BMI 26.0-26.9,adult Start:12-Dec-2020 Instruction Type:Patient Education How to Access Health Informa tion Online using Patient Portal and [employer]rd [employer] Apps Indication:Nonsmoker Start:09-Mar-2020 Instruction Type:Patient Education Patient Instructions Indication:Nonsmoker Start:09-Mar-2020 Instruction Type:Provider Instructions for Treatment How to access health informa tion online Indication:Nonsmoker Start:18-Feb-2020 Instruction Type:Patient Education How to access health informa tion online - Detail Indication:Nonsmoker Start:18-Feb-2020 Instruction Type:Patient Education Patient Instructions Indication:Nonsmoker Start:18-Feb-2020 Instruction Type:Provider Instructions for Treatment How to access health informa tion online Indication:Nonsmoker Start:06-Mar-2019 Instruction Type:Patient Education How to access health informa tion online - Detail Indication:Nonsmoker Start:06-Mar-2019 Instruction Type:Patient Education Patient Instructions Indication:Nonsmoker Start:06-Mar-2019 Instruction Type:Provider Instructions for Treatment How to access health informa tion online Indication:Nonsmoker Start:20-Nov-2018 Instruction Type:Patient Education How to access health informa tion online - Detail Indication:Nonsmoker Start:20-Nov-2018 Instruction Type:Patient Education Patient Instructions Indication:Nonsmoker Start:20-Nov-2018 Instruction Type:Provider Instructions for Treatment How to access health informa tion online Indication:Nonsmoker Start:24-Sep-2018 Instruction Type:Patient Education How to access health informa tion online - Detail Indication:Nonsmoker Start:24-Sep-2018 Instruction Type:Patient Education Patient Instructions Indication:Nonsmoker Start:24-Sep-2018 Instruction Type:Provider Instructions for Treatment How to access health informa tion online Indication:Nonsmoker Start:09-Jul-2018 Instruction Type:Patient Education How to access health informa tion online - Detail Indication:Nonsmoker Start:09-Jul-2018 Instruction Type:Patient Education Patient Instructions Indication:Nonsmoker Start:09-Jul-2018 Instruction Type:Provider Instructions for Treatment How to access health informa tion online Indication:Nonsmoker Start:16-Dec-2017 Instruction Type:Patient Education How to access health informa tion online - Detail Indication:Nonsmoker Start:16-Dec-2017 Instruction Type:Patient Education Patient Instructions Indication:Nonsmoker Start:16-Dec-2017 Instruction Type:Provider Instructions for Treatment How to access health informa tion online Indication:Nonsmoker Start:13-Dec-2017 Instruction Type:Patient Education How to access health informa tion online - Detail Indication:Nonsmoker Start:13-Dec-2017 Instruction Type:Patient Education Patient Instructions Indication:Nonsmoker Start:13-Dec-2017 Instruction Type:Provider Instructions for Treatment How to access health informa tion online Indication:Nonsmoker Start:18-Nov-2017 Instruction Type:Patient Education How to access health informa tion online - Detail Indication:Nonsmoker Start:18-Nov-2017 Instruction Type:Patient Education Patient Instructions Indication:Nonsmoker Start:18-Nov-2017 Instruction Type:Provider Instructions for Treatment How to access health informa tion online Indication:BMI 26.0-26.9,adult Start:22-May-2017 Instruction Type:Patient Education How to access health informa tion online - Detail Indication:BMI 26.0-26.9,adult Start:22-May-2017 Instruction Type:Patient Education Patient Instructions Indication:BMI 26.0-26.9,adult Start:22-May-2017 Instruction Type:Provider Instructions for Treatment How to access health informa tion online Indication:Nonsmoker Start:13-Mar-2017 Instruction Type:Patient Education How to access health informa tion online - Detail Indication:Nonsmoker Start:13-Mar-2017 Instruction Type:Patient Education Patient Instructions Indication:Nonsmoker Start:13-Mar-2017 Instruction Type:Provider Instructions for Treatment How to access health informa tion online Indication:Body mass index 25.0-25.9, adult Start:01-Mar-2017 Instruction Type:Patient Education How to access health informa tion online - Detail Indication:Body mass index 25.0-25.9, adult Start:01-Mar-2017 Instruction Type:Patient Education Patient Instructions Indication:Body mass index 25.0-25.9, adult Start:01-Mar-2017 Instruction Type:Provider Instructions for Treatment How to access health informa tion online Indication:Right knee pain Start:27-Feb-2017 Instruction Type:Patient Education How to access health informa tion online - Detail Indication:Right knee pain Start:27-Feb-2017 Instruction Type:Patient Education Patient Instructions Indication:Right knee pain Start:27-Feb-2017 Instruction Type:Provider Instructions for Treatment How to access health informa tion online Indication:Nonsmoker Start:27-Apr-2016 Instruction Type:Patient Education How to access health informa tion online - Detail Indication:Nonsmoker Start:27-Apr-2016 Instruction Type:Patient Education Patient Instructions Indication:Nonsmoker Start:27-Apr-2016 Instruction Type:Provider Instructions for Treatment How to access health informa tion online Indication:History of Clostridium difficile Start:04-Apr-2015 Instruction Type:Patient Education How to access health informa tion online - Detail Indication:History of Clostridium difficile Start:04-Apr-2015 Instruction Type:Patient Education Patient Instructions Indication:History of Clostridium difficile Start:04-Apr-2015 Instruction Type:Provider Instructions for Treatment Patient Instructions Indication:C. difficile diarrhea Start:14-Mar-2015 Instruction Type:Provider Instructions for Treatment How to access health informa tion online Indication:C. difficile diarrhea Start:14-Mar-2015 Instruction Type:Patient Education How to access health informa tion online - Detail Indication:C. difficile diarrhea Start:14-Mar-2015 Instruction Type:Patient Education [facility]; [facility] Work Phone: Instructions* Name Dates Details Patient Instructions Indication:BMI 24.0-24.9, adult Start:07-Jun-2021 Instruction Type:Provider Instructions for Treatment How to Access Health Informa tion Online using Patient Portal and [employer]rd [employer] Apps Indication:BMI 24.0-24.9, adult Start:07-Jun-2021 Instruction Type:Patient Education Patient Instructions Indication:Nonsmoker Start:13-Dec-2020 Instruction Type:Provider Instructions for Treatment How to Access Health Informa tion Online using Patient Portal and [employer]rd [employer] Apps Indication:Nonsmoker Start:13-Dec-2020 Instruction Type:Patient Education Patient Instructions Indication:BMI 26.0-26.9,adult Start:12-Dec-2020 Instruction Type:Provider Instructions for Treatment How to Access Health Informa tion Online using Patient Portal and [employer]rd [employer] Apps Indication:BMI 26.0-26.9,adult Start:12-Dec-2020 Instruction Type:Patient Education How to Access Health Informa tion Online using Patient Portal and [employer] Apps Indication:Nonsmoker Start:09-Mar-2020 Instruction Type:Patient Education Patient Instructions Indication:Nonsmoker Start:09-Mar-2020 Instruction Type:Provider Instructions for Treatment How to access health informa tion online Indication:Nonsmoker Start:18-Feb-2020 Instruction Type:Patient Education How to access health informa tion online - Detail Indication:Nonsmoker Start:18-Feb-2020 Instruction Type:Patient Education Patient Instructions Indication:Nonsmoker Start:18-Feb-2020 Instruction Type:Provider Instructions for Treatment How to access health informa tion online Indication:Nonsmoker Start:06-Mar-2019 Instruction Type:Patient Education How to access health informa tion online - Detail Indication:Nonsmoker Start:06-Mar-2019 Instruction Type:Patient Education Patient Instructions Indication:Nonsmoker Start:06-Mar-2019 Instruction Type:Provider Instructions for Treatment How to access health informa tion online Indication:Nonsmoker Start:20-Nov-2018 Instruction Type:Patient Education How to access health informa tion online - Detail Indication:Nonsmoker Start:20-Nov-2018 Instruction Type:Patient Education Patient Instructions Indication:Nonsmoker Start:20-Nov-2018 Instruction Type:Provider Instructions for Treatment How to access health informa tion online Indication:Nonsmoker Start:24-Sep-2018 Instruction Type:Patient Education How to access health informa tion online - Detail Indication:Nonsmoker Start:24-Sep-2018 Instruction Type:Patient Education Patient Instructions Indication:Nonsmoker Start:24-Sep-2018 Instruction Type:Provider Instructions for Treatment How to access health informa tion online Indication:Nonsmoker Start:09-Jul-2018 Instruction Type:Patient Education How to access health informa tion online - Detail Indication:Nonsmoker Start:09-Jul-2018 Instruction Type:Patient Education Patient Instructions Indication:Nonsmoker Start:09-Jul-2018 Instruction Type:Provider Instructions for Treatment How to access health informa tion online Indication:Nonsmoker Start:16-Dec-2017 Instruction Type:Patient Education How to access health informa tion online - Detail Indication:Nonsmoker Start:16-Dec-2017 Instruction Type:Patient Education Patient Instructions Indication:Nonsmoker Start:16-Dec-2017 Instruction Type:Provider Instructions for Treatment How to access health informa tion online Indication:Nonsmoker Start:13-Dec-2017 Instruction Type:Patient Education How to access health informa tion online - Detail Indication:Nonsmoker Start:13-Dec-2017 Instruction Type:Patient Education Patient Instructions Indication:Nonsmoker Start:13-Dec-2017 Instruction Type:Provider Instructions for Treatment How to access health informa tion online Indication:Nonsmoker Start:18-Nov-2017 Instruction Type:Patient Education How to access health informa tion online - Detail Indication:Nonsmoker Start:18-Nov-2017 Instruction Type:Patient Education Patient Instructions Indication:Nonsmoker Start:18-Nov-2017 Instruction Type:Provider Instructions for Treatment How to access health informa tion online Indication:BMI 26.0-26.9,adult Start:22-May-2017 Instruction Type:Patient Education How to access health informa tion online - Detail Indication:BMI 26.0-26.9,adult Start:22-May-2017 Instruction Type:Patient Education Patient Instructions Indication:BMI 26.0-26.9,adult Start:22-May-2017 Instruction Type:Provider Instructions for Treatment How to access health informa tion online Indication:Nonsmoker Start:13-Mar-2017 Instruction Type:Patient Education How to access health informa tion online - Detail Indication:Nonsmoker Start:13-Mar-2017 Instruction Type:Patient Education Patient Instructions Indication:Nonsmoker Start:13-Mar-2017 Instruction Type:Provider Instructions for Treatment How to access health informa tion online Indication:Body mass index 25.0-25.9, adult Start:01-Mar-2017 Instruction Type:Patient Education How to access health informa tion online - Detail Indication:Body mass index 25.0-25.9, adult Start:01-Mar-2017 Instruction Type:Patient Education Patient Instructions Indication:Body mass index 25.0-25.9, adult Start:01-Mar-2017 Instruction Type:Provider Instructions for Treatment How to access health informa tion online Indication:Right knee pain Start:27-Feb-2017 Instruction Type:Patient Education How to access health informa tion online - Detail Indication:Right knee pain Start:27-Feb-2017 Instruction Type:Patient Education Patient Instructions Indication:Right knee pain Start:27-Feb-2017 Instruction Type:Provider Instructions for Treatment How to access health informa tion online Indication:Nonsmoker Start:27-Apr-2016 Instruction Type:Patient Education How to access health informa tion online - Detail Indication:Nonsmoker Start:27-Apr-2016 Instruction Type:Patient Education Patient Instructions Indication:Nonsmoker Start:27-Apr-2016 Instruction Type:Provider Instructions for Treatment How to access health informa tion online Indication:History of Clostridium difficile Start:04-Apr-2015 Instruction Type:Patient Education How to access health informa tion online - Detail Indication:History of Clostridium difficile Start:04-Apr-2015 Instruction Type:Patient Education Patient Instructions Indication:History of Clostridium difficile Start:04-Apr-2015 Instruction Type:Provider Instructions for Treatment Patient Instructions Indication:C. difficile diarrhea Start:14-Mar-2015 Instruction Type:Provider Instructions for Treatment How to access health informa tion online Indication:C. difficile diarrhea Start:14-Mar-2015 Instruction Type:Patient Education How to access health informa tion online - Detail Indication:C. difficile diarrhea Start:14-Mar-2015 Instruction Type:Patient Education [facility]; [facility] Work Phone: Instructions* Name Dates Details Patient Instructions Indication:BMI 24.0-24.9, adult Start:07-Jun-2021 Instruction Type:Provider Instructions for Treatment How to Access Health Informa tion Online using Patient Portal and [employer]rd [employer] Apps Indication:BMI 24.0-24.9, adult Start:07-Jun-2021 Instruction Type:Patient Education Patient Instructions Indication:Nonsmoker Start:13-Dec-2020 Instruction Type:Provider Instructions for Treatment How to Access Health Informa tion Online using Patient Portal and [employer] Apps Indication:Nonsmoker Start:13-Dec-2020 Instruction Type:Patient Education Patient Instructions Indication:BMI 26.0-26.9,adult Start:12-Dec-2020 Instruction Type:Provider Instructions for Treatment How to Access Health Informa tion Online using Patient Portal and [employer] Apps Indication:BMI 26.0-26.9,adult Start:12-Dec-2020 Instruction Type:Patient Education How to Access Health Informa tion Online using Patient Portal and [employer] Apps Indication:Nonsmoker Start:09-Mar-2020 Instruction Type:Patient Education Patient Instructions Indication:Nonsmoker Start:09-Mar-2020 Instruction Type:Provider Instructions for Treatment How to access health informa tion online Indication:Nonsmoker Start:18-Feb-2020 Instruction Type:Patient Education How to access health informa tion online - Detail Indication:Nonsmoker Start:18-Feb-2020 Instruction Type:Patient Education Patient Instructions Indication:Nonsmoker Start:18-Feb-2020 Instruction Type:Provider Instructions for Treatment How to access health informa tion online Indication:Nonsmoker Start:06-Mar-2019 Instruction Type:Patient Education How to access health informa tion online - Detail Indication:Nonsmoker Start:06-Mar-2019 Instruction Type:Patient Education Patient Instructions Indication:Nonsmoker Start:06-Mar-2019 Instruction Type:Provider Instructions for Treatment How to access health informa tion online Indication:Nonsmoker Start:20-Nov-2018 Instruction Type:Patient Education How to access health informa tion online - Detail Indication:Nonsmoker Start:20-Nov-2018 Instruction Type:Patient Education Patient Instructions Indication:Nonsmoker Start:20-Nov-2018 Instruction Type:Provider Instructions for Treatment How to access health informa tion online Indication:Nonsmoker Start:24-Sep-2018 Instruction Type:Patient Education How to access health informa tion online - Detail Indication:Nonsmoker Start:24-Sep-2018 Instruction Type:Patient Education Patient Instructions Indication:Nonsmoker Start:24-Sep-2018 Instruction Type:Provider Instructions for Treatment How to access health informa tion online Indication:Nonsmoker Start:09-Jul-2018 Instruction Type:Patient Education How to access health informa tion online - Detail Indication:Nonsmoker Start:09-Jul-2018 Instruction Type:Patient Education Patient Instructions Indication:Nonsmoker Start:09-Jul-2018 Instruction Type:Provider Instructions for Treatment How to access health informa tion online Indication:Nonsmoker Start:16-Dec-2017 Instruction Type:Patient Education How to access health informa tion online - Detail Indication:Nonsmoker Start:16-Dec-2017 Instruction Type:Patient Education Patient Instructions Indication:Nonsmoker Start:16-Dec-2017 Instruction Type:Provider Instructions for Treatment How to access health informa tion online Indication:Nonsmoker Start:13-Dec-2017 Instruction Type:Patient Education How to access health informa tion online - Detail Indication:Nonsmoker Start:13-Dec-2017 Instruction Type:Patient Education Patient Instructions Indication:Nonsmoker Start:13-Dec-2017 Instruction Type:Provider Instructions for Treatment How to access health informa tion online Indication:Nonsmoker Start:18-Nov-2017 Instruction Type:Patient Education How to access health informa tion online - Detail Indication:Nonsmoker Start:18-Nov-2017 Instruction Type:Patient Education Patient Instructions Indication:Nonsmoker Start:18-Nov-2017 Instruction Type:Provider Instructions for Treatment How to access health informa tion online Indication:BMI 26.0-26.9,adult Start:22-May-2017 Instruction Type:Patient Education How to access health informa tion online - Detail Indication:BMI 26.0-26.9,adult Start:22-May-2017 Instruction Type:Patient Education Patient Instructions Indication:BMI 26.0-26.9,adult Start:22-May-2017 Instruction Type:Provider Instructions for Treatment How to access health informa tion online Indication:Nonsmoker Start:13-Mar-2017 Instruction Type:Patient Education How to access health informa tion online - Detail Indication:Nonsmoker Start:13-Mar-2017 Instruction Type:Patient Education Patient Instructions Indication:Nonsmoker Start:13-Mar-2017 Instruction Type:Provider Instructions for Treatment How to access health informa tion online Indication:Body mass index 25.0-25.9, adult Start:01-Mar-2017 Instruction Type:Patient Education How to access health informa tion online - Detail Indication:Body mass index 25.0-25.9, adult Start:01-Mar-2017 Instruction Type:Patient Education Patient Instructions Indication:Body mass index 25.0-25.9, adult Start:01-Mar-2017 Instruction Type:Provider Instructions for Treatment How to access health informa tion online Indication:Right knee pain Start:27-Feb-2017 Instruction Type:Patient Education How to access health informa tion online - Detail Indication:Right knee pain Start:27-Feb-2017 Instruction Type:Patient Education Patient Instructions Indication:Right knee pain Start:27-Feb-2017 Instruction Type:Provider Instructions for Treatment How to access health informa tion online Indication:Nonsmoker Start:27-Apr-2016 Instruction Type:Patient Education How to access health informa tion online - Detail Indication:Nonsmoker Start:27-Apr-2016 Instruction Type:Patient Education Patient Instructions Indication:Nonsmoker Start:27-Apr-2016 Instruction Type:Provider Instructions for Treatment How to access health informa tion online Indication:History of Clostridium difficile Start:04-Apr-2015 Instruction Type:Patient Education How to access health informa tion online - Detail Indication:History of Clostridium difficile Start:04-Apr-2015 Instruction Type:Patient Education Patient Instructions Indication:History of Clostridium difficile Start:04-Apr-2015 Instruction Type:Provider Instructions for Treatment Patient Instructions Indication:C. difficile diarrhea Start:14-Mar-2015 Instruction Type:Provider Instructions for Treatment How to access health informa tion online Indication:C. difficile diarrhea Start:14-Mar-2015 Instruction Type:Patient Education How to access health informa tion online - Detail Indication:C. difficile diarrhea Start:14-Mar-2015 Instruction Type:Patient Education [facility]; [facility] Work Phone: Instructions* Name Dates Details Patient Instructions Indication:BMI 24.0-24.9, adult Start:07-Jun-2021 Instruction Type:Provider Instructions for Treatment How to Access Health Informa tion Online using Patient Portal and [employer]rd [employer] Apps Indication:BMI 24.0-24.9, adult Start:07-Jun-2021 Instruction Type:Patient Education Patient Instructions Indication:Nonsmoker Start:13-Dec-2020 Instruction Type:Provider Instructions for Treatment How to Access Health Informa tion Online using Patient Portal and [employer] Apps Indication:Nonsmoker Start:13-Dec-2020 Instruction Type:Patient Education Patient Instructions Indication:BMI 26.0-26.9,adult Start:12-Dec-2020 Instruction Type:Provider Instructions for Treatment How to Access Health Informa tion Online using Patient Portal and [employer] Apps Indication:BMI 26.0-26.9,adult Start:12-Dec-2020 Instruction Type:Patient Education How to Access Health Informa tion Online using Patient Portal and [employer] Apps Indication:Nonsmoker Start:09-Mar-2020 Instruction Type:Patient Education Patient Instructions Indication:Nonsmoker Start:09-Mar-2020 Instruction Type:Provider Instructions for Treatment How to access health informa tion online Indication:Nonsmoker Start:18-Feb-2020 Instruction Type:Patient Education How to access health informa tion online - Detail Indication:Nonsmoker Start:18-Feb-2020 Instruction Type:Patient Education Patient Instructions Indication:Nonsmoker Start:18-Feb-2020 Instruction Type:Provider Instructions for Treatment How to access health informa tion online Indication:Nonsmoker Start:06-Mar-2019 Instruction Type:Patient Education How to access health informa tion online - Detail Indication:Nonsmoker Start:06-Mar-2019 Instruction Type:Patient Education Patient Instructions Indication:Nonsmoker Start:06-Mar-2019 Instruction Type:Provider Instructions for Treatment How to access health informa tion online Indication:Nonsmoker Start:20-Nov-2018 Instruction Type:Patient Education How to access health informa tion online - Detail Indication:Nonsmoker Start:20-Nov-2018 Instruction Type:Patient Education Patient Instructions Indication:Nonsmoker Start:20-Nov-2018 Instruction Type:Provider Instructions for Treatment How to access health informa tion online Indication:Nonsmoker Start:24-Sep-2018 Instruction Type:Patient Education How to access health informa tion online - Detail Indication:Nonsmoker Start:24-Sep-2018 Instruction Type:Patient Education Patient Instructions Indication:Nonsmoker Start:24-Sep-2018 Instruction Type:Provider Instructions for Treatment How to access health informa tion online Indication:Nonsmoker Start:09-Jul-2018 Instruction Type:Patient Education How to access health informa tion online - Detail Indication:Nonsmoker Start:09-Jul-2018 Instruction Type:Patient Education Patient Instructions Indication:Nonsmoker Start:09-Jul-2018 Instruction Type:Provider Instructions for Treatment How to access health informa tion online Indication:Nonsmoker Start:16-Dec-2017 Instruction Type:Patient Education How to access health informa tion online - Detail Indication:Nonsmoker Start:16-Dec-2017 Instruction Type:Patient Education Patient Instructions Indication:Nonsmoker Start:16-Dec-2017 Instruction Type:Provider Instructions for Treatment How to access health informa tion online Indication:Nonsmoker Start:13-Dec-2017 Instruction Type:Patient Education How to access health informa tion online - Detail Indication:Nonsmoker Start:13-Dec-2017 Instruction Type:Patient Education Patient Instructions Indication:Nonsmoker Start:13-Dec-2017 Instruction Type:Provider Instructions for Treatment How to access health informa tion online Indication:Nonsmoker Start:18-Nov-2017 Instruction Type:Patient Education How to access health informa tion online - Detail Indication:Nonsmoker Start:18-Nov-2017 Instruction Type:Patient Education Patient Instructions Indication:Nonsmoker Start:18-Nov-2017 Instruction Type:Provider Instructions for Treatment How to access health informa tion online Indication:BMI 26.0-26.9,adult Start:22-May-2017 Instruction Type:Patient Education How to access health informa tion online - Detail Indication:BMI 26.0-26.9,adult Start:22-May-2017 Instruction Type:Patient Education Patient Instructions Indication:BMI 26.0-26.9,adult Start:22-May-2017 Instruction Type:Provider Instructions for Treatment How to access health informa tion online Indication:Nonsmoker Start:13-Mar-2017 Instruction Type:Patient Education How to access health informa tion online - Detail Indication:Nonsmoker Start:13-Mar-2017 Instruction Type:Patient Education Patient Instructions Indication:Nonsmoker Start:13-Mar-2017 Instruction Type:Provider Instructions for Treatment How to access health informa tion online Indication:Body mass index 25.0-25.9, adult Start:01-Mar-2017 Instruction Type:Patient Education How to access health informa tion online - Detail Indication:Body mass index 25.0-25.9, adult Start:01-Mar-2017 Instruction Type:Patient Education Patient Instructions Indication:Body mass index 25.0-25.9, adult Start:01-Mar-2017 Instruction Type:Provider Instructions for Treatment How to access health informa tion online Indication:Right knee pain Start:27-Feb-2017 Instruction Type:Patient Education How to access health informa tion online - Detail Indication:Right knee pain Start:27-Feb-2017 Instruction Type:Patient Education Patient Instructions Indication:Right knee pain Start:27-Feb-2017 Instruction Type:Provider Instructions for Treatment How to access health informa tion online Indication:Nonsmoker Start:27-Apr-2016 Instruction Type:Patient Education How to access health informa tion online - Detail Indication:Nonsmoker Start:27-Apr-2016 Instruction Type:Patient Education Patient Instructions Indication:Nonsmoker Start:27-Apr-2016 Instruction Type:Provider Instructions for Treatment How to access health informa tion online Indication:History of Clostridium difficile Start:04-Apr-2015 Instruction Type:Patient Education How to access health informa tion online - Detail Indication:History of Clostridium difficile Start:04-Apr-2015 Instruction Type:Patient Education Patient Instructions Indication:History of Clostridium difficile Start:04-Apr-2015 Instruction Type:Provider Instructions for Treatment Patient Instructions Indication:C. difficile diarrhea Start:14-Mar-2015 Instruction Type:Provider Instructions for Treatment How to access health informa tion online Indication:C. difficile diarrhea Start:14-Mar-2015 Instruction Type:Patient Education How to access health informa tion online - Detail Indication:C. difficile diarrhea Start:14-Mar-2015 Instruction Type:Patient Education [facility]; [facility] Work Phone: Instructions* Name Dates Details Patient Instructions Indication:BMI 24.0-24.9, adult Start:07-Jun-2021 Instruction Type:Provider Instructions for Treatment How to Access Health Informa tion Online using Patient Portal and [employer]rd [employer] Apps Indication:BMI 24.0-24.9, adult Start:07-Jun-2021 Instruction Type:Patient Education Patient Instructions Indication:Nonsmoker Start:13-Dec-2020 Instruction Type:Provider Instructions for Treatment How to Access Health Informa tion Online using Patient Portal and [employer]rd [employer] Apps Indication:Nonsmoker Start:13-Dec-2020 Instruction Type:Patient Education Patient Instructions Indication:BMI 26.0-26.9,adult Start:12-Dec-2020 Instruction Type:Provider Instructions for Treatment How to Access Health Informa tion Online using Patient Portal and [employer]rd [employer] Apps Indication:BMI 26.0-26.9,adult Start:12-Dec-2020 Instruction Type:Patient Education How to Access Health Informa tion Online using Patient Portal and [employer]rd [employer] Apps Indication:Nonsmoker Start:09-Mar-2020 Instruction Type:Patient Education Patient Instructions Indication:Nonsmoker Start:09-Mar-2020 Instruction Type:Provider Instructions for Treatment How to access health informa tion online Indication:Nonsmoker Start:18-Feb-2020 Instruction Type:Patient Education How to access health informa tion online - Detail Indication:Nonsmoker Start:18-Feb-2020 Instruction Type:Patient Education Patient Instructions Indication:Nonsmoker Start:18-Feb-2020 Instruction Type:Provider Instructions for Treatment How to access health informa tion online Indication:Nonsmoker Start:06-Mar-2019 Instruction Type:Patient Education How to access health informa tion online - Detail Indication:Nonsmoker Start:06-Mar-2019 Instruction Type:Patient Education Patient Instructions Indication:Nonsmoker Start:06-Mar-2019 Instruction Type:Provider Instructions for Treatment How to access health informa tion online Indication:Nonsmoker Start:20-Nov-2018 Instruction Type:Patient Education How to access health informa tion online - Detail Indication:Nonsmoker Start:20-Nov-2018 Instruction Type:Patient Education Patient Instructions Indication:Nonsmoker Start:20-Nov-2018 Instruction Type:Provider Instructions for Treatment How to access health informa tion online Indication:Nonsmoker Start:24-Sep-2018 Instruction Type:Patient Education How to access health informa tion online - Detail Indication:Nonsmoker Start:24-Sep-2018 Instruction Type:Patient Education Patient Instructions Indication:Nonsmoker Start:24-Sep-2018 Instruction Type:Provider Instructions for Treatment How to access health informa tion online Indication:Nonsmoker Start:09-Jul-2018 Instruction Type:Patient Education How to access health informa tion online - Detail Indication:Nonsmoker Start:09-Jul-2018 Instruction Type:Patient Education Patient Instructions Indication:Nonsmoker Start:09-Jul-2018 Instruction Type:Provider Instructions for Treatment How to access health informa tion online Indication:Nonsmoker Start:16-Dec-2017 Instruction Type:Patient Education How to access health informa tion online - Detail Indication:Nonsmoker Start:16-Dec-2017 Instruction Type:Patient Education Patient Instructions Indication:Nonsmoker Start:16-Dec-2017 Instruction Type:Provider Instructions for Treatment How to access health informa tion online Indication:Nonsmoker Start:13-Dec-2017 Instruction Type:Patient Education How to access health informa tion online - Detail Indication:Nonsmoker Start:13-Dec-2017 Instruction Type:Patient Education Patient Instructions Indication:Nonsmoker Start:13-Dec-2017 Instruction Type:Provider Instructions for Treatment How to access health informa tion online Indication:Nonsmoker Start:18-Nov-2017 Instruction Type:Patient Education How to access health informa tion online - Detail Indication:Nonsmoker Start:18-Nov-2017 Instruction Type:Patient Education Patient Instructions Indication:Nonsmoker Start:18-Nov-2017 Instruction Type:Provider Instructions for Treatment How to access health informa tion online Indication:BMI 26.0-26.9,adult Start:22-May-2017 Instruction Type:Patient Education How to access health informa tion online - Detail Indication:BMI 26.0-26.9,adult Start:22-May-2017 Instruction Type:Patient Education Patient Instructions Indication:BMI 26.0-26.9,adult Start:22-May-2017 Instruction Type:Provider Instructions for Treatment How to access health informa tion online Indication:Nonsmoker Start:13-Mar-2017 Instruction Type:Patient Education How to access health informa tion online - Detail Indication:Nonsmoker Start:13-Mar-2017 Instruction Type:Patient Education Patient Instructions Indication:Nonsmoker Start:13-Mar-2017 Instruction Type:Provider Instructions for Treatment How to access health informa tion online Indication:Body mass index 25.0-25.9, adult Start:01-Mar-2017 Instruction Type:Patient Education How to access health informa tion online - Detail Indication:Body mass index 25.0-25.9, adult Start:01-Mar-2017 Instruction Type:Patient Education Patient Instructions Indication:Body mass index 25.0-25.9, adult Start:01-Mar-2017 Instruction Type:Provider Instructions for Treatment How to access health informa tion online Indication:Right knee pain Start:27-Feb-2017 Instruction Type:Patient Education How to access health informa tion online - Detail Indication:Right knee pain Start:27-Feb-2017 Instruction Type:Patient Education Patient Instructions Indication:Right knee pain Start:27-Feb-2017 Instruction Type:Provider Instructions for Treatment How to access health informa tion online Indication:Nonsmoker Start:27-Apr-2016 Instruction Type:Patient Education How to access health informa tion online - Detail Indication:Nonsmoker Start:27-Apr-2016 Instruction Type:Patient Education Patient Instructions Indication:Nonsmoker Start:27-Apr-2016 Instruction Type:Provider Instructions for Treatment How to access health informa tion online Indication:History of Clostridium difficile Start:04-Apr-2015 Instruction Type:Patient Education How to access health informa tion online - Detail Indication:History of Clostridium difficile Start:04-Apr-2015 Instruction Type:Patient Education Patient Instructions Indication:History of Clostridium difficile Start:04-Apr-2015 Instruction Type:Provider Instructions for Treatment Patient Instructions Indication:C. difficile diarrhea Start:14-Mar-2015 Instruction Type:Provider Instructions for Treatment How to access health informa tion online Indication:C. difficile diarrhea Start:14-Mar-2015 Instruction Type:Patient Education How to access health informa tion online - Detail Indication:C. difficile diarrhea Start:14-Mar-2015 Instruction Type:Patient Education [facility]; [facility] Work Phone: Instructions* Name Dates Details Patient Instructions Indication:BMI 26.0-26.9,adult Start:08-Jun-2022 Instruction Type:Provider Instructions for Treatment How to Access Health Informa tion Online using Patient Portal and [employer]rd [employer] Apps Indication:BMI 26.0-26.9,adult Start:08-Jun-2022 Instruction Type:Patient Education Patient Instructions Indication:BMI 24.0-24.9, adult Start:07-Jun-2021 Instruction Type:Provider Instructions for Treatment How to Access Health Informa tion Online using Patient Portal and [employer]rd [employer] Apps Indication:BMI 24.0-24.9, adult Start:07-Jun-2021 Instruction Type:Patient Education Patient Instructions Indication:Nonsmoker Start:13-Dec-2020 Instruction Type:Provider Instructions for Treatment How to Access Health Informa tion Online using Patient Portal and [employer]rd [employer] Apps Indication:Nonsmoker Start:13-Dec-2020 Instruction Type:Patient Education Patient Instructions Indication:BMI 26.0-26.9,adult Start:12-Dec-2020 Instruction Type:Provider Instructions for Treatment How to Access Health Informa tion Online using Patient Portal and [employer]rd [employer] Apps Indication:BMI 26.0-26.9,adult Start:12-Dec-2020 Instruction Type:Patient Education How to Access Health Informa tion Online using Patient Portal and [employer]rd [employer] Apps Indication:Nonsmoker Start:09-Mar-2020 Instruction Type:Patient Education Patient Instructions Indication:Nonsmoker Start:09-Mar-2020 Instruction Type:Provider Instructions for Treatment How to access health informa tion online Indication:Nonsmoker Start:18-Feb-2020 Instruction Type:Patient Education How to access health informa tion online - Detail Indication:Nonsmoker Start:18-Feb-2020 Instruction Type:Patient Education Patient Instructions Indication:Nonsmoker Start:18-Feb-2020 Instruction Type:Provider Instructions for Treatment How to access health informa tion online Indication:Nonsmoker Start:06-Mar-2019 Instruction Type:Patient Education How to access health informa tion online - Detail Indication:Nonsmoker Start:06-Mar-2019 Instruction Type:Patient Education Patient Instructions Indication:Nonsmoker Start:06-Mar-2019 Instruction Type:Provider Instructions for Treatment How to access health informa tion online Indication:Nonsmoker Start:20-Nov-2018 Instruction Type:Patient Education How to access health informa tion online - Detail Indication:Nonsmoker Start:20-Nov-2018 Instruction Type:Patient Education Patient Instructions Indication:Nonsmoker Start:20-Nov-2018 Instruction Type:Provider Instructions for Treatment How to access health informa tion online Indication:Nonsmoker Start:24-Sep-2018 Instruction Type:Patient Education How to access health informa tion online - Detail Indication:Nonsmoker Start:24-Sep-2018 Instruction Type:Patient Education Patient Instructions Indication:Nonsmoker Start:24-Sep-2018 Instruction Type:Provider Instructions for Treatment How to access health informa tion online Indication:Nonsmoker Start:09-Jul-2018 Instruction Type:Patient Education How to access health informa tion online - Detail Indication:Nonsmoker Start:09-Jul-2018 Instruction Type:Patient Education Patient Instructions Indication:Nonsmoker Start:09-Jul-2018 Instruction Type:Provider Instructions for Treatment How to access health informa tion online Indication:Nonsmoker Start:16-Dec-2017 Instruction Type:Patient Education How to access health informa tion online - Detail Indication:Nonsmoker Start:16-Dec-2017 Instruction Type:Patient Education Patient Instructions Indication:Nonsmoker Start:16-Dec-2017 Instruction Type:Provider Instructions for Treatment How to access health informa tion online Indication:Nonsmoker Start:13-Dec-2017 Instruction Type:Patient Education How to access health informa tion online - Detail Indication:Nonsmoker Start:13-Dec-2017 Instruction Type:Patient Education Patient Instructions Indication:Nonsmoker Start:13-Dec-2017 Instruction Type:Provider Instructions for Treatment How to access health informa tion online Indication:Nonsmoker Start:18-Nov-2017 Instruction Type:Patient Education How to access health informa tion online - Detail Indication:Nonsmoker Start:18-Nov-2017 Instruction Type:Patient Education Patient Instructions Indication:Nonsmoker Start:18-Nov-2017 Instruction Type:Provider Instructions for Treatment How to access health informa tion online Indication:BMI 26.0-26.9,adult Start:22-May-2017 Instruction Type:Patient Education How to access health informa tion online - Detail Indication:BMI 26.0-26.9,adult Start:22-May-2017 Instruction Type:Patient Education Patient Instructions Indication:BMI 26.0-26.9,adult Start:22-May-2017 Instruction Type:Provider Instructions for Treatment How to access health informa tion online Indication:Nonsmoker Start:13-Mar-2017 Instruction Type:Patient Education How to access health informa tion online - Detail Indication:Nonsmoker Start:13-Mar-2017 Instruction Type:Patient Education Patient Instructions Indication:Nonsmoker Start:13-Mar-2017 Instruction Type:Provider Instructions for Treatment How to access health informa tion online Indication:Body mass index 25.0-25.9, adult Start:01-Mar-2017 Instruction Type:Patient Education How to access health informa tion online - Detail Indication:Body mass index 25.0-25.9, adult Start:01-Mar-2017 Instruction Type:Patient Education Patient Instructions Indication:Body mass index 25.0-25.9, adult Start:01-Mar-2017 Instruction Type:Provider Instructions for Treatment How to access health informa tion online Indication:Right knee pain Start:27-Feb-2017 Instruction Type:Patient Education How to access health informa tion online - Detail Indication:Right knee pain Start:27-Feb-2017 Instruction Type:Patient Education Patient Instructions Indication:Right knee pain Start:27-Feb-2017 Instruction Type:Provider Instructions for Treatment How to access health informa tion online Indication:Nonsmoker Start:27-Apr-2016 Instruction Type:Patient Education How to access health informa tion online - Detail Indication:Nonsmoker Start:27-Apr-2016 Instruction Type:Patient Education Patient Instructions Indication:Nonsmoker Start:27-Apr-2016 Instruction Type:Provider Instructions for Treatment How to access health informa tion online Indication:History of Clostridium difficile Start:04-Apr-2015 Instruction Type:Patient Education How to access health informa tion online - Detail Indication:History of Clostridium difficile Start:04-Apr-2015 Instruction Type:Patient Education Patient Instructions Indication:History of Clostridium difficile Start:04-Apr-2015 Instruction Type:Provider Instructions for Treatment Patient Instructions Indication:C. difficile diarrhea Start:14-Mar-2015 Instruction Type:Provider Instructions for Treatment How to access health informa tion online Indication:C. difficile diarrhea Start:14-Mar-2015 Instruction Type:Patient Education How to access health informa tion online - Detail Indication:C. difficile diarrhea Start:14-Mar-2015 Instruction Type:Patient Education [facility]; [facility] Work Phone: Instructions* Name Dates Details Patient Instructions Indication:BMI 26.0-26.9,adult Start:16-Jul-2022 Instruction Type:Provider Instructions for Treatment How to Access Health Informa tion Online using Patient Portal and [employer]rd [employer] Apps Indication:BMI 26.0-26.9,adult Start:16-Jul-2022 Instruction Type:Patient Education Patient Instructions Indication:BMI 26.0-26.9,adult Start:08-Jun-2022 Instruction Type:Provider Instructions for Treatment How to Access Health Informa tion Online using Patient Portal and [employer]rd [employer] Apps Indication:BMI 26.0-26.9,adult Start:08-Jun-2022 Instruction Type:Patient Education Patient Instructions Indication:BMI 24.0-24.9, adult Start:07-Jun-2021 Instruction Type:Provider Instructions for Treatment How to Access Health Informa tion Online using Patient Portal and [employer]rd [employer] Apps Indication:BMI 24.0-24.9, adult Start:07-Jun-2021 Instruction Type:Patient Education Patient Instructions Indication:Nonsmoker Start:13-Dec-2020 Instruction Type:Provider Instructions for Treatment How to Access Health Informa tion Online using Patient Portal and [employer]rd [employer] Apps Indication:Nonsmoker Start:13-Dec-2020 Instruction Type:Patient Education Patient Instructions Indication:BMI 26.0-26.9,adult Start:12-Dec-2020 Instruction Type:Provider Instructions for Treatment How to Access Health Informa tion Online using Patient Portal and [employer]rd [employer] Apps Indication:BMI 26.0-26.9,adult Start:12-Dec-2020 Instruction Type:Patient Education How to Access Health Informa tion Online using Patient Portal and [employer]rd [employer] Apps Indication:Nonsmoker Start:09-Mar-2020 Instruction Type:Patient Education Patient Instructions Indication:Nonsmoker Start:09-Mar-2020 Instruction Type:Provider Instructions for Treatment How to access health informa tion online Indication:Nonsmoker Start:18-Feb-2020 Instruction Type:Patient Education How to access health informa tion online - Detail Indication:Nonsmoker Start:18-Feb-2020 Instruction Type:Patient Education Patient Instructions Indication:Nonsmoker Start:18-Feb-2020 Instruction Type:Provider Instructions for Treatment How to access health informa tion online Indication:Nonsmoker Start:06-Mar-2019 Instruction Type:Patient Education How to access health informa tion online - Detail Indication:Nonsmoker Start:06-Mar-2019 Instruction Type:Patient Education Patient Instructions Indication:Nonsmoker Start:06-Mar-2019 Instruction Type:Provider Instructions for Treatment How to access health informa tion online Indication:Nonsmoker Start:20-Nov-2018 Instruction Type:Patient Education How to access health informa tion online - Detail Indication:Nonsmoker Start:20-Nov-2018 Instruction Type:Patient Education Patient Instructions Indication:Nonsmoker Start:20-Nov-2018 Instruction Type:Provider Instructions for Treatment How to access health informa tion online Indication:Nonsmoker Start:24-Sep-2018 Instruction Type:Patient Education How to access health informa tion online - Detail Indication:Nonsmoker Start:24-Sep-2018 Instruction Type:Patient Education Patient Instructions Indication:Nonsmoker Start:24-Sep-2018 Instruction Type:Provider Instructions for Treatment How to access health informa tion online Indication:Nonsmoker Start:09-Jul-2018 Instruction Type:Patient Education How to access health informa tion online - Detail Indication:Nonsmoker Start:09-Jul-2018 Instruction Type:Patient Education Patient Instructions Indication:Nonsmoker Start:09-Jul-2018 Instruction Type:Provider Instructions for Treatment How to access health informa tion online Indication:Nonsmoker Start:16-Dec-2017 Instruction Type:Patient Education How to access health informa tion online - Detail Indication:Nonsmoker Start:16-Dec-2017 Instruction Type:Patient Education Patient Instructions Indication:Nonsmoker Start:16-Dec-2017 Instruction Type:Provider Instructions for Treatment How to access health informa tion online Indication:Nonsmoker Start:13-Dec-2017 Instruction Type:Patient Education How to access health informa tion online - Detail Indication:Nonsmoker Start:13-Dec-2017 Instruction Type:Patient Education Patient Instructions Indication:Nonsmoker Start:13-Dec-2017 Instruction Type:Provider Instructions for Treatment How to access health informa tion online Indication:Nonsmoker Start:18-Nov-2017 Instruction Type:Patient Education How to access health informa tion online - Detail Indication:Nonsmoker Start:18-Nov-2017 Instruction Type:Patient Education Patient Instructions Indication:Nonsmoker Start:18-Nov-2017 Instruction Type:Provider Instructions for Treatment How to access health informa tion online Indication:BMI 26.0-26.9,adult Start:22-May-2017 Instruction Type:Patient Education How to access health informa tion online - Detail Indication:BMI 26.0-26.9,adult Start:22-May-2017 Instruction Type:Patient Education Patient Instructions Indication:BMI 26.0-26.9,adult Start:22-May-2017 Instruction Type:Provider Instructions for Treatment How to access health informa tion online Indication:Nonsmoker Start:13-Mar-2017 Instruction Type:Patient Education How to access health informa tion online - Detail Indication:Nonsmoker Start:13-Mar-2017 Instruction Type:Patient Education Patient Instructions Indication:Nonsmoker Start:13-Mar-2017 Instruction Type:Provider Instructions for Treatment How to access health informa tion online Indication:Body mass index 25.0-25.9, adult Start:01-Mar-2017 Instruction Type:Patient Education How to access health informa tion online - Detail Indication:Body mass index 25.0-25.9, adult Start:01-Mar-2017 Instruction Type:Patient Education Patient Instructions Indication:Body mass index 25.0-25.9, adult Start:01-Mar-2017 Instruction Type:Provider Instructions for Treatment How to access health informa tion online Indication:Right knee pain Start:27-Feb-2017 Instruction Type:Patient Education How to access health informa tion online - Detail Indication:Right knee pain Start:27-Feb-2017 Instruction Type:Patient Education Patient Instructions Indication:Right knee pain Start:27-Feb-2017 Instruction Type:Provider Instructions for Treatment How to access health informa tion online Indication:Nonsmoker Start:27-Apr-2016 Instruction Type:Patient Education How to access health informa tion online - Detail Indication:Nonsmoker Start:27-Apr-2016 Instruction Type:Patient Education Patient Instructions Indication:Nonsmoker Start:27-Apr-2016 Instruction Type:Provider Instructions for Treatment How to access health informa tion online Indication:History of Clostridium difficile Start:04-Apr-2015 Instruction Type:Patient Education How to access health informa tion online - Detail Indication:History of Clostridium difficile Start:04-Apr-2015 Instruction Type:Patient Education Patient Instructions Indication:History of Clostridium difficile Start:04-Apr-2015 Instruction Type:Provider Instructions for Treatment Patient Instructions Indication:C. difficile diarrhea Start:14-Mar-2015 Instruction Type:Provider Instructions for Treatment How to access health informa tion online Indication:C. difficile diarrhea Start:14-Mar-2015 Instruction Type:Patient Education How to access health informa tion online - Detail Indication:C. difficile diarrhea Start:14-Mar-2015 Instruction Type:Patient Education [facility]; [facility] Work Phone: Instructions* Name Dates Details Patient Instructions Indication:BMI 26.0-26.9,adult Start:16-Jul-2022 Instruction Type:Provider Instructions for Treatment How to Access Health Informa tion Online using Patient Portal and [employer]rd [employer] Apps Indication:BMI 26.0-26.9,adult Start:16-Jul-2022 Instruction Type:Patient Education Patient Instructions Indication:BMI 26.0-26.9,adult Start:08-Jun-2022 Instruction Type:Provider Instructions for Treatment How to Access Health Informa tion Online using Patient Portal and [employer]rd [employer] Apps Indication:BMI 26.0-26.9,adult Start:08-Jun-2022 Instruction Type:Patient Education Patient Instructions Indication:BMI 24.0-24.9, adult Start:07-Jun-2021 Instruction Type:Provider Instructions for Treatment How to Access Health Informa tion Online using Patient Portal and [employer]rd [employer] Apps Indication:BMI 24.0-24.9, adult Start:07-Jun-2021 Instruction Type:Patient Education Patient Instructions Indication:Nonsmoker Start:13-Dec-2020 Instruction Type:Provider Instructions for Treatment How to Access Health Informa tion Online using Patient Portal and [employer]rd [employer] Apps Indication:Nonsmoker Start:13-Dec-2020 Instruction Type:Patient Education Patient Instructions Indication:BMI 26.0-26.9,adult Start:12-Dec-2020 Instruction Type:Provider Instructions for Treatment How to Access Health Informa tion Online using Patient Portal and [employer]rd [employer] Apps Indication:BMI 26.0-26.9,adult Start:12-Dec-2020 Instruction Type:Patient Education How to Access Health Informa tion Online using Patient Portal and [employer]rd [employer] Apps Indication:Nonsmoker Start:09-Mar-2020 Instruction Type:Patient Education Patient Instructions Indication:Nonsmoker Start:09-Mar-2020 Instruction Type:Provider Instructions for Treatment How to access health informa tion online Indication:Nonsmoker Start:18-Feb-2020 Instruction Type:Patient Education How to access health informa tion online - Detail Indication:Nonsmoker Start:18-Feb-2020 Instruction Type:Patient Education Patient Instructions Indication:Nonsmoker Start:18-Feb-2020 Instruction Type:Provider Instructions for Treatment How to access health informa tion online Indication:Nonsmoker Start:06-Mar-2019 Instruction Type:Patient Education How to access health informa tion online - Detail Indication:Nonsmoker Start:06-Mar-2019 Instruction Type:Patient Education Patient Instructions Indication:Nonsmoker Start:06-Mar-2019 Instruction Type:Provider Instructions for Treatment How to access health informa tion online Indication:Nonsmoker Start:20-Nov-2018 Instruction Type:Patient Education How to access health informa tion online - Detail Indication:Nonsmoker Start:20-Nov-2018 Instruction Type:Patient Education Patient Instructions Indication:Nonsmoker Start:20-Nov-2018 Instruction Type:Provider Instructions for Treatment How to access health informa tion online Indication:Nonsmoker Start:24-Sep-2018 Instruction Type:Patient Education How to access health informa tion online - Detail Indication:Nonsmoker Start:24-Sep-2018 Instruction Type:Patient Education Patient Instructions Indication:Nonsmoker Start:24-Sep-2018 Instruction Type:Provider Instructions for Treatment How to access health informa tion online Indication:Nonsmoker Start:09-Jul-2018 Instruction Type:Patient Education How to access health informa tion online - Detail Indication:Nonsmoker Start:09-Jul-2018 Instruction Type:Patient Education Patient Instructions Indication:Nonsmoker Start:09-Jul-2018 Instruction Type:Provider Instructions for Treatment How to access health informa tion online Indication:Nonsmoker Start:16-Dec-2017 Instruction Type:Patient Education How to access health informa tion online - Detail Indication:Nonsmoker Start:16-Dec-2017 Instruction Type:Patient Education Patient Instructions Indication:Nonsmoker Start:16-Dec-2017 Instruction Type:Provider Instructions for Treatment How to access health informa tion online Indication:Nonsmoker Start:13-Dec-2017 Instruction Type:Patient Education How to access health informa tion online - Detail Indication:Nonsmoker Start:13-Dec-2017 Instruction Type:Patient Education Patient Instructions Indication:Nonsmoker Start:13-Dec-2017 Instruction Type:Provider Instructions for Treatment How to access health informa tion online Indication:Nonsmoker Start:18-Nov-2017 Instruction Type:Patient Education How to access health informa tion online - Detail Indication:Nonsmoker Start:18-Nov-2017 Instruction Type:Patient Education Patient Instructions Indication:Nonsmoker Start:18-Nov-2017 Instruction Type:Provider Instructions for Treatment How to access health informa tion online Indication:BMI 26.0-26.9,adult Start:22-May-2017 Instruction Type:Patient Education How to access health informa tion online - Detail Indication:BMI 26.0-26.9,adult Start:22-May-2017 Instruction Type:Patient Education Patient Instructions Indication:BMI 26.0-26.9,adult Start:22-May-2017 Instruction Type:Provider Instructions for Treatment How to access health informa tion online Indication:Nonsmoker Start:13-Mar-2017 Instruction Type:Patient Education How to access health informa tion online - Detail Indication:Nonsmoker Start:13-Mar-2017 Instruction Type:Patient Education Patient Instructions Indication:Nonsmoker Start:13-Mar-2017 Instruction Type:Provider Instructions for Treatment How to access health informa tion online Indication:Body mass index 25.0-25.9, adult Start:01-Mar-2017 Instruction Type:Patient Education How to access health informa tion online - Detail Indication:Body mass index 25.0-25.9, adult Start:01-Mar-2017 Instruction Type:Patient Education Patient Instructions Indication:Body mass index 25.0-25.9, adult Start:01-Mar-2017 Instruction Type:Provider Instructions for Treatment How to access health informa tion online Indication:Right knee pain Start:27-Feb-2017 Instruction Type:Patient Education How to access health informa tion online - Detail Indication:Right knee pain Start:27-Feb-2017 Instruction Type:Patient Education Patient Instructions Indication:Right knee pain Start:27-Feb-2017 Instruction Type:Provider Instructions for Treatment How to access health informa tion online Indication:Nonsmoker Start:27-Apr-2016 Instruction Type:Patient Education How to access health informa tion online - Detail Indication:Nonsmoker Start:27-Apr-2016 Instruction Type:Patient Education Patient Instructions Indication:Nonsmoker Start:27-Apr-2016 Instruction Type:Provider Instructions for Treatment How to access health informa tion online Indication:History of Clostridium difficile Start:04-Apr-2015 Instruction Type:Patient Education How to access health informa tion online - Detail Indication:History of Clostridium difficile Start:04-Apr-2015 Instruction Type:Patient Education Patient Instructions Indication:History of Clostridium difficile Start:04-Apr-2015 Instruction Type:Provider Instructions for Treatment Patient Instructions Indication:C. difficile diarrhea Start:14-Mar-2015 Instruction Type:Provider Instructions for Treatment How to access health informa tion online Indication:C. difficile diarrhea Start:14-Mar-2015 Instruction Type:Patient Education How to access health informa tion online - Detail Indication:C. difficile diarrhea Start:14-Mar-2015 Instruction Type:Patient Education [facility]; [facility] Work Phone: Instructions* Name Dates Details Patient Instructions Indication:BMI 26.0-26.9,adult Start:16-Jul-2022 Instruction Type:Provider Instructions for Treatment How to Access Health Informa tion Online using Patient Portal and [employer]rd [employer] Apps Indication:BMI 26.0-26.9,adult Start:16-Jul-2022 Instruction Type:Patient Education Patient Instructions Indication:BMI 26.0-26.9,adult Start:08-Jun-2022 Instruction Type:Provider Instructions for Treatment How to Access Health Informa tion Online using Patient Portal and [employer]rd [employer] Apps Indication:BMI 26.0-26.9,adult Start:08-Jun-2022 Instruction Type:Patient Education Patient Instructions Indication:BMI 24.0-24.9, adult Start:07-Jun-2021 Instruction Type:Provider Instructions for Treatment How to Access Health Informa tion Online using Patient Portal and [employer] Apps Indication:BMI 24.0-24.9, adult Start:07-Jun-2021 Instruction Type:Patient Education Patient Instructions Indication:Nonsmoker Start:13-Dec-2020 Instruction Type:Provider Instructions for Treatment How to Access Health Informa tion Online using Patient Portal and [employer] Apps Indication:Nonsmoker Start:13-Dec-2020 Instruction Type:Patient Education Patient Instructions Indication:BMI 26.0-26.9,adult Start:12-Dec-2020 Instruction Type:Provider Instructions for Treatment How to Access Health Informa tion Online using Patient Portal and [employer] Apps Indication:BMI 26.0-26.9,adult Start:12-Dec-2020 Instruction Type:Patient Education How to Access Health Informa tion Online using Patient Portal and [employer]rd [employer] Apps Indication:Nonsmoker Start:09-Mar-2020 Instruction Type:Patient Education Patient Instructions Indication:Nonsmoker Start:09-Mar-2020 Instruction Type:Provider Instructions for Treatment How to access health informa tion online Indication:Nonsmoker Start:18-Feb-2020 Instruction Type:Patient Education How to access health informa tion online - Detail Indication:Nonsmoker Start:18-Feb-2020 Instruction Type:Patient Education Patient Instructions Indication:Nonsmoker Start:18-Feb-2020 Instruction Type:Provider Instructions for Treatment How to access health informa tion online Indication:Nonsmoker Start:06-Mar-2019 Instruction Type:Patient Education How to access health informa tion online - Detail Indication:Nonsmoker Start:06-Mar-2019 Instruction Type:Patient Education Patient Instructions Indication:Nonsmoker Start:06-Mar-2019 Instruction Type:Provider Instructions for Treatment How to access health informa tion online Indication:Nonsmoker Start:20-Nov-2018 Instruction Type:Patient Education How to access health informa tion online - Detail Indication:Nonsmoker Start:20-Nov-2018 Instruction Type:Patient Education Patient Instructions Indication:Nonsmoker Start:20-Nov-2018 Instruction Type:Provider Instructions for Treatment How to access health informa tion online Indication:Nonsmoker Start:24-Sep-2018 Instruction Type:Patient Education How to access health informa tion online - Detail Indication:Nonsmoker Start:24-Sep-2018 Instruction Type:Patient Education Patient Instructions Indication:Nonsmoker Start:24-Sep-2018 Instruction Type:Provider Instructions for Treatment How to access health informa tion online Indication:Nonsmoker Start:09-Jul-2018 Instruction Type:Patient Education How to access health informa tion online - Detail Indication:Nonsmoker Start:09-Jul-2018 Instruction Type:Patient Education Patient Instructions Indication:Nonsmoker Start:09-Jul-2018 Instruction Type:Provider Instructions for Treatment How to access health informa tion online Indication:Nonsmoker Start:16-Dec-2017 Instruction Type:Patient Education How to access health informa tion online - Detail Indication:Nonsmoker Start:16-Dec-2017 Instruction Type:Patient Education Patient Instructions Indication:Nonsmoker Start:16-Dec-2017 Instruction Type:Provider Instructions for Treatment How to access health informa tion online Indication:Nonsmoker Start:13-Dec-2017 Instruction Type:Patient Education How to access health informa tion online - Detail Indication:Nonsmoker Start:13-Dec-2017 Instruction Type:Patient Education Patient Instructions Indication:Nonsmoker Start:13-Dec-2017 Instruction Type:Provider Instructions for Treatment How to access health informa tion online Indication:Nonsmoker Start:18-Nov-2017 Instruction Type:Patient Education How to access health informa tion online - Detail Indication:Nonsmoker Start:18-Nov-2017 Instruction Type:Patient Education Patient Instructions Indication:Nonsmoker Start:18-Nov-2017 Instruction Type:Provider Instructions for Treatment How to access health informa tion online Indication:BMI 26.0-26.9,adult Start:22-May-2017 Instruction Type:Patient Education How to access health informa tion online - Detail Indication:BMI 26.0-26.9,adult Start:22-May-2017 Instruction Type:Patient Education Patient Instructions Indication:BMI 26.0-26.9,adult Start:22-May-2017 Instruction Type:Provider Instructions for Treatment How to access health informa tion online Indication:Nonsmoker Start:13-Mar-2017 Instruction Type:Patient Education How to access health informa tion online - Detail Indication:Nonsmoker Start:13-Mar-2017 Instruction Type:Patient Education Patient Instructions Indication:Nonsmoker Start:13-Mar-2017 Instruction Type:Provider Instructions for Treatment How to access health informa tion online Indication:Body mass index 25.0-25.9, adult Start:01-Mar-2017 Instruction Type:Patient Education How to access health informa tion online - Detail Indication:Body mass index 25.0-25.9, adult Start:01-Mar-2017 Instruction Type:Patient Education Patient Instructions Indication:Body mass index 25.0-25.9, adult Start:01-Mar-2017 Instruction Type:Provider Instructions for Treatment How to access health informa tion online Indication:Right knee pain Start:27-Feb-2017 Instruction Type:Patient Education How to access health informa tion online - Detail Indication:Right knee pain Start:27-Feb-2017 Instruction Type:Patient Education Patient Instructions Indication:Right knee pain Start:27-Feb-2017 Instruction Type:Provider Instructions for Treatment How to access health informa tion online Indication:Nonsmoker Start:27-Apr-2016 Instruction Type:Patient Education How to access health informa tion online - Detail Indication:Nonsmoker Start:27-Apr-2016 Instruction Type:Patient Education Patient Instructions Indication:Nonsmoker Start:27-Apr-2016 Instruction Type:Provider Instructions for Treatment How to access health informa tion online Indication:History of Clostridium difficile Start:04-Apr-2015 Instruction Type:Patient Education How to access health informa tion online - Detail Indication:History of Clostridium difficile Start:04-Apr-2015 Instruction Type:Patient Education Patient Instructions Indication:History of Clostridium difficile Start:04-Apr-2015 Instruction Type:Provider Instructions for Treatment Patient Instructions Indication:C. difficile diarrhea Start:14-Mar-2015 Instruction Type:Provider Instructions for Treatment How to access health informa tion online Indication:C. difficile diarrhea Start:14-Mar-2015 Instruction Type:Patient Education How to access health informa tion online - Detail Indication:C. difficile diarrhea Start:14-Mar-2015 Instruction Type:Patient Education [facility]; [facility] Work Phone: Instructions* Name Dates Details How to Access Health Informa tion Online using Patient Portal and [employer] Apps Indication:Nonsmoker Start:05-Oct-2022 Instruction Type:Patient Education Patient Instructions Indication:Nonsmoker Start:05-Oct-2022 Instruction Type:Provider Instructions for Treatment Patient Instructions Indication:BMI 26.0-26.9,adult Start:16-Jul-2022 Instruction Type:Provider Instructions for Treatment How to Access Health Informa tion Online using Patient Portal and [employer]rd [employer] Apps Indication:BMI 26.0-26.9,adult Start:16-Jul-2022 Instruction Type:Patient Education Patient Instructions Indication:BMI 26.0-26.9,adult Start:08-Jun-2022 Instruction Type:Provider Instructions for Treatment How to Access Health Informa tion Online using Patient Portal and [employer] Apps Indication:BMI 26.0-26.9,adult Start:08-Jun-2022 Instruction Type:Patient Education Patient Instructions Indication:BMI 24.0-24.9, adult Start:07-Jun-2021 Instruction Type:Provider Instructions for Treatment How to Access Health Informa tion Online using Patient Portal and [employer]rd [employer] Apps Indication:BMI 24.0-24.9, adult Start:07-Jun-2021 Instruction Type:Patient Education Patient Instructions Indication:Nonsmoker Start:13-Dec-2020 Instruction Type:Provider Instructions for Treatment How to Access Health Informa tion Online using Patient Portal and [employer] Apps Indication:Nonsmoker Start:13-Dec-2020 Instruction Type:Patient Education Patient Instructions Indication:BMI 26.0-26.9,adult Start:12-Dec-2020 Instruction Type:Provider Instructions for Treatment How to Access Health Informa tion Online using Patient Portal and [employer] Apps Indication:BMI 26.0-26.9,adult Start:12-Dec-2020 Instruction Type:Patient Education How to Access Health Informa tion Online using Patient Portal and [employer] Apps Indication:Nonsmoker Start:09-Mar-2020 Instruction Type:Patient Education Patient Instructions Indication:Nonsmoker Start:09-Mar-2020 Instruction Type:Provider Instructions for Treatment How to access health informa tion online Indication:Nonsmoker Start:18-Feb-2020 Instruction Type:Patient Education How to access health informa tion online - Detail Indication:Nonsmoker Start:18-Feb-2020 Instruction Type:Patient Education Patient Instructions Indication:Nonsmoker Start:18-Feb-2020 Instruction Type:Provider Instructions for Treatment How to access health informa tion online Indication:Nonsmoker Start:06-Mar-2019 Instruction Type:Patient Education How to access health informa tion online - Detail Indication:Nonsmoker Start:06-Mar-2019 Instruction Type:Patient Education Patient Instructions Indication:Nonsmoker Start:06-Mar-2019 Instruction Type:Provider Instructions for Treatment How to access health informa tion online Indication:Nonsmoker Start:20-Nov-2018 Instruction Type:Patient Education How to access health informa tion online - Detail Indication:Nonsmoker Start:20-Nov-2018 Instruction Type:Patient Education Patient Instructions Indication:Nonsmoker Start:20-Nov-2018 Instruction Type:Provider Instructions for Treatment How to access health informa tion online Indication:Nonsmoker Start:24-Sep-2018 Instruction Type:Patient Education How to access health informa tion online - Detail Indication:Nonsmoker Start:24-Sep-2018 Instruction Type:Patient Education Patient Instructions Indication:Nonsmoker Start:24-Sep-2018 Instruction Type:Provider Instructions for Treatment How to access health informa tion online Indication:Nonsmoker Start:09-Jul-2018 Instruction Type:Patient Education How to access health informa tion online - Detail Indication:Nonsmoker Start:09-Jul-2018 Instruction Type:Patient Education Patient Instructions Indication:Nonsmoker Start:09-Jul-2018 Instruction Type:Provider Instructions for Treatment How to access health informa tion online Indication:Nonsmoker Start:16-Dec-2017 Instruction Type:Patient Education How to access health informa tion online - Detail Indication:Nonsmoker Start:16-Dec-2017 Instruction Type:Patient Education Patient Instructions Indication:Nonsmoker Start:16-Dec-2017 Instruction Type:Provider Instructions for Treatment How to access health informa tion online Indication:Nonsmoker Start:13-Dec-2017 Instruction Type:Patient Education How to access health informa tion online - Detail Indication:Nonsmoker Start:13-Dec-2017 Instruction Type:Patient Education Patient Instructions Indication:Nonsmoker Start:13-Dec-2017 Instruction Type:Provider Instructions for Treatment How to access health informa tion online Indication:Nonsmoker Start:18-Nov-2017 Instruction Type:Patient Education How to access health informa tion online - Detail Indication:Nonsmoker Start:18-Nov-2017 Instruction Type:Patient Education Patient Instructions Indication:Nonsmoker Start:18-Nov-2017 Instruction Type:Provider Instructions for Treatment How to access health informa tion online Indication:BMI 26.0-26.9,adult Start:22-May-2017 Instruction Type:Patient Education How to access health informa tion online - Detail Indication:BMI 26.0-26.9,adult Start:22-May-2017 Instruction Type:Patient Education Patient Instructions Indication:BMI 26.0-26.9,adult Start:22-May-2017 Instruction Type:Provider Instructions for Treatment How to access health informa tion online Indication:Nonsmoker Start:13-Mar-2017 Instruction Type:Patient Education How to access health informa tion online - Detail Indication:Nonsmoker Start:13-Mar-2017 Instruction Type:Patient Education Patient Instructions Indication:Nonsmoker Start:13-Mar-2017 Instruction Type:Provider Instructions for Treatment How to access health informa tion online Indication:Body mass index 25.0-25.9, adult Start:01-Mar-2017 Instruction Type:Patient Education How to access health informa tion online - Detail Indication:Body mass index 25.0-25.9, adult Start:01-Mar-2017 Instruction Type:Patient Education Patient Instructions Indication:Body mass index 25.0-25.9, adult Start:01-Mar-2017 Instruction Type:Provider Instructions for Treatment How to access health informa tion online Indication:Right knee pain Start:27-Feb-2017 Instruction Type:Patient Education How to access health informa tion online - Detail Indication:Right knee pain Start:27-Feb-2017 Instruction Type:Patient Education Patient Instructions Indication:Right knee pain Start:27-Feb-2017 Instruction Type:Provider Instructions for Treatment How to access health informa tion online Indication:Nonsmoker Start:27-Apr-2016 Instruction Type:Patient Education How to access health informa tion online - Detail Indication:Nonsmoker Start:27-Apr-2016 Instruction Type:Patient Education Patient Instructions Indication:Nonsmoker Start:27-Apr-2016 Instruction Type:Provider Instructions for Treatment How to access health informa tion online Indication:History of Clostridium difficile Start:04-Apr-2015 Instruction Type:Patient Education How to access health informa tion online - Detail Indication:History of Clostridium difficile Start:04-Apr-2015 Instruction Type:Patient Education Patient Instructions Indication:History of Clostridium difficile Start:04-Apr-2015 Instruction Type:Provider Instructions for Treatment Patient Instructions Indication:C. difficile diarrhea Start:14-Mar-2015 Instruction Type:Provider Instructions for Treatment How to access health informa tion online Indication:C. difficile diarrhea Start:14-Mar-2015 Instruction Type:Patient Education How to access health informa tion online - Detail Indication:C. difficile diarrhea Start:14-Mar-2015 Instruction Type:Patient Education [facility]; [facility] Work Phone: Instructions* Name Dates Details Patient Instructions Indication:BMI 26.0-26.9,adult Start:14-Jan-2023 Instruction Type:Provider Instructions for Treatment How to Access Health Informa tion Online using Patient Portal and [employer] Apps Indication:BMI 26.0-26.9,adult Start:14-Jan-2023 Instruction Type:Patient Education How to Access Health Informa tion Online using Patient Portal and [employer] Apps Indication:Nonsmoker Start:05-Oct-2022 Instruction Type:Patient Education Patient Instructions Indication:Nonsmoker Start:05-Oct-2022 Instruction Type:Provider Instructions for Treatment Patient Instructions Indication:BMI 26.0-26.9,adult Start:16-Jul-2022 Instruction Type:Provider Instructions for Treatment How to Access Health Informa tion Online using Patient Portal and [employer] Apps Indication:BMI 26.0-26.9,adult Start:16-Jul-2022 Instruction Type:Patient Education Patient Instructions Indication:BMI 26.0-26.9,adult Start:08-Jun-2022 Instruction Type:Provider Instructions for Treatment How to Access Health Informa tion Online using Patient Portal and [employer] Apps Indication:BMI 26.0-26.9,adult Start:08-Jun-2022 Instruction Type:Patient Education Patient Instructions Indication:BMI 24.0-24.9, adult Start:07-Jun-2021 Instruction Type:Provider Instructions for Treatment How to Access Health Informa tion Online using Patient Portal and [employer] Apps Indication:BMI 24.0-24.9, adult Start:07-Jun-2021 Instruction Type:Patient Education Patient Instructions Indication:Nonsmoker Start:13-Dec-2020 Instruction Type:Provider Instructions for Treatment How to Access Health Informa tion Online using Patient Portal and [employer] Apps Indication:Nonsmoker Start:13-Dec-2020 Instruction Type:Patient Education Patient Instructions Indication:BMI 26.0-26.9,adult Start:12-Dec-2020 Instruction Type:Provider Instructions for Treatment How to Access Health Informa tion Online using Patient Portal and [employer] Apps Indication:BMI 26.0-26.9,adult Start:12-Dec-2020 Instruction Type:Patient Education How to Access Health Informa tion Online using Patient Portal and [employer]rd [employer] Apps Indication:Nonsmoker Start:09-Mar-2020 Instruction Type:Patient Education Patient Instructions Indication:Nonsmoker Start:09-Mar-2020 Instruction Type:Provider Instructions for Treatment How to access health informa tion online Indication:Nonsmoker Start:18-Feb-2020 Instruction Type:Patient Education How to access health informa tion online - Detail Indication:Nonsmoker Start:18-Feb-2020 Instruction Type:Patient Education Patient Instructions Indication:Nonsmoker Start:18-Feb-2020 Instruction Type:Provider Instructions for Treatment How to access health informa tion online Indication:Nonsmoker Start:06-Mar-2019 Instruction Type:Patient Education How to access health informa tion online - Detail Indication:Nonsmoker Start:06-Mar-2019 Instruction Type:Patient Education Patient Instructions Indication:Nonsmoker Start:06-Mar-2019 Instruction Type:Provider Instructions for Treatment How to access health informa tion online Indication:Nonsmoker Start:20-Nov-2018 Instruction Type:Patient Education How to access health informa tion online - Detail Indication:Nonsmoker Start:20-Nov-2018 Instruction Type:Patient Education Patient Instructions Indication:Nonsmoker Start:20-Nov-2018 Instruction Type:Provider Instructions for Treatment How to access health informa tion online Indication:Nonsmoker Start:24-Sep-2018 Instruction Type:Patient Education How to access health informa tion online - Detail Indication:Nonsmoker Start:24-Sep-2018 Instruction Type:Patient Education Patient Instructions Indication:Nonsmoker Start:24-Sep-2018 Instruction Type:Provider Instructions for Treatment How to access health informa tion online Indication:Nonsmoker Start:09-Jul-2018 Instruction Type:Patient Education How to access health informa tion online - Detail Indication:Nonsmoker Start:09-Jul-2018 Instruction Type:Patient Education Patient Instructions Indication:Nonsmoker Start:09-Jul-2018 Instruction Type:Provider Instructions for Treatment How to access health informa tion online Indication:Nonsmoker Start:16-Dec-2017 Instruction Type:Patient Education How to access health informa tion online - Detail Indication:Nonsmoker Start:16-Dec-2017 Instruction Type:Patient Education Patient Instructions Indication:Nonsmoker Start:16-Dec-2017 Instruction Type:Provider Instructions for Treatment How to access health informa tion online Indication:Nonsmoker Start:13-Dec-2017 Instruction Type:Patient Education How to access health informa tion online - Detail Indication:Nonsmoker Start:13-Dec-2017 Instruction Type:Patient Education Patient Instructions Indication:Nonsmoker Start:13-Dec-2017 Instruction Type:Provider Instructions for Treatment How to access health informa tion online Indication:Nonsmoker Start:18-Nov-2017 Instruction Type:Patient Education How to access health informa tion online - Detail Indication:Nonsmoker Start:18-Nov-2017 Instruction Type:Patient Education Patient Instructions Indication:Nonsmoker Start:18-Nov-2017 Instruction Type:Provider Instructions for Treatment How to access health informa tion online Indication:BMI 26.0-26.9,adult Start:22-May-2017 Instruction Type:Patient Education How to access health informa tion online - Detail Indication:BMI 26.0-26.9,adult Start:22-May-2017 Instruction Type:Patient Education Patient Instructions Indication:BMI 26.0-26.9,adult Start:22-May-2017 Instruction Type:Provider Instructions for Treatment How to access health informa tion online Indication:Nonsmoker Start:13-Mar-2017 Instruction Type:Patient Education How to access health informa tion online - Detail Indication:Nonsmoker Start:13-Mar-2017 Instruction Type:Patient Education Patient Instructions Indication:Nonsmoker Start:13-Mar-2017 Instruction Type:Provider Instructions for Treatment How to access health informa tion online Indication:Body mass index 25.0-25.9, adult Start:01-Mar-2017 Instruction Type:Patient Education How to access health informa tion online - Detail Indication:Body mass index 25.0-25.9, adult Start:01-Mar-2017 Instruction Type:Patient Education Patient Instructions Indication:Body mass index 25.0-25.9, adult Start:01-Mar-2017 Instruction Type:Provider Instructions for Treatment How to access health informa tion online Indication:Right knee pain Start:27-Feb-2017 Instruction Type:Patient Education How to access health informa tion online - Detail Indication:Right knee pain Start:27-Feb-2017 Instruction Type:Patient Education Patient Instructions Indication:Right knee pain Start:27-Feb-2017 Instruction Type:Provider Instructions for Treatment How to access health informa tion online Indication:Nonsmoker Start:27-Apr-2016 Instruction Type:Patient Education How to access health informa tion online - Detail Indication:Nonsmoker Start:27-Apr-2016 Instruction Type:Patient Education Patient Instructions Indication:Nonsmoker Start:27-Apr-2016 Instruction Type:Provider Instructions for Treatment How to access health informa tion online Indication:History of Clostridium difficile Start:04-Apr-2015 Instruction Type:Patient Education How to access health informa tion online - Detail Indication:History of Clostridium difficile Start:04-Apr-2015 Instruction Type:Patient Education Patient Instructions Indication:History of Clostridium difficile Start:04-Apr-2015 Instruction Type:Provider Instructions for Treatment Patient Instructions Indication:C. difficile diarrhea Start:14-Mar-2015 Instruction Type:Provider Instructions for Treatment How to access health informa tion online Indication:C. difficile diarrhea Start:14-Mar-2015 Instruction Type:Patient Education How to access health informa tion online - Detail Indication:C. difficile diarrhea Start:14-Mar-2015 Instruction Type:Patient Education [facility]; [facility] Work Phone: Instructions* Name Dates Details Patient Instructions Indication:BMI 26.0-26.9,adult Start:14-Jan-2023 Instruction Type:Provider Instructions for Treatment How to Access Health Informa tion Online using Patient Portal and [employer] Apps Indication:BMI 26.0-26.9,adult Start:14-Jan-2023 Instruction Type:Patient Education How to Access Health Informa tion Online using Patient Portal and [employer] Apps Indication:Nonsmoker Start:05-Oct-2022 Instruction Type:Patient Education Patient Instructions Indication:Nonsmoker Start:05-Oct-2022 Instruction Type:Provider Instructions for Treatment Patient Instructions Indication:BMI 26.0-26.9,adult Start:16-Jul-2022 Instruction Type:Provider Instructions for Treatment How to Access Health Informa tion Online using Patient Portal and [employer] Apps Indication:BMI 26.0-26.9,adult Start:16-Jul-2022 Instruction Type:Patient Education Patient Instructions Indication:BMI 26.0-26.9,adult Start:08-Jun-2022 Instruction Type:Provider Instructions for Treatment How to Access Health Informa tion Online using Patient Portal and [employer] Apps Indication:BMI 26.0-26.9,adult Start:08-Jun-2022 Instruction Type:Patient Education Patient Instructions Indication:BMI 24.0-24.9, adult Start:07-Jun-2021 Instruction Type:Provider Instructions for Treatment How to Access Health Informa tion Online using Patient Portal and [employer] Apps Indication:BMI 24.0-24.9, adult Start:07-Jun-2021 Instruction Type:Patient Education Patient Instructions Indication:Nonsmoker Start:13-Dec-2020 Instruction Type:Provider Instructions for Treatment How to Access Health Informa tion Online using Patient Portal and [employer] Apps Indication:Nonsmoker Start:13-Dec-2020 Instruction Type:Patient Education Patient Instructions Indication:BMI 26.0-26.9,adult Start:12-Dec-2020 Instruction Type:Provider Instructions for Treatment How to Access Health Informa tion Online using Patient Portal and [employer] Apps Indication:BMI 26.0-26.9,adult Start:12-Dec-2020 Instruction Type:Patient Education How to Access Health Informa tion Online using Patient Portal and [employer] Apps Indication:Nonsmoker Start:09-Mar-2020 Instruction Type:Patient Education Patient Instructions Indication:Nonsmoker Start:09-Mar-2020 Instruction Type:Provider Instructions for Treatment How to access health informa tion online Indication:Nonsmoker Start:18-Feb-2020 Instruction Type:Patient Education How to access health informa tion online - Detail Indication:Nonsmoker Start:18-Feb-2020 Instruction Type:Patient Education Patient Instructions Indication:Nonsmoker Start:18-Feb-2020 Instruction Type:Provider Instructions for Treatment How to access health informa tion online Indication:Nonsmoker Start:06-Mar-2019 Instruction Type:Patient Education How to access health informa tion online - Detail Indication:Nonsmoker Start:06-Mar-2019 Instruction Type:Patient Education Patient Instructions Indication:Nonsmoker Start:06-Mar-2019 Instruction Type:Provider Instructions for Treatment How to access health informa tion online Indication:Nonsmoker Start:20-Nov-2018 Instruction Type:Patient Education How to access health informa tion online - Detail Indication:Nonsmoker Start:20-Nov-2018 Instruction Type:Patient Education Patient Instructions Indication:Nonsmoker Start:20-Nov-2018 Instruction Type:Provider Instructions for Treatment How to access health informa tion online Indication:Nonsmoker Start:24-Sep-2018 Instruction Type:Patient Education How to access health informa tion online - Detail Indication:Nonsmoker Start:24-Sep-2018 Instruction Type:Patient Education Patient Instructions Indication:Nonsmoker Start:24-Sep-2018 Instruction Type:Provider Instructions for Treatment How to access health informa tion online Indication:Nonsmoker Start:09-Jul-2018 Instruction Type:Patient Education How to access health informa tion online - Detail Indication:Nonsmoker Start:09-Jul-2018 Instruction Type:Patient Education Patient Instructions Indication:Nonsmoker Start:09-Jul-2018 Instruction Type:Provider Instructions for Treatment How to access health informa tion online Indication:Nonsmoker Start:16-Dec-2017 Instruction Type:Patient Education How to access health informa tion online - Detail Indication:Nonsmoker Start:16-Dec-2017 Instruction Type:Patient Education Patient Instructions Indication:Nonsmoker Start:16-Dec-2017 Instruction Type:Provider Instructions for Treatment How to access health informa tion online Indication:Nonsmoker Start:13-Dec-2017 Instruction Type:Patient Education How to access health informa tion online - Detail Indication:Nonsmoker Start:13-Dec-2017 Instruction Type:Patient Education Patient Instructions Indication:Nonsmoker Start:13-Dec-2017 Instruction Type:Provider Instructions for Treatment How to access health informa tion online Indication:Nonsmoker Start:18-Nov-2017 Instruction Type:Patient Education How to access health informa tion online - Detail Indication:Nonsmoker Start:18-Nov-2017 Instruction Type:Patient Education Patient Instructions Indication:Nonsmoker Start:18-Nov-2017 Instruction Type:Provider Instructions for Treatment How to access health informa tion online Indication:BMI 26.0-26.9,adult Start:22-May-2017 Instruction Type:Patient Education How to access health informa tion online - Detail Indication:BMI 26.0-26.9,adult Start:22-May-2017 Instruction Type:Patient Education Patient Instructions Indication:BMI 26.0-26.9,adult Start:22-May-2017 Instruction Type:Provider Instructions for Treatment How to access health informa tion online Indication:Nonsmoker Start:13-Mar-2017 Instruction Type:Patient Education How to access health informa tion online - Detail Indication:Nonsmoker Start:13-Mar-2017 Instruction Type:Patient Education Patient Instructions Indication:Nonsmoker Start:13-Mar-2017 Instruction Type:Provider Instructions for Treatment How to access health informa tion online Indication:Body mass index 25.0-25.9, adult Start:01-Mar-2017 Instruction Type:Patient Education How to access health informa tion online - Detail Indication:Body mass index 25.0-25.9, adult Start:01-Mar-2017 Instruction Type:Patient Education Patient Instructions Indication:Body mass index 25.0-25.9, adult Start:01-Mar-2017 Instruction Type:Provider Instructions for Treatment How to access health informa tion online Indication:Right knee pain Start:27-Feb-2017 Instruction Type:Patient Education How to access health informa tion online - Detail Indication:Right knee pain Start:27-Feb-2017 Instruction Type:Patient Education Patient Instructions Indication:Right knee pain Start:27-Feb-2017 Instruction Type:Provider Instructions for Treatment How to access health informa tion online Indication:Nonsmoker Start:27-Apr-2016 Instruction Type:Patient Education How to access health informa tion online - Detail Indication:Nonsmoker Start:27-Apr-2016 Instruction Type:Patient Education Patient Instructions Indication:Nonsmoker Start:27-Apr-2016 Instruction Type:Provider Instructions for Treatment How to access health informa tion online Indication:History of Clostridium difficile Start:04-Apr-2015 Instruction Type:Patient Education How to access health informa tion online - Detail Indication:History of Clostridium difficile Start:04-Apr-2015 Instruction Type:Patient Education Patient Instructions Indication:History of Clostridium difficile Start:04-Apr-2015 Instruction Type:Provider Instructions for Treatment Patient Instructions Indication:C. difficile diarrhea Start:14-Mar-2015 Instruction Type:Provider Instructions for Treatment How to access health informa tion online Indication:C. difficile diarrhea Start:14-Mar-2015 Instruction Type:Patient Education How to access health informa tion online - Detail Indication:C. difficile diarrhea Start:14-Mar-2015 Instruction Type:Patient Education [facility]; [facility] Work Phone: Instructions* Name Dates Details Patient Instructions Indication:BMI 26.0-26.9,adult Start:14-Jan-2023 Instruction Type:Provider Instructions for Treatment How to Access Health Informa tion Online using Patient Portal and [employer] Apps Indication:BMI 26.0-26.9,adult Start:14-Jan-2023 Instruction Type:Patient Education How to Access Health Informa tion Online using Patient Portal and [employer] Apps Indication:Nonsmoker Start:05-Oct-2022 Instruction Type:Patient Education Patient Instructions Indication:Nonsmoker Start:05-Oct-2022 Instruction Type:Provider Instructions for Treatment Patient Instructions Indication:BMI 26.0-26.9,adult Start:16-Jul-2022 Instruction Type:Provider Instructions for Treatment How to Access Health Informa tion Online using Patient Portal and [employer] Apps Indication:BMI 26.0-26.9,adult Start:16-Jul-2022 Instruction Type:Patient Education Patient Instructions Indication:BMI 26.0-26.9,adult Start:08-Jun-2022 Instruction Type:Provider Instructions for Treatment How to Access Health Informa tion Online using Patient Portal and [employer] Apps Indication:BMI 26.0-26.9,adult Start:08-Jun-2022 Instruction Type:Patient Education Patient Instructions Indication:BMI 24.0-24.9, adult Start:07-Jun-2021 Instruction Type:Provider Instructions for Treatment How to Access Health Informa tion Online using Patient Portal and [employer] Apps Indication:BMI 24.0-24.9, adult Start:07-Jun-2021 Instruction Type:Patient Education Patient Instructions Indication:Nonsmoker Start:13-Dec-2020 Instruction Type:Provider Instructions for Treatment How to Access Health Informa tion Online using Patient Portal and [employer] Apps Indication:Nonsmoker Start:13-Dec-2020 Instruction Type:Patient Education Patient Instructions Indication:BMI 26.0-26.9,adult Start:12-Dec-2020 Instruction Type:Provider Instructions for Treatment How to Access Health Informa tion Online using Patient Portal and [employer] Apps Indication:BMI 26.0-26.9,adult Start:12-Dec-2020 Instruction Type:Patient Education How to Access Health Informa tion Online using Patient Portal and [employer] Apps Indication:Nonsmoker Start:09-Mar-2020 Instruction Type:Patient Education Patient Instructions Indication:Nonsmoker Start:09-Mar-2020 Instruction Type:Provider Instructions for Treatment How to access health informa tion online Indication:Nonsmoker Start:18-Feb-2020 Instruction Type:Patient Education How to access health informa tion online - Detail Indication:Nonsmoker Start:18-Feb-2020 Instruction Type:Patient Education Patient Instructions Indication:Nonsmoker Start:18-Feb-2020 Instruction Type:Provider Instructions for Treatment How to access health informa tion online Indication:Nonsmoker Start:06-Mar-2019 Instruction Type:Patient Education How to access health informa tion online - Detail Indication:Nonsmoker Start:06-Mar-2019 Instruction Type:Patient Education Patient Instructions Indication:Nonsmoker Start:06-Mar-2019 Instruction Type:Provider Instructions for Treatment How to access health informa tion online Indication:Nonsmoker Start:20-Nov-2018 Instruction Type:Patient Education How to access health informa tion online - Detail Indication:Nonsmoker Start:20-Nov-2018 Instruction Type:Patient Education Patient Instructions Indication:Nonsmoker Start:20-Nov-2018 Instruction Type:Provider Instructions for Treatment How to access health informa tion online Indication:Nonsmoker Start:24-Sep-2018 Instruction Type:Patient Education How to access health informa tion online - Detail Indication:Nonsmoker Start:24-Sep-2018 Instruction Type:Patient Education Patient Instructions Indication:Nonsmoker Start:24-Sep-2018 Instruction Type:Provider Instructions for Treatment How to access health informa tion online Indication:Nonsmoker Start:09-Jul-2018 Instruction Type:Patient Education How to access health informa tion online - Detail Indication:Nonsmoker Start:09-Jul-2018 Instruction Type:Patient Education Patient Instructions Indication:Nonsmoker Start:09-Jul-2018 Instruction Type:Provider Instructions for Treatment How to access health informa tion online Indication:Nonsmoker Start:16-Dec-2017 Instruction Type:Patient Education How to access health informa tion online - Detail Indication:Nonsmoker Start:16-Dec-2017 Instruction Type:Patient Education Patient Instructions Indication:Nonsmoker Start:16-Dec-2017 Instruction Type:Provider Instructions for Treatment How to access health informa tion online Indication:Nonsmoker Start:13-Dec-2017 Instruction Type:Patient Education How to access health informa tion online - Detail Indication:Nonsmoker Start:13-Dec-2017 Instruction Type:Patient Education Patient Instructions Indication:Nonsmoker Start:13-Dec-2017 Instruction Type:Provider Instructions for Treatment How to access health informa tion online Indication:Nonsmoker Start:18-Nov-2017 Instruction Type:Patient Education How to access health informa tion online - Detail Indication:Nonsmoker Start:18-Nov-2017 Instruction Type:Patient Education Patient Instructions Indication:Nonsmoker Start:18-Nov-2017 Instruction Type:Provider Instructions for Treatment How to access health informa tion online Indication:BMI 26.0-26.9,adult Start:22-May-2017 Instruction Type:Patient Education How to access health informa tion online - Detail Indication:BMI 26.0-26.9,adult Start:22-May-2017 Instruction Type:Patient Education Patient Instructions Indication:BMI 26.0-26.9,adult Start:22-May-2017 Instruction Type:Provider Instructions for Treatment How to access health informa tion online Indication:Nonsmoker Start:13-Mar-2017 Instruction Type:Patient Education How to access health informa tion online - Detail Indication:Nonsmoker Start:13-Mar-2017 Instruction Type:Patient Education Patient Instructions Indication:Nonsmoker Start:13-Mar-2017 Instruction Type:Provider Instructions for Treatment How to access health informa tion online Indication:Body mass index 25.0-25.9, adult Start:01-Mar-2017 Instruction Type:Patient Education How to access health informa tion online - Detail Indication:Body mass index 25.0-25.9, adult Start:01-Mar-2017 Instruction Type:Patient Education Patient Instructions Indication:Body mass index 25.0-25.9, adult Start:01-Mar-2017 Instruction Type:Provider Instructions for Treatment How to access health informa tion online Indication:Right knee pain Start:27-Feb-2017 Instruction Type:Patient Education How to access health informa tion online - Detail Indication:Right knee pain Start:27-Feb-2017 Instruction Type:Patient Education Patient Instructions Indication:Right knee pain Start:27-Feb-2017 Instruction Type:Provider Instructions for Treatment How to access health informa tion online Indication:Nonsmoker Start:27-Apr-2016 Instruction Type:Patient Education How to access health informa tion online - Detail Indication:Nonsmoker Start:27-Apr-2016 Instruction Type:Patient Education Patient Instructions Indication:Nonsmoker Start:27-Apr-2016 Instruction Type:Provider Instructions for Treatment How to access health informa tion online Indication:History of Clostridium difficile Start:04-Apr-2015 Instruction Type:Patient Education How to access health informa tion online - Detail Indication:History of Clostridium difficile Start:04-Apr-2015 Instruction Type:Patient Education Patient Instructions Indication:History of Clostridium difficile Start:04-Apr-2015 Instruction Type:Provider Instructions for Treatment Patient Instructions Indication:C. difficile diarrhea Start:14-Mar-2015 Instruction Type:Provider Instructions for Treatment How to access health informa tion online Indication:C. difficile diarrhea Start:14-Mar-2015 Instruction Type:Patient Education How to access health informa tion online - Detail Indication:C. difficile diarrhea Start:14-Mar-2015 Instruction Type:Patient Education [facility]; [facility] Work Phone: progress note No data available for this section [facility] Reason for referral (narrative)No reason for referral information availableWWestern [facility] Work Phone: Family History Unknown Family Member Name Dates Details Family Members In General Comments:[place], Heart/Lung di sease Status:Active Unknown Family Member Name Dates Details Family Members In General Comments:[place], Heart/Lung di sease Status:Active Unknown Family Member Name Dates Details Family Members In General Comments:[place], Heart/Lung di sease Status:Active Unknown Family Member Name Dates Details Family Members In General Comments:[place], Heart/Lung di sease Status:Active Unknown Family Member Name Dates Details Family Members In General Comments:[place], Heart/Lung di sease Status:Active Unknown Family Member Name Dates Details Family Members In General Comments:[place], Heart/Lung di sease Status:Active Unknown Family Member Name Dates Details Family Members In General Comments:[place], Heart/Lung di sease Status:Active Unknown Family Member Name Dates Details Family Members In General Comments:[place], Heart/Lung di sease Status:Active Unknown Family Member Name Dates Details Family Members In General Comments:[place], Heart/Lung di sease Status:Active Unknown Family Member Name Dates Details Family Members In General Comments:[place], Heart/Lung di sease Status:Active Unknown Family Member Name Dates Details Family Members In General Comments:[place], Heart/Lung di sease Status:Active Unknown Family Member Name Dates Details Family Members In General Comments:[place], Heart/Lung di sease Status:Active Unknown Family Member Name Dates Details Family Members In General Comments:[place], Heart/Lung di sease Status:Active Unknown Family Member Name Dates Details Family Members In General Comments:[place], Heart/Lung di sease Status:Active Unknown Family Member Name Dates Details Family Members In General Comments:[place], Heart/Lung di sease Status:Active Relationship Condition Age at Onset Recorded Date/T orestes Unknown Family History?- Unknown October 8:52am Family History?- Unknown March [id number] 12:02am Unknown Family Member Name Dates Details Family Members In General Comments:[place], Heart/Lung di sease Status:Active Relationship Condition Age at Onset Recorded Date/T oerstes Unknown Family History?- Unknown October 7:52am Family History?- Unknown March 222014 11:02pm Unknown Family Member Name Dates Details Family Members In General Comments:ETOH, Heart/Lung di sease Status:Active Unknown Family Member Name Dates Details Family Members In General Comments:ETOH, Heart/Lung di sease Status:Active Unknown Family Member Name Dates Details Family Members In General Comments:ETOH, Heart/Lung di sease Status:Active Unknown Family Member Name Dates Details Family Members In General Comments:ETOH, Heart/Lung di sease Status:Active Unknown Family Member Name Dates Details Family Members In General Comments:ETOH, Heart/Lung di sease Status:Active Unknown Family Member Name Dates Details Family Members In General Comments:ETOH, Heart/Lung di sease Status:Active Unknown Family Member Name Dates Details Family Members In General Comments:ETOH, Heart/Lung di sease Status:Active Unknown Family Member Name Dates Details Family Members In General Comments:ETOH, Heart/Lung di sease Status:Active Unknown Family Member Name Dates Details Family Members In General Comments:ETOH, Heart/Lung di sease Status:Active Relationship Condition Age at Onset Recorded Date/T orestes mother Arthritis Unknown mother Cardiac disease Unknown father Cardiac disease Unknown mother Seizure Unknown mother Cerebrovascular accident (CVA) Unknown Instructions Name Dates Details Nonsmoker : How to access he alth information online Indication:Nonsmoker Nonsmoker : How to access he alth information online - Detail Indication:Nonsmoker Nonsmoker : Patient Instruct ions Indication:Nonsmoker BMI 26.0-26.9,adult : How to access health information online Indication:BMI 26.0-26.9,adult BMI 26.0-26.9,adult : How to access health information online - Detail Indication:BMI 26.0-26.9,adult BMI 26.0-26.9,adult : Patien t Instructions Indication:BMI 26.0-26.9,adult Body mass index 25.0-25.9, a dult : How to access health information online Indication:Body mass index 25.0-25.9, adult Body mass index 25.0-25.9, a dult : How to access health information online - Detail Indication:Body mass index 25.0-25.9, adult Body mass index 25.0-25.9, a dult : Patient Instructions Indication:Body mass index 25.0-25.9, adult Right knee pain : How to acc ess health information online Indication:Right knee pain Right knee pain : How to acc ess health information online - Detail Indication:Right knee pain Right knee pain : Patient In structions Indication:Right knee pain History of Clostridium diffi cile : How to access health information online Indication:History of Clostridium difficile History of Clostridium diffi cile : How to access health information online - Detail Indication:History of Clostridium difficile History of Clostridium diffi cile : Patient Instructions Indication:History of Clostridium difficile C. difficile diarrhea : Kelly ent Instructions Indication:C. difficile diarrhea C. difficile diarrhea : How to access health information online Indication:C. difficile diarrhea C. difficile diarrhea : How to access health information online - Detail Indication:C. difficile diarrhea Name Dates Details How to access health informa tion online Indication:Nonsmoker Start:24-Sep-2018 Instruction Type:Patient Education How to access health informa tion online - Detail Indication:Nonsmoker Start:24-Sep-2018 Instruction Type:Patient Education Patient Instructions Indication:Nonsmoker Start:24-Sep-2018 Instruction Type:Provider Instructions for Treatment How to access health informa tion online Indication:Nonsmoker Start:09-Jul-2018 Instruction Type:Patient Education How to access health informa tion online - Detail Indication:Nonsmoker Start:09-Jul-2018 Instruction Type:Patient Education Patient Instructions Indication:Nonsmoker Start:09-Jul-2018 Instruction Type:Provider Instructions for Treatment How to access health informa tion online Indication:Nonsmoker Start:16-Dec-2017 Instruction Type:Patient Education How to access health informa tion online - Detail Indication:Nonsmoker Start:16-Dec-2017 Instruction Type:Patient Education Patient Instructions Indication:Nonsmoker Start:16-Dec-2017 Instruction Type:Provider Instructions for Treatment How to access health informa tion online Indication:Nonsmoker Start:13-Dec-2017 Instruction Type:Patient Education How to access health informa tion online - Detail Indication:Nonsmoker Start:13-Dec-2017 Instruction Type:Patient Education Patient Instructions Indication:Nonsmoker Start:13-Dec-2017 Instruction Type:Provider Instructions for Treatment How to access health informa tion online Indication:Nonsmoker Start:18-Nov-2017 Instruction Type:Patient Education How to access health informa tion online - Detail Indication:Nonsmoker Start:18-Nov-2017 Instruction Type:Patient Education Patient Instructions Indication:Nonsmoker Start:18-Nov-2017 Instruction Type:Provider Instructions for Treatment How to access health informa tion online Indication:BMI 26.0-26.9,adult Start:22-May-2017 Instruction Type:Patient Education How to access health informa tion online - Detail Indication:BMI 26.0-26.9,adult Start:22-May-2017 Instruction Type:Patient Education Patient Instructions Indication:BMI 26.0-26.9,adult Start:22-May-2017 Instruction Type:Provider Instructions for Treatment How to access health informa tion online Indication:Nonsmoker Start:13-Mar-2017 Instruction Type:Patient Education How to access health informa tion online - Detail Indication:Nonsmoker Start:13-Mar-2017 Instruction Type:Patient Education Patient Instructions Indication:Nonsmoker Start:13-Mar-2017 Instruction Type:Provider Instructions for Treatment How to access health informa tion online Indication:Body mass index 25.0-25.9, adult Start:01-Mar-2017 Instruction Type:Patient Education How to access health informa tion online - Detail Indication:Body mass index 25.0-25.9, adult Start:01-Mar-2017 Instruction Type:Patient Education Patient Instructions Indication:Body mass index 25.0-25.9, adult Start:01-Mar-2017 Instruction Type:Provider Instructions for Treatment How to access health informa tion online Indication:Right knee pain Start:27-Feb-2017 Instruction Type:Patient Education How to access health informa tion online - Detail Indication:Right knee pain Start:27-Feb-2017 Instruction Type:Patient Education Patient Instructions Indication:Right knee pain Start:27-Feb-2017 Instruction Type:Provider Instructions for Treatment How to access health informa tion online Indication:Nonsmoker Start:27-Apr-2016 Instruction Type:Patient Education How to access health informa tion online - Detail Indication:Nonsmoker Start:27-Apr-2016 Instruction Type:Patient Education Patient Instructions Indication:Nonsmoker Start:27-Apr-2016 Instruction Type:Provider Instructions for Treatment How to access health informa tion online Indication:History of Clostridium difficile Start:04-Apr-2015 Instruction Type:Patient Education How to access health informa tion online - Detail Indication:History of Clostridium difficile Start:04-Apr-2015 Instruction Type:Patient Education Patient Instructions Indication:History of Clostridium difficile Start:04-Apr-2015 Instruction Type:Provider Instructions for Treatment Patient Instructions Indication:C. difficile diarrhea Start:14-Mar-2015 Instruction Type:Provider Instructions for Treatment How to access health informa tion online Indication:C. difficile diarrhea Start:14-Mar-2015 Instruction Type:Patient Education How to access health informa tion online - Detail Indication:C. difficile diarrhea Start:14-Mar-2015 Instruction Type:Patient Education Name Dates Details How to access health informa tion online Indication:Nonsmoker Start:20-Nov-2018 Instruction Type:Patient Education How to access health informa tion online - Detail Indication:Nonsmoker Start:20-Nov-2018 Instruction Type:Patient Education Patient Instructions Indication:Nonsmoker Start:20-Nov-2018 Instruction Type:Provider Instructions for Treatment How to access health informa tion online Indication:Nonsmoker Start:24-Sep-2018 Instruction Type:Patient Education How to access health informa tion online - Detail Indication:Nonsmoker Start:24-Sep-2018 Instruction Type:Patient Education Patient Instructions Indication:Nonsmoker Start:24-Sep-2018 Instruction Type:Provider Instructions for Treatment How to access health informa tion online Indication:Nonsmoker Start:09-Jul-2018 Instruction Type:Patient Education How to access health informa tion online - Detail Indication:Nonsmoker Start:09-Jul-2018 Instruction Type:Patient Education Patient Instructions Indication:Nonsmoker Start:09-Jul-2018 Instruction Type:Provider Instructions for Treatment How to access health informa tion online Indication:Nonsmoker Start:16-Dec-2017 Instruction Type:Patient Education How to access health informa tion online - Detail Indication:Nonsmoker Start:16-Dec-2017 Instruction Type:Patient Education Patient Instructions Indication:Nonsmoker Start:16-Dec-2017 Instruction Type:Provider Instructions for Treatment How to access health informa tion online Indication:Nonsmoker Start:13-Dec-2017 Instruction Type:Patient Education How to access health informa tion online - Detail Indication:Nonsmoker Start:13-Dec-2017 Instruction Type:Patient Education Patient Instructions Indication:Nonsmoker Start:13-Dec-2017 Instruction Type:Provider Instructions for Treatment How to access health informa tion online Indication:Nonsmoker Start:18-Nov-2017 Instruction Type:Patient Education How to access health informa tion online - Detail Indication:Nonsmoker Start:18-Nov-2017 Instruction Type:Patient Education Patient Instructions Indication:Nonsmoker Start:18-Nov-2017 Instruction Type:Provider Instructions for Treatment How to access health informa tion online Indication:BMI 26.0-26.9,adult Start:22-May-2017 Instruction Type:Patient Education How to access health informa tion online - Detail Indication:BMI 26.0-26.9,adult Start:22-May-2017 Instruction Type:Patient Education Patient Instructions Indication:BMI 26.0-26.9,adult Start:22-May-2017 Instruction Type:Provider Instructions for Treatment How to access health informa tion online Indication:Nonsmoker Start:13-Mar-2017 Instruction Type:Patient Education How to access health informa tion online - Detail Indication:Nonsmoker Start:13-Mar-2017 Instruction Type:Patient Education Patient Instructions Indication:Nonsmoker Start:13-Mar-2017 Instruction Type:Provider Instructions for Treatment How to access health informa tion online Indication:Body mass index 25.0-25.9, adult Start:01-Mar-2017 Instruction Type:Patient Education How to access health informa tion online - Detail Indication:Body mass index 25.0-25.9, adult Start:01-Mar-2017 Instruction Type:Patient Education Patient Instructions Indication:Body mass index 25.0-25.9, adult Start:01-Mar-2017 Instruction Type:Provider Instructions for Treatment How to access health informa tion online Indication:Right knee pain Start:27-Feb-2017 Instruction Type:Patient Education How to access health informa tion online - Detail Indication:Right knee pain Start:27-Feb-2017 Instruction Type:Patient Education Patient Instructions Indication:Right knee pain Start:27-Feb-2017 Instruction Type:Provider Instructions for Treatment How to access health informa tion online Indication:Nonsmoker Start:27-Apr-2016 Instruction Type:Patient Education How to access health informa tion online - Detail Indication:Nonsmoker Start:27-Apr-2016 Instruction Type:Patient Education Patient Instructions Indication:Nonsmoker Start:27-Apr-2016 Instruction Type:Provider Instructions for Treatment How to access health informa tion online Indication:History of Clostridium difficile Start:04-Apr-2015 Instruction Type:Patient Education How to access health informa tion online - Detail Indication:History of Clostridium difficile Start:04-Apr-2015 Instruction Type:Patient Education Patient Instructions Indication:History of Clostridium difficile Start:04-Apr-2015 Instruction Type:Provider Instructions for Treatment Patient Instructions Indication:C. difficile diarrhea Start:14-Mar-2015 Instruction Type:Provider Instructions for Treatment How to access health informa tion online Indication:C. difficile diarrhea Start:14-Mar-2015 Instruction Type:Patient Education How to access health informa tion online - Detail Indication:C. difficile diarrhea Start:14-Mar-2015 Instruction Type:Patient Education Name Dates Details How to access health informa tion online Indication:Nonsmoker Start:20-Nov-2018 Instruction Type:Patient Education How to access health informa tion online - Detail Indication:Nonsmoker Start:20-Nov-2018 Instruction Type:Patient Education Patient Instructions Indication:Nonsmoker Start:20-Nov-2018 Instruction Type:Provider Instructions for Treatment How to access health informa tion online Indication:Nonsmoker Start:24-Sep-2018 Instruction Type:Patient Education How to access health informa tion online - Detail Indication:Nonsmoker Start:24-Sep-2018 Instruction Type:Patient Education Patient Instructions Indication:Nonsmoker Start:24-Sep-2018 Instruction Type:Provider Instructions for Treatment How to access health informa tion online Indication:Nonsmoker Start:09-Jul-2018 Instruction Type:Patient Education How to access health informa tion online - Detail Indication:Nonsmoker Start:09-Jul-2018 Instruction Type:Patient Education Patient Instructions Indication:Nonsmoker Start:09-Jul-2018 Instruction Type:Provider Instructions for Treatment How to access health informa tion online Indication:Nonsmoker Start:16-Dec-2017 Instruction Type:Patient Education How to access health informa tion online - Detail Indication:Nonsmoker Start:16-Dec-2017 Instruction Type:Patient Education Patient Instructions Indication:Nonsmoker Start:16-Dec-2017 Instruction Type:Provider Instructions for Treatment How to access health informa tion online Indication:Nonsmoker Start:13-Dec-2017 Instruction Type:Patient Education How to access health informa tion online - Detail Indication:Nonsmoker Start:13-Dec-2017 Instruction Type:Patient Education Patient Instructions Indication:Nonsmoker Start:13-Dec-2017 Instruction Type:Provider Instructions for Treatment How to access health informa tion online Indication:Nonsmoker Start:18-Nov-2017 Instruction Type:Patient Education How to access health informa tion online - Detail Indication:Nonsmoker Start:18-Nov-2017 Instruction Type:Patient Education Patient Instructions Indication:Nonsmoker Start:18-Nov-2017 Instruction Type:Provider Instructions for Treatment How to access health informa tion online Indication:BMI 26.0-26.9,adult Start:22-May-2017 Instruction Type:Patient Education How to access health informa tion online - Detail Indication:BMI 26.0-26.9,adult Start:22-May-2017 Instruction Type:Patient Education Patient Instructions Indication:BMI 26.0-26.9,adult Start:22-May-2017 Instruction Type:Provider Instructions for Treatment How to access health informa tion online Indication:Nonsmoker Start:13-Mar-2017 Instruction Type:Patient Education How to access health informa tion online - Detail Indication:Nonsmoker Start:13-Mar-2017 Instruction Type:Patient Education Patient Instructions Indication:Nonsmoker Start:13-Mar-2017 Instruction Type:Provider Instructions for Treatment How to access health informa tion online Indication:Body mass index 25.0-25.9, adult Start:01-Mar-2017 Instruction Type:Patient Education How to access health informa tion online - Detail Indication:Body mass index 25.0-25.9, adult Start:01-Mar-2017 Instruction Type:Patient Education Patient Instructions Indication:Body mass index 25.0-25.9, adult Start:01-Mar-2017 Instruction Type:Provider Instructions for Treatment How to access health informa tion online Indication:Right knee pain Start:27-Feb-2017 Instruction Type:Patient Education How to access health informa tion online - Detail Indication:Right knee pain Start:27-Feb-2017 Instruction Type:Patient Education Patient Instructions Indication:Right knee pain Start:27-Feb-2017 Instruction Type:Provider Instructions for Treatment How to access health informa tion online Indication:Nonsmoker Start:27-Apr-2016 Instruction Type:Patient Education How to access health informa tion online - Detail Indication:Nonsmoker Start:27-Apr-2016 Instruction Type:Patient Education Patient Instructions Indication:Nonsmoker Start:27-Apr-2016 Instruction Type:Provider Instructions for Treatment How to access health informa tion online Indication:History of Clostridium difficile Start:04-Apr-2015 Instruction Type:Patient Education How to access health informa tion online - Detail Indication:History of Clostridium difficile Start:04-Apr-2015 Instruction Type:Patient Education Patient Instructions Indication:History of Clostridium difficile Start:04-Apr-2015 Instruction Type:Provider Instructions for Treatment Patient Instructions Indication:C. difficile diarrhea Start:14-Mar-2015 Instruction Type:Provider Instructions for Treatment How to access health informa tion online Indication:C. difficile diarrhea Start:14-Mar-2015 Instruction Type:Patient Education How to access health informa tion online - Detail Indication:C. difficile diarrhea Start:14-Mar-2015 Instruction Type:Patient Education Name Dates Details How to Access Health Informa tion Online using Patient Portal and [employer] Apps Indication:Nonsmoker Start:09-Mar-2020 Instruction Type:Patient Education Patient Instructions Indication:Nonsmoker Start:09-Mar-2020 Instruction Type:Provider Instructions for Treatment How to access health informa tion online Indication:Nonsmoker Start:18-Feb-2020 Instruction Type:Patient Education How to access health informa tion online - Detail Indication:Nonsmoker Start:18-Feb-2020 Instruction Type:Patient Education Patient Instructions Indication:Nonsmoker Start:18-Feb-2020 Instruction Type:Provider Instructions for Treatment How to access health informa tion online Indication:Nonsmoker Start:06-Mar-2019 Instruction Type:Patient Education How to access health informa tion online - Detail Indication:Nonsmoker Start:06-Mar-2019 Instruction Type:Patient Education Patient Instructions Indication:Nonsmoker Start:06-Mar-2019 Instruction Type:Provider Instructions for Treatment How to access health informa tion online Indication:Nonsmoker Start:20-Nov-2018 Instruction Type:Patient Education How to access health informa tion online - Detail Indication:Nonsmoker Start:20-Nov-2018 Instruction Type:Patient Education Patient Instructions Indication:Nonsmoker Start:20-Nov-2018 Instruction Type:Provider Instructions for Treatment How to access health informa tion online Indication:Nonsmoker Start:24-Sep-2018 Instruction Type:Patient Education How to access health informa tion online - Detail Indication:Nonsmoker Start:24-Sep-2018 Instruction Type:Patient Education Patient Instructions Indication:Nonsmoker Start:24-Sep-2018 Instruction Type:Provider Instructions for Treatment How to access health informa tion online Indication:Nonsmoker Start:09-Jul-2018 Instruction Type:Patient Education How to access health informa tion online - Detail Indication:Nonsmoker Start:09-Jul-2018 Instruction Type:Patient Education Patient Instructions Indication:Nonsmoker Start:09-Jul-2018 Instruction Type:Provider Instructions for Treatment How to access health informa tion online Indication:Nonsmoker Start:16-Dec-2017 Instruction Type:Patient Education How to access health informa tion online - Detail Indication:Nonsmoker Start:16-Dec-2017 Instruction Type:Patient Education Patient Instructions Indication:Nonsmoker Start:16-Dec-2017 Instruction Type:Provider Instructions for Treatment How to access health informa tion online Indication:Nonsmoker Start:13-Dec-2017 Instruction Type:Patient Education How to access health informa tion online - Detail Indication:Nonsmoker Start:13-Dec-2017 Instruction Type:Patient Education Patient Instructions Indication:Nonsmoker Start:13-Dec-2017 Instruction Type:Provider Instructions for Treatment How to access health informa tion online Indication:Nonsmoker Start:18-Nov-2017 Instruction Type:Patient Education How to access health informa tion online - Detail Indication:Nonsmoker Start:18-Nov-2017 Instruction Type:Patient Education Patient Instructions Indication:Nonsmoker Start:18-Nov-2017 Instruction Type:Provider Instructions for Treatment How to access health informa tion online Indication:BMI 26.0-26.9,adult Start:22-May-2017 Instruction Type:Patient Education How to access health informa tion online - Detail Indication:BMI 26.0-26.9,adult Start:22-May-2017 Instruction Type:Patient Education Patient Instructions Indication:BMI 26.0-26.9,adult Start:22-May-2017 Instruction Type:Provider Instructions for Treatment How to access health informa tion online Indication:Nonsmoker Start:13-Mar-2017 Instruction Type:Patient Education How to access health informa tion online - Detail Indication:Nonsmoker Start:13-Mar-2017 Instruction Type:Patient Education Patient Instructions Indication:Nonsmoker Start:13-Mar-2017 Instruction Type:Provider Instructions for Treatment How to access health informa tion online Indication:Body mass index 25.0-25.9, adult Start:01-Mar-2017 Instruction Type:Patient Education How to access health informa tion online - Detail Indication:Body mass index 25.0-25.9, adult Start:01-Mar-2017 Instruction Type:Patient Education Patient Instructions Indication:Body mass index 25.0-25.9, adult Start:01-Mar-2017 Instruction Type:Provider Instructions for Treatment How to access health informa tion online Indication:Right knee pain Start:27-Feb-2017 Instruction Type:Patient Education How to access health informa tion online - Detail Indication:Right knee pain Start:27-Feb-2017 Instruction Type:Patient Education Patient Instructions Indication:Right knee pain Start:27-Feb-2017 Instruction Type:Provider Instructions for Treatment How to access health informa tion online Indication:Nonsmoker Start:27-Apr-2016 Instruction Type:Patient Education How to access health informa tion online - Detail Indication:Nonsmoker Start:27-Apr-2016 Instruction Type:Patient Education Patient Instructions Indication:Nonsmoker Start:27-Apr-2016 Instruction Type:Provider Instructions for Treatment How to access health informa tion online Indication:History of Clostridium difficile Start:04-Apr-2015 Instruction Type:Patient Education How to access health informa tion online - Detail Indication:History of Clostridium difficile Start:04-Apr-2015 Instruction Type:Patient Education Patient Instructions Indication:History of Clostridium difficile Start:04-Apr-2015 Instruction Type:Provider Instructions for Treatment Patient Instructions Indication:C. difficile diarrhea Start:14-Mar-2015 Instruction Type:Provider Instructions for Treatment How to access health informa tion online Indication:C. difficile diarrhea Start:14-Mar-2015 Instruction Type:Patient Education How to access health informa tion online - Detail Indication:C. difficile diarrhea Start:14-Mar-2015 Instruction Type:Patient Education Name Dates Details How to Access Health Informa tion Online using Patient Portal and [employer] Apps Indication:Nonsmoker Start:09-Mar-2020 Instruction Type:Patient Education Patient Instructions Indication:Nonsmoker Start:09-Mar-2020 Instruction Type:Provider Instructions for Treatment How to access health informa tion online Indication:Nonsmoker Start:18-Feb-2020 Instruction Type:Patient Education How to access health informa tion online - Detail Indication:Nonsmoker Start:18-Feb-2020 Instruction Type:Patient Education Patient Instructions Indication:Nonsmoker Start:18-Feb-2020 Instruction Type:Provider Instructions for Treatment How to access health informa tion online Indication:Nonsmoker Start:06-Mar-2019 Instruction Type:Patient Education How to access health informa tion online - Detail Indication:Nonsmoker Start:06-Mar-2019 Instruction Type:Patient Education Patient Instructions Indication:Nonsmoker Start:06-Mar-2019 Instruction Type:Provider Instructions for Treatment How to access health informa tion online Indication:Nonsmoker Start:20-Nov-2018 Instruction Type:Patient Education How to access health informa tion online - Detail Indication:Nonsmoker Start:20-Nov-2018 Instruction Type:Patient Education Patient Instructions Indication:Nonsmoker Start:20-Nov-2018 Instruction Type:Provider Instructions for Treatment How to access health informa tion online Indication:Nonsmoker Start:24-Sep-2018 Instruction Type:Patient Education How to access health informa tion online - Detail Indication:Nonsmoker Start:24-Sep-2018 Instruction Type:Patient Education Patient Instructions Indication:Nonsmoker Start:24-Sep-2018 Instruction Type:Provider Instructions for Treatment How to access health informa tion online Indication:Nonsmoker Start:09-Jul-2018 Instruction Type:Patient Education How to access health informa tion online - Detail Indication:Nonsmoker Start:09-Jul-2018 Instruction Type:Patient Education Patient Instructions Indication:Nonsmoker Start:09-Jul-2018 Instruction Type:Provider Instructions for Treatment How to access health informa tion online Indication:Nonsmoker Start:16-Dec-2017 Instruction Type:Patient Education How to access health informa tion online - Detail Indication:Nonsmoker Start:16-Dec-2017 Instruction Type:Patient Education Patient Instructions Indication:Nonsmoker Start:16-Dec-2017 Instruction Type:Provider Instructions for Treatment How to access health informa tion online Indication:Nonsmoker Start:13-Dec-2017 Instruction Type:Patient Education How to access health informa tion online - Detail Indication:Nonsmoker Start:13-Dec-2017 Instruction Type:Patient Education Patient Instructions Indication:Nonsmoker Start:13-Dec-2017 Instruction Type:Provider Instructions for Treatment How to access health informa tion online Indication:Nonsmoker Start:18-Nov-2017 Instruction Type:Patient Education How to access health informa tion online - Detail Indication:Nonsmoker Start:18-Nov-2017 Instruction Type:Patient Education Patient Instructions Indication:Nonsmoker Start:18-Nov-2017 Instruction Type:Provider Instructions for Treatment How to access health informa tion online Indication:BMI 26.0-26.9,adult Start:22-May-2017 Instruction Type:Patient Education How to access health informa tion online - Detail Indication:BMI 26.0-26.9,adult Start:22-May-2017 Instruction Type:Patient Education Patient Instructions Indication:BMI 26.0-26.9,adult Start:22-May-2017 Instruction Type:Provider Instructions for Treatment How to access health informa tion online Indication:Nonsmoker Start:13-Mar-2017 Instruction Type:Patient Education How to access health informa tion online - Detail Indication:Nonsmoker Start:13-Mar-2017 Instruction Type:Patient Education Patient Instructions Indication:Nonsmoker Start:13-Mar-2017 Instruction Type:Provider Instructions for Treatment How to access health informa tion online Indication:Body mass index 25.0-25.9, adult Start:01-Mar-2017 Instruction Type:Patient Education How to access health informa tion online - Detail Indication:Body mass index 25.0-25.9, adult Start:01-Mar-2017 Instruction Type:Patient Education Patient Instructions Indication:Body mass index 25.0-25.9, adult Start:01-Mar-2017 Instruction Type:Provider Instructions for Treatment How to access health informa tion online Indication:Right knee pain Start:27-Feb-2017 Instruction Type:Patient Education How to access health informa tion online - Detail Indication:Right knee pain Start:27-Feb-2017 Instruction Type:Patient Education Patient Instructions Indication:Right knee pain Start:27-Feb-2017 Instruction Type:Provider Instructions for Treatment How to access health informa tion online Indication:Nonsmoker Start:27-Apr-2016 Instruction Type:Patient Education How to access health informa tion online - Detail Indication:Nonsmoker Start:27-Apr-2016 Instruction Type:Patient Education Patient Instructions Indication:Nonsmoker Start:27-Apr-2016 Instruction Type:Provider Instructions for Treatment How to access health informa tion online Indication:History of Clostridium difficile Start:04-Apr-2015 Instruction Type:Patient Education How to access health informa tion online - Detail Indication:History of Clostridium difficile Start:04-Apr-2015 Instruction Type:Patient Education Patient Instructions Indication:History of Clostridium difficile Start:04-Apr-2015 Instruction Type:Provider Instructions for Treatment Patient Instructions Indication:C. difficile diarrhea Start:14-Mar-2015 Instruction Type:Provider Instructions for Treatment How to access health informa tion online Indication:C. difficile diarrhea Start:14-Mar-2015 Instruction Type:Patient Education How to access health informa tion online - Detail Indication:C. difficile diarrhea Start:14-Mar-2015 Instruction Type:Patient Education Name Dates Details Nonsmoker : How to access he [employer] information online Indication:Nonsmoker Nonsmoker : How to access he alth information online - Detail Indication:Nonsmoker Nonsmoker : Patient Instruct ions Indication:Nonsmoker BMI 26.0-26.9,adult : How to access health information online Indication:BMI 26.0-26.9,adult BMI 26.0-26.9,adult : How to access health information online - Detail Indication:BMI 26.0-26.9,adult BMI 26.0-26.9,adult : Patien t Instructions Indication:BMI 26.0-26.9,adult Body mass index 25.0-25.9, a dult : How to access health information online Indication:Body mass index 25.0-25.9, adult Body mass index 25.0-25.9, a dult : How to access health information online - Detail Indication:Body mass index 25.0-25.9, adult Body mass index 25.0-25.9, a dult : Patient Instructions Indication:Body mass index 25.0-25.9, adult Right knee pain : How to acc ess health information online Indication:Right knee pain Right knee pain : How to acc ess health information online - Detail Indication:Right knee pain Right knee pain : Patient In structions Indication:Right knee pain History of Clostridium diffi cile : How to access health information online Indication:History of Clostridium difficile History of Clostridium diffi cile : How to access health information online - Detail Indication:History of Clostridium difficile History of Clostridium diffi cile : Patient Instructions Indication:History of Clostridium difficile C. difficile diarrhea : Kelly ent Instructions Indication:C. difficile diarrhea C. difficile diarrhea : How to access health information online Indication:C. difficile diarrhea C. difficile diarrhea : How to access health information online - Detail Indication:C. difficile diarrhea Name Dates Details How to access health informa tion online Indication:Nonsmoker Start:18-Feb-2020 Instruction Type:Patient Education How to access health informa tion online - Detail Indication:Nonsmoker Start:18-Feb-2020 Instruction Type:Patient Education Patient Instructions Indication:Nonsmoker Start:18-Feb-2020 Instruction Type:Provider Instructions for Treatment How to access health informa tion online Indication:Nonsmoker Start:06-Mar-2019 Instruction Type:Patient Education How to access health informa tion online - Detail Indication:Nonsmoker Start:06-Mar-2019 Instruction Type:Patient Education Patient Instructions Indication:Nonsmoker Start:06-Mar-2019 Instruction Type:Provider Instructions for Treatment How to access health informa tion online Indication:Nonsmoker Start:20-Nov-2018 Instruction Type:Patient Education How to access health informa tion online - Detail Indication:Nonsmoker Start:20-Nov-2018 Instruction Type:Patient Education Patient Instructions Indication:Nonsmoker Start:20-Nov-2018 Instruction Type:Provider Instructions for Treatment How to access health informa tion online Indication:Nonsmoker Start:24-Sep-2018 Instruction Type:Patient Education How to access health informa tion online - Detail Indication:Nonsmoker Start:24-Sep-2018 Instruction Type:Patient Education Patient Instructions Indication:Nonsmoker Start:24-Sep-2018 Instruction Type:Provider Instructions for Treatment How to access health informa tion online Indication:Nonsmoker Start:09-Jul-2018 Instruction Type:Patient Education How to access health informa tion online - Detail Indication:Nonsmoker Start:09-Jul-2018 Instruction Type:Patient Education Patient Instructions Indication:Nonsmoker Start:09-Jul-2018 Instruction Type:Provider Instructions for Treatment How to access health informa tion online Indication:Nonsmoker Start:16-Dec-2017 Instruction Type:Patient Education How to access health informa tion online - Detail Indication:Nonsmoker Start:16-Dec-2017 Instruction Type:Patient Education Patient Instructions Indication:Nonsmoker Start:16-Dec-2017 Instruction Type:Provider Instructions for Treatment How to access health informa tion online Indication:Nonsmoker Start:13-Dec-2017 Instruction Type:Patient Education How to access health informa tion online - Detail Indication:Nonsmoker Start:13-Dec-2017 Instruction Type:Patient Education Patient Instructions Indication:Nonsmoker Start:13-Dec-2017 Instruction Type:Provider Instructions for Treatment How to access health informa tion online Indication:Nonsmoker Start:18-Nov-2017 Instruction Type:Patient Education How to access health informa tion online - Detail Indication:Nonsmoker Start:18-Nov-2017 Instruction Type:Patient Education Patient Instructions Indication:Nonsmoker Start:18-Nov-2017 Instruction Type:Provider Instructions for Treatment How to access health informa tion online Indication:BMI 26.0-26.9,adult Start:22-May-2017 Instruction Type:Patient Education How to access health informa tion online - Detail Indication:BMI 26.0-26.9,adult Start:22-May-2017 Instruction Type:Patient Education Patient Instructions Indication:BMI 26.0-26.9,adult Start:22-May-2017 Instruction Type:Provider Instructions for Treatment How to access health informa tion online Indication:Nonsmoker Start:13-Mar-2017 Instruction Type:Patient Education How to access health informa tion online - Detail Indication:Nonsmoker Start:13-Mar-2017 Instruction Type:Patient Education Patient Instructions Indication:Nonsmoker Start:13-Mar-2017 Instruction Type:Provider Instructions for Treatment How to access health informa tion online Indication:Body mass index 25.0-25.9, adult Start:01-Mar-2017 Instruction Type:Patient Education How to access health informa tion online - Detail Indication:Body mass index 25.0-25.9, adult Start:01-Mar-2017 Instruction Type:Patient Education Patient Instructions Indication:Body mass index 25.0-25.9, adult Start:01-Mar-2017 Instruction Type:Provider Instructions for Treatment How to access health informa tion online Indication:Right knee pain Start:27-Feb-2017 Instruction Type:Patient Education How to access health informa tion online - Detail Indication:Right knee pain Start:27-Feb-2017 Instruction Type:Patient Education Patient Instructions Indication:Right knee pain Start:27-Feb-2017 Instruction Type:Provider Instructions for Treatment How to access health informa tion online Indication:Nonsmoker Start:27-Apr-2016 Instruction Type:Patient Education How to access health informa tion online - Detail Indication:Nonsmoker Start:27-Apr-2016 Instruction Type:Patient Education Patient Instructions Indication:Nonsmoker Start:27-Apr-2016 Instruction Type:Provider Instructions for Treatment How to access health informa tion online Indication:History of Clostridium difficile Start:04-Apr-2015 Instruction Type:Patient Education How to access health informa tion online - Detail Indication:History of Clostridium difficile Start:04-Apr-2015 Instruction Type:Patient Education Patient Instructions Indication:History of Clostridium difficile Start:04-Apr-2015 Instruction Type:Provider Instructions for Treatment Patient Instructions Indication:C. difficile diarrhea Start:14-Mar-2015 Instruction Type:Provider Instructions for Treatment How to access health informa tion online Indication:C. difficile diarrhea Start:14-Mar-2015 Instruction Type:Patient Education How to access health informa tion online - Detail Indication:C. difficile diarrhea Start:14-Mar-2015 Instruction Type:Patient Education Name Dates Details How to access health informa tion online Indication:Nonsmoker Start:18-Feb-2020 Instruction Type:Patient Education How to access health informa tion online - Detail Indication:Nonsmoker Start:18-Feb-2020 Instruction Type:Patient Education Patient Instructions Indication:Nonsmoker Start:18-Feb-2020 Instruction Type:Provider Instructions for Treatment How to access health informa tion online Indication:Nonsmoker Start:06-Mar-2019 Instruction Type:Patient Education How to access health informa tion online - Detail Indication:Nonsmoker Start:06-Mar-2019 Instruction Type:Patient Education Patient Instructions Indication:Nonsmoker Start:06-Mar-2019 Instruction Type:Provider Instructions for Treatment How to access health informa tion online Indication:Nonsmoker Start:20-Nov-2018 Instruction Type:Patient Education How to access health informa tion online - Detail Indication:Nonsmoker Start:20-Nov-2018 Instruction Type:Patient Education Patient Instructions Indication:Nonsmoker Start:20-Nov-2018 Instruction Type:Provider Instructions for Treatment How to access health informa tion online Indication:Nonsmoker Start:24-Sep-2018 Instruction Type:Patient Education How to access health informa tion online - Detail Indication:Nonsmoker Start:24-Sep-2018 Instruction Type:Patient Education Patient Instructions Indication:Nonsmoker Start:24-Sep-2018 Instruction Type:Provider Instructions for Treatment How to access health informa tion online Indication:Nonsmoker Start:09-Jul-2018 Instruction Type:Patient Education How to access health informa tion online - Detail Indication:Nonsmoker Start:09-Jul-2018 Instruction Type:Patient Education Patient Instructions Indication:Nonsmoker Start:09-Jul-2018 Instruction Type:Provider Instructions for Treatment How to access health informa tion online Indication:Nonsmoker Start:16-Dec-2017 Instruction Type:Patient Education How to access health informa tion online - Detail Indication:Nonsmoker Start:16-Dec-2017 Instruction Type:Patient Education Patient Instructions Indication:Nonsmoker Start:16-Dec-2017 Instruction Type:Provider Instructions for Treatment How to access health informa tion online Indication:Nonsmoker Start:13-Dec-2017 Instruction Type:Patient Education How to access health informa tion online - Detail Indication:Nonsmoker Start:13-Dec-2017 Instruction Type:Patient Education Patient Instructions Indication:Nonsmoker Start:13-Dec-2017 Instruction Type:Provider Instructions for Treatment How to access health informa tion online Indication:Nonsmoker Start:18-Nov-2017 Instruction Type:Patient Education How to access health informa tion online - Detail Indication:Nonsmoker Start:18-Nov-2017 Instruction Type:Patient Education Patient Instructions Indication:Nonsmoker Start:18-Nov-2017 Instruction Type:Provider Instructions for Treatment How to access health informa tion online Indication:BMI 26.0-26.9,adult Start:22-May-2017 Instruction Type:Patient Education How to access health informa tion online - Detail Indication:BMI 26.0-26.9,adult Start:22-May-2017 Instruction Type:Patient Education Patient Instructions Indication:BMI 26.0-26.9,adult Start:22-May-2017 Instruction Type:Provider Instructions for Treatment How to access health informa tion online Indication:Nonsmoker Start:13-Mar-2017 Instruction Type:Patient Education How to access health informa tion online - Detail Indication:Nonsmoker Start:13-Mar-2017 Instruction Type:Patient Education Patient Instructions Indication:Nonsmoker Start:13-Mar-2017 Instruction Type:Provider Instructions for Treatment How to access health informa tion online Indication:Body mass index 25.0-25.9, adult Start:01-Mar-2017 Instruction Type:Patient Education How to access health informa tion online - Detail Indication:Body mass index 25.0-25.9, adult Start:01-Mar-2017 Instruction Type:Patient Education Patient Instructions Indication:Body mass index 25.0-25.9, adult Start:01-Mar-2017 Instruction Type:Provider Instructions for Treatment How to access health informa tion online Indication:Right knee pain Start:27-Feb-2017 Instruction Type:Patient Education How to access health informa tion online - Detail Indication:Right knee pain Start:27-Feb-2017 Instruction Type:Patient Education Patient Instructions Indication:Right knee pain Start:27-Feb-2017 Instruction Type:Provider Instructions for Treatment How to access health informa tion online Indication:Nonsmoker Start:27-Apr-2016 Instruction Type:Patient Education How to access health informa tion online - Detail Indication:Nonsmoker Start:27-Apr-2016 Instruction Type:Patient Education Patient Instructions Indication:Nonsmoker Start:27-Apr-2016 Instruction Type:Provider Instructions for Treatment How to access health informa tion online Indication:History of Clostridium difficile Start:04-Apr-2015 Instruction Type:Patient Education How to access health informa tion online - Detail Indication:History of Clostridium difficile Start:04-Apr-2015 Instruction Type:Patient Education Patient Instructions Indication:History of Clostridium difficile Start:04-Apr-2015 Instruction Type:Provider Instructions for Treatment Patient Instructions Indication:C. difficile diarrhea Start:14-Mar-2015 Instruction Type:Provider Instructions for Treatment How to access health informa tion online Indication:C. difficile diarrhea Start:14-Mar-2015 Instruction Type:Patient Education How to access health informa tion online - Detail Indication:C. difficile diarrhea Start:14-Mar-2015 Instruction Type:Patient Education Name Dates Details How to Access Health Informa tion Online using Patient Portal and [employer] Indication:Nonsmoker Start:09-Mar-2020 Instruction Type:Patient Education Patient Instructions Indication:Nonsmoker Start:09-Mar-2020 Instruction Type:Provider Instructions for Treatment How to access health informa tion online Indication:Nonsmoker Start:18-Feb-2020 Instruction Type:Patient Education How to access health informa tion online - Detail Indication:Nonsmoker Start:18-Feb-2020 Instruction Type:Patient Education Patient Instructions Indication:Nonsmoker Start:18-Feb-2020 Instruction Type:Provider Instructions for Treatment How to access health informa tion online Indication:Nonsmoker Start:06-Mar-2019 Instruction Type:Patient Education How to access health informa tion online - Detail Indication:Nonsmoker Start:06-Mar-2019 Instruction Type:Patient Education Patient Instructions Indication:Nonsmoker Start:06-Mar-2019 Instruction Type:Provider Instructions for Treatment How to access health informa tion online Indication:Nonsmoker Start:20-Nov-2018 Instruction Type:Patient Education How to access health informa tion online - Detail Indication:Nonsmoker Start:20-Nov-2018 Instruction Type:Patient Education Patient Instructions Indication:Nonsmoker Start:20-Nov-2018 Instruction Type:Provider Instructions for Treatment How to access health informa tion online Indication:Nonsmoker Start:24-Sep-2018 Instruction Type:Patient Education How to access health informa tion online - Detail Indication:Nonsmoker Start:24-Sep-2018 Instruction Type:Patient Education Patient Instructions Indication:Nonsmoker Start:24-Sep-2018 Instruction Type:Provider Instructions for Treatment How to access health informa tion online Indication:Nonsmoker Start:09-Jul-2018 Instruction Type:Patient Education How to access health informa tion online - Detail Indication:Nonsmoker Start:09-Jul-2018 Instruction Type:Patient Education Patient Instructions Indication:Nonsmoker Start:09-Jul-2018 Instruction Type:Provider Instructions for Treatment How to access health informa tion online Indication:Nonsmoker Start:16-Dec-2017 Instruction Type:Patient Education How to access health informa tion online - Detail Indication:Nonsmoker Start:16-Dec-2017 Instruction Type:Patient Education Patient Instructions Indication:Nonsmoker Start:16-Dec-2017 Instruction Type:Provider Instructions for Treatment How to access health informa tion online Indication:Nonsmoker Start:13-Dec-2017 Instruction Type:Patient Education How to access health informa tion online - Detail Indication:Nonsmoker Start:13-Dec-2017 Instruction Type:Patient Education Patient Instructions Indication:Nonsmoker Start:13-Dec-2017 Instruction Type:Provider Instructions for Treatment How to access health informa tion online Indication:Nonsmoker Start:18-Nov-2017 Instruction Type:Patient Education How to access health informa tion online - Detail Indication:Nonsmoker Start:18-Nov-2017 Instruction Type:Patient Education Patient Instructions Indication:Nonsmoker Start:18-Nov-2017 Instruction Type:Provider Instructions for Treatment How to access health informa tion online Indication:BMI 26.0-26.9,adult Start:22-May-2017 Instruction Type:Patient Education How to access health informa tion online - Detail Indication:BMI 26.0-26.9,adult Start:22-May-2017 Instruction Type:Patient Education Patient Instructions Indication:BMI 26.0-26.9,adult Start:22-May-2017 Instruction Type:Provider Instructions for Treatment How to access health informa tion online Indication:Nonsmoker Start:13-Mar-2017 Instruction Type:Patient Education How to access health informa tion online - Detail Indication:Nonsmoker Start:13-Mar-2017 Instruction Type:Patient Education Patient Instructions Indication:Nonsmoker Start:13-Mar-2017 Instruction Type:Provider Instructions for Treatment How to access health informa tion online Indication:Body mass index 25.0-25.9, adult Start:01-Mar-2017 Instruction Type:Patient Education How to access health informa tion online - Detail Indication:Body mass index 25.0-25.9, adult Start:01-Mar-2017 Instruction Type:Patient Education Patient Instructions Indication:Body mass index 25.0-25.9, adult Start:01-Mar-2017 Instruction Type:Provider Instructions for Treatment How to access health informa tion online Indication:Right knee pain Start:27-Feb-2017 Instruction Type:Patient Education How to access health informa tion online - Detail Indication:Right knee pain Start:27-Feb-2017 Instruction Type:Patient Education Patient Instructions Indication:Right knee pain Start:27-Feb-2017 Instruction Type:Provider Instructions for Treatment How to access health informa tion online Indication:Nonsmoker Start:27-Apr-2016 Instruction Type:Patient Education How to access health informa tion online - Detail Indication:Nonsmoker Start:27-Apr-2016 Instruction Type:Patient Education Patient Instructions Indication:Nonsmoker Start:27-Apr-2016 Instruction Type:Provider Instructions for Treatment How to access health informa tion online Indication:History of Clostridium difficile Start:04-Apr-2015 Instruction Type:Patient Education How to access health informa tion online - Detail Indication:History of Clostridium difficile Start:04-Apr-2015 Instruction Type:Patient Education Patient Instructions Indication:History of Clostridium difficile Start:04-Apr-2015 Instruction Type:Provider Instructions for Treatment Patient Instructions Indication:C. difficile diarrhea Start:14-Mar-2015 Instruction Type:Provider Instructions for Treatment How to access health informa tion online Indication:C. difficile diarrhea Start:14-Mar-2015 Instruction Type:Patient Education How to access health informa tion online - Detail Indication:C. difficile diarrhea Start:14-Mar-2015 Instruction Type:Patient Education Name Dates Details Nonsmoker : How to access he alth information online Indication:Nonsmoker Nonsmoker : How to access he alth information online - Detail Indication:Nonsmoker Nonsmoker : Patient Instruct ions Indication:Nonsmoker BMI 26.0-26.9,adult : How to access health information online Indication:BMI 26.0-26.9,adult BMI 26.0-26.9,adult : How to access health information online - Detail Indication:BMI 26.0-26.9,adult BMI 26.0-26.9,adult : Patien t Instructions Indication:BMI 26.0-26.9,adult Body mass index 25.0-25.9, a dult : How to access health information online Indication:Body mass index 25.0-25.9, adult Body mass index 25.0-25.9, a dult : How to access health information online - Detail Indication:Body mass index 25.0-25.9, adult Body mass index 25.0-25.9, a dult : Patient Instructions Indication:Body mass index 25.0-25.9, adult Right knee pain : How to acc ess health information online Indication:Right knee pain Right knee pain : How to acc ess health information online - Detail Indication:Right knee pain Right knee pain : Patient In structions Indication:Right knee pain History of Clostridium diffi cile : How to access health information online Indication:History of Clostridium difficile History of Clostridium diffi cile : How to access health information online - Detail Indication:History of Clostridium difficile History of Clostridium diffi cile : Patient Instructions Indication:History of Clostridium difficile C. difficile diarrhea : Kelly ent Instructions Indication:C. difficile diarrhea C. difficile diarrhea : How to access health information online Indication:C. difficile diarrhea C. difficile diarrhea : How to access health information online - Detail Indication:C. difficile diarrhea Advance Directives Name Dates Details Immunization Registry [facility] - Effective on 12/13/2017. Expiration date unspecified Effective:13-Dec-2017 Name Dates Details Immunization Registry [facility] - Effective on 12/13/2017. Expiration date unspecified Effective:13-Dec-2017 Name Dates Details Immunization Registry [place] - Effective on 12/13/2017. Expiration date unspecified Effective:13-Dec-2017 Name Dates Details Immunization Registry [place] - Effective on 12/13/2017. Expiration date unspecified Effective:13-Dec-2017 Name Dates Details Immunization Registry [place] - Effective on 12/13/2017. Expiration date unspecified Effective:13-Dec-2017 Name Dates Details Immunization Registry [place] - Effective on 12/13/2017. Expiration date unspecified Effective:13-Dec-2017 Name Dates Details Immunization Registry [place] - Effective on 12/13/2017. Expiration date unspecified Effective:13-Dec-2017 Name Dates Details Immunization Registry [place] - Effective on 12/13/2017. Expiration date unspecified Effective:13-Dec-2017 Name Dates Details Immunization Registry [place] - Effective on 12/13/2017. Expiration date unspecified Effective:13-Dec-2017 Name Dates Details Immunization Registry [place] - Effective on 12/13/2017. Expiration date unspecified Effective:13-Dec-2017 Name Dates Details Immunization Registry [place] - Effective on 12/13/2017. Expiration date unspecified Effective:13-Dec-2017 Name Dates Details Immunization Registry [place] - Effective on 12/13/2017. Expiration date unspecified Effective:13-Dec-2017 Name Dates Details Immunization Registry [facility] - Effective on 12/13/2017. 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 Expiration date unspecified Effective:13-Dec-2017 Name Dates Details Immunization Registry [facility] - Effective on 12/13/2017. Expiration date unspecified Effective:13-Dec-2017 Name Dates Details Immunization Registry [facility] - Effective on 07/11/2022. Expiration date unspecified Effective:11-Jul-2022 Name Dates Details Immunization Registry [facility] - Effective on 07/11/2022. Expiration date unspecified Effective:11-Jul-2022 Name Dates Details Immunization Registry [facility] - Effective on 07/11/2022. Expiration date unspecified Effective:11-Jul-2022 Name Dates Details Immunization Registry [place] - Effective on 07/11/2022. Expiration date unspecified Effective:11-Jul-2022 Name Dates Details Immunization Registry [place] - Effective on 07/11/2022. Expiration date unspecified Effective:11-Jul-2022 Name Dates Details Immunization Registry [place] - Effective on 07/11/2022. 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 January 31, 2023 1:13pm Advance Directive Response Recorded Date/ Time Advance Directives No March 09, 2015 1:14am Living Will No January 31 2:13pm Power of Towel Rolling Machine Operator No January 31, 2023 2:13pm Advance Directive Response Recorded Date/ Time Advance Directives No April 30, 2024 2:04pm Chief Complaint and Reason for Visit Chief Complaint LAC Chief Complaint xray Chief Complaint Umbilical Hernia UPDATE H&P FOR UMBILICAL HERNIA Hernia, Umbilical Repair w/ Mesh Hernia, Umbilical Repair w/ Mesh Reason for Visit Incarcerated umbilic al hernia Chief Complaint Hernia Surgery 02/13 Hernia Surgery 02/13 Reason for Visit History of umbilical hernia repair History of umbilical hernia repair Chief Complaint Admit Date XRAY April 30, 2024 1 :06pm PSA June 16, 2024 10: 50am Chief Complaint Admit Date XRAY April 30, 2024 1 :06pm PSA June 16, 2024 10: 50am Pain in left arm July 15, 2024 2:5 4pm Chief Complaint Admit Date RENAL CYST December 07, 2024 11:38am Summary Purpose Additional Source Comments Goals (unrecognized section and content) Goals may be documented in a n alternate sectionGoals may be documented in an alternate sectionGoals may be documented in an alternate sectionGoals may be documented in an alternate sectionGoals may be documented in an alternate sectionGoals may be documented in an alternate section No data available for this section No data available for this section No data available for this section No data available for this section No data available for this sectionGoals may be documented in an alternate section Care Teams (unrecognized sec tion and content) Team Status: Active Member Role Status Dates Dr. Rosita Capone , DO Family Provider Active Dr. Rosita Capone , DO Primary Care Provider Active Team Status: Inactive Member Role Status Dates Dr. Rosita Capone , DO Primary Care Provider Active Dr. Harrison Lopez MD Attending Provider, Referr ing Provider Active Team Status: Inactive Member Role Status Dates Dr. Rosita Capone , DO Primary Care Provider Active Dr. Mauricio Montgomery MD Attending Provider Active Team Status: Inactive Member Role Status Dates Dr. Rosita Capone , DO Primary Care Pr ovider, Attending Provider, Referring Provider Active Team Status: Inactive Member Role Status Dates Dr. Rosita Capone DO Primary Care Provider, Referr ing Provider Active Dr. Marya Russ MD Attending Provider Active Team Status: Active Member Role Status Dates Dr. Rosita Capone DO Primary Care Provider Active Dr. Marya Russ MD Attending Provi ron, Referring Provider, Other Provider Active Team Status: Inactive Member Role Status Dates Dr. Rosita Capone DO Primary Care Provider Active Dr. Marya Russ MD Attending Provider, Referring Provider Active Team Status: Inactive Member Role Status Dates Dr. Rosita Capone DO Primary Care Provider Active Anaya Banks , CLINICAL REVIEWER-C Attending Provider, Referrin g Provider Active Monotype Operator Relationship Specialty Start Date End Date Rosita Capone DO [address] [place] [address] PCP - General Internal Medicine 05/22/24 Monotype Operator Relationship Specialty Start Date End Date Rosita Capone DO [address] [place] [address] PCP - General Internal Medicine 05/22/24 Monotype Operator Relationship Specialty Start Date End Date Rosita Capone DO [address] [place] [address] PCP - General Internal Medicine 05/22/24 Monotype Operator Relationship Specialty Start Date End Date Rosita Capone DO [address] [place] [address] PCP - General Internal Medicine 05/22/24 Monotype Operator Relationship Specialty Start Date End Date Rosita Capone DO [address] [place] [address] PCP - General Internal Medicine 05/22/24 Monotype Operator Relationship Specialty Start Date End Date Rosita Capone DO [address] [facility] [address] [place] [address] PCP - General Internal Medicine 05/22/24 Team Status: Inactive Member Role Status Dates Dr. Rosita Capone DO Primary Care Provider Active Start: April 30, 2024 End: April 30, 2024 Dr. Mauricio Montgomery MD Attending Provider Active S tart: April 30, 2024 End: April 30, 2024 Team Status: Inactive Member Role Status Dates Dr. Rosita Capone DO Primary Care Provider Active Start: June 16, 2024 End: June 16, 2024 Amanda Petersburg Attending Provider Active Start : June 16, 2024 End: June 16, 2024 Amanda Petersburg Referring Provider Active Start : June 16, 2024 End: June 16, 2024 Monotype Operator Relationship Specialty Start Date End Date Rosita Capone DO [address] [facility] [address] [place] [address] PCP - General Internal Medicine 05/22/24 Team Status: Active Member Role Status Dates Dr. Rosita Capone DO Primary Care Provider Active Team Status: Inactive Member Role Status Dates Dr. Rosita Capone DO Primary Care Provider Active Start: July 15, 2024 End: July 15, 2024 SKY Frye Attending Provider Active Start: July 15, 2024 End: July 15, 2024 SKY Frye Referring Provider Active Start: July 15, 2024 End: July 15, 2024 Team Status: Active Member Role Status Dates Dr. Rosita Capone DO Primary Care Provider Active Start: July 15, 2024 Dr. Uri Mendosa MD Attending Provider Active S tart: July 15, 2024 Monotype Operator Relationship Specialty Start Date End Date Rosita Capone DO [address] [facility] [address] [place], [place] [id number] PCP - General Internal Medicine 05/22/24 Celia Castillo MD [address] [facility] [address] [place] [address] General Surgery 09/28/24 Team Status: Active Member Role/Relationship Status Dates Dr. Rosita Capone DO Primary care physician Active Team Status: Inactive Member Role/Relationship Status Dates Dr. Rosita Capone DO Primary care physician Active Start: December 07, 2024 End: December 07, 2024 Dr. Rosita Caopne DO Attending physician Active Start: December 07, 2024 End: December 07, 2024 Dr. Rosita Capone DO Referring Provider Active Start: December 07, 2024 End: December 07, 2024 (unrecognized sect ion and content) No Status Records FoundNo Status Records FoundNo Status Records FoundNo Status Records FoundNo Status Records Found INFORMATION SOURCE (unrecogn ized section and content) DATE CREATED AUTHOR [facility] DATE CREATED AUTHOR AUTHOR'S ORGANIZ ATION 08/05/2024 [facility] DATE CREATED AUTHOR AUTHOR'S ORGANIZ ATION 09/18/2024 [facility] DATE CREATED AUTHOR AUTHOR'S ORGANIZ ATION 09/29/2024 [facility] DATE CREATED AUTHOR AUTHOR'S ORGANIZ ATION 12/20/2024 [facility] Source Comments (unrecognize d section and content) In the event this informatio n is protected by the Federal Confidentiality of Alcohol and Drug Abuse Patient Records regulations: The Federal rules restrict any use of the information to criminally investigate or prosecute any alcohol or drug abuse patient.[facility] the event this information is protected by the Federal Confidentiality of Alcohol and Drug Abuse Patient Records regulations: The Federal rules restrict any use of the information to criminally investigate or prosecute any alcohol or drug abuse patient.[facility] the event this information is protected by the Federal Confidentiality of Alcohol and Drug Abuse Patient Records regulations: The Federal rules restrict any use of the information to criminally investigate or prosecute any alcohol or drug abuse patient.[facility] the event this information is protected by the Federal Confidentiality of Alcohol and Drug Abuse Patient Records regulations: The Federal rules restrict any use of the information to criminally investigate or prosecute any alcohol or drug abuse patient.[facility] the event this information is protected by the Federal Confidentiality of Alcohol and Drug Abuse Patient Records regulations: The Federal rules restrict any use of the information to criminally investigate or prosecute any alcohol or drug abuse patient.[facility] the event this information is protected by the Federal Confidentiality of Alcohol and Drug Abuse Patient Records regulations: The Federal rules restrict any use of the information to criminally investigate or prosecute any alcohol or drug abuse patient.[facility] the event this information is protected by the Federal Confidentiality of Alcohol and Drug Abuse Patient Records regulations: The Federal rules restrict any use of the information to criminally investigate or prosecute any alcohol or drug abuse patient.[facility] the event this information is protected by the Federal Confidentiality of Alcohol and Drug Abuse Patient Records regulations: The Federal rules restrict any use of the information to criminally investigate or prosecute any alcohol or drug abuse patient.[facility] the event this information is protected by the Federal Confidentiality of Alcohol and Drug Abuse Patient Records regulations: The Federal rules restrict any use of the information to criminally investigate or prosecute any alcohol or drug abuse patient.[facility] the event this information is protected by the Federal Confidentiality of Alcohol and Drug Abuse Patient Records regulations: The Federal rules restrict any use of the information to criminally investigate or prosecute any alcohol or drug abuse patient.[facility] the event this information is protected by the Federal Confidentiality of Alcohol and Drug Abuse Patient Records regulations: The Federal rules restrict any use of the information to criminally investigate or prosecute any alcohol or drug abuse patient.[facility] the event this information is protected by the Federal Confidentiality of Alcohol and Drug Abuse Patient Records regulations: The Federal rules restrict any use of the information to criminally investigate or prosecute any alcohol or drug abuse patient.[facility] the event this information is protected by the Federal Confidentiality of Alcohol and Drug Abuse Patient Records regulations: The Federal rules restrict any use of the information to criminally investigate or prosecute any alcohol or drug abuse patient.[facility] Reason for Visit (unrecogniz ed section and content) Reason Comments New Patient Evaluation Reason Comments Non-Chemotherapy Treatment Specialty Diagnoses / Procedures Referred By Contkelsi t Referred To Contact Diagnoses Iron deficiency anemia secondary to inadequate dietary iron intake Cathie Salamanca [address] [place] [address] Phone: tel: fax: Cathie Salamanca [address] [place] [address] Phone: tel: fax: Referral ID Status Reason Start Date Expiration Date V isits Requested Visits Authorized [id number] Authorized 05/25/2024 08/23/2024 99 99 Reason Comments Social Work Services Reason Comments Patient Question Reason Comments Patient Update Reason Comments Appointment Reason Comments Consult Colon Cancer FOR RECORDS PERTAINING TO PATIENTS WHO ARE OR HAVE BEEN ENROLLED IN A CHEMICAL DEPENDENCY/SUBSTANCEABUSE PROGRAM, SOME INFORMATION MAY BE OMITTED. This clinical summary was aggregated from multiple sources. Caution should be exercised in using it in the provision of clinical care. This summary normalizes information from multiple sources, and as a consequence, information in this document may materially change the coding, format and clinical context of patient data. In addition, data may be omitted in some cases. CLINICAL DECISIONS SHOULD BE BASED ON THE PRIMARY CLINICAL RECORDS. [facility]. provides no warranty or guarantee of the accuracy or completeness of information in this document.
== END | disposition home or self-care (01) ==
LOC: CT 07:07
PROVIDERS: PCP Internal Medicine; Referring Provider Urology; Visit Provider Urology
DX: R31.0 Gross hematuria (principal)
CPT/HCPCS: 74176

== ENCOUNTER → 2025-01-21 | Outpatient (CLI) | payer MEDICARE, OTHER, SELFPAY ==
[2025-01-21 13:09] LABS: Hematocrit 47.4 % (40-54); Hemoglobin 15.7 g/dL (13.0-16.5); Mean Corp Hgb Conc 33.1 g/dL (32-36); Mean Corpuscular Volume 84.8 fL (80-94); Mean Platelet Vol. 9.2 fl (6.2-12.0); Platelet Count 302 K/mm3 (150-450); RBC Distribution Width CV 13.2 % (11.6-14.6); RBC Distribution Width SD 40.5 fl (35.1-43.9); Red Blood Count 5.59 M/mm3 (4.6-6.2); White Blood Count 7.9 K/mm3 (4.4-11.0)
[2025-01-21 13:44] LABS: Anion Gap 10 (5-15); BUN 18 mg/dL (4-19); BUN/Creat Ratio 18.7 RATIO (10-20); Calcium,Total 9.5 mg/dL (7.6-11.0); Carbon Dioxide 26.4 mmol/L (21.0-32.0); Chloride 102 mmol/L (98-108); Glucose 79 mg/dL (70-99); Potassium 4.4 mmol/L (3.3-5.1)
== END | disposition home or self-care (01) ==
LOC: LAB 12:35
PROVIDERS: PCP Internal Medicine; Referring Provider Urology; Visit Provider Urology
DX: Z01.812 Encounter for preprocedural laboratory examination (principal); Z01.818 Encounter for other preprocedural examination
CPT/HCPCS: 36415; 80048; 85027

== ENCOUNTER 2025-01-31 01:11 | Emergency (ER) | payer MEDICARE, OTHER, SELFPAY ==
[2025-01-31 01:12] VITALS: BP 165/95; PULSE 73; RESP 16; TEMP 36.8; O2SAT 95; BMI 25.0
[2025-01-31 01:16] VITALS: BP 165/95; PULSE 61; RESP 16; TEMP 36.8; O2SAT 98
[2025-01-31] MEDS: Lidocaine Jelly 2% 20 ML Syringe (URO-JET) 1 APPLIC TOPICAL (01:32)
--- NOTE | 2025-01-31 01:34 | EX.ED.DYSGE1 ---
HPI History of Present Illness Chief Complaint: Ibrahim C/O Informant: patient and spouse/S.O. Narrative Narrative: Patient is a 74-year-old male with past medical history of BPH as well as kidney stones. He was recently seen by urology and they attempted a laser lithotripsy in order to break up his kidney stone so that he could pass them. He states that this was unsuccessful so he had to have a stent placed. He states that after this procedure he had increased bleeding which led to urinary retention. He then had a Ibrahim catheter placed by the urologist on Saturday evening. He states Saturday afternoon he noticed some leakage around the catheter. He states that it occurred off and on but that this evening it worsened and therefore with the persistent and worsening symptoms he has concerned the catheter may be dislodged or obstructed and therefore comes in for evaluation [facility] Medical History (Reviewed 01/31/25 @ 01:[address] Aj Wayne, DO) Wears glasses History of Clostridium difficile infection Anxiety Alcohol use Skin tear Arthritis Prostate disease Non-smoker History of echocardiogram Infected hand BPH (benign prostatic hyperplasia) C. difficile colitis Syncope Home Medications ?Medication ?Instructions ?Recorded ?Last Taken ?Type antiarthritic combination no.2 900 900 mg PO DAILY 11/12/14 02/12/23 History mg tablet (glucosamine-chondroitin) multivitamin with folic acid 400 1 tab PO DAILY 01/24/15 02/12/23 History mcg tablet (Thera) finasteride 5 mg tablet (Proscar) 5 mg PO DAILY 12/15/17 02/13/23 History tamsulosin 0.4 mg capsule (Flomax) 0.4 mg PO QHS 12/15/17 02/12/23 History ascorbic acid (vitamin C) 1,000 mg 1 g PO DAILY 01/31/23 02/12/23 History tablet (C-1000) Allergy/AdvReac Type Severity Reaction Status Date / Time adhesive tape Allergy Mild Rash Verified 01/31/25 01:12 EST amoxicillin Allergy Rash Verified 01/31/25 01:12 EST Family History Mother Arthritis Mother Heart disease Father Heart disease Mother Seizures Mother CVA (cerebral vascular accident) Surgical History (Updated 02/27/23 @ 14:[address] Marya Russ MD) History of umbilical hernia repair History of surgery History of wisdom tooth extraction Social History household members: spouse current occupational status: employed Smoking Status: Never smoker ROS ROS ED Constitutional Constitutional ED: Denies chills or fever(s) ENT ENT ED: Denies sore throat Cardiovascular Cardiovascular: Denies chest pain Respiratory/Chest Respiratory/Chest: Denies cough or dyspnea Gastrointestinal Gastrointestinal: Denies abdominal pain, diarrhea, nausea or vomiting Genitourinary Genitourinary ED: Reports hematuria Musculoskeletal Musculoskeletal: Reports back pain Integumentary Denies rash Neurologic Neurologic: Denies headache(s) Hematologic/Lymphatic Hematologic/Lymphatic: Denies easy bleeding or easy bruising EXAM Physical Exam Const Vital Signs: 01/31/25 01:12 EST 01/31/25 01:16 EST Temperature 98.2 F 98.2 F Temperature Source Oral Oral Pulse Rate 73 61 Respiratory Rate 16 16 Blood Pressure 165/95 H 165/95 H Blood Pressure Mean 118 118 Pulse Ox 95 98 Oxygen Delivery Method Room Air Room Air Positive well nourished and well developed General Appearance ED: well developed; Negative for pallor HEENT HEENT Narrative: Normocephalic atraumatic Eyes PERRL and EOMs intact bilaterally General Eye ED: Negative for scleral icterus Neck supple Resp normal respiratory effort and clear to auscultation bilaterally Cardio regular rate and regular rhythm GI non-tender and non-distended GI Narrative: In the suprapubic/lower midline abdomen there is mild organomegaly noted concerning for urinary retention No pulsatile mass. No peritoneal signs. Remainder of the abdomen is soft and nondistended with normal active bowel sounds Auscultation: normoactive bowel sounds Palpation: soft Extremity normal to inspection Neuro oriented x3, CN's II-XII intact bilaterally and no sensory deficits noted Sensorium / Orientation: alert Motor Exam: strength 5/5 throughout Psych mental status grossly normal Skin no rashes or lesions noted General Skin Exam: Negative for jaundice or pallor MDM MDM MDM Narrative Medical decision making narrative: Patient arrived to the ER hypertensive but otherwise with stable vitals. He had a catheter placed by urology secondary to retention roughly 36 hours ago. By physical exam there is a catheter malfunction as there is leakage of urine around the catheter insertion site at the urethral meatus as well as physical exam showing mild urinary retention changes. At this time I have low concern for secondary infection as he is afebrile and also low concern for acute kidney injury as the urine has been leaking around the insertion site. With his history of known kidney stone BPH and bleeding there most likely has been clots that are formed and have led to obstruction of the Ibrahim catheter. Therefore the catheter was removed and a new 1 was placed by nursing staff. After the catheter was placed there was drainage of urine and resolution of the mild retention noted on physical exam. He was washed in the ER for 30 to 45 minutes and had consistent drainage of urine without leakage. Therefore do not feel the need for emergent urology consultation or further workup when he is otherwise safe for discharge. History & Record Review Discussion w/independent historian: Patient and Significant other Discharge Plan Triage Chief Complaint: Ibrahim C/O ED Provider: Aj Wayne Dx/Rx/DC Orders Clinical Impression: Ibrahim catheter problem, Kidney stone, BPH (benign prostatic hyperplasia) Instructions: ED Ibrahim Catheter, Care Prescriptions: No Action glucosamine-chondroitin 900 MG tablet 900 mg PO DAILY Patient Comments: arthritis multivitamin with folic acid [Thera] 1 TABLET tablet 1 tab PO DAILY Patient Comments: Vitamin tamsulosin [Flomax] 0.4 MG capsule 0.4 mg PO QHS finasteride [Proscar] 5 MG tablet 5 mg PO DAILY ascorbic acid (vitamin C) [C-1000] 1,000 mg tablet 1 g PO DAILY Primary Care Provider: Rosita Hicks Referrals: Harrison Marks MD [Med Staff - Active Staff, Urology] Rosita Hicks DO [Primary Care Provider, Internal Medicine] Activity Restrictions/Additional Instructions: Please continue all of your medications as directed by your doctor. Follow-up with urology for repeat evaluation and return to the ER should you have any further concerns Print Language: Italian Disposition Disposition: Home, Self Care
[2025-01-31 02:12] VITALS: BP 167/83; PULSE 72; RESP 16; TEMP 36.8; O2SAT 100
== END 2025-01-31 02:24 | disposition home or self-care (01) ==
PROVIDERS: Emergency Provider Emergency Medicine; PCP Internal Medicine; Visit Provider Emergency Medicine
DX: T83.031A Leakage of indwelling urethral catheter, initial encounter (principal); N20.0 Calculus of kidney; T83.091A Other mechanical complication of indwelling urethral catheter, initial encounter; Y73.8 Miscellaneous gastroenterology and urology devices associated with adverse incidents, not elsewhere classified; N40.1 Benign prostatic hyperplasia with lower urinary tract symptoms; R33.8 Other retention of urine
CPT/HCPCS: 51702; 99283; A4216

== ENCOUNTER → 2025-02-01 | Outpatient (CLI) | payer MEDICARE, OTHER, SELFPAY ==
--- NOTE | 2025-02-01 07:45 | RAD_ITS ---
PROCEDURE: RAD/Abdomen Single View
== END | disposition home or self-care (01) ==
LOC: LAB 07:37
PROVIDERS: PCP Internal Medicine; Referring Provider Urology; Visit Provider Urology
DX: N20.0 Calculus of kidney (principal)
CPT/HCPCS: 74018

== ENCOUNTER 2025-02-10 09:30 | Day surgery (SDC) | payer MEDICARE, OTHER, SELFPAY ==
--- NOTE | 2025-02-05 14:21 | PAT.ANE_ITS ---
Pre-Assessment Diagnosis/Proposed Procedure Planned Operative Procedure(s): LEFT URETEROSCOPY LASER STENT Anesthesia History Anesthesia History - instructional technology facilitator: Anesthesia History - instructional technology facilitator Hx Hospitalization No 02/05/25 11:28 Any Problems With Anesthesia No 02/05/25 11:28 Cholinesterase deficiency No 02/05/25 11:28 You/Your Family Experience No 02/05/25 11:28 fever (hyperthermia) with Relationship Recent Exposure to Contagious No 04/30/24 13:04 Disease Does patient have nerve No 02/05/25 11:28 stimulator Patient instructed to have device shut off --Does patient have Pacemaker or ICD? When Was Last Pacemaker Check QUESTION #4 FULL TEXT: You/Your Family Experience fever (hyperthermia) with Anesthesia Last Oral Intake Last Oral intake: Last Oral Intake NPO since Meds taken in AM with sips of water? Meds patient instructed to take am of surgery PONV PONV - instructional technology facilitator: PONV - instructional technology facilitator Female No 02/05/25 11:28 HX of Motion Sickness No 02/05/25 11:28 HX of N/V After Surgery No 02/05/25 11:28 Non-Smoker Yes 02/05/25 11:28 Duration of Surgery greater Yes 02/05/25 11:28 than 60 minutes Number of Risk Factors 2 02/05/25 11:28 PONV Score Moderate Risk 02/05/25 11:28 Height & Weight Height & Weight: Anesthesia: Height & Weight Height 5 ft 10 in 01/31/25 01:12 EST Respiratory Assessment Respiratory Assessment - instructional technology facilitator: Respiratory Tract Infection Hx - instructional technology facilitator Hx Respiratory Tract Infection No 02/05/25 11:28 STOP Sleep Apnea STOP Sleep Apnea - instructional technology facilitator: STOP Sleep Apnea - instructional technology facilitator Hx Hypertension Yes: NO MED FOR 2-3 MONTHS 02/05/25 11:28 Hx Sleep Apnea No 02/05/25 11:28 CPAP No 04/30/24 13:04 BIPAP No 04/30/24 13:04 Do you snore loudly (louder No 02/05/25 11:28 than talking or can be heard Do you often feel tired/ No 02/05/25 11:28 fatigued/ sleepy during daytime? Has anyone observed you stop No 02/05/25 11:28 breathing during sleep? STOP Results Negative 02/05/25 11:28 QUESTION #5 FULL TEXT : Do you snore loudly (louder than talking or can be heard through closed doors)? Tobacco Use History Tobacco Use History - instructional technology facilitator: Tobacco Use History - instructional technology facilitator Tobacco Use Smoking Status Never smoker 02/05/25 11:28 Hx Tobacco Use No 02/05/25 11:28 Years Smoking Packs Smoked per Day Smoking Cessation Date was within the last 15 years Hx Smoking Cessation Date Hx Smoking Cessation Counseling Hematologic Medial History Hematologic Hx - instructional technology facilitator: Hematologic Medical Hx - ecologist technician Hx of Blood Transfusion No 02/05/25 11:28 Hx of Transfusion in last 3 No 02/05/25 11:28 Months Date of Last Transfusion (if within last 3 months) Ever experience any problems No 02/05/25 11:28 with transfusion(s)? Specify any problems Hx of Preganancy in last 3 N/A 02/05/25 11:28 Months Nurse Filling Out Transfusion DSCHRIBER 02/05/25 11:28 & Questions: Date: 02/05/25 02/05/25 11:28 Time: 11:29 02/05/25 11:28 Patient unable to answer at this time (ie. confused, unrespo /Reproduction History /Reproductive History - instructional technology facilitator: /Reproductive Hx- instructional technology facilitator Hx Now No 02/05/25 11:28 Gestational Age (in weeks): EDC: Hx Hx Para Hx Section SAB No 02/05/25 11:28 Does the father of the baby or his family experience fever w Father of the baby Malignant Hypertension history comment [facility] Medical History (Updated 02/05/25 @ 11:37 by Wendy Landrum) Cancer Prostate disease Anemia Vertigo Hypertension History of stress test Cardiology follow-up encounter History of irregular heartbeat Wears glasses History of Clostridium difficile infection Arthritis Non-smoker History of echocardiogram BPH (benign prostatic hyperplasia) C. difficile colitis Syncope Home Medications Medication Instructions Recorded Last Taken Type antiarthritic combination no.2 900 900 mg PO DAILY 02/12/23 History mg tablet (glucosamine-chondroitin) multivitamin with folic acid 400 1 tab PO DAILY 02/12/23 History mcg tablet (Thera) finasteride 5 mg tablet (Proscar) 5 mg PO DAILY 02/13/23 History tamsulosin 0.4 mg capsule (Flomax) 0.4 mg PO QHS 12/1502/12/23 History ascorbic acid (vitamin C) 1,000 mg 1 g PO DAILY 02/12/23 History tablet (C-1000) lactobacillus combination no.4 3 3,000 mmu cells PO DA LADAN 02/05/25 Unknown History billion cell capsule (Probiotic) Allergy/AdvReac Type Severity Reaction Status Date / Time adhesive tape Allergy Mild Rash Verified 01/31/25 01:12 EST amoxicillin Allergy Rash Verified 01/31/25 01:12 EST Family History Mother Arthritis Mother Heart disease Father Heart disease Mother Seizures Mother CVA (cerebral vascular accident) Surgical History (Updated 02/05/25 @ 11:37 by Wendy Landrum) Hx of colonoscopy History of colectomy History of ureteroscopy History of umbilical hernia repair History of surgery History of wisdom tooth extraction Social History household members: spouse current occupational status: employed Smoking Status: Never smoker Audit: Pertinent Findings Pertinent Findings EKG Perinent findings: 08/05/2024. Sinus rhythm. LVH. Anterior ST elevation, probably due to LVH. 02/04/2023. Sinus rhythm with PACs. Septal infarct (cited on or before November 13, 2014) Stress test pertinent findings: 08/20/2024. EF of 49% increased to 52% with stress. No defects to suggest ischemia or infarction. Recommendation Anesthesia Recommendation Anesthesia recommendation: OPTIMIZED for anesthesia
[2025-02-10] VITALS (7 sets, daily range): BP systolic 139–156; BP diastolic 80–102; PULSE 74–78; RESP 16; TEMP 36.3–36.8; O2SAT 97–100; BMI 24.0
[2025-02-10] MEDS: Lactated Ringers 1,000 ML 15 ML IV (10:03)
--- NOTE | 2025-02-10 10:13 | PCM.PRE.AN2 ---
ASA Classification* ASA Classification ASA Classification: 2 (BPH) Assessment & Plan Anesthesia* Anesthesia Assessment Anesthesia Assessment: Discussed sedation and/or anesthesia options, risks, benefits, and alternatives with patient/parents/legal guardian/POA. Questions invited. The patient/parents/legal guardian/POA seems to understand and agrees to proceed with anesthesia plan. Reviewed the physical assessment, medical history, allergy history and patient home medications list prior to surgery/procedure/anesthetic and documented any changes. Performed airway and anesthesia risk assessments. Anesthesia Type Anesthesia Type: General History Source History Obtained from:: Patient and Chart Anesthesia Focused Assessment* Temperature: 97.3 F Pulse Rate: 76 Blood Pressure: 155/88 Respiratory Rate: 16 Pulse Ox: 100 Oxygen Delivery Method: Room Air Airway Assessment Mouth opens: >3 cm Mallampati Score: II Neck Range of motion (ROM): Full ROM Labs Anesthesia Preop lab: CBC WBC, (4.4-11.0) 7.9 K/mm3 01/21/25, 12:39 RBC, (4.6-6.2) 5.59 M/mm3 01/21/25, 12:39 Hgb, (13.0-16.5) 15.7 g/dL 01/21/25, 12:39 Hct, (40-54) 47.4 % 01/21/25, 12:39 Plt Count, (150-450) 302 K/mm3 01/21/25, 12:39 CHEMISTRY Potassium, (3.3-5.1) 4.4 mmol/L 01/21/25, 12:39 Sodium, (133-145) 139 mmol/L 01/21/25, 12:39 BUN, (4-19) 18 mg/dL 01/21/25, 12:39 Creatinine, (0.70-1.20) 0.95 mg/dL 01/21/25, 12:39 Glucose, (70-99) 79 mg/dL 01/21/25, 12:39 COAG Pre-Assessment Diagnosis/Proposed Procedure Planned Operative Procedure(s): LEFT URETEROSCOPY LASER STENT Anesthesia History Anesthesia History - c unix developer: Anesthesia History - c unix developer Hx Hospitalization No 02/05/25 11:28 Any Problems With Anesthesia No 02/05/25 11:28 Cholinesterase deficiency No 02/05/25 11:28 You/Your Family Experience No 02/05/25 11:28 fever (hyperthermia) with Relationship Recent Exposure to Contagious No 02/10/25 09:45 Disease Does patient have nerve No 02/05/25 11:28 stimulator Patient instructed to have device shut off --Does patient have Pacemaker No 02/10/25 09:45 or ICD? When Was Last Pacemaker Check QUESTION #4 FULL TEXT: You/Your Family Experience fever (hyperthermia) with Anesthesia Last Oral Intake Last Oral intake: Last Oral Intake NPO since 08:30 02/10/25 09:45 Meds taken in AM with sips of No 02/10/25 09:45 water? Meds patient instructed to take am of surgery PONV PONV - c unix developer: PONV - c unix developer Female No 02/05/25 11:28 HX of Motion Sickness No 02/05/25 11:28 HX of N/V After Surgery No 02/05/25 11:28 Non-Smoker Yes 02/05/25 11:28 Duration of Surgery greater Yes 02/05/25 11:28 than 60 minutes Number of Risk Factors 2 02/05/25 11:28 PONV Score Moderate Risk 02/05/25 11:28 Height & Weight Height & Weight: Anesthesia: Height & Weight Height 5 ft 10 in 02/10/25 09:45 Weight: 76 kg 02/10/25 09:45 Body Mass Index (BMI) 24.0 02/10/25 09:45 Respiratory Assessment Respiratory Assessment - c unix developer: Respiratory Tract Infection Hx - c unix developer Hx Respiratory Tract Infection No 02/05/25 11:28 STOP Sleep Apnea STOP Sleep Apnea - c unix developer: STOP Sleep Apnea - c unix developer Hx Hypertension Yes: NO MED FOR 2-3 MONTHS 02/05/25 11:28 Hx Sleep Apnea No 02/05/25 11:28 CPAP No 04/30/24 13:04 BIPAP No 04/30/24 13:04 Do you snore loudly (louder No 02/05/25 11:28 than talking or can be heard Do you often feel tired/ No 02/05/25 11:28 fatigued/ sleepy during daytime? Has anyone observed you stop No 02/05/25 11:28 breathing during sleep? STOP Results Negative 02/05/25 11:28 QUESTION #5 FULL TEXT : Do you snore loudly (louder than talking or can be heard through closed doors)? Tobacco Use History Tobacco Use History - c unix developer: Tobacco Use History - c unix developer Tobacco Use Smoking Status Never smoker 02/05/25 11:28 Hx Tobacco Use No 02/05/25 11:28 Years Smoking Packs Smoked per Day Smoking Cessation Date was within the last 15 years Hx Smoking Cessation Date Hx Smoking Cessation Counseling Hematologic Medial History Hematologic Hx - c unix developer: Hematologic Medical Hx - clinical documentation improvement specialist Hx of Blood Transfusion No 02/05/25 11:28 Hx of Transfusion in last 3 No 02/05/25 11:28 Months Date of Last Transfusion (if within last 3 months) Ever experience any problems No 02/05/25 11:28 with transfusion(s)? Specify any problems Hx of Preganancy in last 3 N/A 02/05/25 11:28 Months Nurse Filling Out Transfusion DSCHRIBER 02/05/25 11:28 & Questions: Date: 02/05/25 02/05/25 11:28 Time: 11:29 02/05/25 11:28 Patient unable to answer at this time (ie. confused, unrespo /Reproduction History /Reproductive History - c unix developer: /Reproductive Hx- c unix developer Hx Now No 02/05/25 11:28 Gestational Age (in weeks): EDC: Hx Hx Para Hx Section SAB No 02/05/25 11:28 Does the father of the baby or his family experience fever w Father of the baby Malignant Hypertension history comment Active Medications Active Medications: Current Medications Generic Name Dose Route Start Last Admin Trade Name Freq PRN Reason Stop Dose Admin Cefazolin Sodium 2 gm/ Sodium 110 mls @ 200 mls/hr 02/10/25 15:45 02/10/25 10:11 Chloride IV 02/10/25 16:17 Not Given INTRAOP ONE Lactated Ringer's 1,000 mls @ 15 mls/hr 02/10/25 09:45 02/10/25 10:03 IV 15 mls/hr .Q48H CLAUDY Administration PFSH Medical History (Updated 02/08/25 @ 00:01 by Eden Uribe) Cancer Prostate disease Anemia Vertigo Hypertension History of stress test Cardiology follow-up encounter History of irregular heartbeat Wears glasses History of Clostridium difficile infection Arthritis Non-smoker History of echocardiogram BPH (benign prostatic hyperplasia) C. difficile colitis Syncope Home Medications Medication Instructions Recorded Last Taken Type antiarthritic combination no.2 900 900 mg PO DAILY 11/12/14 02/12/23 History mg tablet (glucosamine-chondroitin) multivitamin with folic acid 400 1 tab PO DAILY 01/24/15 02/12/23 History mcg tablet (Thera) finasteride 5 mg tablet (Proscar) 5 mg PO DAILY 12/15/17 02/13/23 History tamsulosin 0.4 mg capsule (Flomax) 0.4 mg PO QHS 12/15/17 02/12/23 History ascorbic acid (vitamin C) 1,000 mg 1 g PO DAILY 01/31/23 02/12/23 History tablet (C-1000) lactobacillus combination no.4 3 3,000 mmu cells PO DAILY 02/05/25 Unknown History billion cell capsule (Probiotic) Allergy/AdvReac Type Severity Reaction Status Date / Time adhesive tape Allergy Mild Rash Verified 01/31/25 01:12 EST amoxicillin Allergy Rash Verified 01/31/25 01:12 EST Family History Mother Arthritis Mother Heart disease Father Heart disease Mother Seizures Mother CVA (cerebral vascular accident) Surgical History (Updated 02/05/25 @ 11:37 by Wendy Landrum) Hx of colonoscopy History of colectomy History of ureteroscopy History of umbilical hernia repair History of surgery History of wisdom tooth extraction Social History household members: spouse current occupational status: employed Smoking Status: Never smoker Review of Systems (Anesthesia) ROS Narrative System reviewed and no additional complaints, except as documented. Physical Exam Const alert, oriented x3 and average body habitus Resp normal respiratory effort, normal air movement and clear to auscultation bilaterally Cardio regular rate, regular rhythm and no murmurs; Negative for diaphoretic
[2025-02-10] MEDS: Cefazolin 1 GM/5 ML Vial 2 GM IV (10:20)
[2025-02-10] MEDS: Lidocaine 1% (5 ml sdv) 5 ML Vial IV (10:24)
[2025-02-10] MEDS: fentaNYL 100 MCG/2 ML Ampul IV (10:36)
--- NOTE | 2025-02-10 10:56 | DCINST_ITS ---
Discharge Instructions DC O2, CPAP, BIPAP needs Home O2 Discharge instructions: No Dressing / Incision Discharge Activity: Return to Normal Activity and May Not Drive (while taking narcotic pain medications.) Dressing / Incision Call your doctor if you observe: Fever of 101 or Higher Follow Up Care Please Follow Up With: Harrison Marks MD When: Call [phone] for an appointment Test Results: Test results from this visit will be discussed in further detail at your follow- up appointment, if applicable. Discharge Plan Admission Primary Reason for Your Visit: laser stone Attending Provider: Harrison Marks Primary Care Provider: Rosita Hicks Instructions Print Language: Luxembourgish Discharge Orders/Prescriptions Prescriptions: New ciprofloxacin HCl [Cipro] 500 mg tablet 500 mg PO BID Qty: 10 0RF Continued glucosamine-chondroitin 900 MG tablet 900 mg PO DAILY Patient Comments: arthritis multivitamin with folic acid [Thera] 1 TABLET tablet 1 tab PO DAILY Patient Comments: Vitamin tamsulosin [Flomax] 0.4 MG capsule 0.4 mg PO QHS finasteride [Proscar] 5 MG tablet 5 mg PO DAILY ascorbic acid (vitamin C) [C-1000] 1,000 mg tablet 1 g PO DAILY Probiotic 3 billion cell capsule 3,000 mmu cells PO DAILY Rx Instructions: administer with a meal Referrals / Follow Up: Rosita Hicks DO [Primary Care Provider, Internal Medicine] Disposition Disposition (needs filled in before D/C Order can be placed): Home, Self Care
--- NOTE | 2025-02-10 10:56 | PCM.OPRPT ---
Operative Report (Standard) Operative Information Date of Procedure: 02/10/25 Pre-Operative Diagnosis: Left kidney stone Post-Operative Diagnosis: The same Surgery/Procedure Performed: Left ureteroscopy laser lithotripsy of stone and left stent placement, left retrograde pyelogram, balloon dilation of ureter [place] operator: No Type of Anesthesia: General RN Documented Start/Stop Times: Operation Date: 02/10/25 15:45 Case Time Into Pre-Op 02/10/25 09:34 Out of Pre-Op 02/10/25 10:16 Anesthesia Start 02/10/25 10:20 Into Room 02/10/25 10:20 Procedure End 02/10/25 10:54 Procedure Start Time: 10:20 Procedure Stop Time: 10:56 Select all DRAINS/GRAFTS/IMPLANTS that apply: Drains Drain details: left stent 6 x 26 cm Estimated Blood Loss: None Specimen collected: No Description of surgery: This is a patient who presents to the hospital for treatment for an obstructing ureter calculi. I discussed with the patient how the surgery would be performed and we reviewed the risks and benefits of the surgery. The risk and benefits include the risk of failure to remove the stone completely and that the patient may need multiple procedures. We discussed the risk of an infection, the risk of bleeding. We discussed the very rare risk of serious complicated injury to the ureter. The patient understands that if the stone is not able to be removed safely that we may abort the procedure and place a stent. After full discussion and all questions address with the patient the consent form was signed the side was marked appropriately and the patient was taken back to the operating room for the procedure. The patient was taken back to the operating room. After induction of anesthesia by the anesthesiology team the patient was placed in dorsolithotomy position. The genitals were prepped and draped in usual sterile fashion. I went into the bladder with a 21 [place]ian rigid cystourethroscope through the urethra. Upon entering the bladder I inspected the trigone the left and right ureteral orifice and the bladder itself. I then cannulated the left ureteral orifice and advanced a 0.038 Glidewire up into the kidney. Then over the Glidewire I advanced a 5 Fr Ureteral catheter and performed a retrograde pyelogram with about 10cc of contrast, to delineate the anatomy and identify the stone location. Then a ureteral balloon dilator was advanced over the wire and the distal ureter was balloon dilated with a 12 Fr x 5cm balloon dilator. After 3 minutes of dilating the ureter the balloon was backloaded off the 0.038 glidewire over the 0.038 guidewire I went in with the flexible 7.5fr ureteroscope. I was able to go inside with the 7.5Fr utereroscope and I pulled out the guidewire and then through the ureteroscope I engage the stone in the left kidney with laser lithotripsy using a 270miron laser fiber with energy setting of 100 Hertz and 0.2 J until the stone was lasered into tiny little pieces that should pass on their own. A retrograde pyelogram was performed with 10cc of contrast and no extravasation of contrast or perforation was identified in the ureter there was some mild irritation of the ureter where the stone was located. I then backed out of the ureter left the wire in place and then over the 0.038 guidewire I placed a double coiled pigtail ureteral stent. The ureteral stent was advanced over the 0.038 guidewire under direct fluoroscopic guidance and direct cystoscopic visual guidance, once the stent was in good position I pulled the wire and the stent coiled in the kidney and bladder in good position. I then drained the patient's bladder and the cystoscope was removed and the patient was taken back to the recovery room in good position. The patient was given discharge instructions to call the office for instructions on when to come to the office to have the stent removed. Surgical Findings: Stone the left kidney lasered completely Complications Complications: No Admit VTE Documentation VTE Present on Admission: No VTE Mechan Device Prophylaxis: SCD's VTE Pharm Prophylaxis ordered?: No
--- NOTE | 2025-02-10 11:15 | PCM.POST.ANE ---
Anesthesia: Postop Eval I Current Vital Signs Temperature: 98 F Pulse Rate: 74 Blood Pressure: 139/85 Respiratory Rate: 16 Pulse Ox: 97 Oxygen Delivery Method: Room Air Assessment Airway patent: Yes Spontaneous unlabored respirations: Yes Mental status: Awake and Calm nausea: No Vomiting: No Anesthesia Complication: No Fluid Hydration Crystalloid volume administer (ml): 600 Total IV fluid infused: 600 Progress Note Anesthesia document: Postop Eval 1 completed: Yes
--- NOTE | 2025-02-10 16:28 | POSTOPAN2_ITS ---
Anesthesia Postop Eval I Sum Postop Eval Completion status Anesthesia document: Postop Eval 1 completed: Yes Anesthesia Postop Eval I Summary Anesthesia Postop Eval I Summary: Anesthesia Postop Eval I: Assessment Summary Airway patent Yes 02/10/25 11:15 OPEN HEARTH WORKER.SKOBY Spontaneous unlabored Yes 02/10/25 11:15 OPEN HEARTH WORKER.LEIDA respirations Mental status Awake,Calm 02/10/25 11:15 OPEN HEARTH WORKER.SKOBY nausea No 02/10/25 11:15 OPEN HEARTH WORKER.ENDYOBY Vomiting No 02/10/25 11:15 OPEN HEARTH WORKER.ENDYOBMaria A Anesthesia Postop Eval I: Fluid Summary Crystalloid volume administer 600 02/10/25 11:15 OPEN HEARTH WORKER.SKOBY (ml) Colloids volume administered ( ml) Blood Product volume administered (ml) Total IV fluid infused 600 02/10/25 11:15 OPEN HEARTH WORKER.ENDYOBMaria A Anesthesia Postop Eval I: Summary Notes Anesthesia Complication No 02/10/25 11:15 OPEN HEARTH WORKER.LEIDA Anesthesia Complication Comment: Post-operative progress note Anesthesia: Postop Eval II Evaluation Mental status: Awake Pain Level: 0 nausea: No Vomiting: No Complications Anesthesia Complication: No
--- NOTE | 2025-02-10 16:28 | PCM.POSTANE2 ---
Anesthesia Postop Eval I Sum Postop Eval Completion status Anesthesia document: Postop Eval 1 completed: Yes Anesthesia Postop Eval I Summary Anesthesia Postop Eval I Summary: Anesthesia Postop Eval I: Assessment Summary Airway patent Yes 02/10/25 11:15 BLACK OXIDE OPERATOR.SKOBY Spontaneous unlabored Yes 02/10/25 11:15 BLACK OXIDE OPERATOR.LEIDA respirations Mental status Awake,Calm 02/10/25 11:15 BLACK OXIDE OPERATOR.SKOBY nausea No 02/10/25 11:15 BLACK OXIDE OPERATOR.ENDYOBY Vomiting No 02/10/25 11:15 BLACK OXIDE OPERATOR.ENDYOBMaria A Anesthesia Postop Eval I: Fluid Summary Crystalloid volume administer 600 02/10/25 11:15 BLACK OXIDE OPERATOR.SKOBY (ml) Colloids volume administered ( ml) Blood Product volume administered (ml) Total IV fluid infused 600 02/10/25 11:15 BLACK OXIDE OPERATOR.ENDYOBMaria A Anesthesia Postop Eval I: Summary Notes Anesthesia Complication No 02/10/25 11:15 BLACK OXIDE OPERATOR.LEIDA Anesthesia Complication Comment: Post-operative progress note Anesthesia: Postop Eval II Evaluation Mental status: Awake Pain Level: 0 nausea: No Vomiting: No Complications Anesthesia Complication: No
--- NOTE | 2025-02-11 16:20 | PCM.HP.STD ---
HPI - General General Date of Admission: 02/10/25 Chief Complaint: kidney stone HPI Narrative RADHA MENG, is a 74 M who presents to laser a kidney stone. [facility] Medical History (Updated 02/08/25 @ 00:01 by Eden Uribe) Cancer Prostate disease Anemia Vertigo Hypertension History of stress test Cardiology follow-up encounter History of irregular heartbeat Wears glasses History of Clostridium difficile infection Arthritis Non-smoker History of echocardiogram BPH (benign prostatic hyperplasia) C. difficile colitis Syncope Home Medications Medication Instructions Recorded Last Taken Type antiarthritic combination no.2 900 900 mg PO DAILY 11/12/14 02/12/23 History mg tablet (glucosamine-chondroitin) multivitamin with folic acid 400 1 tab PO DAILY 01/24/15 02/12/23 History mcg tablet (Thera) finasteride 5 mg tablet (Proscar) 5 mg PO DAILY 12/15/17 02/13/23 History tamsulosin 0.4 mg capsule (Flomax) 0.4 mg PO QHS 12/15/17 02/12/23 History ascorbic acid (vitamin C) 1,000 mg 1 g PO DAILY 01/31/23 02/12/23 History tablet (C-1000) lactobacillus combination no.4 3 3,000 mmu cells PO DAILY 02/05/25 Unknown History billion cell capsule (Probiotic) ciprofloxacin HCl 500 mg tablet 500 mg PO BID #10 tabs 02/10/25 Unknown Rx (Cipro) Allergy/AdvReac Type Severity Reaction Status Date / Time adhesive tape Allergy Mild Rash Verified 01/31/25 01:12 EST amoxicillin Allergy Rash Verified 01/31/25 01:12 EST Family History Mother Arthritis Mother Heart disease Father Heart disease Mother Seizures Mother CVA (cerebral vascular accident) Surgical History (Updated 02/05/25 @ 11:37 by Wendy Landrum) Hx of colonoscopy History of colectomy History of ureteroscopy History of umbilical hernia repair History of surgery History of wisdom tooth extraction Social History household members: spouse current occupational status: employed Smoking Status: Never smoker Vital Signs Vital Signs Vital Signs: Weight Weight: 76 kg Body Mass Index (BMI) 24.0
== END 2025-02-10 13:05 | disposition home or self-care (01) ==
LOC: SDC 09:31 → AC 09:35
PROVIDERS: PCP Internal Medicine; Referring Provider Urology; Visit Provider Urology
DX: N20.2 Calculus of kidney with calculus of ureter (principal); I10 Essential (primary) hypertension; Z79.899 Other long term (current) drug therapy
CPT/HCPCS: 52356; 00873; 76000; C1769; C2617; J2405

== ENCOUNTER 2025-03-22 05:50 | Day surgery (SDC) | payer MEDICARE, OTHER, SELFPAY ==
--- NOTE | 2025-03-11 20:14 | PAT.ANESEVAL ---
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 When Was Last Pacemaker Check QUESTION #4 FULL TEXT: You/Your Family Experience fever (hyperthermia) with Anesthesia Last Oral Intake Last Oral intake: Last Oral Intake NPO since Meds taken in AM with sips of water? Meds patient instructed to take am of surgery PONV PONV - service station equipment mechanic: PONV - service station equipment mechanic Female No 03/11/25 09:02 HX of Motion Sickness No 03/11/25 09:02 HX of N/V After Surgery No 03/11/25 09:02 Non-Smoker Yes 03/11/25 09:02 Duration of Surgery greater Yes 03/11/25 09:02 than 60 minutes Number of Risk Factors 2 03/11/25 09:02 PONV Score Moderate Risk 03/11/25 09:02 Height & Weight Height & Weight: Anesthesia: Height & Weight Height 5 ft 10 in 02/24/25 13:48 Respiratory Assessment Respiratory Assessment - service station equipment mechanic: Respiratory Tract Infection Hx - service station equipment mechanic Hx Respiratory Tract Infection No 03/11/25 09:02 STOP Sleep Apnea STOP Sleep Apnea - service station equipment mechanic: STOP Sleep Apnea - service station equipment mechanic Hx Hypertension No 03/11/25 09:02 Hx Sleep Apnea No 03/11/25 09:02 CPAP No 03/11/25 09:02 BIPAP No 03/11/25 09:02 Do you snore loudly (louder No 03/11/25 09:02 than talking or can be heard Do you often feel tired/ No 03/11/25 09:02 fatigued/ sleepy during daytime? Has anyone observed you stop No 03/11/25 09:02 breathing during sleep? STOP Results Negative 03/11/25 09:02 QUESTION #5 FULL TEXT : Do you snore loudly (louder than talking or can be heard through closed doors)? Tobacco Use History Tobacco Use History - service station equipment mechanic: Tobacco Use History - service station equipment mechanic Tobacco Use Smoking Status Never smoker 03/11/25 09:02 Hx Tobacco Use No 03/11/25 09:02 Years Smoking Packs Smoked per Day Smoking Cessation Date was within the last 15 years Hx Smoking Cessation Date Hx Smoking Cessation Counseling Hematologic Medial History Hematologic Hx - service station equipment mechanic: Hematologic Medical Hx - electroplater helper Hx of Blood Transfusion No 03/11/25 09:02 Hx of Transfusion in last 3 No 03/11/25 09:02 Months Date of Last Transfusion (if within last 3 months) Ever experience any problems No 03/11/25 09:02 with transfusion(s)? Specify any problems Hx of Preganancy in last 3 N/A 03/11/25 09:02 Months Nurse Filling Out Transfusion VCHRISTIN 03/11/25 09:02 & Questions: Date: 03/11/25 03/11/25 09:02 Time: 09:03 03/11/25 09:02 Patient unable to answer at this time (ie. confused, unrespo /Reproduction History /Reproductive History - service station equipment mechanic: /Reproductive Hx- service station equipment mechanic Hx Now No 03/11/25 09:02 Gestational Age (in weeks): EDC: Hx Hx Para Hx Section SAB No 03/11/25 09:02 Does the father of the baby or his family experience fever w Father of the baby Malignant Hypertension history comment [facility] Medical History Cancer Prostate disease Anemia Vertigo Hypertension History of stress test Cardiology follow-up encounter History of irregular heartbeat Wears glasses History of Clostridium difficile infection Arthritis Non-smoker History of echocardiogram Incarcerated umbilical hernia BPH (benign prostatic hyperplasia) C. difficile colitis Syncope Home Medications ?Medication ?Instructions ?Recorded ?Last Taken ?Type multivitamin with folic acid 400 1 tab PO DAILY 01/24/15 02/12/23 History mcg tablet (Thera) finasteride 5 mg tablet (Proscar) 5 mg PO DAILY 12/15/17 02/13/23 History tamsulosin 0.4 mg capsule (Flomax) 0.4 mg PO QHS 12/15/17 02/12/23 History ascorbic acid (vitamin C) 1,000 mg 1 g PO DAILY 01/31/23 02/12/23 History tablet (C-1000) Allergy/AdvReac Type Severity Reaction Status Date / Time adhesive tape Allergy Mild Rash Verified 03/11/25 08:57 amoxicillin Allergy Rash Verified 03/11/25 08:57 Family History Mother Arthritis Mother Heart disease Father Heart disease Mother Seizures Mother CVA (cerebral vascular accident) Surgical History (Updated 03/11/25 @ 09:01 by Keisha Catalan) History of cystoscopy Hx of colonoscopy History of colectomy History of ureteroscopy History of umbilical hernia repair History of surgery History of wisdom tooth extraction Social History household members: spouse current occupational status: employed Smoking Status: Never smoker Audit: Pertinent Findings Pertinent Findings EKG Perinent findings: 02/04/2023. Sinus rhythm with PACs. 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 EF of 52%. Nuclear images demonstrate no evidence of ischemia. Recommendation Anesthesia Recommendation Anesthesia recommendation: OPTIMIZED for anesthesia
[2025-03-22] VITALS (10 sets, daily range): BP systolic 112–162; BP diastolic 70–99; PULSE 67–86; RESP 16–18; TEMP 36.1–36.8; O2SAT 96–100; BMI 24.5
--- OUTSIDE RECORDS SUMMARY | 2025-03-22 05:55 | XMS RPT_ITS | CCD ---
Author Organization [facility] Care Team Providers Care Pest Control Specialist Name Role Phone Rosita Capone Unavailable Kole Juan Unavailable Meghan Caro Unavailable Rashad Proctor Unavailable Gravwaldo, Vanita Unavailable Unavailable Messenger, Camilo Unavailable Unavailable long, dalia Unavailable Unavailable Unavailable Unavailable Rosita Capone Unavailable Kole Juan Unavailable Meghan Caro Unavailable Rashad Proctor Unavailable Yancy Blankenshipin Unavailable Unavailable Messenger, Camilo Unavailable Unavailable George Portillo Unavailable Unavailable Unavailable Unavailable Thanh Ninoska Unavailable Unavailable George Portillo Unavailable Unavailable Sherman Zheng Unavailable Barb Otto Unavailable Unavailable Messenger, Camilo Unavailable Unavailable Ciesa, Jacki Unavailable George Francis Unavailable Unavailable Slarb, Rach Unavailable Unavailable Alvaro, dalia Unavailable Unavailable Rosita Capone DO Unavailable Kole Juan MD Unavailable [phone] Meghan Caro MD Unavailable Dr. Rashad Proctor Unavailable [phone] Sherman Zheng MD Unavailable Rach Pineda LPN Unavailable Unavailable Messenger Camilo LEMUS Unavailable Unavailable Cross HEALTH EDUCATION ASSISTANT, Barb Unavailable Unavailable Ciesa SCHOOL PSYCHOLOGIST, Jacki Unavailable Manchak MEMBERSHIP ASSISTANT, Kati Unavailable Unavailable Unavailable Unavailable Alyssa HEALTH EDUCATION ASSISTANT, Lou Unavailable Unavailable Gravius MEMBERSHIP ASSISTANT, Vanita Unavailable Unavailable Rosita Capone DO Unavailable Yosef MEMBERSHIP ASSISTANT, Kayela Unavailable Unavailable Rosita Capone DO Attending Unavailable Rosita Capone DO Referring Unavailable Rosita Capone DO Consulting Unavailable Boyd Sánchez Unavailable Dr. Rosita Capone Primary Care Provider Dr. Mauricio Montgomery Attending Provider Ziggy HEALTH EDUCATION ASSISTANT, Max Unavailable Unavailable Unavailable Unavailable Marya Russ Unavailable Marco HEALTH EDUCATION ASSISTANT, NADEGE Unavailable Unavailable Flavia Jacome CNP Unavailable Dr. Rosita Capone Primary Care Provider Dr. Rosita Capone Referring Provider Dr. Marya Russ Attending Provider Dr. Marya Russ Referring Provider Dr. Marya Russ Other Provider Dr. Rosita Capone Primary Care Provider Dr. Marya Russ Attending Provider Dr. Marya Russ Referring Provider Dr. Rosita Capone Referring Provider Rosita Capone DO Primary Care Provider Dr. Rosita Capone DO Primary Care Provider Dr. Mauricio Montgomery MD Attending Provider Amanda White Attending Provider Amanda White Referring Provider Ayaz MARTINEZ-CFlavia Attending Provider Ayaz COMMUNICATION LECTURER-C, Flavia Referring Provider Deondre FONTENOT, Dr. Grewal Attending Provider LIBORIO DO, DR BECKER Primary Care Physician JONATHAN FONTENOT, CELIA Attending Unavailable LIBORIO DO, DR BECKER Primary Care Unavailab mora Brown UM, Bridget Grace Unavailable Unavailable JONATHAN FONTENOT, CELIA Attending Unavailable LIBORIO DO, DR BECKER Primary Care Unavailab mora CASTILLO MD, CELIA Admitting Unavailable JONATHAN FONTENOT, CELIA Attending Unavailable HOLLY MARTIN MD Consulting Unavailable LIBORIO DO, DR BECKER Primary Care Unavailab le PALUTSIS DO, TRISTIAN Grace Consulting Unavail able JONATHAN FONTENOT, CELIA Attending Unavailable LIBORIO DO, DR BECKER Primary Care Unavailab mora CASTILLO MD, CELIA Attending Unavailable LIBORIO DO, DR BECKER Primary Care Unavailab le LIBORIO DO, DR BECKER Primary Care Unavailab le LIBORIO DO, DR BECKER Attending Unavailab mora CASTILLO MD, CELIA Attending Unavailable LIBORIO DO, DR BECKER Primary Care Unavailab mora Castillo MD, Celia Stone Unavailable Liborio TURNER, Dr. Becker Primary Care Physician Liborio TURNER, Dr. Becker Attending Physician [phone] Liborio TURNER, Dr. Becker Referring Provider CATHIE SALAMANCA Referring Unavailable ROSITA CAPONE Primary Care Unavailab CATHIE Wick Referring Unavailable LIBORIOROSITA Primary Care Unavailab le SALAMANCACATHIE Referring Unavailable LIBORIOROSITA Primary Care Unavailab le SALAMANCACATHIE Referring Unavailable LIBORIOROSITA Primary Care Unavailab CATHIE Wick Referring Unavailable LIBORIOROSITA Primary Care Unavailab le ABRAMJT DE LUNA Attending Unavailable LIBORIOROSITA Primary Care Unavailab le ABRAMJT DE LUNA Referring Unavailable LIBORIOROSITA Primary Care Unavailab le ABRJT DE [place] ROS[place] Referring Unavailable LIBORIOROSITA Primary Care Unavailab le ABRAMJT DE LUNA Attending Unavailable LIBORIOROSITA Primary Care Unavailab le SALAMANCA, CATHIE Attending Unavailable SALAMANCA, CATHIE Referring Unavailable LIBORIO, ROSITA CAMILO Primary Care Unavailab le SALAMANCA, CATHIE Referring Unavailable LIBORIO, ROSITA CAMILO Primary Care Unavailab le Ayaz, Flavia Attending Unavailable Ayaz, Flavia Referring Unavailable Liborio, Rosita Primary Care Unavailable Liborio, Rosita Attending Unavailable Liborio, Rosita Referring Unavailable Liborio, Rosita Primary Care Unavailable Selina, Asif Referring Unavailable Liborio, Rosita Primary Care Unavailable Selina, Harrison Vega Attending Unavailable Selina, Harrison Vega Attending Unavailable Liborio, Rosita Primary Care Unavailable Selina, Asif Referring Unavailable AndAj hodge Attending Unavailable Liborio, Rosita Primary Care Unavailable Selina, Asif Referring Unavailable Liborio, Rosita Primary Care Unavailable Selina, Harrison Vega Attending Unavailable Selina, Harrison Vega Referring Unavailable Liborio, Rosita Primary Care Unavailable Selina, Harrison Vega Attending Unavailable ValentinaDarrin harleyril Attending Unavailable Liborio, Rosita Primary Care Unavailable Ayaz, Flavia Referring Unavailable Liborio, Rosita Primary Care Unavailable DeondreUri botello Attending Unavailable Liborio, Rosita Attending Unavailable Liborio, Rosita Referring Unavailable Liborio, Rosita Primary Care Unavailable Liborio, Rosita Primary Care Unavailable Immaculata, Amanda Attending Unavailable Immaculata, Amanda Referring Unavailable Allergies Allergy Classification Reported Allergen(s) Allergy Type Date of Onset Reaction(s) Facility (20 sources) Penicillins; Translations: [Penicillins] allergy to substance [facility] Work Phone: Comment on above: Hives (20 sources) Amoxicillin; Translations: [amoxicillin] Drug Allergy 12-20-19 22 Rash, Eruption of skin (disorder) [facility] (5 sources) Adhesive Tape; Translations: [adhesive tape] Allergy to substance 03-18-20 23 Rash [facility] (14 sources) Adhesive Tape-Silicones; Translations: [ADHESIVE TAPE-SILICONES] Drug Allergy 05-22-19 25 Rash [facility] (5 sources) Benzalkonium / Lidocaine; Translations: [benzalkonium chloride-lidocai ne topical] Drug Allergy Eruption of skin (disorder) [facility] (1 source) Amoxicillin Drug Allergy 02-01-20 [facility] Repository NEGATED: Highlighted row has been ruled out! (1 source) drug allergy 05-06-19 [facility] Work Phone: Medications Current [...] for 0 days Refills: 0 Ordered: 25-Dec-2007 Camilo Smith RN Active take 1 tablet by mouth once jodi y GLUCOSAMINE CHONDROITIN (PO Tab) 1 QD for 0 days Refills: 0 Ordered: 25-Dec-2007 Camilo Smith RN Active take 1 tablet by mouth once jodi y GLUCOSAMINE CHONDROITIN (PO Tab) 1 QD for 0 days Refills: 0 Ordered: 25-Dec-2007 Camilo Smith LPN Active ferrous sulfate 200 mg [...] Start: 12-15-2017 take 1 tablet by steven twice daily Finasteride (Proscar) 5 MG tablet Active 5 MG PO TWICE A DAY December 15, 2017 12:00am Start: 01-12-2016 take 1 tablet by steven th once daily fluticasone propionate 0.05 mg/actuat metered dose nasal spray (13 sources) Corticosteroid take 1 spray(s) nasal route once daily as needed fluticasone (FLONASE ALLERGY RELIEF) 50 mcg/actuation nasal spray Use 1 [place] in each nostril once daily as needed. [...] 07/22/24 3:20:00 PM EDT, [facility]: [id number], 177.8, cm, 07/21/24 14:48:00 EDT, Height, 78, [...] for 0 days Refills: 0 Ordered: 08-Jun-2022 Eaton MEMBERSHIP ASSISTANT, Kayela Active MULTIVITAMIN (Or al Liquid) 1 QD for 0 days Refills: 0 Ordered: 07-Jun-2021 Gravius MEMBERSHIP ASSISTANT, Vanita Active MULTIVITAMIN (Or al Liquid) 1 QD for 0 days Refills: 0 Ordered: 12-Dec-2020 Alyssa HEALTH EDUCATION ASSISTANT, Lou Active MULTIVITAMIN (Or al Liquid) 1 QD for 0 days Refills: 0 Ordered: 09-Mar-2020 Fam HEALTH EDUCATION ASSISTANT, Barb Active MULTIVITAMIN (Or al Liquid) 1 QD for 0 days Refills: 0 Ordered: 18-Feb-2020 Cross HEALTH EDUCATION ASSISTANT, Barb Active MULTIVITAMIN (Or al Liquid) 1 QD for 0 days Refills: 0 Ordered: 24-Sep-2018 Julioius MEMBERSHIP ASSISTANT, Vanita Active MULTIVITAMIN (Or al Liquid) 1 QD for 0 days Refills: 0 Ordered: 24-Sep-2018 Gravius , Vanita Active MULTIVITAMIN (Or al Liquid) 1 QD for 0 days Refills: 0 Ordered: 09-Jul-2018 George Portillo Active MULTIVITAMIN (Or al Liquid) 1 QD for 0 days Refills: 0 Ordered: 18-Nov-2017 Camilo Smith LPN Active multivitamin tablet (13 sources) [...] each, # 22 gram(s), 0 Refill(s), [facility]: [facility] #[id number], Ointment, 177, cm, 08/05/24 14:13:00 EDT, Height, [...] 0 Refill(s), 07/22/24 3:20:00 PM EDT, [id number], 177.8, cm, 07/21/24 14:48:00 EDT, Height, 78, [...] 0 Refill(s), 09/04/24 11:33:00 AM EDT, [facility][id number], Acute postoperative pain, 177.8, cm, 08/26/24 12:31:00 [...] 354 mL, 0 Refill(s), [facility]: [facility] #[id number], 177.8, cm, 07/21/24 14:48:00 EDT, Height, kg, 07/21/24 14:48:00 EDT, Dosing Weight Start Date: 07/21/24 Status: Ordered Quantity: 354.0 Unit: mL Repeat number: 1 Start: 07-21-2024 SUPREP magnesi um sulfate/potassium sulfate/sodium sulfate 1.6 g-3.13 g-17.5 g/177 mL oral liquid as directed, Oral, AsDirected, PRN bowel preparation, as directed, instructions given by office, # 354 mL, 0 Refill(s), [facility]: [facility] #[id number], 177.8, cm, 07/21/24 14:48:00 EDT, Height, kg, [...] Quantity: 30 {Tablet_ER_24HR} Refills: 4 Ordered: 21-Aug-2007 Camilo Smith RN Start : 21-Aug-2007 End : 25-Dec-2007 Inactive aspirin 81 mg delayed release oral tablet (20 sources) Platelet Aggregation Inhibitor, Nonsteroidal Anti-inflammatory Drug Start: 02-27-2017 End: 03-29-2017 take 1 tablet by mouth every other day Aspirin Adult Low Strength 81 MG Oral Tablet Delayed Release 1 (one) Tablet DR QOD for 30 days Quantity: 30 {Tablet} Refills: 0 Ordered: 27-Feb-2017 Alicia Cox CNP Start : 27-Feb-2017 End : 29-Mar-2017 Inactive Start: 01-24-2015 take 1 tablet by steven th every other day Start: 01-24-2015 take 81 mg by mouth once daily Aspirin Active 81 MG PO DAILY@0800 January 24, 2015 12:00am Comment on above: Valentina Nicoleori - changed to q od due to [...] Quantity: 28 {Tablet_ER_24HR} Refills: 0 Ordered: 29-Jun-2011 Alicia Cox Start : 29-Jun-2011 End : 13-Jul-2011 Inactive Start: 06-29-2011 End: 07-13-2011 take 2 tablets by mouth once daily BIAXIN XL PAC, 500MG (Oral Tablet Extended Release 24 Hour) 2 (two) Tablet ER 24HR daily for 14 days Quantity: 28 {Tablet_ER_24HR} Refills: 0 Ordered: 29-Jun-2011 Alicia Cox CNP Start : 29-Jun-2011 End : 13-Jul-2011 Inactive [...] Quantity: 20 {Capsule} Refills: 0 Ordered: 14-Jan-2023 Ayaz BERKLEYFlavia Start : 14-Jan-2023 End : 24-Jan-2023 Inactive 0.4 ml enoxaparin sodium 100 mg/ml prefilled syringe (2 sources) Low Molecular Weight Heparin Start: 09-01-2024 End: 09-23-2024 inject 0.4 mL by subcutaneous injection once daily Lovenox 40 mg/0.4 mL injectable solution Dose : 40 mg = 0.4 mL, Subcutaneous, qDay, X 22 day(s), # 8.8 mL, 0 Refill(s), 09/23/24 12:11:00 PM EDT, [facility]: [facility] #[id number], 177.8, cm, 08/26/24 12:31:00 EDT, Height, kg, 08/26/24 12:31:00 EDT, Dosing Weight Start Date: 09/01/24 Stop Date: 09/23/24 Status: Ordered Quantity: 8.8 Unit: mL Repeat number: 1 escitalopram 10 mg oral tablet (20 sources) Serotonin Reuptake Inhibitor Start: 11-27-2007 End: 12-25-2007 take 0.5 tablet by mouth once daily LEXAPRO, 10MG (Oral Tablet) 1/2 Tablet Daily for 0 days Refills: 0 Ordered: 27-Nov-2007 Camilo Smith RN Start : 27-Nov-2007 End : 25-Dec-2007 Inactive gut nicole complex (19 sources) gut nicole comple x Active hydroCHLOROthiazide 25 mg oral tablet (20 sources) Thiazide Diuretic Start: 05-22-2017 End: 05-22-2017 take 1 tablet by mouth once daily HydroCHLOROthiazide 25 MG Oral Tablet 1 (one) Tablet qd for 0 days Quantity: 30 {Tablet} Refills: 1 Ordered: 22-May-2017 Rosita Capone DO, DO, Kathleen Start : 22-May-2017 End : 22-May-2017 Discontinued [...] 200 mg, INTRAVENOUS, ONCE, 1 dose, On Ena 05/28/24 at 1530, Please conduct a 30 minute [...] nasal spray (20 sources) Corticosteroid Start: 06-16-19 15 End: 11-16-19 15 NASONEX, 50MCG/ACT (Nasal Suspension) 2 (two) Puff daily for 0 days Quantity: 1 {Bottle} Refills: 0 Ordered: 15-Nov-2014 Rach Pineda LPN Start : 15-Jun-2014 End : 15-Nov-2014 Discontinued ondansetron 4 mg disintegrating oral tablet (8 sources) Serotonin-3 Receptor Antagonist Start: 03-07-20 15 End: 03-09-20 15 take 1 tablet by [...] Quantity: 10 {Capsule} Refills: 0 Ordered: 06-May-2012 Alicia Cox Start : 06-May-2012 End : 16-May-2012 Inactive promethazine hydrochloride 25 mg oral tablet (20 sources) Phenothiazine Start: 06-16-19 End: 11-16-19 15 take 1 tablet by [...] (20 sources) Anxiety; Translations: [Anxiety] 12-16-2017 Chronic Calculus of urinary tract (1 source) Calculus of kidney; Translations: [Calculus of kidney] Onset: 5 Episodic Cancer of colon (5 sources) Malignant tumor of colon; Translations: [Malignant neoplasm of colon, unspecified] Onset: 5 Chronic Complication of device; implant or graft (1 source) Leakage of indwelling urethral catheter, initial encounter; Translations: [Leakage of indwelling urethral catheter, initial encounter] Onset: 5 Episodic Conditions associated with dizziness or vertigo (20 [...] Microscopic hematuria; Translations: [Increased frequency of urination] Onset: 5 Resolved: 7 03-13-2017 Episodic Comment on above: [...] finding of lung field] 09-28-2024 Episodic Other nervous system disorders (1 source) [...] long as can do his activities and [id number] years runningdoing therapy and has appt with [...] arm; Translations: [Cellulitis of upper limb] Resolved: 03-01-2014 Episodic Comment on above: resolved Superficial injury; contusion (20 sources) Infected insect bite of upper limb; Translations: [Abrasion of hand] Resolved: 05-12-2015 Episodic Syncope (8 sources) Syncope; Translations: [...] source) Cough, unspecified; Translations: [Cough, unspecified] Onset: 5 Past or Other Problems Problem Classification Problem [...] ears; Translations: [Bilateral impacted cerumen] 11-20-2018 Other lower respiratory disease (1 source) Other nonspecific abnormal finding of lung field; Translations: [Lung nodules] Onset: 09-28-2024 Episodic Other non-traumatic joint disorders (12 sources) Pain in right knee; Translations: [Right knee pain] 11-20-2018 Comment on above: dx partial tear of m eniscus on both knees now -- but did therapy and buying time as long as can do his activities and [id number] years runningdoing therapy and has appt with [...] Resolved: 03-16-2015 03-16-2015 Comment on above: did 18see dr christiano stuart last scope 03/18 see [...] Test Name Value Interpretation Reference Range Facility Discharge Instructionon 01-30 Discharge Instruction [facility] Medical Records Department [address] [place] [address] Instructions for Home/Discharge Instructions 02/10/25 1056 MR#: [id number] Acct: [id number] Name: RADHA MENG Rep #: [id number] : 1950 74 From: Harrison Lopez MD PCP: Dr. Rosita Capone DO Status:REG SDC Discharge Instructions DC O2, CPAP, BIPAP needs Home O2 Discharge instructions: No Dressing / Incision Discharge Activity: Return to Normal Activity and May Not Drive (while taking narcotic pain medications.) Dressing / Incision Call your doctor if you observe: Fever of 101 or Higher Follow Up Care Please Follow Up With: Harrison Lopez MD When: Call [phone] for an appointment Test Results: Test results from this visit will be discussed in further detail at your follow-up appointment, if applicable. Discharge Plan Admission Primary Reason for Your Visit: laser stone Attending Provider: Harrison Lopez Primary Care Provider: Rosita Capone Instructions Print Language: Belgian Discharge Orders/Prescriptions Prescriptions: New ciprofloxacin HCl [Cipro] 500 mg tablet 500 mg PO BID Qty: 10 0RF Continued glucosamine-chondroitin 900 MG tablet 900 mg PO DAILY Patient Comments: arthritis multivitamin with folic acid [Thera] 1 TABLET tablet 1 tab PO DAILY Patient Comments: Vitamin tamsulosin [Flomax] 0.4 MG capsule 0.4 mg PO QHS finasteride [Proscar] 5 MG tablet 5 mg PO DAILY ascorbic acid (vitamin C) [C-1000] 1,000 mg tablet 1 g PO DAILY Probiotic 3 billion cell capsule 3,000 mmu cells PO DAILY Rx Instructions: administer with a meal Referrals / Follow Up: Rosita Capone DO [Primary Care Provider, Internal Medicine] Disposition Disposition (needs filled in before D/C Order can be placed): Home, Self Care 02/10/25 1056 Harrison Lopez MD CC: Dr. Rosita Capone, DO Signed [facility] MR/POSTOP.ANEon 02-10-2025 MR/POSTOP.ANE [facility] Medical Records Department [address] [place] [address] Anesthesia Postop Eval I 02/10/25 111 MR#: [id number] Acct: [id number] Name: ULIYVESRADHA REUBEN Rep #: [id number] : 1950 74 From: Alva Soto CRNA PCP: Dr. Rosita Capone, DO Status:[facility] Y Race: C Location: [place] [address] Anesthesia: Postop Eval I Current Vital Signs Temperature: 98 F Pulse Rate: 74 Blood Pressure: 139/85 Respiratory Rate: 16 Pulse Ox: 97 Oxygen Delivery Method: Room Air Assessment Airway patent: Yes Spontaneous unlabored respirations: Yes Mental status: Awake and Calm nausea: No Vomiting: No Anesthesia Complication: No Fluid Hydration Crystalloid volume administer (ml): 600 Total IV fluid infused: 600 Progress Note Anesthesia document: Postop Eval 1 completed: Yes 02/10/251114 Date Alva Soto INTERNET MARKETING SPECIALIST Cosigner Signature: Date CC: Signed [facility] MR/[id number] 02-10-2025 MR/POSTOPAN2 [facility] Medical Records Department [address] [facility] [place] [address] Anesthesia Postop Eval II 02/10/25 1628 MR#: [id number] Acct: [id number] Name: YUSRARADHA Rep #: [id number] : 1950 74 From: Raúl Carranza MD PCP: Dr. Rosita Capone, DO Status:DEP SDC Y Race: C Location: [facility] Anesthesia Postop Eval I Sum Postop Eval Completion status Anesthesia document: Postop Eval 1 completed: Yes Anesthesia Postop Eval I Summary Anesthesia Postop Eval I Summary: Anesthesia Postop Eval I: Assessment Summary Airway patent Yes 02/10/25 11:15 INTERNET MARKETING SPECIALIST.SKOBY Spontaneous unlabored Yes 02/10/25 11:15 INTERNET MARKETING SPECIALIST.SKOBY respirations Mental status Awake,Calm 02/10/25 11:15 INTERNET MARKETING SPECIALIST.SKOBY nausea No 02/10/25 11:15 INTERNET MARKETING SPECIALIST.SKOBY Vomiting No 02/10/25 11:15 INTERNET MARKETING SPECIALIST.SKOBY Anesthesia Postop Eval I: Fluid Summary Crystalloid volume administer 600 02/10/25 11:15 INTERNET MARKETING SPECIALIST.SKOBY (ml) Colloids volume administered ( ml) Blood Product volume administered (ml) Total IV fluid infused 600 02/10/25 11:15 INTERNET MARKETING SPECIALIST.SKOBY Anesthesia Postop Eval I: Summary Notes Anesthesia Complication No 02/10/25 11:15 INTERNET MARKETING SPECIALIST.SKOBY Anesthesia Complication Comment: Post-operative progress note Anesthesia: Postop Eval II Evaluation Mental status: Awake Pain Level: 0 nausea: No Vomiting: No Complications Anesthesia Complication: No 02/10/25 1628 Date Raúl Carranza MD Cosigner Signature: Date CC: Signed [facility] Operative Reporton 5 Operative Report [facility] Medical Records Department [address] [place] [address] Operative Report 02/10/25 1056 MR#: [id number] Acct: [id number] Name: RADHA MENG Rep #: [id number] : 1950 74 From: Harrison Lopez MD PCP: Dr. Rosita Capone, DO Status:REG [facility] Location: [place] [address] Operative Report (Standard) Operative Information Date of Procedure: 02/10/25 Pre-Operative Diagnosis: Left kidney stone Post-Operative Diagnosis: The same Surgery/Procedure Performed: Left ureteroscopy laser lithotripsy of stone and left stent placement, left retrograde pyelogram, balloon dilation of ureter traveling sales representative: No Type of Anesthesia: General RN Documented Start/Stop Times: Operation Date: 02/10/25 15:45 Case Time Into Pre-Op 02/10/25 09:34 Out of Pre-Op 02/10/25 10:16 Anesthesia Start 02/10/25 10:20 Into Room 02/10/25 10:20 Procedure End 02/10/25 10:54 Procedure Start Time: 10:20 Procedure Stop Time: 10:56 Select all DRAINS/GRAFTS/IMPLANTS that apply: Drains Drain details: left stent 6 x 26 cm Estimated Blood Loss: None Specimen collected: No Description of surgery: This is a patient who presents to the hospital for treatment for an obstructing ureter calculi. I discussed with the patient how the surgery would be performed and we reviewed the risks and benefits of the surgery. The risk and benefits include the risk of failure to remove the stone completely and that the patient may need multiple procedures. We discussed the risk of an infection, the risk of bleeding. We discussed the very rare risk of serious complicated injury to the ureter. The patient understands that if the stone is not able to be removed safely that we may abort the procedure and place a stent. After full discussion and all questions address with the patient the consent form was signed the side was marked appropriately and the patient was taken back to the operating room for the procedure. The patient was taken back to the operating room. After induction of anesthesia by the anesthesiology team the patient was placed in dorsolithotomy position. The genitals were prepped and draped in usual sterile fashion. I went into the bladder with a 21 Turkish rigid cystourethroscope through the urethra. Upon entering the bladder I inspected the trigone the left and right ureteral orifice and the bladder itself. I then cannulated the left ureteral orifice and advanced a 0.038 Glidewire up into the kidney. Then over the Glidewire I advanced a 5 Fr Ureteral catheter and performed a retrograde pyelogram with about 10cc of contrast, to delineate the anatomy and identify the stone location. Then a ureteral balloon dilator was advanced over the wire and the distal ureter was balloon dilated with a 12 Fr x 5cm balloon dilator. After 3 minutes of dilating the ureter the balloon was backloaded off the 0.038 glidewire over the 0.038 guidewire I went in with the flexible 7.5fr ureteroscope. I was able to go inside with the 7.5Fr utereroscope and I pulled out the guidewire and then through the ureteroscope I engage the stone in the left kidney with laser lithotripsy using a 270miron laser fiber with energy setting of 100 Hertz and 0.2 J until the stone was lasered into tiny little pieces that should pass on their own. A retrograde pyelogram was performed with 10cc of contrast and no extravasation of contrast or perforation was identified in the ureter there was some mild irritation of the ureter where the stone was located. I then backed out of the ureter left the wire in place and then over the 0.038 guidewire I placed a double coiled pigtail ureteral stent. The ureteral stent was advanced over the 0.038 guidewire under direct fluoroscopic guidance and direct cystoscopic visual guidance, once the stent was in good position I pulled the wire and the stent coiled in the kidney and bladder in good position. I then drained the patient's bladder and the cystoscope was removed and the patient was taken back to the recovery room in good position. The patient was given discharge instructions to call the office for instructions on when to come to the office to have the stent removed. Surgical Findings: Stone the left kidney lasered completely Complications Complications: No Admit VTE Documentation VTE Present on Admission: No VTE Mechan Device Prophylaxis: SCD's VTE Pharm Prophylaxis ordered?: No 02/10/25 1058 Cosigner Signature (if applicable): CC: Dr. Harrison Lopez MD; Dr. Rosita Capone DO Signed Normal [facility] MR/PATGaldino 02-05-2025 MR/PAT.[facility] Medical Records Department [address] [place] [address] PAT - Anesthesia 02/05/25 1421 MR#: [id number] Acct: [id number] Name: RADHA MENG Rep #: [id number] : 1950 74 From: Ranjan Lamar MD PCP: Dr. Rosita Capone, DO Status:PRE SDC Y Race: C Location: [facility] Pre-Assessment Diagnosis/Proposed Procedure Planned Operative Procedure(s): LEFT URETEROSCOPY LASER STENT Anesthesia History Anesthesia History - purchase analyst: Anesthesia History - purchase analyst Hx Hospitalization No 02/05/25 11:28 Any Problems With Anesthesia No 02/05/25 11:28 Cholinesterase deficiency No 02/05/25 11:28 You/Your Family Experience No 02/05/25 11:28 fever (hyperthermia) with Relationship Recent Exposure to Contagious No 04/30/24 13:04 Disease Does patient have nerve No 02/05/25 11:28 stimulator Patient instructed to have device shut off --Does patient have Pacemaker or ICD? When Was Last Pacemaker Check QUESTION #4 FULL TEXT: You/Your Family Experience fever (hyperthermia) with Anesthesia Last Oral Intake Last Oral intake: Last Oral Intake NPO since Meds taken in AM with sips of water? Meds patient instructed to take am of surgery PONV PONV - purchase analyst: PONV - purchase analyst Female No 02/05/25 11:28 HX of Motion Sickness No 02/05/25 11:28 HX of N/V After Surgery No 02/05/25 11:28 Non-Smoker Yes 02/05/25 11:28 Duration of Surgery greater Yes 02/05/25 11:28 than 60 minutes Number of Risk Factors 2 02/05/25 11:28 PONV Score Moderate Risk 02/05/25 11:28 Height Weight Height Weight: Anesthesia: Height Weight Height 5 ft 10 in 01/31/25 01:12 EST Respiratory Assessment Respiratory Assessment - purchase analyst: Respiratory Tract Infection Hx - purchase analyst Hx Respiratory Tract Infection No 02/05/25 11:28 STOP Sleep Apnea STOP Sleep Apnea - purchase analyst: STOP Sleep Apnea - purchase analyst Hx Hypertension Yes: NO MED FOR 2-3 MONTHS 02/05/25 11:28 Hx Sleep Apnea No 02/05/25 11:28 CPAP No 04/30/24 13:04 BIPAP No 04/30/24 13:04 Do you snore loudly (louder No 02/05/25 11:28 than talking or can be heard Do you often feel tired/ No 02/05/25 11:28 fatigued/ sleepy during daytime? Has anyone observed you stop No 02/05/25 11:28 breathing during sleep? STOP Results Negative 02/05/25 11:28 QUESTION #5 FULL TEXT : Do you snore loudly (louder than talking or can be heard through closed doors)? 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 Specify any problems Hx of Preganancy in last 3 N/A 02/05/25 11:28 Months Nurse Filling Out Transfusion DSCHRIBER 02/05/25 11:28 Questions: Date: 02/05/25 02/05/25 11:28 Time: 11:02/05/25 11:28 Patient unable to answer at this time (ie. confused, unrespo /Reproduction History /Reproductive History - purchase analyst: /Reproductive Hx- purchase analyst Hx Now No 02/05/25 11:28 Gestational Age (in weeks): EDC: Hx Hx Para Hx Section SAB No 02/05/25 11:28 Does the father of the baby or his family experience fever w Father of the baby Malignant Hypertension history comment [facility] Medical History (Updated 02/05/25 @ 11:37 by Wendy Landrum) Cancer Prostate disease Anemia Vertigo Hypertension History of stress test Cardiology follow-up encounter History of irregular heartbeat Wears glasses History of Clostridium difficile infection Arthritis Non-smoker History of echocardiogram BPH (benign prostatic hyperplasia) C. difficile colitis Syncope Home Medications ???Medication ???Instructions ???Recorded ???Last Taken ???Type antiarthritic combination no.2 900 900 mg PO DAILY 11/12/14 3 History mg tablet (glucosamine-chondroitin) multivitamin with folic acid 400 1 tab PO DAILY 01/24/15 02/12/23 H istory mcg tablet (Thera) finasteride 5 mg tablet (Proscar) 5 mg PO DAILY 12/15/17 (more content not included)... Normal [facility] Abdomen Single Viewon 2024 Abdomen Single View [facility] Imaging Services [address] [place] [address] Abdomen Single View MR#: [id number] Acct: [id number] Name: RADHA MENG Rep #: [id number] : 1950 M 74 From: Moi Vaca PCP: Dr. Rosita Capone DO Status: REG CLI Study: Abdomen Single View Date of Exam: 02/01/25 Exam# [id number] Ordering Dr: Harrison Lopez MD PROCEDURE: ABDOMEN SINGLE VIEW 02/01/2025 REASON FOR EXAM: CALCULUS OF KIDNEY TECHNIQUE: Procedure Code: RADABD Modality: DX Procedure: ABDOMEN SINGLE VIEW COMPARISON: CT examination 01/15/2025. RAD/Abdomen Single View IMPRESSION: Prominent degenerative changes and scoliosis of the spine again noted. The bowel-gas pattern is unremarkable. Left ureteral stent in place. Evaluation for renal calculi is limited by overlying stool. Probable displacement of the previous left ureteropelvic calculus, no likely at the left mid to inferior kidney. Reading Location: [place] [address] CC: Dr. Harrison Lopez MD; Dr. Rosita Capone DO Licensed Occupational Therapist: Signed [facility] CNOVSPon 02-01-2025 CNOVSP Visit (SP) Office (H EMAWS) -- RADHA MENG ([id number]) 1950 M Date Time Provider Department 02/01/25 9:10 AM JT JUNIOR During your visit today, we recorded the following information about you: Temperature Pulse Blood pressure Weight 98.4 degrees 75/minute 151/98 76.7 kg Jt Junior MD 02/01/2025 10:21 AM Signed (Elements copied from my note dated September 28, 2024, have been reviewed and updated where appropriate, and all reflect current assessment and medical decision making from today's encounter, February 01, 2025) HISTORY OF PRESENT ILLNESS: Radha Meng is [...] done, results being sent, not here yet) 02-01-25 follow up, CT chest negative for nodule. CLINICAL IMPRESSION: Transverse colon cancer stage II without high risk features. No role for adjuvant chemotherapy. 2 mm lung nodule, not evident on follow up. RECOMMENDATION/PLAN: 1. Plan surveillance with serial CEA and hepatic panel, yearly CT CAP 2. I will see back after labs and chest CT in July 2025. Written and verbal health teaching given to [...] Tape-Silic* Rash Amoxicillin Rash CURRENT OUTPATIENT MEDICATIONS: ciprofloxacin HCl (CIPRO) 500 mg tablet (Patient taking differently: Take 500 mg by mouth two times a day.) phenazopyridine HCl (PYRIDIUM PO) Take 1 tablet by mouth three times a day as needed. tamsulosin (FLOMAX) 0.4 mg Take 0.4 mg by mouth once daily. finasteride (PROSCAR) 5 mg tablet Take 5 mg by mouth once daily. glucosamine HCl/chondroitin hall (GLUCOSAMINE-CHONDROITIN ORAL) Take 1 tablet by mouth once daily. multivitamin tablet Take 1 tablet by mouth once daily. fluticasone (FLONASE ALLERGY RELIEF) 50 mcg/actuation nasal spray Use 1 [place] in each nostril once daily as needed. OTC PRODUCT Standard Process Prosymbiotic: Take one tablet by mouth once daily. ascorbic acid, vitamin C, (VITAMIN C) 500 mg tablet Take 500 mg by mouth once daily. lisinopril (ZESTRIL) 10 mg tablet Take 10 mg by mouth once daily. (Patient not taking: Reported on 02/01/2025) aspirin, enteric coated (ASPIRIN, ENTERIC COATED) 81 mg EC tablet Take 81 mg by mouth every other day. (Patient not taking: Reported on 02/01/2025) ferrous sulfate (IRON, FERROUS SULFATE,) 325 mg (65 mg iron) tablet Take 325 mg by mouth once daily. (Patient not taking: Reported on 02/01/2025) REVIEW OF SYSTEMS: GENERAL: No fever, night sweats, weight loss or malaise. All other reviewed and negative other than HPI. PHYSICAL EXAMINATION: VITAL SIGNS: BP 151/98 Pulse 75 Temp (Src) 98.4 (Temporal) Wt 169 lb (76.7kg) SpO2 99% GENERAL APPEARANCE: Well appearing, in no acute distress, alert and oriented x3, well-hydrated, well nourished. I spent a total of 30 minutes on the date of the service which included preparing to see the patient, [id number] patient care, completing clinical documentation, obtaining and/or reviewing separately obtained history, counseling and educating the patient/family/caregiver, ordering medications, tests, or procedures, communicating with other HCPs (not separately reported), independently interpreting results (not separately reported), and communicating results to the patient/family/caregiver. Review of NCCN guidelines, outside records Electronically Signed: Jt Junior MD February 01, 2025 Allergies As of Date: 02/01/2025 Noted Allergy Reaction ADHESIVE TAPE-SILICONES 05/22/2024 2 - Rash AMOXICILLIN 05/22/2024 2 - Rash Date Reviewed: 02/01/2025 Reviewed by: Divina Haley Ma, MA - Fully Assessed Reason for Visit: Established Patient [175] Primary Visit Diagnosis:Malignant neoplasm of colon, unspecified part of colon (HCC) [C18.9] Order(s):CT ABD (more content not included)... Normal [facility] Emergency Department Summary on 01-31-2025 Emergency Department Summary [facility] Medical Records Department [address] [place] [address] Emergency Department Summary 01/31/25 MR#: [id number] Acct: [id number] Name: RADHA MENG Rep #: [id number] : 1950 74 From: Aj Wayne DO PCP: Dr. Rosita Capone DO Status:REG ER Location: ED HPI History of Present Illness Chief Complaint: Ibrahim C/O Informant: patient and spouse/S.O. Narrative Narrative: Patient is a 74-year-old male with past medical history of BPH as well as kidney stones. He was recently seen by urology and they attempted a laser lithotripsy in order to break up his kidney stone so that he could pass them. He states that this was unsuccessful so he had to have a stent placed. He states that after this procedure he had increased bleeding which led to urinary retention. He then had a Ibrahim catheter placed by the urologist on Saturday evening. He states Saturday afternoon he noticed some leakage around the catheter. He states that it occurred off and on but that this evening it worsened and therefore with the persistent and worsening symptoms he has concerned the catheter may be dislodged or obstructed and therefore comes in for evaluation [facility] Medical History (Reviewed 01/31/25 @ 01:[address] Aj Wayne DO) Wears glasses History of Clostridium difficile infection Anxiety Alcohol use Skin tear Arthritis Prostate disease Non-smoker History of echocardiogram Infected hand BPH (benign prostatic hyperplasia) C. difficile colitis Syncope Home Medications ???Medication ???Instructions ???Recorded ???Last Taken ???Type antiarthritic combination no.2 900 900 mg PO DAILY 11/12/14 3 History mg tablet (glucosamine-chondroitin) multivitamin with folic acid 400 1 tab PO DAILY 01/24/15 02/12/23 H istory mcg tablet (Thera) finasteride 5 mg tablet (Proscar) 5 mg PO DAILY 12/15/17 02/13/23 H istory tamsulosin 0.4 mg capsule (Flomax) 0.4 mg PO QHS 12/15/17 02/12/23 History ascorbic acid (vitamin C) 1,000 mg 1 g PO DAILY 01/31/23 02/12/23 H istory tablet (C-1000) Allergy/AdvReac Type Severity Reaction Status Date / Time adhesive tape Allergy Mild Rash Verified 01/31/25 01:12 EST amoxicillin Allergy Rash Verified 01/31/25 01:12 EST Family History Mother Arthritis Mother Heart disease Father Heart disease Mother Seizures Mother CVA (cerebral vascular accident) Surgical History (Updated 02/27/23 @ 14:[address] Marya Russ MD) History of umbilical hernia repair History of surgery History of wisdom tooth extraction Social History household members: spouse current occupational status: employed Smoking Status: Never smoker ROS ROS ED Constitutional Constitutional ED: Denies chills or fever(s) ENT ENT ED: Denies sore throat Cardiovascular Cardiovascular: Denies chest pain Respiratory/Chest Respiratory/Chest: Denies cough or dyspnea Gastrointestinal Gastrointestinal: Denies abdominal pain, diarrhea, nausea or vomiting Genitourinary Genitourinary ED: Reports hematuria Musculoskeletal Musculoskeletal: Reports back pain Integumentary Denies rash Neurologic Neurologic: Denies headache(s) Hematologic/Lymphatic Hematologic/Lymphatic: Denies easy bleeding or easy bruising EXAM Physical Exam Const Vital Signs: 01/31/25 01:12 EST 01/31/25 01:16 EST Temperature 98.2 F 98.2 F Temperature Source Oral Oral Pulse Rate 73 61 Respiratory Rate 16 16 Blood Pressure 165/95 H 165/95 H Blood Pressure Mean 118 118 Pulse Ox 95 98 Oxygen Delivery Method Room Air Room Air Positive well nourished and well developed General Appearance ED: well developed; Negative for pallor HEENT HEENT Narrative: Normocephalic atraumatic Eyes PERRL and EOMs intact bilaterally General Eye ED: Negative for scleral icterus Neck supple Resp normal respiratory effort and clear to auscultation bilaterally Cardio regular rate and regular rhythm GI non-tender and non-distended GI Narrative: In the suprapubic/lower midline abdomen there is mild organomegaly noted concerning for urinary retention No pulsatile mass. No peritoneal signs. Remainder of the abdomen is soft and nondistended with normal active bowel sounds Auscultation: normoactive bowel sounds Palpation: soft Extremity normal to inspection Neuro oriented x3, CN's II-XII intact bilaterally and no sensory deficits noted Sensorium / Orientation: alert Motor Exam: strength 5/5 throughout Psych mental status grossly normal Skin no rashes or lesions noted General Skin Exam: Negative for jaundice or pallor MDM MDM MDM Narrative Medical decision making narrative: Patient arri (more content not included)... Normal [facility] Basic Metabolic Profile (BMP )on 01-21-2025 BUN/CRE 18.7 RATIO Normal 01-18 [facility] Comment on above: Performed By: #### L 100.0500, L500.2500 #### [facility] [address] [place], [address] Calcium [Mass/Vol] 9.5 mg/dL Normal 7.6-11.0 [facility] Comment on above: Performed By: #### L 100.0500, L500.2500 #### [facility] [address] [place], [address] Chloride [Moles/Vol] 102 mmol/L Normal 98-108 [facility] Comment on above: Performed By: #### L 100.0500, L500.2500 #### [facility] [address] [place], [address] CO2 [Moles/Vol] 26.4 mmol/L Normal 21.0-32.0 [facility] Comment on above: Performed By: #### L 100.0500, L500.2500 #### [facility] [address] [place], [address] Creatinine [Mass/Vol] 0.95 mg/dL Normal 0.70-1.20 [facility] Comment on above: Performed By: #### L 100.0500, L500.2500 #### [facility] [address] [place], [address] GAP 10 Normal 5-15 [facility] Comment on above: Performed By: #### L 100.0500, L500.2500 #### [facility] [address] [place], [address] GFR/1.73 sq M.predicted among non-blacks MDRD (S/P/Bld) [Vol rate/Area] 85 mL/min/{1.73_m2} Normal >60 [facility] Comment on above: Result Comment: mL/m in/1.73m2 CKD-EPI Creatinine Equation (2020) Performed By: #### L 100.0500, L500.2500 #### [facility] [address] [place], [address] Glucose [Mass/Vol] 79 mg/dL Normal 70-99 [facility] Comment on above: Performed By: #### L 100.0500, L500.2500 #### [facility] [address] [place], [address] Potassium [Moles/Vol] 4.4 mmol/L Normal 3.3-5.1 [facility] Comment on above: Performed By: #### L 100.0500, L500.2500 #### [facility] [address] [place], [address] Sodium [Moles/Vol] 139 mmol/L Normal 133-145 [facility] Comment on above: Performed By: #### L 100.0500, L500.2500 #### [facility] [address] [place], [address] Urea nitrogen [Mass/Vol] 18 mg/dL Normal 4-19 [facility] Comment on above: Performed By: #### L 100.0500, L500.2500 #### [facility] [address] [place], [address] CBC-Complete Blood Cnt No Di ffon 01-21-2025 Erythrocyte distribution width (RBC) [Ratio] 13.2 % Normal 11.6-14.6 [facility] Comment on above: Performed By: #### L 100.0500, L500.2500 #### [facility] [address] [place], [address] Hematocrit (Bld) [Volume fraction] 47.4 % Normal 40-54 [facility] Comment on above: Performed By: #### L 100.0500, L500.2500 #### [facility] [address] [place], [address] Hemoglobin (Bld) [Mass/Vol] 15.7 g/dL Normal 13.0-16.5 [facility] Comment on above: Performed By: #### L 100.0500, L500.2500 #### [facility] [address] [place], [address] MCH (RBC) [Entitic mass] 28.1 pg Normal 27.0-32.0 [facility] Comment on above: Performed By: #### L 100.0500, L500.2500 #### [facility] [address] [place], [address] MCHC (RBC) [Mass/Vol] 33.1 g/dL Normal 32-36 [facility] Comment on above: Performed By: #### L 100.0500, L500.2500 #### [facility] [address] [place], [address] MCV (RBC) [Entitic vol] 84.8 fL Normal 80-94 [facility] Comment on above: Performed By: #### L 100.0500, L500.2500 #### [facility] [address] [place], [address] Platelet mean volume (Bld) [Entitic vol] 9.2 fL Normal 6.2-12.0 [facility] Comment on above: Performed By: #### L 100.0500, L500.2500 #### [facility] [address] [place], [address] Platelets (Bld) [#/Vol] 302 10*3/uL Normal 150-450 [facility] Comment on above: Performed By: #### L 100.0500, L500.2500 #### [facility] [address] [place], [address] RBC (Bld) [#/Vol] 5.59 10*6/uL Normal 4.6-6.2 [facility] Comment on above: Performed By: #### L 100.0500, L500.2500 #### [facility] [address] [place], [address] RDW SD 40.5 fl Normal 35.1-43.9 [facility] Comment on above: Performed By: #### L 100.0500, L500.2500 #### [facility] [address] [place], [address] WBC (Bld) [#/Vol] 7.9 10*3/uL Normal 4.4-11.0 [facility] Comment on above: Performed By: #### L 100.0500, L500.2500 #### [facility] [address] [place], [address] [facility] 01-20-2025 Carcinoembryonic Ag [Mass/Vol] 0.8 ng/mL Normal <=2.9 [facility] Comment on above: Order Comment: Speci men Type: BLOOD SPECIMEN Ordering Facility: [facility] Address: [address] [place] [address] Result Comment: Carc inoembryonic antigen test is used as an aid in monitoring response to treatment or recurrence in patients with established colorectal, breast, lung, prostatic, pancreatic, and ovarian carcinomas. Clinical correlation is required. The Carcinoembryonic antigen test was performed using the [employer] DXI paramagnetic particle chemiluminescent immunoassay method. Results obtained with different assay methods or kits cannot be used interchangeably. Performed By: #### 2 276-4, 38574-5 #### [facility] CLIA [id number] [address] [place] [address] [place] CT CHEST WO IVCONon 01-21-[address] CHEST WO IVCON * * *Final Report* * * DATE OF EXAM: Jan 20 2025 3:22PM [facility] 0541 - CT CHEST WO IVCON / PROCEDURE REASON: Lung nodules * * * * Physician Interpretation * * * * EXAMINATION: CHEST CT WITHOUT CONTRAST CLINICAL HISTORY: Lung nodules Technique: Spiral CT acquisition of the chest from the thoracic inlet to the upper abdomen without contrast. MQ: [id number] CT Radiation dose: Integrated Dose-length product (DLP) for this visit = 227 mGy*cm CT Dose Reduction Employed: Automated exposure control (AEC) Comparison: No relevant prior studies RESULT: Limitations: None. Lines, tubes, and devices: None. Lung parenchyma and airways: No consolidation. No suspicious pulmonary nodule. The central airways are patent. Pleural space: No pleural effusion. No pleural thickening. Lower neck, lymph nodes, and mediastinum: The imaged thyroid gland is normal. No lymphadenopathy in the supraclavicular, axillary, mediastinal, or hilar regions. Heart, pericardium, and thoracic vessels: The thoracic aorta and main pulmonary artery are normal in caliber. The cardiac chambers are normal in size. Coronary artery atherosclerotic calcifications are noted, although the study is not optimized for coronary assessment. No pericardial effusion or thickening. Bones and soft tissues: No destructive bone lesion. Degenerative disease of the thoracic spine. Chest wall is unremarkable. Upper abdomen: No acute abnormality in the imaged upper abdomen. 6 mm left renal calculus. Multiple left peripelvic cysts. Localizer images: No additional findings. IMPRESSION: No suspicious pulmonary nodules. No thoracic lymphadenopathy. Licensed Occupational Therapist: PSCB Transcribe Date/Time: Jan 28 2025 1:22P Dictated by : CRISTO GARBER MD This examination was interpreted and the report reviewed and electronically signed by: CRISTO GARBER MD on Jan 28 2025 1:40PM EST [id number] Normal [facility] Hepatic function 2000 panelo n 01-20-2025 Albumin [Mass/Vol] 4.6 g/dL Normal 3.9-4.9 [facility] Comment on above: Order Comment: Speci men Type: BLOOD SPECIMEN Ordering Facility: [facility] Address: [address] [place] [address] Performed By: #### 2 276-4, 96938-5 #### [facility] CLIA [id number] [address] [place] [address] [place] ALP [Catalytic activity/Vol] 119 U/L High 38-113 [facility] Comment on above: Order Comment: Speci men Type: BLOOD SPECIMEN Ordering Facility: [facility] Address: [address] [place] [address] Performed By: #### 2 276-4, 78473-6 #### [facility] CLIA [id number] [address] [place] [address] [place] ALT [Catalytic activity/Vol] 21 U/L Normal 10-54 [facility] Comment on above: Order Comment: Speci men Type: BLOOD SPECIMEN Ordering Facility: [facility] Address: [address] [place] [address] Performed By: #### 2 276-4, 40209-4 #### [facility] CLIA [id number] [address] [place] [address] [place] AST [Catalytic activity/Vol] 23 U/L Normal 14-40 [facility] Comment on above: Order Comment: Speci men Type: BLOOD SPECIMEN Ordering Facility: [facility] Address: [address] [place] [address] Performed By: #### 2 276-4, 67698-9 #### [facility] CLIA [id number] [address] [place] [address] [place] Bilirubin [Mass/Vol] 0.6 mg/dL Normal 0.2-1.3 [facility] Comment on above: Order Comment: Speci men Type: BLOOD SPECIMEN Ordering Facility: [facility] Address: [address] [place] [address] Performed By: #### 2 276-4, 58577-4 #### [facility] CLIA [id number] [address] [place] [address] [place] Bilirubin.conjugated [Mass/Vol] 0.2 mg/dL Normal <0.3 [facility] Comment on above: Order Comment: Speci men Type: BLOOD SPECIMEN Ordering Facility: [facility] Address: [address] [place] [address] Performed By: #### 2 276-4, 79220-0 #### [facility] CLIA [id number] [address] [place] [address] [place] Protein [Mass/Vol] 7.3 g/dL Normal 6.3-8.0 [facility] Comment on above: Order Comment: Speci men Type: BLOOD SPECIMEN Ordering Facility: [facility] Address: [address] [place] [address] Performed By: #### 2 276-4, 74159-2 #### [facility] CLIA [id number] [address] [place] [address] [place] Abdomen/Pelvis without Conto n 01-15-2025 Abdomen/Pelvis without Cont [facility] Imaging Services [address] [place], [place] [address] Abdomen/Pelvis without Cont MR#: [id number] Acct: [id number] Name: RADHA MENG Rep #: [id number] : 1950 M 74 From: Holly Valle MD PCP: Dr. Rosita Capone, DO Status: REG CLI Study: Abdomen/Pelvis without Cont Date of Exam: 12/30 10/23 Exam# [id number] Ordering Dr: Harrison Lopez MD PROCEDURE: ABDOMEN/PELVIS WITHOUT CONT 01/15/2025 REASON FOR EXAM: GROSS HEMATURIA Colon cancer. TECHNIQUE: Procedure Code: CTABDPEL Modality: CT Procedure: ABDOMEN/PELVIS WITHOUT CONT Noncontrast technique limits evaluation of the abdominal and pelvic viscera. Coronal and Sagittal reconstruction series were provided. One or more dose reduction techniques were used (e.g., Automated exposure control, adjustment of the mA and/or kV according to patient size, use of iterative reconstruction technique). RADIATION DOSE SUMMARY: CTDlvol: 8.8 mGy DLP: 396 mGycm COMPARISON: Ultrasound November 2024 FINDINGS: Lung bases: Moderate emphysematous changes. ABDOMEN Liver: Negative. Biliary system: Negative. Negative for intrahepatic or extrahepatic ductal dilatation. Gallbladder: Contains stones. Negative for cholecystitis. Spleen: Negative. Pancreas: Negative. Adrenals: Negative. Kidneys: Bilateral parapelvic cysts. Nonobstructing kidney stones. Greater on the left. Bowel: Mild increased stool throughout the colon. Negative for small or large-bowel obstruction. Appendix: The appendix is not identified. There is no inflammatory process identified in the right lower quadrant to suggest appendicitis. Vasculature: Moderate atherosclerotic vascular calcifications of the abdominal aorta and its branches. Peritoneum / Retroperitoneum: Negative. PELVIS Lymph nodes: Negative for inguinal or iliac adenopathy. Bladder: Urinary bladder negative. Reproductive Organs: Prostate negative. Bones and Soft Tissues: age appropriate appearance off the lumbar spine hips and pelvis. CT/Abdomen/Pelvis without Cont IMPRESSION: Nonobstructing kidney stones. Parapelvic cysts. Negative for acute intra-abdominal or pelvic pathology. Reading Location: [id number] CC: Dr. Harrison Lopez MD; Dr. Rosita Capone DO Licensed Occupational Therapist: Signed Normal [facility] Kidney and Bladderon 025 Kidney and Bladder [facility] Imaging Services [address] [place] [address] Kidney and Bladder MR#: [id number] Acct: [id number] Name: RDAHA MENG Rep #: [id number] : 1950 M 74 From: Jonnathan abdalla MD PCP: Dr. Rosita Capone DO Status: REG CLI Study: Kidney and Bladder Date of Exam: 12/07/24 Exam# [id number] Ordering Dr: Rosita Capone DO PROCEDURE: KIDNEY AND BLADDER 12/07/2024 REASON FOR EXAM: COMPLETE ULTRASOUND OF KIDNEY; RIGHT EVAL COMPLEX R RENAL CYST SE TECHNIQUE: Procedure Code: USKI Modality: US Procedure: KIDNEY AND BLADDER COMPARISON: None FINDINGS: Kidneys: Normal renal sizes, parenchymal thicknesses, and echotextures. Calhoun: No evidence of hydronephrosis. Cysts or Masses: [...] calculus in the left kidney. Reading Location: [id number] CC: Dr. Rosita Capone DO Licensed Occupational Therapist: Signed [facility] CNOVSPon 09-28-2024 CNOVSP Visit (SP) Office (H EMAWS) -- RADHA MENG ([id number]) 1950 M Date Time Provider Department 09/28/24 [...] and hepatic panel, yearly CT CAP 2. [place] term CT chest to follow up on [...] RELIEF) 50 mcg/actuation nasal spray Use 1 Lincoln in each nostril once daily as needed. [...] 80 Temp (Src) 97.4 (Temporal) Ht 5' 9.5 (1.77m) Wt 163 lb 8 oz (74.2kg) SpO2 98% BMI 23.81 kg/(m2). GENERAL APPEARANCE: Well appearing, in no acute distress, alert and oriented x3, well-hydrated, well nourished. I spent a total of 60 minutes on the date of the service which included preparing to see the patient, [id number] patient care, completing clinical documentation, obtaining and/or [...] colon (HCC) [C18.4] Order(s):CT CHEST WO IVCON [1286197] Order #: [id number] FUTURE HEPATIC FUNCTION PNL [SQHFP] Order #: [id number] STANDING CARCINOEMBRYONIC ANTIGEN [SQCEA] Order #: [id number] STANDING Follow-up and Disposition History for Encounter Date Provider Department Center 09/28/2024 [id number] J[facility] [place] Prescriptions as of 09/28/2024 - lisinopril (ZESTRIL) 10 mg tablet Take 10 mg by mouth once daily. - tamsulosin (FLOMAX) 0.4 mg Take 0. (more content not included)... 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 Castillo was to send reports/results. Please advise on follow up appointment. Aundrea Mendosa LPN 09/15/2024 4:52 PM Signed Referral received was missing information. Additional records requested. MIKE Singleton Melanie, LPN 09/16/2024 11:29 AM Addendum Records received. Red chart given to PSS to schedule. This patient has been seen once by the COMMUNICATION LECTURER for MONA. This is a new diagnosis [...] RELIEF) 50 mcg/actuation nasal spray Use 1 Lincoln in each nostril once daily as needed. [...] Status:Closed by CHARLIE DOUGLAS on 09/16/24 Normal [facility] .Auto Diffon 08-31-2024 Basophil, Absolute 0.1 10 3/mcL Normal 0.0-0.3 [facility] Comment on above: Performed By: #### B MP, CBC, ADIFF, ANEU, GFR #### [address] [address] Basophils/100 WBC (Bld) 0.6 % Normal 0.0-2.5 [facility] Comment on above: Performed By: #### B MP, CBC, ADIFF, ANEU, GFR #### [address] [address] Eosinophil, Absolute 0.8 10 3/mcL High 0.0-0.7 [facility] Comment on above: Performed By: #### B MP, CBC, ADIFF, ANEU, GFR #### [address] [address] Eosinophils/100 WBC (Bld) 8.1 % High 0.0-6.0 [facility] Comment on above: Performed By: #### B MP, CBC, ADIFF, ANEU, GFR #### [address] [address] Lymphocyte, Absolute 1.5 10 3/mcL Normal 0.9-4.3 [facility] Comment on above: Performed By: #### B MP, CBC, ADIFF, ANEU, GFR #### [address] [address] Lymphocytes/100 WBC (Bld) 14.8 % Low 20.0-40.0 [facility] Comment on above: Performed By: #### B MP, CBC, ADIFF, ANEU, GFR #### [address] [address] Monocyte, Absolute 1.2 10 3/mcL Normal 0.1-1.4 [facility] Comment on above: Performed By: #### B MP, CBC, ADIFF, ANEU, GFR #### [address] [address] Monocytes/100 WBC (Bld) 11.5 % Normal 2.0-13.0 [facility] Comment on above: Performed By: #### B MP, CBC, ADIFF, ANEU, GFR #### [address] [address] Neutrophils/100 WBC (Bld) 65.0 % Normal 50.0-75.0 [facility] Comment on above: Performed By: #### B MP, CBC, ADIFF, ANEU, GFR #### [address] [address] .GFRon 08-31-2024 Estimated Glomerular Filtration Rate 89 ml/min/1.73sqm Normal [facility] Comment on above: Result Comment: Stages [...] B MP, CBC, ADIFF, ANEU, GFR #### [address] [address] .NEUABSon 08-31-2024 Neutrophil, Absolute 6.5 10 3/mcL Normal 2.3-8.1 [facility] Comment on above: Performed By: #### B MP, CBC, ADIFF, ANEU, GFR #### [address] [address] BMPon 08-31-2024 BUN/Creatinine Ratio 14.3 ratio Normal 10.0-22.0 [facility] Comment on above: Performed By: #### B MP, CBC, ADIFF, ANEU, GFR #### [place] [id number] Calcium [Mass/Vol] 9.3 mg/dL Normal 8.7-10.4 [facility] Comment on above: Performed By: #### B MP, CBC, ADIFF, ANEU, GFR #### [address] [address] Chloride [Moles/Vol] 101 mmol/L Normal 98-110 [facility] Comment on above: Performed By: #### B MP, CBC, ADIFF, ANEU, GFR #### [address] [address] CO2 [Moles/Vol] 31 mmol/L Normal 22-32 [facility] Comment on above: Performed By: #### B MP, CBC, ADIFF, ANEU, GFR #### [address] [address] Creatinine [Mass/Vol] 0.91 mg/dL Normal 0.60-1.40 [facility] Comment on above: Result Comment: Test ing performed on BIMA analyzer using enzymatic creatinine methodology. Performed By: #### B MP, CBC, ADIFF, ANEU, GFR #### [address] [address] Electrolyte Balance 7.0 mEq/L Normal 4.0-15.0 [facility] Comment on above: Performed By: #### B MP, CBC, ADIFF, ANEU, GFR #### [address] [address] Glucose [Mass/Vol] 88 mg/dL Normal 82-115 [facility] Comment on above: Performed By: #### B MP, CBC, ADIFF, ANEU, GFR #### [place] [phone] Potassium [Moles/Vol] 4.7 mmol/L Normal 3.5-5.0 [facility] Comment on above: Performed By: #### B MP, CBC, ADIFF, ANEU, GFR #### [place] [phone] Sodium [Moles/Vol] 139 mmol/L Normal 136-145 [facility] Comment on above: Performed By: #### B MP, CBC, ADIFF, ANEU, GFR #### [place] [phone] Urea nitrogen [Mass/Vol] 13.0 mg/dL Normal 8.0-22.0 [facility] Comment on above: Performed By: #### B MP, CBC, ADIFF, ANEU, GFR #### [place] [id number] CBCon 08-31-2024 Erythrocyte distribution width (RBC) [Ratio] 15.5 % Normal 11.5-15.5 [facility] Comment on above: Performed By: #### B MP, CBC, ADIFF, ANEU, GFR #### [place] [address] Hematocrit (Bld) [Volume fraction] 44.4 % Normal 40.0-52.0 [facility] Comment on above: Performed By: #### B MP, CBC, ADIFF, ANEU, GFR #### [place] [id number] Hgb 14.8 G/dL Normal 13.0-17.5 [facility] Comment on above: Performed By: #### B MP, CBC, ADIFF, ANEU, GFR #### [place] [phone] MCH (RBC) [Entitic mass] 27.3 pg Normal 27.0-33.0 [facility] Comment on above: Performed By: #### B MP, CBC, ADIFF, ANEU, GFR #### [place] [id number] MCHC 33.3 G/dL Normal 32.0-36.0 [facility] Comment on above: Performed By: #### B MP, CBC, ADIFF, ANEU, GFR #### [place] [address] MCV (RBC) [Entitic vol] 82.2 fL Normal 81.0-100.0 [facility] Comment on above: Performed By: #### B MP, CBC, ADIFF, ANEU, GFR #### [place] [address] Platelet 317 10 3/mcL Normal 150-450 [facility] Comment on above: Performed By: #### B MP, CBC, ADIFF, ANEU, GFR #### [place] [address] Platelet mean volume (Bld) [Entitic vol] 7.1 fL Normal 6.4-10.5 [facility] Comment on above: Performed By: #### B MP, CBC, ADIFF, ANEU, GFR #### [place] [address] RBC 5.40 10 6/mcL Normal 4.50-6.00 [facility] Comment on above: Performed By: #### B MP, CBC, ADIFF, ANEU, GFR #### [place] [address] WBC 10.0 10 3/mcL Normal 4.5-10.8 [facility] Comment on above: Performed By: #### B MP, CBC, ADIFF, ANEU, GFR #### [place] [address] LABORATORYOrdered By: SYSTEM SYSTEM on 08-31-2024 Basophils (Bld) [#/Vol] 0.1 103/mcL Normal 0.0 - 0.3 10^3/mcL AH Workflow SS Basophils/100 WBC (Bld) 0.6 % Normal 0.0 - 2.5 % AH Workflow SS Calcium [Mass/Vol] 9.3 mg/dL Normal 8.7 - 10. 4 mg/dL AH ADM SS Chloride [Moles/Vol] 101 mmol/L Normal 98 - 11 0 mEq/L AH ADM SS CO2 [Moles/Vol] 31 mmol/L Normal 22 - 32 mEq/L ADM SS Creatinine [Mass/Vol] 0.91 mg/dL Normal 0.60 - 1.40 mg/dL ADM SS Comment on above: Interpretive Data: T esting performed on BIMA analyzer using enzymatic creatinine methodology. Electrolyte Balance 7.0 mEq/L Normal 4.0 - 15 .0 mEq/L ADM SS Eosinophils (Bld) [#/Vol] 0.8 103/mcL High 0.0 - 0.7 10^3/mcL Workflow SS Eosinophils/100 WBC (Bld) 8.1 % High 0.0 - 6.0 % Workflow SS Erythrocyte distribution width (RBC) [Ratio] 15.5 % Normal 11.5 - 15.5 % Workflow SS Estimated Glomerular Filtration Rate 89 [...] 44.4 % Normal 40.0 - 52.0 % Workflow SS Hemoglobin (Bld) [Mass/Vol] 14.8 G/dL Normal 13.0 - 17.5 G/dL Workflow SS Lymphocytes (Bld) [#/Vol] 1.5 103/mcL Normal 0.9 - 4.3 10^3/mcL Workflow SS Lymphocytes/100 WBC (Bld) 14.8 % Low 20.0 - 40.0 % Workflow SS MCH (RBC) [Entitic mass] 27.3 pg Normal 27.0 - 33.0 pg Workflow SS MCHC 33.3 G/dL Normal 32.0 - 36.0 G/dL Workflow SS MCV (RBC) [Entitic vol] 82.2 fL Normal 81.0 - 100.0 fL AH Workflow SS Monocytes (Bld) [#/Vol] 1.2 103/mcL Normal 0.1 - 1.4 10^3/mcL AH Workflow SS Monocytes/100 WBC (Bld) 11.5 % Normal 2.0 - 13.0 % AH Workflow SS Neutrophils (Bld) [#/Vol] 6.5 103/mcL Normal 2.3 - 8.1 10^3/mcL AH Workflow SS Neutrophils/100 WBC (Bld) 65.0 % Normal 50.0 - 75.0 % AH Workflow SS Platelet mean volume (Bld) [Entitic vol] 7.1 fL Normal 6.4 - 10.5 fL AH Workflow SS Platelets (Bld) [#/Vol] 317 103/mcL Normal 150 - 450 10^3/mcL AH Workflow SS Potassium [Moles/Vol] 4.7 mmol/L Normal 3.5 - 5.0 mEq/L AH ADM SS RBC (Bld) [#/Vol] 5.40 106/mcL Normal 4.50 - 6.00 10^6/mcL AH Workflow SS Sodium [Moles/Vol] 139 mmol/L Normal 136 - 145 mEq/L ADM SS Urea nitrogen [Mass/Vol] 13.0 mg/dL Normal 8.0 - 22.0 mg/dL ADM SS Urea nitrogen/Creatinine [Mass ratio] 14.3 ratio Normal 10.0 - 22.0 ratio ADM SS WBC (Bld) [#/Vol] 10.0 103/mcL Normal 4.5 - 10.8 10^3/mcL Workflow SS .Auto Diffon 08-30-2024 Basophil, Absolute 0.1 10 3/mcL Normal 0.0-0.3 [facility] Comment on above: Performed By: #### B MP, CBC, ADIFF, ANEU, GFR #### [address] [address] Basophils/100 WBC (Bld) 0.5 % Normal 0.0-2.5 [facility] Comment on above: Performed By: #### B MP, CBC, ADIFF, ANEU, GFR #### [address] [address] Eosinophil, Absolute 0.5 10 3/mcL Normal 0.0-0.7 [facility] Comment on above: Performed By: #### B MP, CBC, ADIFF, ANEU, GFR #### [address] [address] Eosinophils/100 WBC (Bld) 4.6 % Normal 0.0-6.0 [facility] Comment on above: Performed By: #### B MP, CBC, ADIFF, ANEU, GFR #### [address] [address] Lymphocyte, Absolute 1.3 10 3/mcL Normal 0.9-4.3 [facility] Comment on above: Performed By: #### B MP, CBC, ADIFF, ANEU, GFR #### [address] [address] Lymphocytes/100 WBC (Bld) 11.8 % Low 20.0-40.0 [facility] Comment on above: Performed By: #### B MP, CBC, ADIFF, ANEU, GFR #### [address] [address] Monocyte, Absolute 1.3 10 3/mcL Normal 0.1-1.4 [facility] Comment on above: Performed By: #### B MP, CBC, ADIFF, ANEU, GFR #### [address] [address] Monocytes/100 WBC (Bld) 11.3 % Normal 2.0-13.0 [facility] Comment on above: Performed By: #### B MP, CBC, ADIFF, ANEU, GFR #### [address] [address] Neutrophils/100 WBC (Bld) 71.8 % Normal 50.0-75.0 [facility] Comment on above: Performed By: #### B MP, CBC, ADIFF, ANEU, GFR #### [address] [address] .GFRon 08-30-2024 Estimated Glomerular Filtration Rate 91 ml/min/1.73sqm Normal [facility] Comment on above: Result Comment: Stages [...] B MP, CBC, ADIFF, ANEU, GFR #### [place] [address] .Morphon 08-30-2024 Platelet Estimate Normal Normal [facility] Comment on above: Performed By: #### B MP, CBC, ADIFF, ANEU, GFR #### [place] [address] RBC morphology finding Nom (Bld) Normal Normal [facility] Comment on above: Performed By: #### B MP, CBC, ADIFF, ANEU, GFR #### [place] [address] .NEUABSon 08-30-2024 Neutrophil, Absolute 8.2 10 3/mcL High 2.3-8.1 [facility] Comment on above: Performed By: #### B MP, CBC, ADIFF, ANEU, GFR #### [place] [address] BMPon 08-30-2024 BUN/Creatinine Ratio 19.5 ratio Normal 10.0-22.0 [facility] Comment on above: Performed By: #### B MP, CBC, ADIFF, ANEU, GFR #### [place] [address] Calcium [Mass/Vol] 9.5 mg/dL Normal 8.7-10.4 [facility] Comment on above: Performed By: #### B MP, CBC, ADIFF, ANEU, GFR #### [place] [id number] Chloride [Moles/Vol] 102 mmol/L Normal 98-110 [facility] Comment on above: Performed By: #### B MP, CBC, ADIFF, ANEU, GFR #### [address] [address] CO2 [Moles/Vol] 28 mmol/L Normal 22-32 [facility] Comment on above: Performed By: #### B MP, CBC, ADIFF, ANEU, GFR #### [address] [address] Creatinine [Mass/Vol] 0.87 mg/dL Normal 0.60-1.40 [facility] Comment on above: Result Comment: Test ing performed on BIMA analyzer using enzymatic creatinine methodology. Performed By: #### B MP, CBC, ADIFF, ANEU, GFR #### [address] [address] Electrolyte Balance 7.0 mEq/L Normal 4.0-15.0 [facility] Comment on above: Performed By: #### B MP, CBC, ADIFF, ANEU, GFR #### [address] [address] Glucose [Mass/Vol] 105 mg/dL Normal 82-115 [facility] Comment on above: Performed By: #### B MP, CBC, ADIFF, ANEU, GFR #### [address] [address] Potassium [Moles/Vol] 3.8 mmol/L Normal 3.5-5.0 [facility] Comment on above: Performed By: #### B MP, CBC, ADIFF, ANEU, GFR #### [address] [address] Sodium [Moles/Vol] 137 mmol/L Normal 136-145 [facility] Comment on above: Performed By: #### B MP, CBC, ADIFF, ANEU, GFR #### [address] [address] Urea nitrogen [Mass/Vol] 17.0 mg/dL Normal 8.0-22.0 [facility] Comment on above: Performed By: #### B MP, CBC, ADIFF, ANEU, GFR #### [place] [id number] CBCon 08-30-2024 Erythrocyte distribution width (RBC) [Ratio] 15.9 % High 11.5-15.5 [facility] Comment on above: Performed By: #### B MP, CBC, ADIFF, ANEU, GFR #### [place] [address] Hematocrit (Bld) [Volume fraction] 43.8 % Normal 40.0-52.0 [facility] Comment on above: Performed By: #### B MP, CBC, ADIFF, ANEU, GFR #### [place] [address] Hgb 14.6 G/dL Normal 13.0-17.5 [facility] Comment on above: Performed By: #### B MP, CBC, ADIFF, ANEU, GFR #### [place] [address] MCH (RBC) [Entitic mass] 27.4 pg Normal 27.0-33.0 [facility] Comment on above: Performed By: #### B MP, CBC, ADIFF, ANEU, GFR #### [place] [address] MCHC 33.4 G/dL Normal 32.0-36.0 [facility] Comment on above: Performed By: #### B MP, CBC, ADIFF, ANEU, GFR #### [place] [address] MCV (RBC) [Entitic vol] 82.2 fL Normal 81.0-100.0 [facility] Comment on above: Performed By: #### B MP, CBC, ADIFF, ANEU, GFR #### [place] [address] Platelet 317 10 3/mcL Normal 150-450 [facility] Comment on above: Performed By: #### B MP, CBC, ADIFF, ANEU, GFR #### [place] [address] Platelet mean volume (Bld) [Entitic vol] 7.1 fL Normal 6.4-10.5 [facility] Comment on above: Performed By: #### B MP, CBC, ADIFF, ANEU, GFR #### [address] [address] RBC 5.33 10 6/mcL Normal 4.50-6.00 [facility] Comment on above: Performed By: #### B MP, CBC, ADIFF, ANEU, GFR #### [address] [address] WBC 11.4 10 3/mcL High 4.5-10.8 [facility] Comment on above: Performed By: #### B MP, CBC, ADIFF, ANEU, GFR #### [address] [address] LABORATORYOrdered By: Alba Mendosa on 08-30-2024 Glucose [Mass/Vol] 158 mg/dL High 82 - 115 mg/dL [facility] LABORATORYOrdered By: SYSTEM SYSTEM on 08-30-2024 Basophils [...] above: Interpretive Data: T esting performed on BIMA analyzer using enzymatic creatinine methodology. Electrolyte Balance 7.0 mEq/L Normal 4.0 - 15 .0 mEq/L ADM SS Eosinophils (Bld) [#/Vol] 0.5 103/mcL Normal 0.0 - 0.7 10^3/mcL AH Workflow SS Eosinophils/100 WBC (Bld) 4.6 % Normal 0.0 - 6.0 % Workflow SS Erythrocyte distribution width (RBC) [Ratio] 15.9 % High 11.5 - 15.5 % AH Workflow SS Estimated Glomerular Filtration Rate 91 [...] 105 mg/dL Normal 82 - 115 mg/dL ADM SS Hematocrit (Bld) [Volume fraction] 43.8 [...] 3.8 mmol/L Normal 3.5 - 5.0 mEq/L AH ADM SS RBC (Bld) [#/Vol] 5.33 106/mcL Normal 4.50 - 6.00 10^6/mcL AH Workflow SS RBC morphology finding Nom (Bld) Normal *NA* (08/30/24 6:41 AM) Invalid Interpretation Code Workflow SS Sodium [Moles/Vol] 137 mmol/L Normal 136 - 145 mEq/L ADM SS Urea nitrogen [Mass/Vol] 17.0 mg/dL Normal 8.0 - 22.0 mg/dL ADM SS Urea nitrogen/Creatinine [Mass ratio] 19.5 ratio Normal 10.0 - 22.0 ratio AH ADM SS WBC (Bld) [#/Vol] 11.4 103/mcL High 4.5 - 10.8 10^3/mcL Workflow SS .Auto Diffon 08-29-2024 Basophil, Absolute 0.0 10 3/mcL Normal 0.0-0.3 [facility] Comment on above: Performed By: #### B MP, CBC, ADIFF, ANEU, GFR #### [address] [address] Basophils/100 WBC (Bld) 0.1 % Normal 0.0-2.5 [facility] Comment on above: Performed By: #### B MP, CBC, ADIFF, ANEU, GFR #### [address] [address] Eosinophil, Absolute 0.0 10 3/mcL Normal 0.0-0.7 [facility] Comment on above: Performed By: #### B MP, CBC, ADIFF, ANEU, GFR #### [address] [address] Eosinophils/100 WBC (Bld) 0.2 % Normal 0.0-6.0 [facility] Comment on above: Performed By: #### B MP, CBC, ADIFF, ANEU, GFR #### [address] [address] Lymphocyte, Absolute 0.7 10 3/mcL Low 0.9-4.3 [facility] Comment on above: Performed By: #### B MP, CBC, ADIFF, ANEU, GFR #### [address] [address] Lymphocytes/100 WBC (Bld) 5.7 % Low 20.0-40.0 [facility] Comment on above: Performed By: #### B MP, CBC, ADIFF, ANEU, GFR #### [address] [address] Monocyte, Absolute 1.0 10 3/mcL Normal 0.1-1.4 [facility] Comment on above: Performed By: #### B MP, CBC, ADIFF, ANEU, GFR #### [address] [address] Monocytes/100 WBC (Bld) 8.3 % Normal 2.0-13.0 [facility] Comment on above: Performed By: #### B MP, CBC, ADIFF, ANEU, GFR #### [address] [address] Neutrophils/100 WBC (Bld) 85.7 % High 50.0-75.0 [facility] Comment on above: Performed By: #### B MP, CBC, ADIFF, ANEU, GFR #### [address] [address] .GFRon 08-29-2024 Estimated Glomerular Filtration Rate 91 ml/min/1.73sqm Normal [facility] Comment on above: Result Comment: Stages [...] B MP, CBC, ADIFF, ANEU, GFR #### [address] [address] .NEUABSon 08-29-2024 Neutrophil, Absolute 10.6 10 3/mcL High 2.3-8.1 [facility] Comment on above: Performed By: #### B MP, CBC, ADIFF, ANEU, GFR #### [address] [address] BMPon 08-29-2024 BUN/Creatinine Ratio 14.9 ratio Normal 10.0-22.0 [facility] Comment on above: Performed By: #### B MP, CBC, ADIFF, ANEU, GFR #### [place] [id number] Calcium [Mass/Vol] 10.1 mg/dL Normal 8.7-10.4 [facility] Comment on above: Performed By: #### B MP, CBC, ADIFF, ANEU, GFR #### [place] [id number] Chloride [Moles/Vol] 103 mmol/L Normal 98-110 [facility] Comment on above: Performed By: #### B MP, CBC, ADIFF, ANEU, GFR #### [place] [id number] CO2 [Moles/Vol] 24 mmol/L Normal 22-32 [facility] Comment on above: Performed By: #### B MP, CBC, ADIFF, ANEU, GFR #### [place] [id number] Creatinine [Mass/Vol] 0.87 mg/dL Normal 0.60-1.40 [facility] Comment on above: Result Comment: Test ing performed on BIM[employer] analyzer using enzymatic creatinine methodology. Performed By: #### B MP, CBC, ADIFF, ANEU, GFR #### [place] [id number] Electrolyte Balance 11.0 mEq/L Normal 4.0-15.0 [facility] [facility] Comment on above: Performed By: #### B MP, CBC, ADIFF, ANEU, GFR #### [place] [address] Glucose [Mass/Vol] 117 mg/dL High 82-115 [facility] Comment on above: Performed By: #### B MP, CBC, ADIFF, ANEU, GFR #### [place] [phone] Potassium [Moles/Vol] 4.2 mmol/L Normal 3.5-5.0 [facility] Comment on above: Performed By: #### B MP, CBC, ADIFF, ANEU, GFR #### [place] [phone] Sodium [Moles/Vol] 138 mmol/L Normal 136-145 [facility] Comment on above: Performed By: #### B MP, CBC, ADIFF, ANEU, GFR #### [place] [address] Urea nitrogen [Mass/Vol] 13.0 mg/dL Normal 8.0-22.0 [facility] Comment on above: Performed By: #### B MP, CBC, ADIFF, ANEU, GFR #### [place] [id number] CBCon 08-29-2024 Erythrocyte distribution width (RBC) [Ratio] 15.9 % High 11.5-15.5 [facility] Comment on above: Performed By: #### B MP, CBC, ADIFF, ANEU, GFR #### [place] [address] Hematocrit (Bld) [Volume fraction] 45.7 % Normal 40.0-52.0 [facility] Comment on above: Performed By: #### B MP, CBC, ADIFF, ANEU, GFR #### [place] [phone] Hgb 15.1 G/dL Normal 13.0-17.5 [facility] Comment on above: Performed By: #### B MP, CBC, ADIFF, ANEU, GFR #### [address] [address] MCH (RBC) [Entitic mass] 27.7 pg Normal 27.0-33.0 [facility] Comment on above: Performed By: #### B MP, CBC, ADIFF, ANEU, GFR #### [address] [address] MCHC 33.1 G/dL Normal 32.0-36.0 [facility] Comment on above: Performed By: #### B MP, CBC, ADIFF, ANEU, GFR #### [place] [address] MCV (RBC) [Entitic vol] 83.6 fL Normal 81.0-100.0 [facility] Comment on above: Performed By: #### B MP, CBC, ADIFF, ANEU, GFR #### [place] [address] Platelet 284 10 3/mcL Normal 150-450 [facility] Comment on above: Performed By: #### B MP, CBC, ADIFF, ANEU, GFR #### [place] [address] Platelet mean volume (Bld) [Entitic vol] 7.6 fL Normal 6.4-10.5 [facility] Comment on above: Performed By: #### B MP, CBC, ADIFF, ANEU, GFR #### [place] [phone] RBC 5.47 10 6/mcL Normal 4.50-6.00 [facility] Comment on above: Performed By: #### B MP, CBC, ADIFF, ANEU, GFR #### [place] [address] WBC 12.4 10 3/mcL High 4.5-10.8 [facility] Comment on above: Performed By: #### B MP, CBC, ADIFF, ANEU, GFR #### [place] [address] LABORATORYOrdered By: SYSTEM SYSTEM on 08-29-2024 Basophils (Bld) [#/Vol] 0.0 103/mcL Normal 0.0 - 0.3 10^3/mcL AH Workflow SS Basophils/100 WBC (Bld) 0.1 % Normal 0.0 - 2.5 % Workflow SS Calcium [Mass/Vol] 10.1 mg/dL Normal 8.7 - 10. 4 mg/dL ADM SS Chloride [Moles/Vol] 103 mmol/L Normal 98 - 11 0 mEq/L ADM SS CO2 [Moles/Vol] 24 mmol/L Normal 22 - 32 mEq/L ADM SS Creatinine [Mass/Vol] 0.87 mg/dL Normal 0.60 - 1.40 mg/dL ADM SS Comment on above: Interpretive Data: T esting performed on BIMA analyzer using enzymatic creatinine methodology. Electrolyte Balance [...] 0.7 103/mcL Low 0.9 - 4.3 10^3/mcL AH Workflow SS Lymphocytes/100 WBC (Bld) 5.7 % Low 20.0 - 40.0 % AH Workflow SS MCH (RBC) [Entitic mass] 27.7 pg Normal 27.0 - 33.0 pg AH Workflow SS MCHC 33.1 G/dL Normal 32.0 [...] 4.2 mmol/L Normal 3.5 - 5.0 mEq/L AH ADM SS RBC (Bld) [#/Vol] 5.47 106/mcL [...] 12.4 103/mcL High 4.5 - 10.8 10^3/mcL AH Workflow SS Final Surgical Pathology Rep daniel 08-28-2024 Final Surgical Pathology Report . Pathology Reports Accession: Collected Date/Time: Received Date/Time: Pathologist: [id number] 08/26/2024 10:07 EDT 08/26/2024 10:58 MARCT BLU TRAVIS MD Final Surgical Pathology Report [...] COMMENT(S): MMR testing performed by outside lab, [facility], their number [id number]. Pending at the time of that report FITNESS MANAGER TUMOR BLOCK(S): A5 CLINICAL INFORMATION: Procedure: LAPAROSCOPIC RIGHT COLECTOMY Preoperative diagnosis: COLON CANCER Postoperative diagnosis: COLON CANCER SPECIMEN: A RIGHT COLON AND PROXIMAL TRANSVERSE COLON Pathology Reports Accession: Collected Date/Time: Received Date/Time: Pathologist: [id number] 08/26/2024 10:07 EDT 08/26/2024 10:58 EDT BLU TRAVIS MD GROSS DESCRIPTION: All parts labelled with patient name and [id number] Received in formalin labelled right colon and proximal transverse colon is a right hemicolectomy with terminal ileum [...] 5 possible lymph nodes Maren Silva, Pathologists' Sales Enablement Analyst (ASCP) Performed by MAREN SILVA MICROSCOPIC DESCRIPTION: The microscopic examination is performed, except in the case of Gross Only. Verified by Pathology Report verified by [facility] (more content not included)... Normal [facility] Final Surgical Pathology Report Event Display: SP Gross All parts labelled with patient name and [id number] Received in formalin labelled right colon and proximal transverse colon is a right hemicolectomy with terminal ileum [...] 5 possible lymph nodes Maren Silva, Pathologists' Sales Enablement Analyst (ASCP) Performed by BLU BLANK MD:VERIFY; Authored Date: [id number] [facility] Final Surgical Pathology Report Event Display: SP Signature Pathology Report verified by [facility] BLU TRAVIS Sign out Date: 08/28/2024 13:55 Performing Lab: [facility], [address] [place] [address] Pathology Dept BLU TRAVIS MD:VERIFY; Authored Date: [facility] Final Surgical Pathology Report Event Display: SP Specimen ARIGHT COLON AND PROXIMAL TRANSVERSE COLON BLU TRAVIS MD:VERIFY; Authored Date: [facility] Final Surgical Pathology Report Event Display: SP [...] COMMENT(S): MMR testing performed by outside lab, [facility], their number [id number]. Pending at the time of that report FITNESS MANAGER TUMOR BLOCK(S): A5 BLU TRAVIS MD:VERIFY; Authored Date: [id number] [facility] Final Surgical Pathology Report Event Display: SP Disclaimer If ancillary studies were utilized, the following Laboratory Developed Test (LDT) disclaimer will apply: Under CLIA requirements, [facility] is qualified to perform high complexity testing. For all ancillary stains, positive and negative controls stain appropriately. Performance characteristics of immunohistochemical and chromogenic in-situ hybridization tests have been determined by [facility]. These tests are used for clinical purposes, They should not be regarded as investigational or for research. BLU TRAVIS MD:VERIFY; Authored Date: [facility] Final Surgical Pathology Report Event Display: SP Micro The microscopic examination is performed, except in the case of Gross Only. BLU TRAVIS MD:VERIFY; Authored Date: [id number] [facility] .Auto Diffon 08-27-2024 Basophil, Absolute 0.0 10 3/mcL Normal 0.0-0.3 [facility] Comment on above: Performed By: #### B MP, CBC, ADIFF, ANEU, GFR #### [address] [address] Basophils/100 WBC (Bld) 0.1 % Normal 0.0-2.5 [facility] Comment on above: Performed By: #### B MP, CBC, ADIFF, ANEU, GFR #### [address] [address] Eosinophil, Absolute 0.0 10 3/mcL Normal 0.0-0.7 [facility] Comment on above: Performed By: #### B MP, CBC, ADIFF, ANEU, GFR #### [address] [address] Eosinophils/100 WBC (Bld) 0.1 % Normal 0.0-6.0 [facility] Comment on above: Performed By: #### B MP, CBC, ADIFF, ANEU, GFR #### [address] [address] Lymphocyte, Absolute 1.4 10 3/mcL Normal 0.9-4.3 [facility] Comment on above: Performed By: #### B MP, CBC, ADIFF, ANEU, GFR #### [address] [address] Lymphocytes/100 WBC (Bld) 14.2 % Low 20.0-40.0 [facility] Comment on above: Performed By: #### B MP, CBC, ADIFF, ANEU, GFR #### [address] [address] Monocyte, Absolute 1.3 10 3/mcL Normal 0.1-1.4 [facility] Comment on above: Performed By: #### B MP, CBC, ADIFF, ANEU, GFR #### [address] [address] Monocytes/100 WBC (Bld) 12.8 % Normal 2.0-13.0 [facility] Comment on above: Performed By: #### B MP, CBC, ADIFF, ANEU, GFR #### [address] [address] Neutrophils/100 WBC (Bld) 72.8 % Normal 50.0-75.0 [facility] Comment on above: Performed By: #### B MP, CBC, ADIFF, ANEU, GFR #### [address] [address] .GFRon 08-27-2024 Estimated Glomerular Filtration Rate 80 ml/min/1.73sqm Normal [facility] Comment on above: Result Comment: Stages [...] B MP, CBC, ADIFF, ANEU, GFR #### [address] [address] .Morphon 08-27-2024 Anisocytosis Ql (Bld) 1+ Normal [facility] Comment on above: Performed By: #### B MP, CBC, ADIFF, ANEU, GFR #### [place] [address] Platelet Estimate Normal Normal [facility] Comment on above: Performed By: #### B MP, CBC, ADIFF, ANEU, GFR #### [place] [address] .NEUABSon 08-27-2024 Neutrophil, Absolute 7.3 10 3/mcL Normal 2.3-8.1 [facility] Comment on above: Performed By: #### B MP, CBC, ADIFF, ANEU, GFR #### [place] [address] BMPon 08-27-2024 BUN/Creatinine Ratio 13.1 ratio Normal 10.0-22.0 [facility] Comment on above: Performed By: #### B MP, CBC, ADIFF, ANEU, GFR #### [place] [phone] Calcium [Mass/Vol] 9.9 mg/dL Normal 8.7-10.4 [facility] Comment on above: Performed By: #### B MP, CBC, ADIFF, ANEU, GFR #### [place] [address] Chloride [Moles/Vol] 105 mmol/L Normal 98-110 [facility] Comment on above: Performed By: #### B MP, CBC, ADIFF, ANEU, GFR #### [place] [address] CO2 [Moles/Vol] 26 mmol/L Normal 22-32 [facility] Comment on above: Performed By: #### B MP, CBC, ADIFF, ANEU, GFR #### [place] [phone] Creatinine [Mass/Vol] 0.99 mg/dL Normal 0.60-1.40 [facility] Comment on above: Result Comment: Test ing performed on BIMA analyzer using enzymatic creatinine methodology. Performed By: #### B MP, CBC, ADIFF, ANEU, GFR #### [address] [address] Electrolyte Balance 8.0 mEq/L Normal 4.0-15.0 [facility] Comment on above: Performed By: #### B MP, CBC, ADIFF, ANEU, GFR #### [place] [phone] Glucose [Mass/Vol] 114 mg/dL Normal 82-115 [facility] Comment on above: Performed By: #### B MP, CBC, ADIFF, ANEU, GFR #### [place] [address] Potassium [Moles/Vol] 3.9 mmol/L Normal 3.5-5.0 [facility] Comment on above: Performed By: #### B MP, CBC, ADIFF, ANEU, GFR #### [place] [phone] Sodium [Moles/Vol] 139 mmol/L Normal 136-145 [facility] Comment on above: Performed By: #### B MP, CBC, ADIFF, ANEU, GFR #### [place] [phone] Urea nitrogen [Mass/Vol] 13.0 mg/dL Normal 8.0-22.0 [facility] Comment on above: Performed By: #### B MP, CBC, ADIFF, ANEU, GFR #### [address] [address] CBCon 08-27-2024 Erythrocyte distribution width (RBC) [Ratio] 17.1 % High 11.5-15.5 [facility] Comment on above: Performed By: #### B MP, CBC, ADIFF, ANEU, GFR #### [place] [address] Hematocrit (Bld) [Volume fraction] 40.7 % Normal 40.0-52.0 [facility] Comment on above: Performed By: #### B MP, CBC, ADIFF, ANEU, GFR #### [place] [address] Hgb 13.9 G/dL Normal 13.0-17.5 [facility] Comment on above: Performed By: #### B MP, CBC, ADIFF, ANEU, GFR #### [place] [address] MCH (RBC) [Entitic mass] 28.1 pg Normal 27.0-33.0 [facility] Comment on above: Performed By: #### B MP, CBC, ADIFF, ANEU, GFR #### [place] [address] MCHC 34.1 G/dL Normal 32.0-36.0 [facility] Comment on above: Performed By: #### B MP, CBC, ADIFF, ANEU, GFR #### [place] [address] MCV (RBC) [Entitic vol] 82.5 fL Normal 81.0-100.0 [facility] Comment on above: Performed By: #### B MP, CBC, ADIFF, ANEU, GFR #### [place] [address] Platelet 316 10 3/mcL Normal 150-450 [facility] Comment on above: Performed By: #### B MP, CBC, ADIFF, ANEU, GFR #### [place] [address] Platelet mean volume (Bld) [Entitic vol] 6.8 fL Normal 6.4-10.5 [facility] Comment on above: Performed By: #### B MP, CBC, ADIFF, ANEU, GFR #### [place] [address] RBC 4.94 10 6/mcL Normal 4.50-6.00 [facility] Comment on above: Performed By: #### B MP, CBC, ADIFF, ANEU, GFR #### [place] [address] WBC 10.0 10 3/mcL Normal 4.5-10.8 [facility] Comment on above: Performed By: #### B MP, CBC, ADIFF, ANEU, GFR #### [place] [address] LABORATORYOrdered By: SYSTEM SYSTEM on 08-27-2024 Anisocytosis Ql (Bld) 1+ *NA* (08/27/24 5:18 AM) Invalid Interpretation Code AH Workflow SS Platelets LM Ql (Bld) Normal *NA* (08/27/24 5:18 AM) Invalid Interpretation Code AH Workflow SS HHon 08-26-2024 Hematocrit (Bld) [Volume fraction] 40.9 % Normal 40.0-52.0 [facility] Comment on above: Performed By: #### H H #### [place] [address] Hgb 13.6 G/dL Normal 13.0-17.5 [facility] Comment on above: Performed By: #### H H #### [place] [address] LABORATORYOrdered By: Millie Lester on 08-26-2024 Blood Glucose Testing Reason Routine (08/26/24 5:41 AM) [facility] Glucose [Mass/Vol] 126 mg/dL High 82 - 115 mg/dL [facility] US ANESTHESIA BLOCKon 2024 US ANESTHESIA BLOCK ORIGINAL Images acquired, not reported on this accession number. Normal [facility] NM MYOCARDIAL SPECT STRESS/R ESTon 08-21-2024 [...] Interpreted By: Dillan Puentes Preliminary Report By: Dillan Puentes Electronically Signed By: Dillan Puentes Dictated Date: 08/21/2024 9:27:24 AM Prelim Date: 08/21/2024 9:27:24 AM Sign Date: 08/21/2024 9:31:17 AM Ordering Provider:Rosita Capone [facility] .GFRon 08-05-2024 Estimated Glomerular Filtration Rate 75 ml/min/1.73sqm [facility] Comment on above: Result Comment: [...] calculate the eGFR results. Performed By: #### G , BMP #### [address] [address] [facility] 08-05-2024 BUN/Creatinine Ratio 19.0 ratio Normal 10.0-22.0 [facility] Comment on above: Performed By: #### G , BMP #### [address] [address] Calcium [Mass/Vol] 9.5 mg/dL Normal 8.7-10.4 [facility] Comment on above: Performed By: #### G FR, BMP #### [address] [address] Chloride [Moles/Vol] 108 mmol/L Normal 98-110 [facility] Comment on above: Performed By: #### G FR, BMP #### [address] [address] CO2 [Moles/Vol] 29 mmol/L Normal 22-32 [facility] Comment on above: Performed By: #### Gary CARLIN, BMP #### [address] [address] Creatinine [Mass/Vol] 1.05 mg/dL Normal 0.60-1.40 [facility] Comment on above: Result Comment: Test ing performed on BIMA analyzer using enzymatic creatinine methodology. Performed By: #### Gary CARLIN, BMP #### [address] [address] Electrolyte Balance 2.0 mEq/L Low 4.0-15.0 [facility] Comment on above: Performed By: #### Gary CARLIN, BMP #### [address] [address] Glucose [Mass/Vol] 80 mg/dL Low 82-115 [facility] Comment on above: Performed By: #### Gary CARLIN, BMP #### [address] [address] Potassium [Moles/Vol] 4.7 mmol/L Normal 3.5-5.0 [facility] Comment on above: Performed By: #### Gary CARLIN, BMP #### [address] [address] Sodium [Moles/Vol] 139 mmol/L Normal 136-145 [facility] Comment on above: Performed By: #### Gary CARLIN, BMP #### [address] [address] Urea nitrogen [Mass/Vol] 20.0 mg/dL Normal 8.0-22.0 [facility] Comment on above: Performed By: #### Gary CARLIN, BMP #### [address] [address] CBC W Auto Differential pane l (Bld)on 08-05-2024 Basophils (Bld) [#/Vol] 0.07 10*3/uL Normal <0.11 [facility] Comment on above: Order Comment: Speci men Type: BLOOD SPECIMEN Ordering Facility: [facility] Address: [address] [place] [address] Performed By: #### 2 276-4, 64193-2 #### [facility] CLIA [id number] [address] [place] [address] [place] Basophils/100 WBC (Bld) 1.2 % Normal [facility] Comment on above: Order Comment: Speci men Type: BLOOD SPECIMEN Ordering Facility: [facility] Address: [address] [place] [address] Performed By: #### 2 276-4, 29084-0 #### [facility] CLIA [id number] [address] [place] [address] [place] Differential cell count method Nom (Bld) Auto Normal [facility] Comment on above: Order Comment: Speci men Type: BLOOD SPECIMEN Ordering Facility: [facility] Address: [address] [place] [address] Performed By: #### 2 276-4, 99547-7 #### [facility] CLIA [id number] [address] [place] [address] [place] Eosinophils (Bld) [#/Vol] 0.35 10*3/uL Normal <0.46 [facility] Comment on above: Order Comment: Speci men Type: BLOOD SPECIMEN Ordering Facility: [facility] Address: [address] [place] [address] Performed By: #### 2 276-4, 65339-7 #### [facility] CLIA [id number] [address] [place] [address] [place] Eosinophils/100 WBC (Bld) 5.9 % Normal [facility] Comment on above: Order Comment: Speci men Type: BLOOD SPECIMEN Ordering Facility: [facility] Address: [address] [place] [address] Performed By: #### 2 276-4, 30304-9 #### [facility] CLIA [id number] [address] [place] [address] [place] Erythrocyte distribution width (RBC) [Ratio] 20.2 % High 11.5-15.0 [facility] Comment on above: Order Comment: Speci men Type: BLOOD SPECIMEN Ordering Facility: [facility] Address: [address] [place] [address] Performed By: #### 2 276-4, 98659-7 #### [facility] CLIA [id number] [address] [place] [address] [place] Hematocrit (Bld) [Volume fraction] 43.1 % Normal 39.0-51.0 [facility] Comment on above: Order Comment: Speci men Type: BLOOD SPECIMEN Ordering Facility: [facility] Address: [address] [place] [address] Performed By: #### 2 276-4, 56476-7 #### [facility] CLIA [id number] [address] [place] [address] [place] Hemoglobin (Bld) [Mass/Vol] 13.6 g/dL Normal 13.0-17.0 [facility] Comment on above: Order Comment: Speci men Type: BLOOD SPECIMEN Ordering Facility: [facility] Address: [address] [place] [address] Performed By: #### 2 276-4, 31889-3 #### [facility] CLIA [id number] [address] [place] [address] [place] Immature granulocytes (Bld) [#/Vol] 0.03 10*3/uL Normal <0.10 [facility] Comment on above: Order Comment: Speci men Type: BLOOD SPECIMEN Ordering Facility: [facility] Address: [address] [place] [address] Performed By: #### 2 276-4, 96819-2 #### [facility] CLIA [id number] [address] [place] [address] [place] Immature granulocytes/100 WBC (Bld) 0.5 % Normal [facility] Comment on above: Order Comment: Speci men Type: BLOOD SPECIMEN Ordering Facility: [facility] Address: [address] [place] [address] Performed By: #### 2 276-4, 44375-3 #### [facility] CLIA [id number] [address] [place] [address] [place] Lymphocytes (Bld) [#/Vol] 1.45 10*3/uL Normal 1.00-4.00 [facility] Comment on above: Order Comment: Speci men Type: BLOOD SPECIMEN Ordering Facility: [facility] Address: [address] [place] [address] Performed By: #### 2 276-4, 40494-2 #### [facility] CLIA [id number] [address] [place] [address] [place] Lymphocytes/100 WBC (Bld) 24.3 % Normal [facility] Comment on above: Order Comment: Speci men Type: BLOOD SPECIMEN Ordering Facility: [facility] Address: [address] [place] [address] Performed By: #### 2 276-4, 08955-1 #### [facility] CLIA [id number] [address] [place], [place] [address] [place] MCH (RBC) [Entitic mass] 25.8 pg Low 26.0-34.0 [facility] Comment on above: Order Comment: Speci men Type: BLOOD SPECIMEN Ordering Facility: [facility] Address: [address] [place] [address] Performed By: #### 2 276-4, 14720-4 #### [facility] CLIA [id number] [address] [place], [place] [address] [place] MCHC (RBC) [Mass/Vol] 31.6 g/dL Normal 30.5-36.0 [facility] Comment on above: Order Comment: Speci men Type: BLOOD SPECIMEN Ordering Facility: [facility] Address: [address] [place] [address] Performed By: #### 2 276-4, 05537-7 #### [facility] CLIA [id number] [address] [place] [address] [place] MCV (RBC) [Entitic vol] 81.6 fL Normal 80.0-100.0 [facility] Comment on above: Order Comment: Speci men Type: BLOOD SPECIMEN Ordering Facility: [facility] Address: [address] [place] [address] Performed By: #### 2 276-4, 38925-0 #### [facility] CLIA [id number] [address] [place] [address] [place] Monocytes (Bld) [#/Vol] 0.77 10*3/uL Normal <0.87 [facility] Comment on above: Order Comment: Speci men Type: BLOOD SPECIMEN Ordering Facility: [facility] Address: [address] [place] [address] Performed By: #### 2 276-4, 64170-3 #### [facility] CLIA [id number] [address] [place] [address] [place] Monocytes/100 WBC (Bld) 12.9 % Normal [facility] Comment on above: Order Comment: Speci men Type: BLOOD SPECIMEN Ordering Facility: [facility] Address: [address] [place] [address] Performed By: #### 2 276-4, 60187-5 #### [facility] CLIA [id number] [address] [place] [address] [place] Neutrophils (Bld) [#/Vol] 3.29 10*3/uL Normal 1.45-7.50 [facility] Comment on above: Order Comment: Speci men Type: BLOOD SPECIMEN Ordering Facility: [facility] Address: [address] [place] [address] Performed By: #### 2 276-4, 65826-1 #### [facility] CLIA [id number] [address] [place] [address] [place] Neutrophils/100 WBC (Bld) 55.2 % Normal [facility] Comment on above: Order Comment: Speci men Type: BLOOD SPECIMEN Ordering Facility: [facility] Address: [address] [place] [address] Performed By: #### 2 276-4, 84152-9 #### [facility] CLIA [id number] [address] [place] [address] [place] Nucleated RBC (Bld) [#/Vol] 10*3/uL Normal <0.01 [facility] Comment on above: Order Comment: Speci men Type: BLOOD SPECIMEN Ordering Facility: [facility] Address: [address] [place] [address] Performed By: #### 2 276-4, 37729-9 #### [facility] CLIA [id number] [address] [place] [address] [place] Nucleated RBC/100 WBC (Bld) [Ratio] 0.0 /100 WBC Normal [facility] Comment on above: Order Comment: Speci men Type: BLOOD SPECIMEN Ordering Facility: [facility] Address: [address] [place] [address] Performed By: #### 2 276-4, 47567-6 #### [facility] CLIA [id number] [address] [place] [address] [place] Platelet mean volume (Bld) [Entitic vol] 8.6 fL Low 9.0-12.7 [facility] Comment on above: Order Comment: Speci men Type: BLOOD SPECIMEN Ordering Facility: [facility] Address: [address] [place] [address] Performed By: #### 2 276-4, 82489-4 #### [facility] CLIA [id number] [address] [place] [address] [place] Platelets (Bld) [#/Vol] 295 10*3/uL Normal 150-400 [facility] Comment on above: Order Comment: Speci men Type: BLOOD SPECIMEN Ordering Facility: [facility] Address: [address] [place] [address] Performed By: #### 2 276-4, 22553-1 #### [facility] CLIA [id number] [address] [place] [address] [place] RBC (Bld) [#/Vol] 5.28 10*6/uL Normal 4.20-6.00 [facility] Comment on above: Order Comment: Speci men Type: BLOOD SPECIMEN Ordering Facility: [facility] Address: [address] [place] [address] Performed By: #### 2 276-4, 52248-7 #### [facility] CLIA [id number] [address] [place] [address] [place] WBC (Bld) [#/Vol] 5.96 10*3/uL Normal 3.70-11.00 [facility] Comment on above: Order Comment: Speci men Type: BLOOD SPECIMEN Ordering Facility: [facility] Address: [address] [place] [address] Performed By: #### 2 276-4, 99243-7 #### [facility] CLIA [id number] [address] [place], [place] [address] [place] Ferritin SerPl-mCncon 2024 Ferritin [Mass/Vol] 68.2 ng/mL Normal 30.3-565.7 [facility] Comment on above: Order Comment: Speci men Type: BLOOD SPECIMEN Ordering Facility: [facility] Address: [address] [place] [address] Performed By: #### 2 276-4, 34875-2 #### [facility] CLIA [id number] [address] [place] [address] [place] Iron and Iron binding capaci ty panelon 08-05-2024 Iron [Mass/Vol] 36 ug/dL Low 41-186 [facility] Comment on above: Order Comment: Speci men Type: BLOOD SPECIMEN Ordering Facility: [facility] Address: [address] [place] [address] Performed By: #### 2 276-4, 47988-9 #### [facility] CLIA [id number] [address] [place] [address] [place] Iron binding capacity [Mass/Vol] 299 ug/dL Normal 232-386 [facility] Comment on above: Order Comment: Speci men Type: BLOOD SPECIMEN Ordering Facility: [facility] Address: [address] [place] [address] Performed By: #### 2 276-4, 73764-4 #### [facility] CLIA [id number] [address] [place] [address] [place] Iron/TIBC [Molar ratio] 12.0 % Low 15.0-57.0 [facility] Comment on above: Order Comment: Speci men Type: BLOOD SPECIMEN Ordering Facility: [facility] Address: [address] [place] [address] Performed By: #### 2 276-4, 36486-0 #### [facility] CLIA [id number] [address] [place], [place] [address] [place] LABORATORYOrdered By: SYSTEM SYSTEM on 08-05-2024 Calcium [Mass/Vol] 9.5 mg/dL Normal 8.7 - 10. 4 mg/dL AH ADM SS Chloride [Moles/Vol] 108 mmol/L Normal 98 - 11 0 mEq/L AH ADM SS CO2 [Moles/Vol] 29 mmol/L Normal 22 - 32 mEq/L AH ADM SS Creatinine [Mass/Vol] 1.05 mg/dL Normal 0.60 - 1.40 mg/dL AH ADM SS Comment on above: Interpretive Data: T esting performed on BIMA analyzer using enzymatic creatinine methodology. Electrolyte Balance [...] 10.0 - 22.0 ratio AH ADM SS Max 08-03-2024 KEMI Telephone (SHARON) -- RADHA MENG ([id number]) 1950 M Date Time Provider Department 08/03/24 [...] wait until after surgery. Please advise. Aundrea Mendosa LPN 08/03/2024 2:35 PM Addendum I called and spoke with Dr. Proctor's office, patient had colonoscopy on 07/09/2024. They will send colonoscopy and path report. They referred him to Dr. Moi Corea. I will request the last OV note as well. Aundrea Mendosa LPN OV note requested from Dr. Moi Corea. MIKE Singleton Brianna 08/07/2024 3:11 PM Signed Called pts spouse to review labs. Overall Hgb has improved. Iron is sufficient. 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 They are seeing a colorectal surgeon at [place] with plans for surgery on 08/26. Per [...] 08/07/2024 3:24 PM Signed OV canceled Aundrea Mendosa LPN 08/07/2024 3:52 PM Signed Patient saw colorectal surgeon at [place] instead of doc listed below. Aundrea Mendosa LPN Allergies As of Date: 08/03/2024 Noted [...] RELIEF) 50 mcg/actuation nasal spray Use 1 Lincoln in each nostril once daily as needed. [...] secondary to inadequate *05/22/2024 Encounter Status:Closed by AUNDREA MENDOSA on 08/07/24 Normal [facility] CT THORAX W/ CONTRASTon 05-0 CT [...] 07/31/2024 9:53:50 AM Ordering Provider: CELIA Alarcon [facility] CT ABDOMEN/PELVIS W/CONTRAST on 07-29-2024 CT [...] 07/29/2024 2:51:26 PM Ordering Provider: CELIA Alarcon [facility] Venous duplex ultrasound rep ortOrdered By: Uri Mendosa on 07-16-2024 US Vein [facility] [address] [place] [address] Venous Duplex US, Unilateral 07/15/24 1501 MR#: [id number] Acct: [id number] Name: RADHA MENG Rep #:[id number] : 1950 74 From: Uri Vaca Attending Dr: Flavia Jacome NP-C Status: REG CLI Ordering Dr: Flavia JacomeC Date: 07/15/24 Location: [facility] Sex: M C Admitted: Reason For Study [...] M.D. Performed By: Alba Hernandez RVT ??? 07/16/24 1658 Date _ Uri Mendosa MD CC: COMMUNICATION LECTURER-C Flavia Jacome; Dr. DO Becca Guevara Date Dictated: 07/15/24 1501 Date Transcribed: 07/16/24 1658 Licensed Occupational Therapist: Signed [facility] Work Phone: Venous Duplex US, Unilateral on 07-15-2024 Venous Duplex US, Unilateral [facility] [address] [place] [address] Venous Duplex US, Unilateral 07/15/24 1501 MR#: [id number] Acct: [id number] Name: RADHA MENG Rep #: [id number] : 1950 74 From: Uri Mendosa MD Attending Dr: Flavia Jacome, MICHELLE-C Status: REG CLI Ordering Dr: Flavia Jacome COMMUNICATION LECTURER-C Date: 07/15/24 Location: [facility] Sex: M C [...] Physician: Rosita Capone M.D. Performed By: Alba Hernandez, RVT ??? 07/16/241657 Date Uri Mendosa MD CC: COMMUNICATION LECTURER-C Flavia Jacome; Dr. Rosita Capone, DO Date Dictated: 07/15/24 1501 Date Transcribed: 07/16/241657 Licensed Occupational Therapist: Signed Normal [facility] CNPN Telephone (HEMAWS) -- RADHA MENG ([id number]) 1950 M Date Time Provider Department 07/14/24 [...] Rash Date Reviewed: 06/05/2024 Reviewed by: Suzy Daily RN - Fully Assessed Reason for Visit: Patient Question [5367] Primary Visit Diagnosis:Iron deficiency anemia secondary to inadequate dietary iron intake [D50.8] Order(s):COMPLETE BLOOD COUNT AND DIFFERENTIAL [SQCBCDIF] Order #: [id number] FUTURE FERRITIN [SQFERR] Order #: [id number] FUTURE IRON AND TIBC [SQIRON] Order #: [id number] FUTURE Prescriptions as of 07/14/2024 - tamsulosin [...] RELIEF) 50 mcg/actuation nasal spray Use 1 Lincoln in each nostril once daily as needed. [...] Status:Closed by CHARLIE DOUGLAS on 07/14/24 Normal [facility] PSA, total screeningOrdered By: Amanda White on 06-16-2024 Prostate Specific Antigen Screen 1.40 ng/mL 0.02-4.00 [facility] Comment on above: This test was perfor [...] 06-16-2024 PSA,TOT SCREEN 1.40 ng/mL Normal 0.02-4.00 [facility] Comment on above: Result Comment: This test [...] values. Performed By: #### L 501.9910 #### [facility] [address] [place], [address] CBC W Ordered Manual Differe ntial panel (Bld)on 06-03-2024 Basophils (Bld) [#/Vol] 0.06 10*3/uL Normal <0.11 [facility] Comment on above: Order Comment: Speci men Type: BLOOD SPECIMEN Ordering Facility: [facility] Address: [address] [place] [address] Performed By: #### 2 276-4, 83865-0 #### [facility] CLIA [id number] [address] [place] [address] [place] Basophils/100 WBC (Bld) 1.1 % Normal [facility] Comment on above: Order Comment: Speci men Type: BLOOD SPECIMEN Ordering Facility: [facility] Address: [address] [place] [address] Performed By: #### 2 276-4, 11054-2 #### [facility] CLIA [id number] [address] [place], [place] [address] [place] Differential cell count method Nom (Bld) Auto Normal [facility] Comment on above: Order Comment: Speci men Type: BLOOD SPECIMEN Ordering Facility: [facility] Address: [address] [place] [address] Performed By: #### 2 276-4, 21387-7 #### [facility] CLIA [id number] [address] [place] [address] [place] Eosinophils (Bld) [#/Vol] 0.28 10*3/uL Normal <0.46 [facility] Comment on above: Order Comment: Speci men Type: BLOOD SPECIMEN Ordering Facility: [facility] Address: [address] [place] [address] Performed By: #### 2 276-4, 61537-0 #### [facility] CLIA [id number] [address] [place] [address] [place] Eosinophils/100 WBC (Bld) 5.0 % Normal [facility] Comment on above: Order Comment: Speci men Type: BLOOD SPECIMEN Ordering Facility: [facility] Address: [address] [place] [address] Performed By: #### 2 276-4, 65723-2 #### [facility] CLIA [id number] [address] [place] [address] [place] Erythrocyte distribution width (RBC) [Ratio] 30.4 % High 11.5-15.0 [facility] Comment on above: Order Comment: Speci men Type: BLOOD SPECIMEN Ordering Facility: [facility] Address: [address] [place] [address] Performed By: #### 2 276-4, 39518-6 #### [facility] CLIA [id number] [address] [place] [address] [place] Hematocrit (Bld) [Volume fraction] 35.2 % Low 39.0-51.0 [facility] Comment on above: Order Comment: Speci men Type: BLOOD SPECIMEN Ordering Facility: [facility] Address: [address] [place] [address] Performed By: #### 2 276-4, 75827-4 #### [facility] CLIA [id number] [address] [place] [address] [place] Hemoglobin (Bld) [Mass/Vol] 9.6 g/dL Low 13.0-17.0 [facility] Comment on above: Order Comment: Speci men Type: BLOOD SPECIMEN Ordering Facility: [facility] Address: [address] [place] [address] Performed By: #### 2 276-4, 81111-0 #### [facility] CLIA [id number] [address] [place] [address] [place] Immature granulocytes (Bld) [#/Vol] 0.03 10*3/uL Normal <0.10 [facility] Comment on above: Order Comment: Speci men Type: BLOOD SPECIMEN Ordering Facility: [facility] Address: [address] [place] [address] Performed By: #### 2 276-4, 77121-3 #### [facility] CLIA [id number] [address] [place] [address] [place] Immature granulocytes/100 WBC (Bld) 0.5 % Normal [facility] Comment on above: Order Comment: Speci men Type: BLOOD SPECIMEN Ordering Facility: [facility] Address: [address] [place] [address] Performed By: #### 2 276-4, 76439-6 #### [facility] CLIA [id number] [address] [place] [address] [place] Lymphocytes (Bld) [#/Vol] 1.21 10*3/uL Normal 1.00-4.00 [facility] Comment on above: Order Comment: Speci men Type: BLOOD SPECIMEN Ordering Facility: [facility] Address: [address] [place] [address] Performed By: #### 2 276-4, 75729-2 #### [facility] CLIA [id number] [address] [place] [address] [place] Lymphocytes/100 WBC (Bld) 21.5 % Normal [facility] Comment on above: Order Comment: Speci men Type: BLOOD SPECIMEN Ordering Facility: [facility] Address: [address] [address] [place], [place] [address] Performed By: #### 2 276-4, 16291-1 #### [facility] CLIA [id number] [address] [place] [address] [place] MCH (RBC) [Entitic mass] 19.1 pg Low 26.0-34.0 [facility] Comment on above: Order Comment: Speci men Type: BLOOD SPECIMEN Ordering Facility: [facility] Address: [address] [place] [address] Performed By: #### 2 276-4, 38800-5 #### [facility] CLIA [id number] [address] [place] [address] [place] MCHC (RBC) [Mass/Vol] 27.3 g/dL Low 30.5-36.0 [facility] Comment on above: Order Comment: Speci men Type: BLOOD SPECIMEN Ordering Facility: [facility] Address: [address] [place] [address] Performed By: #### 2 276-4, 31178-0 #### [facility] CLIA [id number] [address] [place] [address] [place] MCV (RBC) [Entitic vol] 70.1 fL Low 80.0-100.0 [facility] Comment on above: Order Comment: Speci men Type: BLOOD SPECIMEN Ordering Facility: [facility] Address: [address] [place] [address] Performed By: #### 2 276-4, 23912-2 #### [facility] CLIA [id number] [address] [place] [address] [place] Monocytes (Bld) [#/Vol] 0.69 10*3/uL Normal <0.87 [facility] Comment on above: Order Comment: Speci men Type: BLOOD SPECIMEN Ordering Facility: [facility] Address: [address] [place] [address] Performed By: #### 2 276-4, 39379-1 #### [facility] CLIA [id number] [address] [place] [address] [place] Monocytes/100 WBC (Bld) 12.3 % Normal [facility] Comment on above: Order Comment: Speci men Type: BLOOD SPECIMEN Ordering Facility: [facility] Address: [address] [place] [address] Performed By: #### 2 276-4, 67252-3 #### [facility] CLIA [id number] [address] [place] [address] [place] Neutrophils (Bld) [#/Vol] 3.36 10*3/uL Normal 1.45-7.50 [facility] Comment on above: Order Comment: Speci men Type: BLOOD SPECIMEN Ordering Facility: [facility] Address: [address] [place] [address] Performed By: #### 2 276-4, 74507-5 #### [facility] CLIA [id number] [address] [place] [address] [place] Neutrophils/100 WBC (Bld) 59.6 % Normal [facility] Comment on above: Order Comment: Speci men Type: BLOOD SPECIMEN Ordering Facility: [facility] Address: [address] [place] [address] Performed By: #### 2 276-4, 90700-3 #### [facility] CLIA [id number] [address] [place] [address] [place] Nucleated RBC (Bld) [#/Vol] 10*3/uL Normal <0.01 [facility] Comment on above: Order Comment: Speci men Type: BLOOD SPECIMEN Ordering Facility: [facility] Address: [address] [place] [address] Performed By: #### 2 276-4, 36231-2 #### [facility] CLIA [id number] [address] [place] [address] [place] Nucleated RBC/100 WBC (Bld) [Ratio] 0.0 /100 WBC Normal [facility] Comment on above: Order Comment: Speci men Type: BLOOD SPECIMEN Ordering Facility: [facility] Address: [address] [place] [address] Performed By: #### 2 276-4, 88720-7 #### [facility] CLIA [id number] [address] [place] [address] [place] Platelet mean volume (Bld) [Entitic vol] 8.4 fL Low 9.0-12.7 [facility] Comment on above: Order Comment: Speci men Type: BLOOD SPECIMEN Ordering Facility: [facility] Address: [address] [place] [address] Performed By: #### 2 276-4, 61897-0 #### [facility] CLIA [id number] [address] [place] [address] [place] Platelets (Bld) [#/Vol] 357 10*3/uL Normal 150-400 [facility] Comment on above: Order Comment: Speci men Type: BLOOD SPECIMEN Ordering Facility: [facility] Address: [address] [place] [address] Performed By: #### 2 276-4, 15099-3 #### [facility] CLIA [id number] [address] [place] [address] [place] RBC (Bld) [#/Vol] 5.02 10*6/uL Normal 4.20-6.00 [facility] Comment on above: Order Comment: Speci men Type: BLOOD SPECIMEN Ordering Facility: [facility] Address: [address] [place] [address] Performed By: #### 2 276-4, 56554-4 #### [facility] CLIA [id number] [address] [place] [address] [place] WBC (Bld) [#/Vol] 5.63 10*3/uL Normal 3.70-11.00 [facility] Comment on above: Order Comment: Speci men Type: BLOOD SPECIMEN Ordering Facility: [facility] Address: [address] [place] [address] Performed By: #### 2 276-4, 69895-3 #### [facility] CLIA [id number] [address] [place] [address] PATHOLOGIST INTERPRETATION C BC/DIFFon 06-03-2024 Shirt Folding Machine Operator review Julian (Unsp spec) [Interp] No review performed. Normal [facility] Comment on above: Order Comment: Isatu mitchell Type: BLOOD SPECIMEN Ordering Facility: [facility] Address: [address] [place] [address] Performed By: #### 2 276-4, 66354-3 #### [facility] CLIA [id number] [address] [place] [address] STAFF REVIEW, CBCDIF The Pathologist Interpretation on this sample was cancelled because the hematology analyzer did not flag any parameters as requiring manual review. If there is a specific clinical concern for which you would like a pathologist to review the blood smear, please call Lab Client Services within 28 days. Normal [facility] Comment on above: Order Comment: Isatu mitchell Type: BLOOD SPECIMEN Ordering Facility: [facility] Address: [address] [place] [address] Performed By: #### 2 276-4, 80472-6 #### [facility] CLIA [id number] [address] [place], [place] [address] [facility] Max 06-02-2024 BERKLEYN Telephone (SHARON) -- RADHA MENG ([id number]) 1950 Date Time Provider Department 06/02/24 CHARLOTTE ZUNIGA During your visit today, we recorded the following information about you: Charlotte Zuniga LISW 06/02/2024 9:48 AM Signed Pt noted on [facility] 1st time treatment report. Pt has a non-oncology regimen. No social work follow up indicated. YVROSE Sharif-S Allergies As of Date: 06/02/2024 Noted Allergy Reaction ADHESIVE TAPE-SILICONES 05/22/2024 2 - Rash AMOXICILLIN 05/22/2024 2 - Rash Date Reviewed: 06/01/2024 Reviewed by: Lilly Balderas, MARIAH - Fully Assessed Reason for Visit: Social [...] RELIEF) 50 mcg/actuation nasal spray Use 1 Lincoln in each nostril once daily as needed. [...] on 06/02/24 [facility] CNOVSPon 05-22-2024 CNOVSP Visit (SP) Office (H EMAWS) -- RADHA MENG ([id number]) 1950 M Date Time Provider Department 05/22/24 [...] but started to feel more fatigued and ORBLES on runs over the last year. Has [...] folate WNL. 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 [...] 78 Temp (Src) 97 (Temporal) Ht 5' 10 (1.78m) Wt 182 lb (82.6kg) SpO2 100% [...] prior - (more content not included)... Normal [facility] Chest PA and Lateralon 04-30 Chest PA and Lateral [facility] Imaging Services [address] [place] [address] Chest PA and Lateral MR#: [id number] Acct: [id number] Name: RADHA MENG Rep #: [id number] : 1950 M 74 From: Moi Vaca PCP: Dr. Rosita Capone DO Status: DEP AMB Study: Chest PA and Lateral Date of Exam: 04/30/24 Exam# [id number] Ordering Dr: Rosita Capone DO PROCEDURE: CHEST PA AND LATERAL REASON FOR EXAM: Cough. 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 TECHNIQUE: Four view PA and lateral chest. COMPARISON: None. FINDINGS: The heart size is normal. The mediastinal contour is unremarkable. The lungs are clear. The bones are unremarkable, for age. RAD/Chest PA and Lateral IMPRESSION: No evidence of acute cardiopulmonary disease. Reading Location: [address] CC: Dr. Rosita Capone DO Licensed Occupational Therapist: Signed Normal [facility] No Panel InformationOrdered By: MICHELLE Banks on 06-13-2023 Prostate Specific Antigen Screen 2.32 ng/mL 0.00-4.00 [facility] Comment on above: This test was perfor med using the TPSA assay method for theMovinary chemistry system. Values obtained with differentassay methods cannot be used interchangably.When changing PSA assays in the course of monitoring apatient, additional sequential testing should be carriedout to confirm baseline values. Basophil percentageOrdered B y: Dr. Capone on 07-17-2022 Potassium [Moles/Vol] 4.8 mmol/L 3.5-5.1 [facility] CBC W/AUTO DIFF WBC (03899)O rdered By: Drawing Operator on 07-16-2022 Basophils (Bld) [#/Vol] 0.1 10*3/uL Normal 0.0-0.2 [facility] Work Phone: Comment on above: PATIENT WAS FASTINGP ERFORMED BY: [employer] [id number] [facility] [id number] Basophils/100 WBC (Bld) 1 % Normal [facility] Work Phone: Comment on above: PATIENT WAS FASTINGP ERFORMED BY: [facility] [id number] [facility] [id number] Eosinophils (Bld) [#/Vol] 0.2 10*3/uL Normal 0.0-0.4 [facility]; [facility] Work Phone: Comment on above: PATIENT WAS FASTINGP ERFORMED BY: [facility]rp [id number] [facility] [id number] Eosinophils/100 WBC (Bld) 3 % Normal [facility]; [facility] Work Phone: Comment on above: PATIENT WAS FASTINGP ERFORMED BY: [facility] [id number] [facility] [facility] [id number] Erythrocyte distribution width (RBC) [Ratio] 12.3 % Normal 11.6-15.4 [facility]; [facility] Work Phone: Comment on above: PATIENT WAS FASTINGP ERFORMED BY: [facility] Tada [id number] [facility] [id number] Hematocrit (Bld) [Volume fraction] 42.9 % Normal 37.5-51.0 [facility]; [facility] Work Phone: Comment on above: PATIENT WAS FASTINGP ERFORMED BY: [facility] [facility] [id number] Hemoglobin (Bld) [Mass/Vol] 14.1 g/dL Normal 13.0-17.7 [facility]; [facility] Work Phone: Comment on above: PATIENT WAS FASTINGP ERFORMED BY: [place] [id number] [facility] [place] [id number] Immature granulocytes (Bld) [#/Vol] 0.0 10*3/uL Normal 0.0-0.1 [facility]; [facility] Work Phone: Comment on above: PATIENT WAS FASTINGP ERFORMED BY: [place] [id number] [facility] [id number] Immature granulocytes/100 WBC (Bld) 1 % Normal [facility]; [facility] Work Phone: Comment on above: PATIENT WAS FASTINGP ERFORMED BY: [address] [facility] [id number] Lymphocytes (Bld) [#/Vol] 1.5 10*3/uL Normal 0.7-3.1 [facility]; [facility] Work Phone: Comment on above: PATIENT WAS FASTINGP ERFORMED BY: [place] [id number] [facility] [place] [id number] Lymphocytes/100 WBC (Bld) 24 % Normal [facility]; [facility] Work Phone: Comment on above: PATIENT WAS FASTINGP ERFORMED BY: [place] [id number] [facility] [id number] MCH (RBC) [Entitic mass] 27.5 pg Normal 26.6-33.0 [facility]; [facility] Work Phone: Comment on above: PATIENT WAS FASTINGP ERFORMED BY: [place] [id number] [facility] [place] [id number] MCHC (RBC) [Mass/Vol] 32.9 g/dL Normal 31.5-35.7 [facility]; [facility] Work Phone: Comment on above: PATIENT WAS FASTINGP ERFORMED BY: CB [facility] Cnmvnn1843 Johnson RoadDublin [place] [id number] MCV (RBC) [Entitic vol] 84 fL Normal 79-97 [facility]; [facility] Work Phone: Comment on above: PATIENT WAS FASTINGP ERFORMED BY: CB [facility] Daynfu3106 [address] RoadDublin [place] [id number] Monocytes (Bld) [#/Vol] 0.7 10*3/uL Normal 0.1-0.9 [facility]; [facility] Work Phone: Comment on above: PATIENT WAS FASTINGP ERFORMED BY: CB [facility] Atsquk6943 [address] RoadDublin [place] [id number] Monocytes/100 WBC (Bld) 11 % Normal [facility]; [facility] Work Phone: Comment on above: PATIENT WAS FASTINGP ERFORMED BY: CB [facility] Sjuaez0950 [address] RoadDublin [place] [id number] Neutrophils (Bld) [#/Vol] 3.9 10*3/uL Normal 1.4-7.0 [facility]; [facility] Work Phone: Comment on above: PATIENT WAS FASTINGP ERFORMED BY: CB [facility] Esqvnm2384 [address] RoadDublin [place] [id number] Neutrophils/100 WBC (Bld) 60 % Normal [facility]; [facility] Work Phone: Comment on above: PATIENT WAS FASTINGP ERFORMED BY: CB [facility] Ffdfrz8074 [address] RoadDublin [place] [id number] Platelets (Bld) [#/Vol] 339 10*3/uL Normal 150-450 [facility]; [facility] Work Phone: Comment on above: PATIENT WAS FASTINGP ERFORMED BY: CB [facility] Qljedv9336 [address] RoadDublin [place] [id number] RBC (Bld) [#/Vol] 5.12 10*6/uL Normal 4.14-5.80 Compr ehensive Internal Medicine; [facility] Work Phone: Comment on above: PATIENT WAS FASTINGP ERFORMED BY: AUDREY [facility] Pilxqc2368 Johnson RoadDublin [place] [id number] WBC (Bld) [#/Vol] 6.3 10*3/uL Normal 3.4-10.8 [facility] Internal Medicine; [facility] Work Phone: Comment on above: PATIENT WAS FASTINGP ERFORMED BY: AUDREY [facility] Vufpjo0522 [address] RoadDublin [place] [id number] LIPID PANEL (35662)Ordered B y: Drawing Operator on 07-16-2022 Cholesterol [Mass/Vol] 196 mg/dL Normal 100-199 [facility]; [facility] Work Phone: Comment on above: PATIENT WAS FASTINGP ERFORMED BY: AUDREY Labcomadeline RazaQvlupz3926 [address] RoadDublin [place] [id number] Cholesterol in HDL [Mass/Vol] 46 mg/dL Normal [facility]; [facility] Work Phone: Comment on above: PATIENT WAS FASTINGP ERFORMED BY: AUDREY [facility] Xasfor1785 [address] RoadDublin [place] [id number] Triglyceride [Mass/Vol] 121 mg/dL Normal 0-149 [facility]; [facility] Work Phone: Comment on above: PATIENT WAS FASTINGP ERFORMED BY: AUDREY [facility] Asbdhn1040 [address] RoadDublin [place] [id number] LIPID PANEL (37702) 22 mg/dL Normal 5-40 [facility]; [facility] Work Phone: Comment on above: PATIENT WAS FASTINGP ERFORMED BY: CB [facility] Bjxewv9184 [address] RoadDublin [place] [id number] LIPID PANEL (17585) 128 mg/dL Abnormal 0-99 [facility]; [facility] Work Phone: Comment on above: PATIENT WAS FASTINGP ERFORMED BY: AUDREY [facility] Abhleg9600 [address] RoadDublin [place] [id number] LIPID PANEL (04154) 2.8 {ratio} Normal 0.0-3.6 Comp [facility]ensive [facility]; [facility] Work Phone: Comment on above: LDL/HDL Ratio Men Wo men 1/2 Avg.Risk 1.0 1.5 Avg.Risk 3.6 3.2 2X Avg.Risk 6.2 5.0 3X Avg.Risk 8.0 6.1 PATIENT WAS FASTINGP ERFORMED BY: CB [facility] Wtjndh7253 [address] RoadDublin [place] [id number] METABOLIC PANEL, COMPREHENSI VE (50103)Ordered By: Drawing Operator on 07-16-2022 Albumin [Mass/Vol] 4.6 g/dL Normal 3.7-4.7 [facility] Internal Medicine; [facility] Work Phone: Comment on above: PATIENT WAS FASTINGP ERFORMED BY: CB [facility] Ijrdci4494 [address] RoadDublin [place] [id number] Albumin/Globulin [Mass ratio] 1.9 {ratio} Normal 1.2-2.2 [facility]; [facility] Work Phone: Comment on above: PATIENT WAS FASTINGP ERFORMED BY: CB [facility] Gqlgud2845 [address] RoadDublin [place] [id number] ALP [Catalytic activity/Vol] 94 U/L Normal 44-121 [facility]; [facility] Work Phone: Comment on above: PATIENT WAS FASTINGP ERFORMED BY: CB [facility] Duaioo0268 [address] RoadDublin [place] [id number] ALT [Catalytic activity/Vol] 27 U/L Normal 0-44 [facility]; [facility] Work Phone: Comment on above: PATIENT WAS FASTINGP ERFORMED BY: CB [facility] Fzigva8[address] RoadDublin [place] [id number] AST [Catalytic activity/Vol] 26 U/L Normal 0-40 [facility]; [facility] Work Phone: Comment on above: PATIENT WAS FASTINGP ERFORMED BY: CB [facility] Psvgok11[address] RoadDublin [place] [id number] Bilirubin [Mass/Vol] 0.6 mg/dL Normal 0.0-1.2 Comp rehensive Internal Medicine; [facility] Work Phone: Comment on above: PATIENT WAS FASTINGP ERFORMED BY: AUDREY [facility] Llrkio5380 [address] Roadblin [place] [id number] Calcium [Mass/Vol] 9.8 mg/dL Normal 8.6-10.2 [facility]; [facility] Work Phone: Comment on above: PATIENT WAS FASTINGP ERFORMED BY: [facility] Eppvhj[address] [facility] [place] [id number] Chloride [Moles/Vol] 104 mmol/L Normal 96-106 Comp rehensive Internal Medicine; [facility] Work Phone: Comment on above: PATIENT WAS FASTINGP ERFORMED BY: Labss[facility] Yrnbzc[address] [facility]in [place] [id number] CO2 [Moles/Vol] 22 mmol/L Normal 20-29 Comprehen [facility]; [facility] Work Phone: Comment on above: PATIENT WAS FASTINGP ERFORMED BY: [facility] Mulvxi[address] [facility]in [place] [id number] Creatinine [Mass/Vol] 1.03 mg/dL Normal 0.76-1.27 [facility]; [facility] Work Phone: Comment on above: PATIENT WAS FASTINGP ERFORMED BY: [facility] Hyltay[address] [facility] [place] [id number] GFR/1.73 sq M.predicted among non-blacks MDRD (S/P/Bld) [Vol rate/Area] 78 mL/min/{1.73_m2} Normal Comprehensiv e Internal Medicine; [facility] Work Phone: Comment on above: PATIENT WAS FASTINGP ERFORMED BY: [facility] Pytjtm[address] [facility] [place] [id number] Globulin (S) [Mass/Vol] 2.4 g/dL Normal 1.5-4.5 [facility]; [facility] Work Phone: Comment on above: PATIENT WAS FASTINGP ERFORMED BY: [facility] Vgcqvh7815 [address] RoadDublin [place] [id number] Glucose [Mass/Vol] 93 mg/dL Normal 70-99 [facility] Internal Medicine; [facility] Work Phone: Comment on above: PATIENT WAS FASTINGP ERFORMED BY: [facility] Wiicvy4619 [address] RoadDublin [place] [id number] Potassium [Moles/Vol] 5.4 mmol/L Abnormal 3.5-5.2 [facility]; [facility] Work Phone: Comment on above: PATIENT WAS FASTINGP ERFORMED BY: [facility] Oyxose23[address] Roadblin [place] [id number] Protein [Mass/Vol] 7.0 g/dL Normal 6.0-8.5 [facility] Internal Medicine; [facility] Work Phone: Comment on above: PATIENT WAS FASTINGP ERFORMED BY: [facility] Cwpkwu[address] [facility] [place] [id number] Sodium [Moles/Vol] 139 mmol/L Normal 134-144 [facility] Internal Medicine; [facility] Work Phone: Comment on above: PATIENT WAS FASTINGP ERFORMED BY: [facility] Ezrcjp[address] [facility] [place] [id number] Urea nitrogen [Mass/Vol] 24 mg/dL Normal 8-27 [facility]; [facility] Work Phone: Comment on above: PATIENT WAS FASTINGP ERFORMED BY: [facility] Ezxdwq[address] [facility]in [place] [id number] Urea nitrogen/Creatinine [Mass ratio] 23 mg/mg Normal 10-24 [facility]; [facility] Work Phone: Comment on above: PATIENT WAS FASTINGP ERFORMED BY: [facility] Hsxwla[address] [facility] Centerbl[facility] [place] [id number] TSH ([id number])Ordered By: Marvin Mcguire on 07-16-2022 TSH Qn 2.110 {uIU/mL} Normal 0.450-4.50 0 [facility]; [facility] Work Phone: Comment on above: PATIENT WAS FASTINGP ERFORMED BY: [employer]Co6370 IPR InternationalNovant Health Ballantyne [facility] [id number] No Panel InformationOrdered By: Dr. Lopez on 05-29-2022 Prostate Specific Antigen Screen 1.75 ng/mL 0.00-4.00 [facility] Comment on above: This test was perfor med using the TPSA assay method for [employer] chemistry system. Values obtained with differentassay methods cannot be used interchangably.When changing PSA assays in the course of monitoring apatient, additional sequential testing should be carriedout to confirm baseline values. HEPATITIS C ANTIBODY (07224) Ordered By: Drawing Operator on 06-07-2021 HCV Ab Signal/Cutoff IA [Rel units/Vol] {ratio} Normal 0.0-0.9 [facility]; [facility] Work Phone: Comment on above: Negative: < 0.8 Inde terminate: 0.8 - 0.9 Positive: > 0.9 . The CDC recommends that a positive HCV antibody result be followed up with a HCV Nucleic Acid Amplification test (527237). PATIENT NOT FASTINGP ERFORMED BY: [employer]Co6370 IPR InternationalNovant Health Ballantyne [facility] Center [id number] PSA (PROSTATE SPECIFIC ANTIG EN) (V76.44)Ordered By: Drawing Operator on 03-10-2020 Prostate specific Ag [Mass/Vol] 1.9 ng/mL Normal 0.0-4.0 [facility]; [facility] Work Phone: Comment on above: [employer] ECLIA methodol ogy. .According to the [place] [employer], Serum PSA shoulddecrease and remain [...] dr eyal polo; PATIENT NOT FASTINGPERFORMED BY: [employer]6370 [facility] [id number] 2018 Novel Coronavirus (COVI D-19), FARIBA (96309)Ordered By: Drawing Operator on 02-22-20202018 Novel Coronavirus (COVID-19), FARIBA (69899) Not Detected Normal [facility]; [facility] Work Phone: Comment on above: This nucleic acid am plification test was developed and its performancecharacteristics determined by [employer]. Nucleic acidamplification tests include PCR and TMA. [...] this assay. PATIENT NOT FASTINGP ERFORMED BY: [facility] Central Uxakbolyee9775 [facility] [place] [id number] 2019 Novel Coronavirus (COVID-19), FARIBA (32655) Not detected Normal [facility]; [facility] Work Phone: Comment on above: This nucleic acid am plification test was developed and its performancecharacteristics determined by [employer]. Nucleic acidamplification tests include PCR and TMA. [...] this assay. PATIENT NOT FASTINGP ERFORMED BY: [employer]TodayJANAY [employer] Central Iuylfbygfb1285 [employer] [facility] [place] [id number] PSA,Total - Annual ScreenOrd ered By: Drawing Operator on 04-29-2018 Prostate specific Ag [Mass/Vol] 1.62 ng/mL Normal 0.00-4.00 [facility] Work Phone: Comment on above: This test was perfor med using the TPSA assay method for [employer] chemistry system. Values obtained with differentassay methods cannot be used interchangably.When changing PSA assays in the course of monitoring apatient, additional sequential testing should be carriedout to confirm baseline values. [facility] Gvhjpdtxuq7261 [facility]. [place], [place], [address] CBC W/AUTO DIFF WBC (70578)O rdered By: Drawing Operator on 12-13-2017 Basophils (Bld) [#/Vol] 0.0 {x10E3/uL} Normal 0.0-0.2 [facility] Work Phone: Comment on above: PATIENT WAS FASTINGP ERFORMED BY: LabCoSouthern Ocean Medical CenterAmemuxyfzw4156 [facility] [id number] BY: LabCoHunterdon Medical CenterMuvngi6308 [facility] [id number] Basophils (Bld) [#/Vol] 0.0 10*3/uL Normal 0.0-0.2 [facility]; [facility] Work Phone: Comment on above: PATIENT WAS FASTINGP ERFORMED BY: [employer] [id number] BY: [employer] Learning LabSarah Ville [id number] [facility] [id number] Basophils Auto #/vol (Bld) 0.0 {x10E3/uL} Normal 0.0-0.2 [facility] Work Phone: Basophils/100 WBC (Bld) 1 % Normal [facility] Work Phone: Comment on above: PATIENT WAS FASTINGP ERFORMED BY: [employer] [id number] BY: [employer] Learning LabSarah Ville [id number] [facility] [id number] Basophils/100 WBC Auto (Bld) 1 % Normal [facility] Work Phone: Eosinophils (Bld) [#/Vol] 0.2 {x10E3/uL} Normal 0.0-0.4 [facility] Work Phone: Comment on above: PATIENT WAS FASTINGP ERFORMED BY: [employer] [id number] BY: [employer] Learning LabSarah [place] [id number] [facility] [id number] Eosinophils (Bld) [#/Vol] 0.2 10*3/uL Normal 0.0-0.4 [facility]; [facility] Work Phone: Comment on above: PATIENT WAS FASTINGP ERFORMED BY: [employer] [id number] BY: [employer] Learning LabSarah [place] 5108070 [facility] [id number] Eosinophils Auto #/vol (Bld) 0.2 {x10E3/uL} Normal 0.0-0.4 [facility] Work Phone: Eosinophils/100 WBC (Bld) 3 % Normal [facility] Work Phone: Comment on above: PATIENT WAS FASTINGP ERFORMED BY: [employer] [address] [id number] BY: [employer] Learning LabHunterdon Medical CenterKrcpkt8585 [facility] [id number] Eosinophils/100 WBC Auto (Bld) 3 % Normal [facility] Work Phone: Erythrocyte distribution width (RBC) [Ratio] 13.3 % Normal 12.3-15.4 [facility] Work Phone: Comment on above: PATIENT WAS FASTINGP ERFORMED BY: [employer] [address] [id number] BY: CustExlin6370 [facility] [id number] Erythrocyte distribution width Auto Ratio (RBC) 13.3 % Normal 12.3-15.4 [facility] Work Phone: Hematocrit (Bld) [Volume fraction] 48.5 % Normal 37.5-51.0 [facility] Work Phone: Comment on above: PATIENT WAS FASTINGP ERFORMED BY: [employer] [address] [id number] BY: LoteritySarah [place] 5108070 [facility] [id number] Hematocrit Auto Volume Fraction (Bld) 48.5 % Normal 37.5-51.0 [facility] Work Phone: Hemoglobin mass conc (Bld) 16.9 g/dL Normal 13.0-17.7 [facility] Work Phone: Comment on above: PATIENT WAS FASTINGP ERFORMED BY: [employer] [address] [id number] BY: [employer] Udzlod8705 [facility] [id number] Immature granulocytes #/vol (Bld) 0.0 {x10E3/uL} Normal 0.0-0.1 [facility] Work Phone: Comment on above: PATIENT WAS FASTINGP ERFORMED BY: [employer] [address] [id number] BY: [facility]6[address] RoadDublin [place] [id number] Immature granulocytes (Bld) [#/Vol] 0.0 10*3/uL Normal 0.0-0.1 [facility]; [facility] Work Phone: Comment on above: PATIENT WAS FASTINGP ERFORMED BY: [address] [id number] BY: LabMichael Ville 7752670 Johnson RoadDuke Regional Hospitalin [place] [id number] Immature granulocytes/100 WBC (Bld) 0 % Normal [facility] Work Phone: Comment on above: PATIENT WAS FASTINGP ERFORMED BY: [address] [id number] BY: [place] [address]01[address] [facility] [id number] Lymphocytes (Bld) [#/Vol] 1.0 {x10E3/uL} Normal 0.7-3.1 [facility] Work Phone: Comment on above: PATIENT WAS FASTINGP ERFORMED BY: [address] [id number] BY: [place] [address]01[address] [facility] [id number] Lymphocytes (Bld) [#/Vol] 1.0 10*3/uL Normal 0.7-3.1 [facility]; [facility] Work Phone: Comment on above: PATIENT WAS FASTINGP ERFORMED BY: [address] [id number] BY: LabMichael [place] 77526[address] [facility] [id number] Lymphocytes Auto #/vol (Bld) 1.0 {x10E3/uL} Normal 0.7-3.1 [facility] Work Phone: Lymphocytes/100 WBC (Bld) 16 % Normal [facility] Work Phone: Comment on above: PATIENT WAS FASTINGP ERFORMED BY: [employer] [address] [id number] BY: LoteritySarah [place] 5108070 [facility] [id number] Lymphocytes/100 WBC Auto (Bld) 16 % Normal [facility] Work Phone: MCH (RBC) [Entitic mass] 30.5 pg Normal 26.6-33.0 [facility] Work Phone: Comment on above: PATIENT WAS FASTINGP ERFORMED BY: [employer] [address] [id number] BY: CustExlin6370 [facility] [id number] MCH Auto Entitic mass (RBC) 30.5 pg Normal 26.6-33.0 [facility] Work Phone: MCHC (RBC) [Mass/Vol] 34.8 g/dL Normal 31.5-35.7 [facility] Work Phone: Comment on above: PATIENT WAS FASTINGP ERFORMED BY: [employer] [address] [id number] BY: [employer] Wyucnj4133 [facility] [id number] MCHC Auto mass conc (RBC) 34.8 g/dL Normal 31.5-35.7 [facility] Work Phone: MCV (RBC) [Entitic vol] 88 fL Normal 79-97 [facility] Work Phone: Comment on above: PATIENT WAS FASTINGP ERFORMED BY: [employer] [address] [id number] BY: LoteritySarah [place] 5108070 [facility] [id number] MCV Auto Entitic volume (RBC) 88 fL Normal 79-97 [facility] Work Phone: Monocytes (Bld) [#/Vol] 1.0 {x10E3/uL} Abnormal 0.1-0.9 [facility] Work Phone: Comment on above: PATIENT WAS FASTINGP ERFORMED BY: Lab[address] [id number] BY: AUDREY LabJuan Sdrnki0204 [facility] [id number] Monocytes (Bld) [#/Vol] 1.0 10*3/uL Abnormal 0.1-0.9 [facility]; [facility] Work Phone: Comment on above: PATIENT WAS FASTINGP ERFORMED BY: [employer] [id number] BY: AUDREY Fu6370 [facility] [id number] Monocytes Auto #/vol (Bld) 1.0 {x10E3/uL} Abnormal 0.1-0.9 [facility] Work Phone: Monocytes/100 WBC (Bld) 15 % Normal [facility] Work Phone: Comment on above: PATIENT WAS FASTINGP ERFORMED BY: [employer] [id number] BY: AUDREY Razalin6370 [facility] [id number] Monocytes/100 WBC Auto (Bld) 15 % Normal [facility] Work Phone: Neutrophils (Bld) [#/Vol] 4.3 {x10E3/uL} Normal 1.4-7.0 [facility] Work Phone: Comment on above: PATIENT WAS FASTINGP ERFORMED BY: AddressReport[address] [id number] BY: AUDREY LabJuan Ctrpnx4615 [facility] [id number] Neutrophils (Bld) [#/Vol] 4.3 10*3/uL Normal 1.4-7.0 [facility]; [facility] Work Phone: Comment on above: PATIENT WAS FASTINGP ERFORMED BY: [address] [id number] BY: [facility] CampusBeyondCoreHunterdon Medical CenterNreevn0172 [facility] [id number] Neutrophils Auto #/vol (Bld) 4.3 {x10E3/uL} Normal 1.4-7.0 [facility] Work Phone: Neutrophils/100 WBC (Bld) 65 % Normal [facility] Work Phone: Comment on above: PATIENT WAS FASTINGP ERFORMED BY: [employer] [id number] BY: [facility] CampusBeyondCoreSarah Ville 5108070 [facility] [id number] Neutrophils/100 WBC Auto (Bld) 65 % Normal [facility] Work Phone: Platelets (Bld) [#/Vol] 225 {x10E3/uL} Normal 150-379 [facility] Work Phone: Comment on above: PATIENT WAS FASTINGP ERFORMED BY: [employer] [id number] BY: [employer] Learning LabSarah [place] 5108070 [facility] [id number] Platelets (Bld) [#/Vol] 225 10*3/uL Normal 150-379 [facility]; [facility] Work Phone: Comment on above: PATIENT WAS FASTINGP ERFORMED BY: [employer] [id number] BY: [employer] Learning LabSarah [place] 5108070 [facility] [id number] Platelets Auto #/vol (Bld) 225 {x10E3/uL} Normal 150-379 [facility] Work Phone: RBC (Bld) [#/Vol] 5.54 {x10E6/uL} Normal 4.14-5.80 [facility] Internal Medicine Work Phone: Comment on above: PATIENT WAS FASTINGP ERFORMED BY: [employer] [id number] BY: LabBeyondCoreHunterdon Medical CenterFphogy7128 [facility] [id number] RBC (Bld) [#/Vol] 5.54 10*6/uL Normal 4.14-5.80 [facility] Healthcareensive [facility]; [facility] Work Phone: Comment on above: PATIENT WAS FASTINGP ERFORMED BY: [employer] [id number] BY: LabBeyondCoreHunterdon Medical CenterEmdnpo20[address] [facility] [facility] [id number] RBC Auto #/vol (Bld) 5.54 {x10E6/uL} Normal 4.14-5.80 [facility] Work Phone: WBC (Bld) [#/Vol] 6.5 {x10E3/uL} Normal 3.4-10.8 [facility] Internal Medicine Work Phone: Comment on above: PATIENT WAS FASTINGP ERFORMED BY: [employer] [id number] BY: [employer] Learning LabSarah [place] 5108070 [facility] [id number] WBC (Bld) [#/Vol] 6.5 10*3/uL Normal 3.4-10.8 [facility] Internal Medicine; [facility] Work Phone: Comment on above: PATIENT WAS FASTINGP ERFORMED BY: [employer] Hruegzywfo[address] [id number] BY: [employer] Learning LabHunterdon Medical CenterRsgjcu5566 [facility] [id number] WBC Auto #/vol (Bld) 6.5 {x10E3/uL} Normal 3.4-10.8 [facility] Work Phone: LIPOPROTEIN, BLD, BY NMR ([id number] 240)Ordered By: Drawing Operator on 12-13-2017 Cholesterol in HDL mass conc 46 mg/dL Normal [facility] Work Phone: Comment on above: PATIENT WAS FASTINGP ERFORMED BY: BN [facility] Hrgutxgfty4968 [facility] [id number] BY: [employer]6370 [facility] [id number] Cholesterol in LDL mass conc 125 mg/dL Abnormal 0-99 [facility] Work Phone: Comment on above: . Optimal < 100 Abov e optimal 100 - 129 Borderline 130 - 159 High 160 - 189 Very high > 189 .LDL-C is inaccurate if patient is non-fasting. PATIENT WAS FASTINGP ERFORMED BY: [employer] [address] [id number] BY: Petpace70 [facility] [id number] Cholesterol mass conc 191 mg/dL Normal 100-199 [facility] Work Phone: Comment on above: PATIENT WAS FASTINGP ERFORMED BY: [employer] [address] [id number] BY: Petpace70 [facility] [id number] Lipoprotein.alpha molar conc 34.1 umol/L Normal [facility] Work Phone: Comment on above: PATIENT WAS FASTINGP ERFORMED BY: [employer] [id number] BY: CustExlin6370 [facility] [id number] Lipoprotein.beta.sub particle Entitic length 20.4 nm Normal [...] were developed and their performance characteristicsdetermined by [employer]. These assays have not been cleared by [employer] Food and Drug Administration. The clinical utility of theselaboratory values have not been fully established. PATIENT WAS FASTINGP ERFORMED BY: [employer] Serviceston1447 [facility] [id number] BY: [employer] Buffer [facility] [id number] Lipoprotein.beta.sub particle molar conc 1704 nmol/L Abnormal Comprehensiv e Internal Medicine Work Phone: Comment on above: Low < 1000 Moderate 1000 - 1299 Borderline-High 1300 - 1599 High 1600 - 2000 Very High > 2000 PATIENT WAS FASTINGP ERFORMED BY: [employer] [id number] BY: [employer] Dtoupy85[address] MondayOne PropertiesAtrium Health Steele Creek [id number] Lipoprotein.beta.sub particle.small molar conc 795 nmol/L Abnormal [facility] Work Phone: Comment on above: PATIENT WAS FASTINGP ERFORMED BY: [employer] [id number] BY: Loterity Buffer [facility] [id number] Triglyceride mass conc 102 mg/dL Normal 0-149 [facility] Work Phone: Comment on above: PATIENT WAS FASTINGP ERFORMED BY: [employer] [id number] BY: [facility] Uwziaz3584 Johnson RoadDublin [place] [id number] METABOLIC PANEL, COMPREHENSI VE ([id number])Ordered By: Drawing Operator on 12-13-2017 Albumin mass conc 4.7 g/dL Normal 3.6-4.8 Compreh ensive Internal Medicine Work Phone: Comment on above: PATIENT WAS FASTINGP ERFORMED BY: Lab[address] [id number] BY: [facility] Hjqyxh9375 Johnson RoadDublin [place] [id number] Albumin/Globulin mass ratio 2.0 {ratio} Normal 1.2-2.2 [facility] Work Phone: Comment on above: PATIENT WAS FASTINGP ERFORMED BY: Lab[address] [id number] BY: [facility] Poqqgp4483 [address] RoadDublin [place] [id number] ALP [Catalytic activity/Vol] 89 U/L Normal 39-117 [facility]; [facility] Work Phone: Comment on above: PATIENT WAS FASTINGP ERFORMED BY: Lab[address] [id number] BY: [facility] Ddrhwq9455 Johnson RoadDublin [place] [id number] ALP enzyme act/vol 89 [iU]/L Normal 39-117 Compre [facility] Internal Medicine Work Phone: Comment on above: PATIENT WAS FASTINGP ERFORMED BY: Lab[address] [id number] BY: [facility] Zwgdas3309 [address] RoadDublin [place] [id number] ALT [Catalytic activity/Vol] 23 U/L Normal 0-44 [facility]; [facility] Work Phone: Comment on above: PATIENT WAS FASTINGP ERFORMED BY: Lab[address] [id number] BY: LabFore[facility] Center6[address] RoadDublin [place] [id number] ALT enzyme act/vol 23 [iU]/L Normal 0-44 [facility] Internal Medicine Work Phone: Comment on above: PATIENT WAS FASTINGP ERFORMED BY: Lab[address] [id number] BY: [facility] Ylzwkh6535 [address] RoadDublin [place] [id number] AST [Catalytic activity/Vol] 26 U/L Normal 0-40 [facility]; [facility] Work Phone: Comment on above: PATIENT WAS FASTINGP ERFORMED BY: [address] [id number] BY: LabForest [facility] Center6[address] RoadDublin [place] [id number] AST enzyme act/vol 26 [iU]/L Normal 0-40 [facility] Internal Medicine Work Phone: Comment on above: PATIENT WAS FASTINGP ERFORMED BY: [address] [id number] BY: LabMichael Ville 7752670 Johnson RoadDuke Regional Hospitalin [place] [id number] Bilirubin mass conc 1.0 mg/dL Normal 0.0-1.2 Compr [facility] Internal Medicine Work Phone: Comment on above: PATIENT WAS FASTINGP ERFORMED BY: [address] [id number] BY: LabForest [facility] Center[address] [facility]in [place] [id number] Calcium mass conc 9.8 mg/dL Normal 8.6-10.2 [facility] Internal Medicine Work Phone: Comment on above: PATIENT WAS FASTINGP ERFORMED BY: [address] [id number] BY: [facility] Sghnzv0541 [address] RoadDublin [place] [id number] Chloride molar conc 101 mmol/L Normal 96-106 Compr ensive Internal Medicine Work Phone: Comment on above: PATIENT WAS FASTINGP ERFORMED BY: BN [facility] [address] [id number] BY: CB [facility] Zvbrbs2198 Johnson RoadDublin [place] [id number] CO2 molar conc 20 mmol/L Normal 20-29 Comprehens champ Internal Medicine Work Phone: Comment on above: PATIENT WAS FASTINGP ERFORMED BY: BN [facility] Pbpznqsvbg8[address] [id number] BY: CB [facility] Lzwlbm5516 [address] RoadDublin [place] [id number] Creatinine mass conc 1.08 mg/dL Normal 0.76-1.27 [facility] Work Phone: Comment on above: PATIENT WAS FASTINGP ERFORMED BY: BN [facility] [address] [id number] BY: CB [facility] Cczzsf0069 Johnson RoadDuke Regional Hospitalin [place] [id number] GFR/1.73 sq M predicted among blacks CKD-EPI vol rate/area (S/P/Bld) 82 mL/min/1.73 Normal Comprehensiv e Internal Medicine Work Phone: Comment on above: PATIENT WAS FASTINGP ERFORMED BY: BN [facility] [address] [id number] BY: CB [facility] Ujipqb8772 [address] RoadDuin [place] [id number] GFR/1.73 sq M predicted among non-blacks CKD-EPI vol rate/area (S/P/Bld) 71 mL/min/1.73 Normal [facility] Work Phone: Comment on above: PATIENT WAS FASTINGP ERFORMED BY: BN [facility] Dcjhwzlxou45[address] [id number] BY: CB [facility] Mhkgpz7915 [address] RoadDublin [place] [id number] Globulin (S) [Mass/Vol] 2.3 g/dL Normal 1.5-4.5 [facility] Work Phone: Comment on above: PATIENT WAS FASTINGP ERFORMED BY: LabCo[address] [id number] BY: AUDREY [facility] Wsouhv[address] [facility] [id number] Globulin Calculated mass conc (S) 2.3 g/dL Normal 1.5-4.5 [facility] Work Phone: Glucose mass conc 98 mg/dL Normal 65-99 Compreh ensive Internal Medicine Work Phone: Comment on above: PATIENT WAS FASTINGP ERFORMED BY: LabCo[address] [id number] BY: AUDREY [facility] Ucotoa4440 [facility] [id number] Potassium molar conc 4.6 mmol/L Normal 3.5-5.2 Comp rehensive Internal Medicine Work Phone: Comment on above: PATIENT WAS FASTINGP ERFORMED BY: LabCo[address] [id number] BY: AUDREY [facility] Oodnbl380[address] [facility] [id number] Protein mass conc 7.0 g/dL Normal 6.0-8.5 Compreh ensive Internal Medicine Work Phone: Comment on above: PATIENT WAS FASTINGP ERFORMED BY: Lab[address] [id number] BY: AUDREY [facility] Gzhiij5[address] [facility] [id number] Sodium molar conc 140 mmol/L Normal 134-144 Compreh ensive Internal Medicine Work Phone: Comment on above: PATIENT WAS FASTINGP ERFORMED BY: LabCo[address] [id number] BY: AUDREY [facility] Efzqpo7[address] [facility] [id number] Urea nitrogen mass conc 15 mg/dL Normal 8-27 [facility] Work Phone: Comment on above: PATIENT WAS FASTINGP ERFORMED BY: LabCoShane Ville 575247 [facility] [id number] BY: [facility] Vnoiqc4935 [address] [facility] [id number] Urea nitrogen/Creatinine mass ratio 14 mg/mg Normal 10-24 [facility] Work Phone: Comment on above: PATIENT WAS FASTINGP ERFORMED BY: [facility] [address] [id number] BY: [facility] Cgotyu0149 [facility] [id number] MICROALBUMINOrdered By: Syst em Second Officer on 12-13-2017 Albumin DL <= 20 mg/L mass conc (U) 9.0 ug/mL Normal [facility] Work Phone: Comment on above: PATIENT WAS FASTINGP ERFORMED BY: LabCo[address] [id number] BY: [facility] Lyvpib9802 [facility] [id number] Albumin/Creatinine mass ratio (U) 6.4 {mg/g_creat} Normal 0.0-30.0 [facility] Work Phone: Comment on above: PATIENT WAS FASTINGP ERFORMED BY: [facility] [address] [id number] BY: [facility] Fpsdia2745 [facility] [id number] Creatinine mass conc (U) 140.0 mg/dL Normal [facility] Work Phone: Comment on above: PATIENT WAS FASTINGP ERFORMED BY: Lab[address] [id number] BY: [facility] Pemeqi2741 [facility] [id number] Microscopic ExaminationOrder ed By: Drawing Operator on 12-13-2017 Bacteria LM.HPF #/area (Urine sed) Few Normal [facility] Work Phone: Comment on above: PATIENT WAS FASTINGP ERFORMED BY: [address] [id number] BY: [facility] Hqjqdt6001 [address] RoadDublin [place] [id number] Epithelial cells LM.HPF #/area (Urine sed) None seen Normal 0 - 10 [facility] Work Phone: Comment on above: PATIENT WAS FASTINGP ERFORMED BY: [address] [id number] BY: [facility] Efqxur7576 [address] RoadDublin [place] [id number] Mucus LM Ql (Urine sed) Present Normal [facility] Work Phone: Mucus Ql (Urine sed) Present Normal Comp rehensive Internal Medicine Work Phone: Comment on above: PATIENT WAS FASTINGP ERFORMED BY: [address] [id number] BY: [facility] Dcndmo7540 [address] RoadDublin [place] [id number] RBC LM.HPF #/area (Urine sed) None seen Normal 0 - 2 [facility] Work Phone: Comment on above: PATIENT WAS FASTINGP ERFORMED BY: [address] [id number] BY: [facility] Lamvxb7141 [address] RoadDublin [place] [id number] WBC LM.HPF #/area (Urine sed) 0-5 Normal 0 - 5 [facility] Work Phone: Comment on above: PATIENT WAS FASTINGP ERFORMED BY: [address] [id number] BY: [facility] Duxiax2650 [address] RoadDublin [place] [id number] TSH ([id number])Ordered By: Marvin grace Second Officer on 12-13-2017 Thyrotropin Qn 2.050 {uIU/mL} Normal 0.450-4.50 0 [facility] Work Phone: Comment on above: PATIENT WAS FASTINGP ERFORMED BY: LabCo[address] [id number] BY: AUDREY [facility] Fgplas4590 [address] RoadDublin [place] [id number] URINALYSIS, W/ MICRO ([id number]) Ordered By: Drawing Operator on 12-13-2017 Appearance Nom (U) Clear Normal Compre hensive Internal Medicine Work Phone: Comment on above: PATIENT WAS FASTINGP ERFORMED BY: LabCo[address] [id number] BY: AUDREY [facility] Vzubrw4020 [address] RoadDublin [place] [id number] Bilirubin Ql (U) Negative Normal Comprehe nsive Internal Medicine Work Phone: Comment on above: PATIENT WAS FASTINGP ERFORMED BY: [address] [id number] BY: AUDREY [facility] Bklswo2280 [address] RoadDublin [place] [id number] Bilirubin Ql (U) Negative Normal Comprehe nsive Internal Medicine; [facility] Work Phone: Comment on above: PATIENT WAS FASTINGP ERFORMED BY: [address] [id number] BY: AUDREY [facility] Fionqc8994 [address] RoadDublin [place] [id number] Color Nom (U) Yellow Normal Comprehensi ve Internal Medicine Work Phone: Comment on above: PATIENT WAS FASTINGP ERFORMED BY: Lab[address] [id number] BY: AUDREY [facility] Hbgokq0249 [address] RoadDublin [place] [id number] Glucose Ql (U) Negative Normal Comprehens champ Internal Medicine Work Phone: Comment on above: PATIENT WAS FASTINGP ERFORMED BY: LabCo[address] [id number] BY: AUDREY [facility] Kdkmha1897 [address] RoadDublin [place] [id number] Glucose Ql (U) Negative Normal Comprehens champ Internal Medicine; [facility] Work Phone: Comment on above: PATIENT WAS FASTINGP ERFORMED BY: LabCo[address] [id number] BY: AUDREY [facility] Qraobt3471 [address] RoadDublin [place] [id number] Hemoglobin Ql (U) Negative Normal Compreh ensive Internal Medicine Work Phone: Comment on above: PATIENT WAS FASTINGP ERFORMED BY: [facility] [address] [id number] BY: AUDREY [facility] Skoaoy4223 [address] RoadDublin [place] [id number] Hemoglobin Ql (U) Negative Normal Compreh ensive Internal Medicine; [facility] Work Phone: Comment on above: PATIENT WAS FASTINGP ERFORMED BY: Lab[address] [id number] BY: [facility] Skrjjh9191 [address] RoadDublin [place] [id number] Hemoglobin Test strip Ql (U) Negative Normal [facility] Work Phone: Ketones Ql (U) Negative Normal Comprehens champ Internal Medicine Work Phone: Comment on above: PATIENT WAS FASTINGP ERFORMED BY: [address] [id number] BY: [facility] Iggoet8043 [address] RoadDublin [place] [id number] Ketones Ql (U) Negative Normal Comprehens champ Internal Medicine; [facility] Work Phone: Comment on above: PATIENT WAS FASTINGP ERFORMED BY: Lab[address] [id number] BY: [facility] Wngefl2744 [address] RoadDublin [place] [id number] Leukocyte esterase Test strip Ql (U) Negative Normal [facility] Work Phone: Comment on above: PATIENT WAS FASTINGP ERFORMED BY: [address] [id number] BY: AUDREY [facility] Zstjck3920 [address] RoadDublin [place] [id number] Leukocyte esterase Test strip Ql (U) Negative Normal [facility]; [facility] Work Phone: Comment on above: PATIENT WAS FASTINGP ERFORMED BY: [address] [id number] BY: [facility] Tjfper7669 [address] RoadDublin [place] [id number] Microscopic observation LM Nom (Urine sed) MICRON Normal [facility] Work Phone: Comment on above: Microscopic follows if indicated. PATIENT WAS FASTINGP ERFORMED BY: [address] [id number] BY: [facility] Lcclpq6667 Jonh[address] RoadDublin [place] [id number] Microscopic observation LM Nom (Urine sed) See below: Normal [facility] Work Phone: Comment on above: Microscopic was paresh cated and was performed. PATIENT WAS FASTINGP ERFORMED BY: [address] [id number] BY: LabFore[facility] Center6[address] RoadDublin [place] [id number] Nitrite Ql (U) Negative Normal Comprehens champ Internal Medicine Work Phone: Comment on above: PATIENT WAS FASTINGP ERFORMED BY: [address] [id number] BY: [facility] Rvymjd8377 [address] RoadDublin [place] [id number] Nitrite Ql (U) Negative Normal Comprehens champ Internal Medicine; [facility] Work Phone: Comment on above: PATIENT WAS FASTINGP ERFORMED BY: [address] [id number] BY: [facility] Pmxxyo0765 [address] RoadDublin [place] [id number] Nitrite Test strip Ql (U) Negative Normal [facility] Work Phone: pH (U) 5.0 [pH] Normal 5.0-7.5 [facility] Work Phone: Comment on above: PATIENT WAS FASTINGP ERFORMED BY: [employer] [id number] BY: AUDREY LabJuan Xkaeqh3950 [address] RoadDublin [place] [id number] pH Test strip (U) 5.0 [pH] Normal 5.0-7.5 Compreh ensive Internal Medicine Work Phone: Protein Ql (U) Negative Normal Comprehens champ Internal Medicine Work Phone: Comment on above: PATIENT WAS FASTINGP ERFORMED BY: [employer] [id number] BY: AUDREY [employer] Bnenjy1417 [address] RoadDuin [place] [id number] Protein Ql (U) Negative Normal Comprehens champ Internal Medicine; [facility] Work Phone: Comment on above: PATIENT WAS FASTINGP ERFORMED BY: [employer] [id number] BY: AUDREY [facility] [employer] Awmcym0178 [address] RoadDublin [place] [id number] Protein Test strip Ql (U) Negative Normal [facility] Work Phone: Specific gravity Relative Density (U) 1.017 1 Normal 1.005-1.03 0 [facility] Work Phone: Comment on above: PATIENT WAS FASTINGP ERFORMED BY: [employer] [id number] BY: AUDREY [facility] [employer] Ckgtit0978 [address] RoadDublin [place] [id number] Urobilinogen (U) [Mass/Vol] 0.2 mg/dL Normal 0.2-1.0 [facility]; [facility] Work Phone: Comment on above: PATIENT WAS FASTINGP ERFORMED BY: Lab[facility]1447 [facility] [id number] BY: LabFore[facility]6370 [facility] [id number] Urobilinogen Test strip mass conc (U) 0.2 mg/dL Normal 0.2-1.0 [facility] Internal Medicine Work Phone: Comment on above: PATIENT WAS FASTINGP ERFORMED BY: LabDavid Ville 218787 [facility] [id number] BY: [place] 9801370 [facility] [id number] PSA,Total- DiagnosticOrdered By: Drawing Operator on 04-08-2017 PSA, DIAGNOSTIC 1.85 ng/mL Normal 0.0-4.0 [facility] Internal Medicine Work Phone: Comment on above: [...] should be carriedout to confirm baseline values. [facility] Djiihunalw6508 [facility] [place], [address] ; Sel[place] CBC W/AUTO DIFF WBC ([id number])O rdered By: Drawing Operator on 03-01-2017 Basophils (Bld) [#/Vol] 0.0 {x10E3/uL} Normal 0.0-0.2 [facility] Work Phone: Comment on above: PATIENT WAS FASTINGP ERFORMED BY: [facility]6370 [facility] [id number] Basophils (Bld) [#/Vol] 0.0 10*3/uL Normal 0.0-0.2 [facility]; [facility] Work Phone: Comment on above: PATIENT WAS FASTINGP ERFORMED BY: [place] [address]01370 [facility] [id number] Basophils Auto #/vol (Bld) 0.0 {x10E3/uL} Normal 0.0-0.2 [facility] Work Phone: Basophils/100 WBC (Bld) 1 % Normal [facility] Work Phone: Comment on above: PATIENT WAS FASTINGP ERFORMED BY: [address] [id number] Basophils/100 WBC Auto (Bld) 1 % Normal [facility] Work Phone: Eosinophils (Bld) [#/Vol] 0.1 {x10E3/uL} Normal 0.0-0.4 [facility] Work Phone: Comment on above: PATIENT WAS FASTINGP ERFORMED BY: [address] [id number] Eosinophils (Bld) [#/Vol] 0.1 10*3/uL Normal 0.0-0.4 [facility]; [facility] Work Phone: Comment on above: PATIENT WAS FASTINGP ERFORMED BY: [address] [id number] Eosinophils Auto #/vol (Bld) 0.1 {x10E3/uL} Normal 0.0-0.4 [facility] Work Phone: Eosinophils/100 WBC (Bld) 2 % Normal [facility] Work Phone: Comment on above: PATIENT WAS FASTINGP ERFORMED BY: [address] [id number] Eosinophils/100 WBC Auto (Bld) 2 % Normal [facility] Work Phone: Erythrocyte distribution width (RBC) [Ratio] 13.3 % Normal 12.3-15.4 [facility] Work Phone: Comment on above: PATIENT WAS FASTINGP ERFORMED BY: AUDREY Fu6370 [facility] [id number] Erythrocyte distribution width Auto Ratio (RBC) 13.3 % Normal 12.3-15.4 [facility] Work Phone: Hematocrit (Bld) [Volume fraction] 45.9 % Normal 37.5-51.0 [facility] Work Phone: Comment on above: PATIENT WAS FASTINGP ERFORMED BY: AUDREY Razalin6370 [facility] [id number] Hematocrit Auto Volume Fraction (Bld) 45.9 % Normal 37.5-51.0 [facility] Work Phone: Hemoglobin mass conc (Bld) 16.2 g/dL Normal 12.6-17.7 [facility] Work Phone: Comment on above: Effective March 04, 2017 the reference interval for Hemoglobin MALES only will be changing to: Males 13-15 years: 12.6 - 17.7 Males >15 years: 13.0 - 17.7 PATIENT WAS FASTINGP ERFORMED BY: AUDREY Razalin6370 [facility] [id number] Immature granulocytes #/vol (Bld) 0.0 {x10E3/uL} Normal 0.0-0.1 [facility] Work Phone: Comment on above: PATIENT WAS FASTINGP ERFORMED BY: AUDREY Razalin6370 [facility] [id number] Immature granulocytes (Bld) [#/Vol] 0.0 10*3/uL Normal 0.0-0.1 [facility]; [facility] Work Phone: Comment on above: PATIENT WAS FASTINGP ERFORMED BY: AUDREY Razalin6370 [facility] [id number] Immature granulocytes/100 WBC (Bld) 0 % Normal [facility] Work Phone: Comment on above: PATIENT WAS FASTINGP ERFORMED BY: [facility]6370 [facility] [id number] Lymphocytes (Bld) [#/Vol] 1.7 {x10E3/uL} Normal 0.7-3.1 [facility] Work Phone: Comment on above: PATIENT WAS FASTINGP ERFORMED BY: [place] [address] [facility] [id number] Lymphocytes (Bld) [#/Vol] 1.7 10*3/uL Normal 0.7-3.1 [facility]; [facility] Work Phone: Comment on above: PATIENT WAS FASTINGP ERFORMED BY: [place] [address]01370 [facility] [id number] Lymphocytes Auto #/vol (Bld) 1.7 {x10E3/uL} Normal 0.7-3.1 [facility] Work Phone: Lymphocytes/100 WBC (Bld) 29 % Normal [facility] Work Phone: Comment on above: PATIENT WAS FASTINGP ERFORMED BY: [place] [id number] [facility] [id number] Lymphocytes/100 WBC Auto (Bld) 29 % Normal [facility] Work Phone: MCH (RBC) [Entitic mass] 30.1 pg Normal 26.6-33.0 [facility] Work Phone: Comment on above: PATIENT WAS FASTINGP ERFORMED BY: [place] [id number] [facility] [id number] MCH Auto Entitic mass (RBC) 30.1 pg Normal 26.6-33.0 [facility] Work Phone: MCHC (RBC) [Mass/Vol] 35.3 g/dL Normal 31.5-35.7 [facility] Work Phone: Comment on above: PATIENT WAS FASTINGP ERFORMED BY: [place] [id number] [facility] [id number] MCHC Auto mass conc (RBC) 35.3 g/dL Normal 31.5-35.7 [facility] Work Phone: MCV (RBC) [Entitic vol] 85 fL Normal 79-97 [facility] Work Phone: Comment on above: PATIENT WAS FASTINGP ERFORMED BY: [facility]6370 [facility]in [place] [id number] MCV Auto Entitic volume (RBC) 85 fL Normal 79-97 [facility] Work Phone: Monocytes (Bld) [#/Vol] 0.6 {x10E3/uL} Normal 0.1-0.9 [facility] Work Phone: Comment on above: PATIENT WAS FASTINGP ERFORMED BY: LabMichael Ville [id number] [facility] [id number] Monocytes (Bld) [#/Vol] 0.6 10*3/uL Normal 0.1-0.9 [facility]; [facility] Work Phone: Comment on above: PATIENT WAS FASTINGP ERFORMED BY: [facility]6370 [facility] [id number] Monocytes Auto #/vol (Bld) 0.6 {x10E3/uL} Normal 0.1-0.9 [facility] Work Phone: Monocytes/100 WBC (Bld) 10 % Normal [facility] Work Phone: Comment on above: PATIENT WAS FASTINGP ERFORMED BY: [facility]6370 [facility] [id number] Monocytes/100 WBC Auto (Bld) 10 % Normal [facility] Work Phone: Neutrophils (Bld) [#/Vol] 3.3 {x10E3/uL} Normal 1.4-7.0 [facility] Work Phone: Comment on above: PATIENT WAS FASTINGP ERFORMED BY: [facility]6370 [facility] [id number] Neutrophils (Bld) [#/Vol] 3.3 10*3/uL Normal 1.4-7.0 [facility]; [facility] Work Phone: Comment on above: PATIENT WAS FASTINGP ERFORMED BY: AUDREY Fu[address] RoadDublin [place] [id number] Neutrophils Auto #/vol (Bld) 3.3 {x10E3/uL} Normal 1.4-7.0 [facility] Work Phone: Neutrophils/100 WBC (Bld) 58 % Normal [facility] Work Phone: Comment on above: PATIENT WAS FASTINGP ERFORMED BY: AUDREY Fu[address] RoadDublin [place] [id number] Neutrophils/100 WBC Auto (Bld) 58 % Normal [facility] Work Phone: Platelets (Bld) [#/Vol] 262 {x10E3/uL} Normal 150-379 [facility] Work Phone: Comment on above: PATIENT WAS FASTINGP ERFORMED BY: AUDREY Fu6[address] RoadDublin [place] [id number] Platelets (Bld) [#/Vol] 262 10*3/uL Normal 150-379 [facility]; [facility] Work Phone: Comment on above: PATIENT WAS FASTINGP ERFORMED BY: AUDREY Razalin[address] RoadDublin [place] [id number] Platelets Auto #/vol (Bld) 262 {x10E3/uL} Normal 150-379 [facility] Work Phone: RBC (Bld) [#/Vol] 5.38 {x10E6/uL} Normal 4.14-5.80 [facility] Internal Medicine Work Phone: Comment on above: PATIENT WAS FASTINGP ERFORMED BY: AUDREY LabZacarias RazaSftexa1056 [address] RoadDublin [place] [id number] RBC (Bld) [#/Vol] 5.38 10*6/uL Normal 4.14-5.80 [facility] Internal Medicine; [facility] Work Phone: Comment on above: PATIENT WAS FASTINGP ERFORMED BY: AUDREY Fu6370 [facility] [id number] RBC Auto #/vol (Bld) 5.38 {x10E6/uL} Normal 4.14-5.80 [facility] Work Phone: WBC (Bld) [#/Vol] 5.8 {x10E3/uL} Normal 3.4-10.8 [facility] prehensive Internal Medicine Work Phone: Comment on above: PATIENT WAS FASTINGP ERFORMED BY: LabCoHunterdon Medical CenterGixglz8059 [facility] [id number] WBC (Bld) [#/Vol] 5.8 10*3/uL Normal 3.4-10.8 [facility] Internal Medicine; [facility] Work Phone: Comment on above: PATIENT WAS FASTINGP ERFORMED BY: AUDREY [facility]6370 [facility] [id number] WBC Auto #/vol (Bld) 5.8 {x10E3/uL} Normal 3.4-10.8 [facility] Work Phone: LIPID PANEL ([id number])Ordered B y: Drawing Operator on 03-01-2017 Cholesterol in HDL mass conc 49 mg/dL Normal [facility] Work Phone: Comment on above: PATIENT WAS FASTINGP ERFORMED BY: AUDREY [facility]University [facility] Ikovzw6103 [facility] [id number] Cholesterol in LDL mass conc 124 mg/dL Abnormal 0-99 [facility] Work Phone: Comment on above: PATIENT WAS FASTINGP ERFORMED BY: [facility]University [facility] Ydcpvd3736 [facility] [id number] Cholesterol in LDL/Cholesterol in HDL mass ratio 2.5 {ratio_units} Normal 0.0-3.6 [facility] Work Phone: Comment on above: LDL/HDL Ratio Men Wo men 1/2 Avg.Risk 1.0 1.5 Avg.Risk 3.6 3.2 2X Avg.Risk 6.2 5.0 3X Avg.Risk 8.0 6.1 PATIENT WAS FASTINGP ERFORMED BY: AUDREY Kacimadeline RazaZisfpb5499 [address] RoadDublin [place] [id number] Cholesterol in VLDL mass conc 16 mg/dL Normal 5-40 [facility] Work Phone: Comment on above: PATIENT WAS FASTINGP ERFORMED BY: AUDREY AlejoZacarias RazaOoyvoa8[address] RoadDublin [place] [id number] Cholesterol mass conc 189 mg/dL Normal 100-199 [facility] Work Phone: Comment on above: PATIENT WAS FASTINGP ERFORMED BY: AUDREY LabComadeline RazaKxkiie73[address] RoadDublin [place] [id number] Triglyceride mass conc 82 mg/dL Normal 0-149 [facility] Work Phone: Comment on above: PATIENT WAS FASTINGP ERFORMED BY: AUDREY Razalin[address] [facility]in [place] [id number] METABOLIC PANEL, COMPREHENSI VE ([id number])Ordered By: Drawing Operator on 03-01-2017 Albumin mass conc 4.6 g/dL Normal 3.6-4.8 Compreh ensive Internal Medicine Work Phone: Comment on above: PATIENT WAS FASTINGP ERFORMED BY: AUDREY Kacimadeline RazaElewad[address] [facility]in [place] [id number] Albumin/Globulin mass ratio 2.2 {ratio} Normal 1.2-2.2 [facility] Work Phone: Comment on above: PATIENT WAS FASTINGP ERFORMED BY: AUDREY LabJuan Zwbjrp[address] [facility]in [place] [id number] ALP [Catalytic activity/Vol] 77 U/L Normal 39-117 [facility]; [facility] Work Phone: Comment on above: PATIENT WAS FASTINGP ERFORMED BY: AUDREY LabComadeline RazaZiuqgg[address] [facility] Centerbl[place] [id number] ALP enzyme act/vol 77 [iU]/L Normal 39-117 Compre hensive Internal Medicine Work Phone: Comment on above: PATIENT WAS FASTINGP ERFORMED BY: AUDREY LabCo Cixtas[address] [facility] Centerblin [place] [id number] ALT [Catalytic activity/Vol] 20 U/L Normal 0-44 [facility]; [facility] Work Phone: Comment on above: PATIENT WAS FASTINGP ERFORMED BY: CB [facility] Dzakvz4[address] RoadDublin [place] [id number] ALT enzyme act/vol 20 [iU]/L Normal 0-44 [facility] Internal Medicine Work Phone: Comment on above: PATIENT WAS FASTINGP ERFORMED BY: CB [facility] Bvfttw7072 [address] RoadDublin [place] [id number] AST [Catalytic activity/Vol] 20 U/L Normal 0-40 [facility]; [facility] Work Phone: Comment on above: PATIENT WAS FASTINGP ERFORMED BY: CB [facility] Egzubs2[address] RoadDublin [place] [id number] AST enzyme act/vol 20 [iU]/L Normal 0-40 [facility] Internal Medicine Work Phone: Comment on above: PATIENT WAS FASTINGP ERFORMED BY: AUDREY [facility] Tcfcuv6[address] RoadDublin [place] [id number] Bilirubin mass conc 1.2 mg/dL Normal 0.0-1.2 Compr ensive Internal Medicine Work Phone: Comment on above: PATIENT WAS FASTINGP ERFORMED BY: CB [facility] Lvjdqc4033 [address] RoadDublin [place] [id number] Calcium mass conc 9.8 mg/dL Normal 8.6-10.2 Compreh ensive Internal Medicine Work Phone: Comment on above: PATIENT WAS FASTINGP ERFORMED BY: CB [facility] Lzvjdp9476 [address] RoadDublin [place] [id number] Chloride molar conc 101 mmol/L Normal 96-106 Compr ehensive Internal Medicine Work Phone: Comment on above: PATIENT WAS FASTINGP ERFORMED BY: CB [facility] Ovvcsb3389 [address] RoadDublin [place] [id number] CO2 molar conc 23 mmol/L Normal 18-29 Comprehens champ Internal Medicine Work Phone: Comment on above: PATIENT WAS FASTINGP ERFORMED BY: AUDREY LabCo Ixtgqf[address] [facility]in [place] [id number] Creatinine mass conc 1.10 mg/dL Normal 0.76-1.27 Comp rehensive Internal Medicine Work Phone: Comment on above: PATIENT WAS FASTINGP ERFORMED BY: LabCo Wkndvl[address] [facility]in [place] [id number] GFR/1.73 sq M predicted among blacks CKD-EPI vol rate/area (S/P/Bld) 81 mL/min/1.73 Normal Comprehensiv e Internal Medicine Work Phone: Comment on above: PATIENT WAS FASTINGP ERFORMED BY: LabCo Gqmrrs[address] [facility] [id number] GFR/1.73 sq M predicted among non-blacks CKD-EPI vol rate/area (S/P/Bld) 70 mL/min/1.73 Normal [facility] Work Phone: Comment on above: PATIENT WAS FASTINGP ERFORMED BY: LabCo Nfomus[address] [facility] [id number] Globulin (S) [Mass/Vol] 2.1 g/dL Normal 1.5-4.5 [facility] Work Phone: Comment on above: PATIENT WAS FASTINGP ERFORMED BY: LabCo Byzqsm[address] [facility] [id number] Globulin Calculated mass conc (S) 2.1 g/dL Normal 1.5-4.5 [facility] Work Phone: Glucose mass conc 88 mg/dL Normal 65-99 [facility] Work Phone: Comment on above: PATIENT WAS FASTINGP ERFORMED BY: [facility] Pndxir[address] [facility]in [place] [id number] Potassium molar conc 4.7 mmol/L Normal 3.5-5.2 Comp [facility] campusensive Internal [facility] Work Phone: Comment on above: PATIENT WAS FASTINGP ERFORMED BY: LabCo Okiaii[address] [facility] [id number] Protein mass conc 6.7 g/dL Normal 6.0-8.5 Compreh ensive Internal Medicine Work Phone: Comment on above: PATIENT WAS FASTINGP ERFORMED BY: AUDREY Corwin Fu[address] [facility]bl[facility] [place] [id number] Sodium molar conc 140 mmol/L Normal 134-144 Compreh ensive Internal Medicine Work Phone: Comment on above: PATIENT WAS FASTINGP ERFORMED BY: AUDREY LabCo Wtibmz[address] [facility]in [place] [id number] Urea nitrogen mass conc 20 mg/dL Normal 8-27 [facility] Work Phone: Comment on above: PATIENT WAS FASTINGP ERFORMED BY: AUDREY Kacimadeline RazaBwiphd[address] [facility] [id number] Urea nitrogen/Creatinine mass ratio 18 mg/mg Normal 10-24 [facility] Work Phone: Comment on above: PATIENT WAS FASTINGP ERFORMED BY: AUDREY [facility]University [facility] Nyfjiy[address] [facility]in [place] [id number] MICROALBUMINOrdered By: Syst em Second Officer on 03-01-2017 Albumin DL <= 20 mg/L mass conc (U) 17.3 ug/mL Normal [facility] Work Phone: Comment on above: PATIENT WAS FASTINGP ERFORMED BY: AUDREY [facility] Szpebj[address] [facility]in [place] [id number] Albumin/Creatinine mass ratio (U) 7.6 {mg/g_creat} Normal 0.0-30.0 [facility] Work Phone: Comment on above: PATIENT WAS FASTINGP ERFORMED BY: AUDREY [facility] Kqeowd2570 [address] RoadDublin [place] [id number] Creatinine mass conc (U) 228.3 mg/dL Normal [facility] Work Phone: Comment on above: PATIENT WAS FASTINGP ERFORMED BY: AUDREY LabCo Pioowb[address] [facility]bl[facility] [place] [id number] Microscopic ExaminationOrder ed By: Drawing Operator on 03-01-2017 Bacteria LM.HPF #/area (Urine sed) None seen Normal [facility] Work Phone: Comment on above: PATIENT WAS FASTINGP ERFORMED BY: AUDREY [facility] Bgvyjx7994 [address] RoadDublin [place] [id number] Casts LM Nom (Urine sed) Hyaline casts Normal [facility] Work Phone: Comment on above: PATIENT WAS FASTINGP ERFORMED BY: AUDREY [facility] Aarcps7[address] RoadDublin [place] [id number] Casts LM Ql (Urine sed) Present Abnormal [facility] Work Phone: Comment on above: PATIENT WAS FASTINGP ERFORMED BY: AUDREY [facility] Taavja6259 [address] RoadDublin [place] [id number] Epithelial cells LM.HPF #/area (Urine sed) 0-10 Normal 0 - 10 [facility] Work Phone: Comment on above: PATIENT WAS FASTINGP ERFORMED BY: AUDREY [facility] Xvgtrc8110 [address] RoadDublin [place] [id number] Mucus LM Ql (Urine sed) Present Normal [facility] Work Phone: Mucus Ql (Urine sed) Present Normal Comp rehensive Internal Medicine Work Phone: Comment on above: PATIENT WAS FASTINGP ERFORMED BY: AUDREY [facility] Nszlnp4728 [address] RoadDublin [place] [id number] RBC LM.HPF #/area (Urine sed) 0-2 Normal 0 - 2 [facility] Work Phone: Comment on above: PATIENT WAS FASTINGP ERFORMED BY: AUDREY [facility] Wohqbd5292 [address] RoadDublin [place] [id number] WBC LM.HPF #/area (Urine sed) 0-5 Normal 0 - 5 [facility] Work Phone: Comment on above: PATIENT WAS FASTINGP ERFORMED BY: CB [facility] Orvabk5918 [address] RoadDublin [place] [id number] URINALYSIS, W/ MICRO ([id number]) Ordered By: Drawing Operator on 03-01-2017 Appearance Nom (U) Clear Normal Compre hensive Internal Medicine Work Phone: Comment on above: PATIENT WAS FASTINGP ERFORMED BY: AUDREY [facility] Dhxarh6607 [address] RoadDublin [place] [id number] Bilirubin Ql (U) Negative Normal Comprehe nsive Internal Medicine Work Phone: Comment on above: PATIENT WAS FASTINGP ERFORMED BY: AUDREY [facility] Rozbrc9625 [address] RoadDublin [place] [id number] Bilirubin Ql (U) Negative Normal Comprehe nsive Internal Medicine; [facility] Work Phone: Comment on above: PATIENT WAS FASTINGP ERFORMED BY: AUDREY [facility] Mebjgi0604 [address] RoadDublin [place] [id number] Color Nom (U) Yellow Normal Comprehensi ve Internal Medicine Work Phone: Comment on above: PATIENT WAS FASTINGP ERFORMED BY: AUDREY [facility] Hxqwcq3485 [address] RoadDublin [place] [id number] Glucose Ql (U) Negative Normal Comprehens champ Internal Medicine Work Phone: Comment on above: PATIENT WAS FASTINGP ERFORMED BY: AUDREY [facility] Ppqqni1097 [address] RoadDublin [place] [id number] Glucose Ql (U) Negative Normal Comprehens champ [facility]; [facility] Work Phone: Comment on above: PATIENT WAS FASTINGP ERFORMED BY: AUDREY [facility] Nlkmnr1727 [address] RoadDublin [place] [id number] Hemoglobin Ql (U) Negative Normal Compreh ensive Internal Medicine Work Phone: Comment on above: PATIENT WAS FASTINGP ERFORMED BY: AUDREY [facility] Tkxtrw1653 [address] RoadDublin [place] [id number] Hemoglobin Ql (U) Negative Normal Compreh ensive Internal Medicine; [facility] Work Phone: Comment on above: PATIENT WAS FASTINGP ERFORMED BY: AUDREY [facility] Ivxzco5154 [address] RoadDublin [place] [id number] Hemoglobin Test strip Ql (U) Negative Normal [facility] Work Phone: Ketones Ql (U) Trace Abnormal Comprehens champ Internal Medicine Work Phone: Comment on above: PATIENT WAS FASTINGP ERFORMED BY: AUDREY Fu6[address] [place] [id number] Leukocyte esterase Test strip Ql (U) Negative Normal [facility] Work Phone: Comment on above: PATIENT WAS FASTINGP ERFORMED BY: AUDREY Razalin6[address] [place] [id number] Leukocyte esterase Test strip Ql (U) Negative Normal [facility]; [facility] Work Phone: Comment on above: PATIENT WAS FASTINGP ERFORMED BY: AUDREY Fu[address] [place] [id number] Microscopic observation LM Nom (Urine sed) See below: Normal [facility] Work Phone: Comment on above: Microscopic was paresh cated and was performed. PATIENT WAS FASTINGP ERFORMED BY: AUDREY Razalin6[address] [place] [id number] Microscopic observation LM Nom (Urine sed) MICRON Normal [facility] Work Phone: Comment on above: Microscopic follows if indicated. PATIENT WAS FASTINGP ERFORMED BY: AUDREY Razalin6[address] [place] [id number] Nitrite Ql (U) Negative Normal Comprehens champ Internal Medicine Work Phone: Comment on above: PATIENT WAS FASTINGP ERFORMED BY: AUDREY Razalin6[address] [place] [id number] Nitrite Ql (U) Negative Normal Comprehens champ [facility]; [facility] Work Phone: Comment on above: PATIENT WAS FASTINGP ERFORMED BY: AUDREY LabZacarias RazaHzkdkd1800 [address] RoadDublin [place] [id number] Nitrite Test strip Ql (U) Negative Normal [facility] Work Phone: pH (U) 5.0 [pH] Normal 5.0-7.5 [facility] Work Phone: Comment on above: PATIENT WAS FASTINGP ERFORMED BY: AUDREY DhillonJuan Mxwykr4913 [address] RoadDublin [place] [id number] pH Test strip (U) 5.0 [pH] Normal 5.0-7.5 Compreh ensive Internal Medicine Work Phone: Protein Ql (U) Negative Normal Comprehens champ Internal Medicine Work Phone: Comment on above: PATIENT WAS FASTINGP ERFORMED BY: AUDREY [facility]University [facility] Crosfw1136 [address] RoadDublin [place] [id number] Protein Ql (U) Negative Normal Comprehens champ [facility]; [facility] Work Phone: Comment on above: PATIENT WAS FASTINGP ERFORMED BY: AUDREY LabJuan Izmwiy1953 [address] RoadDublin [place] [id number] Protein Test strip Ql (U) Negative Normal [facility] Work Phone: Specific gravity Relative Density (U) 1.026 1 Normal 1.005-1.03 0 [facility] Work Phone: Comment on above: PATIENT WAS FASTINGP ERFORMED BY: AUDREY Clemons Hziwgx6[address] RoadDublin [place] [id number] Urobilinogen (U) [Mass/Vol] 0.2 mg/dL Normal 0.2-1.0 [facility]; [facility] Work Phone: Comment on above: PATIENT WAS FASTINGP ERFORMED BY: AUDREY [facility]University [facility] Qoneem3776 [address] RoadDublin [place] [id number] Urobilinogen Test strip mass conc (U) 0.2 mg/dL Normal 0.2-1.0 Comprehensiv e Internal Medicine Work Phone: Comment on above: PATIENT WAS FASTINGP ERFORMED BY: AUDREY LabCo Zpeplu2780 [address] RoadDublin [place] [id number] PSA,Total - Annual ScreenOrd ered By: Drawing Operator on 08-28-2016 Prostate specific Ag mass conc 1.81 ng/mL Normal 0.00-4.00 [facility] Work Phone: Comment on above: This test was perfor med using the TPSA assay method for theDimension chemistry system. Values obtained with differentassay methods cannot be used interchangably.When changing PSA assays in the course of monitoring apatient, additional sequential testing should be carriedout to confirm baseline values. [facility] [address] [place], [place], [address] Fecal Occult Blood , Office ([id number])Ordered By: Adan Gamble on 01-26-2016 Hemoglobin.gastroint estinal Ql (St) Negative Normal [facility] Work Phone: Hemoglobin.gastroint estinal Ql (Stl) Negative Normal [facility]; [facility] Work Phone: PSA,Total- DiagnosticOrdered By: Drawing Operator on 05-23-2015 PSA, DIAGNOSTIC 3.72 ng/mL Normal 0.0-4.0 [facility] Internal Medicine Work Phone: Comment on above: [...] should be carriedout to confirm baseline values. [facility] [address] [place], [place], [address] PSA, TOTAL - DIAGNOSTIC ([id number])Ordered By: Drawing Operator on 03-23-2015 Prostate specific Ag mass conc 4.4 ng/mL Abnormal 0.0-4.0 [facility] Work Phone: Comment on above: Mike ECLIA methodol ogy. .According to the [place] [employer], Serum PSA shoulddecrease and remain [...] malignant disease. PATIENT NOT FASTINGP ERFORMED BY: [address] [id number] Information: [id number] C-DIFFICILE, STOOL ([id number])Or dered By: Drawing Operator on 03-21-2015 C. difficile toxin A+B IA Ql (St) Negative Normal [facility] Work Phone: Comment on above: PATIENT NOT FASTINGP ERFORMED BY: [address] [id number] Information: [id number] C. difficile toxin A+B IA Ql (Stl) Negative Normal [facility]; [facility] Work Phone: Comment on above: PATIENT NOT FASTINGP ERFORMED BY: [address] [id number] Information: [id number] CBC WITH MANUAL DIFF (36459) Ordered By: Drawing Operator on 03-21-2015 Basophils (Bld) [#/Vol] 0.1 {x10E3/uL} Normal 0.0-0.2 [facility] Work Phone: Comment on above: PATIENT NOT FASTINGP ERFORMED BY: [address] [id number] Information: [id number] Basophils (Bld) [#/Vol] 0.1 10*3/uL Normal 0.0-0.2 [facility]; [facility] Work Phone: Comment on above: PATIENT NOT FASTINGP ERFORMED BY: [facility]6370 [facility] [id number] Information: [id number] Basophils Auto #/vol (Bld) 0.1 {x10E3/uL} Normal 0.0-0.2 [facility] Work Phone: Basophils/100 WBC (Bld) 1 % Normal [facility] Work Phone: Comment on above: PATIENT NOT FASTINGP ERFORMED BY: AUDREY Rzaalin6370 [facility] [id number] Information: [id number] Basophils/100 WBC Auto (Bld) 1 % Normal [facility] Work Phone: Eosinophils (Bld) [#/Vol] 0.2 {x10E3/uL} Normal 0.0-0.4 [facility] Work Phone: Comment on above: PATIENT NOT FASTINGP ERFORMED BY: AUDREY [address] [id number] Information: [id number] Eosinophils (Bld) [#/Vol] 0.2 10*3/uL Normal 0.0-0.4 [facility]; [facility] Work Phone: Comment on above: PATIENT NOT FASTINGP ERFORMED BY: AUDREY [place] [id number] [facility] [id number] Information: [id number] Eosinophils Auto #/vol (Bld) 0.2 {x10E3/uL} Normal 0.0-0.4 [facility] Work Phone: Eosinophils/100 WBC (Bld) 2 % Normal [facility] Work Phone: Comment on above: PATIENT NOT FASTINGP ERFORMED BY: [address] [id number] Information: [id number] Eosinophils/100 WBC Auto (Bld) 2 % Normal [facility] Work Phone: Erythrocyte distribution width (RBC) [Ratio] 13.7 % Normal 12.3-15.4 [facility] Work Phone: Comment on above: PATIENT NOT FASTINGP ERFORMED BY: [address] [id number] Information: [id number] Erythrocyte distribution width Auto Ratio (RBC) 13.7 % Normal 12.3-15.4 [facility] Work Phone: Hematocrit (Bld) [Volume fraction] 47.0 % Normal 37.5-51.0 [facility] Work Phone: Comment on above: PATIENT NOT FASTINGP ERFORMED BY: LabMichael Ville 7[address]2670 [facility] [id number] Information: [id number] Hematocrit Auto Volume Fraction (Bld) 47.0 % Normal 37.5-51.0 [facility] Work Phone: Hemoglobin mass conc (Bld) 16.2 g/dL Normal 12.6-17.7 [facility] Work Phone: Comment on above: PATIENT NOT FASTINGP ERFORMED BY: [address] [id number] Information: [id number] Immature granulocytes #/vol (Bld) 0.0 {x10E3/uL} Normal 0.0-0.1 [facility] Work Phone: Comment on above: PATIENT NOT FASTINGP ERFORMED BY: LabCoSarah Ville [id number] [facility] [id number] Information: [id number] Immature granulocytes (Bld) [#/Vol] 0.0 10*3/uL Normal 0.0-0.1 [facility]; [facility] Work Phone: Comment on above: PATIENT NOT FASTINGP ERFORMED BY: [facility] CenterAqlotm1339 [facility] [id number] Information: [id number] Immature granulocytes/100 WBC (Bld) 0 % Normal [facility] Work Phone: Comment on above: PATIENT NOT FASTINGP ERFORMED BY: LabMichael Ville 7752670 [facility] [id number] Information: [id number] Lymphocytes (Bld) [#/Vol] 2.0 {x10E3/uL} Normal 0.7-3.1 [facility] Work Phone: Comment on above: PATIENT NOT FASTINGP ERFORMED BY: AUDREY AlejoZacarias RazaXbgzex5522 [facility] [id number] Information: [id number] Lymphocytes (Bld) [#/Vol] 2.0 10*3/uL Normal 0.7-3.1 [facility]; [facility] Work Phone: Comment on above: PATIENT NOT FASTINGP ERFORMED BY: AUDREY [facility] Sibwwh8434 [facility] [id number] Information: [id number] Lymphocytes Auto #/vol (Bld) 2.0 {x10E3/uL} Normal 0.7-3.1 [facility] Work Phone: Lymphocytes/100 WBC (Bld) 20 % Normal [facility] Work Phone: Comment on above: PATIENT NOT FASTINGP ERFORMED BY: AUDREY DhillonDemadeline RazaNzirha3528 [facility] [id number] Information: [id number] Lymphocytes/100 WBC Auto (Bld) 20 % Normal [facility] Work Phone: MCH (RBC) [Entitic mass] 29.6 pg Normal 26.6-33.0 [facility] Work Phone: Comment on above: PATIENT NOT FASTINGP ERFORMED BY: AUDREY [facility] Dviykd5701 [facility] [id number] Information: [id number] MCH Auto Entitic mass (RBC) 29.6 pg Normal 26.6-33.0 [facility] Work Phone: MCHC (RBC) [Mass/Vol] 34.5 g/dL Normal 31.5-35.7 [facility] Work Phone: Comment on above: PATIENT NOT FASTINGP ERFORMED BY: AUDREY Melanie [place] [id number] [facility] [id number] Information: [id number],[id number] MCHC Auto mass conc (RBC) 34.5 g/dL Normal 31.5-35.7 [facility] Work Phone: MCV (RBC) [Entitic vol] 86 fL Normal 79-97 [facility] Work Phone: Comment on above: PATIENT NOT FASTINGP ERFORMED BY: [place] [id number] [facility] [id number] Information: [id number] MCV Auto Entitic volume (RBC) 86 fL Normal 79-97 [facility] Work Phone: Monocytes (Bld) [#/Vol] 0.7 {x10E3/uL} Normal 0.1-0.9 [facility] Work Phone: Comment on above: PATIENT NOT FASTINGP ERFORMED BY: [place] [address] [facility] [id number] Information: [id number],[id number] Monocytes (Bld) [#/Vol] 0.7 10*3/uL Normal 0.1-0.9 [facility]; [facility] Work Phone: Comment on above: PATIENT NOT FASTINGP ERFORMED BY: [facility]6370 [facility] [id number] Information: 710577,[id number] Monocytes Auto #/vol (Bld) 0.7 {x10E3/uL} Normal 0.1-0.9 [facility] Work Phone: Monocytes/100 WBC (Bld) 7 % Normal [facility] Work Phone: Comment on above: PATIENT NOT FASTINGP ERFORMED BY: [place] [id number] [facility] [id number] Information: [id number] Monocytes/100 WBC Auto (Bld) 7 % Normal [facility] Work Phone: Neutrophils (Bld) [#/Vol] 7.1 {x10E3/uL} Abnormal 1.4-7.0 [facility] Work Phone: Comment on above: PATIENT NOT FASTINGP ERFORMED BY: AUDREY Fu6370 [facility] [id number] Information: 120396,[id number] Neutrophils (Bld) [#/Vol] 7.1 10*3/uL Abnormal 1.4-7.0 [facility]; [facility] Work Phone: Comment on above: PATIENT NOT FASTINGP ERFORMED BY: AUDREY Fu6370 [facility] [id number] Information: 088329,[id number] Neutrophils Auto #/vol (Bld) 7.1 {x10E3/uL} Abnormal 1.4-7.0 [facility] Work Phone: Neutrophils/100 WBC (Bld) 70 % Normal [facility] Work Phone: Comment on above: PATIENT NOT FASTINGP ERFORMED BY: AUDREY Corwin Fu6370 [facility] [id number] Information: 827732,Z60780 Neutrophils/100 WBC Auto (Bld) 70 % Normal [facility] Work Phone: Platelets (Bld) [#/Vol] 411 {x10E3/uL} Abnormal 150-379 [facility] Work Phone: Comment on above: PATIENT NOT FASTINGP ERFORMED BY: AUDREY Kaci Oellen6131 [facility] [id number] Information: [id number] Platelets (Bld) [#/Vol] 411 10*3/uL Abnormal 150-379 [facility]; [facility] Work Phone: Comment on above: PATIENT NOT FASTINGP ERFORMED BY: AUDREY Razalin6370 [facility] [id number] Information: [id number],[id number] Platelets Auto #/vol (Bld) 411 {x10E3/uL} Abnormal 150-379 [facility] Work Phone: RBC (Bld) [#/Vol] 5.48 {x10E6/uL} Normal 4.14-5.80 [facility] Work Phone: Comment on above: PATIENT NOT FASTINGP ERFORMED BY: AUDREY Kacimadeline Bzkjlh4815 [facility] [id number] Information: 144556,[id number] RBC (Bld) [#/Vol] 5.48 10*6/uL Normal 4.14-5.80 [facility] Internal [facility]; [facility] Work Phone: Comment on above: PATIENT NOT FASTINGP ERFORMED BY: AUDREY [address] [id number] Information: [id number] RBC Auto #/vol (Bld) 5.48 {x10E6/uL} Normal 4.14-5.80 [facility] Work Phone: WBC (Bld) [#/Vol] 10.1 {x10E3/uL} Normal 3.4-10.8 [facility] Internal Medicine Work Phone: Comment on above: PATIENT NOT FASTINGP ERFORMED BY: AUDREY [address] [id number] Information: 625634,M12969 WBC (Bld) [#/Vol] 10.1 10*3/uL Normal 3.4-10.8 [facility] Internal [facility]; [facility] Work Phone: Comment on above: PATIENT NOT FASTINGP ERFORMED BY: [facility]6370 [facility] [id number] Information: [id number],[id number] WBC Auto #/vol (Bld) 10.1 {x10E3/uL} Normal 3.4-10.8 [facility] Internal Medicine Work Phone: URINALYSIS ([id number])Ordered By : Drawing Operator on 03-21-2015 Appearance Nom (U) Clear Normal [facility] Work Phone: Comment on above: PATIENT NOT FASTINGP ERFORMED BY: AUDREY [facility] Eaohsz2[address] RoadDublin [place] [id number] Information: [id number] Bilirubin Ql (U) Negative Normal Comprehe nsive Internal Medicine Work Phone: Comment on above: PATIENT NOT FASTINGP ERFORMED BY: AUDREY [facility] Ojisus84[address] RoadDublin [place] [id number] Information: Q05542 Bilirubin Ql (U) Negative Normal Comprehe nsive [facility]; [facility] Work Phone: Comment on above: PATIENT NOT FASTINGP ERFORMED BY: AUDREY [facility] Sfrotu7[address] RoadDublin [place] [id number] Information: H30143 Color Nom (U) Yellow Normal Comprehensi ve Internal Medicine Work Phone: Comment on above: PATIENT NOT FASTINGP ERFORMED BY: AUDREY LabJuanrp Fgmikd6[address] RoadDublin [place] [id number] Information: [id number] Glucose Ql (U) Negative Normal Comprehens champ Internal Medicine Work Phone: Comment on above: PATIENT NOT FASTINGP ERFORMED BY: AUDREY [facility] Exrcdk14[address] RoadDublin [place] [id number] Information: [id number] Glucose Ql (U) Negative Normal Comprehens [facility]; [facility] Work Phone: Comment on above: PATIENT NOT FASTINGP ERFORMED BY: AUDREY [facility] Wilixb94[address] RoadDublin [place] [id number] Information: C75704 Hemoglobin Ql (U) Negative Normal Compreh ensive Internal Medicine Work Phone: Comment on above: PATIENT NOT FASTINGP ERFORMED BY: AUDREY [facility] Ynyqan8708 [address] RoadDublin [place] [id number] Information: [id number] Hemoglobin Ql (U) Negative Normal Compreh ensive [facility]; [facility] Work Phone: Comment on above: PATIENT NOT FASTINGP ERFORMED BY: AUDREY [facility] Loyeve[address] RoadDublin [place] [id number] Information: Y69081 Hemoglobin Test strip Ql (U) Negative Normal [facility] Work Phone: Ketones Ql (U) Negative Normal [facility] Work Phone: Comment on above: PATIENT NOT FASTINGP ERFORMED BY: AUDREY Razalin6[address] RoadDuke Regional Hospitalin [place] [id number] Information: S72873 Ketones Ql (U) Negative Normal Comprehens champ [facility]; [facility] Work Phone: Comment on above: PATIENT NOT FASTINGP ERFORMED BY: AUDREY LabZacarias RazaAopxjq8923 Johnson RoadDublin [place] [id number] Information: Z33718 Leukocyte esterase Test strip Ql (U) Negative Normal [facility] Work Phone: Comment on above: PATIENT NOT FASTINGP ERFORMED BY: UADREY Razalin6[address] RoadDuke Regional Hospitalin [place] [id number] Information: [id number] Leukocyte esterase Test strip Ql (U) Negative Normal [facility]; [facility] Work Phone: Comment on above: PATIENT NOT FASTINGP ERFORMED BY: AUDREY Razalin6[address] RoadDuke Regional Hospitalin [place] [id number] Information: Z47321 Microscopic observation LM Nom (Urine sed) MICNIP Normal [facility] Work Phone: Comment on above: Microscopic not paresh cated and not performed. PATIENT NOT FASTINGP ERFORMED BY: AUDREY Razalin6370 [address] RoadDuke Regional Hospitalin [place] [id number] Information: G87400 Nitrite Ql (U) Negative Normal [facility] Work Phone: Comment on above: PATIENT NOT FASTINGP ERFORMED BY: AUDREY Razalin6370 [address] Roadblin [place] [id number] Information: [id number] Nitrite Ql (U) Negative Normal Comprehens champ [facility]; [facility] Work Phone: Comment on above: PATIENT NOT FASTINGP ERFORMED BY: AUDREY Razalin6[address] RoadDublin [place] [id number] Information: X68030 Nitrite Test strip Ql (U) Negative Normal [facility] Work Phone: pH (U) 5.5 [pH] Normal 5.0-7.5 [facility] Work Phone: Comment on above: PATIENT NOT FASTINGP ERFORMED BY: AUDREY [facility] Ydfgax0398 [address] RoadDublin [place] [id number] Information: H40114 pH Test strip (U) 5.5 [pH] Normal 5.0-7.5 Compreh ensive Internal Medicine Work Phone: Protein Ql (U) Negative Normal Comprehens [facility] Work Phone: Comment on above: PATIENT NOT FASTINGP ERFORMED BY: AUDREY Clemons Qiixek5852 [address] RoadDuke Regional Hospitalin [place] [id number] Information: G11181 Protein Ql (U) Negative Normal Comprehens [facility]; [facility] Work Phone: Comment on above: PATIENT NOT FASTINGP ERFORMED BY: AUDREY LabJuan Nfvpgk[address] [facility]in [place] [id number] Information: Q47029 Protein Test strip Ql (U) Negative Normal [facility] Work Phone: Specific gravity Relative Density (U) 1.022 1 Normal 1.005-1.03 0 [facility] Work Phone: Comment on above: PATIENT NOT FASTINGP ERFORMED BY: AUDREY [facility] Ypyily0940 [address] RoadDuke Regional Hospitalin [place] [id number] Information: V48890 Urobilinogen (U) [Mass/Vol] 0.2 mg/dL Normal 0.2-1.0 [facility]; [facility] Work Phone: Comment on above: PATIENT NOT FASTINGP ERFORMED BY: AUDREY [facility] Tkyulr45[address] Roadblin [place] [id number] Information: A81403 Urobilinogen Test strip mass conc (U) 0.2 mg/dL Normal 0.2-1.0 Comprehensiv e Internal Medicine Work Phone: Comment on above: PATIENT NOT FASTINGP ERFORMED BY: [address] [id number] Information: Z55996 URINE TURNER CULTURE-IDENTIFICA [place] (84309)Ordered By: Drawing Operator on 03-21-2015 Bacteria identified Cx Nom (U) NG36 Normal [facility] Work Phone: Comment on above: No growth in 36 - 48 hours. PATIENT NOT FASTINGP ERFORMED BY: [address] [id number] Bacteria identified Cx Nom (U) Final report Normal [facility] Work Phone: Comment on above: PATIENT NOT FASTINGP ERFORMED BY: [address] [id number] CBC W/AUTO DIFF WBC (51898)O rdered By: Drawing Operator on 03-14-2015 Basophils (Bld) [#/Vol] 0.1 {x10E3/uL} Normal 0.0-0.2 [facility] Work Phone: Comment on above: PATIENT NOT FASTINGP ERFORMED BY: [address] [id number] Information: [id number], NURSE DRAW Basophils (Bld) [#/Vol] 0.1 10*3/uL Normal 0.0-0.2 [facility]; [facility] Work Phone: Comment on above: PATIENT NOT FASTINGP ERFORMED BY: [place] [address] [facility] [id number] Information: [id number], NURSE DRAW Basophils Auto #/vol (Bld) 0.1 {x10E3/uL} Normal 0.0-0.2 [facility] Work Phone: Basophils/100 WBC (Bld) 1 % Normal [facility] Work Phone: Comment on above: PATIENT NOT FASTINGP ERFORMED BY: [place] [address] [facility] [id number] Information: [id number], NURSE DRAW Basophils/100 WBC Auto (Bld) 1 % Normal [facility] Work Phone: Eosinophils (Bld) [#/Vol] 0.2 {x10E3/uL} Normal 0.0-0.4 [facility] Work Phone: Comment on above: PATIENT NOT FASTINGP ERFORMED BY: [address] [id number] Information: [id number], NURSE DRAW Eosinophils (Bld) [#/Vol] 0.2 10*3/uL Normal 0.0-0.4 [facility]; [facility] Work Phone: Comment on above: PATIENT NOT FASTINGP ERFORMED BY: [address] [id number] Information: J55662, NURSE DRAW Eosinophils Auto #/vol (Bld) 0.2 {x10E3/uL} Normal 0.0-0.4 [facility] Work Phone: Eosinophils/100 WBC (Bld) 2 % Normal [facility] Work Phone: Comment on above: PATIENT NOT FASTINGP ERFORMED BY: [address] [id number] Information: [id number], NURSE DRAW Eosinophils/100 WBC Auto (Bld) 2 % Normal [facility] Work Phone: Erythrocyte distribution width (RBC) [Ratio] 13.5 % Normal 12.3-15.4 [facility] Work Phone: Comment on above: PATIENT NOT FASTINGP ERFORMED BY: [address] [id number] Information: [id number], NURSE DRAW Erythrocyte distribution width Auto Ratio (RBC) 13.5 % Normal 12.3-15.4 [facility] Work Phone: Hematocrit (Bld) [Volume fraction] 45.1 % Normal 37.5-51.0 [facility] Work Phone: Comment on above: PATIENT NOT FASTINGP ERFORMED BY: [facility] Tcbuxt[address] [id number] Information: [id number], NURSE DRAW Hematocrit Auto Volume Fraction (Bld) 45.1 % Normal 37.5-51.0 [facility] Work Phone: Hemoglobin mass conc (Bld) 16.3 g/dL Normal 12.6-17.7 [facility] Work Phone: Comment on above: PATIENT NOT FASTINGP ERFORMED BY: [address] [id number] Information: M18796, NURSE DRAW Immature granulocytes #/vol (Bld) 0.0 {x10E3/uL} Normal 0.0-0.1 [facility] Work Phone: Comment on above: PATIENT NOT FASTINGP ERFORMED BY: [address] [id number] Information: [id number], NURSE DRAW Immature granulocytes (Bld) [#/Vol] 0.0 10*3/uL Normal 0.0-0.1 [facility]; [facility] Work Phone: Comment on above: PATIENT NOT FASTINGP ERFORMED BY: [address] [id number] Information: P42212, NURSE DRAW Immature granulocytes/100 WBC (Bld) 0 % Normal [facility] Work Phone: Comment on above: PATIENT NOT FASTINGP ERFORMED BY: [address] [id number] Information: Z04843, NURSE DRAW Lymphocytes (Bld) [#/Vol] 1.6 {x10E3/uL} Normal 0.7-3.1 [facility] Work Phone: Comment on above: PATIENT NOT FASTINGP ERFORMED BY: [address]Dublin [place] [id number] Information: [id number], NURSE DRAW Lymphocytes (Bld) [#/Vol] 1.6 10*3/uL Normal 0.7-3.1 [facility]; [facility] Work Phone: Comment on above: PATIENT NOT FASTINGP ERFORMED BY: [address] [id number] Information: Q04172, NURSE DRAW Lymphocytes Auto #/vol (Bld) 1.6 {x10E3/uL} Normal 0.7-3.1 [facility] Work Phone: Lymphocytes/100 WBC (Bld) 13 % Normal [facility] Work Phone: Comment on above: PATIENT NOT FASTINGP ERFORMED BY: [address] [id number] Information: N26084, NURSE DRAW Lymphocytes/100 WBC Auto (Bld) 13 % Normal [facility] Work Phone: MCH (RBC) [Entitic mass] 30.5 pg Normal 26.6-33.0 [facility] Work Phone: Comment on above: PATIENT NOT FASTINGP ERFORMED BY: [address] [id number] Information: T09603, NURSE DRAW MCH Auto Entitic mass (RBC) 30.5 pg Normal 26.6-33.0 [facility] Work Phone: MCHC (RBC) [Mass/Vol] 36.1 g/dL Abnormal 31.5-35.7 [facility] Work Phone: Comment on above: PATIENT NOT FASTINGP ERFORMED BY: [address] [id number] Information: [id number], NURSE DRAW MCHC Auto mass conc (RBC) 36.1 g/dL Abnormal 31.5-35.7 [facility] Work Phone: MCV (RBC) [Entitic vol] 85 fL Normal 79-97 [facility] Work Phone: Comment on above: PATIENT NOT FASTINGP ERFORMED BY: AUDREY DhillonMichael Ville 7752670 [facility] [id number] Information: S11277, NURSE DRAW MCV Auto Entitic volume (RBC) 85 fL Normal 79-97 [facility] Work Phone: Monocytes (Bld) [#/Vol] 1.1 {x10E3/uL} Abnormal 0.1-0.9 [facility] Work Phone: Comment on above: PATIENT NOT FASTINGP ERFORMED BY: [address] [id number] Information: [id number], NURSE DRAW Monocytes (Bld) [#/Vol] 1.1 10*3/uL Abnormal 0.1-0.9 [facility]; [facility] Work Phone: Comment on above: PATIENT NOT FASTINGP ERFORMED BY: [address] [id number] Information: [id number], NURSE DRAW Monocytes Auto #/vol (Bld) 1.1 {x10E3/uL} Abnormal 0.1-0.9 [facility] Work Phone: Monocytes/100 WBC (Bld) 9 % Normal [facility] Work Phone: Comment on above: PATIENT NOT FASTINGP ERFORMED BY: [address] [id number] Information: K48951, NURSE DRAW Monocytes/100 WBC Auto (Bld) 9 % Normal [facility] Work Phone: Neutrophils (Bld) [#/Vol] 8.7 {x10E3/uL} Abnormal 1.4-7.0 [facility] Work Phone: Comment on above: PATIENT NOT FASTINGP ERFORMED BY: [address] [id number] Information: [id number], NURSE DRAW Neutrophils (Bld) [#/Vol] 8.7 10*3/uL Abnormal 1.4-7.0 [facility]; [facility] Work Phone: Comment on above: PATIENT NOT FASTINGP ERFORMED BY: AUDREY Corwin Bourne [facility] [id number] Information: L15509, NURSE DRAW Neutrophils Auto #/vol (Bld) 8.7 {x10E3/uL} Abnormal 1.4-7.0 [facility] Work Phone: Neutrophils/100 WBC (Bld) 72 % Normal [facility] Work Phone: Comment on above: PATIENT NOT FASTINGP ERFORMED BY: AUDREY Kacimadeline RazaNnqkww16[address] [id number] Information: F95905, NURSE DRAW Neutrophils/100 WBC Auto (Bld) 72 % Normal [facility] Work Phone: Platelets (Bld) [#/Vol] 408 {x10E3/uL} Abnormal 150-379 [facility] Work Phone: Comment on above: PATIENT NOT FASTINGP ERFORMED BY: AUDREY AlejoZacarias RazaGvcjel38[address] [id number] Information: [id number], NURSE DRAW Platelets (Bld) [#/Vol] 408 10*3/uL Abnormal 150-379 [facility]; [facility] Work Phone: Comment on above: PATIENT NOT FASTINGP ERFORMED BY: AUDREY AlejoZacarias RazaEvhvml3048 [facility] [id number] Information: [id number], NURSE DRAW Platelets Auto #/vol (Bld) 408 {x10E3/uL} Abnormal 150-379 [facility] Work Phone: RBC (Bld) [#/Vol] 5.34 {x10E6/uL} Normal 4.14-5.80 [facility] Work Phone: Comment on above: PATIENT NOT FASTINGP ERFORMED BY: AUDREY Kaci Tvglgg3[address] [id number] Information: [id number], NURSE DRAW RBC (Bld) [#/Vol] 5.34 10*6/uL Normal 4.14-5.80 [facility]; [facility] Work Phone: Comment on above: PATIENT NOT FASTINGP ERFORMED BY: [place] [address] [facility] [id number] Information: [id number], NURSE DRAW RBC Auto #/vol (Bld) 5.34 {x10E6/uL} Normal 4.14-5.80 [facility] Work Phone: WBC (Bld) [#/Vol] 12.1 {x10E3/uL} Abnormal 3.4-10.8 [facility] Work Phone: Comment on above: PATIENT NOT FASTINGP ERFORMED BY: [place] [address] [facility] [id number] Information: [id number], NURSE DRAW WBC (Bld) [#/Vol] 12.1 10*3/uL Abnormal 3.4-10.8 [facility]; [facility] Work Phone: Comment on above: PATIENT NOT FASTINGP ERFORMED BY: [address] [id number] Information: P07936, NURSE DRAW WBC Auto #/vol (Bld) 12.1 {x10E3/uL} Abnormal 3.4-10.8 [facility] Work Phone: Basic Metabolic Profile (BMP )Ordered By: Drawing Operator on 03-08-2015 Basic metabolic 2000 panel 75 mL/min Normal [facility] Work Phone: Comment on above: Non- GFR Calc [facility] [address] [place], [place], [id number] Basic metabolic 2000 panel 5.7 {RATIO} Abnormal 10-20 [facility] Work Phone: Comment on above: [facility] [address] [place], [place], [address] Basic metabolic 2000 panel 1.06 mg/dL Normal 0.70-1.30 [facility] Work Phone: Comment on above: The validity of the calculated GFR AND GFRAA in patients over70 years has not been determined. Clinical correlation isessential. [facility] [address] [place], [address] Basic metabolic 2000 panel 91 mL/min Normal [facility] Work Phone: Comment on above: GFR Calc [facility] [address] [place], [place], [address] Basic metabolic 2000 panel 135 mmol/L Abnormal 136-145 [facility] Work Phone: Comment on above: [facility] [address] [place], [place], [address] Basic metabolic 2000 panel 8.7 mg/dL Normal 8.5-10.1 [facility] Work Phone: Comment on above: [facility] [address] [place], [address] Basic metabolic 2000 panel 103 mmol/L Normal 98-107 Comprehensive Internal Medicine Work Phone: Comment on above: [facility] [address] [place], [address] Basic metabolic 2000 panel 3.6 mmol/L Normal 3.5-5.1 [facility] Work Phone: Comment on above: [facility] [address] [place], [address] Basic metabolic 2000 panel 73.65 ml/min Normal [facility] Work Phone: Comment on above: [facility] [address] [place], [address] Basic metabolic 2000 panel 112 mg/dL Abnormal 70-110 [facility] Work Phone: Comment on above: Fasting Glucose resu lt from 110 to <126 mg/dLsuggests IMPAIRED HOMEOSTASIS per A.D.A. criteria. [facility] [address] [place], [place], [id number] Basic metabolic 2000 panel 22.0 mmol/L Normal 21.0-32.0 [facility] Work Phone: Comment on above: [facility] [address] [place], [place], [address] Basic metabolic 2000 panel 10 1 Normal 5-15 [facility] Work Phone: Comment on above: [facility] [address] [place], [place], [address] Basic metabolic 2000 panel 6 mg/dL Abnormal 7-18 [facility] Work Phone: Comment on above: [facility] [address] [place], [place], [address] CBC W/Diff, AutomatedOrdered By: Drawing Operator on 03-08-2015 Absolute Lymph 1.63 {X10_3/ul} Normal 0.83-4.51 Compr ehensive Internal Medicine Work Phone: Absolute Neut 18.8 {X10_3/uL} Abnormal 2.0-7.7 Compre hensive Internal Medicine Work Phone: Comment on above: [facility] [address] [place], [place], [address] Basophils/100 WBC (Bld) 0.1 % Normal 0-1 [facility] Work Phone: Comment on above: [facility] [address] [place], [place], [address] Basophils/100 WBC Auto (Bld) 0.1 % Normal 0-1 [facility] Work Phone: Eosinophils/100 WBC (Bld) 0.3 % Normal 0-5 [facility] Work Phone: Comment on above: [facility] [address] [place], [address] Eosinophils/100 WBC Auto (Bld) 0.3 % Normal 0-5 [facility] Work Phone: Erythrocyte distribution width (RBC) [Ratio] 13.0 % Normal 11.6-14.6 [facility] Work Phone: Comment on above: [facility] [address] [place], [address] Erythrocyte distribution width Auto Ratio (RBC) 13.0 % Normal 11.6-14.6 [facility] Work Phone: Hematocrit (Bld) [Volume fraction] 47.4 % Normal 40-54 [facility] Work Phone: Comment on above: [place] [address] [place], [address] Hematocrit Auto Volume Fraction (Bld) 47.4 % Normal 40-54 [facility] Work Phone: Hemoglobin mass conc (Bld) 16.9 g/dL Abnormal 13.0-16.5 [facility] Work Phone: Comment on above: [place] [address] [place], [address] IM GRAN % 0.400 % Normal 0.0-0.9 [facility] Work Phone: Comment on above: IG% - Immature Granu locytes (promyelocytes, myelocytes andmetamyelocytes) > 1% indicates that a LEFT SHIFT is Present. [facility] [address] [place], [address] Lymphocytes (Bld) [#/Vol] 1.63 {X10_3/ul} Normal 0.83-4.51 [facility] Work Phone: Comment on above: [facility] [address] [place], [address] Lymphocytes/100 WBC (Bld) 7.1 % Abnormal 19-41 [facility] Work Phone: Comment on above: [facility] [address] [place], [address] Lymphocytes/100 WBC Auto (Bld) 7.1 % Abnormal 19-41 [facility] Work Phone: MCH (RBC) [Entitic mass] 30.5 pg Normal 27.0-32.0 [facility] Work Phone: Comment on above: [facility] [address] [place], [address] MCH Auto Entitic mass (RBC) 30.5 pg Normal 27.0-32.0 [facility] Work Phone: MCHC (RBC) [Mass/Vol] 35.7 {g/gl} Normal 32-36 [facility] Work Phone: Comment on above: [facility] [address] [place], [address] MCHC Auto mass conc (RBC) 35.7 {g/gl} Normal 32-36 [facility] Work Phone: MCV (RBC) [Entitic vol] 85.6 fL Normal 80-94 [facility] Work Phone: Comment on above: [facility] [address] [place], [address] MCV Auto Entitic volume (RBC) 85.6 fL Normal 80-94 [facility] Work Phone: Monocytes/100 WBC Auto (Bld) 10.2 % Abnormal 0-10 [facility] Work Phone: Comment on above: [facility] [address] [place], [address] Neutrophils/100 WBC (Bld) 81.9 % Abnormal 47-70 [facility] Work Phone: Comment on above: [facility] [address] [place], [address] Neutrophils/100 WBC Auto (Bld) 81.9 % Abnormal 47-70 [facility] Work Phone: PATH REV May foll Normal [facility] Work Phone: Platelet mean volume (Bld) [Entitic vol] 9.1 fL Normal 6.2-12.0 Comprehensiv e Internal Medicine Work Phone: Comment on above: [facility] [address] [place], [address] Platelet mean volume Auto Entitic volume (Bld) 9.1 fL Normal 6.2-12.0 [facility] Work Phone: Platelets (Bld) [#/Vol] 277 10*3/uL Normal 150-450 [facility] Work Phone: Comment on above: [facility] [address] [place], [address] Platelets Auto #/vol (Bld) 277 10*3/uL Normal 150-450 [facility] Work Phone: RBC (Bld) [#/Vol] 5.54 {M/mm3} Normal 4.6-6.2 [facility] Internal Medicine Work Phone: Comment on above: [facility] [address] [place], [address] RBC Auto #/vol (Bld) 5.54 {M/mm3} Normal 4.6-6.2 [facility] Internal Medicine Work Phone: RDW SD 40.8 fL Normal 35.1-43.9 [facility] Work Phone: Comment on above: [facility] [address] [place], [address] SMEAR COMMENT SCANNED Normal Comprehensi Internal Medicine Work Phone: Comment on above: MONOCYTOSIS NOTED WBC (Bld) [#/Vol] 23.0 10*3/uL Abnormal 4.4-11.0 [facility] Internal Medicine Work Phone: Comment on above: [facility] [address] [place], [place], [id number] WBC Auto #/vol (Bld) 23.0 10*3/uL Abnormal 4.4-11.0 [facility] Internal Medicine Work Phone: CBC W/Diff, Automated SCANNED Normal [facility] Work Phone: Comment on above: MONOCYTOSIS NOTED [facility] [address] [place], [place], [address] CBC W/Diff, Automated May foll Normal [facility] Work Phone: Comment on above: [facility] [address] [place], [place], [address] Basic Metabolic Profile (BMP )Ordered By: Drawing Operator on 03-07-2015 Basic metabolic 2000 panel 9.6 {RATIO} Abnormal 10-20 [facility] Work Phone: Comment on above: [facility] [address] [place], [place], [phone] Basic metabolic 2000 panel 9.4 mg/dL Normal 8.5-10.1 [facility] Work Phone: Comment on above: [facility] [address] [place], [place], [address] Basic metabolic 2000 panel 136 mmol/L Normal 136-145 [facility] Work Phone: Comment on above: [facility] [address] [place], [place], [address] Basic metabolic 2000 panel 4.0 mmol/L Normal 3.5-5.1 [facility] Work Phone: Comment on above: [facility] [address] [place], [place], [address] Basic metabolic 2000 panel 102 mmol/L Normal 98-107 [facility] Work Phone: Comment on above: [facility] [address] [place], [address] Basic metabolic 2000 panel 12 mg/dL Normal 7-18 [facility] Work Phone: Comment on above: [facility] [address] [place], [place], [address] Basic metabolic 2000 panel 119 mg/dL Abnormal 70-110 [facility] Work Phone: Comment on above: Fasting Glucose resu lt from 110 to <126 mg/dLsuggests IMPAIRED HOMEOSTASIS per A.D.A. criteria. [place] [address] [place], [place], [address] Basic metabolic 2000 panel 75 mL/min Normal [facility] Work Phone: Comment on above: GFR Calc [place] [address] [place], [place], [address] Basic metabolic 2000 panel 1.25 mg/dL Normal 0.70-1.30 [facility] Work Phone: Comment on above: The validity of the calculated GFR AND GFRAA in patients over70 years has not been determined. Clinical correlation isessential. [facility] [address] [place], [place], [address] Basic metabolic 2000 panel 62 mL/min Normal [facility] Work Phone: Comment on above: Non- GFR Calc [facility] [address] [place], [address] Basic metabolic 2000 panel 26.0 mmol/L Normal 21.0-32.0 [facility] Work Phone: Comment on above: [facility] [address] [place], [place], [address] Basic metabolic 2000 panel 8 1 Normal 5-15 [facility] Work Phone: Comment on above: [facility] [address] [place], [place], [address] Basic metabolic 2000 panel 62.46 ml/min Normal [facility] Work Phone: Comment on above: [facility] [address] [place], [address] Urinalysis, CompleteOrdered By: Drawing Operator on 03-07-2015 RBC (U) [#/Vol] 0 SEEN Normal 0-5 Comprehen [facility] Internal Medicine Work Phone: Comment on above: Order Date: 03/07/15 How was Urine Obtained? [facility] [address] [place], [address] RBC Test strip #/vol (U) 0 SEEN Normal 0-5 [facility] Work Phone: Urinalysis complete panel - Urine Negative Normal [facility] Work Phone: Comment on above: Order Date: 03/07/15 How was Urine Obtained? [facility] [address] [place], [place], [address] Urinalysis complete panel - Urine 0 SEEN Normal 0-5 [facility] Work Phone: Comment on above: Order Date: 03/07/15 How was Urine Obtained? [facility] [address] [place], [address] Urinalysis complete panel - Urine 0-5 SEEN Normal 0-5 [facility] Work Phone: Comment on above: Order Date: 03/07/15 How was Urine Obtained? [facility] [address] [place], [address] Urinalysis complete panel - Urine Normal Normal [facility] Work Phone: Comment on above: Order Date: 03/07/15 How was Urine Obtained? [facility] [address] [place], [address] Urinalysis complete panel - Urine Clear Normal [facility] Work Phone: Comment on above: Order Date: 03/07/15 How was Urine Obtained? CLEAN [facility] [address] [place], [place], [address] Urinalysis complete panel - Urine 6.0 1 Normal 5.0 - 8.0 [facility] Work Phone: Comment on above: Order Date: 03/07/15 How was Urine Obtained? CLEAN [facility] [address] [place], [place], [address] Urinalysis complete panel - Urine 1.010 1 Normal 1.002-1.03 0 [facility] Work Phone: Comment on above: Order Date: 03/07/15 How was Urine Obtained? [facility] [address] [place], [place], [address] Urinalysis complete panel - Urine Yellow Normal [facility] Work Phone: Comment on above: Order Date: 03/07/15 How was Urine Obtained? CLEAN [facility] [address] [place], [place], [address] MISCELLANEOUS SPECIMENOrdere d By: Drawing Operator on 01-26-2015 MISCELLANEOUS SPECIMEN See Note Normal [facility] Work Phone: Comment on above: Patient: THA MENG : 1950 (64/M) Acct Num: [id number] Phys: Kelly Laguerre DO Unit Num: [id number] Loc: [facility] Specimen: [id number] Received: 01/27/15809 Spec Type: [facility] TISSUES TISSUES: GROSS DESCRIPTION Received is one container labeled with the patient name and designated nail andcyst left middle finger . The specimen consists of a wesley-white nail measuring 2 x 1 x 0.1 cm. Also present in the container is a detached piece of soft tissue measuring 0.5 x 0.5 x 0.1 cm. The entire specimen is submitted in two cassettes as follows: 1 - smaller piece of tissue, 2 - nail. 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 MICROSCOPIC DIAGNOSIS Nail and cyst left middle finger, excision: A piece of skin, suggestive of benign cyst. Nail - no pathologic diagnosis. Special stain for fungi is negative for organisms; matched control is appropriate. SJ: 01/28/15 Signed Omar Pierre 01/31/15 [facility] [address] [place], [address] CBC, Platelets & Auto Diff ( [id number])Ordered By: Drawing Operator on 11-15-2014 Basophils (Bld) [#/Vol] 0.0 {x10E3/uL} Normal 0.0-0.2 [facility] Work Phone: Comment on above: PATIENT NOT FASTINGP ERFORMED BY: [facility] H[address]vws[address] [facility] [id number] Information: [id number] Basophils (Bld) [#/Vol] 0.0 10*3/uL Normal 0.0-0.2 [facility]; [facility] Work Phone: Comment on above: PATIENT NOT FASTINGP ERFORMED BY: [facility] Dyxvjb[address] [facility] [id number] Information: [id number] Basophils Auto #/vol (Bld) 0.0 {x10E3/uL} Normal 0.0-0.2 [facility] Work Phone: Basophils/100 WBC (Bld) 0 % Normal [facility] Work Phone: Comment on above: PATIENT NOT FASTINGP ERFORMED BY: [facility] Eqdrcu[address] [facility] [id number] Information: [id number] Basophils/100 WBC Auto (Bld) 0 % Normal [facility] Work Phone: Eosinophils (Bld) [#/Vol] 0.1 {x10E3/uL} Normal 0.0-0.4 [facility] Work Phone: Comment on above: PATIENT NOT FASTINGP ERFORMED BY: [place] [id number] [facility] [id number] Information: [id number] Eosinophils (Bld) [#/Vol] 0.1 10*3/uL Normal 0.0-0.4 [facility]; [facility] Work Phone: Comment on above: PATIENT NOT FASTINGP ERFORMED BY: [address] [id number] Information: [id number] Eosinophils Auto #/vol (Bld) 0.1 {x10E3/uL} Normal 0.0-0.4 [facility] Work Phone: Eosinophils/100 WBC (Bld) 1 % Normal [facility] Work Phone: Comment on above: PATIENT NOT FASTINGP ERFORMED BY: [address] [id number] Information: [id number] Eosinophils/100 WBC Auto (Bld) 1 % Normal [facility] Work Phone: Erythrocyte distribution width (RBC) [Ratio] 13.3 % Normal 12.3-15.4 [facility] Work Phone: Comment on above: PATIENT NOT FASTINGP ERFORMED BY: [facility] [facility] [id number] Information: [id number] Erythrocyte distribution width Auto Ratio (RBC) 13.3 % Normal 12.3-15.4 [facility] Work Phone: Hematocrit (Bld) [Volume fraction] 46.5 % Normal 37.5-51.0 [facility] Work Phone: Comment on above: PATIENT NOT FASTINGP ERFORMED BY: [facility] [facility] [id number] Information: [id number] Hematocrit Auto Volume Fraction (Bld) 46.5 % Normal 37.5-51.0 [facility] Work Phone: Hemoglobin mass conc (Bld) 16.2 g/dL Normal 12.6-17.7 [facility] Work Phone: Comment on above: PATIENT NOT FASTINGP ERFORMED BY: [address] [id number] Information: [id number] Immature granulocytes #/vol (Bld) 0.0 {x10E3/uL} Normal 0.0-0.1 [facility] Work Phone: Comment on above: PATIENT NOT FASTINGP ERFORMED BY: [address] [id number] Information: [id number] Immature granulocytes (Bld) [#/Vol] 0.0 10*3/uL Normal 0.0-0.1 [facility]; [facility] Work Phone: Comment on above: PATIENT NOT FASTINGP ERFORMED BY: [address] [id number] Information: [id number] Immature granulocytes/100 WBC (Bld) 0 % Normal [facility] Work Phone: Comment on above: PATIENT NOT FASTINGP ERFORMED BY: [address] [id number] Information: [id number] Lymphocytes (Bld) [#/Vol] 2.0 {x10E3/uL} Normal 0.7-3.1 [facility] Work Phone: Comment on above: PATIENT NOT FASTINGP ERFORMED BY: [address] [id number] Information: [id number] Lymphocytes (Bld) [#/Vol] 2.0 10*3/uL Normal 0.7-3.1 [facility]; [facility] Work Phone: Comment on above: PATIENT NOT FASTINGP ERFORMED BY: AUDREY AlejoZacarias Lyixhu[address] [facility] [id number] Information: [id number] Lymphocytes Auto #/vol (Bld) 2.0 {x10E3/uL} Normal 0.7-3.1 [facility] Work Phone: Lymphocytes/100 WBC (Bld) 29 % Normal [facility] Work Phone: Comment on above: PATIENT NOT FASTINGP ERFORMED BY: AUD[facility]Y [facility] RazaTpdupx9761 [facility] [id number] Information: [id number] Lymphocytes/100 WBC Auto (Bld) 29 % Normal [facility] Work Phone: MCH (RBC) [Entitic mass] 30.4 pg Normal 26.6-33.0 [facility] Work Phone: Comment on above: PATIENT NOT FASTINGP ERFORMED BY: AUDREY [address] [id number] Information: [id number] MCH Auto Entitic mass (RBC) 30.4 pg Normal 26.6-33.0 [facility] Work Phone: MCHC (RBC) [Mass/Vol] 34.8 g/dL Normal 31.5-35.7 [facility] Work Phone: Comment on above: PATIENT NOT FASTINGP ERFORMED BY: [facility] [facility] [id number] Information: [id number] MCHC Auto mass conc (RBC) 34.8 g/dL Normal 31.5-35.7 [facility] Work Phone: MCV (RBC) [Entitic vol] 87 fL Normal 79-97 [facility] Work Phone: Comment on above: PATIENT NOT FASTINGP ERFORMED BY: [facility] [facility] [id number] Information: [id number] MCV Auto Entitic volume (RBC) 87 fL Normal 79-97 [facility] Work Phone: Monocytes (Bld) [#/Vol] 0.5 {x10E3/uL} Normal 0.1-0.9 [facility] Work Phone: Comment on above: PATIENT NOT FASTINGP ERFORMED BY: [address] [id number] Information: [id number] Monocytes (Bld) [#/Vol] 0.5 10*3/uL Normal 0.1-0.9 [facility]; [facility] Work Phone: Comment on above: PATIENT NOT FASTINGP ERFORMED BY: [place] [id number] [facility] [id number] Information: [id number] Monocytes Auto #/vol (Bld) 0.5 {x10E3/uL} Normal 0.1-0.9 [facility] Work Phone: Monocytes/100 WBC (Bld) 8 % Normal [facility] Work Phone: Comment on above: PATIENT NOT FASTINGP ERFORMED BY: [place] [address] [facility] [id number] Information: [id number] Monocytes/100 WBC Auto (Bld) 8 % Normal [facility] Work Phone: Neutrophils (Bld) [#/Vol] 4.1 {x10E3/uL} Normal 1.4-7.0 [facility] Work Phone: Comment on above: PATIENT NOT FASTINGP ERFORMED BY: [place] [id number] [facility] [id number] Information: [id number] Neutrophils (Bld) [#/Vol] 4.1 10*3/uL Normal 1.4-7.0 [facility]; [facility] Work Phone: Comment on above: PATIENT NOT FASTINGP ERFORMED BY: AUDREY [address] [facility] [id number] Information: [id number] Neutrophils Auto #/vol (Bld) 4.1 {x10E3/uL} Normal 1.4-7.0 [facility] Work Phone: Neutrophils/100 WBC (Bld) 62 % Normal [facility] Work Phone: Comment on above: PATIENT NOT FASTINGP ERFORMED BY: AUDREY Kacimadeline RazaCjlhai[address]655 [facility] [id number] Information: [id number] Neutrophils/100 WBC Auto (Bld) 62 % Normal [facility] Work Phone: Platelets (Bld) [#/Vol] 263 {x10E3/uL} Normal 150-379 [facility] Work Phone: Comment on above: PATIENT NOT FASTINGP ERFORMED BY: AUDREY Kaci Descrm[address] [facility] [id number] Information: [id number] Platelets (Bld) [#/Vol] 263 10*3/uL Normal 150-379 [facility]; [facility] Work Phone: Comment on above: PATIENT NOT FASTINGP ERFORMED BY: AUDREY Kaci Ooafry[address] [facility] [id number] Information: [id number] Platelets Auto #/vol (Bld) 263 {x10E3/uL} Normal 150-379 [facility] Work Phone: RBC (Bld) [#/Vol] 5.33 {x10E6/uL} Normal 4.14-5.80 [facility] Internal Medicine Work Phone: Comment on above: PATIENT NOT FASTINGP ERFORMED BY: AUDREY AlejoMichael [place] [address] [facility] [id number] Information: [id number] RBC (Bld) [#/Vol] 5.33 10*6/uL Normal 4.14-5.80 [facility] ehensive Internal Medicine; [facility] Work Phone: Comment on above: PATIENT NOT FASTINGP ERFORMED BY: AUDREY AlejoZacarias RazaEtkyix5163 [facility] [id number] Information: [id number] RBC Auto #/vol (Bld) 5.33 {x10E6/uL} Normal 4.14-5.80 [facility] Work Phone: WBC (Bld) [#/Vol] 6.7 {x10E3/uL} Normal 3.4-10.8 Com prehensive Internal Medicine Work Phone: Comment on above: PATIENT NOT FASTINGP ERFORMED BY: AUDREY AlejoZacarias RazaJjcmje2560 [facility] [id number] Information: [id number] WBC (Bld) [#/Vol] 6.7 10*3/uL Normal 3.4-10.8 Compre [facility]; [facility] Work Phone: Comment on above: PATIENT NOT FASTINGP ERFORMED BY: AUDREY Fu[address]370 [facility] [id number] Information: [id number] WBC Auto #/vol (Bld) 6.7 {x10E3/uL} Normal 3.4-10.8 [facility] Work Phone: Renal function Panel ([id number]) Ordered By: Drawing Operator on 11-15-2014 Albumin mass conc 4.5 g/dL Normal 3.6-4.8 Compreh ensive Internal Medicine Work Phone: Comment on above: PATIENT NOT FASTINGP ERFORMED BY: AUDREY AlejoJuan Uphedd7901 [facility] [id number] Calcium mass conc 10.0 mg/dL Normal 8.6-10.2 Compreh ensive Internal Medicine Work Phone: Comment on above: PATIENT NOT FASTINGP ERFORMED BY: AUDREY Olivia Yoemnb2643 [facility] [place] [id number] Chloride molar conc 99 mmol/L Normal 97-108 Compr ehensive Internal Medicine Work Phone: Comment on above: PATIENT NOT FASTINGP ERFORMED BY: AUDREY [facility] Pjplaw4173 [facility] [place] [id number] CO2 molar conc 25 mmol/L Normal 18-29 Comprehens champ Internal Medicine Work Phone: Comment on above: PATIENT NOT FASTINGP ERFORMED BY: AUDREY [facility] Frbevg6532 [facility] [place] [id number] Creatinine mass conc 0.98 mg/dL Normal 0.76-1.27 Comp rehensive Internal Medicine Work Phone: Comment on above: PATIENT NOT FASTINGP ERFORMED BY: AUDREY [facility] Ibnygp5882 [facility] [id number] GFR/1.73 sq M predicted among blacks CKD-EPI vol rate/area (S/P/Bld) 94 mL/min/1.73 Normal Comprehensiv e Internal Medicine Work Phone: Comment on above: PATIENT NOT FASTINGP ERFORMED BY: AUDREY [facility] Pehyup5208 [facility] [place] [id number] GFR/1.73 sq M predicted among non-blacks CKD-EPI vol rate/area (S/P/Bld) 82 mL/min/1.73 Normal [facility] Work Phone: Comment on above: PATIENT NOT FASTINGP ERFORMED BY: AUDREY [facility] Epwlod8581 [facility] [id number] Glucose mass conc 63 mg/dL Abnormal 65-99 Compreh ensive Internal Medicine Work Phone: Comment on above: This serum sample wa s in contactwith the red cells when received.This may adversely affect serumChemistries. PATIENT NOT FASTINGP ERFORMED BY: AUDREY [facility] Wdasyj0872 [facility] [place] [id number] Phosphate mass conc 4.1 mg/dL Normal 2.5-4.5 Compr ehensive Internal Medicine Work Phone: Comment on above: PATIENT NOT FASTINGP ERFORMED BY: CB [facility] Gfonqv8717 [facility] [id number] Potassium molar conc 5.1 mmol/L Normal 3.5-5.2 Comp rehensive Internal Medicine Work Phone: Comment on above: PATIENT NOT FASTINGP ERFORMED BY: CB [facility] Rlogsz5222 [facility] [place] [id number] Sodium molar conc 141 mmol/L Normal 134-144 Compreh ensive Internal Medicine Work Phone: Comment on above: PATIENT NOT FASTINGP ERFORMED BY: CB [facility] Sapcxx2761 [facility] [id number] Urea nitrogen mass conc 15 mg/dL Normal 8-27 [facility] Work Phone: Comment on above: PATIENT NOT FASTINGP ERFORMED BY: [facility] Bjonun9454 [facility] [id number] Urea nitrogen/Creatinine mass ratio 15 mg/mg Normal 10- [facility] Work Phone: Comment on above: PATIENT NOT FASTINGP ERFORMED BY: [facility] Ngkcmi5180 [facility] [id number] Basic Metabolic Profile (BMP )Ordered By: Drawing Operator on 11-12-2014 Basic metabolic 2000 panel 42 mL/min Abnormal [facility] Work Phone: Comment on above: Serial Specimen #1, #2 or #3? 1'TROP' Serial specimen #1, #2, #3, or #4: 1Test performed at:[facility] [address] [place], [place] [id number] Basic metabolic 2000 panel 9 1 Normal 5-15 [facility] Work Phone: Comment on above: Serial Specimen #1, #2 or #3? 1'TROP' Serial specimen #1, #2, #3, or #4: 1Test performed at:[facility] [address] [place], [place] [id number] Basic metabolic 2000 panel 24.0 mmol/L Normal 21.0-32.0 [facility] Work Phone: Comment on above: Serial Specimen #1, #2 or #3? 1'TROP' Serial specimen #1, #2, #3, or #4: 1Test performed at:[facility] [address] [place] [address] Basic metabolic 2000 panel 106 mmol/L Normal 98-107 [facility] Work Phone: Comment on above: Serial Specimen #1, #2 or #3? 1'TROP' Serial specimen #1, #2, #3, or #4: 1Test performed at:[facility] [address] [place] [address] Basic metabolic 2000 panel 3.9 mmol/L Normal 3.5-5.1 [facility] Work Phone: Comment on above: Serial Specimen #1, #2 or #3? 1'TROP' Serial specimen #1, #2, #3, or #4: 1Test performed at:[facility] [address] [place] [address] Basic metabolic 2000 panel 139 mmol/L Normal 136-145 [facility] Work Phone: Comment on above: Serial Specimen #1, #2 or #3? 1'TROP' Serial specimen #1, #2, #3, or #4: 1Test performed at:[facility] [address] [place] [address] Basic metabolic 2000 panel 106 mg/dL Normal 70-110 [facility] Work Phone: Comment on above: Serial Specimen #1, #2 or #3? 1'TROP' Serial specimen #1, #2, #3, or #4: 1Test performed at:[facility] [address] [place] [address] Basic metabolic 2000 panel 29 mg/dL Abnormal 7-18 [facility] Work Phone: Comment on above: Serial Specimen #1, #2 or #3? 1'TROP' Serial specimen #1, #2, #3, or #4: 1Test performed at:[facility] [address] [place] [address] Basic metabolic 2000 panel 2.03 mg/dL Abnormal 0.70-1.30 [facility] Work Phone: Comment on above: Please note revised CREATININE reference range wwcjiadow97/22/2015. Serial Specimen #1, #2 or #3? 1'TROP' Serial specimen #1, #2, #3, or #4: 1Test performed at:[facility] [address] [place] [address] Basic metabolic 2000 panel 35 mL/min Abnormal [facility] Work Phone: Comment on above: Serial Specimen #1, #2 or #3? 1'TROP' Serial specimen #1, #2, #3, or #4: 1Test performed at:[facility] [address] [place] [address] Basic metabolic 2000 panel 9.6 mg/dL Normal 8.5-10.1 [facility] Work Phone: Comment on above: Serial Specimen #1, #2 or #3? 1'TROP' Serial specimen #1, #2, #3, or #4: 1Test performed at:[facility] [address] [place] [address] Basic metabolic 2000 panel 14.3 {RATIO} Normal 10-20 [facility] Work Phone: Comment on above: Serial Specimen #1, #2 or #3? 1'TROP' Serial specimen #1, #2, #3, or #4: 1Test performed at:[facility] [address] [place] [address] Basic metabolic 2000 panel 38.46 ml/min Normal [facility] Work Phone: Comment on above: Serial Specimen #1, #2 or #3? 1'TROP' Serial specimen #1, #2, #3, or #4: 1Test performed at:[facility] [address] [place] [address] CBC W/Diff, AutomatedOrdered By: Drawing Operator on 11-12-2014 Absolute Lymph 2.07 {X10_3/ul} Normal 0.83-4.51 Compr ehensive Internal Medicine Work Phone: Absolute Neut 9.5 {X10_3/uL} Abnormal 2.0-7.7 Compreh ensive Internal Medicine Work Phone: Comment on above: Test performed at:[facility] [address] [place] [address] Basophils/100 WBC (Bld) 0.2 % Normal 0-1 [facility] Work Phone: Comment on above: Test performed at:[facility] [address] [place] [address] Basophils/100 WBC Auto (Bld) 0.2 % Normal 0-1 [facility] Work Phone: Eosinophils/100 WBC (Bld) 0.5 % Normal 0-5 [facility] Work Phone: Comment on above: Test performed at:[facility] [address] [place] [address] Eosinophils/100 WBC Auto (Bld) 0.5 % Normal 0-5 [facility] Work Phone: Erythrocyte distribution width (RBC) [Ratio] 12.6 % Normal 11.6-14.6 [facility] Work Phone: Comment on above: Test performed at:[facility] [address] [place] [address] Erythrocyte distribution width Auto Ratio (RBC) 12.6 % Normal 11.6-14.6 [facility] Work Phone: Hematocrit (Bld) [Volume fraction] 48.5 % Normal 40-54 [facility] Work Phone: Comment on above: Test performed at:[facility] [address] [place] [address] Hematocrit Auto Volume Fraction (Bld) 48.5 % Normal 40-54 [facility] Work Phone: Hemoglobin mass conc (Bld) 16.9 g/dL Abnormal 13.0-16.5 [facility] Work Phone: Comment on above: Test performed at:[facility] [address] [place] [address] IM GRAN % 0.300 % Normal 0.0-0.9 [facility] Work Phone: Comment on above: IG% - Immature Granu locytes (promyelocytes, myelocytes andmetamyelocytes) > 1% indicates that a LEFT SHIFT is Present. Test performed at:[facility] [address] [place] [address] Lymphocytes (Bld) [#/Vol] 2.07 {X10_3/ul} Normal 0.83-4.51 [facility] Work Phone: Comment on above: Test performed at:[facility] [address] [place] [address] Lymphocytes/100 WBC (Bld) 15.8 % Abnormal 19-41 [facility] Work Phone: Comment on above: Test performed at:[facility] [address] [place] [address] Lymphocytes/100 WBC Auto (Bld) 15.8 % Abnormal 19-41 [facility] Work Phone: MCH (RBC) [Entitic mass] 30.5 pg Normal 27.0-32.0 [facility] Work Phone: Comment on above: Test performed at:[facility] [address] [place] [address] MCH Auto Entitic mass (RBC) 30.5 pg Normal 27.0-32.0 [facility] Work Phone: MCHC (RBC) [Mass/Vol] 34.8 {g/gl} Normal 32-36 [facility] Work Phone: Comment on above: Test performed at:[facility] [address] [place] [address] MCHC Auto mass conc (RBC) 34.8 {g/gl} Normal 32-36 [facility] Work Phone: MCV (RBC) [Entitic vol] 87.4 fL Normal 80-94 [facility] Work Phone: Comment on above: Test performed at:[facility] [address] [place] [address] MCV Auto Entitic volume (RBC) 87.4 fL Normal 80-94 [facility] Work Phone: Monocytes/100 WBC Auto (Bld) 10.2 % Abnormal 0-10 [facility] Work Phone: Comment on above: Test performed at:[facility] [address] [place] [address] Neutrophils/100 WBC (Bld) 73.0 % Abnormal 47-70 [facility] Work Phone: Comment on above: Test performed at:[facility] [address] [place] [address] Neutrophils/100 WBC Auto (Bld) 73.0 % Abnormal 47-70 [facility] Work Phone: Platelet mean volume (Bld) [Entitic vol] 9.3 fL Normal 6.2-12.0 Comprehensiv e Internal Medicine Work Phone: Comment on above: Test performed at:[facility] [address] [place] [address] Platelet mean volume Auto Entitic volume (Bld) 9.3 fL Normal 6.2-12.0 [facility] Work Phone: Platelets (Bld) [#/Vol] 243 10*3/uL Normal 150-450 [facility] Work Phone: Comment on above: Test performed at:[facility] [address] [place] [address] Platelets Auto #/vol (Bld) 243 10*3/uL Normal 150-450 [facility] Internal Medicine Work Phone: RBC (Bld) [#/Vol] 5.55 {M/mm3} Normal 4.6-6.2 [facility] Internal Medicine Work Phone: Comment on above: Test performed at:[facility] [address] [place] [address] RBC Auto #/vol (Bld) 5.55 {M/mm3} Normal 4.6-6.2 [facility] Internal Medicine Work Phone: RDW SD 40.7 fL Normal 35.1-43.9 [facility] Internal Medicine Work Phone: Comment on above: Test performed at:[facility] [address] [place] [address] WBC (Bld) [#/Vol] 13.1 10*3/uL Abnormal 4.4-11.0 [facility] Internal Medicine Work Phone: Comment on above: Test performed at:[facility] [address] [place] [address] WBC Auto #/vol (Bld) 13.1 10*3/uL Abnormal 4.4-11.0 [facility] Internal Medicine Work Phone: CK-MB Quantitative and Index Ordered By: Drawing Operator on 11-12-2014 CK.MB [Mass/Vol] 2.0 ng/mL Normal 0.0-5.0 [facility] Work Phone: Comment on above: CK-MB and RI Interpr etation MB Relative Index Non-AMI 5 5 > 4 Serial Specimen #1, #2 or #3? 1'TROP' Serial specimen #1, #2, #3, or #4: 1Test performed at:[facility] [address] [place], [place] [id number] CPK TOTAL 162 U/L Normal 39-308 Comprehensive [...] #1, #2, #3, or #4: 1Test performed at:[facility] [address] [place] [address] Troponin-IOrdered By: Drawing Operator on 11-12-2014 Troponin I.cardiac mass conc ng/mL Normal [facility] Work Phone: Comment on above: TROPONIN-I EXPECTED VALUES <0.05 NEGATIVE 0.06 - 0.59 AT RISK OF CA > OR = 0.60 SUGGEST CA Serial Specimen #1, #2 or #3? 1'TROP' Serial specimen #1, #2, #3, or #4: 1Test performed at:[facility] [address] [place] [address] LIPID PANEL ([id number])Ordered B y: Drawing Operator on 03-01-2014 Cholesterol in HDL mass conc 48 mg/dL Normal [facility] Work Phone: Comment on above: According to ATP-III Guidelines, HDL-C >59 mg/dL is considered anegative risk factor for CHD. PATIENT WAS FASTINGP ERFORMED BY: VennliCoVerican70 [facility] [id number] Information: [id number] Cholesterol in LDL mass conc 134 mg/dL Abnormal 0-99 [facility] Work Phone: Comment on above: PATIENT WAS FASTINGP ERFORMED BY: Petpace70 [facility] [id number] Information: [id number] Cholesterol in LDL/Cholesterol in HDL mass ratio 2.8 {ratio_units} Normal 0.0-3.6 [facility] Work Phone: Comment on above: LDL/HDL Ratio Men Wo men 1/2 Avg.Risk 1.0 1.5 Avg.Risk 3.6 3.2 2X Avg.Risk 6.2 5.0 3X Avg.Risk 8.0 6.1 PATIENT WAS FASTINGP ERFORMED BY: [facility] Xdeect3292 [facility] [id number] Information: [id number] Cholesterol in VLDL mass conc 14 mg/dL Normal 5-40 [facility] Work Phone: Comment on above: PATIENT WAS FASTINGP ERFORMED BY: [facility] Oozzfe5660 [facility] [id number] Information: [id number] Cholesterol mass conc 196 mg/dL Normal 100-199 [facility] Work Phone: Comment on above: PATIENT WAS FASTINGP ERFORMED BY: [facility] Xkmgdk5236 [facility] [id number] Information: [id number] Triglyceride mass conc 69 mg/dL Normal 0-149 [facility] Work Phone: Comment on above: PATIENT WAS FASTINGP ERFORMED BY: [facility] Woomhk0879 [facility] [id number] Information: [id number] PSA (PROSTATE SPECIFIC ANTIG EN) (V76.44)Ordered By: Drawing Operator on 03-01-2014 Prostate specific Ag mass conc 3.3 ng/mL Normal 0.0-4.0 [facility] Work Phone: Comment on above: Mike ECLIA methodol ogy. .According to the [place] [employer], Serum PSA shoulddecrease and remain [...] malignant disease. PATIENT WAS FASTINGP ERFORMED BY: [facility] Qltkpc5435 [facility] [id number] LIPID PANEL ([id number])Ordered B y: Drawing Operator on 04-12-2010 Cholesterol in HDL mass conc 46 mg/dL Normal [facility] Work Phone: Comment on above: According to ATP-III Guidelines, HDL-C >59 mg/dL is considered anegative risk factor for CHD. PATIENT WAS FASTINGP ERFORMED BY: AUDREY [facility] Xrhcbn3440 [facility] [id number] Information: [id number] Cholesterol in LDL mass conc 128 mg/dL Abnormal 0-99 [facility] Work Phone: Comment on above: PATIENT WAS FASTINGP ERFORMED BY: [place] [id number] [facility] [id number] Information: [id number] Cholesterol in LDL/Cholesterol in HDL mass ratio 2.8 {ratio_units} Normal 0.0-3.6 [facility] Work Phone: Comment on above: PATIENT WAS FASTINGP ERFORMED BY: AUDREY Clemons Wocsdd4599 [facility] [id number] Information: [id number] Cholesterol in VLDL mass conc 11 mg/dL Normal 5-40 [facility] Work Phone: Comment on above: PATIENT WAS FASTINGP ERFORMED BY: [facility]6370 [facility] [id number] Information: [id number] Cholesterol mass conc 185 mg/dL Normal 100-199 [facility] Work Phone: Comment on above: PATIENT WAS FASTINGP ERFORMED BY: [facility]6370 [facility] [id number] Information: [id number] Triglyceride mass conc 54 mg/dL Normal 0-149 [facility] Work Phone: Comment on above: PATIENT WAS FASTINGP ERFORMED BY: [employer] [employer] [place] [id number] Information: [id number] PSA (PROSTATE SPECIFIC ANTIG EN) (V76.44)Ordered By: Drawing Operator on 04-12-2010 Prostate specific Ag mass conc 2.5 ng/mL Normal 0.0-4.0 [facility] Work Phone: Comment on above: [employer] ECLIA methodol ogy. .According to the [place] [employer], Serum PSA shoulddecrease and remain [...] malignant disease. PATIENT WAS FASTINGP ERFORMED BY: [employer] [employer] [place] [id number] Calcium, SerumOrdered By: Chicfy stem Second Officer on 05-06-2009 Calcium mass conc 10.0 mg/dL Normal 8.7-10.2 Compreh ensive Internal Medicine Work Phone: Comment on above: PERFORMED BY: Ugenie70 [facility]Nov[facility] [id number] Lipid Panel With LDL/HDL Rat ioOrdered By: Drawing Operator on 05-06-2009 Cholesterol in HDL mass conc 49 mg/dL Normal [facility] Work Phone: Comment on above: According to ATP-III Guidelines, HDL-C >59 mg/dL is considered anegative risk factor for CHD. PERFORMED BY: [email or web address] [employer] [place] [id number] Cholesterol in LDL mass conc 118 mg/dL Abnormal 0-99 [facility] Work Phone: Comment on above: PERFORMED BY: U[employer]ie70 [employer] InternationalMatthew [employer] [place] [id number] Cholesterol in LDL/Cholesterol in HDL mass ratio 2.4 {ratio_units} Normal 0.0-3.6 [facility] Work Phone: Comment on above: PERFORMED BY: [employer] Qvebfr0506 [address] [id number] Cholesterol in VLDL mass conc 14 mg/dL Normal 5-40 [facility] Work Phone: Comment on above: PERFORMED BY: Vennli Zacarias Aqkwpq[address] RoadDublin [place] [id number] Cholesterol mass conc 181 mg/dL Normal 100-199 [facility] Work Phone: Comment on above: PERFORMED BY: [employer] Ahqzxr[address]43 Johnson RoadDublin [place] [id number] Triglyceride mass conc 70 mg/dL Normal 0-149 [facility] Work Phone: Comment on above: PERFORMED BY: [employer]6370 [address] [id number] CBC WITH MANUAL DIFF ([id number]) Ordered By: Drawing Operator on 04-04-2009 Basophils (Bld) [#/Vol] 0.0 {x10E3/uL} Normal 0.0-0.2 [facility] Work Phone: Comment on above: PATIENT WAS FASTINGP ERFORMED BY: [employer]6370 [facility] [id number] Information: [id number] Basophils (Bld) [#/Vol] 0.0 10*3/uL Normal 0.0-0.2 [facility]; [facility] Work Phone: Comment on above: PATIENT WAS FASTINGP ERFORMED BY: [employer] Peiulp9006 [facility] [place] [id number] Information: [id number] Basophils Auto #/vol (Bld) 0.0 {x10E3/uL} Normal 0.0-0.2 [facility] Work Phone: Basophils/100 WBC (Bld) 0 % Normal 0-3 [facility] Work Phone: Comment on above: PATIENT WAS FASTINGP ERFORMED BY: [employer]6370 [facility] [id number] Information: [id number] Basophils/100 WBC Auto (Bld) 0 % Normal 0-3 [facility] Work Phone: Eosinophils (Bld) [#/Vol] 0.1 {x10E3/uL} Normal 0.0-0.4 [facility] Work Phone: Comment on above: PATIENT WAS FASTINGP ERFORMED BY: [address] [id number] Information: [id number] Eosinophils (Bld) [#/Vol] 0.1 10*3/uL Normal 0.0-0.4 [facility]; [facility] Work Phone: Comment on above: PATIENT WAS FASTINGP ERFORMED BY: [address] [id number] Information: [id number] Eosinophils Auto #/vol (Bld) 0.1 {x10E3/uL} Normal 0.0-0.4 [facility] Work Phone: Eosinophils/100 WBC (Bld) 1 % Normal 0-7 [facility] Work Phone: Comment on above: PATIENT WAS FASTINGP ERFORMED BY: [place] [id number] [facility] [id number] Information: [id number] Eosinophils/100 WBC Auto (Bld) 1 % Normal 0-7 [facility] Work Phone: Erythrocyte distribution width (RBC) [Ratio] 13.9 % Normal 11.7-15.0 [facility] Work Phone: Comment on above: PATIENT WAS FASTINGP ERFORMED BY: [address] [id number] Information: [id number] Erythrocyte distribution width Auto Ratio (RBC) 13.9 % Normal 11.7-15.0 [facility] Work Phone: Hematocrit (Bld) [Volume fraction] 47.5 % Normal 36.0-50.0 [facility] Work Phone: Comment on above: PATIENT WAS FASTINGP ERFORMED BY: AUDREY [place] [address] [facility] [id number] Information: [id number] Hematocrit Auto Volume Fraction (Bld) 47.5 % Normal 36.0-50.0 [facility] Work Phone: Hemoglobin mass conc (Bld) 16.2 g/dL Normal 12.5-17.0 [facility] Work Phone: Comment on above: PATIENT WAS FASTINGP ERFORMED BY: [address] [id number] Information: [id number] Lymphocytes (Bld) [#/Vol] 1.4 {x10E3/uL} Normal 0.7-4.5 [facility] Work Phone: Comment on above: PATIENT WAS FASTINGP ERFORMED BY: [place] [id number] [facility] [id number] Information: [id number] Lymphocytes (Bld) [#/Vol] 1.4 10*3/uL Normal 0.7-4.5 [facility]; [facility] Work Phone: Comment on above: PATIENT WAS FASTINGP ERFORMED BY: [place] [address] [facility] [id number] Information: [id number] Lymphocytes Auto #/vol (Bld) 1.4 {x10E3/uL} Normal 0.7-4.5 [facility] Work Phone: Lymphocytes/100 WBC (Bld) 22 % Normal 14-46 [facility] Work Phone: Comment on above: PATIENT WAS FASTINGP ERFORMED BY: [place] [address] [facility] [id number] Information: [id number] Lymphocytes/100 WBC Auto (Bld) 22 % Normal 14-46 [facility] Work Phone: MCH (RBC) [Entitic mass] 30.8 pg Normal 27.0-34.0 [facility] Work Phone: Comment on above: PATIENT WAS FASTINGP ERFORMED BY: AUDREY Razalin6370 [facility] [id number] Information: [id number] MCH Auto Entitic mass (RBC) 30.8 pg Normal 27.0-34.0 [facility] Work Phone: MCHC (RBC) [Mass/Vol] 34.2 g/dL Normal 32.0-36.0 [facility] Work Phone: Comment on above: PATIENT WAS FASTINGP ERFORMED BY: AUDREY Razalin6370 [facility] [id number] Information: [id number] MCHC Auto mass conc (RBC) 34.2 g/dL Normal 32.0-36.0 [facility] Work Phone: MCV (RBC) [Entitic vol] 90 fL Normal 80-98 [facility] Work Phone: Comment on above: PATIENT WAS FASTINGP ERFORMED BY: AUDREY Razalin6370 [facility] [id number] Information: [id number] MCV Auto Entitic volume (RBC) 90 fL Normal 80-98 [facility] Work Phone: Monocytes (Bld) [#/Vol] 0.6 {x10E3/uL} Normal 0.1-1.0 [facility] Work Phone: Comment on above: PATIENT WAS FASTINGP ERFORMED BY: AUDREY [place] [id number] [facility] [id number] Information: [id number] Monocytes (Bld) [#/Vol] 0.6 10*3/uL Normal 0.1-1.0 [facility]; [facility] Work Phone: Comment on above: PATIENT WAS FASTINGP ERFORMED BY: CB [facility]6[address] [facility] [id number] Information: [id number] Monocytes Auto #/vol (Bld) 0.6 {x10E3/uL} Normal 0.1-1.0 [facility] Work Phone: Monocytes/100 WBC (Bld) 9 % Normal 07-12 [facility] Work Phone: Comment on above: PATIENT WAS FASTINGP ERFORMED BY: AUDREY [place] [id number] [facility] [id number] Information: [id number] Monocytes/100 WBC Auto (Bld) 9 % Normal - [facility] Work Phone: Neutrophils (Bld) [#/Vol] 4.3 {x10E3/uL} Normal 1.8-7.8 [facility] Work Phone: Comment on above: PATIENT WAS FASTINGP ERFORMED BY: AUDREY DhillonMichael Ville [id number] [facility] [id number] Information: [id number] Neutrophils (Bld) [#/Vol] 4.3 10*3/uL Normal 1.8-7.8 [facility]; [facility] Work Phone: Comment on above: PATIENT WAS FASTINGP ERFORMED BY: AUDREY [place] [id number] [facility] [id number] Information: [id number] Neutrophils Auto #/vol (Bld) 4.3 {x10E3/uL} Normal 1.8-7.8 [facility] Work Phone: Neutrophils/100 WBC (Bld) 68 % Normal 40-74 [facility] Work Phone: Comment on above: PATIENT WAS FASTINGP ERFORMED BY: AUDREY [place] [id number] [facility] [id number] Information: [id number] Neutrophils/100 WBC Auto (Bld) 68 % Normal 40-74 [facility] Work Phone: Platelets (Bld) [#/Vol] 257 {x10E3/uL} Normal 140-415 [facility] Work Phone: Comment on above: PATIENT WAS FASTINGP ERFORMED BY: AUDREY AlejoZacarias Nvrfli8653 [facility] [id number] Information: [id number] Platelets (Bld) [#/Vol] 257 10*3/uL Normal 140-415 [facility]; [facility] Work Phone: Comment on above: PATIENT WAS FASTINGP ERFORMED BY: AUDREY AlejoZacarias RazaRtqmmw3178 [facility] [id number] Information: [id number] Platelets Auto #/vol (Bld) 257 {x10E3/uL} Normal 140-415 [facility] Work Phone: RBC (Bld) [#/Vol] 5.26 {x10E6/uL} Normal 4.10-5.60 [facility] Work Phone: Comment on above: PATIENT WAS FASTINGP ERFORMED BY: AUDREY Razalin6370 [facility] [id number] Information: [id number] RBC (Bld) [#/Vol] 5.26 10*6/uL Normal 4.10-5.60 [facility]; [facility] Work Phone: Comment on above: PATIENT WAS FASTINGP ERFORMED BY: [facility]UDREY [facility] Qwepcp5315 [facility] [id number] Information: [id number] RBC Auto #/vol (Bld) 5.26 {x10E6/uL} Normal 4.10-5.60 [facility] Work Phone: WBC (Bld) [#/Vol] 6.3 {x10E3/uL} Normal 4.0-10.5 [facility] Internal Medicine Work Phone: Comment on above: PATIENT WAS FASTINGP ERFORMED BY: AUDREY [address] [id number] Information: [id number] WBC (Bld) [#/Vol] 6.3 10*3/uL Normal 4.0-10.5 [facility]; [facility] Work Phone: Comment on above: PATIENT WAS FASTINGP ERFORMED BY: AUDREY Corwin Fu6370 [facility] [id number] Information: [id number] WBC Auto #/vol (Bld) 6.3 {x10E3/uL} Normal 4.0-10.5 [facility] Work Phone: LIPID PANEL ([id number])Ordered B y: Drawing Operator on 04-04-2009 Cholesterol in HDL mass conc 47 mg/dL Normal [facility] Work Phone: Comment on above: According to ATP-III Guidelines, HDL-C >59 mg/dL is considered anegative risk factor for CHD. PATIENT WAS FASTINGP ERFORMED BY: AUDREY AlejoZacarias RazaYblefj9124 [facility] [id number] Cholesterol in LDL mass conc 128 mg/dL Abnormal 0-99 [facility] Work Phone: Comment on above: PATIENT WAS FASTINGP ERFORMED BY: AUDREY AlejoZacarias RazaTcglej7113 [facility] [id number] Cholesterol in LDL/Cholesterol in HDL mass ratio 2.7 {ratio_units} Normal 0.0-3.6 [facility] Work Phone: Comment on above: PATIENT WAS FASTINGP ERFORMED BY: AUDREY AlejoForest Health Medical Center6[address] [facility] [id number] Cholesterol in VLDL mass conc 17 mg/dL Normal 5-40 [facility] Work Phone: Comment on above: PATIENT WAS FASTINGP ERFORMED BY: AUDREY AlejoJuan Uhevke9323 [facility] [id number] Cholesterol mass conc 192 mg/dL Normal 100-199 [facility] Work Phone: Comment on above: PATIENT WAS FASTINGP ERFORMED BY: AUDREY Fu[address] [place] [id number] Triglyceride mass conc 83 mg/dL Normal 0-149 [facility] Work Phone: Comment on above: PATIENT WAS FASTINGP ERFORMED BY: AUDREY Fu6[address] RoadDublin [place] [id number] METABOLIC PANEL, COMPREHENSI VE ([id number])Ordered By: Drawing Operator on 04-04-2009 Albumin mass conc 4.8 g/dL Normal 3.5-5.5 Compreh [facility] Internal Medicine Work Phone: Comment on above: PATIENT WAS FASTINGP ERFORMED BY: AUDREY Corwin Fu[address] [place] [id number] Albumin/Globulin mass ratio 2.1 {ratio} Normal 1.1-2.5 [facility] Work Phone: Comment on above: PATIENT WAS FASTINGP ERFORMED BY: AUDREY Corwin Fu6[address] RoadAt[facility] [id number] ALP [Catalytic activity/Vol] 67 U/L Normal 25-150 [facility]; [facility] Work Phone: Comment on above: PATIENT WAS FASTINGP ERFORMED BY: AUDREY Corwin Fu[address] [facility] [place] [id number] ALP enzyme act/vol 67 [iU]/L Normal 25-150 [facility] Internal Medicine Work Phone: Comment on above: PATIENT WAS FASTINGP ERFORMED BY: AUDREY Corwin Razalin[address] [facility] [place] [id number] ALT [Catalytic activity/Vol] 36 U/L Normal 0-55 [facility]; [facility] Work Phone: Comment on above: PATIENT WAS FASTINGP ERFORMED BY: AUDREY LabZacarias RazaMmkgrb[address]bl[address] [place] [id number] ALT enzyme act/vol 36 [iU]/L Normal 0-55 [facility] Internal Medicine Work Phone: Comment on above: PATIENT WAS FASTINGP ERFORMED BY: AUDREY LabZacarias RazaIljpel[address] [facility] [place] [id number] AST [Catalytic activity/Vol] 37 U/L Normal 0-40 [facility]; [facility] Work Phone: Comment on above: PATIENT WAS FASTINGP ERFORMED BY: AUDREY [facility] Atffno69[address] Roadblin [place] [id number] AST enzyme act/vol 37 [iU]/L Normal 0-40 Compre [facility] Internal Medicine Work Phone: Comment on above: PATIENT WAS FASTINGP ERFORMED BY: [facility] Yfbsxb0425 [address] RoadDuke [facility] Hospitalin [place] [id number] Bilirubin mass conc 1.2 mg/dL Normal 0.1-1.2 Compr ensive Internal Medicine Work Phone: Comment on above: PATIENT WAS FASTINGP ERFORMED BY: [facility] Bzuasl6907 Johnson RoadAtrium Health [facility] [id number] Calcium mass conc 10.5 mg/dL Abnormal 8.7-10.2 Compreh ensive Internal Medicine Work Phone: Comment on above: Please note refere nce interval change PATIENT WAS FASTINGP ERFORMED BY: [facility] Wdzequ97[address] [facility] [place] [id number] Chloride molar conc 102 mmol/L Normal 97-108 Compr [facility] Internal Medicine Work Phone: Comment on above: PATIENT WAS FASTINGP ERFORMED BY: [facility] Xfwjzc[address] [facility] [id number] CO2 molar conc 25 mmol/L Normal 20-32 Comprehens champ Internal Medicine Work Phone: Comment on above: PATIENT WAS FASTINGP ERFORMED BY: [facility] Xfktke55[address] Roadblin [place] [id number] Creatinine mass conc 1.06 mg/dL Normal 0.76-1.27 Comp [facility] Internal [facility] Work Phone: Comment on above: PATIENT WAS FASTINGP ERFORMED BY: [facility] Movfox2914 [address] [facility] [place] [id number] GFR/1.73 sq M predicted among blacks MDRD vol rate/area (S/P/Bld) mL/min/{1.73_m2} Normal Comprehensi Internal Medicine Work Phone: Comment on above: Note: Persistent red uction for 3 months or more in an eGFR<60 mL/min/1.73 m2 defines CKD. Patients with eGFR values>/=60 mL/min/1.73 m2 may also have CKD if evidence of persistentproteinuria is present. Additional information may be found [email or web address]. PATIENT WAS FASTINGP ERFORMED BY: CB [facility] Qojqja1026 [facility] [id number] GFR/1.73 sq M.predicted MDRD (S/P/Bld) [Vol rate/Area] mL/min/{1.73_m2} Normal [facility] Work Phone: Comment on above: PATIENT WAS FASTINGP ERFORMED BY: [facility] Nxowgx7[address] MondayOne PropertiesAt[facility] [id number] GFR/1.73 sq M.predicted MDRD vol rate/area mL/min/{1.73_m2} Normal [facility] Work Phone: Comment on above: PATIENT WAS FASTINGP ERFORMED BY: CB [facility] Uxdwhz1143 [facility] [id number] Globulin (S) [Mass/Vol] 2.3 g/dL Normal 1.5-4.5 [facility] Work Phone: Comment on above: PATIENT WAS FASTINGP ERFORMED BY: CB [facility] Gpcucm9922 [facility] [id number] Globulin Calculated mass conc (S) 2.3 g/dL Normal 1.5-4.5 [facility] Work Phone: Glucose mass conc 87 mg/dL Normal 65-99 Compreh ensive Internal Medicine Work Phone: Comment on above: PATIENT WAS FASTINGP ERFORMED BY: CB [facility] Mjewde4741 [facility] [id number] Potassium molar conc 4.7 mmol/L Normal 3.5-5.2 Comp rehensive Internal Medicine Work Phone: Comment on above: PATIENT WAS FASTINGP ERFORMED BY: [facility] Yrffmk5002 [address] MondayOne PropertiesAt[facility] [id number] Protein mass conc 7.1 g/dL Normal 6.0-8.5 Compreh ensive Internal Medicine Work Phone: Comment on above: PATIENT WAS FASTINGP ERFORMED BY: [facility] Xrktbk1394 [address] MondayOne PropertiesAt[facility] Health [facility] [id number] Sodium molar conc 138 mmol/L Normal 135-145 Compreh ensive Internal Medicine Work Phone: Comment on above: PATIENT WAS FASTINGP ERFORMED BY: [facility] Bugmds4407 [address] MondayOne PropertiesAt[facility] [id number] Urea nitrogen mass conc 19 mg/dL Normal 5-26 [facility] Work Phone: Comment on above: PATIENT WAS FASTINGP ERFORMED BY: [facility] Goyipx6[address] MondayOne PropertiesAtrium Health [facility] [id number] Urea nitrogen/Creatinine mass ratio 18 mg/mg Normal 8-27 [facility] Work Phone: Comment on above: PATIENT WAS FASTINGP ERFORMED BY: [facility] Ikniyd8924 [facility] [id number] PSA (PROSTATE SPECIFIC ANTIG EN) (V76.44)Ordered By: Drawing Operator on 04-04-2009 Prostate specific Ag mass conc 2.7 ng/mL Normal 0.0-4.0 [facility] Work Phone: Comment on above: Mike ECLIA methodol ogy..According to the [employer], Serum PSA shoulddecrease and remain [...] malignant disease. PATIENT WAS FASTINGP ERFORMED BY: LabBeyondCorerp Souubz0237 [facility] [id number] Anaerobic and Aerobic Cultur eOrdered By: Drawing Operator on 11-27-2007 Bacteria identified Aer cx Nom (Unsp spec) Final report Normal [facility] Work Phone: Comment on above: Clinical Information : SRC:RA PERFORMED BY: AUDREY [facility] Zgfrnk3520 [facility] [id number] Bacteria identified Anaer cx Nom (Unsp spec) Final report Normal [facility] Work Phone: Comment on above: Clinical Information : SRC:RA PERFORMED BY: AddressReportForest Health Medical Center6370 [facility] [id number] Bacteria identified Cx Nom (Unsp spec) Alpha streptococcus Normal Comprehen [facility] Internal [facility] Work Phone: Comment on above: Recovered from broth only. Clinical Information : SRC:RA PERFORMED BY: [facility] Fmfwlf2916 [facility] [id number] Bacteria identified Cx Nom (Unsp spec) [id number] Normal [facility] Work Phone: Comment on above: No anaerobic growth in 72 hours. Clinical Information : SRC:RA PERFORMED BY: [facility] Qhvgfh8470 [facility] [id number] LIPID PANEL ([id number])Ordered B y: Rosita Capone on 08-21-2007 Cholesterol in HDL mass conc 47 mg/dL Normal 40-59 [facility] Work Phone: Comment on above: PATIENT WAS FASTINGC linical Information: ADD [id number] ADD [id number] PERFORMED BY: AddressReportForest Health Medical Center[address] [place] [address] [id number] Cholesterol in LDL mass conc 132 mg/dL Abnormal 0-99 [facility] Work Phone: Comment on above: PATIENT WAS FASTINGC linical Information: ADD [id number] ADD [id number] PERFORMED BY: AddressReport[address] [id number] Cholesterol in LDL/Cholesterol in HDL mass ratio SPRCS Normal [facility] Work Phone: Comment on above: If initial LDL-nicole sterol result is >100 mg/dL, assess forrisk factors. PATIENT WAS FASTINGC linical Information: ADD [id number] ADD [id number] PERFORMED BY: [facility] Wbtcob6163 [facility] [id number] Cholesterol in LDL/Cholesterol in HDL mass ratio 2.8 {ratio_units} Normal 0.0-3.6 [facility] Work Phone: Comment on above: PATIENT WAS FASTINGC linical Information: ADD [id number] ADD [id number] PERFORMED BY: [facility] Rpldqo3316 [address] [facility] [id number] Cholesterol in VLDL mass conc 22 mg/dL Normal 5-40 [facility] Work Phone: Comment on above: PATIENT WAS FASTINGC linical Information: ADD [id number] ADD [id number] PERFORMED BY: [facility] Igqknm1678 [facility] [id number] Cholesterol mass conc 201 mg/dL Abnormal 100-199 [facility] Work Phone: Comment on above: PATIENT WAS FASTINGC linical Information: ADD [id number] ADD [id number] PERFORMED BY: [facility] Yveuro9727 [facility] [id number] Triglyceride mass conc 112 mg/dL Normal 0-149 [facility] Work Phone: Comment on above: PATIENT WAS FASTINGC linical Information: ADD [id number] ADD [id number] PERFORMED BY: [facility] Bsecvm4905 [facility] [id number] PSA (PROSTATE SPECIFIC ANTIG EN) (V76.44)Ordered By: Rosita Capone on 08-21-2007 Prostate specific Ag mass conc 2.2 ng/mL Normal 0.0-4.0 [facility] Work Phone: Comment on above: [employer] ICMA methodology. .EFFECTIVE September 01, 2007, PSA will be changing to the Mike ECLIA methodology. Rebaselining will be offered for 90 days using panel [id number]. The second result, provided by the [employer] ICMA methodology will be provided at no charge. PATIENT WAS FASTINGP ERFORMED BY: [facility] Rnephf8590 [facility] [id number] LIPIDOrdered By: System Nancy laurie on 09-12-2006 Cholesterol in HDL mass conc [...] 500 mg/dL PSA,TOT SCREENOrdered By: Sy stem Second Officer on 09-12-2006 Prostate specific Ag mass conc 1.84 ng/mL Normal 0.00-4.00 [facility] Work Phone: Comment on above: This test was perfor med using the TPSA method for the[employer] chemistry system.Values obtained with different assay methods cannot be usedinterchangably.When changing PSA assays in the course of monitoring apatient, additionaly sequential testing should be carriedout to confirm baseline values. Vital Signs Date Time Vital Sign Value Performing Clinician Facility 09-28-2024 10: Body height 176.5 cm Jt Junior MD Work Phone: [facility] 09-28-2024 10:040 Body mass index (BMI) [Ratio] 23.8 kg/m2 Jt Junior MD Work Phone: [facility] 09-28-2024 10:040 Body temperature 97.39 [degF] Jt Junior MD Work Phone: [facility] 09-28-2024 10:23040 Body weight 74.16 kg Jt Junior MD Work Phone: [facility] 09-28-2024 10:23-0400 Diastolic blood pressure 74 mm[Hg] Jt Junior MD Work Phone: [facility] 09-28-2024 10:23-0400 Heart rate 80 /min Jt Junior MD Work Phone: [facility] 09-28-2024 10:23-0400 SaO2% (BldA) [Mass fraction] 98 % Jt Junior MD Work Phone: [facility] 09-28-2024 10:23-0400 Systolic blood pressure 108 mm[Hg] Jt Junior MD Work Phone: [facility] 08-05-2024 14:13-0400 Blood Pressure Cuff Size CELIA CASTILLO MD [facility] 08-05-2024 14:13-0400 Blood Pressure Location CELIA CASTILLO MD [facility] 08-05-2024 14:13-0400 Blood Pressure Method CELIA CASTILLO MD [facility] 08-05-2024 14:13-0400 Body height 177 cm CELIA CASTILLO MD [facility] 08-05-2024 14:13-0400 Body temperature 98.06 [degF] CELIA CASTILLO MD [facility] 08-05-2024 14:13-0400 Body weight 79.2 kg CELIA CASTILLO MD [facility] 08-05-2024 14:13-0400 Body weight 25.28 kg/m2 CELIA CASTILLO MD [facility] 08-05-2024 14:13-0400 Diastolic Blood Pressure Non-Invasive 89 mm[Hg] CELIA CASTILLO MD [facility] 08-05-2024 14:13-0400 Heart rate 77 /min CELIA CASTILLO MD [facility] 08-05-2024 14:13-0400 Systolic Blood Pressure Non-Invasive 148 mm[Hg] CELIA CASTILLO MD [facility] 06-05-2024 14:00-0500 Body temperature 97.59 [degF] Treatment Wstr Work Phone: [facility] 06-05-2024 14:00-0500 Diastolic blood pressure 88 mm[Hg] Treatment Wstr Work Phone: [facility] 06-05-2024 14:00-0500 Heart rate 87 /min Treatment Wstr Work Phone: [facility] 06-05-2024 14:00-0500 Systolic blood pressure 155 mm[Hg] Treatment Wstr Work Phone: [facility] 06-03-2024 09:07-0500 Body temperature 98.2 [degF] Treatment Wstr Work Phone: [facility] 06-03-2024 09:07-0500 Diastolic blood pressure 80 mm[Hg] Treatment Wstr Work Phone: [facility] 06-03-2024 09:07-0500 Heart rate 71 /min Treatment Wstr Work Phone: [facility] 06-03-2024 09:07-0500 SaO2% (BldA) [Mass fraction] 99 % Treatment Wstr Work Phone: [facility] 06-03-2024 09:07-0500 Systolic blood pressure 131 mm[Hg] Treatment Wstr Work Phone: [facility] 06-01-2024 08:46-0500 Diastolic blood pressure 82 mm[Hg] Treatment Wstr Work Phone: [facility] 06-01-2024 08:46-0500 Heart rate 67 /min Treatment Wstr Work Phone: [facility] 06-01-2024 08:46-0500 Systolic blood pressure 150 mm[Hg] Treatment Wstr Work Phone: [facility] 06-01-2024 08:21-0500 Body temperature 98.1 [degF] Treatment Wstr Work Phone: [facility] 06-01-2024 08:21-0500 Respiratory rate 18 /min Treatment Wstr Work Phone: [facility] 06-01-2024 08:21-0500 SaO2% (BldA) [Mass fraction] 100 % Treatment Wstr Work Phone: [facility] 05-28-2024 15:02-0500 Body temperature 98.8 [degF] Treatment Wstr Work Phone: [facility] 05-28-2024 15:02-0500 Diastolic blood pressure 85 mm[Hg] Treatment Wstr Work Phone: [facility] 05-28-2024 15:02-0500 Heart rate 79 /min Treatment Wstr Work Phone: [facility] 05-28-2024 15:02-0500 SaO2% (BldA) [Mass fraction] 99 % Treatment Wstr Work Phone: [facility] 05-28-2024 15:02-0500 Systolic blood pressure 162 mm[Hg] Treatment Wstr Work Phone: [facility] 05-26-2024 13:41-0500 Body temperature 98.2 [degF] Treatment Wstr Work Phone: [facility] 05-26-2024 13:41-0500 Diastolic blood pressure 92 mm[Hg] Treatment Wstr Work Phone: [facility] 05-26-2024 13:41-0500 Heart rate 72 /min Treatment Wstr Work Phone: [facility] 05-26-2024 13:41-0500 Respiratory rate 22 /min Treatment Wstr Work Phone: [facility] 05-26-2024 13:41-0500 SaO2% (BldA) [Mass fraction] 100 % Treatment Wstr Work Phone: [facility] 05-26-2024 13:41-0500 Systolic blood pressure 151 mm[Hg] Treatment Wstr Work Phone: [facility] 05-22-2024 10:39-0500 Body height 177.8 cm Cathie Salamanca Work Phone: [facility] 05-22-2024 10:39-0500 Body mass index (BMI) [Ratio] 26.11 kg/m2 Cathie Salamanca Work Phone: [facility] 05-22-2024 10:39-0500 Body temperature 97 [degF] Cathie Salamanca Work Phone: [facility] 05-22-2024 10:39-0500 Body weight 82.56 kg Cathie Salamanca Work Phone: [facility] 05-22-2024 10:39-0500 Diastolic blood pressure 78 mm[Hg] Cathie Salamanca Work Phone: [facility] 05-22-2024 10:39-0500 Heart rate 78 /min Cathie Salamanca Work Phone: [facility] 05-22-2024 10:39-0500 SaO2% (BldA) [Mass fraction] 100 % Cathie Salamanca Work Phone: [facility] 05-22-2024 10:39-0500 Systolic blood pressure 147 mm[Hg] Cathie Salamanca Work Phone: [facility] 04-30-2024 13:04-0500 Body height 177.[address] Rosita Capone DO Work Phone: [facility] 02-13-2023 10:50-0500 Body temperature 97.3 [degF] Dr. Rosita Capone Work Phone: [facility] 02-13-2023 10:50-0500 Diastolic blood pressure 97 mm[Hg] Dr. Rosita Capone Work Phone: [facility] 02-13-2023 10:50-0500 Heart rate 75 /min Dr. Rosita Capone Work Phone: [facility] 02-13-2023 10:50-0500 Respiratory rate 16 /min Dr. Rosita Capone Work Phone: [facility] 02-13-2023 10:50-0500 SaO2% (BldA) [Mass fraction] 100 % Dr. Rosita Capone Work Phone: [facility] 02-13-2023 10:50-0500 Systolic blood pressure 152 mm[Hg] Dr. Rosita Capone Work Phone: [facility] 02-13-2023 06:28-0500 Body height 177.[address] Rosita Capone Work Phone: [facility] 02-13-2023 06:28-0500 Body mass index (BMI) [Ratio] 25.6 kg/m2 Dr. Rosita Capone Work Phone: [facility] 02-13-2023 06:28-0500 Body weight [address] Rosita Capone Work Phone: [facility] 01-21-2023 09:13-0400 Body mass index (BMI) [Ratio] 26.2 kg/m2 Dr. Rosita Capone Work Phone: [facility] 01-21-2023 09:13-0400 Body weight [address] Rosita Capone Work Phone: [facility] 01-21-2023 09:13-0400 Diastolic blood pressure 71 mm[Hg] Dr. Rosita Capone Work Phone: [facility] 01-21-2023 09:13-0400 Respiratory rate 16 /min Dr. Rosita Capone Work Phone: [facility] 01-21-2023 09:13-0400 Systolic blood pressure 121 mm[Hg] Dr. Rosita Capone Work Phone: [facility] 01-14-2023 10:52-0400 Body height 179.07 cm NADEGE Lara LPN [facility]; [facility] Work Phone: 01-14-2023 10:52-0400 Body mass index (BMI) [Ratio] 25.89 kg/m2 NADEGE Lara LPN [facility]; [facility] Work Phone: 01-14-2023 10:52-0400 Body surface area Derived from formula 2.02 m2 NADEGEAMALIA Lara LPN [facility]; [facility] Work Phone: 01-14-2023 10:52-0400 Body temperature 97.9 [degF] NADEGEAMALIA Lara LPN [facility]; [facility] Work Phone: Comment on above: Method: Temporal 01-14-2023 10:52-0400 Body weight 83.01 kg NADEGE Marco MCKEON [facility]; [facility] Work Phone: 01-14-2023 10:52-0400 Diastolic blood pressure 78 mm[Hg] NADEGE Lara LPN [facility]; [facility] Work Phone: Comment on above: Patient Position: Sitting; Cuff Location : Left Arm; Cuff Size: Standard 01-14-2023 10:52-0400 Heart rate 78 /min NADEGE Marco MCKEON [facility] Internal Medicine; [facility] Work Phone: Comment on above: Pattern: Regular 01-14-2023 10:52-0400 Respiratory rate 18 /min NADEGE Marco MCKEON [facility]; [facility] Work Phone: Comment on above: Pattern: Unlabored 01-14-2023 10:52-0400 SaO2% (BldA) [Mass fraction] 99 % NADEGEAMALIA Lara LPN [facility]; [facility] Work Phone: Comment on above: Room air 01-14-2023 10:52-0400 Systolic blood pressure 126 mm[Hg] NADEGE Lara LPN [facility]; [facility] Work Phone: Comment on above: Patient Position: Sitting; Cuff Location : Left Arm; Cuff Size: Standard 10-17-2022 08:49-0400 Body mass index (BMI) [Ratio] 26.2 kg/m2 Dr. Rosita Capone Work Phone: [facility] 10-17-2022 08:49-0400 Body temperature 97.2 [degF] Dr. Rosita Capone Work Phone: [facility] 10-17-2022 08:49-0400 Body weight 83.[address] Rosita Capone Work Phone: [facility] 10-17-2022 08:49-0400 Diastolic blood pressure 90 mm[Hg] Dr. Rosita Capone Work Phone: [facility] 10-17-2022 08:49-0400 Heart rate 69 /min Dr. Rosita Capone Work Phone: [facility] 10-17-2022 08:49-0400 Respiratory rate 18 /min Dr. Rosita Capone Work Phone: [facility] 10-17-2022 08:49-0400 SaO2% (BldA) [Mass fraction] 96 % Dr. Rosita Capone Work Phone: [facility] 10-17-2022 08:49-0400 Systolic blood pressure 142 mm[Hg] Dr. Rosita Capone Work Phone: [facility] 10-05-2022 11:01-0400 Body height 179.07 cm [facility]; [facility] Work Phone: 10-05-2022 11:01-0400 Body mass index (BMI) [Ratio] 25.52 kg/m2 [facility]; [facility] Work Phone: 10-05-2022 11:01-0400 Body surface area Derived from formula 2.01 m2 [facility]; [facility] Work Phone: 10-05-2022 11:01-0400 Body temperature 97.1 [degF] [facility]; [facility] Work Phone: 10-05-2022 11:01-0400 Body weight 81.82 kg [facility]; [facility] Work Phone: 10-05-2022 11:01-0400 Diastolic blood [facility] 80 mm[Hg] [facility]; [facility] Work Phone: Comment on above: Patient Position: Sitting; Cuff Location : Left Arm; Cuff Size: Standard 10-05-2022 11:01-0400 Heart rate 69 /min [facility]; [facility] Work Phone: Comment on above: Pattern: Regular 10-05-2022 11:01-0400 SaO2% (BldA) [Mass fraction] 97 % [facility]; [facility] Work Phone: Comment on above: Room air 10-05-2022 11:01-0400 Systolic blood pressure 134 mm[Hg] [facility]; [facility] Work Phone: Comment on above: Patient Position: Sitting; Cuff Location : Left Arm; Cuff Size: Standard 07-16-2022 09:52-0400 Body height 179.07 cm Lou Shah LPN [facility]; [facility] Work Phone: 07-16-2022 09:52-0400 Body mass index (BMI) [Ratio] 25.66 kg/m2 Lou Shah [facility]; [facility] Work Phone: 07-16-2022 09:52-0400 Body surface area Derived from formula 2.01 m2 Lou Shah [facility]; [facility] Work Phone: 07-16-2022 09:52-0400 Body temperature 98.1 [degF] Lou Shah [facility]; [facility] Work Phone: 07-16-2022 09:52-0400 Body weight 82.27 kg Lou Shah HEALTH EDUCATION ASSISTANT [facility]; [facility] Work Phone: 07-16-2022 09:52-0400 Diastolic blood pressure 90 mm[Hg] Lou Shah HEALTH EDUCATION ASSISTANT [facility]; [facility] Work Phone: Comment on above: Patient Position: Sitting; Cuff Location : Left Arm; Cuff Size: Standard 07-16-2022 09:52-0400 Heart rate 81 /min Lou Shah HEALTH EDUCATION ASSISTANT [facility]; [facility] Work Phone: Comment on above: Pattern: Regular 07-16-2022 09:52-0400 Respiratory rate 16 /min Lou Shah [facility]; [facility] Work Phone: Comment on above: Pattern: Unlabored 07-16-2022 09:52-0400 SaO2% (BldA) [Mass fraction] 99 % Lou Shah HEALTH EDUCATION ASSISTANT [facility]; [facility] Work Phone: Comment on above: Room air 07-16-2022 09:52-0400 Systolic blood pressure 140 mm[Hg] Lou Shah [facility]; [facility] Work Phone: Comment on above: Patient Position: Sitting; Cuff Location : Left Arm; Cuff Size: Standard 06-08-2022 09:28-0500 Body height 179.07 cm [facility]; [facility] Work Phone: 06-08-2022 09:28-0500 Body mass index (BMI) [Ratio] 26.2 kg/m2 [facility]; [facility] Work Phone: 06-08-2022 09:28-0500 Body surface area Derived from formula 2.03 m2 [facility]; [facility] Work Phone: 06-08-2022 09:28-0500 Body temperature 96.9 [degF] [facility]; [facility] Work Phone: 06-08-2022 09:28-0500 Body weight 84.03 kg [facility]; [facility] Work Phone: 06-08-2022 09:28-0500 Diastolic blood pressure 80 mm[Hg] [facility]; [facility] Work Phone: Comment on above: Patient Position: Sitting; Cuff Location : Left Arm; Cuff Size: Standard 06-08-2022 09:28-0500 Heart rate 63 /min [facility]; [facility] Work Phone: Comment on above: Pattern: Regular 06-08-2022 09:28-0500 Respiratory rate 16 /min [facility]; [facility] Work Phone: Comment on above: Pattern: Unlabored 06-08-2022 09:28-0500 SaO2% (BldA) [Mass fraction] 98 % [facility]; [facility] Work Phone: Comment on above: Room air 06-08-2022 09:28-0500 Systolic blood pressure 140 mm[Hg] [facility]; [facility] Work Phone: Comment on above: Patient Position: Sitting; Cuff Location : Left Arm; Cuff Size: Standard 12-19-2021 11:45-0400 Body height 177.8 cm [facility] Work Phone: 12-19-2021 11:45-0400 Body mass index (BMI) [Ratio] 26.5 kg/m2 [facility] Work Phone: 12-19-2021 11:45-0400 Body temperature 97 [degF] [facility] Work Phone: 12-19-2021 11:45-0400 Body weight 83.91 kg [facility] Work Phone: 12-19-2021 11:45-0400 Diastolic blood pressure 108 mm[Hg] [facility] Work Phone: 12-19-2021 11:45-0400 Heart rate 98 /min [facility] Work Phone: 12-19-2021 11:45-0400 Respiratory rate 18 /min [facility] Work Phone: 12-19-2021 11:45-0400 SaO2% (BldA) [Mass fraction] 90 % [facility] Work Phone: 12-19-2021 11:45-0400 Systolic blood pressure 160 mm[Hg] [facility] Work Phone: 06-07-2021 11:18-0500 Body height 179.07 cm Vanita Blankenship [facility]; [facility] Work Phone: 06-07-2021 11:18-0500 Body mass index (BMI) [Ratio] 24.9 kg/m2 Vanita Blankenship [facility]; [facility] Work Phone: 06-07-2021 11:18-0500 Body surface area Derived from formula 1.99 m2 Vanita Blankenship [facility]; [facility] Work Phone: 06-07-2021 11:18-0500 Body temperature 97.3 [degF] Vanita Blankenship [facility]; [facility] Work Phone: Comment on above: Method: Infrared 06-07-2021 11:18-0500 Body weight 79.83 kg Vanita Blankenship [facility]; [facility] Work Phone: 06-07-2021 11:18-0500 Diastolic blood pressure 84 mm[Hg] Vanita Blankenship [facility]; [facility] Work Phone: Comment on above: Patient Position: Sitting; Cuff Location : Left Arm; Cuff Size: Standard 06-07-2021 11:18-0500 Heart rate 84 /min Vanita Blankenship [facility]; [facility] Work Phone: Comment on above: Pattern: Regular 06-07-2021 11:18-0500 Respiratory rate 18 /min Vanita Blankenship [facility]; [facility] Work Phone: Comment on above: Pattern: Unlabored 06-07-2021 11:18-0500 SaO2% (BldA) [Mass fraction] 98 % Vanita Blankenship [facility]; [facility] Work Phone: Comment on above: Room air 06-07-2021 11:18-0500 Systolic blood pressure 138 mm[Hg] Vanita Blankenship [facility]; [facility] Work Phone: Comment on above: Patient Position: Sitting; Cuff Location : Left Arm; Cuff Size: Standard 12-13-2020 09:43-0400 Body height 179.07 cm Rach Slarb HEALTH EDUCATION ASSISTANT [facility]; [facility] Work Phone: Comment on above: pt reported 12-13-2020 09:43-0400 Body mass index (BMI) [Ratio] 24.9 kg/m2 Rach Slarb HEALTH EDUCATION ASSISTANT [facility]; [facility] Work Phone: Comment on above: pt reported 12-13-2020 09:43-0400 Body surface area Derived from formula 1.99 m2 Rach Slarb HEALTH EDUCATION ASSISTANT [facility]; [facility] Work Phone: Comment on above: pt reported 12-13-2020 09:43-0400 Body temperature 98 [degF] Rach Slarb HEALTH EDUCATION ASSISTANT [facility]; [facility] Work Phone: Comment on above: pt reported 12-13-2020 09:43-0400 Body weight 79.83 kg Rach Slarb HEALTH EDUCATION ASSISTANT [facility]; [facility] Work Phone: Comment on above: pt reported 12-12-2020 11:52-0400 Body height 179.07 cm Lou Shah HEALTH EDUCATION ASSISTANT [facility]; [facility] Work Phone: 12-12-2020 11:52-0400 Body mass index (BMI) [Ratio] 24.9 kg/m2 Lou Alyssa HEALTH EDUCATION ASSISTANT [facility]; [facility] Work Phone: 12-12-2020 11:52-0400 Body surface area Derived from formula 1.99 m2 Lou Alyssa HEALTH EDUCATION ASSISTANT [facility]; [facility] Work Phone: 12-12-2020 11:52-0400 Body temperature 98 [degF] Lou hSah LPN [facility]; [facility] Work Phone: Comment on above: Method: Temporal 12-12-2020 11:52-0400 Body weight 79.83 kg Lou Shah LPN [facility]; [facility] [...] above: 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 03-09-2020 09:49-0500 BMI (Body Mass Index) 26.17 kg/m2 Rosita Capone [facility]; [facility] Work Phone: 03-09-2020 09:49-0500 Body Temperature 98.1 [degF] Rosita Capone DO Work Phone: [facility]; [facility] Work Phone: Comment on above: Method: Oral 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 03-09-2020 09:49-0500 Body weight 79.83 kg Rosita Capone DO Work Phone: [facility]; [facility] Work Phone: Comment on above: 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 03-09-2020 09:49-0500 Body weight 83.92 kg Rosita Liborio [facility] Internal Medicine; [facility] Work Phone: 03-09-2020 09:49-0500 BP Diastolic 72 mm[Hg] Rosita Capone DO Work Phone: [facility]; [facility] Work Phone: Comment on above: Patient Position: 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 03-09-2020 09:49-0500 BP Systolic 126 mm[Hg] Rosita Capone DO Work Phone: [facility]; [facility] Work Phone: Comment on above: Patient Position: Sitting 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 03-09-2020 09:49-0500 BSA (Body Surface Area) 1.99 m2 Rosita Capone DO Work Phone: [facility]; [facility] Work Phone: Comment on above: 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 03-09-2020 09:49-0500 BSA (Body Surface Area) 2.03 m2 Rosita Capone [facility]; [facility] Work Phone: 03-09-2020 09:49-0500 Height 179.07 cm Rosita Capone DO Work Phone: [facility]; [facility] Work Phone: Comment on above: 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 03-09-2020 09:49-0500 Pulse (Heart Rate) 66 /min Rosita Capone DO Work Phone: [facility]; [facility] Work Phone: Comment on above: Pattern: Regular 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 03-09-2020 09:49-0500 Respiratory Rate 16 /min Rosita Capone DO Work Phone: [facility]; [facility] Work Phone: Comment on above: Pattern: Unlabored 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 02-18-2020 07:37-0500 BMI (Body Mass Index) 26.17 kg/m2 [facility] Internal Medicine Work Phone: 02-18-2020 07:37-0500 Body weight 83.92 kg [facility] Internal Medicine Work Phone: 02-18-2020 07:37-0500 [facility] Work Phone: 02-18-2020 07:37-0500 [facility] Work Phone: 03-06-2019 14:17-0500 BMI (Body Mass Index) 26.17 kg/m2 Jovita Calix RN [facility] Internal Medicine Work Phone: [...] SaO2% (BldA) [Mass fraction] 97 % Jovita Claix RN [facility]; [facility] Work Phone: Comment on above: Room air home range [phone] 11-20-2018 14:46-0400 BMI (Body Mass Index) 25.32 kg/m2 [facility] Medicine Work Phone: 11-20-2018 14:46-0400 Body weight 81.19 kg [facility] Work Phone: 11-20-2018 14:46-0400 BP Diastolic 86 mm[Hg] [facility] Work Phone: Comment on above: Patient Position: Sitting; Cuff Location : Left Arm; Cuff Size: Standard 11-20-2018 14:46-0400 BP Systolic 124 mm[Hg] [facility] Work Phone: Comment on above: Patient Position: Sitting; Cuff Location : Left Arm; Cuff Size: Standard 11-20-2018 14:46-0400 BSA (Body Surface Area) 2 m2 [facility] Work Phone: 11-20-2018 14:46-0400 Height 179.07 cm [facility] Work Phone: 11-20-2018 14:46-0400 Pulse (Heart Rate) 72 /min [facility] Work Phone: Comment on above: Pattern: Regular 11-20-2018 14:46-0400 Pulse Oximetry 98 % Rosita Capone [facility] Work Phone: Comment on above: Room air 11-20-2018 14:46-0400 Respiratory Rate 16 /min [place] Law [facility] Internal Medicine Work Phone: Comment on above: Pattern: Unlabored 11-20-2018 14:46-0400 SaO2% (BldA) [Mass fraction] 98 % Ninos[place] Law [facility]; [facility] Work Phone: Comment on above: Room air 09-24-2018 08:15-0400 BMI (Body Mass Index) 25.32 kg/m2 Vanita Blankenship [facility] Internal Medicine Work Phone: 09-24-2018 08:15-0400 Body Temperature 97.5 [degF] Vanita Blankenship [facility] Internal Medicine Work Phone: Comment on above: Method: Rectal 09-24-2018 08:15-0400 Body weight 81.19 kg Vanita Blankenship [facility] Internal Medicine Work Phone: 09-24-2018 08:15-0400 BP Diastolic 92 mm[Hg] Vanita Blankenship [facility] Work Phone: Comment on above: Patient Position: Sitting; Cuff Location : Left Arm; Cuff Size: Standard 09-24-2018 08:15-0400 BP Systolic 142 mm[Hg] Vanita Blankenship [facility] Medicine Work Phone: Comment on above: Patient Position: Sitting; Cuff Location : Left Arm; Cuff Size: Standard 09-24-2018 08:15-0400 BSA (Body Surface Area) 2 m2 Vanita Blankenship [facility] Medicine Work Phone: 09-24-2018 08:15-0400 Height 179.07 cm Vanita Blankenship [facility] Medicine Work Phone: 09-24-2018 08:15-0400 Pulse (Heart Rate) 66 /min Vanita Blankenship [facility] Medicine Work Phone: Comment on above: Pattern: Regular 09-24-2018 08:15-0400 Pulse Oximetry 97 % Rosita Capone [facility] Internal Medicine Work Phone: Comment on above: Room air 09-24-2018 08:15-0400 Respiratory Rate 18 /min Vanita Blankenship [facility] Work Phone: Comment on above: Pattern: Unlabored 09-24-2018 08:15-0400 SaO2% (BldA) [Mass fraction] 97 % Vanita Blankenship [facility]; [facility] Work Phone: Comment on above: Room air 09-24-2018 08:15-0400 Weight 81.19 kg Rosita Capone [facility] Medicine Work Phone: 07-09-2018 09:03-0400 BMI (Body Mass Index) 25.18 kg/m2 George Francis LPN [facility] Work Phone: 07-09-2018 09:03-0400 Body Temperature 98 [degF] George Francis LPN [facility] Internal Medicine Work Phone: Comment on above: Method: Temporal 07-09-2018 09:03-0400 Body weight 80.74 kg George Francis LPN [facility] Internal Medicine Work Phone: 07-09-2018 09:03-0400 BP Diastolic 70 mm[Hg] George Francis LPN [facility] Internal Medicine Work Phone: Comment on above: Patient Position: Sitting; Cuff Location : Left Arm; Cuff Size: Standard 07-09-2018 09:03-0400 BP Systolic 128 mm[Hg] George Francis LPN [facility] Internal Medicine Work Phone: Comment on above: Patient Position: Sitting; Cuff Location : Left Arm; Cuff Size: Standard 07-09-2018 09:03-0400 BSA (Body Surface Area) 2 m2 George Francis LPN [facility] Internal Medicine Work Phone: 07-09-2018 09:03-0400 Height 179.07 cm George Francis LPN [facility] Internal Medicine Work Phone: 07-09-2018 09:03-0400 Pulse (Heart Rate) 51 /min George Francis LPN [facility] Work Phone: Comment on above: Pattern: Regular 07-09-2018 09:03-0400 Pulse Oximetry 98 % Rosita Capone [facility] Internal Medicine Work Phone: Comment on above: Room air 07-09-2018 09:03-0400 Respiratory Rate 16 /min George Francis LPN [facility] Internal Medicine Work Phone: Comment on above: Pattern: Unlabored 07-09-2018 09:03-0400 SaO2% (BldA) [Mass fraction] 98 % George Francis LPN [facility] Internal Medicine; [facility] Work Phone: Comment on above: Room air 07-09-2018 09:03-0400 Weight 80.74 kg Rosita Capone [facility] Internal Medicine Work Phone: 12-16-2017 15:04-0400 BMI (Body Mass Index) 25.18 kg/m2 Vanita Blankenship [facility] Internal Medicine Work Phone: 12-16-2017 15:04-0400 Body Temperature 98 [degF] Vanita Blankenship [facility] Internal Medicine Work Phone: Comment on above: Method: Temporal 12-16-2017 15:04-0400 Body weight 80.74 kg Vanita Blankenship [facility] Internal Medicine Work Phone: 12-16-2017 15:04-0400 BP Diastolic 80 mm[Hg] Vanita Blankenship [facility] Internal Medicine Work Phone: Comment on above: Patient Position: Sitting; Cuff Location : Left Arm; Cuff Size: Standard 12-16-2017 15:04-0400 BP Systolic 114 mm[Hg] Vanita Blankenship [facility] Internal Medicine Work Phone: Comment on above: Patient Position: Sitting; Cuff Location : Left Arm; Cuff Size: Standard 12-16-2017 15:04-0400 BSA (Body Surface Area) 2 m2 Vanita Blankenship [facility] Internal Medicine Work Phone: 12-16-2017 15:04-0400 Height 179.07 cm Vanita Blankenship [facility] Internal Medicine Work Phone: 12-16-2017 15:04-0400 Pulse (Heart Rate) 69 /min Vanita Blankenship [facility] Internal Medicine Work Phone: Comment on above: Pattern: Regular 12-16-2017 15:04-0400 Pulse Oximetry 98 % Rosita Capone [facility] Work Phone: Comment on above: Room air 12-16-2017 15:04-0400 Respiratory Rate 16 /min Vanita Blankenship [facility] Work Phone: Comment on above: Pattern: Unlabored 12-16-2017 15:04-0400 SaO2% (BldA) [Mass fraction] 98 % Vanita Blankenship [facility]; [facility] Work Phone: Comment on above: Room air 12-16-2017 15:04-0400 Weight 80.74 kg Rosita Capone [facility] Work Phone: 12-13-2017 07:21-0400 BMI (Body Mass Index) 25.34 kg/m2 Camilo Smith RN [facility] Work Phone: Comment on above: [facility] 12-13-2017 07:21-0400 Body Temperature 97.9 [degF] Camilo Smith RN [facility] Work Phone: Comment on above: Method: Temporal [facility] a nd had [facility] 12-13-2017 07:21-0400 Body weight 81.25 kg Camilo Smith RN [facility] Work Phone: Comment on above: [facility] 12-13-2017 07:21-0400 BP Diastolic 82 mm[Hg] Camilo Smith RN [facility] Work Phone: Comment on above: Patient Position: Sitting; Cuff Location : Left Arm; Cuff Size: Large [facility] a nd had a [facility] 12-13-2017 07:21-0400 BP Systolic 120 mm[Hg] Camilo Smith RN [facility] Work Phone: Comment on above: Patient Position: Sitting; Cuff Location : Left Arm; Cuff Size: Large [facility] a nd had a [facility] 12-13-2017 07:21-0400 BSA (Body Surface Area) 2 m2 Camilo Smith RN [facility] Work Phone: Comment on above: [facility] 12-13-2017 07:21-0400 Height 179.07 cm Camilo Smith RN [facility] Work Phone: Comment on above: [facility] glaucoma [facility] 12-13-2017 07:21-0400 Pulse (Heart Rate) 78 /min Camilo Smith RN [facility] Work Phone: Comment on above: Pattern: Regular [facility] [place] [facility] 12-13-2017 07:21-0400 Pulse Oximetry 98 % Rosita Capone [facility] Work Phone: Comment on above: Room air [facility] [place] nd [facility] 12-13-2017 07:21-0400 Respiratory Rate 18 /min Camilo Smith RN [facility] Work Phone: Comment on above: Pattern: Unlabored [facility] a nd had a glaucoma [facility] 12-13-2017 07:21-0400 SaO2% (BldA) [Mass fraction] 98 % Camilo Smith RN [facility]; [facility] Work Phone: Comment on above: Room air [facility] a nd had a [facility] 12-13-2017 07:21-0400 Weight 81.25 kg Rosita Capone [facility] Work Phone: Comment on above: [facility] [place] and had a glaucoma te [facility]hearing [facility] 11-18-2017 14:08-0400 BMI (Body Mass Index) 25.64 kg/m2 Camilo Smith RN [facility] Work Phone: 11-18-2017 14:08-0400 Body weight 82.22 kg Camilo Smith RN [facility] Work Phone: 11-18-2017 14:08-0400 BP Diastolic 80 mm[Hg] Camilo Smith RN [facility] Work Phone: Comment on above: Patient Position: Sitting; Cuff Location : Left Arm; Cuff Size: Standard 08-20-2018 14:08-0400 BP Systolic 122 mm[Hg] Camilo Smith RN [facility] Work Phone: Comment on above: Patient Position: Sitting; Cuff Location : Left Arm; Cuff Size: Standard 11-18-2017 14:08-0400 BSA (Body Surface Area) 2.01 m2 Camilo Smith RN [facility] Work Phone: 11-18-2017 14:08-0400 Height 179.07 cm Camilo Smith RN [facility] Work Phone: 11-18-2017 14:08-0400 Pulse (Heart Rate) 74 /min Camilo Smith RN [facility] Work Phone: Comment on above: Pattern: Regular 11-18-2017 14:08-0400 Pulse Oximetry 97 % Rosita Capone [facility] Work Phone: Comment on above: Room air 11-18-2017 14:08-0400 Respiratory Rate 18 /min Camilo Smith RN [facility] Work Phone: Comment on above: Pattern: Unlabored 11-18-2017 14:08-0400 SaO2% (BldA) [Mass fraction] 97 % Camilo Smith RN [facility]; [facility] Work Phone: Comment on above: Room air 11-18-2017 14:08-0400 Weight 82.22 kg Rosita Capone [facility] Work Phone: 05-22-2017 10:29-0500 BMI (Body Mass Index) 25.6 kg/m2 Jovita Calix RN [facility] Work Phone: 05-22-2017 10:29-0500 [...] BSA (Body Surface Area) 2.01 m2 Jovita Calix RN [facility] [...] 11:04-0500 BMI (Body Mass Index) 26.05 kg/m2 Camilo Smith RN [facility] Work Phone: 03-13-2017 11:04-0500 Body weight 83.52 kg Camilo Smith RN [facility] Work Phone: 03-13-2017 11:04-0500 BP Diastolic 98 mm[Hg] Camilo Smith RN [facility] Work Phone: Comment on above: Patient Position: Sitting; Cuff Location : Left Arm; Cuff Size: Standard 03-13-2017 11:04-0500 BP Systolic 158 mm[Hg] Camilo Smith RN [facility] Work Phone: Comment on above: Patient Position: Sitting; Cuff Location : Left Arm; Cuff Size: Standard 03-13-2017 11:04-0500 BSA (Body Surface Area) 2.03 m2 Camilo Smith RN [facility] Work Phone: 03-13-2017 11:04-0500 Height 179.07 cm Camilo Smith RN [facility] Work Phone: 03-13-2017 11:04-0500 Pulse (Heart Rate) 74 /min Camilo Smith RN [facility] Work Phone: Comment on above: Pattern: Regular 03-13-2017 11:04-0500 Pulse Oximetry 98 % Rosita Capone [facility] Work Phone: Comment on above: Room air 03-13-2017 11:04-0500 Respiratory Rate 18 /min Camilo Smith RN [facility] Work Phone: Comment on above: Pattern: Unlabored 03-13-2017 11:04-0500 SaO2% (BldA) [Mass fraction] 98 % Camilo Smith RN [facility]; [facility] Work Phone: Comment on above: Room air 03-13-2017 11:04-0500 Weight 83.52 kg Rosita Hensleyon [facility] Work Phone: 03-01-2017 08:53-0500 BMI (Body Mass Index) 25.89 kg/m2 Camilo Smith RN [facility] Work Phone: 03-01-2017 08:53-0500 Body weight 83.01 kg Camilo Smith RN [facility] Work Phone: 03-01-2017 08:53-0500 BP Diastolic 98 mm[Hg] Camilo Smith RN [facility] Work Phone: Comment on above: Patient Position: Sitting; Cuff Location : Left Arm; Cuff Size: Large 03-01-2017 08:53-0500 BP Systolic 158 mm[Hg] Camilo Smith RN [facility] Work Phone: Comment on above: Patient Position: Sitting; Cuff Location : Left Arm; Cuff Size: Large 03-01-2017 08:53-0500 BSA (Body Surface Area) 2.02 m2 Camilo Smith RN [facility] Work Phone: 03-01-2017 08:53-0500 Height 179.07 cm Camilo Smith RN [facility] Work Phone: 03-01-2017 08:53-0500 Pulse (Heart Rate) 69 /min Camilo Smith RN [facility] Work Phone: Comment on above: Pattern: Regular 03-01-2017 08:53-0500 Pulse Oximetry 99 % Rosita Capone [facility] Work Phone: Comment on above: Room air 03-01-2017 08:53-0500 Respiratory Rate 18 /min Camilo Smith RN [facility] Work Phone: Comment on above: Pattern: Unlabored 03-01-2017 08:53-0500 SaO2% (BldA) [Mass fraction] 99 % Camilo Smith RN [facility]; [facility] Work Phone: Comment on above: Room air 03-01-2017 08:53-0500 Weight 83.01 kg Rosita Capone [facility] Work Phone: 02-27-2017 10:00-0500 BMI (Body Mass Index) 26.17 kg/m2 Rach Slarb HEALTH EDUCATION ASSISTANT [facility] Internal Medicine Work Phone: 02-27-2017 10:00-0500 Body Temperature 97.2 [degF] Rach Slarb HEALTH EDUCATION ASSISTANT [facility] Work Phone: 02-27-2017 10:00-0500 Body weight 83.92 kg Rach Slarb HEALTH EDUCATION ASSISTANT [facility] Work Phone: 02-27-2017 10:00-0500 BP Diastolic 84 mm[Hg] Rach Slarb HEALTH EDUCATION ASSISTANT [facility] Work Phone: Comment on above: Patient Position: Sitting; Cuff Location : Left Arm; Cuff Size: Standard 02-27-2017 10:00-0500 BP Systolic 132 mm[Hg] Rach Slarb HEALTH EDUCATION ASSISTANT [facility] Work Phone: Comment on above: Patient Position: Sitting; Cuff Location : Left Arm; Cuff Size: Standard 02-27-2017 10:00-0500 BSA (Body Surface Area) 2.03 m2 Rach Slarb HEALTH EDUCATION ASSISTANT [facility] Medicine Work Phone: 02-27-2017 10:00-0500 Height 179.07 cm Rach Slarb HEALTH EDUCATION ASSISTANT [facility] Work Phone: 02-27-2017 10:00-0500 Pulse (Heart Rate) 73 /min Rach Pineda LPN [facility] Work Phone: Comment on above: Pattern: Regular 02-27-2017 10:00-0500 Pulse Oximetry 98 % Rosita Capone [facility] Work Phone: Comment on above: Room air 02-27-2017 10:00-0500 Respiratory Rate 18 /min Rach Pineda MIKE [facility] Work Phone: Comment on above: Pattern: Unlabored 02-27-2017 10:00-0500 SaO2% (BldA) [Mass fraction] 98 % Rach Edwin MCKEON [facility]; [facility] Work Phone: Comment on above: Room air 02-27-2017 10:00-0500 Weight 83.92 kg Rosita Hensleyon [facility] Work Phone: 04-27-2016 14:06-0500 BMI (Body Mass Index) 25.6 kg/m2 Camilo Smith RN [facility] Work Phone: 04-27-2016 14:06-0500 Body Temperature 98.2 [degF] Camilo Smith RN [facility] Work Phone: Comment on above: Method: Temporal 04-27-2016 14:06-0500 Body weight 82.1 kg Camilo Smith RN [facility] Work Phone: 04-27-2016 14:06-0500 BP Diastolic 86 mm[Hg] Camilo Smith RN [facility] Work Phone: Comment on above: Patient Position: Sitting; Cuff Location : Left Arm; Cuff Size: Standard 04-27-2016 14:06-0500 BP Systolic 140 mm[Hg] Camilo Smith RN [facility] Work Phone: Comment on above: Patient Position: Sitting; Cuff Location : Left Arm; Cuff Size: Standard 04-27-2016 14:06-0500 BSA (Body Surface Area) 2.01 m2 Camilo Smith RN [facility] Work Phone: 04-27-2016 14:06-0500 Height 179.07 cm Camilo Smith RN [facility] Work Phone: 04-27-2016 14:06-0500 Pulse (Heart Rate) 79 /min Camilo Smith RN [facility] Work Phone: Comment on above: Pattern: Regular 04-27-2016 14:06-0500 Pulse Oximetry 98 % Rosita Capone [facility] Work Phone: Comment on above: Room air 04-27-2016 14:06-0500 Respiratory Rate 18 /min Camilo Smith RN [facility] Work Phone: Comment on above: Pattern: Unlabored 04-27-2016 14:06-0500 SaO2% (BldA) [Mass fraction] 98 % Camilo Smith RN [facility]; [facility] Work Phone: Comment on above: Room air 04-27-2016 14:06-0500 Weight 82.1 kg Rosita Capone [facility] Work Phone: 01-12-2016 10:25-0400 BMI (Body Mass Index) 25.6 kg/m2 Rosita Liborio DO Work Phone: [facility] Work Phone: 01-12-2016 10:25-0400 Body weight 82.1 kg Rosita Hensleyon DO Work Phone: [facility] Work [...] (Body Surface Area) 2.01 m2 Rosita Capone DO Work Phone: [facility] Work Phone: 01-12-2016 10:25-0400 Height 179.07 cm Rosita Capone DO Work [...] 13:29-0500 BMI (Body Mass Index) 26.03 kg/m2 Camilo Smith RN [facility] Work Phone: 05-16-2015 13:29-0500 Body weight 83.46 kg Camilo Smith RN [facility] Work Phone: 05-16-2015 13:29-0500 BP Diastolic 90 mm[Hg] Camilo Smith RN [facility] Work Phone: Comment on above: Patient Position: Sitting; Cuff Location : Left Arm; Cuff Size: Large 05-16-2015 13:29-0500 BP Systolic 138 mm[Hg] Camilo Smith RN [facility] Work Phone: Comment on above: Patient Position: Sitting; Cuff Location : Left Arm; Cuff Size: Large 05-16-2015 13:29-0500 BSA (Body Surface Area) 2.03 m2 Camilo Smith RN [facility] Work Phone: 05-16-2015 13:29-0500 Height 179.07 cm Camilo Smith RN [facility] Work Phone: 05-16-2015 13:29-0500 Pulse (Heart Rate) 68 /min Camilo Smith RN [facility] Work Phone: Comment on above: Pattern: Regular 05-16-2015 13:29-0500 Pulse Oximetry 98 % Rosita Liborio [facility] Work Phone: Comment on above: Room air 05-16-2015 13:29-0500 Respiratory Rate 18 /min Camilo Smith RN [facility] Work Phone: Comment on above: Pattern: Unlabored 05-16-2015 13:29-0500 SaO2% (BldA) [Mass fraction] 98 % Camilo Smith RN [facility]; [facility] Work Phone: Comment on above: Room air 05-16-2015 13:29-0500 Weight 83.46 kg Rosita Liborio [facility] Work Phone: 04-04-2015 15:06-0500 BMI (Body Mass Index) 25.48 kg/m2 Camilo Smith RN [facility] Work Phone: 04-04-2015 15:06-0500 Body Temperature 97.6 [degF] Camilo Smith RN [facility] Work Phone: Comment on above: Method: Temporal 04-04-2015 15:06-0500 Body weight 81.7 kg Camilo Smith RN [facility] Work Phone: 04-04-2015 15:06-0500 BP Diastolic 78 mm[Hg] Camilo Smith RN [facility] Work Phone: Comment on above: Patient Position: Sitting; Cuff Location : Left Arm; Cuff Size: Large 04-04-2015 15:06-0500 BP Systolic 122 mm[Hg] Camilo Smith RN [facility] Work Phone: Comment on above: Patient Position: Sitting; Cuff Location : Left Arm; Cuff Size: Large 04-04-2015 15:06-0500 BSA (Body Surface Area) 2.01 m2 Camilo Smith RN [facility] Work Phone: 04-04-2015 15:06-0500 Height 179.07 cm Camilo Smith RN [facility] Work Phone: 04-04-2015 15:06-0500 Pulse (Heart Rate) 61 /min Camilo Smith RN [facility] Work Phone: Comment on above: Pattern: Regular 04-04-2015 15:06-0500 Pulse Oximetry 98 % Rosita Capone [facility] Work Phone: Comment on above: Room air 04-04-2015 15:06-0500 Respiratory Rate 18 /min Camilo Smith RN [facility] Work Phone: Comment on above: Pattern: Unlabored 04-04-2015 15:06-0500 SaO2% (BldA) [Mass fraction] 98 % Camilo Smith RN [facility]; [facility] Work Phone: Comment on above: Room air 04-04-2015 15:06-0500 Weight 81.7 kg Rosita Liborio [facility] Work Phone: 03-23-2015 10:43-0500 BMI (Body Mass Index) 24.93 kg/m2 Rach Slarb HEALTH EDUCATION ASSISTANT [facility] Medicine Work Phone: 03-23-2015 10:43-0500 Body Temperature 98.2 [degF] Rach Slarb HEALTH EDUCATION ASSISTANT [facility] Work Phone: 03-23-2015 10:43-0500 Body weight 79.95 kg Rach Slarb HEALTH EDUCATION ASSISTANT [facility] Work Phone: 03-23-2015 10:43-0500 BP Diastolic 82 mm[Hg] Rach Slarb HEALTH EDUCATION ASSISTANT [facility] Work Phone: Comment on above: Patient Position: Sitting; Cuff Location : Left Arm; Cuff Size: Standard 03-23-2015 10:43-0500 BP Systolic 118 mm[Hg] Rach Pineda LPN [facility] Work Phone: Comment on above: Patient Position: Sitting; Cuff Location : Left Arm; Cuff Size: Standard 03-23-2015 10:43-0500 BSA (Body Surface Area) 1.99 m2 Rach Pineda LPN [facility] Work Phone: 03-23-2015 10:43-0500 Height 179.07 cm Rach Pineda LPN [facility] Work Phone: 03-23-2015 10:43-0500 Pulse (Heart Rate) 91 /min Rach Pineda LPN [facility] Work Phone: Comment on above: Pattern: Regular 03-23-2015 10:43-0500 Pulse Oximetry 98 % Rosita Capone [facility] Work Phone: Comment on above: Room air 03-23-2015 10:43-0500 Respiratory Rate 18 /min Rach Pineda LPN [facility] Work Phone: Comment on above: Pattern: Unlabored 03-23-2015 10:43-0500 SaO2% (BldA) [Mass fraction] 98 % Rach Pineda HEALTH EDUCATION ASSISTANT [facility]; [facility] Work Phone: Comment on above: Room air 03-23-2015 10:43-0500 Weight 79.95 kg Rosita Liborio [facility] Work Phone: 03-14-2015 11:44-0500 BMI (Body Mass Index) 25.34 kg/m2 Camilo Smith RN [facility] Work Phone: 03-14-2015 11:44-0500 Body weight 81.25 kg Camilo Smith RN [facility] Work Phone: 03-14-2015 11:44-0500 BP Diastolic 84 mm[Hg] Camilo Smith RN [facility] Work Phone: Comment on above: Patient Position: Sitting; Cuff Location : Left Arm; Cuff Size: Standard 03-14-2015 11:44-0500 BP Systolic 122 mm[Hg] Camilo Smith RN [facility] Work Phone: Comment on above: Patient Position: Sitting; Cuff Location : Left Arm; Cuff Size: Standard 03-14-2015 11:44-0500 BSA (Body Surface Area) 2 m2 Camilo Smith RN [facility] Work Phone: 03-14-2015 11:44-0500 Height 179.07 cm Camilo Smith RN [facility] Work Phone: 03-14-2015 11:44-0500 Pulse (Heart Rate) 76 /min Camilo Smith RN [facility] Work Phone: Comment on above: Pattern: Regular 03-14-2015 11:44-0500 Pulse Oximetry 98 % Rosita Capone [facility] Work Phone: Comment on above: Room air 03-14-2015 11:44-0500 Respiratory Rate 16 /min Camilo Smith RN [facility] Work Phone: Comment on above: Pattern: Unlabored 03-14-2015 11:44-0500 SaO2% (BldA) [Mass fraction] 98 % Camilo Smith RN [facility]; [facility] Work Phone: Comment on above: Room air 03-14-2015 11:44-0500 Weight 81.25 kg Rositadave Capone [facility] Work Phone: 11-15-2014 14:04-0400 BMI (Body Mass Index) 25.46 kg/m2 Rach Slarb HEALTH EDUCATION ASSISTANT [facility] Internal Medicine Work Phone: 11-15-2014 14:04-0400 Body Temperature 98.2 [degF] Rach Slarb HEALTH EDUCATION ASSISTANT [facility] Work Phone: 11-15-2014 14:04-0400 Body weight 81.65 kg Rach Slarb HEALTH EDUCATION ASSISTANT [facility] Work Phone: 11-15-2014 14:04-0400 BP Diastolic 80 mm[Hg] Rach Slarb HEALTH EDUCATION ASSISTANT [facility] Work Phone: Comment on above: Patient Position: Sitting; Cuff Location : Left Arm; Cuff Size: Standard 11-15-2014 14:04-0400 BP Systolic 116 mm[Hg] Rach Pineda LPN [facility] Work Phone: Comment on above: Patient Position: Sitting; Cuff Location : Left Arm; Cuff Size: Standard 11-15-2014 14:04-0400 BSA (Body Surface Area) 2.01 m2 Rach Pineda LPN [facility] Work Phone: 11-15-2014 14:04-0400 Height 179.07 cm Rach Pineda LPN [facility] Work Phone: 11-15-2014 14:04-0400 Pulse (Heart Rate) 71 /min Rach Pineda LPN [facility] Work Phone: Comment on above: Pattern: Regular 11-15-2014 14:04-0400 Pulse Oximetry 98 % Rosita Capone [facility] Work Phone: Comment on above: Room air 11-15-2014 14:04-0400 Respiratory Rate 16 /min Rach Pineda LPN [facility] Work Phone: Comment on above: Pattern: Unlabored 11-15-2014 14:04-0400 SaO2% (BldA) [Mass fraction] 98 % Rach Pineda LPN [facility]; [facility] Work Phone: Comment on above: Room air 11-15-2014 14:04-0400 Weight 81.65 kg Rosita Capone [facility] Work Phone: 06-15-2014 11:44-0400 BMI (Body Mass Index) 25.4 kg/m2 Rosita Capone [facility] Work Phone: 06-15-2014 11:44-0400 Body Temperature 97.9 [degF] Rosita Capone [facility] Work Phone: Comment on above: Method: Oral 06-15-2014 11:44-0400 Body weight 81.45 kg Rosita Capone [facility] Work Phone: 06-15-2014 11:44-0400 BP Diastolic 90 mm[Hg] Rosita Capone [facility] Work Phone: Comment on above: Patient Position: Sitting; Cuff Location : Left Arm; Cuff Size: Standard 06-15-2014 11:44-0400 BP Systolic 148 mm[Hg] Rosita Capone [facility] Work Phone: [...] 08:12-0500 BMI (Body Mass Index) 25.4 kg/m2 Camilo Smith RN [facility] Work Phone: 03-01-2014 08:12-0500 Body weight 81.45 kg Camilo Smith RN [facility] Work Phone: 03-01-2014 08:12-0500 BP Diastolic 84 mm[Hg] Camilo Smith RN [facility] Work Phone: Comment on above: Patient Position: Sitting; Cuff Location : Left Arm; Cuff Size: Standard 03-01-2014 08:12-0500 BP Systolic 160 mm[Hg] Camilo Smith RN [facility] Work Phone: Comment on above: Patient Position: Sitting; Cuff Location : Left Arm; Cuff Size: Standard 03-01-2014 08:12-0500 BSA (Body Surface Area) 2 m2 Camilo Smith RN [facility] Work Phone: 03-01-2014 08:12-0500 Height 179.07 cm Camilo Smith RN [facility] Work Phone: 03-01-2014 08:12-0500 Pulse (Heart Rate) 113 /min Camilo Smith RN [facility] Work Phone: Comment on above: Pattern: Regular 03-01-2014 08:12-0500 Pulse Oximetry 98 % Rosita Capone [facility] Work Phone: Comment on above: Room air 03-01-2014 08:12-0500 Respiratory Rate 18 /min Camilo Smith RN [facility] Work Phone: Comment on above: Pattern: Unlabored 03-01-2014 08:12-0500 SaO2% (BldA) [Mass fraction] 98 % Camilo Smith RN [facility]; [facility] Work Phone: Comment on above: Room air 03-01-2014 08:12-0500 Weight 81.45 kg Rosita Capone [facility] Work Phone: 05-06-2012 10:08-0500 BMI (Body Mass Index) 25.5 kg/m2 Rosita Caopne [facility] Work Phone: 05-06-2012 10:08-0500 Body Temperature 98.9 [degF] Rosita Capone [facility] Work Phone: Comment on above: Method: Oral 05-06-2012 10:08-0500 Body weight 81.76 kg Rosita Capone [facility] Work Phone: 05-06-2012 10:08-0500 BP Diastolic 78 mm[Hg] Rosita Capone [facility] Work Phone: Comment on above: Patient Position: Sitting; Cuff Location : Left Arm; Cuff Size: Standard 05-06-2012 10:08-0500 BP Systolic 132 mm[Hg] Rosita Capone [facility] Work Phone: Comment on above: Patient Position: Sitting; Cuff Location : Left Arm; Cuff Size: Standard 05-06-2012 10:08-0500 BSA (Body Surface Area) 2.01 m2 Rosita Capone [facility] Work Phone: 05-06-2012 10:08-0500 Height 179.07 [facility]: 05-06-2012 10:08-0500 Pulse (Heart Rate) 78 /min [facility]: Comment on above: Pattern: Regular 05-06-2012 10:08-0500 Respiratory Rate 18 /min Rosita Capone [facility] Work Phone: 05-06-2012 10:08-0500 [facility].76 [facility] Work [facility]: 06-29-2011 11:00-0400 BMI (Body Mass Index) 25.5 kg/m2 Rosita Capone [facility] Work Phone: 06-29-2011 11:00-0400 Body Temperature 99.4 [degF] Rosita Capone [facility] Work Phone: Comment on above: Method: Oral 06-29-2011 11:00-0400 Body [facility] 81.76 [facility]: 06-29-2011 11:00-0400 BP Diastolic 78 mm[Hg] [facility]: Comment on above: Patient Position: Sitting; Cuff Location : Left Arm; Cuff Size: Standard 06-29-2011 11:00-0400 BP Systolic 132 mm[Hg] Rosita Capone [facility] Work Phone: Comment on above: Patient Position: Sitting; Cuff Location : Left Arm; Cuff Size: Standard 06-29-2011 11:00-0400 BSA (Body Surface Area) 2.01 m2 Rosita Liborio [facility] Work Phone: 06-29-2011 11:00-0400 Height 179.07 cm Rosita Capone [facility] Work Phone: 06-29-2011 11:00-0400 Pulse (Heart Rate) 74 /min Rosita Capone [facility] Work [...] 11:36-0400 BMI (Body Mass Index) 25.5 kg/m2 Camilo Smith RN [facility] Work Phone: 07-07-2010 11:36-0400 Body weight 81.76 kg Camilo Smith RN [facility] Work Phone: 07-07-2010 11:36-0400 BP Diastolic 80 mm[Hg] Camilo Smith RN [facility] Work Phone: Comment on above: Patient Position: Sitting; Cuff Location : Left Arm; Cuff Size: Large 07-07-2010 11:36-0400 BP Systolic 118 mm[Hg] Camilo Smith RN [facility] Work Phone: Comment on above: Patient Position: Sitting; Cuff Location : Left Arm; Cuff Size: Large 07-07-2010 11:36-0400 BSA (Body Surface Area) 2.01 m2 Camilo Smith RN [facility] Work Phone: 07-07-2010 11:36-0400 Height 179.07 cm Camilo Smith RN [facility] Work Phone: 07-07-2010 11:36-0400 Pulse (Heart Rate) 64 /min Camilo Smith RN [facility] Work Phone: Comment on above: Pattern: Regular 07-07-2010 11:36-0400 Respiratory Rate 20 /min Camilo Smith RN [facility] Work Phone: Comment on above: Pattern: Unlabored 07-07-2010 11:36-0400 Weight 81.76 kg Rosita Capone [facility] Work Phone: 04-12-2010 08:59-0500 BMI (Body Mass Index) 25.5 kg/m2 Camilo Smith RN [facility] Work Phone: 04-12-2010 08:59-0500 Body weight 81.76 kg Camilo Smith RN [facility] Work Phone: 04-12-2010 08:59-0500 BP Diastolic 80 mm[Hg] Camilo Smith RN [facility] Work Phone: Comment on above: Patient Position: Sitting; Cuff Location : Left Arm; Cuff Size: Large 04-12-2010 08:59-0500 BP Systolic 132 mm[Hg] Camilo Smith RN [facility] Work Phone: Comment on above: Patient Position: Sitting; Cuff Location : Left Arm; Cuff Size: Large 04-12-2010 08:59-0500 BSA (Body Surface Area) 2.01 m2 Camilo mSith RN [facility] Work Phone: 04-12-2010 08:59-0500 Height 179.07 cm Camilo Smith RN [facility] Work Phone: 04-12-2010 08:59-0500 Pulse (Heart Rate) 60 /min Camilo Smith RN [facility] Work Phone: Comment on above: Pattern: Regular 04-12-2010 08:59-0500 Respiratory Rate 20 /min Camilo Smith RN [facility] Work Phone: Comment on above: Pattern: Unlabored 04-12-2010 08:59-0500 Weight 81.76 kg Rosita Capone [facility] Work Phone: 04-04-2009 10:48-0500 Body weight 82.19 kg Camilo Smith RN [facility] Work Phone: 04-04-2009 10:48-0500 BP Diastolic 80 mm[Hg] Camilo Smith RN [facility] Work Phone: Comment on above: Patient Position: Sitting; Cuff Location : Left Arm; Cuff Size: Large 04-04-2009 10:48-0500 BP Systolic 124 mm[Hg] Camilo Smith RN [facility] Work Phone: Comment on above: Patient Position: Sitting; Cuff Location : Left Arm; Cuff Size: Large 04-04-2009 10:48-0500 Pulse (Heart Rate) 64 /min Camilo Smith RN [facility] Work Phone: Comment on above: Pattern: Regular 04-04-2009 10:48-0500 Respiratory Rate 20 /min Camilo Smith RN [facility] Work Phone: Comment on above: Pattern: Unlabored 04-04-2009 10:48-0500 Weight 82.19 kg Rosita Liborio [facility] Work Phone: 12-25-2007 07:19-0400 BMI (Body Mass Index) 24.52 kg/m2 Camilo Smith RN [facility] Work Phone: 12-25-2007 07:19-0400 Body weight 78.61 kg Camilo Smith RN [facility] Work Phone: 12-25-2007 07:19-0400 BP Diastolic 82 mm[Hg] Camilo Smith RN [facility] Work Phone: Comment on above: Patient Position: Sitting; Cuff Location : Left Arm; Cuff Size: Standard 12-25-2007 07:19-0400 BP Systolic 122 mm[Hg] Camilo Smith RN [facility] Work Phone: Comment on above: Patient Position: Sitting; Cuff Location : Left Arm; Cuff Size: Standard 12-25-2007 07:19-0400 BSA (Body Surface Area) 1.97 m2 Camilo Smith RN [facility] Work Phone: 12-25-2007 07:19-0400 Head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 <Electronically signed by Heladio Gagnon PT, Cert. TYRESE, OCS> 03/04/17 1553 CC: Alicia Cox NP CHERIE Signed For Medicare only, by signing this I certify the plan of care. _ Physicians Signature Date Rosita Capone Start: 02-27-2017 End: 02-28-2017 Knee 4 or More Views Comments: See Note; NOTES: [facility] Imaging Services [address] [place] [address] Knee 4 or More Views MR#: [id number] Acct: [id number] Name: RADHA MENG Rep #: [id number] : 1950 M 66 From: Krishna Hartley PCP: Alicia Cox Status: REG CLI Study: Knee 4 or More Views Date of Exam: 02/27/17 Exam# [id number] Ordering Dr: Alicia Cox STUDY: X-RAY - RIGHT KNEE REASON FOR EXAM: Male, 66 years old. [place] pop in knee while walking. Difficult to [...] , Service support , CC: Alicia Cox Licensed Occupational Therapist: Signed Alicia Cox Work Phone: Start: 07-19-2015 End: 07-19-2015 Hand Min 3 Views Comments: See Note; NOTES: [facility] Imaging Services [address] [place] [address] Verdana 4d Hand Min 3 Views MR#: [id number] Acct: [id number] Name: RADHA MENG Rep #: [id number] : 1950 M 65 From: Duane Jones MD PCP: Rosita Capone DO Status: REG CLI Study: Hand Min 3 Views Date of Exam: 07/19/15 Exam# [id number] Ordering Dr: Kelly Laguerre DO STUDY: X-RAY [...] FACR at 10:34 EDT , Service support [phone], RAD/Hand Min 3 Views IMPRESSION: No significant changes since the last examination. 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 [address] [place] [address] Fax REHABILITATION SERVICES DISCHARGE SUMMARY MR#: [id number] Acct: [id number] Name: RADHA MENG Rep #: [id number] : 1950 64 From: Ninoska Musa Referring Dr.: Kelly Laguerre DO Status: REG RCR Eval [...] 100 degrees, DIP flexion 65 degrees, left pigment presser strength 105 pounds. On March 02, 2015 [...] therapy. Ninoska Musa, OTR/L T: CLARISA JOB: [id number] <Electronically signed by Ninoska Musa > 03/23/15 1548 CC: Signed Rosita Capone Start: 03-23-2015 End: 03-23-2015 Kidney and Bladder Comments: See Note; NOTES: [facility] Imaging Services [address] [place] [address] Dinahdana 4d Kidney and Bladder MR#: [id number] Acct: [id number] Name: RADHA MENG Rep #: [id number] : 1950 M 64 From: Clemente Dobson DO PCP: Rosita Capone DO Status: REG CLI Study: Kidney and Bladder Date of Exam: 03/23/15 Exam# [id number] Ordering Dr: Alicia Cox STUDY: RENAL ULTRASOUND [...] Clemente Dobson DO at 21:05 EST Tel [phone], Service support [phone], CC: Alicia Cox; Harrison Lopez MD; Rosita Capone DO Licensed Occupational Therapist: Signed Alicia Cox Work Phone: Start: 03-08-2015 End: 03-08-2015 Emergency Department Summary Comments: See Note; NOTES: [facility] Medical Records Department [address] [place] [address] Emergency Department Summary MR#: [id number] Acct: [id number] Name: RADHA MENG Rep #: [id number] : 1950 64 From: Tori Saunders MD PCP: Rosita Capone DO Status: REG ER DATE OF SERVICE: 03/08/2015 CHIEF COMPLAINT: [...] colitis. Tori Saunders MD T: NTS JOB: [id number] 03/08/157 <Electronically signed by Tori Saunders MD> Date Tori Saunders MD Cosigner Signature (If Indicated): Date CC: Rosita Capone DO Date Dictated: 03/08/152245 Date Transcribed: 03/08/152245 Licensed Occupational Therapist: Signed Rosita Capone Start: 03-08-2015 End: 03-08-2015 Emergency Department Summary Comments: See Note; NOTES: [facility] Medical Records Department [address] [place] [address] Emergency Department Summary MR#: [id number] Acct: [id number] Name: RADHA MENG Rep #: [id number] : 1950 64 From: Tori Saunders MD PCP: Rosita Capone DO Status: [facility] DATE OF SERVICE: 03/07/2015 CHIEF COMPLAINT: Abdominal [...] colitis. Tori Saunders MD T: NTS JOB: [id number] 03/08/15 1528 <Electronically signed by Tori Saunders MD> Date Tori Saunders MD Cosigner Signature (If Indicated): Date CC: Rosita Capone DO Date Dictated: 03/07/15 1541 Date Transcribed: 03/07/15 154 Licensed Occupational Therapist: Signed Rosita Capone Start: 03-07-2015 End: 03-07-2015 Discharge Instruction Comments: See Note; NOTES: [facility] Medical Records Department [address] [place] [address] Discharge Instruction 03/07/15 1608 MR#: [id number] Acct: [id number] Name: RADHA MENG Rep #: [id number] : 1950 64 From: Tori Saunders MD [...] problems, contact your doctor. Call [facility] ([phone]) or report to the closest Emergency Room. Call 911 if necessary. 03/07/15 1609 <Electronically signed by Tori Saunders MD> Date Tori Saunders MD Cosigner Signature (If Indicated): Date CC: Rosita Hill Start: 03-07-2015 End: 03-07-2015 Abdomen/Pelvis WITH Contrast Comments: See Note; NOTES: [facility] Imaging Services [address] [place] [address] Verdana 4d Abdomen/Pelvis WITH Contrast MR#: [id number] Acct: [id number] Name: RADHA MENG Rep #: [id number] : 1950 64 From: Jonnathan Castillo MD PCP: Rosita Capone DO Status: REG ER Study: Abdomen/Pelvis WITH Contrast Date of Exam: 03/07/15 Exam# [id number] Ordering Dr: Troi Saunders MD STUDY: CT ABDOMEN AND PELVIS [...] Jonnathan Castillo MD at 11:41 EST Tel [phone], Service support [phone], CC: Tori Saunders MD; Rosita Capone DO Licensed Occupational Therapist: Signed Rosita Capone Start: 02-10-2015 End: 02-10-2015 Initial Evaluation - OT Comments: See Note; NOTES: [facility] Occupational Therapy [facility] [address] [place] [address]. [address] [place] [address] Fax REHABILITATION SERVICES INITIAL EVALUATION MR#: [id number] Acct: [id number] Name: RADHA MENG Rep #: [id number] : 1950 64 From: Ninoska Musa Referring DrRobbie: Kelly Laguerre DO Status: REG [facility] Insurance: [facility] Date: DATE OF SERVICE: SUBJECTIVE: This 64-year-old [...] hand very much. He is unable to pigment presser the steering wheel or turn a doorknob. 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 He is currently on light duty and [...] middle DIP flexion 75 degrees, left deferred. 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 [...] range of motion equal to right to pigment presser the steering wheel by discharge. 2. The patient will demonstrate a decrease in left middle finger edema by at least 0.5 cm to form a composite fist to turn a doorknob by discharge. 3. The patient will demonstrate with an increase in left pigment presser strength to 60 pounds, left lateral pinch [...] be designed to enhance functional abilities. Ninoska Musa OTR/L T: CLARISA JOB: [id number] <Electronically signed by Ninoska Musa > 02/10/15 1229 CC: Signed For Medicare only, by signing this I certify the plan of care. _ Physicians Signature Date Rosita Capone Start: 02-08-2015 End: 02-08-2015 Operative Report Comments: See Note; NOTES: [facility] Medical Records Department [address] [place] [address] Operative Report 01/26/15 1616 MR#: [id number] Acct: [id number] Name: RADHA MENG Rep #: [id number] : 1950 64 From: Kelly Laguerre DO PCP: Rosita Capone DO Status: [facility] Y Location: [facility] Report of Operation Date of Procedure: 01/26/15 [...] in chart This note was generated with Apps4Proation software. It may contain incorrect words, spelling, and punctuation that were not noted in checking the note before signing. 02/08/15 0913 <Electronically signed by Kelly Laguerre DO> Date Kelly Laguerre DO CC: Kelly Laguerre DO; Rosita Capone DO Signed Rosita Capone Start: 01-26-2015 End: 01-26-2015 Discharge Instruction Comments: See Note; NOTES: [facility] Medical Records Department [address] [place] [address] Instructions for Home/Discharge Instructions 01/26/15 1616 MR#: [id number] Acct: [id number] Name: RADHA MENG Rep #: [id number] : 1950 64 From: Kelly Laguerre DO PCP: Rosita Capone DO Status: REG [facility] Discharge Diet: No Restrictions - leave dressing [...] Please Follow Up With: Kelly Laguerre - [phone] 01/26/15 1616 <Electronically signed by Kelly Laguerre DO> Date Kelly Laguerre DO CC: Rosita Hill Start: 12-31-2014 End: 01-01-2015 Hand Min 3 Views Comments: See Note; NOTES: [facility] Imaging Services [address] [place] [address] Radiology Report MR#: [id number] Acct: [id number] Name: RADHA MENG Rep #: [id number] : 1950 M 64 From: Jeffrey Lynne MD PCP: Rosita Capone DO Status: REG CLI Study: Hand Min 3 Views Date of Exam: 12/31/14 Exam# [id number] Ordering Dr: Kelly Laguerre DO STUDY: X-RAY [...] at 10:15 EDT Tel , Service support [phone], RAD/Hand Min 3 Views 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 Electronically Signed: Jeffrey Lynne MD at 10:15 EDT Tel , Service support [phone], CC: Kelly Laguerre DO; Rosita Capone DO Licensed Occupational Therapist: Signed Rosita Capone Start: 05-03-2014 COLNOSCOPY CELIA CASTILLO MD Start: 12-30-2007 Colonoscopic polypectomy Colonoscopic polypectomy CELIA CASTILLO MD Start: 04-01-2007 Colonoscopy CELIA CASTILLO MD Comment on above: POLYP, TUBULAR ADENOMA Biopsy of lesion of skin CELIA CASTILLO MD Colonoscopy Vanita Blankenship Comment on above: 200112-18-07 sessile polyp of descendi ng colon Colonoscopy Vanita Gravius Comment on above: 200112-18-07 sessile polyp of descendi ng colon Colonoscopy Ninoska Law Comment on above: 200112-18-07 sessile polyp of descendi ng colon Colonoscopy George Portillo Comment on above: 2001 & 12-18-07 sessile polyp of descendi ng colon Colonoscopy Barb Otto Comment on above: 2001 & 12-18-07 sessile polyp of descendi ng colon Excision CELIA CASTILLO MD Excision CELIA CASTILLO MD Comment on above: cyst on middle left hand Past history of procedure Barb Otto Comment on above: 2001 & 12-18-07 sessile polyp of descendi ng colon Past history of procedure Rach Slarb HEALTH EDUCATION ASSISTANT Comment on above: 2001 & 12-18-07 sessile polyp of descendi ng colon Past history of procedure Lou Shah HEALTH EDUCATION ASSISTANT Comment on above: 2001 & 12-18-07 sessile polyp of descendi ng colon Past history of procedure Nubia Navas MEMBERSHIP ASSISTANT Comment on above: 2001 & 12-18-07 sessile polyp of descendi ng colon Past history of procedure Nubia Navas MEMBERSHIP ASSISTANT Comment on above: 2001 & 12-18-07 sessile polyp of descendi ng colon Past history of procedure Max Trinh HEALTH EDUCATION ASSISTANT Comment on above: 2001 & 12-18-07 sessile polyp of descendi ng colon Past history of procedure NADEGE Lara HEALTH EDUCATION ASSISTANT Comment on above: 2001 & 12-18-07 sessile polyp of descendi ng colon Plan of Treatment Date Care Activity Detail Author Start: 12-20-2031 Urine microalbumin profile DTaP,Tdap,Td Vaccine (2 - Td or Tdap) [facility] Start: 2026 RSV Vaccine (1 - 1-dose 75+ series) RSV Vaccine (1 - 1-dose 75+ series) [facility] Start: 02-01-2025 End: 02-01-2025 ambulatory 02/01/2025 9:10 AM EST Visit (SP) Office Hematology/Oncology [address] [place] [address] Jt Junior MD [address] [place] [address] 4MO OV/CT & LABS 01/25* Hematology/Oncology Comment on above: 4MO OV/CT & LABS 01/25* Start: 01-25-2025 End: 01-25-2025 Patient encounter procedure 01/25/2025 9:00 AM EDT Appointment Cat Scan [address] [place] [address] Dx: Lung nodules [R91.8] Cat Scan Comment on above: Dx: Lung nodules [R91.8] Start: 01-25-2025 End: 01-25-2025 ambulatory 01/25/2025 8:45 AM EDT Results Only Alyssa Dalywn [facility] Laboratory [address] [place] [address] HEPATIC PANEL [facility] Laboratory Comment on above: HEPATIC PANEL Start: 11-30-2024 Influenza vaccination Influenza Vaccine (Season Ended) [facility] Start: 09-28-2024 End: 09-28-2024 ambulatory 09/28/2024 10:40 AM EDT Visit (SP) Office Hematology/Oncology [address] [place] [address] Jt Junior MD [address] [place] [address] COMMUNICATION LECTURER/COLON CANCER/REFERRED BY CELIA CASTILLO/FIRST AVAILABLE* Hematology/Oncology Comment on above: COMMUNICATION LECTURER/COLON CANCER/REFERRED BY CELIA CASTILLO /FIRST AVAILABLE* Start: 08-13-2024 End: 08-13-2024 ambulatory 08/13/2024 9:30 AM EDT Visit (SP) Office Hematology/Oncology [address] [place], [place] [id number] Cathie Salamanca [address] [place] [id number] OV*LABS 08/05 Hematology/Oncology Comment on above: OV*LABS 08/05 Start: 08-11-2024 End: 11-10-2024 CBC W Auto Differential panel - Blood COMPLETE BLOOD COUNT AND DIFFERENTIAL Lab STAT Iron deficiency anemia secondary to inadequate dietary iron intake Expected: 08/11/2024 (Approximate), Expires: 11/10/2024 [facility] Work Phone: Comment on above: Expected: 08/11/2024 (Approximate), Expi res: 11/10/2024 Start: 08-11-2024 End: 11-10-2024 Ferritin [Mass/volume] in Serum or Plasma FERRITIN Lab Routine Iron deficiency anemia secondary to inadequate dietary iron intake Expected: 08/11/2024 (Approximate), Expires: 11/10/2024 [facility] Comment on above: Expected: 08/11/2024 (Approximate), Expi res: 11/10/2024 Start: 08-11-2024 End: 11-10-2024 Iron and Iron binding capacity panel - Serum or Plasma IRON AND TIBC Lab Routine Iron deficiency anemia secondary to inadequate dietary iron intake Expected: 08/11/2024 (Approximate), Expires: 11/10/2024 [facility] Comment on above: Expected: 08/11/2024 (Approximate), Expi res: 11/10/2024 Start: 08-05-2024 End: 08-05-2024 ambulatory 08/05/2024 10:00 AM EDT Results Only Alyssa Rosales [facility] Laboratory [address] [place] [address] CBC/FERRATIN/IRON STUDIES* [facility] Laboratory Comment on above: CBC/FERRATIN/IRON STUDIES* Start: 06-05-2024 End: 06-05-2024 ambulatory 06/05/2024 2:30 PM EST Infusion Center Hematology/Oncology [address] [place] [address] 2ND FLOOR Hematology/Oncology Comment on above: 2ND FLOOR Start: 06-03-2024 End: 06-03-2024 ambulatory 06/03/2024 9:30 AM EST Infusion Center Hematology/Oncology [address] [place] [address] 2ND FLOOR Hematology/Oncology Comment on above: 2ND FLOOR Start: 06-01-2024 End: 08-31-2024 CBC W Ordered Manual Differential panel - Blood PATHOLOGIST INTERPRETATION WITH CBC AND DIFF Lab Routine Iron deficiency anemia, unspecified iron deficiency anemia type Expected: 06/01/2024 (Approximate), Expires: 08/31/2024 [facility] Work Phone: Comment on above: Expected: 06/01/2024 (Approximate), Expi res: 08/31/2024 Start: 06-01-2024 End: 06-01-2024 ambulatory 06/01/2024 8:30 AM EST Infusion Center Hematology/Oncology [address] [place] [address] CBC 3rd IRON INFUSION Hematology/Oncology Comment on above: CBC 3rd IRON INFUSION Start: 05-29-2024 End: 08-28-2024 CBC W Auto Differential panel - Blood COMPLETE BLOOD COUNT AND DIFFERENTIAL Lab STAT Iron deficiency anemia secondary to inadequate dietary iron intake Expected: 05/29/2024 (Approximate), Expires: 08/28/2024 [facility] Work Phone: Comment on above: Expected: 05/29/2024 (Approximate), Expi res: 08/28/2024 Start: 05-28-2024 End: 05-28-2024 ambulatory 05/28/2024 3:00 PM [facility] Hematology/Oncology [address] [place] [address] 2ND FLOOR Hematology/Oncology Comment on above: 2ND FLOOR Start: 05-26-2024 End: 05-26-2024 ambulatory 05/26/2024 1:30 PM [facility] Hematology/Oncology [address] [place] [address] 2ND FLOOR Hematology/Oncology Comment on above: 2ND FLOOR Start: 04-01-2024 Advance Directive Discussion Advance Directive Discussion [facility] Start: 12-01-2023 Covid-19 Vaccine () Covid-19 Vaccine () [facility] Start: 12-01-2023 Influenza vaccination Influenza Vaccine (#1) [facility] Start: 02-13-2023 Patient discharge [facility] Start: 01-21-2023 Provider Instructions for Treatment Follow [...] 07-17-2022 Potassium serum plasma/whole blood POTASSIUM SERUM (51997) [facility] Work Phone: Start: 07-16-2022 Procedure Education Eprescribed prescriptions (G8553) [facility]; [facility] Work Phone: Start: 07-16-2022 Provider Instructions for Treatment [facility]; [facility] Work Phone: Start: 07-16-2022 Assay of thyroid stimulating hormone tsh TSH (02253) [facility] Work Phone: Start: 07-16-2022 Comprehensive metabolic panel METABOLIC PANEL, COMPREHENSIVE (24697) [facility] Work Phone: Start: 07-16-2022 Blood count complete auto&auto difrntl wbc CBC W/AUTO DIFF WBC (19103) [facility] Work Phone: Start: 07-16-2022 Lipid panel LIPID PANEL (46064) [facility]; [facility] Work [...] 06-07-2021 Hepatitis c antibody HEPATITIS C ANTIBODY (82202) [facility]; [facility] Work Phone: Start: 01-29-2021 Screening for malignant neoplasm of colon [facility] Start: 12-13-2020 Procedure Education Eprescribed prescriptions (G8553) [facility]; [facility] Work Phone: Start: 12-13-2020 Provider Instructions for Treatment Reviewed Lab [facility]; [facility] Work Phone: Start: 12-12-2020 Procedure Education Eprescribed prescriptions (G8553) [facility]; [facility] Work Phone: Start: 12-12-2020 Provider Instructions for Treatment Follow up tomorrow, virtual front desk associate to sched [facility]; [facility] Work Phone: Start: 12-12-2020 [place] influenza 2019 Novel Coronavirus (COVID-19), FARIBA (18936) [facility]; [facility] Work [...] to dr lopez Start: 02-22-2020 [place] influenza 2018 Novel Coronavirus (COVID-19), FARIBA (16876) [facility] Work Phone: Start: 02-18-2020 [place] influenza 2019 Novel Coronavirus (COVID-19), FARIBA (20209) [facility] Work Phone: Start: 02-18-2020 [...] Start: 12-16-2017 Provider Instructions for Treatment Reviewed Potato Spotter Letter [facility] Work Phone: Start: 12-13-2017 Provider Instructions for Treatment [facility] Work Phone: Start: 12-13-2017 Oncology colorectal screening charisse 10 dna markrs Cologuard - Strool Based DNA Test, CRC SCREEN (17966) [facility] Work Phone: Start: 11-18-2017 [...] Start: 03-01-2017 Urinalysis qual/semiquant except immunoassays URINALYSIS (88084) [facility] Work Phone: Start: 02-27-2017 [...] Annual Wellness Visit Medicare Annual Wellness Visit [facility] Start: 01-12-2016 Provider Instructions for Treatment [facility] Work Phone: Start: 01-12-2016 Blood occult fecal hgb deter ia qual feces 1-3 FECAL OCCULT- Tubes sent home (46237) [facility] Work Phone: Start: 05-16-2015 [...] xcpt urine blood/stool aerobic isol TURNER CULTURE-OTHER (68278) [facility] Work Phone: Start: 09-18-2007 Provider Instructions for Treatment [facility] Work Phone: Start: 08-21-2007 Provider Instructions for Treatment [facility] Work Phone: Start: 08-01-2006 Provider Instructions for Treatment GERD Education [facility] Work Phone: Start: 08-01-2006 Lipid panel LIPID PANEL (98001) [facility] Work Phone: Start: 08-01-2006 Urnls dip stick/tablet rgnt auto w/o microscopy URINALYSIS W/O MICRO (77272) [facility] Work Phone: Comment on above: NORMAL DONE AT [facility] Start: 08-01-2006 Assay of prostate specific antigen total PSA (PROSTATE SPECIFIC ANTIGEN) (91009) [facility] Work Phone: Comment on above: AFTER August Start: 08-01-2006 Protein mass conc PSA (PROSTATE SPECIFIC ANTIGEN) (00489) [facility] Work Phone: Comment on above: AFTER August Start: 2001 Pneumococcal Vaccine: 50+ (1 of 1 - PCV) Pneumococcal Vaccine: 50+ (1 of 1 - PCV) [facility] Start: 1996 Diabetes Screening Diabetes Screening [facility] Start: 1996 Screening for malignant neoplasm of colon [facility] Start: 1986 Lipid panel Lipid Screening [facility] Start: 1969 Anxiety Screening Anxiety Screening [facility] Start: 1969 Depression Screening Depression Screening [facility] Start: 1969 Hepatitis C screening Hepatitis C Screening [facility] End: 09-28-2025 Carcinoembryonic Ag [Mass/volume] in Serum or Plasma CARCINOEMBRYONIC ANTIGEN Lab Routine Lung nodules Malignant neoplasm of transverse colon (HCC) Every 4 months for 3 Occurrences starting 09/28/2024 until 09/28/2025 [facility] Comment on above: Every 4 months for 3 Occurrences startin g 09/28/2024 until 09/28/2025 End: 10-28-2025 CT Chest WO contrast CT CHEST WO IVCON Radiology Routine Lung nodules 1 Occurrences starting 09/28/2024 until 10/28/2025 [facility] Work Phone: Comment on above: 1 Occurrences starting 09/28/2024 until 10/28/2025 End: 09-28-2025 Hepatic function 2000 panel - Serum or Plasma HEPATIC FUNCTION PNL Lab Routine Lung nodules Malignant neoplasm of transverse colon (HCC) Every 4 months for 3 Occurrences starting 09/28/2024 until 09/28/2025 [facility] Comment on above: Every 4 months for 3 Occurrences startin g 09/28/2024 until 09/28/2025 Patient Education ED Crush Injur y, Hand ED Laceration, Hand: All Closures [facility] Work Phone: Patient referral [facility] Work Phone: [facility] Work Phone: [...] Immunizations Immunization Date Immunization Notes Care Provider [facility] 12-19-2021 tetanus toxoid, reduced diphtheria toxoid, and acellular pertussis vaccine, adsorbed [facility] 03-02-2021 SARS-CoV-2 (COVID-19 ) mRNA-1273 vaccine CELIA CASTILLO MD [facility] Comment on above: Result Comment: 2024: [id number] 03-01-2021 COVID-Moderna (50 MCG/0.25 ML) Rosita Capone DO Work Phone: [facility]; [facility] Work Phone: 09-21-2020 zoster vaccine recombinant CELIA CASTILLO MD [facility] 09-21-2020 zoster vaccine, live Corinna Capone DO Work Phone: [facility]; [facility] Work Phone: 04-27-2020 SARS-CoV-2 (COVID-19 ) mRNA-1273 vaccine CELIA CASTILLO MD [facility] 04-01-2020 COVID-Moderna (50 MCG/0.25 ML) Rosita Hensleyon DO Work Phone: [facility]; [facility] Work Phone: 03-30-2020 SARS-CoV-2 (COVID-19 ) [id number] vaccine CELIA CASTILLO MD [facility] 03-10-2020 zoster vaccine recombinant CELIA CASTILLO MD [facility] 03-10-2020 zoster vaccine, live Corinna Capone DO Work Phone: [facility]; [facility] Work Phone: 03-01-2020 COVID-Moderna (50 MCG/0.25 ML) Rosita Capone DO Work Phone: [facility] Work Phone: 01-05-2015 influenza, injectabl e, quadrivalent, preservative free Dr. Rosita Capone Work Phone: [facility] 01-05-2015 influenza, seasonal, injectable [facility] 04-01-2014 tetanus and diphther ia toxoids, adsorbed, preservative free, for adult use (5 Lf of tetanus toxoid and 2 Lf of diphtheria toxoid) Rosita Capone DO Work Phone: [facility]; [facility] Work Phone: 04-01-2014 tetanus toxoid, reduced diphtheria toxoid, and acellular pertussis vaccine, adsorbed Rosita Capone [facility] Work Phone: 01-29-2009 influenza virus vaccine, unspecified formulation Cathie Salamanca Work Phone: [facility] 01-10-2009 influenza, seasonal, injectable Rosita Capone [facility] Work Phone: Comment on above: Lot #[id number] Site-left deltoidDose0.5mlgiven by Tera Hutchinson LPN 06-30-2003 tetanus and diphther ia toxoids, adsorbed, preservative free, for adult use (5 Lf of tetanus toxoid and 2 Lf of diphtheria toxoid) Rosita Capone DO Work Phone: [facility]; [facility] Work Phone: Payers Date Payer Category Payer Unknown 2024 Self-pay [id number] 2021 Medicare [id number] 2021 Unknown [id number] 01 2016 Private Health Insurance [id number] 2016 Unknown [id number] 2016 Medicare [id number] 2016 Unknown [id number] 2016 Medicare [id number] 2014 Unknown [id number] 2008 Unknown [id number] 2005 Unknown [id number] 2004 Unknown [id number] 1950 Unknown [id number] 1950 Unknown [id number] 1950 Unknown [id number] 2.16.840.1.277810.3.579.2.627 1950 Unknown [id number] 2.16.840.1.894758.3.579.2.627 1950 Unknown [id number] 2.16.840.1.980276.3.579.2.627 1950 Unknown [id number] 2.16.840.1.015843.3.579.2.627 1950 Unknown [id number] 2.16.840.1.820668.3.579.2.627 1950 Unknown [id number] 2.16.840.1.735632.3.579.2.627 Private Health Insurance [id number] Unknown [facility] [id number] Unknown [id number] [id number] Unknown [id number] 2.16.840.1.557087.3.579.2.462 Unknown [id number] 2.16.840.1.205672.3.579.2.462 Unknown [id number] 2.16.840.1.624349.3.579.2.462 Unknown [id number] 2.16.840.1.300849.3.579.2.462 Unknown [id number] 2.16.840.1.888389.3.579.2.462 Unknown [id number] 2.16.840.1.941398.3.579.2.462 Unknown [id number] 2.16.840.1.988529.3.579.2.462 Unknown [id number] 2.16.840.1.611631.3.579.2.462 Unknown [id number] 2.16.840.1.785311.3.579.2.462 Unknown [id number] 2.16.840.1.013677.3.579.2.462 Social History Date Type Detail Facility Start: 05-22-2024 End: 09-28-2024 Alcohol Use [facility] Work Phone: Comment on above: Occasional alcohol u se 1- 1/2 QD 3-5 days a week, 25 to 60 mins. Remarried, heterosex ual Distribution Start: 12-19-2021 End: 01-31-2023 Tobacco smoking status COIS Unknown if ever smoked [facility] Start: 1950 Sex Assigned At Male W [facility] Start: 11-13-2014 None [facility] Start: 11-13-2014 Non-smoker [facility] Start: 04-30-2024 End: 05-22-2024 Tobacco smoking status NHIS Never smoked tobacco [facility] Start: 05-22-2024 Tobacco use and exposure Smokeless tobacco non-user [facility] Start: 05-22-2024 End: 09-28-2024 Tobacco use panel [facility] Start: 1950 Sex assigned at Not on file [facility] Start: 04-19-2014 End: 06-22-2024 Sex Male (finding) [facility] Sexual Orientation [facility] Start: 09-28-2024 Alcoholic beverage intake Ex-drinker (finding) [facility] Medical Equipment Procedure Code Equipment Code Equipment Origin al Text Equipment Identifier Dates Repair, hernia, umbilical, using mesh ([id number]) Extra-gynaecologic al surgical mesh, composite-polymer ([id number] FDA Start: 02-13-2023 Goals Date Patient Goal Desired Activity /State Functional Status Date Assessment Result Facility 08-05-2024 Functional Status Sensory Defici ts [facility] 12-13-2017 LP-IR Score LP-IR Score 49 [facility] Work Phone: Comment on above: INSULIN RESISTANCE Willie MONTES <--Insulin Sensitive Insulin Resistant--> Percentile in [...] PATIENT WAS FASTINGP ERFORMED BY: BN [facility] [id number] [facility] [id number] BY: CB [facility] [id number] [facility] [id number] Mental Status Date Assessment Result Facility 02-13-2023 Cognitive function Voice/Name [facility] Work Phone: Clinical Notes 02-13-2023 to 02-11-2025 Jt Junior MD - 09/28/2024 10:30 AM EDTTelephone Encounter - Charlie Douglas - 09/16/2024 12:41 PM EDTTelephone Encounter - Charlie Douglas - 09/16/2024 12:41 PM EDT Note Date & Type Note Facility 02-11-2025 Note [facility] Medical Records Department [address] [place] [address] History Physical Exam 02/11/25 1620 MR#: [id number] Acct: [id number] Name: RADHA MENG Rep #: [id number] : 1950 74 From: Harrison Lopez MD PCP: Dr. Rosita Capone, DO Status:DEP [facility] Location: [facility] HPI - General General Date of Admission: 02/10/25 Chief Complaint: kidney stone HPI Narrative RADHA MENG, is a 74 M who presents to laser a kidney stone. [facility] Medical History (Updated 02/08/25 @ 00:01 by Background Jojo) Cancer Prostate disease Anemia Vertigo Hypertension History of stress test Cardiology follow-up encounter History of irregular heartbeat Wears glasses History of Clostridium difficile infection Arthritis Non-smoker History of echocardiogram BPH (benign prostatic hyperplasia) C. difficile colitis Syncope Home Medications ???Medication ???Instructions ???Recorded ???Last Taken ???Type antiarthritic combination no.2 900 900 mg PO DAILY 11/12/14 3 History mg tablet (glucosamine-chondroitin) multivitamin with folic acid 400 1 tab PO DAILY 01/24/15 02/12/23 H istory mcg tablet (Thera) finasteride 5 mg tablet (Proscar) 5 mg PO DAILY 12/15/17 02/13/23 H istory tamsulosin 0.4 mg capsule (Flomax) 0.4 mg PO QHS 12/15/17 02/12/23 History ascorbic acid (vitamin C) 1,000 mg 1 g PO DAILY 01/31/23 02/12/23 H istory tablet (C-1000) lactobacillus combination no.4 3 3,000 mmu cells PO DAILY 02/05/25 Unknown History billion cell capsule (Probiotic) ciprofloxacin HCl 500 mg tablet 500 mg PO BID #10 tabs 02/10/25 Un known Rx (Cipro) Allergy/AdvReac Type Severity Reaction Status Date / Time adhesive tape Allergy Mild Rash Verified 01/31/25 01:12 EST amoxicillin Allergy Rash Verified 01/31/25 01:12 EST Family History Mother Arthritis Mother Heart disease Father Heart disease Mother Seizures Mother CVA (cerebral vascular accident) Surgical History (Updated 02/05/25 @ 11:37 by Wendy Landrum) Hx of colonoscopy History of colectomy History of ureteroscopy History of umbilical hernia repair History of surgery History of wisdom tooth extraction Social History household members: spouse current occupational status: employed Smoking Status: Never smoker Vital Signs Vital Signs Vital Signs: Weight Weight: 76 kg Body Mass Index (BMI) 24.0 02/11/25 1620 Cosigner Signature (if applicable): CC: Dr. Harrison Lopez MD; Dr. Rosita Capone DO Signed [facility] 02-01-2025 Note HNO ID: [id number] Author: JT JUNIOR MD Service: ? Author Type: Physician Type: Progress Notes Filed: 02/01/2025 10:21 Note Text: (Elements copied from my note dated September 28, 2024, have been reviewed and updated where appropriate, and all reflect current assessment and medical decision making from today's encounter, February 01, 2025) HISTORY OF PRESENT ILLNESS: Radha Meng is [...] done, results being sent, not here yet) 02-01-25 follow up, CT chest negative for nodule. CLINICAL IMPRESSION: Transverse colon cancer stage II without high risk features. No role for adjuvant chemotherapy. 2 mm lung nodule, not evident on follow up. RECOMMENDATION/PLAN: 1. Plan surveillance with serial CEA and hepatic panel, yearly CT CAP 2. I will see back after labs and chest CT in July 2025. Written and verbal health teaching given to [...] Tape-Silic* Rash Amoxicillin Rash CURRENT OUTPATIENT MEDICATIONS: ciprofloxacin HCl (CIPRO) 500 mg tablet (Patient taking differently: Take 500 mg by mouth two times a day.) phenazopyridine HCl (PYRIDIUM PO) Take 1 tablet by mouth three times a day as needed. tamsulosin (FLOMAX) 0.4 mg Take 0.4 mg by mouth once daily. finasteride (PROSCAR) 5 mg tablet Take 5 mg by mouth once daily. glucosamine HCl/chondroitin hall (GLUCOSAMINE-CHONDROITIN ORAL) Take 1 tablet by mouth once daily. multivitamin tablet Take 1 tablet by mouth once daily. fluticasone (FLONASE ALLERGY RELIEF) 50 mcg/actuation nasal spray Use 1 Lincoln in each nostril once daily as needed. OTC PRODUCT Standard Process Prosymbiotic: Take one tablet by mouth once daily. ascorbic acid, vitamin C, (VITAMIN C) 500 mg tablet Take 500 mg by mouth once daily. lisinopril (ZESTRIL) 10 mg tablet Take 10 mg by mouth once daily. (Patient not taking: Reported on 02/01/2025) aspirin, enteric coated (ASPIRIN, ENTERIC COATED) 81 mg EC tablet Take 81 mg by mouth every other day. (Patient not taking: Reported on 02/01/2025) ferrous sulfate (IRON, FERROUS SULFATE,) 325 mg (65 mg iron) tablet Take 325 mg by mouth once daily. (Patient not taking: Reported on 02/01/2025) REVIEW OF SYSTEMS: GENERAL: No fever, night sweats, weight loss or malaise. All other reviewed and negative other than HPI. PHYSICAL EXAMINATION: VITAL SIGNS: BP 151/98 Pulse 75 Temp (Src) 98.4 (Temporal) Wt 169 lb (76.7kg) SpO2 99% GENERAL APPEARANCE: Well appearing, in no acute distress, alert and oriented x3, well-hydrated, well nourished. I spent a total of 30 minutes on the date of the service which included preparing to see the patient, druq-mb-drhe patient care, completing clinical documentation, obtaining and/or reviewing separately obtained history, counseling and educating the patient/family/caregiver, ordering medications, tests, or procedures, communicating with other HCPs (not separately reported), independently interpreting results (not separately reported), and communicating results to the patient/family/caregiver. Review of NCCN guidelines, outside records Electronically Signed: Jt Junior MD February 01, 2025 [facility] 01-20-2025 Note HNO ID: [id number] Author: ALBA SPIVEY RT(R) Service: Radiology Author Type: Technologist Type: Progress Notes Filed: 01/20/2025 15:21 Note Text: Radiology Service Progress Note PATIENT NAME: Radha Meng DATE OF SERVICE: January 20, 2025 TIME: 3:21 PM PATIENT IDENTITY VERIFICATION COMPLETED USING TWO (2) IDENTIFIERS: Name and Date of confirmed by patient verbally. FALL SCREENING: Has the patient had 2 falls in the last year or 1 fall with injury or currently using an Ambulatory Assistive Device (Walker, Cane, Wheelchair, Crutches, etc.)? No PATIENT GENDER DATA: Assigned male at PATIENT RELEVANT IMPLANT DATA REVIEWED: Not Applicable PATIENT PRESENTS WITH AN IMPLANTABLE OR ATTACHED DISHCLOTH FOLDER: No RADIOLOGY DEPARTMENT: CT; Exam(s) Completed: Chest. Anesthesia: No PERIPHERAL IV DATA: Not applicable SIGNED BY: RT Bandar(R) January 20, 2025 3:21 PM [facility] 12-07-2024 Radiology Diagnostic study note [facility] Imaging Services [address] [place] [address] [id number] Kidney and Bladder MR#: [id number] Acct: [id number] Name: RADHA MENG Rep #: [id number] : 1950 M 74 From: Cr Castillo MD PCP: Dr. Rosita Capone DO Status: RE G CLI Study:Kidney and Bladder Date of Exam: 0 12/07/24 Exam# [id number] Ordering Dr: Zaid Capone DO PROCEDURE: KIDNEY AND BLADDER 12/07/2024 REASON FOR EXAM: COMPLETE ULTRASOUND OF KIDNEY; RIGHT EVAL COMPLEX R RENAL CYST SE TECHNIQUE: Procedure Code: USKI Modality: US Procedure: KIDNEY AND BLADDER COMPARISON: None FINDINGS: Kidneys: Normal renal sizes, parenchymal thicknesses, and echotextures. [place]: No evidence of hydronephrosis. Cysts or Masses: [...] calculus in the left kidney. Reading Location: [id number] CC: Dr. Rosita Capone DO ~ Licensed Occupational Therapist: Signed [facility] 09-28-2024 Note HNO ID: [id number] Author: JT JUNIOR MD Service: ? Author [...] and hepatic panel, yearly CT CAP 2. [facility] term CT chest to follow up on [...] RELIEF) 50 mcg/actuation nasal spray Use 1 Lincoln in each nostril once daily as needed. [...] 80 Temp (Src) 97.4 (Temporal) Ht 5' 9.5 (1.77m) Wt 163 lb 8 oz (74.2kg) SpO2 98% BMI 23.81 kg/(m2). GENERAL APPEARANCE: Well appearing, in no acute distress, alert and oriented x3, well-hydrated, well nourished. I spent a total of 60 minutes on the date of the service which included preparing to see the patient, lbnn-ow-qynb patient care, completing clinical documentation, obtaining and/or reviewing separately obtained history, counseling and educating the patient/family/caregiver, ordering medications, tests, or procedures, communicating with other HCPs (not separately reported), independently interpreting results (not separately reported), and communicating results to the patient/family/caregiver. Review of NCCN guidelines, outside records Electronically Signed: Jt Junior MD September 28, 2024 10:32 AM [facility] 09-28-2024 History of Present illness Narrative [...] and hepatic panel, yearly CT CAP 2. [facility] term CT chest to follow up on [...] RELIEF) 50 mcg/actuation nasal spray Use 1 Lincoln in each nostril once daily as needed. [...] 80 Temp (Src) 97.4 (Temporal) Ht 5' 9.5 (1.77m) Wt 163 lb 8 oz (74.2kg) SpO2 98% BMI 23.81 kg/(m^2). GENERAL APPEARANCE: Well appearing, in no acute distress, alert and oriented x3, well-hydrated, well nourished. I spent a total of 60 minutes on the date of the service which included preparing to see the patient, aehy-ms-khdc patient care, completing clinical documentation, obtaining and/or reviewing separately obtained history, counseling and educating the patient/family/caregiver, ordering medications, tests, or procedures, communicating with other HCPs (not separately reported), independently interpreting results (not separately reported), and communicating results to the patient/family/caregiver. Review of NCCN guidelines, outside records Electronically Signed: Jt Junior MD September 28, 2024 10:32 AM documented in this encounter [facility] 09-16-2024 Telephone encounter Note Spoke w pt and this scheduled for 09/[address] Junior, first available. Charlie Douglas [facility] 09-16-2024 Miscellaneous Notes Spoke w pt and this scheduled for 09/[address] Junior, first available. Charlie Douglas Records received. Red chart given to PSS to schedule. This patient has been seen once by the COMMUNICATION LECTURER for [facility]. This is a new diagnosis for colon cancer and needs to see a physician. Aundrea Mendosa LPN Referral received was missing information. Additional records requested. Aundrea Mendosa LPN Spouse called stating patient had cancerous tumor removed from colon and Dr. Castillo was to send reports/results. Please advise on follow up appointment. documented in this encounter [facility] 09-16-2024 Telephone encounter Note Records received. Red chart given to PSS to schedule. This patient has been seen once by the COMMUNICATION LECTURER for [facility]. This is a new diagnosis for colon cancer and needs to see a physician. Aundrea Mendosa LPN [facility] 09-15-2024 Telephone encounter Note Referral received was missing information. Additional records requested. Aundrea Mendosa LPN [facility] 09-15-2024 Telephone encounter Note Spouse called stating patient had cancerous tumor removed from colon and Dr. Castillo was to send reports/results. Please advise on follow up appointment. [facility] Work Phone: 09-01-2024 Hospital Discharge instructions Patient [...] and water are not available, use hand offline cutter. 2.Use an alcohol wipe to clean the [...] 11/29/2011 Document Revised: 07/09/2019 Document Reviewed: 12/17/2018 [employer] Patient Education 2020 [employer]. 09/01/2024 11:44:35 Laparoscopic Colectomy, Care After Laparoscopic [...] Follow these instructions at home: Medicines Take miep-drd-ofmqoqs and prescription medicines only as told by [...] and water are not available, use hand offline cutter. ?Change your dressing as told by your [...] your urine clear or pale yellow. ?Take ipqv-wgh-cznzukp or prescription medicines. ?Eat foods that are [...] 10/05/2005 Document Revised: 12/05/2018 Document Reviewed: 12/17/2016 [employer] Patient Education 2020 [employer]. Follow Up Care 07/21/2024 15:44:01 With:ROSITA CAPONE DO Address: [address] [place] [address] [address] [place] [address]- When:5 to 7 days Comments:Please call the office to schedule a hospital follow up appointment. With:CELIA CASTILLO MD, Surgery Address: [address] [place] [address] [address] [facility] [place] [address]- [phone] When:09/15/2024 13:45:00 Comments:FOLLOW UP [facility] 09-01-2024 Discharge summary Date of Service 09/01/2024 [...] in 2 weeks. I have reviewed the [place] Automated Rx Reporting System (OARRS) report for [...] Refills: 0. Follow Up Follow Up with LIBORIO, ROSITA DO When:Within 5 to 7 days Where:[address] [facility] [address] [place], [place] [address]- Additional Information: Please call the office to schedule a hospital follow up appointment. Follow Up with CELIA CASTILLO MD, Surgery When:09/15/2024 01:45 PM EDT Where:[address] [facility] [address] [place] [address]- [phone] Additional Information: FOLLOW UP Follow Up Appointments No qualifying data available. Follow Up Labs/Studies Discharge Labs No Follow-up Labs Discharge Studies No Follow-up Studies Discharge Diet No qualifying data available. Discharge Activity No qualifying data available. Condition on Discharge Stable Discharge Disposition Home Information Provided To Patient and Time Spent 20 minutes Digitally Signed by MONICO MORENO on 09/01/2024 09:42 AM [facility] 09-01-2024 Note Discharge Instructions Thank you for allowing [place] to assist you with your healthcare needs. [...] 09/15/2024 01:45 PM EDT CELIA CASTILLO MD [facility] Confirmed Follow Up Appointments Follow Up with ROSITA CAPONE DO When:Within 5 to 7 days Where:[address] [facility] [address] [place] [address]- Additional Information: Please call the office to schedule a hospital follow up appointment. Follow Up with CELIA CASTILLO MD, Surgery When:09/15/2024 01:45 PM EDT Where:[address] [place] [address]- [phone] Additional Information: FOLLOW UP The Following Activity [...] postoperative pain Duration: 3 Days Pickup at [id number] Unchanged ascorbic acid (Vitamin C 500 mg [...] by mouth Once a day Pickup at [id number] Unchanged magnesium sulfate/ potassium sulfate/ sodium sulfate [...] day (in the evening) Pharmacy Information [id number]: [address] [place], [place] [id number] [phone] What How Much When Comments Stop Taking [...] were not tolerated. Extended-release oxycodone is for ocebdn-cjz-fihaz treatment of severe and chronic pain that [...] by your doctor. Stop taking all other kglfny-lqj-mlcdw opioid pain medicines when you start taking [...] may report side effects to FDA at 6-754-JCP-5381. What other drugs will affect oxycodone? You [...] may affect oxycodone. This includes prescription and iwgh-xxk-dersvlc medicines, vitamins, and herbal products. Not all [...] to ensure that the information provided by [employer]. ('[employer]') is accurate, up-to-date, and complete, but no guarantee is made to that effect. Drug information contained herein may be time sensitive. Heartscape information has been compiled for use by healthcare practitioners and consumers in the [place] and therefore Heartscape does not warrant that uses outside of the [place] are appropriate, unless specifically indicated otherwise. Heartscape's drug information does not endorse drugs, diagnose patients or recommend therapy. [employer] drug information is an informational resource designed [...] effective or appropriate for any given patient. [facility] does not assume any responsibility for any aspect of healthcare administered with the aid of information [facility] provides. The information contained herein is not intended to cover all possible uses, directions, precautions, warnings, drug interactions, allergic reactions, or adverse effects. If you have questions about the drugs you are taking, check with your doctor, nurse or pharmacist. Copyright [facility] Your Office Agent. Version: 17.. Revision Date: 04/23/2023. Education Materials [...] Follow these instructions at home: Medicines Take bmgq-vsc-lrqyjjl and prescription medicines only as told by [...] and water are not available, use hand offline cutter. ? Change your dressing as told by [...] urine clear or pale yellow. ? Take bblm-dou-velcbfu or prescription medicines. ? Eat foods that [...] 10/05/2005 Document Revised: 12/05/2018 Document Reviewed: 12/17/2016 [employer] Patient Education 2020 [employer]. Additional Information VACCINATE! IT SAVES LIVES! Members of the community who have not yet received the COVID-19 vaccine and would like to receive it can visit one of [facility] vaccine clinics. There are many vaccine clinic locations within the [facility]. For locations and available times, please visit https://gettheshot.coronavirus.[place] .gov/. It is important to note that some COVID mobile vaccine clinics are held outdoors and may be canceled in rainy or stormy conditions. To learn more about pediatric vaccinations (ages 5-11), we invite you to visit the [employer] webpage. https://www.[employer].org/page s/8308-Pvccs-Xwrornilanq-Frequently -Asked-Questions.html To learn more about the COVID-19 vaccine, we invite you to visit the CDC website for a list of frequently asked questions.https://www.cdc.gov/coron avirus/2019-ncov/vaccines/faq.html [employer] Patient Portal Access Instructions: Stay connected with your healthcare team and access your personal medical information anytime with the [employer] Patient Portal. Please follow the directions below to create your [employer] account: 1.Access the email account you provided upon registration to the hospital/physician office.2.Look for an invitation email from [facility].3.Open the email and access the invitation link: Accept Invitation to [facility] [facility].4.Fill in the required granados to create your account. To access your account, visit [email or web address]. Click the blue button labeled Access Patient Portal and then log in with the username [...] you will allow to register on the [facility] for access to your information. You can also access the [facility] on the [place] [facility] rashaun. Simply click on Patient Portal and then log into your account. If you would like to receive a full copy of your medical records, please contact the [facility] Medical Records Department by calling [phone], Saturday through Saturday between 8 a.m. and [...] Call your local pharmacy or go to http://WorldMate/7K0Lv3x to find one close to you.3.Make use of household items: Use cat litter or old coffee grounds to dispose medications if other options are not available. Mix your drugs with these household products, seal them in an airtight container and throw it into the garbage. Call [facility]: [phone] to be sure your drugs can be [...] been reviewed and explained to me and I,RADHA MENG understand my current condition and have read and understand these discharge instructions. I have received a written copy of the plan/instructions. If I have questions, I am aware that I should contact my doctor. Patient/Family Member Caretaker Signature: ____ Date/Time: Relationship to Patient: __ Witness Name/Signature: Date/Time: [facility] 09-01-2024 Discharge summary Date of Service 09/01/2024 [...] in 2 weeks. I have reviewed the [place] Automated Rx Reporting System (OARRS) report for [...] 5 to 7 days Where:[address] [facility] [address] [place] [address]- Additional Information: Please call the office to schedule a hospital follow up appointment. Follow Up with CELIA CASTILLO MD, Surgery When:09/15/2024 01:45 PM EDT Where:[address] [facility] [place] [address]- [phone] Additional Information: FOLLOW UP Follow Up Appointments No qualifying data available. Follow Up Labs/Studies Discharge Labs No Follow-up Labs Discharge Studies No Follow-up Studies Discharge Diet No qualifying data available. Discharge Activity No qualifying data available. Condition on Discharge Stable Discharge Disposition Home Information Provided To Patient and Time Spent 20 minutes Digitally Signed by MONICO MORENO on 09/01/2024 09:42 AM [facility] 08-31-2024 Nurse Progress note student's documentation was reviewed, and all medications were verified prior to administration. Digitally Signed by MARIAH Cortes on 08/31/2024 05:27 PM [facility] 08-31-2024 Surgery Hospital Progress note Date of [...] by GALI VALDES on 08/31/2024 09:53 AM [facility] 08-31-2024 Surgery Hospital Progress note Date of [...] by GALI VALDES on 08/31/2024 09:53 AM [facility] 08-30-2024 Surgery Hospital Progress note Date of [...] by GIOVANY HERZOG on 08/30/2024 09:47 AM [facility] 08-30-2024 Surgery Hospital Progress note Date of [...] by GIOVANY HERZOG on 08/30/2024 09:47 AM [facility] 08-29-2024 Surgery Hospital Progress note Date of [...] by GIOVANY HERZOG on 08/29/2024 12:34 PM [facility] 08-29-2024 Surgery Hospital Progress note Date of [...] by GIOVANY HERZOG on 08/29/2024 12:34 PM [facility] 08-28-2024 Note Event Display: SP Cl in Info Procedure: LAPAROSCOPIC RIGHT COLECTOMY Preoperative diagnosis: COLON CANCER Postoperative diagnosis: COLON CANCER BLU TRAVIS MD:VERIFY; Authored Date: [id number] [facility] 08-27-2024 Anesthesiology Consult note Patient: RADHA MENG [...] list: Medical BPH (benign prostatic hyperplasia) / [facility] [id number] / Confirmed Colonoscopic polypectomy / [facility] [id number] / Confirmed GERD (gastroesophageal reflux disease) / [facility] [id number] / Confirmed Mitral valve prolapse / [facility] CT [id number] / Confirmed Histories Social History: Social [...] Oral36.8 DegC (AUGUST 27 08:21) Heart Rate Rvnmiflfz27 bpm (AUGUST 26 12:29) SBPH 158 mmHg [...] HOLLY MARTIN MD on 08/27/2024 10:44 AM [facility] 08-27-2024 Progress note Date of Service 08/27/2024 [...] by KATELIN PARRY on 08/27/2024 08:41 AM [facility] 08-27-2024 Progress note Date of Service 08/27/2024 [...] to follow Digitally Signed by KATELIN PARRY APRN-SCHOOL PSYCHOLOGIST on 08/27/2024 08:41 AM [facility] 08-26-2024 Pastoral care Progress note Pastoral Care Note Entered On: 08/26/2024 17:40 EDT Performed On: 08/26/2024 16:17 EDT by Raleigh Toledo [facility] Type of Pastoral Visit : Initial visit [...] pray with them. They talked about their bahai across from their home they attend and he is advertising manager. Talked about the waiting game and we also explored how our every heart beat is in God's hands. They so appreciated the support and my card to come back as needed. Number Present During Pastoral Visit : 1 Pastoral Care Visit Length : 20 minute(s) Raleigh Toledo - 08/26/2024 17:37 EDT Digitally Signed by Raleigh Toledo on 08/26/2024 05:37 PM [facility] 08-26-2024 Evaluation + Plan note Extrac ugo [...] post operative/post traumatic pain Forced [employer] Warming [place] Application (PACU), 08/26/24 5:00:00 EDT, Apply in [...] Surg CAN Appointment Type:GS OV Post Op [facility] 05-28-2025 Note* Exam Date Time Procedure Performing Provider Status 08/26/24 1:45 PM US Anesthesia Block Auth (Verified) [id number] ORIGINAL Images acquired, not reported on this accession number. [id number] Anesthesiology Consult note Patient: RADHA MENG Age: [...] HOLLY MARTIN MD on 08/26/2024 12:27 PM [id number] Anesthesiology Consult note Patient: RADHA MENG Age: 74 years Sex: Male : 1950 Associated Diagnoses: None Author: HOLLY MARTIN MD Visit Information Location: [facility]. Reason: Postoperative Pain Management, Surgeon Request. Timing: Preoperative. Start Time: (In Room) Start (728). Stop Time: (Out of Room) Stop (734). Time Out Performed: Refer to [facility] Time Out Form, Patient was confirmed by [...] Needle Type: Echogenic. Size: 21 G. Length: 4. Ultrasound Exam Dynamic Guidance Use Throughout. OTHER [...] HOLLY MARTIN MD on 08/26/2024 08:04 AM [id number] History and physical note Date of Service [...] post operative/post traumatic pain [employer] [place] Application (PACU), 08/26/24 5:00:00 EDT, Apply in [...] CELIA CASTILLO MD on 08/26/2024 06:28 AM [facility] [id number] Telephone encounter Note* Telephone Encounter - Aundrea Mendosa LPN - 08/07/2024 3:51 PM EDT Patient saw colorectal surgeon at [place] instead of doc listed below. Aundrea Mendosa LPN [facility]05-09-2025 Miscellaneous Notes* Telephone Encounter - Aundrea Mendosa LPN - 08/07/2024 3:51 PM EDT Patient saw colorectal surgeon at [place] instead of doc listed below. Aundrea Mendosa LPN * Telephone Encounter - Anaya Keene - 08/07/2024 3:24 PM EDT OV canceled * Telephone Encounter - Cathie Salamanca - 08/07/2024 2:44 PM EDT Called pts spouse to review labs. Overall Hgb has improved. Iron is sufficient. She reports that He feels the best that he has sinceSeptember, he is currently out mowing the lawn Path from colonoscopy with mod differentiated adeno, MMR pending. They are seeing a colorectal surgeon at [place] with plans for surgery on 08/26. Per [...] with any questions or concerns. Cathie Salamanca APRN.SCHOOL PSYCHOLOGIST * Telephone Encounter - Aundrea Mendosa LPN - 08/03/2024 2:27 PM EDT I called and spoke with Dr. Proctor's office, patient had colonoscopy on 07/09/2024. They will send colonoscopy and path report. They referred him to Dr. Moi Corea. I will request the last OV noteas well. Aundrea Mendosa LPN OV note requested from Dr. Moi Corea. Aundrea Mendosa LPN * Telephone Encounter - Anaya Keene [...] after surgery. Please advise. [facility] Telephone encounter Note * Telephone Encounter - Anaya Keene - 08/07/2024 3:24 PM EDT OV canceled [facility] Work Phone: 1(749) 283-365605-09-2025 Telephone encounter Note* Telephone Encounter - Cathie Salamanca - 08/07/2024 2:44 PM EDT Called pts spouse to review labs. Overall Hgb has improved. Iron is sufficient. She reports that He feels the best that he has sinceSeptember, he is currently out mowing the lawn Path from colonoscopy with mod differentiated adeno, MMR pending. They are seeing a colorectal surgeon at [place] with plans for surgery on 08/26. Per [...] with any questions or concerns. Cathie Salamanca APRN.SCHOOL PSYCHOLOGIST [facility]05-05-2025 Telephone encounter Note* Telephone Encounter - Aundrea Mendosa LPN - 08/03/2024 2:27 PM EDT I called and spoke with Dr. Proctor's office, patient had colonoscopy on 07/09/2024. They will send colonoscopy and path report. They referred him to Dr. Moi Corea. I will request the last OV noteas well. Aundrea Mendosa LPN OV note requested from Dr. Moi Corea. Aundrea Mendosa LPN [facility]05-05-2025 Telephone encounter Note* Telephone Encounter - Anaya [...] or wait until after surgery. Please advise. [facility]04-30-2025 Note* Exam Date Time Procedure Performing Provider Status 07/29/24 9:[address] Abdomen/Pelvis w/Contrast ANDI FRANKLIN MD; Auth (Verified) [id number] ORIGINAL EXAMINATION: CT OF THE ABDOMEN AND [...] Date: 07/29/2024 2:51:26 PM Ordering Provider: CELIA JONATHAN [facility]04-22-2025 Evaluation + Plan note Future Appointments Future Scheduled Tests Radiology* CT Thorax w/ Contrast 07/21/24 * CT Abdomen and Pelvis w/ contrast 07/21/24 [facility] 04-15-2025 Telephone encounter Note* Telephone Encounter - Charlie Douglas - 07/14/2024 10:48 AM EDT Spoke w pt and he is scheduled for lab and follow up. Charlie Douglas [facility]04-15-2025 Miscellaneous Notes* Telephone Encounter - hCarlie Douglas - 07/14/2024 10:48 AM EDT Spoke [...] in AVS. Please advise. documented in this encounterMount [facility]04-15-2025 Telephone encounter Note * Telephone Encounter - Lizabeth Marie LPN - 07/14/2024 10:[address] Proctor's note. Please assist in scheduling below per Cathie Marie LPN [facility]04-15-2025 Telephone encounter Note* Telephone Encounter - Cathie Salamanca - 07/14/2024 10:11 AM EDT Yes please! CBC, iron studies, ferritin (ordered) 8 - 12 weeks out from last IV iron dose so aroundfirst week of July with OV about a week after. Orders signed. Could someone please obtain records from Dr Proctor's office prior to appt with me please? Thank you! Cathie [facility]04-15-2025 Telephone encounter Note* Telephone Encounter - Anaya Keene - 07/14/2024 9:46 AM EDT Spouse called asking if there was to be any follow ups from Iron infusion for patient. Unable to find anything in AVS. Please advise. [facility] Work Phone: 1(508) 451-927903-04-2025 Telephone encounter Note* Telephone Encounter - Charlotte Zuniga LISW - 06/02/2024 9:48 AM EST Pt noted on [facility] 1st time treatment report. Pt has a non-oncology regimen. No social work followup indicated. ELICEO Sharif [facility]03-04-2025 Miscellaneous Notes* Telephone Encounter - Charlotte Zuniga LISW - 06/02/2024 9:48 AM EST Pt noted on [facility] 1st time treatment report. Pt has a non-oncology regimen. No social work followup indicated. ELICEO Sharif documented in this encounterMount [facility]el [facility] System02-21-2025 History of Present illness Narrative* Cathie Salamanca - 05/22/2024 10:30 AM EST New Patient Note Radha Meng 1950 Encounter date: 05/22/2024 HPI: Radha Meng is a 74 year old male presenting as a new referral from his PCP, Rosita Caponefor anemia. Mr. Meng presents today with his [...] folate WNL. Very active, technically retired from [employer]. 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 [...] 78 Temp (Src) 97 (Temporal) Ht 5' 10 (1.78m) Wt 182 lb (82.6kg) SpO2 100% [...] or concerns in the meantime. Cathie Salamanca APRN.SCHOOL PSYCHOLOGIST I spent a total of 60 minutes on the date of the service which included preparing to see the patient, jebu-pr-fuzg patient care, completing clinical documentation, obtaining and/or [...] evaluation of this patient. documented in this encounterMount [facility]el [facility] System02-21-2025 NoteHNO ID: [id number] Author: CATHIE SALAMANCA, ? Service: ? Author [...] folate WNL. 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 [...] 78 Temp (Src) 97 (Temporal) Ht 5' 10 (1.78m) Wt 182 lb (82.6kg) SpO2 100% [...] as of last week, (more content not included)...[facility]11-15-2023 Discharge summary Author Marya Russ [facility] February 13, 2023 8:07am Note Date/Time February 13, 2023 8:07am [facility] Medical Records Department [address] [place] [address] Instructions for Home/Discharge Instructions 02/13/23 0806 MR#: [id number] Acct: [id number] Name: RADHA MENG Rep #:[id number] : 1950 72 From: Marya Russ MD PCP: Dr. Rosita Capone, DO Status:RE G [facility] Discharge Instructions Diet Discharge Diet: Light diet [...] weeks; after 5 PM and on call [phone] with any concerns. Test Results: Test results [...] CC: Dr. Rosita Capone DO ~ Signed [facility] Work Phone: 1(206) 773-576411-15-2023 History and physical note Author Marya Russ [facility] February 13, 2023 7:09am Note Date/Time February 13, 2023 7:09am [facility] Medical Records Department [address] [place] [address] History & Physical Exam 02/13/23 0708 MR#: [id number] Acct: [id number] Name: RADHA MENG Rep #:[id number] : 1950 72 From: Marya Russ MD PCP: Dr. Rosita Capone DO Status:RE G [facility] Location: [place] [address] History and Physical Date of Admission: 02/13/23 Date of Service: 01/21/23 MR#: [id number] Acct: [id number] Name: RADHA MENG Rep #: [id number] : 1950 Provider: Dr. Marya Russ MD Age/Sex: 72/M Location: [facility] Status: Signed Intake Vital Signs 10/18/2307:49 [...] FOR UMBILICAL HERNIA Chief Complaint: umbilical hernia Chaplaincy Required: No Is patient in pain?: No Allergies amoxicillin Allergy (Verified 01/21/23 09:14) Rash Medications antiarthritic combination no.2 900 mg tablet (glucosamine-chondroitin) 900 mg PODAILY 08/14/15 [History Confirmed 01/21/23] aspirin 81 mg chewable [...] be about 3 years. 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 ROS General General: No weight change, appetite, [...] questions were answered. Marya Russ M.D. Pager: [phone] [facility] [address] [place], [place] [address], [address] [place] [address] Office: [phone] Coding Level of Care Code Off vis,est,level 3 Diagnoses Incarcerated umbilical hernia K42.0 01/22/23 1022 <Electronically signed by Marya Russ MD> Date Marya Russ MD 02/13/23 07 <Electronically signed by Marya Russ MD> Cosigner [...] DO; Dr. Marya Russ MD ~* Signed [facility] Work Phone: Evaluation + Plan note Future Appointments [facility] Evaluation noteNo assessment information available [facility] Work Phone: evaluation note* Diagnosis Onset Date Resolution Status Incarcerated umbilical hernia acute [facility] Work Phone: Evaluation note* Diagnosis Onset Date Resolution Status History of umbilical hernia repair acute History of umbilical hernia repair acute [facility] Work Phone: Evaluation note* Diagnosis Iron deficiency anemia secondary to inadequate dietary iron intake- Primary documented in this encounter [facility] note* Diagnosis Iron deficiency anemia, unspecified iron deficiency anemia type- Primary documented in this encounter [facility] note* Diagnosis Iron deficiency anemia secondary to inadequate dietary iron intake- Primary documented in this encounter [facility] note* Diagnosis Iron deficiency anemia secondary to inadequate dietary iron intake- Primary documented in this encounter [facility] note* Diagnosis Iron deficiency anemia secondary to inadequate dietary iron intake- Primary documented in this encounter [facility] note* Diagnosis Iron deficiency anemia secondary to inadequate dietary iron intake- Primary documented in this encounter [facility] note* Diagnosis Iron deficiency anemia secondary to inadequate dietary iron intake- Primary documented in this encounter [facility] note* Diagnosis Iron deficiency anemia secondary to inadequate dietary iron intake- Primary documented in this encounter [facility] note* Diagnosis Lung nodules- Primary Other nonspecific abnormal finding of lung field Malignant neoplasm of transverse colon (HCC) Malignant neoplasm of transverse colon documented in this encounter [facility] course Narrative No data available for this section [facility] Discharge instructions No data available for this section [facility] Instructions* Name Dates Details Patient Instructions Indication:Nonsmoker Start:13-Dec-2020 Instruction Type:Provider Instructions for Treatment How to Access Health Informa tion Online using Patient Portal and [employer] Indication:Nonsmoker Start:13-Dec-2020 Instruction Type:Patient Education Patient Instructions Indication:BMI 26.0-26.9,adult Start:12-Dec-2020 Instruction Type:Provider Instructions for Treatment How to Access Health Informa tion Online using Patient Portal and [employer] Indication:BMI 26.0-26.9,adult Start:12-Dec-2020 Instruction Type:Patient Education How to Access Health Informa tion Online using Patient Portal and [employer] Indication:Nonsmoker Start:09-Mar-2020 Instruction Type:Patient Education Patient [...] tion Online using Patient Portal and [employer] Indication:BMI 24.0-24.9, adult Start:07-Jun-2021 Instruction Type:Patient Education Patient Instructions Indication:Nonsmoker Start:13-Dec-2020 Instruction Type:Provider Instructions for Treatment How to Access Health Informa tion Online using Patient Portal and [employer] Indication:Nonsmoker Start:13-Dec-2020 Instruction Type:Patient Education Patient Instructions Indication:BMI 26.0-26.9,adult Start:12-Dec-2020 Instruction Type:Provider Instructions for Treatment How to Access Health Informa tion Online using Patient Portal and [employer] Indication:BMI 26.0-26.9,adult Start:12-Dec-2020 Instruction Type:Patient Education How to Access Health Informa tion Online using Patient Portal and [employer] Indication:Nonsmoker Start:09-Mar-2020 Instruction Type:Patient Education Patient [...] tion Online using Patient Portal and [employer] Indication:BMI 24.0-24.9, adult Start:07-Jun-2021 Instruction Type:Patient Education Patient Instructions Indication:Nonsmoker Start:13-Dec-2020 Instruction Type:Provider Instructions for Treatment How to Access Health Informa tion Online using Patient Portal and [employer] Indication:Nonsmoker Start:13-Dec-2020 Instruction Type:Patient Education Patient Instructions Indication:BMI 26.0-26.9,adult Start:12-Dec-2020 Instruction Type:Provider Instructions for Treatment How to Access Health Informa tion Online using Patient Portal and [employer] Indication:BMI 26.0-26.9,adult Start:12-Dec-2020 Instruction Type:Patient Education How to Access Health Informa tion Online using Patient Portal and [employer] Indication:Nonsmoker Start:09-Mar-2020 Instruction Type:Patient Education Patient [...] tion Online using Patient Portal and [employer] Indication:BMI 24.0-24.9, adult Start:07-Jun-2021 Instruction Type:Patient Education Patient Instructions Indication:Nonsmoker Start:13-Dec-2020 Instruction Type:Provider Instructions for Treatment How to Access Health Informa tion Online using Patient Portal and [employer] Indication:Nonsmoker Start:13-Dec-2020 Instruction Type:Patient Education Patient Instructions Indication:BMI 26.0-26.9,adult Start:12-Dec-2020 Instruction Type:Provider Instructions for Treatment How to Access Health Informa tion Online using Patient Portal and [employer] Indication:BMI 26.0-26.9,adult Start:12-Dec-2020 Instruction Type:Patient Education How to Access Health Informa tion Online using Patient Portal and [employer] Indication:Nonsmoker Start:09-Mar-2020 Instruction Type:Patient Education Patient [...] tion Online using Patient Portal and [employer] Indication:BMI 24.0-24.9, adult Start:07-Jun-2021 Instruction Type:Patient Education Patient Instructions Indication:Nonsmoker Start:13-Dec-2020 Instruction Type:Provider Instructions for Treatment How to Access Health Informa tion Online using Patient Portal and [employer] Indication:Nonsmoker Start:13-Dec-2020 Instruction Type:Patient Education Patient Instructions Indication:BMI 26.0-26.9,adult Start:12-Dec-2020 Instruction Type:Provider Instructions for Treatment How to Access Health Informa tion Online using Patient Portal and [employer] Indication:BMI 26.0-26.9,adult Start:12-Dec-2020 Instruction Type:Patient Education How to Access Health Informa tion Online using Patient Portal and [employer] Indication:Nonsmoker Start:09-Mar-2020 Instruction Type:Patient Education Patient [...] tion Online using Patient Portal and [employer] Indication:BMI 24.0-24.9, adult Start:07-Jun-2021 Instruction Type:Patient Education Patient Instructions Indication:Nonsmoker Start:13-Dec-2020 Instruction Type:Provider Instructions for Treatment How to Access Health Informa tion Online using Patient Portal and [employer] Indication:Nonsmoker Start:13-Dec-2020 Instruction Type:Patient Education Patient Instructions Indication:BMI 26.0-26.9,adult Start:12-Dec-2020 Instruction Type:Provider Instructions for Treatment How to Access Health Informa tion Online using Patient Portal and [employer] Indication:BMI 26.0-26.9,adult Start:12-Dec-2020 Instruction Type:Patient Education How to Access Health Informa tion Online using Patient Portal and [employer] Indication:Nonsmoker Start:09-Mar-2020 Instruction Type:Patient Education Patient [...] tion Online using Patient Portal and [employer] Indication:BMI 26.0-26.9,adult Start:08-Jun-2022 Instruction Type:Patient Education Patient Instructions Indication:BMI 24.0-24.9, adult Start:07-Jun-2021 Instruction Type:Provider Instructions for Treatment How to Access Health Informa tion Online using Patient Portal and [employer] Indication:BMI 24.0-24.9, adult Start:07-Jun-2021 Instruction Type:Patient Education Patient Instructions Indication:Nonsmoker Start:13-Dec-2020 Instruction Type:Provider Instructions for Treatment How to Access Health Informa tion Online using Patient Portal and [employer] Indication:Nonsmoker Start:13-Dec-2020 Instruction Type:Patient Education Patient Instructions Indication:BMI 26.0-26.9,adult Start:12-Dec-2020 Instruction Type:Provider Instructions for Treatment How to Access Health Informa tion Online using Patient Portal and [employer] Indication:BMI 26.0-26.9,adult Start:12-Dec-2020 Instruction Type:Patient Education How to Access Health Informa tion Online using Patient Portal and [employer] Indication:Nonsmoker Start:09-Mar-2020 Instruction Type:Patient Education Patient [...] tion Online using Patient Portal and [employer] Indication:BMI 26.0-26.9,adult Start:16-Jul-2022 Instruction Type:Patient Education Patient Instructions Indication:BMI 26.0-26.9,adult Start:08-Jun-2022 Instruction Type:Provider Instructions for Treatment How to Access Health Informa tion Online using Patient Portal and [employer] Indication:BMI 26.0-26.9,adult Start:08-Jun-2022 Instruction Type:Patient Education Patient Instructions Indication:BMI 24.0-24.9, adult Start:07-Jun-2021 Instruction Type:Provider Instructions for Treatment How to Access Health Informa tion Online using Patient Portal and [employer] Indication:BMI 24.0-24.9, adult Start:07-Jun-2021 Instruction Type:Patient Education Patient Instructions Indication:Nonsmoker Start:13-Dec-2020 Instruction Type:Provider Instructions for Treatment How to Access Health Informa tion Online using Patient Portal and [employer] Indication:Nonsmoker Start:13-Dec-2020 Instruction Type:Patient Education Patient Instructions Indication:BMI 26.0-26.9,adult Start:12-Dec-2020 Instruction Type:Provider Instructions for Treatment How to Access Health Informa tion Online using Patient Portal and [employer] Indication:BMI 26.0-26.9,adult Start:12-Dec-2020 Instruction Type:Patient Education How to Access Health Informa tion Online using Patient Portal and [employer] Indication:Nonsmoker Start:09-Mar-2020 Instruction Type:Patient Education Patient [...] tion Online using Patient Portal and [employer] Indication:BMI 26.0-26.9,adult Start:16-Jul-2022 Instruction Type:Patient Education Patient Instructions Indication:BMI 26.0-26.9,adult Start:08-Jun-2022 Instruction Type:Provider Instructions for Treatment How to Access Health Informa tion Online using Patient Portal and [employer] Indication:BMI 26.0-26.9,adult Start:08-Jun-2022 Instruction Type:Patient Education Patient Instructions Indication:BMI 24.0-24.9, adult Start:07-Jun-2021 Instruction Type:Provider Instructions for Treatment How to Access Health Informa tion Online using Patient Portal and [employer] Indication:BMI 24.0-24.9, adult Start:07-Jun-2021 Instruction Type:Patient Education Patient Instructions Indication:Nonsmoker Start:13-Dec-2020 Instruction Type:Provider Instructions for Treatment How to Access Health Informa tion Online using Patient Portal and [employer] Indication:Nonsmoker Start:13-Dec-2020 Instruction Type:Patient Education Patient Instructions Indication:BMI 26.0-26.9,adult Start:12-Dec-2020 Instruction Type:Provider Instructions for Treatment How to Access Health Informa tion Online using Patient Portal and [employer] Indication:BMI 26.0-26.9,adult Start:12-Dec-2020 Instruction Type:Patient Education How to Access Health Informa tion Online using Patient Portal and [employer] Indication:Nonsmoker Start:09-Mar-2020 Instruction Type:Patient Education Patient [...] tion Online using Patient Portal and [employer] Indication:BMI 26.0-26.9,adult Start:16-Jul-2022 Instruction Type:Patient Education Patient Instructions Indication:BMI 26.0-26.9,adult Start:08-Jun-2022 Instruction Type:Provider Instructions for Treatment How to Access Health Informa tion Online using Patient Portal and [employer] Indication:BMI 26.0-26.9,adult Start:08-Jun-2022 Instruction Type:Patient Education Patient Instructions Indication:BMI 24.0-24.9, adult Start:07-Jun-2021 Instruction Type:Provider Instructions for Treatment How to Access Health Informa tion Online using Patient Portal and [employer] Indication:BMI 24.0-24.9, adult Start:07-Jun-2021 Instruction Type:Patient Education Patient Instructions Indication:Nonsmoker Start:13-Dec-2020 Instruction Type:Provider Instructions for Treatment How to Access Health Informa tion Online using Patient Portal and [employer] Indication:Nonsmoker Start:13-Dec-2020 Instruction Type:Patient Education Patient Instructions Indication:BMI 26.0-26.9,adult Start:12-Dec-2020 Instruction Type:Provider Instructions for Treatment How to Access Health Informa tion Online using Patient Portal and [employer] Indication:BMI 26.0-26.9,adult Start:12-Dec-2020 Instruction Type:Patient Education How to Access Health Informa tion Online using Patient Portal and [employer] Indication:Nonsmoker Start:09-Mar-2020 Instruction Type:Patient Education Patient [...] tion Online using Patient Portal and [employer] Indication:Nonsmoker Start:05-Oct-2022 Instruction Type:Patient Education Patient Instructions Indication:Nonsmoker Start:05-Oct-2022 Instruction Type:Provider Instructions for Treatment Patient Instructions Indication:BMI 26.0-26.9,adult Start:16-Jul-2022 Instruction Type:Provider Instructions for Treatment How to Access Health Informa tion Online using Patient Portal and [employer] Indication:BMI 26.0-26.9,adult Start:16-Jul-2022 Instruction Type:Patient Education Patient Instructions Indication:BMI 26.0-26.9,adult Start:08-Jun-2022 Instruction Type:Provider Instructions for Treatment How to Access Health Informa tion Online using Patient Portal and [employer] Indication:BMI 26.0-26.9,adult Start:08-Jun-2022 Instruction Type:Patient Education Patient Instructions Indication:BMI 24.0-24.9, adult Start:07-Jun-2021 Instruction Type:Provider Instructions for Treatment How to Access Health Informa tion Online using Patient Portal and [employer] Indication:BMI 24.0-24.9, adult Start:07-Jun-2021 Instruction Type:Patient Education Patient Instructions Indication:Nonsmoker Start:13-Dec-2020 Instruction Type:Provider Instructions for Treatment How to Access Health Informa tion Online using Patient Portal and [employer] Indication:Nonsmoker Start:13-Dec-2020 Instruction Type:Patient Education Patient Instructions Indication:BMI 26.0-26.9,adult Start:12-Dec-2020 Instruction Type:Provider Instructions for Treatment How to Access Health Informa tion Online using Patient Portal and [employer] Indication:BMI 26.0-26.9,adult Start:12-Dec-2020 Instruction Type:Patient Education How to Access Health Informa tion Online using Patient Portal and [employer] Indication:Nonsmoker Start:09-Mar-2020 Instruction Type:Patient Education Patient [...] tion Online using Patient Portal and [employer] Indication:BMI 26.0-26.9,adult Start:14-Jan-2023 Instruction Type:Patient Education How to Access Health Informa tion Online using Patient Portal and [employer] Indication:Nonsmoker Start:05-Oct-2022 Instruction Type:Patient Education Patient Instructions Indication:Nonsmoker Start:05-Oct-2022 Instruction Type:Provider Instructions for Treatment Patient Instructions Indication:BMI 26.0-26.9,adult Start:16-Jul-2022 Instruction Type:Provider Instructions for Treatment How to Access Health Informa tion Online using Patient Portal and [employer] Indication:BMI 26.0-26.9,adult Start:16-Jul-2022 Instruction Type:Patient Education Patient Instructions Indication:BMI 26.0-26.9,adult Start:08-Jun-2022 Instruction Type:Provider Instructions for Treatment How to Access Health Informa tion Online using Patient Portal and [employer] Indication:BMI 26.0-26.9,adult Start:08-Jun-2022 Instruction Type:Patient Education Patient Instructions Indication:BMI 24.0-24.9, adult Start:07-Jun-2021 Instruction Type:Provider Instructions for Treatment How to Access Health Informa tion Online using Patient Portal and [employer] Indication:BMI 24.0-24.9, adult Start:07-Jun-2021 Instruction Type:Patient Education Patient Instructions Indication:Nonsmoker Start:13-Dec-2020 Instruction Type:Provider Instructions for Treatment How to Access Health Informa tion Online using Patient Portal and [employer] Indication:Nonsmoker Start:13-Dec-2020 Instruction Type:Patient Education Patient Instructions Indication:BMI 26.0-26.9,adult Start:12-Dec-2020 Instruction Type:Provider Instructions for Treatment How to Access Health Informa tion Online using Patient Portal and [employer] Indication:BMI 26.0-26.9,adult Start:12-Dec-2020 Instruction Type:Patient Education How to Access Health Informa tion Online using Patient Portal and [employer] Indication:Nonsmoker Start:09-Mar-2020 Instruction Type:Patient Education Patient [...] tion Online using Patient Portal and [employer] Indication:BMI 26.0-26.9,adult Start:14-Jan-2023 Instruction Type:Patient Education How to Access Health Informa tion Online using Patient Portal and [employer] Indication:Nonsmoker Start:05-Oct-2022 Instruction Type:Patient Education Patient Instructions Indication:Nonsmoker Start:05-Oct-2022 Instruction Type:Provider Instructions for Treatment Patient Instructions Indication:BMI 26.0-26.9,adult Start:16-Jul-2022 Instruction Type:Provider Instructions for Treatment How to Access Health Informa tion Online using Patient Portal and [employer] Indication:BMI 26.0-26.9,adult Start:16-Jul-2022 Instruction Type:Patient Education Patient Instructions Indication:BMI 26.0-26.9,adult Start:08-Jun-2022 Instruction Type:Provider Instructions for Treatment How to Access Health Informa tion Online using Patient Portal and [employer] Indication:BMI 26.0-26.9,adult Start:08-Jun-2022 Instruction Type:Patient Education Patient Instructions Indication:BMI 24.0-24.9, adult Start:07-Jun-2021 Instruction Type:Provider Instructions for Treatment How to Access Health Informa tion Online using Patient Portal and [employer] Indication:BMI 24.0-24.9, adult Start:07-Jun-2021 Instruction Type:Patient Education Patient Instructions Indication:Nonsmoker Start:13-Dec-2020 Instruction Type:Provider Instructions for Treatment How to Access Health Informa tion Online using Patient Portal and [employer] Indication:Nonsmoker Start:13-Dec-2020 Instruction Type:Patient Education Patient Instructions Indication:BMI 26.0-26.9,adult Start:12-Dec-2020 Instruction Type:Provider Instructions for Treatment How to Access Health Informa tion Online using Patient Portal and [employer] Indication:BMI 26.0-26.9,adult Start:12-Dec-2020 Instruction Type:Patient Education How to Access Health Informa tion Online using Patient Portal and [employer] Indication:Nonsmoker Start:09-Mar-2020 Instruction Type:Patient Education Patient [...] tion Online using Patient Portal and [employer] Indication:BMI 26.0-26.9,adult Start:14-Jan-2023 Instruction Type:Patient Education How to Access Health Informa tion Online using Patient Portal and [employer] Indication:Nonsmoker Start:05-Oct-2022 Instruction Type:Patient Education Patient Instructions Indication:Nonsmoker Start:05-Oct-2022 Instruction Type:Provider Instructions for Treatment Patient Instructions Indication:BMI 26.0-26.9,adult Start:16-Jul-2022 Instruction Type:Provider Instructions for Treatment How to Access Health Informa tion Online using Patient Portal and [employer] Indication:BMI 26.0-26.9,adult Start:16-Jul-2022 Instruction Type:Patient Education Patient Instructions Indication:BMI 26.0-26.9,adult Start:08-Jun-2022 Instruction Type:Provider Instructions for Treatment How to Access Health Informa tion Online using Patient Portal and [employer] Indication:BMI 26.0-26.9,adult Start:08-Jun-2022 Instruction Type:Patient Education Patient Instructions Indication:BMI 24.0-24.9, adult Start:07-Jun-2021 Instruction Type:Provider Instructions for Treatment How to Access Health Informa tion Online using Patient Portal and [employer] Indication:BMI 24.0-24.9, adult Start:07-Jun-2021 Instruction Type:Patient Education Patient Instructions Indication:Nonsmoker Start:13-Dec-2020 Instruction Type:Provider Instructions for Treatment How to Access Health Informa tion Online using Patient Portal and [employer] Indication:Nonsmoker Start:13-Dec-2020 Instruction Type:Patient Education Patient Instructions Indication:BMI 26.0-26.9,adult Start:12-Dec-2020 Instruction Type:Provider Instructions for Treatment How to Access Health Informa tion Online using Patient Portal and [employer] Indication:BMI 26.0-26.9,adult Start:12-Dec-2020 Instruction Type:Patient Education How to Access Health Informa tion Online using Patient Portal and [employer] Indication:Nonsmoker Start:09-Mar-2020 Instruction Type:Patient Education Patient [...] note No data available for this section [facility] Reason for referral (narrative)No reason for referral information availableW[facility] Work Phone: Family History No Family History Records FoundUnknown Family Member Name Dates Details Family Members [...] Date/T orestes Unknown Family History?- Unknown October 7:52am Family [...] Informa tion Online using Patient Portal and [employer] Indication:Nonsmoker Start:09-Mar-2020 Instruction Type:Patient Education Patient [...] tion Online using Patient Portal and [employer] Indication:Nonsmoker Start:09-Mar-2020 Instruction Type:Patient Education Patient [...] tion Online using Patient Portal and [employer] Indication:Nonsmoker Start:09-Mar-2020 Instruction Type:Patient Education Patient [...] - Detail Indication:C. difficile diarrhea Advance Directives No Advanced Directives Records Found Name Dates Details Immunization Registry [place] - Effective on 12/13/2017. Expiration date unspecified Effective:13-Dec-2017 Name Dates Details Immunization Registry [place] - Effective on 12/13/2017. Expiration date unspecified Effective:13-Dec-2017 Name Dates Details Immunization Registry [place] - Effective on 12/13/2017. Expiration date unspecified Effective:13-Dec-2017 Name Dates Details Immunization Registry [place] - Effective on 12/13/2017. Expiration date unspecified Effective:13-Dec-2017 Name Dates Details Immunization Registry [place] - Effective on 12/13/2017. Expiration date unspecified Effective:13-Dec-2017 Name Dates Details Immunization Registry [place] - Effective on 12/13/2017. Expiration date unspecified Effective:13-Dec-2017 Name Dates Details Immunization Registry [place] - Effective on 12/13/2017. Expiration date unspecified Effective:13-Dec-2017 Name Dates Details Immunization Registry [place] - Effective on 12/13/2017. Expiration date unspecified Effective:13-Dec-2017 Name Dates Details Immunization Registry [place] - Effective on 12/13/2017. Expiration date unspecified Effective:13-Dec-2017 Name Dates Details Immunization Registry [place] - Effective on 12/13/2017. Expiration date unspecified Effective:13-Dec-2017 Name Dates Details Immunization Registry [place] - Effective on 12/13/2017. Expiration date unspecified Effective:13-Dec-2017 Name Dates Details Immunization Registry [place] - Effective on 12/13/2017. Expiration date unspecified Effective:13-Dec-2017 Name Dates Details Immunization Registry [place] - Effective on 12/13/2017. Expiration date unspecified Effective:13-Dec-2017 Advance Directive Response Recorded Date/ Time Advance Directives No March 09, 2015 1:14am Living Will No December 19, 2021 12:17pm Power of Supervisor Body Assembly No November 12:17pm Name Dates Details Immunization Registry [place] - Effective on 12/13/2017. Expiration date unspecified Effective:13-Dec-2017 Advance Directive Response Recorded Date/ Time Advance Directives No March 09, 2015 12:14am Living Will No December 19, 2021 11:17am Power of Supervisor Body Assembly No November 11:17am Name Dates Details Immunization Registry [place] - Effective on 12/13/2017. Expiration date unspecified Effective:13-Dec-2017 Name Dates Details Immunization Registry [place] - Effective on 12/13/2017. Expiration date unspecified Effective:13-Dec-2017 Name Dates Details Immunization Registry [place] - Effective on 07/11/2022. Expiration date unspecified Effective:11-Jul-2022 Name Dates Details Immunization Registry [place] - Effective on 07/11/2022. Expiration date unspecified Effective:11-Jul-2022 Name Dates Details Immunization Registry [place] - Effective on 07/11/2022. Expiration date unspecified Effective:11-Jul-2022 Name Dates Details Immunization Registry [place] - Effective on 07/11/2022. Expiration date unspecified Effective:11-Jul-2022 Name Dates Details Immunization Registry [place] - Effective on 07/11/2022. Expiration date unspecified Effective:11-Jul-2022 Name Dates Details Immunization Registry [place] - Effective on 07/11/2022. Expiration date unspecified Effective:11-Jul-2022 Advance Directive Response Recorded Date/ Time Advance Directives No March 09, 2015 12:14am Living Will No January 31 1:13pm Power of Supervisor Body Assembly No January 31, 2023 1:13pm Advance Directive Response Recorded Date/ Time Advance Directives No March 09, 2015 1:14am Living Will No January 31 2:13pm Power of Supervisor Body Assembly No January 31, 2023 2:13pm Advance Directive [...] Role Status Dates Dr. Rosita Capone DO Family Provider Active Dr. Rosita Capone DO Primary Care Provider Active Team Status: Inactive Member Role Status Dates Dr. Rosita Capone DO Primary Care Provider Active Dr. Harrison Lopez MD Attending Provider, Referr ing Provider Active Team Status: Inactive Member Role Status Dates Dr. Rosita Capone DO Primary Care Provider Active Dr. Mauricio Montgomery MD Attending Provider Active Team Status: Inactive Member Role Status Dates Dr. Rosita Capone DO Primary Care Pr ovider, Attending Provider, [...] Primary Care Provider Active Anaya Banks , COMMUNICATION LECTURER-C Attending Provider, Referrin g Provider Active Pest Control Specialist Relationship Specialty Start Date End Date Rosiat Capone DO [address] [facility] [address] [place] [address] PCP - General Internal Medicine 05/22/24 Pest Control Specialist Relationship Specialty Start Date End Date Rosita Capone DO [address] [place] [address] PCP - General Internal Medicine 05/22/24 Pest Control Specialist Relationship Specialty Start Date End Date Rosita Capone DO [address] [place] [address] PCP - General Internal Medicine 05/22/24 Pest Control Specialist Relationship Specialty Start Date End Date Rosita Capone DO [address] [place] [address] PCP - General Internal Medicine 05/22/24 Pest Control Specialist Relationship Specialty Start Date End Date Rosita Capone DO [address] [facility] [address] [place] [address] PCP - General Internal Medicine 05/22/24 Pest Control Specialist Relationship Specialty Start Date End Date Rosita Capone DO [facility] [address] [place] [address] PCP - General Internal Medicine 05/22/24 Team [...] 16, 2024 End: June 16, 2024 Amanda White Attending Provider Active Start : June 16, 2024 End: June 16, 2024 Amanda White Referring Provider Active Start : June 16, 2024 End: June 16, 2024 Pest Control Specialist Relationship Specialty Start Date End Date Rosita Capone DO [address] [place] [address] PCP - General Internal Medicine 05/22/24 Team [...] Provider Active S tart: July 15, 2024 Pest Control Specialist Relationship Specialty Start Date End Date Rosita Capone DO [address] [facility] [address] [place] [address] PCP - General Internal Medicine 05/22/24 Celia Castillo MD [address] [facility] [address] [place] [address] General Surgery 09/28/24 Team Status: Active Member Role/Relationship Status Dates Dr. Rosita Capone DO Primary care physician Active Team Status: Inactive Member Role/Relationship Status Dates Dr. Rosita Capone DO Primary care physician Active Start: December 07, 2024 End: December 07, 2024 Dr. Rosita Capone DO Attending physician Active Start: December 07, 2024 End: December 07, 2024 Dr. Rosita Capone DO Referring Provider Active Start: December 07, 2024 End: December 07, 2024 (unrecognized sect ion and content) No Status Records FoundNo Status Records FoundNo Status Records FoundNo Status Records FoundNo Status Records Found INFORMATION SOURCE (unrecogn ized section and content) DATE CREATED AUTHOR 06/16/2022 [facility] DATE CREATED AUTHOR AUTHOR'S ORGANIZ ATION 08/05/[address] [facility] DATE CREATED AUTHOR AUTHOR'S ORGANIZ ATION 09/18/2024 [facility] DATE CREATED AUTHOR AUTHOR'S ORGANIZ ATION 02/01/2025 [facility] DATE CREATED AUTHOR AUTHOR'S ORGANIZ ATION 02/11/2025 [facility] Source Comments (unrecognize d section and content) In the event this informatio n is protected by the Federal Confidentiality of Alcohol and Drug Abuse Patient Records regulations: The Federal rules restrict any use of the information to criminally investigate or prosecute any alcohol or drug abuse patient.[facility] the event this information is protected by the Federal Confidentiality of Alcohol and Drug Abuse Patient Records regulations: The Federal rules restrict any use of the information to criminally investigate or prosecute any alcohol or drug abuse patient.[facility] the event this information is protected by the Federal Confidentiality of Alcohol and Drug Abuse Patient Records regulations: The Federal rules restrict any use of the information to criminally investigate or prosecute any alcohol or drug abuse patient.[facility] System[facility] the event this information is protected by the Federal Confidentiality of Alcohol and Drug Abuse Patient Records regulations: The Federal rules restrict any use of the information to criminally investigate or prosecute any alcohol or drug abuse patient.[facility] the event this information is protected by the Federal Confidentiality of Alcohol and Drug Abuse Patient Records regulations: The Federal rules restrict any use of the information to criminally investigate or prosecute any alcohol or drug abuse patient.[facility] System[facility] the event this information is protected by the Federal Confidentiality of Alcohol and Drug Abuse Patient Records regulations: The Federal rules restrict any use of the information to criminally investigate or prosecute any alcohol or drug abuse patient.[facility] System[facility] the event this information is protected by the Federal Confidentiality of Alcohol and Drug Abuse Patient Records regulations: The Federal rules restrict any use of the information to criminally investigate or prosecute any alcohol or drug abuse patient.[facility] the event this information is protected by the Federal Confidentiality of Alcohol and Drug Abuse Patient Records regulations: The Federal rules restrict any use of the information to criminally investigate or prosecute any alcohol or drug abuse patient.[facility] System[facility] the event this information is protected by the Federal Confidentiality of Alcohol and Drug Abuse Patient Records regulations: The Federal rules restrict any use of the information to criminally investigate or prosecute any alcohol or drug abuse patient.[facility] System[facility] the event this information is protected by the Federal Confidentiality of Alcohol and Drug Abuse Patient Records regulations: The Federal rules restrict any use of the information to criminally investigate or prosecute any alcohol or drug abuse patient.[facility] System[facility] the event this information is protected by the Federal Confidentiality of Alcohol and Drug Abuse Patient Records regulations: The Federal rules restrict any use of the information to criminally investigate or prosecute any alcohol or drug abuse patient.[facility] System[facility] the event this information is protected by the Federal Confidentiality of Alcohol and Drug Abuse Patient Records regulations: The Federal rules restrict any use of the information to criminally investigate or prosecute any alcohol or drug abuse patient.[facility] System[facility] the event this information is protected by the Federal Confidentiality of Alcohol and Drug Abuse Patient Records regulations: The Federal rules restrict any use of the information to criminally investigate or prosecute any alcohol or drug abuse patient.[facility] Reason for Visit (unrecogniz ed section and content) Reason Comments New Patient Evaluation Reason Comments Non-Chemotherapy Treatment Specialty Diagnoses / Procedures Referred By Contac t Referred To Contact Diagnoses Iron deficiency anemia secondary to inadequate dietary iron intake Cathie Salamanca [address] [place] [address] Phone: tel: fax: Cathie Salamanca [address] [place] [address] Phone: tel: fax: Referral ID Status Reason Start Date Expiration Date V isits Requested Visits Authorized [id number] Authorized 05/25/2024 08/23/2024 99 99 Reason Comments [...] BE BASED ON THE PRIMARY CLINICAL RECORDS. [facility] [employer] [facility]. provides no warranty or guarantee of the accuracy or completeness of information in this document.
[2025-03-22] MEDS: Lactated Ringers 1,000 ML 15 ML IV (06:31)
--- NOTE | 2025-03-22 06:45 | PRE.ANES_ITS ---
ASA Classification* ASA Classification ASA Classification: 2 Assessment & Plan Anesthesia* Anesthesia Assessment Anesthesia Assessment: Discussed sedation and/or anesthesia options, risks, benefits, and alternatives with patient/parents/legal guardian/POA. Questions invited. The patient/parents/legal guardian/POA seems to understand and agrees to proceed with anesthesia plan. Reviewed the physical assessment, medical history, allergy history and patient home medications list prior to surgery/procedure/anesthetic and documented any changes. Performed airway and anesthesia risk assessments. Anesthesia Type Anesthesia Type: General Anesthesia Focused Assessment* Temperature: 98 F Pulse Rate: 75 Blood Pressure: 136/84 Respiratory Rate: 16 Airway Assessment Mouth opens: >3 cm Mallampati Score: II Labs Anesthesia Preop lab: CBC WBC, (4.4-11.0) 7.9 K/mm3 01/21/25, 12:39 RBC, (4.6-6.2) 5.59 M/mm3 01/21/25, 12:39 Hgb, (13.0-16.5) 15.7 g/dL 01/21/25, 12:39 Hct, (40-54) 47.4 % 01/21/25, 12:39 Plt Count, (150-450) 302 K/mm3 01/21/25, 12:39 CHEMISTRY Potassium, (3.3-5.1) 4.4 mmol/L 01/21/25, 12:39 Sodium, (133-145) 139 mmol/L 01/21/25, 12:39 BUN, (4-19) 18 mg/dL 01/21/25, 12:39 Creatinine, (0.70-1.20) 0.95 mg/dL 01/21/25, 12:39 Glucose, (70-99) 79 mg/dL 01/21/25, 12:39 COAG Pre-Assessment Diagnosis/Proposed Procedure Planned Operative Procedure(s): (B) Lap Robotic Inguinal Hernia w/mesh Anesthesia History Anesthesia History - administration specialist: Anesthesia History - administration specialist Hx Hospitalization No 03/11/25 09:02 Any Problems With Anesthesia No 03/11/25 09:02 Cholinesterase deficiency No 03/11/25 09:02 You/Your Family Experience No 03/11/25 09:02 fever (hyperthermia) with Relationship Recent Exposure to Contagious No 03/22/25 06:16 Disease Does patient have nerve No 03/11/25 09:02 stimulator Patient instructed to have device shut off --Does patient have Pacemaker No 03/22/25 06:16 or ICD? When Was Last Pacemaker Check QUESTION #4 FULL TEXT: You/Your Family Experience fever (hyperthermia) with Anesthesia Last Oral Intake Last Oral intake: Last Oral Intake NPO since 21:00 03/22/25 06:16 Meds taken in AM with sips of water? Meds patient instructed to take am of surgery PONV PONV - administration specialist: PONV - administration specialist Female No 03/11/25 09:02 HX of Motion Sickness No 03/11/25 09:02 HX of N/V After Surgery No 03/11/25 09:02 Non-Smoker Yes 03/11/25 09:02 Duration of Surgery greater Yes 03/11/25 09:02 than 60 minutes Number of Risk Factors 2 03/11/25 09:02 PONV Score Moderate Risk 03/11/25 09:02 Height & Weight Height & Weight: Anesthesia: Height & Weight Height 5 ft 10 in 03/22/25 06:16 Weight: 77.7 kg 03/22/25 06:16 Body Mass Index (BMI) 24.5 03/22/25 06:16 Respiratory Assessment Respiratory Assessment - administration specialist: Respiratory Tract Infection Hx - administration specialist Hx Respiratory Tract Infection No 03/11/25 09:02 STOP Sleep Apnea STOP Sleep Apnea - administration specialist: STOP Sleep Apnea - administration specialist Hx Hypertension No 03/11/25 09:02 Hx Sleep Apnea No 03/11/25 09:02 CPAP No 03/11/25 09:02 BIPAP No 03/11/25 09:02 Do you snore loudly (louder No 03/11/25 09:02 than talking or can be heard Do you often feel tired/ No 03/11/25 09:02 fatigued/ sleepy during daytime? Has anyone observed you stop No 03/11/25 09:02 breathing during sleep? STOP Results Negative 03/11/25 09:02 QUESTION #5 FULL TEXT : Do you snore loudly (louder than talking or can be heard through closed doors)? 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 Specify any problems Hx of Preganancy in last 3 N/A 03/11/25 09:02 Months Nurse Filling Out Transfusion VCHRISTIN 03/11/25 09:02 & Questions: Date: 03/11/25 03/11/25 09:02 Time: 09:03 03/11/25 09:02 Patient unable to answer at this time (ie. confused, unrespo /Reproduction History /Reproductive History - administration specialist: /Reproductive Hx- administration specialist Hx Now No 03/11/25 09:02 Gestational Age (in weeks): EDC: Hx Hx Para Hx Section SAB No 03/11/25 09:02 Does the father of the baby or his family experience fever w Father of the baby Malignant Hypertension history comment Active Medications Active Medications: Current Medications Generic Name Dose Route Start Last Admin Trade Name Freq PRN Reason Stop Dose Admin Cefazolin Sodium 2 gm/ Sodium 110 mls @ 200 mls/hr 03/22/25 07:30 Chloride IV 03/22/25 08:02 INTRAOP ONE Lactated Ringer's 1,000 mls @ 15 mls/hr 03/22/25 06:15 03/22/25 06:31 IV 15 mls/hr .Q48H CLAUDY Administration PFSH Medical History Cancer Prostate disease Anemia Vertigo Hypertension History of stress test Cardiology follow-up encounter History of irregular heartbeat Wears glasses History of Clostridium difficile infection Arthritis Non-smoker History of echocardiogram Incarcerated umbilical hernia BPH (benign prostatic hyperplasia) C. difficile colitis Syncope Home Medications ?Medication ?Instructions ?Recorded ?Last Taken ?Type multivitamin with folic acid 400 1 tab PO DAILY 03/21/25 History mcg tablet (Thera) finasteride 5 mg tablet (Proscar) 5 mg PO DAILY 03/21/25 History tamsulosin 0.4 mg capsule (Flomax) 0.4 mg PO QHS 12/1503/21/25 History ascorbic acid (vitamin C) 1,000 mg 1 g PO DAILY 03/21/25 History tablet (C-1000) Allergy/AdvReac Type Severity Reaction Status Date / Time adhesive tape Allergy Mild Rash Verified 03/11/25 08:57 amoxicillin Allergy Rash Verified 03/11/25 08:57 Family History Mother Arthritis Mother Heart disease Father Heart disease Mother Seizures Mother CVA (cerebral vascular accident) Surgical History History of cystoscopy Hx of colonoscopy History of colectomy History of ureteroscopy History of umbilical hernia repair History of surgery History of wisdom tooth extraction Social History household members: spouse current occupational status: employed Smoking Status: Never smoker Review of Systems (Anesthesia) ROS Narrative System reviewed and no additional complaints, except as documented.
--- NOTE | 2025-03-22 07:13 | PCM.HP.STD ---
HPI - General General Date of Service: 03/22/25 HPI Narrative RADHA MENG, is a 74 M who presents bilateral robotic inguinal hernias. Office day 02/24/2025 HPI HPI: 74-year-old male presents for bilateral inguinal hernias. Patient recently had a laparoscopic right hemicolectomy for colon cancer in July of this year at [place] by Dr. Castillo. Patient also recently had stent placement for kidney stone which stent did come out last week by Dr. Marks. Patient states he noticed the inguinal hernias when he has been doing push-ups. [facility] Medical History Cancer Prostate disease Anemia Vertigo Hypertension History of stress test Cardiology follow-up encounter History of irregular heartbeat Wears glasses History of Clostridium difficile infection Arthritis Non-smoker History of echocardiogram Incarcerated umbilical hernia BPH (benign prostatic hyperplasia) C. difficile colitis Syncope Home Medications ?Medication ?Instructions ?Recorded ?Last Taken ?Type multivitamin with folic acid 400 1 tab PO DAILY 01/24/15 03/21/25 History mcg tablet (Thera) finasteride 5 mg tablet (Proscar) 5 mg PO DAILY 12/15/17 03/21/25 History tamsulosin 0.4 mg capsule (Flomax) 0.4 mg PO QHS 12/15/17 03/21/25 History ascorbic acid (vitamin C) 1,000 mg 1 g PO DAILY 01/31/23 03/21/25 History tablet (C-1000) Allergy/AdvReac Type Severity Reaction Status Date / Time adhesive tape Allergy Mild Rash Verified 03/11/25 08:57 amoxicillin Allergy Rash Verified 03/11/25 08:57 Family History Mother Arthritis Mother Heart disease Father Heart disease Mother Seizures Mother CVA (cerebral vascular accident) Surgical History History of cystoscopy Hx of colonoscopy History of colectomy History of ureteroscopy History of umbilical hernia repair History of surgery History of wisdom tooth extraction Social History household members: spouse current occupational status: employed Smoking Status: Never smoker Patient's Goals Of Care . What would you like to achieve or improve as a result of your hospital stay?: repair of hernias Vital Signs Vital Signs Vital Signs: 03/22/25 06:16 03/22/25 06:16 03/22/25 06:16 Temperature 98 F Temperature Source Temporal Pulse Rate 75 Respiratory Rate 16 Respiratory Pattern Normal Blood Pressure 136/84 H Blood Pressure Mean 101 Blood Pressure Source Manual Blood Pressure Position Semi-Fowlers Blood Pressure Location Right Arm Baseline BP 136/84 Oxygen Delivery Method Room Air 03/22/25 06:45 Temperature 98 F Temperature Source Pulse Rate 75 Respiratory Rate 16 Respiratory Pattern Blood Pressure 136/84 H Blood Pressure Mean Blood Pressure Source Blood Pressure Position Blood Pressure Location Baseline BP Oxygen Delivery Method Weight Weight: 171 lb 4.787 oz Body Mass Index (BMI) 24.5 Physical Exam Const alert, oriented x3 and no apparent distress HEENT normocephalic and head/scalp atraumatic Resp normal respiratory effort Cardio regular rate GI soft to palpation and non-tender; Negative for non-distended Palpation: Negative for guarding Extremity no clubbing, cyanosis or edema Skin no rashes or lesions noted Neuro CN's II-XII intact bilaterally Psych mental status grossly normal Assessment & Plan Assessment/Plan (1) Bilateral inguinal hernia: PLAN: Plan Plan to do a robotic bilateral inguinal herniorrhaphy with mesh. Reviewed the procedure with the patient including the risks, including but not limited to infection, bleeding, paresthesia, chronic pain, injury to small bowel or contents of the spermatic cord, and recurrence. All questions were answered. Marya Russ M.D. Pager: [phone] [facility] [address] [place] [address], [address] [place] [id number] Office: [phone]
[2025-03-22] MEDS: Cefazolin 1 GM/5 ML Vial 2 GM IV (07:35)
[2025-03-22] MEDS: Lidocaine 1% (5 ml sdv) 5 ML Vial 10 ML IV (07:36)
--- NOTE | 2025-03-22 09:28 | PCM.OPRPT ---
Operative Report (Standard) Operative Information Date of Procedure: 03/22/25 Pre-Operative Diagnosis: Bilateral inguinal hernias Post-Operative Diagnosis: Right direct and indirect inguinal hernia, left direct inguinal hernia Surgery/Procedure Performed: Robotic bilateral inguinal hernia repairs with mesh cashier and salesperson: Yes Endodontic Assistant: Alvaro Hernandez Tasks completed by assistant store manager trainee: Opening & closing Type of Anesthesia: General/Supplemental RN Documented Start/Stop Times: Operation Date: 03/22/25 07:30 Case Time Into Pre-Op 03/22/25 06:02 Out of Pre-Op 03/22/25 07:25 Anesthesia Start 03/22/25 07:29 Into Room 03/22/25 07:29 Procedure Start 03/22/25 07:52 Procedure End 03/22/25 09:39 Anesthesia End 03/22/25 09:43 Out of Room 03/22/25 09:43 Into Recovery 03/22/25 09:46 Out of Recovery 03/22/25 10:35 Into Phase II Recovery 03/22/25 10:36 Procedure Start Time: 07:52 Procedure Stop Time: 09:39 Select all DRAINS/GRAFTS/IMPLANTS that apply: Prosthetic device Prosthetic device details: ProGrip mesh Special Medications: Ancef 2 g IV x 1 Estimated Blood Loss: <10 cc Specimen collected: No Description of surgery: Indications: 74-year-old male presented with bilateral symptomatic inguinal hernias. Robotic bilateral inguinal hernia repairs with mesh were elected elected patient was agreeable. Description of procedure: Patient was brought to operating room placed supine operative table. Timeout was completed verifying correct patient, procedure, site, positioning, special, prior to beginning procedure. General anesthesia was induced. Patient's arms were tucked and padded appropriately. Visiport was used to make the incision at Pacheco's point in the left upper quadrant. Entry into the abdomen was confirmed visually. Laparoscope was placed. Verifying no injury during initial trocar placement. Patient was placed in Trendelenburg position. Two 8 mm trochars were placed along the horizontal line in the midline and in the right upper quadrant. The initial 5 mm trocar was upsized to an 8 mm well under direct visualization. Both the inguinal regions were inspected and left direct and right direct & indirect hernias were seen. Both procedures done similarly. The median umbilical ligament was divided sharply with electrocautery. Peritoneum was incised with the endoscopic scissors along a line 2 cm above the superior edge of the hernia defect extending from the median umbilical ligament to anterior superior iliac spine. Peritoneal flap was mobilized inferiorly using blunt and sharp/cautery dissection. The inferior epigastric vessels were exposed and symphysis pubis and identified. The right indirect and direct hernia sac was inverted and dissected. Cord structures were visualized and protected. A ProGrip mesh was used for right and left inguinal hernia repairs. The mesh was rolled longitudinally into a compact cylinder and passed through the trocar. The cylinder was placed along the inferior aspect of the working space and unrolled into place to completely cover the direct, indirect and femoral spaces. The peritoneal flap was closed over mesh and secured with 3-0 V-Loc suture. After ensuring adequate hemostasis, the trochars were removed and pneumoperitoneum allowed to escape. The skin was closed with 4-0 Monocryl interrupted sutures and Steri-Strips. Patient's testicles are also confirmed in the scrotum bilaterally. Patient tolerated procedure well was taken to the postanesthesia care unit in stable condition. Surgical Findings: See operative report Complications Complications: No
--- NOTE | 2025-03-22 09:32 | DCINST_ITS ---
Discharge Instructions Procedure Hernia Diet Discharge Diet: Light diet - advance as tolerated Activity Discharge Activity: May Not Drive (while taking narcotic pain medications.) May shower in (days): 1 Lifting Restrictions: no lifting >20 lbs x 2 wks, no strenuous exercise for 4 wks Additional Activity Instructions:: Climbing stairs is fine, walking is encouraged. Sitting in bed may be uncomfortable. Sitting up using your lateral muscles (sitting up sideways) is usually more comfortable. Do not drive, work heavy equipment of sign legal documents for 24 hours. you may have scrotal swelling, an ice pack and/or athletic support can provide more comfort. Pain medications may cause nausea, you should typically eat light foods as you take your pain medications. Pain medications may also cause constipation. If you have difficulty with this, discuss with your doctor. Dressing / Incision Call your doctor if your incision/area has: Continuous Slow Oozing, Sudden Increased Bleeding, Increased Pain/ Swelling, Increased Redness, Foul Smelling Discharge and Swelling at the incision site Call your doctor if you observe: Fever of 101 or Higher Suture Line Care: Avoid Pulling/Pushing and Avoid Pinching/Bending Change Dressing in: 3 days (Leave steri-strips in place for 1 week. May protect with a gauze bandaid if needed.) Remove Dressing in: 2 days Cleanse incision/area with: Soap & Water Additional Dressing/Incision Instructions:: Steri-Strips will fall off in 7 to 10 days, if they do not fall off okay to remove after 10 days. Follow Up Care Please Follow Up With: Marya Russ MD When: Call the office for a follow-up appointment 2 weeks; after 5 PM and on the weekends call [phone] with any concerns. Test Results: Test results from this visit will be discussed in further detail at your follow- up appointment, if applicable. Discharge Plan Admission Attending Provider: Marya Russ Primary Care Provider: Rosita Hicks Instructions Print Language: [place] Discharge Orders/Prescriptions Prescriptions: New tramadol 50 mg tablet 50 mg PO Q6H PRN (Reason: pain) Qty: 5 0RF Continued multivitamin with folic acid [Thera] 1 TABLET tablet 1 tab PO DAILY Patient Comments: Vitamin tamsulosin [Flomax] 0.4 MG capsule 0.4 mg PO QHS finasteride [Proscar] 5 MG tablet 5 mg PO DAILY ascorbic acid (vitamin C) [C-1000] 1,000 mg tablet 1 g PO DAILY Referrals / Follow Up: Rosita Hicks DO [Primary Care Provider, Internal Medicine] Disposition Disposition (needs filled in before D/C Order can be placed): Home, Self Care
[2025-03-22] MEDS: fentaNYL 100 MCG/2 ML Ampul 200 MCG IV (09:43)
--- NOTE | 2025-03-22 09:50 | PCM.POST.ANE ---
Anesthesia: Postop Eval I Current Vital Signs Temperature: 97.3 F Pulse Rate: 74 Blood Pressure: 141/88 Respiratory Rate: 18 Pulse Ox: 98 Oxygen Delivery Method: Room Air Assessment Airway patent: Yes Spontaneous unlabored respirations: Yes Mental status: Awake nausea: No Vomiting: No Anesthesia Complication: No Fluid Hydration Crystalloid volume administer (ml): 1,400 Total IV fluid infused: 1,400 Progress Note Anesthesia document: Postop Eval 1 completed: Yes
--- NOTE | 2025-03-22 10:10 | POSTOPAN2_ITS ---
Anesthesia Postop Eval I Sum Postop Eval Completion status Anesthesia document: Postop Eval 1 completed: Yes Anesthesia Postop Eval I Summary Anesthesia Postop Eval I Summary: Anesthesia Postop Eval I: Assessment Summary Airway patent Yes 03/22/25 09:51 [email or web address] Spontaneous unlabored Yes 03/22/25 09:51 [email or web address] [email or web address] respirations Mental status Awake 03/22/25 09:51 [email or web address] nausea No 03/22/25 09:51 [email or web address] [email or web address] Vomiting No 03/22/25 09:51 [email or web address] Anesthesia Postop Eval I: Fluid Summary Crystalloid volume administer 1,400 03/22/25 09:51 [email or web address] (ml) Colloids volume administered ( ml) Blood Product volume administered (ml) Total IV fluid infused 1,400 03/22/25 09:51 [email or web address] Anesthesia Postop Eval I: Summary Notes Anesthesia Complication No 03/22/25 09:51 HOTEL ASSOCIATEEUGENE Anesthesia Complication Comment: Post-operative progress note Anesthesia: Postop Eval II Evaluation Mental status: Awake Pain Level: 0 nausea: No Vomiting: No
--- NOTE | 2025-03-22 10:10 | PCM.POSTANE2 ---
Anesthesia Postop Eval I Sum Postop Eval Completion status Anesthesia document: Postop Eval 1 completed: Yes Anesthesia Postop Eval I Summary Anesthesia Postop Eval I Summary: Anesthesia Postop Eval I: Assessment Summary Airway patent Yes 03/22/25 09:51 [email or web address] Spontaneous unlabored Yes 03/22/25 09:51 [email or web address] respirations Mental status Awake 03/22/25 09:51 [email or web address] nausea No 03/22/25 09:51 [email or web address] Vomiting No 03/22/25 09:51 [email or web address] Anesthesia Postop Eval I: Fluid Summary Crystalloid volume administer 1,400 03/22/25 09:51 [email or web address] (ml) Colloids volume administered ( ml) Blood Product volume administered (ml) Total IV fluid infused 1,400 03/22/25 09:51 [email or web address] Anesthesia Postop Eval I: Summary Notes Anesthesia Complication No 03/22/25 09:51 SMASHEREUGENE Anesthesia Complication Comment: Post-operative progress note Anesthesia: Postop Eval II Evaluation Mental status: Awake Pain Level: 0 nausea: No Vomiting: No
== END 2025-03-22 14:03 | disposition home or self-care (01) ==
LOC: SDC 05:51 → AC 05:52
PROVIDERS: PCP Internal Medicine; Visit Provider Surgery
PROC: (CPT 49505; principal; 2025-03-22 07:10)
DX: K40.20 Bilateral inguinal hernia, without obstruction or gangrene, not specified as recurrent (principal); I10 Essential (primary) hypertension; Z90.49 Acquired absence of other specified parts of digestive tract; Z98.890 Other specified postprocedural states; Z79.899 Other long term (current) drug therapy
CPT/HCPCS: 49505; S2900; 00830; C1781; A4216; J2405